=== PATIENT | female | born 1940 | race Caucasian/White ===

== ENCOUNTER 2018-07-10 21:16 | Emergency (ER) | payer OTHER ==
--- OUTSIDE RECORDS SUMMARY | 2018-07-10 21:18 | XMS REPORT ---
:1940 [facility] [address] [place] [address] Care Team Providers Name Role Phone DOMINIC ANN Unavailable Unavailable Problems This patient has no known problems. Allergies, Adverse Reactions, Alerts This patient has no known allergies or adverse reactions. Medications This patient has no known medications. Results Test Description Test Time Test Comments Text Results Atomic Results Result Comments RAD, CHEST, 1 2018-04-19 10:16:00 Reason for exam:->S/P FINAL REPORT PATIENT ID: VIEW, NON DEPT EVARShould this be [id number] Chest one view performed at the INDICATION: EVAR bedside?->Yes COMPARISON: 04/18/2018 IMPRESSION: The aorta remains ectatic/tortuous, exaggerated by obliquity. The cardiac silhouette is enlarged. There are coarsened interstitial markings and faint basilar opacities suggestive of atelectasis. No new consolidation, significant pleural effusion, or pneumothorax is seen. Abdominal aortic stent graft is present. The bones appear unchanged. A lower right chest skin fold is suspected. Signed: Dena Talaveraort Verified Date/Time: 04/19/2018 10:16:05 Reading Location: [facility] Radiology Reading Room PHORUS 2018-04-19 05:21:00 Test Item Value Reference Range Comments PHOSPHORUS (BEAKER) (test awrg=323) 4.0 mg/dL 2.3-4.7 [id number] 05:21:00 Test Item Value Reference Range Comments MAGNESIUM (BEAKER) (test wrpj=824) 2.2 mg/dL 1.6-2.6 BASIC METABOLIC [id number] 05:21:00 Test Item Value Reference Range Comments SODIUM (BEAKER) (test 141 meq/L 136-145 mhap=027) POTASSIUM (BEAKER) (test 3.6 meq/L 3.5-5.1 tknq=387) CHLORIDE (BEAKER) (test 106 meq/L 98-107 jqay=824) CO2 (BEAKER) (test 28 meq/L 22-29 ndee=141) BLOOD UREA NITROGEN 20 mg/dL 7-21 (BEAKER) (test xswp=146) CREATININE (BEAKER) (test 0.87 mg/dL 0.57-1.25 mobl=569) GLUCOSE RANDOM (BEAKER) 122 mg/dL 70-105 (test loaz=997) CALCIUM (BEAKER) (test 9.0 mg/dL 8.4-10.2 gamg=701) EGFR (BEAKER) (test 63 mL/min/1.73 sq m ESTIMATED GFR IS NOT fetm=6562) ACCURATE CREATININE CLEARANCE IN PREDICTING GLOMERULAR FILTRATION RATE. ESTIMATED GFR IS NOT APPLICABLE FOR DIALYSIS PATIENTS. [id number] 04:58:00 Test Item Value Reference Range Comments PARTIAL THROMBOPLASTIN TIME (BEAKER) (test 36.6 seconds 22.5-36.0 gcbk=857) PROTHROMBIN TIME/[id number] 04:57:00 Test Item Value Reference Range Comments PROTIME (BEAKER) (test clni=751) 15.9 seconds 11.7-14.7 INR (BEAKER) (test dbep=669) 1.3 <=5.9 RECOMMENDED COUMADIN/WARFARIN INR THERAPY RANGESSTANDARD DOSE: 2.0 - 3.0 Includes: PROPHYLAXIS forvenous thrombosis, systemic embolization; TREATMENT for venous thrombosis and/or pulmonary embolus.HIGH RISK: Target INR is 2.5-3.5 for patients with mechanical heart valves.CBC (HEMOGRAM ONLY)2018-04-19 04:47:00 Test Item Value Reference Range Comments WHITE BLOOD CELL COUNT (BEAKER) (test qbak=685) 9.5 K/ L 3.5-10.5 RED BLOOD CELL COUNT (BEAKER) (test gtzg=475) 3.64 M/ L 3.93-5.22 HEMOGLOBIN (BEAKER) (test zhbo=455) 10.6 GM/DL 11.2-15.7 HEMATOCRIT (BEAKER) (test qzny=703) 33.8 % 34.1-44.9 MEAN CORPUSCULAR VOLUME (BEAKER) (test epsj=621) 92.9 fL 79.4-94.8 MEAN CORPUSCULAR HEMOGLOBIN (BEAKER) (test 29.1 pg 25.6-32.2 cbnk=851) MEAN CORPUSCULAR HEMOGLOBIN CONC (BEAKER) (test 31.4 GM/DL 32.2-35.5 yhqz=116) RED CELL DISTRIBUTION WIDTH (BEAKER) (test 14.1 % 11.7-14.4 mrtw=969) PLATELET COUNT (BEAKER) (test ahoq=002) 232 K/CU MM 150-450 MEAN PLATELET VOLUME (BEAKER) (test wvxl=603) 10.9 fL 9.4-12.3 NUCLEATED RED BLOOD CELLS (BEAKER) (test 0 /100 WBC 0-0 zvvq=848) RAD, CHEST, 1 VIEW, NON [id number] 08:00:00Reason for exam:->S/P EVARShould this be performed at the bedside?->YesFINAL REPORT Chest one view INDICATION: EVAR COMPARISON: 04/17/2018 IMPRESSION: The aorta remains ectatic/tortuous. There is stable cardiomegaly. There are coarsened interstitial markings. Faint basilar opacities suggest atelectasis. No new consolidation, significant pleural effusion, or pneumothorax is seen. Abdominal aortic stent graft is present. The bones appear unchanged. Signed: Dena Talavera Verified Date/Time: 04/18/2018 08:00:53 Reading Location: [facility] Radiology Reading Room [id number] 05:25:00 Test Item Value Reference Range Comments PHOSPHORUS (BEAKER) (test wuzw=710) 3.6 mg/dL 2.3-4.7 [id number] 05:25:00 Test Item Value Reference Range Comments MAGNESIUM (BEAKER) (test mvdq=887) 2.2 mg/dL 1.6-2.6 BASIC METABOLIC [id number] 05:25:00 Test Item Value Reference Range Comments SODIUM (BEAKER) (test 139 meq/L 136-145 xfyy=812) POTASSIUM (BEAKER) (test 3.2 meq/L 3.5-5.1 bbjg=890) CHLORIDE (BEAKER) (test 103 meq/L 98-107 yhuu=063) CO2 (BEAKER) (test 25 meq/L 22-29 itkg=548) BLOOD UREA NITROGEN 17 mg/dL 7-21 (BEAKER) (test sldb=378) CREATININE (BEAKER) (test 0.86 mg/dL 0.57-1.25 ytkr=707) GLUCOSE RANDOM (BEAKER) 150 mg/dL 70-105 (test kcbh=281) CALCIUM (BEAKER) (test 9.6 mg/dL 8.4-10.2 rcju=291) EGFR (BEAKER) (test 64 mL/min/1.73 sq m ESTIMATED GFR IS NOT bjmp=8029) ACCURATE CREATININE CLEARANCE IN PREDICTING GLOMERULAR FILTRATION RATE. ESTIMATED GFR IS NOT APPLICABLE FOR DIALYSIS PATIENTS. [id number] 05:06:00 Test Item Value Reference Range Comments PARTIAL THROMBOPLASTIN TIME (BEAKER) (test 36.5 seconds 22.5-36.0 gdgp=493) PROTHROMBIN TIME/[id number] 05:05:00 Test Item Value Reference Range Comments PROTIME (BEAKER) (test bfpr=874) 16.5 seconds 11.7-14.7 INR (BEAKER) (test reyc=976) 1.3 <=5.9 RECOMMENDED COUMADIN/WARFARIN INR THERAPY RANGESSTANDARD DOSE: 2.0 - 3.0 Includes: PROPHYLAXIS forvenous thrombosis, systemic embolization; TREATMENT for venous thrombosis and/or pulmonary embolus.HIGH RISK: Target INR is 2.5-3.5 for patients with mechanical heart valves.CBC (HEMOGRAM ONLY)2018-04-18 04:52:00 Test Item Value Reference Range Comments WHITE BLOOD CELL COUNT (BEAKER) (test wzhw=307) 11.2 K/ L 3.5-10.5 RED BLOOD CELL COUNT (BEAKER) (test yrle=721) 3.90 M/ L 3.93-5.22 HEMOGLOBIN (BEAKER) (test wddx=424) 11.3 GM/DL 11.2-15.7 HEMATOCRIT (BEAKER) (test squn=892) 35.7 % 34.1-44.9 MEAN CORPUSCULAR VOLUME (BEAKER) (test prqu=121) 91.5 fL 79.4-94.8 MEAN CORPUSCULAR HEMOGLOBIN (BEAKER) (test 29.0 pg 25.6-32.2 ikmq=661) MEAN CORPUSCULAR HEMOGLOBIN CONC (BEAKER) (test 31.7 GM/DL 32.2-35.5 pmpz=040) RED CELL DISTRIBUTION WIDTH (BEAKER) (test 14.2 % 11.7-14.4 rpzi=215) PLATELET COUNT (BEAKER) (test exzi=908) 208 K/CU MM 150-450 MEAN PLATELET VOLUME (BEAKER) (test ligl=847) 10.6 fL 9.4-12.3 NUCLEATED RED BLOOD CELLS (BEAKER) (test 0 /100 WBC 0-0 wcyw=789) RAD, CHEST, 1 VIEW, NON [id number] 10:31:00Reason for exam:->S/P EVARShould this be performed at the bedside?->YesFINAL REPORT Chest, one view. HISTORY: Status post aortic repair COMPARISON: 2017 IMPRESSION: No significant change. Unchanged tortuosity and ectasia of the thoracic aorta.Mild interstitial edema. No large pleural effusion or pneumothorax. Signed: Gera Hernandez Verified Date/Time: 04/17/2018 10: 31:41 Reading Location: [facility] C013Y CT Body Reading Room [id number] 06: 43:00 Test Item Value Reference Range Comments PHOSPHORUS (BEAKER) (test vovc=934) 3.3 mg/dL 2.3-4.7 [id number] 06:43:00 Test Item Value Reference Range Comments MAGNESIUM (BEAKER) (test mxix=297) 2.0 mg/dL 1.6-2.6 [id number] 06:23:00 Test Item Value Reference Range Comments PARTIAL THROMBOPLASTIN TIME (BEAKER) (test 36.4 seconds 22.5-36.0 uknz=112) PROTHROMBIN TIME/[id number] 06:22:00 Test Item Value Reference Range Comments PROTIME (BEAKER) (test ultq=443) 17.3 seconds 11.7-14.7 INR (BEAKER) (test yolf=076) 1.4 <=5.9 RECOMMENDED COUMADIN/WARFARIN INR THERAPY RANGESSTANDARD DOSE: 2.0 - 3.0 Includes: PROPHYLAXIS forvenous thrombosis, systemic embolization; TREATMENT for venous thrombosis and/or pulmonary embolus.HIGH RISK: Target INR is 2.5-3.5 for patients with mechanical heart valves.CBC (HEMOGRAM ONLY)2018-04-17 06:13:00 Test Item Value Reference Range Comments WHITE BLOOD CELL COUNT (BEAKER) (test jdle=066) 13.2 K/ L 3.5-10.5 RED BLOOD CELL COUNT (BEAKER) (test arul=290) 3.84 M/ L 3.93-5.22 HEMOGLOBIN (BEAKER) (test oeqq=921) 11.5 GM/DL 11.2-15.7 HEMATOCRIT (BEAKER) (test mhzk=406) 34.9 % 34.1-44.9 MEAN CORPUSCULAR VOLUME (BEAKER) (test pmog=194) 90.9 fL 79.4-94.8 MEAN CORPUSCULAR HEMOGLOBIN (BEAKER) (test 29.9 pg 25.6-32.2 xwsk=550) MEAN CORPUSCULAR HEMOGLOBIN CONC (BEAKER) (test 33.0 GM/DL 32.2-35.5 eevz=287) RED CELL DISTRIBUTION WIDTH (BEAKER) (test 14.0 % 11.7-14.4 pqir=539) PLATELET COUNT (BEAKER) (test eanu=862) 201 K/CU MM 150-450 MEAN PLATELET VOLUME (BEAKER) (test soye=435) 10.6 fL 9.4-12.3 NUCLEATED RED BLOOD CELLS (BEAKER) (test 0 /100 WBC 0-0 owiy=903) RAD, CHEST, 1 VIEW, NON [id number] 09:02:00Reason for exam:->S/P EVARShould this be performed at the bedside?->YesFINAL REPORT Chest, one view. HISTORY: Status post aortic repair COMPARISON: 2017 IMPRESSION: No significant change. Unchanged tortuosity and ectasia of the thoracic aorta.Lungs clear without focal consolidation. No large pleural effusion or pneumothorax. Unchanged right apical pleural thickening. Partially visualized aortic stent graft in the abdominal aorta. Signed: Gera Hernandez MDReport Verified Date/Time: 04/16/2018 09:02:11 Reading Location: [facility] B1 C013Y CT Body Reading Room [id number] 06:11:00 Test Item Value Reference Range Comments PHOSPHORUS (BEAKER) (test qzoh=552) 1.9 mg/dL 2.3-4.7 [id number] 06:11:00 Test Item Value Reference Range Comments MAGNESIUM (BEAKER) (test arvv=546) 2.0 mg/dL 1.6-2.6 BASIC METABOLIC [id number] 06:11:00 Test Item Value Reference Range Comments SODIUM (BEAKER) (test 137 meq/L 136-145 uemg=951) POTASSIUM (BEAKER) (test 3.2 meq/L 3.5-5.1 uerk=371) CHLORIDE (BEAKER) (test 104 meq/L 98-107 cwez=990) CO2 (BEAKER) (test 24 meq/L 22-29 wezp=703) BLOOD UREA NITROGEN 7 mg/dL 7-21 (BEAKER) (test lyzq=744) CREATININE (BEAKER) (test 0.86 mg/dL 0.57-1.25 awdi=499) GLUCOSE RANDOM (BEAKER) 179 mg/dL 70-105 (test qdhx=186) CALCIUM (BEAKER) (test 9.0 mg/dL 8.4-10.2 fmav=204) EGFR (BEAKER) (test 64 mL/min/1.73 sq m ESTIMATED GFR IS NOT xlpc=5153) ACCURATE CREATININE CLEARANCE IN PREDICTING GLOMERULAR FILTRATION RATE. ESTIMATED GFR IS NOT APPLICABLE FOR DIALYSIS PATIENTS. [id number] 05:46:00 Test Item Value Reference Range Comments PARTIAL THROMBOPLASTIN TIME (BEAKER) (test 32.0 seconds 22.5-36.0 nwzv=045) PROTHROMBIN TIME/[id number] 05:45:00 Test Item Value Reference Range Comments PROTIME (BEAKER) (test wgml=465) 15.0 seconds 11.7-14.7 INR (BEAKER) (test ohwm=290) 1.2 <=5.9 RECOMMENDED COUMADIN/WARFARIN INR THERAPY RANGESSTANDARD DOSE: 2.0 - 3.0 Includes: PROPHYLAXIS forvenous thrombosis, systemic embolization; TREATMENT for venous thrombosis and/or pulmonary embolus.HIGH RISK: Target INR is 2.5-3.5 for patients with mechanical heart valves.CBC (HEMOGRAM ONLY)2018-04-16 05:31:00 Test Item Value Reference Range Comments WHITE BLOOD CELL COUNT (BEAKER) (test gpti=920) 12.0 K/ L 3.5-10.5 RED BLOOD CELL COUNT (BEAKER) (test xxyr=343) 4.19 M/ L 3.93-5.22 HEMOGLOBIN (BEAKER) (test vihp=368) 12.4 GM/DL 11.2-15.7 HEMATOCRIT (BEAKER) (test uzxg=573) 38.6 % 34.1-44.9 MEAN CORPUSCULAR VOLUME (BEAKER) (test sgon=466) 92.1 fL 79.4-94.8 MEAN CORPUSCULAR HEMOGLOBIN (BEAKER) (test 29.6 pg 25.6-32.2 cnbf=922) MEAN CORPUSCULAR HEMOGLOBIN CONC (BEAKER) (test 32.1 GM/DL 32.2-35.5 ddhf=324) RED CELL DISTRIBUTION WIDTH (BEAKER) (test 14.0 % 11.7-14.4 xeln=386) PLATELET COUNT (BEAKER) (test ayby=331) 223 K/CU MM 150-450 MEAN PLATELET VOLUME (BEAKER) (test nibc=300) 10.3 fL 9.4-12.3 NUCLEATED RED BLOOD CELLS (BEAKER) (test 0 /100 WBC 0-0 xpdd=072) [id number] 13:56:00 Test Item Value Reference Range Comments ACTIVATED CLOTTING TIME 257 sec TESTED AT [facility] [address] (BEAKER) (test rehu=715) [place] [address] RAD, ABDOMEN/KUB, 1 VIEW [id number] 12:39:00Reason for exam:->Postop AAAFINAL REPORT CLINICAL HISTORY: Postop AAA TECHNIQUE: Supine abdomen COMPARISON: None IMPRESSION: The bowel gas pattern is nonspecific. Free air and air-fluid levels are not seen but cannot be definitively excluded on the supine view. There is vicarious excretion of contrast in the bilateral nephroureteral collecting systems. There is an aortobiiliac stent. Signed: Hardik GodwinMDReport Verified Date/Time: 2017 12:39:57 Reading Location: [facility] Radiology Reading Room RAD, CHEST , 1 VIEW, NON [id number] 12:38:00For chest painReason for exam:->post opShould this be performed at the bedside?->YesFINAL REPORT CLINICAL HISTORY: post op TECHNIQUE: 1 view of the chest. COMPARISON: 04/10/2018 IMPRESSION: There are no focal infiltrates or effusions. Cardiomegaly is again seen with tortuosity of the thoracic aorta. Signed: Hardik Godwin MDReport Verified Date/Time: 04/15/201812:38:40 Reading Location: [facility] Radiology Reading Room [id number] 11:51:00 Test Item Value Reference Range Comments PHOSPHORUS (BEAKER) (test oebc=541) 3.2 mg/dL 2.3-4.7 BASIC METABOLIC [id number] 11:51:00 Test Item Value Reference Range Comments SODIUM (BEAKER) (test 140 meq/L 136-145 rwrj=614) POTASSIUM (BEAKER) (test 3.8 meq/L 3.5-5.1 shtp=629) CHLORIDE (BEAKER) (test 109 meq/L 98-107 kvhm=207) CO2 (BEAKER) (test 24 meq/L 22-29 dgyz=400) BLOOD UREA NITROGEN 12 mg/dL 7-21 (BEAKER) (test emsy=627) CREATININE (BEAKER) (test 0.77 mg/dL 0.57-1.25 qsjh=317) GLUCOSE RANDOM (BEAKER) 176 mg/dL 70-105 (test qdtq=201) CALCIUM (BEAKER) (test 9.7 mg/dL 8.4-10.2 lkin=929) EGFR (BEAKER) (test 73 mL/min/1.73 sq m ESTIMATED GFR IS NOT flfb=0371) ACCURATE CREATININE CLEARANCE IN PREDICTING GLOMERULAR FILTRATION RATE. ESTIMATED GFR IS NOT APPLICABLE FOR DIALYSIS PATIENTS. CBC W/PLT COUNT & AUTO [id number] 11:23:00 Test Item Value Reference Range Comments WHITE BLOOD CELL COUNT (BEAKER) (test zgxb=310) 12.0 K/ L 3.5-10.5 RED BLOOD CELL COUNT (BEAKER) (test gonr=255) 3.84 M/ L 3.93-5.22 HEMOGLOBIN (BEAKER) (test ocpd=730) 11.4 GM/DL 11.2-15.7 HEMATOCRIT (BEAKER) (test cqak=172) 35.7 % 34.1-44.9 MEAN CORPUSCULAR VOLUME (BEAKER) (test pvum=761) 93.0 fL 79.4-94.8 MEAN CORPUSCULAR HEMOGLOBIN (BEAKER) (test 29.7 pg 25.6-32.2 vniv=403) MEAN CORPUSCULAR HEMOGLOBIN CONC (BEAKER) (test 31.9 GM/DL 32.2-35.5 gmmj=656) RED CELL DISTRIBUTION WIDTH (BEAKER) (test 14.1 % 11.7-14.4 agpn=173) PLATELET COUNT (BEAKER) (test grcb=548) 207 K/CU MM 150-450 MEAN PLATELET VOLUME (BEAKER) (test dpap=273) 10.7 fL 9.4-12.3 NUCLEATED RED BLOOD CELLS (BEAKER) (test 0 /100 WBC 0-0 yzhz=065) NEUTROPHILS RELATIVE PERCENT (BEAKER) (test 77 % buvq=731) LYMPHOCYTES RELATIVE PERCENT (BEAKER) (test 15 % myws=825) MONOCYTES RELATIVE PERCENT (BEAKER) (test 6 % dypf=971) EOSINOPHILS RELATIVE PERCENT (BEAKER) (test 1 % wlcd=266) BASOPHILS RELATIVE PERCENT (BEAKER) (test 1 % pktn=859) NEUTROPHILS ABSOLUTE COUNT (BEAKER) (test 9.14 K/ L 1.56-6.13 etsm=423) LYMPHOCYTES ABSOLUTE COUNT (BEAKER) (test 1.78 K/ L 1.18-3.74 xzpf=261) MONOCYTES ABSOLUTE COUNT (BEAKER) (test 0.72 K/ L 0.24-0.36 ayoi=624) EOSINOPHILS ABSOLUTE COUNT (BEAKER) (test 0.16 K/ L 0.04-0.36 atbw=723) BASOPHILS ABSOLUTE COUNT (BEAKER) (test 0.06 K/ L 0.01-0.08 helj=430) IMMATURE GRANULOCYTES-RELATIVE PERCENT (BEAKER) 1 % 0-1 (test ldnl=5010) PROTHROMBIN TIME/[id number] 11:22:00 Test Item Value Reference Range Comments PROTIME (BEAKER) (test ewlf=459) 15.7 seconds 11.7-14.7 INR (BEAKER) (test huzz=457) 1.3 <=5.9 RECOMMENDED COUMADIN/WARFARIN INR THERAPY RANGESSTANDARD DOSE: 2.0 - 3.0 Includes: PROPHYLAXIS forvenous thrombosis, systemic embolization; TREATMENT for venous thrombosis and/or pulmonary embolus.HIGH RISK: Target INR is 2.5-3.5 for patients with mechanical heart valves.CALCIUM, [id number] 11:06:00 Test Item Value Reference Range Comments CALCIUM IONIZED (BEAKER) (test vpie=221) 1.25 mmol/L 1.12-1.27 PH, BLOOD (BEAKER) (test sbla=3718) 7.37 HEPATITIS C [id number] 15:18:00 Test Item Value Reference Range Comments HEPATITIS C ANTIBODY (BEAKER) (test xlli=689) Nonreactive Nonreactive HEPATITIS B [id number] 15:18:00 Test Item Value Reference Range Comments HEPATITIS B CORE TOTAL ANTIBODY (BEAKER) (test Nonreactive Nonreactive ueca=222) HEPATITIS B SURFACE ANTIBODY (BEAKER) (test 63.1 mIU/mL <8.0 wofc=820) HEPATITIS B SURFACE ANTIGEN (2) (BEAKER) (test Nonreactive Nonreactive yypi=4148) HIV-1 ANTIGEN WITH HIV-1/2 [id number] 15:18:00 Test Item Value Reference Range Comments HIV-1 ANTIGEN WITH HIV 1\T\2 ANTIBODY (2) Nonreactive Nonreactive (BEAKER) (test wmfp=9238) [id number] 15:08:00 Test Item Value Reference Range Comments LIPASE (BEAKER) (test sxkd=828) 10 U/L 8-78 [id number] 15:08:00 Test Item Value Reference Range Comments AMYLASE (BEAKER) (test srwg=252) 40 U/L 25-125 BASIC METABOLIC [id number] 15:08:00 Test Item Value Reference Range Comments SODIUM (BEAKER) (test 141 meq/L 136-145 kqax=016) POTASSIUM (BEAKER) (test 3.6 meq/L 3.5-5.1 aaeq=554) CHLORIDE (BEAKER) (test 104 meq/L 98-107 zsfr=379) CO2 (BEAKER) (test 27 meq/L 22-29 ahfe=096) BLOOD UREA NITROGEN 12 mg/dL 7-21 (BEAKER) (test ppgg=591) CREATININE (BEAKER) (test 0.86 mg/dL 0.57-1.25 hwko=226) GLUCOSE RANDOM (BEAKER) 112 mg/dL 70-105 (test pmvk=975) CALCIUM (BEAKER) (test 9.8 mg/dL 8.4-10.2 yxvm=741) EGFR (BEAKER) (test 64 mL/min/1.73 sq m ESTIMATED GFR IS NOT sejt=9405) ACCURATE CREATININE CLEARANCE IN PREDICTING GLOMERULAR FILTRATION RATE. ESTIMATED GFR IS NOT APPLICABLE FOR DIALYSIS PATIENTS. HEPATIC FUNCTION [id number] 15:08:00 Test Item Value Reference Range Comments TOTAL PROTEIN (BEAKER) (test cvku=511) 7.1 gm/dL 6.0-8.3 ALBUMIN (BEAKER) (test wqhr=7408) 4.0 g/dL 3.5-5.0 BILIRUBIN TOTAL (BEAKER) (test umob=649) 0.4 mg/dL 0.2-1.2 BILIRUBIN DIRECT (BEAKER) (test jrme=074) 0.2 mg/dL 0.1-0.5 ALKALINE PHOSPHATASE (BEAKER) (test elro=879) 135 U/L 40-150 AST (SGOT) (BEAKER) (test ozgt=982) 22 U/L 5-34 ALT (SGPT) (BEAKER) (test ldfs=359) 22 U/L 6-55 LACTATE DEHYDROGENASE (LDH)2018-04-14 15:08:00 Test Item Value Reference Range Comments LACTATE DEHYDROGENASE (BEAKER) (test qvru=411) 238 U/L 125-220 [id number] 14:47:00 Test Item Value Reference Range Comments PARTIAL THROMBOPLASTIN TIME (BEAKER) (test 31.9 seconds 22.5-36.0 iibn=008) PROTHROMBIN [id number] 14:46:00 Test Item Value Reference Range Comments PROTIME (BEAKER) (test jeop=266) 14.1 seconds 11.7-14.7 INR (BEAKER) (test ookh=477) 1.1 <=5.9 RECOMMENDED COUMADIN/WARFARIN INR THERAPY RANGESSTANDARD DOSE: 2.0 - 3.0 Includes: PROPHYLAXIS forvenous thrombosis, systemic embolization; TREATMENT for venous thrombosis and/or pulmonary embolus.HIGH RISK: Target INR is 2.5-3.5 for patients with mechanical heart valves.RETICULOCYTE [id number] 14:36:00 Test Item Value Reference Range Comments RETICULOCYTE COUNT PCT (BEAKER) (test ftkx=253) 1.0 % 0.5-1.7 CBC W/PLT COUNT & AUTO [id number] 14:36:00 Test Item Value Reference Range Comments WHITE BLOOD CELL COUNT (BEAKER) (test bgjr=552) 9.3 K/ L 3.5-10.5 RED BLOOD CELL COUNT (BEAKER) (test xsws=252) 4.05 M/ L 3.93-5.22 HEMOGLOBIN (BEAKER) (test zygs=262) 12.2 GM/DL 11.2-15.7 HEMATOCRIT (BEAKER) (test nxhz=085) 37.2 % 34.1-44.9 MEAN CORPUSCULAR VOLUME (BEAKER) (test iwwo=667) 91.9 fL 79.4-94.8 MEAN CORPUSCULAR HEMOGLOBIN (BEAKER) (test 30.1 pg 25.6-32.2 hnpc=352) MEAN CORPUSCULAR HEMOGLOBIN CONC (BEAKER) (test 32.8 GM/DL 32.2-35.5 yyya=837) RED CELL DISTRIBUTION WIDTH (BEAKER) (test 14.2 % 11.7-14.4 gpmk=058) PLATELET COUNT (BEAKER) (test yixv=547) 259 K/CU MM 150-450 MEAN PLATELET VOLUME (BEAKER) (test nhbj=528) 11.1 fL 9.4-12.3 NUCLEATED RED BLOOD CELLS (BEAKER) (test 0 /100 WBC 0-0 eulw=694) NEUTROPHILS RELATIVE PERCENT (BEAKER) (test 70 % sahi=971) LYMPHOCYTES RELATIVE PERCENT (BEAKER) (test 19 % yycd=489) MONOCYTES RELATIVE PERCENT (BEAKER) (test 8 % mynn=209) EOSINOPHILS RELATIVE PERCENT (BEAKER) (test 2 % jmsr=894) BASOPHILS RELATIVE PERCENT (BEAKER) (test 1 % prud=596) NEUTROPHILS ABSOLUTE COUNT (BEAKER) (test 6.49 K/ L 1.56-6.13 jmdp=028) LYMPHOCYTES ABSOLUTE COUNT (BEAKER) (test 1.74 K/ L 1.18-3.74 xzxa=410) MONOCYTES ABSOLUTE COUNT (BEAKER) (test 0.78 K/ L 0.24-0.36 cqvz=811) EOSINOPHILS ABSOLUTE COUNT (BEAKER) (test 0.14 K/ L 0.04-0.36 cfjj=657) BASOPHILS ABSOLUTE COUNT (BEAKER) (test 0.07 K/ L 0.01-0.08 rnmr=335) IMMATURE GRANULOCYTES-RELATIVE PERCENT (BEAKER) 0 % 0-1 (test rlyo=6226) URINALYSIS W/ [id number] 14:25:00 Test Item Value Reference Range Comments COLOR (BEAKER) (test cpoh=229) Yellow CLARITY (BEAKER) (test nfcv=566) Clear SPECIFIC GRAVITY UA (BEAKER) (test qzie=546) 1.010 1.001-1.035 PH UA (BEAKER) (test vhxc=990) 6.5 5.0-8.0 PROTEIN UA (BEAKER) (test jipf=158) 20 mg/dL Negative GLUCOSE UA (BEAKER) (test nlrr=022) Negative Negative KETONES UA (BEAKER) (test jkuf=498) Negative Negative BILIRUBIN UA (BEAKER) (test guni=477) Negative Negative BLOOD UA (BEAKER) (test frgh=383) Negative Negative NITRITE UA (BEAKER) (test fbrp=495) Negative Negative LEUKOCYTE ESTERASE UA (BEAKER) (test eejy=136) Negative Negative UROBILINOGEN UA (BEAKER) (test ttwz=090) 0.2 mg/dL 0.2-1.0 RBC UA (BEAKER) (test wfxj=725) < /HPF WBC UA (BEAKER) (test thql=259) < /HPF MUCUS (BEAKER) (test wivq=3062) Rare SQUAMOUS EPITHELIAL (BEAKER) (test hdds=877) < /HPF HYALINE CASTS (BEAKER) (test mkej=547) 4 /LPF SOURCE(BEAKER) (test wzhk=4895) RAD, CHEST, 2 [id number] 14:12:00Reason for exam:->surgeryFINAL REPORT Chest, two views HISTORY: Surgery COMPARISON: None. DISCUSSION: Lungs are clear without focal consolidation. Cardiomediastinal silhouette is unremarkable. Tortuosityand ectasia of the thoracic aorta. No acute osseous abnormality. No pleural effusion or pneumothorax. Visualized portions of the upper abdomen are unremarkable. IMPRESSION: No acute cardiopulmonary abnormality. Signed: Gera Hernandez MDReport Verified Date/Time: 04/14/2018 14:12:09 Reading Location: [address] Radiology Reading Room 02:12 PM
--- OUTSIDE RECORDS SUMMARY | 2018-07-10 21:18 | XMS REPORT | Clinical Summary ---
:1940 Author Organization [facility] Address [address] [place] [address] Phone Care Team Providers Name Role Phone Unavailable Primary Care Provider Unavailable Allergies Active Allergy Reactions Severity Noted Date Comments Hydrocodone-Acetaminophen Other (See Comments) 04/13/2018 hyperactivity Lisinopril 04/13/2018 angioedema Butorphanol Tartrate Other (See Comments) 04/14/2018 Hallucinations Flbtqmz-Rie-Nza Reductase Other (See Comments) 04/14/2018 Flu like symptoms Inhibitors Current Medications Prescription Sig. Disp. Refills Start Date End Date Status ALPRAZolam (XANAX) Take 0.5 mg Active 0.5 MG tablet by mouth 3 (three) times daily as needed for Anxiety. PARoxetine (PAXIL) Take 10 mg by Active 10 MG tablet mouth every morning. loratadine Take 10 mg by Active (CLARITIN) 10 mg mouth daily. tablet famotidine (PEPCID) Take 20 mg by Active 20 MG tablet mouth daily. triamcinolone 2 sprays by Active (NASACORT) 55 mcg Nasal route nasal inhaler daily. acetaminophen Take 2 30 tablet 0 04/19/2018 Active (TYLENOL) 325 MG tablets (650 tablet mg total) by mouth every 6 (six) hours as needed for Fever. metoprolol Take 50 mg by 04/19/2018 Discontinued (TOPROL-XL) 50 MG 24 mouth daily. hr tablet amLODIPine (NORVASC) Take 1 tablet 30 tablet 0 04/20/2018 05/20/2018 5 MG tablet (5 mg total) by mouth daily for 30 days. carvedilol (COREG) Take 1 tablet 60 tablet 0 04/19/2018 05/19/2018 6.25 MG tablet (6.25 mg total) by mouth 2 (two) times daily for 30 days. Active Problems Problem Noted Date Abdominal aortic aneurysm (AAA) 3.0 cm to 5.0 cm in diameter in female 2017 (HCC) Abdominal aortic aneurysm (AAA) (HCC) 04/15/2018 At high risk for hemodynamic instability 04/15/2018 Endovascular stent graft for abdominal aortic aneurysm 04/15/2018 Encounters Date Type Specialty Care Team Description 04/15/2018 - Hospital Encounter Cardiology Arnaldo Avelar At high risk for 04/19/2018 MD Nat hemodynamic instability 04/15/2018 Anesthesia Event Ravi Goel MD 04/15/2018 Procedure Pass 04/15/2018 Surgery Arnaldo Avelar REPAIR,EVAR-ENDOVAS MD Nat CULAR AORTIC ANEURYSM 04/14/2018 Hospital Encounter Arnaldo Avelar MD 04/14/2018 Hospital Encounter Cardiology Arnaldo Avelar MD 04/14/2018 Hospital Encounter Pre-Admission Arnaldo Avelar Thoracic aortic Testing MD Nat aneurysm without rupture (HCC) 04/14/2018 Outside Orders Arnaldo Avelar MD 04/13/2018 Orders Only Arnaldo Avelra Thoracic aortic MD Nat aneurysm without rupture (HCC) (Primary Dx) after 07/09/2017 Social History Tobacco Use Types Packs/Day Years Used Date Former Smoker Smokeless Tobacco: Never Used Alcohol Use Drinks/Week oz/Week Comments No Sex Assigned at Date Recorded Not on file Last Filed Vital Signs Vital Sign Reading Time Taken Blood Pressure 148/70 04/19/2018 3:04 PM CDT Pulse 76 04/19/2018 3:04 PM CDT Temperature 37.6 C (99.7 F) 04/19/2018 3:04 PM CDT Respiratory Rate 18 04/19/2018 3:04 PM CDT Oxygen Saturation 94% 04/19/2018 3:04 PM CDT Inhaled Oxygen Concentration - - Weight 71.3 kg (157 lb 3 oz) 04/19/2018 8:05 AM CDT Height 170.2 cm (5' 7") 04/15/2018 6:00 AM CDT Body Mass Index 24.62 04/19/2018 8:05 AM CDT Plan of Treatment Not on file Implants Implanted Type Area Design Checker Device Expiration Model / Identifier Date Serial / Lot Grft Iliac Aaa Leg 13x90 [id number] - [id number] CV Aneurysm Right: COOK:AORTIC 10/13/2020 [id number] / Implanted: Qty: 1 on 04/15/2018 by Arnaldo Avelar MD Groin INTERVENTION / [id number] Closure Sys Perclose Progl 6fr 75980-33 - [id number] Cardiovascular Left: WANG 11/18/2019 [id number] / Implanted: Qty: 1 on 04/15/2018 by Arnaldo Avelar MD Groin LAB: VAS DEV / [id number] Closure Sys Perclose Progl 6fr 56479-00 - [id number] Cardiovascular Left: WANG 01/18/2020 [id number] / Implanted: Qty: 1 on 04/15/2018 by Arnaldo Avelar MD Groin LAB: VASC DEV / [id number] Closure Sys Perclose Progl 6fr 08370-22 - [id number] Cardiovascular Right: WANG 11/18/2019 [id number] / Implanted: Qty: 1 on 04/15/2018 by Arnaldo Avelar MD Groin LAB: VAS DEV / [id number] Closure Sys Perclose Progl 6fr 30326-99 - [id number] Cardiovascular Right: WANG 11/18/2019 [id number] / Implanted: Qty: 1 on 04/15/2018 by Arnaldo Avelar MD Groin LAB: VAS DEV / [id number] Endovascular Graft N/A: [employer] [facility] 02/27/2020 [id number] / Implanted: Qty: 1 on 04/15/2018 by Arnaldo Avelar MD Groin / [id number] Iliac Leg Graft Right: [employer] [facility] 12/28/2020 [id number] / Implanted: Qty: 1 on 04/15/2018 by Arnaldo Avelar MD Groin / Procedures Procedure Name Priority Date/Time Associated Diagnosis Comments REPAIR,EVAR-ENDOVASCUL 04/15/2018 7:30 AM Abdominal aortic AR AORTIC ANEURYSM CDT aneurysm (AAA) without rupture (HCC) after 07/09/2017 Results VASCULAR DIAGRAM -SCAN (04/21/2018 8:40 AM)RHYTHM STRIP - SCAN (04/21/2018 8: 40 AM)XR chest 1 view portable / bedside (04/19/2018 9:48 AM)Only the most recent of5 resultswithin the time period is included. Specimen Performing Laboratory GE RIS Narrative FINAL REPORT Chest one view INDICATION: EVAR COMPARISON: 04/18/2018 IMPRESSION: The aorta remains ectatic/tortuous, exaggerated by obliquity. The cardiac silhouette is enlarged. There are coarsened interstitial markings and faint basilar opacities suggestive of atelectasis. No new consolidation, significant pleural effusion, or pneumothorax is seen. Abdominal aortic stent graft is present. The bones appear unchanged. A lower right chest skin fold is suspected. Signed: Dena Talavera MD Report Verified Date/Time:04/19/2018 10:16:05 Reading Location: [facility] Radiology Reading Room Procedure Note Interface, External Ris In - 04/19/2018 11:31 AM CDT FINAL REPORT Chest one view INDICATION: EVAR COMPARISON: 04/18/2018 IMPRESSION: The aorta remains ectatic/tortuous, exaggerated by obliquity. The cardiac silhouette is enlarged. There are coarsened interstitial markings and faint basilar opacities suggestive of atelectasis. No new consolidation, significant pleural effusion, or pneumothorax is seen. Abdominal aortic stent graft is present. The bones appear unchanged. A lower right chest skin fold is suspected. Signed: Dena Talavera MD Report Verified Date/Time: 04/19/2018 10:16:05 Reading Location: [facility] Radiology Reading Room aPTT (04/19/2018 4:02 AM)Only the most recent of5 resultswithin the time period is included. Component Value Ref Range PTT 36.6 (H) 22.5 - 36.0 seconds Specimen Performing Laboratory Blood [facility] [address] [address] Prothrombin time/INR (04/19/2018 4:02 AM)Only the most recent of6 resultswithin the time period is included. Component Value Ref Range Protime 15.9 (H) 11.7 - 14.7 seconds INR 1.3 <=5.9 Specimen Performing Laboratory Blood [facility] [address] [place] [address] Narrative RECOMMENDED COUMADIN/WARFARIN INR THERAPY RANGES STANDARD DOSE: 2.0 - 3.0 Includes: PROPHYLAXIS for venous thrombosis, systemic embolization; TREATMENT for venous thrombosis and/or pulmonary embolus. HIGH RISK: Target INR is 2.5-3.5 for patients with mechanical heart valves. CBC (Hemogram only) (04/19/2018 4:02 AM)Only the most recent of4 resultswithin the time period is included. Component Value Ref Range WBC 9.5 3.5 - 10.5 K/L RBC 3.64 (L) 3.93 - 5.22 M/L Hemoglobin 10.6 (L) 11.2 - 15.7 GM/DL Hematocrit 33.8 (L) 34.1 - 44.9 % MCV 92.9 79.4 - 94.8 fL MCH 29.1 25.6 - 32.2 pg MCHC 31.4 (L) 32.2 - 35.5 GM/DL RDW 14.1 11.7 - 14.4 % Platelets 232 150 - 450 K/CU MM MPV 10.9 9.4 - 12.3 fL nRBC 0 0 - 0 /100 WBC Specimen Performing Laboratory Blood [address] [address] Phosphorus (04/19/2018 4:02 AM)Only the most recent of5 resultswithin the time period is included. Component Value Ref Range Phosphorus 4.0 2.3 - 4.7 mg/dL Specimen Performing Laboratory Blood [address] [address] Magnesium (04/19/2018 4:02 AM)Only the most recent of4 resultswithin the time period is included. Component Value Ref Range Magnesium 2.2 1.6 - 2.6 mg/dL Specimen Performing Laboratory Blood [address] [address] Basic Metabolic Panel (04/19/2018 4:02 AM)Only the most recent of5 resultswithin the time period is included. Component Value Ref Range Sodium 141 136 - 145 meq/L Potassium 3.6 3.5 - 5.1 meq/L Chloride 106 98 - 107 meq/L CO2 28 22 - 29 meq/L BUN 20 7 - 21 mg/dL Creatinine 0.87 0.57 - 1.25 mg/dL Glucose 122 (H) 70 - 105 mg/dL Calcium 9.0 8.4 - 10.2 mg/dL EGFR 63Comment: ESTIMATED GFR IS NOT ACCURATE mL/min/1.73 sq m CREATININE CLEARANCE IN PREDICTING GLOMERULAR FILTRATION RATE. ESTIMATED GFR IS NOT APPLICABLE FOR DIALYSIS PATIENTS. Specimen Performing Laboratory Blood [address] [address] TRANSFUSION SERVICE REPORT - SCAN (04/15/2018 5:54 PM)XR abdomen / KUB 1 view ( 04/15/2018 11:46 AM) Specimen Performing Laboratory GE RIS Narrative FINAL REPORT CLINICAL HISTORY: Postop AAA TECHNIQUE: Supine abdomen COMPARISON: None IMPRESSION: The bowel gas pattern is nonspecific. Free air and air-fluid levels are not seen but cannot be definitively excluded on the supine view. There is vicarious excretion of contrast in the bilateral nephroureteral collecting systems. There is an aortobiiliac stent. Signed: Hardik Godwin MD Report Verified Date/Time:04/15/2018 12:39:57 Reading Location: [facility] Radiology Reading Room Procedure Note Interface, External Ris In - 04/15/2018 1:02 PM CDT FINAL REPORT CLINICAL HISTORY: Postop AAA TECHNIQUE: Supine abdomen COMPARISON: None IMPRESSION: The bowel gas pattern is nonspecific. Free air and air-fluid levels are not seen but cannot be definitively excluded on the supine view. There is vicarious excretion of contrast in the bilateral nephroureteral collecting systems. There is an aortobiiliac stent. Signed: Hardik Godwin MD Report Verified Date/Time: 04/15/2018 12:39:57 Reading Location: [facility] Radiology Reading Room Calcium, Ionized (04/15/2018 11:06 AM) Component Value Ref Range Calcium, Ion 1.25 1.12 - 1.27 mmol/L pH, Blood 7.37 Specimen Performing Laboratory Blood [address] [place] [address] CBC with platelet count + automated diff (04/15/2018 11:05 AM)Only the most recent of2 resultswithin the time period is included. Component Value Ref Range WBC 12.0 (H) 3.5 - 10.5 K/L RBC 3.84 (L) 3.93 - 5.22 M/L Hemoglobin 11.4 11.2 - 15.7 GM/DL Hematocrit 35.7 34.1 - 44.9 % MCV 93.0 79.4 - 94.8 fL MCH 29.7 25.6 - 32.2 pg MCHC 31.9 (L) 32.2 - 35.5 GM/DL RDW 14.1 11.7 - 14.4 % Platelets 207 150 - 450 K/CU MM MPV 10.7 9.4 - 12.3 fL nRBC 0 0 - 0 /100 WBC % Neutros 77 % % Lymphs 15 % % Monos 6 % % Eos 1 % % Baso 1 % # Neutros 9.14 (H) 1.56 - 6.13 K/L # Lymphs 1.78 1.18 - 3.74 K/L # Monos 0.72 (H) 0.24 - 0.36 K/L # Eos 0.16 0.04 - 0.36 K/L # Baso 0.06 0.01 - 0.08 K/L Immature Granulocytes-Relative 1 0 - 1 % Specimen Performing Laboratory Blood [address] [address] CBC with platelet count + automated diff (04/15/2018 11:05 AM)Only the most recent of2 resultswithin the time period is included. Specimen Performing Laboratory Blood Narrative The following orders were created for panel order CBC with platelet count + automated diff. Procedure Abnormality Status --------- ------ CBC with platelet count ...[[id number]]AbnormalFinal result Please view results for these tests on the individual orders. POC ACTIVATED CLOTTING TIME (04/15/2018 9:02 AM) Component Value Ref Range Activated Clotting Time 257Comment: TESTED AT [address] sec [address] Specimen Performing Laboratory Blood [address] [place] [address] XR chest 2 views (04/14/2018 1:39 PM) Specimen Performing Laboratory GE RIS Narrative FINAL REPORT Chest, two views HISTORY: Surgery COMPARISON: None. DISCUSSION: Lungs are clear without focal consolidation. Cardiomediastinal silhouette is unremarkable. Tortuosity and ectasia of the thoracic aorta. No acute osseous abnormality. No pleural effusion or pneumothorax. Visualized portions of the upper abdomen are unremarkable. IMPRESSION: No acute cardiopulmonary abnormality. Signed: Gera Hernandez MD Report Verified Date/Time:04/14/2018 14:12:09 Reading Location: [address] Radiology Reading Room Procedure Note Interface, External Ris In - 04/14/2018 2:14 PM CDT FINAL REPORT Chest, two views HISTORY: Surgery COMPARISON: None. DISCUSSION: Lungs are clear without focal consolidation. Cardiomediastinal silhouette is unremarkable. Tortuosity and ectasia of the thoracic aorta. No acute osseous abnormality. No pleural effusion or pneumothorax. Visualized portions of the upper abdomen are unremarkable. IMPRESSION: No acute cardiopulmonary abnormality. Signed: Gera Hernandez MD Report Verified Date/Time: 04/14/2018 14:12:09 Reading Location: [address] Radiology Reading Room Urinalysis w/Microscopic (04/14/2018 1:18 PM) Component Value Ref Range Color, UA Yellow Clarity, UA Clear Specific [place], UA 1.010 1.001 - 1.035 pH, UA 6.5 5.0 - 8.0 Protein, UA 20 mg/dL (A) Negative Glucose, UA Negative Negative Ketones, UA Negative Negative Bilirubin, UA Negative Negative Blood, UA Negative Negative Nitrite, UA Negative Negative Leukocytes, UA Negative Negative Urobilinogen, UA 0.2 0.2 - 1.0 mg/dL RBC, UA <1 /HPF WBC, UA <1 /HPF Mucus Rare Squam Epithel, UA <1 /HPF Hyaline Casts, UA 4 /LPF Specimen Source Specimen Performing Laboratory Urine [facility] [address] [address] Type and screen, automated (04/14/2018 1:17 PM) Component Value Ref Range ABO/RH AUTOMATED (BEAKER) A POSITIVE Ab Scrn NEGATIVE Specimen Performing Laboratory [address] [address] HIV-1 Antigen with HIV-1/2 Antibody (04/14/2018 1:17 PM) Component Value Ref Range HIV-1 Antigen with HIV 1&2 Antibody Nonreactive Nonreactive Specimen Performing Laboratory [address] [address] Hepatitis B Panel (04/14/2018 1:17 PM) Component Value Ref Range Hep B Core Total Ab Nonreactive Nonreactive Hep B S Ab 63.1 (H) <8.0 mIU/mL hepatitis B Surface Ag Nonreactive Nonreactive Specimen Performing Laboratory [address] [address] Hepatitis C antibody (04/14/2018 1:17 PM) Component Value Ref Range Hepatitis C Ab Nonreactive Nonreactive Specimen Performing Laboratory [address] [address] Reticulocyte count (04/14/2018 1:17 PM) Component Value Ref Range % Retic 1.0 0.5 - 1.7 % Specimen Performing Laboratory [address] [address] Lipase (04/14/2018 1:17 PM) Component Value Ref Range Lipase 10 8 - 78 U/L Specimen Performing Laboratory [address] [address] Lactate dehydrogenase (LDH) (04/14/2018 1:17 PM) Component Value Ref Range LDH 238 (H) 125 - 220 U/L Specimen Performing Laboratory [address] [address] Amylase (04/14/2018 1:17 PM) Component Value Ref Range Amylase 40 25 - 125 U/L Specimen Performing Laboratory [address] [address] Hepatic function panel (04/14/2018 1:17 PM) Component Value Ref Range Protein, Total 7.1 6.0 - 8.3 gm/dL Albumin 4.0 3.5 - 5.0 g/dL Total Bilirubin 0.4 0.2 - 1.2 mg/dL Bilirubin, Direct 0.2 0.1 - 0.5 mg/dL Alkaline Phosphatase 135 40 - 150 U/L AST 22 5 - 34 U/L ALT 22 6 - 55 U/L Specimen Performing Laboratory Blood [facility] [address] [address] ECG 12 lead (04/14/2018 1:13 PM) Specimen Performing Laboratory GE MUSE Narrative Ventricular Rate 56 BPM Atrial Rate 56 BPM P-R Interval 218 ms QRS Duration 70 ms Q-T Interval 428 ms QTC Calculation(Bazett) 413 ms P Lavelle 55 degrees R Lavelle -26 degrees T Lavelle 48 degrees Sinus bradycardia with 1st degree A-V block with Premature atrial complexes Voltage criteria for left ventricular hypertrophy Inferior infarct , age undetermined Anterolateral infarct , age undetermined Abnormal ECG No previous ECGs available Confirmed by MD JOHNSON JOSEPH P ([id number]) on 04/15/2018 5:58:45 AM Procedure Note Interface, External Ris In - 04/15/2018 5:58 AM CDT Ventricular Rate 56 BPM Atrial Rate 56 BPM P-R Interval 218 ms QRS Duration 70 ms Q-T Interval 428 ms QTC Calculation(Bazett) 413 ms P Lavelle 55 degrees R Lavelle -26 degrees T Lavelle 48 degrees Sinus bradycardia with 1st degree A-V block with Premature atrial complexes Voltage criteria for left ventricular hypertrophy Inferior infarct , age undetermined Anterolateral infarct , age undetermined Abnormal ECG No previous ECGs available Confirmed by MD JOHNSON JOSEPH P ([id number]) on 04/15/2018 5:58:45 AM after 07/09/2017
[2018-07-10] MEDS ORDERED: cloNIDine HCl 0.1 MG TAB ONE (21:42)
[2018-07-10 22:19] LABS: Absolute Monocytes 0.7 K/uL (0.1-1.3); Absolute Neutrophil 5.2 K/uL (1.8-8.0); Basophils % 0.8 % (0-1.3); Eosinophils % 1.9 % (0-4.4); Hematocrit 39.2 % (36.0-45.0); MCH 30.5 pg (27.0-35.0); MCV 91.1 fL (80-100); MPV 8.9 fL (7.6-11.3)
[2018-07-10 22:28] LABS: Protime INR 1.01
[2018-07-10 22:44] LABS: BUN Blood Urea Nitrogen 16 mg/dL (7-18); Bicarbonate 27 mmol/L (21-32); Glucose Level 167 mg/dL (74-106); Sodium Level 143 mmol/L (136-145); Troponin I < 0.02 ng/mL (0.0-0.045)
--- NOTE | 2018-07-10 23:31 | ER ---
Nurse's Notes [facility] Name: Syl Sheikh Age: 78 yrs Sex: Female : 1940 Arrival Date: 07/10/2018 Time: 21:20 Bed 3 Private MD: Diagnosis: Hypertension;Headache Presentation: 07/10 21:21 Presenting complaint: EMS states: "not feeling right" pt with hypertension, c/o ak1 headache. EMS FSBG 173. 220/100. Transition of care: patient was not received from another setting of care. Onset of symptoms was July 10, 2018. Risk Assessment: Do you want to hurt yourself or someone else? Patient reports no desire to harm self or others. Initial Sepsis Screen: Does the patient meet any 2 criteria? No. Patient's initial sepsis screen is negative. Does the patient have a suspected source of infection? No. Patient's initial sepsis screen is negative. Care prior to arrival: 20g IV right AC. 21:21 Acuity: MP 3 ak1 21:21 Method Of Arrival: EMS: [facility] ak1 Triage Assessment: 21:27 General: Appears in no apparent distress. Behavior is calm, cooperative. Pain: ak1 Complains of pain in headache. Historical: - Allergies: 21:27 Lisinopril; ak1 21:27 Hydrocodone-Acetaminophen; ak1 21:27 butorphanol tartrate; ak1 21:27 statin drugs; ak1 - Home Meds: 21:27 Coreg Oral [Active]; Alprazolam Oral [Active]; paroxetine oral oral [Active]; ak1 - PMHx: 21:27 CVA; TIA; Hypertension; ak1 - PSHx: 21:27 AAA repair 03/2018; ak1 - Immunization history:: Adult Immunizations unknown. - Social history:: Smoking status: Patient/guardian denies using tobacco. - Ebola Screening: : No symptoms or risks identified at this time. - Family history:: not pertinent. - Hospitalizations: : No recent hospitalization is reported. Screenin:28 Abuse screen: Denies threats or abuse. Denies injuries from another. Nutritional ak1 screening: No deficits noted. Tuberculosis screening: No symptoms or risk factors identified. Fall Risk Gait- Impaired (20 pts.). Assessment: 21:28 General: Appears in no apparent distress. uncomfortable, Behavior is calm, cooperative, jb4 appropriate for age. Pain: Complains of pain in headache Pain does not radiate. Pain currently is 3 out of 10 on a pain scale. Neuro: Level of Consciousness is awake, alert, obeys commands, Oriented to person, place, time, situation. Cardiovascular: Heart tones S1 S2 Patient's skin is warm and dry. Rhythm is sinus rhythm. Respiratory: Airway is patent Respiratory effort is even, unlabored, Respiratory pattern is regular, symmetrical, Breath sounds are clear bilaterally. GI: No signs and/or symptoms were reported involving the gastrointestinal system. : No signs and/or symptoms were reported regarding the genitourinary system. EENT: No signs and/or symptoms were reported regarding the EENT system. Derm: Skin is intact, Skin is pink, warm \\T\\ dry. Musculoskeletal: Circulation, motion, and sensation intact. 22:30 Reassessment: Patient appears in no apparent distress at this time. Patient and/or jb4 family updated on plan of care and expected duration. Pain level reassessed. Patient is alert, oriented x 3, equal unlabored respirations, skin warm/dry/pink. 23:43 Reassessment: Patient appears in no apparent distress at this time. Patient and/or jb4 family updated on plan of care and expected duration. Pain level reassessed. Patient is alert, oriented x 3, equal unlabored respirations, skin warm/dry/pink. Pt is up for discharge. Waiting for a ride. Vital Signs: 21:21 BP 213 / 103; Pulse 71; Resp 18; Temp 98.6(O); Pulse Ox 99% on R/A; Weight 65.77 kg ak1 (R); Height 5 ft. 7 in. (170.18 cm) (R); Pain 2/10; 22:37 BP 138 / 85; Pulse 56; Resp 14; Pulse Ox 97% on R/A; ak1 21:21 Body Mass Index 22.71 (65.77 kg, 170.18 cm) ak1 ED Course: 21:20 Patient arrived in ED. ak1 21:21 Arm band placed on Patient placed in an exam room, on a stretcher, on conveyor monitor, ak1 on pulse oximetry, Patient notified of wait time. 21:24 Triage completed. ak1 21:25 Gregg Silvestre MD is Attending Physician. rn 21:27 Raymundo Salazar, RN is Primary Nurse. jb4 21:28 Patient has correct armband on for positive identification. Bed in low position. Call ak1 light in reach. Side rails up X2. conveyor monitor on. Pulse ox on. NIBP on. 21:28 Maintain EMS IV. Dressing intact. Site clean \\T\\ dry. Gauge \\T\\ site: 20g right AC. ak 1 22:[address] via stretcher. nj 22:54 CT completed. Patient tolerated procedure well. Patient moved back from CT. nj 22:55 Head Brain Wo Cont In Process Unspecified. EDMS 07/11 00:11 No provider procedures requiring assistance completed. IV discontinued, intact, ak1 bleeding controlled, No redness/swelling at site. Pressure dressing applied. Administered Medications: 07/10 21:45 Drug: cloNIDine 0.2 mg Route: PO; jb4 07/11 00:18 Follow up: Response: No adverse reaction ak1 Outcome: 07/10 23:30 Discharge ordered by . rn 07/11 00:11 Discharged to home ambulatory, with family. ak1 Condition: good Discharge instructions given to patient, Instructed on discharge instructions, follow up and referral plans. Demonstrated understanding of instructions, follow-up care. 00:11 Patient left the ED. ak1 Signatures: Dispatcher [employer] [facility] Gregg Silvestre MD MD rn Krenek, Amber RN RN ak1 Raymundo Salazar, RN RN jb4 Jeff Gutierrez
--- NOTE | 2018-07-10 23:31 | EDPHYS ---
Physician Documentation [facility] Name: Syl Sheikh Age: 78 yrs Sex: Female : 1940 Arrival Date: 07/10/2018 Time: 21:20 Bed 3 Private MD: ED Physician Gregg Silvestre HPI: 07/10 23:15 This 78 yrs old Female presents to ER via EMS with complaints of High Blood rn Pressure. 23:15 The patient has elevated blood pressure and discovered this at home. Onset: The rn symptoms/episode began/occurred today. Modifying factors:. Severity of symptoms: At its worst the blood pressure was moderate, in the emergency department the blood pressure is unchanged. The patient has experienced similar episodes in the past. REports noticed high blood pressure today, reports mild headache, not worst headache of her life, used to have migraines worse than this, no head trauma, reports "pressure in head". NO vomiting/vision changes/chest pain/sob. . Historical: - Allergies: 21:27 Lisinopril; ak1 21:27 Hydrocodone-Acetaminophen; ak1 21:27 butorphanol tartrate; ak1 21:27 statin drugs; ak1 - Home Meds: 21:27 Coreg Oral [Active]; Alprazolam Oral [Active]; paroxetine oral oral [Active]; ak1 - PMHx: 21:27 CVA; TIA; Hypertension; ak1 - PSHx: 21:27 AAA repair 03/2018; ak1 - Immunization history:: Adult Immunizations unknown. - Social history:: Smoking status: Patient/guardian denies using tobacco. - Ebola Screening: : No symptoms or risks identified at this time. - Family history:: not pertinent. - Hospitalizations: : No recent hospitalization is reported. ROS: 23:28 Constitutional: Negative for fever, chills, and weight loss, Eyes: Negative for injury, rn pain, redness, and discharge, Neck: Negative for injury, pain, and swelling, Cardiovascular: Negative for chest pain, palpitations, and edema, Respiratory: Negative for shortness of breath, cough, wheezing, and pleuritic chest pain, Abdomen/GI: Negative for abdominal pain, nausea, vomiting, diarrhea, and constipation, Back: Negative for injury and pain, MS/Extremity: Negative for injury and deformity, Skin: Negative for injury, rash, and discoloration, Neuro: Negative for weakness, numbness, tingling, and seizure. Exam: 23:28 Constitutional: This is a well developed, well nourished patient who is awake, alert, rn and in no acute distress. Head/Face: Normocephalic, atraumatic. Eyes: Pupils equal round and reactive to light, extra-ocular motions intact. Lids and lashes normal. Conjunctiva and sclera are non-icteric and not injected. Cornea within normal limits. Periorbital areas with no swelling, redness, or edema. Neck: Trachea midline, no thyromegaly or masses palpated, and no cervical lymphadenopathy. Supple, full range of motion without nuchal rigidity, or vertebral point tenderness. No Meningismus. Cardiovascular: Regular rate and rhythm with a normal S1 and S2. No gallops, murmurs, or rubs. Normal PMI, no JVD. No pulse deficits. Respiratory: Lungs have equal breath sounds bilaterally, clear to auscultation and percussion. No rales, rhonchi or wheezes noted. No increased work of breathing, no retractions or nasal flaring. Abdomen/GI: Soft, non-tender, with normal bowel sounds. No distension or tympany. No guarding or rebound. No evidence of tenderness throughout. MS/ Extremity: Pulses equal, no cyanosis. Neurovascular intact. Full, normal range of motion. Equal circumference. Neuro: Awake and alert, GCS 15, oriented to person, place, time, and situation. Cranial nerves II-XII grossly intact. Motor strength 5/5 in all extremities. Sensory grossly intact. Cerebellar exam normal Vital Signs: 21:21 BP 213 / 103; Pulse 71; Resp 18; Temp 98.6(O); Pulse Ox 99% on R/A; Weight 65.77 kg ak1 (R); Height 5 ft. 7 in. (170.18 cm) (R); Pain 2/10; 22:37 BP 138 / 85; Pulse 56; Resp 14; Pulse Ox 97% on R/A; ak1 21:21 Body Mass Index 22.71 (65.77 kg, 170.18 cm) ak1 MDM: 21:25 Patient medically screened. rn 23:28 Differential diagnosis: hypertensive crisis, Malignant HTN. Data reviewed: vital signs, rn nurses notes, lab test result(s), EKG, radiologic studies, CT scan, and as a result, I will discharge patient. Counseling: I had a detailed discussion with the patient and/or guardian regarding: the historical points, exam findings, and any diagnostic results supporting the discharge/admit diagnosis, lab results, radiology results, the need for outpatient follow up, to return to the emergency department if symptoms worsen or persist or if there are any questions or concerns that arise at home. Response to treatment: the patient's symptoms have markedly improved after treatment, the patient's condition has returned to base line, the patient is now symptom free, and as a result, I will discharge patient. Special discussion: I discussed with the patient/guardian in detail that at this point there is no indication for admission to the hospital. It is understood, however, that if the symptoms persist or worsen the patient needs to return immediately for re-evaluation. Special discussion: Based on the history and exam findings, there is no indication for further emergent testing or inpatient evaluation. I discussed with the patient/guardian the need to see the primary care provider for further evaluation of the symptoms. ED course: Patient improved, feels much better, neg ct head, no evidence of renal or cardiac problems. . 07/10 22:08 Order name: Basic Metabolic Panel; Complete Time: 23:01 EDMS 07/10 21:26 Order name: EKG; Complete Time: 22:54 rn 07/10 22:08 Order name: Troponin I; Complete Time: 23:01 EDMS 07/10 22:08 Order name: CBC with Automated Diff; Complete Time: 23:01 EDMS 07/10 22:08 Order name: Protime (+INR); Complete Time: 23:01 EDMS 07/10 22:08 Order name: PTT, Activated Partial Thromb; Complete Time: 23:01 EDMS 07/10 22:44 Order name: Head Brain Wo Cont EDMS 07/10 21:26 Order name: IV Start; Complete Time: 21:30 rn 07/10 21: Order name: EKG - Nurse/Tech; Complete Time: 21:30 rn Administered Medications: 21:45 Drug: cloNIDine 0.2 mg Route: PO; jb4 07/11 00:18 Follow up: Response: No adverse reaction ak1 Disposition: 07/10/18 23:30 Discharged to Home. Impression: Hypertension, Headache. - Condition is Stable. - Discharge Instructions: General Headache Without Cause, Hypertension. - Medication Reconciliation Form, Thank You Letter, Antibiotic Education, Prescription Opioid Use form. - Follow up: Private Physician; When: As needed; Reason: Recheck today's complaints, Re-evaluation by your physician. - Problem is new. - Symptoms have improved. Signatures: Dispatcher [employer] [facility] Gregg Silvestre MD MD rn Krenek, Amber, RN RN ak1 Raymundo Salazar RN RN jb4 Corrections: (The following items were deleted from the chart) 07/10 22:57 22:54 Head Brain Wo Cont+CT.RAD.BRZ ordered. EDNY EDNY : 22:54 CBC+H.LAB.BRZ ordered. [facility] EDNY : 22:54 BASIC METABOLIC PANEL+C.LAB.BRZ ordered. EDNY EDNY : 22:54 PROTIME (+INR)+COAG.LAB.BRZ ordered. EDNY EDNY : 22:54 PTT, ACTIVATED+COAG.LAB.BRZ ordered. EDNY EDNY : 22:54 TROPONIN (EMERG DEPT USE ONLY)+C.LAB.BRZ ordered. [facility] 07/11 00:11 07/10 23:30 07/10/2018 23:30 Discharged to Home. Impression: Hypertension; Headache. ak1 Condition is Stable. Forms are Medication Reconciliation Form, Thank You Letter, Antibiotic Education, Prescription Opioid Use. Follow up: Private Physician; When: As needed; Reason: Recheck today's complaints, Re-evaluation by your physician. Problem is new. Symptoms have improved. rn
[2018-07-11 00:54] VITALS: TEMP 98.6
[2018-07-11 00:56] VITALS: BP 138/85; O2SAT 97
--- NOTE | 2018-07-11 07:33 | RAD REPORT ---
EXAM DESCRIPTION: CT - Head Brain Wo Cont - 07/11/2018 6:05 am CLINICAL HISTORY: Headache A preliminary report was provided at the time of the study and reviewed prior to final report. COMPARISON: CT head July 04 TECHNIQUE: Axial 5 mm thick images of the head were obtained without IV contrast. All CT scans are performed using dose optimization technique as appropriate and may include automated exposure control or mA/KV adjustment according to patient size. FINDINGS: No intracranial hemorrhage, mass, edema or shift of mid-line structures. No acute infarcti on changes seen. Patient has moderate atrophy and advanced chronic ischemic pattern similar over the short interval. Ventricles remain in proportion to volume loss. Arterial calcifications are present. Mastoid air cells and visualized portions of the paranasal sinuses are clear. No acute bony findings. IMPRESSION: Negative non-contrast CT head examination for acute finding Atrophy and advanced chronic ischemic change similar to July 04 study
--- NOTE | 2018-07-11 09:02 | EKG ---
Test Date: 2018-07-10 Test Time: 21:24:08 [place]: MANPREET MEASUREMENT RESULTS: Intervals: Rate: 66 UT: 194 QRSD: 76 QT: 398 QTc: 417 [place]: P: 41 UT: 194 QRS: -27 T: 56 INTERPRETIVE STATEMENTS: Normal sinus rhythm Minimal voltage criteria for LVH, may be normal variant Inferior infarct, age undetermined Anterior infarct, age undetermined Abnormal ECG Compared to ECG 10/16/2015 21:45:06 Left ventricular hypertrophy now present Sinus bradycardia no longer present First degree AV block no longer present Myocardial infarct finding still present Electronically Signed On 07-11-18 09:01:35 CDT by Pawel Michel
== END 2018-07-11 00:11 | disposition home or self-care (01) ==
LOC: ER 21:16
DX: I10 Essential (primary) hypertension (principal); Z86.73 Personal history of transient ischemic attack (TIA), and cerebral infarction without residual deficits; Z88.5 Allergy status to narcotic agent; Z88.8 Allergy status to other drugs, medicaments and biological substances
CPT/HCPCS: 36415; 70450; 80048; 84484; 85025; 85610; 85730; 93005; 99285

== ENCOUNTER 2018-07-17 16:07 | Observation (INO) | payer OTHER ==
--- OUTSIDE RECORDS SUMMARY | 2018-07-17 16:10 | XMS REPORT ---
:1940 Author Organization [facility] Address [address] [place] [address] Care Team Providers Name Role Phone DOMINIC [...] ID: VIEW, NON DEPT EVARShould this be [phone] Chest one view performed at the INDICATION: [...] skin fold is suspected. Signed: Dena Talavera MDReport Verified Date/Time: 04/19/2018 10:16:05 Reading Location: [facility] Radiology Reading Room PHORUS 2018-04-19 05:21:00 Test Item Value Reference Range Comments PHOSPHORUS (BEAKER) (test uhnw=543) 4.0 mg/dL 2.3-4.7 [id number] 05:21:00 Test Item Value Reference Range Comments MAGNESIUM (BEAKER) (test hkak=555) 2.2 mg/dL 1.6-2.6 BASIC METABOLIC [id number] 05:21:00 Test Item Value Reference Range Comments SODIUM (BEAKER) (test 141 meq/L 136-145 jxeq=493) POTASSIUM (BEAKER) (test 3.6 meq/L 3.5-5.1 iddi=626) CHLORIDE (BEAKER) (test 106 meq/L 98-107 hpiu=492) CO2 (BEAKER) (test 28 meq/L 22-29 nwnn=835) BLOOD UREA NITROGEN 20 mg/dL 7-21 (BEAKER) (test taei=805) CREATININE (BEAKER) (test 0.87 mg/dL 0.57-1.25 mlrt=060) GLUCOSE RANDOM (BEAKER) 122 mg/dL 70-105 (test clhe=547) CALCIUM (BEAKER) (test 9.0 mg/dL 8.4-10.2 ybvy=088) EGFR (BEAKER) (test 63 mL/min/1.73 sq m ESTIMATED GFR IS NOT kwwn=1311) ACCURATE CREATININE CLEARANCE IN PREDICTING GLOMERULAR FILTRATION RATE. ESTIMATED GFR IS NOT APPLICABLE FOR DIALYSIS PATIENTS. [id number] 04:58:00 Test Item Value Reference Range Comments PARTIAL THROMBOPLASTIN TIME (BEAKER) (test 36.6 seconds 22.5-36.0 xdxk=441) PROTHROMBIN TIME/[id number] 04:57:00 Test Item Value Reference Range Comments PROTIME (BEAKER) (test fbms=546) 15.9 seconds 11.7-14.7 INR (BEAKER) (test kdat=907) 1.3 <=5.9 RECOMMENDED COUMADIN/WARFARIN INR THERAPY RANGESSTANDARD DOSE: 2.0 - 3.0 Includes: PROPHYLAXIS forvenous thrombosis, systemic embolization; TREATMENT for venous thrombosis and/or pulmonary embolus.HIGH RISK: Target INR is 2.5-3.5 for patients with mechanical heart valves.CBC (HEMOGRAM ONLY)2018-04-19 04:47:00 Test Item Value Reference Range Comments WHITE BLOOD CELL COUNT (BEAKER) (test kekr=489) 9.5 K/ L 3.5-10.5 RED BLOOD CELL COUNT (BEAKER) (test htqk=078) 3.64 M/ L 3.93-5.22 HEMOGLOBIN (BEAKER) (test dxuj=736) 10.6 GM/DL 11.2-15.7 HEMATOCRIT (BEAKER) (test yeop=522) 33.8 % 34.1-44.9 MEAN CORPUSCULAR VOLUME (BEAKER) (test yzov=458) 92.9 fL 79.4-94.8 MEAN CORPUSCULAR HEMOGLOBIN (BEAKER) (test 29.1 pg 25.6-32.2 sxql=078) MEAN CORPUSCULAR HEMOGLOBIN CONC (BEAKER) (test 31.4 GM/DL 32.2-35.5 okbk=295) RED CELL DISTRIBUTION WIDTH (BEAKER) (test 14.1 % 11.7-14.4 gewu=545) PLATELET COUNT (BEAKER) (test cnyu=950) 232 K/CU MM 150-450 MEAN PLATELET VOLUME (BEAKER) (test tmac=207) 10.9 fL 9.4-12.3 NUCLEATED RED BLOOD CELLS (BEAKER) (test 0 /100 WBC 0-0 vpgb=059) RAD, CHEST, 1 VIEW, NON [id number] 08:00:00Reason for exam:->S/P EVARShould this be performed at the bedside?->YesFINAL REPORT Chest one view INDICATION: EVAR COMPARISON: 04/17/2018 IMPRESSION: The aorta remains ectatic/tortuous. There is stable cardiomegaly. There are coarsened interstitial markings. Faint basilar opacities suggest atelectasis. No new consolidation, significant pleural effusion, or pneumothorax is seen. Abdominal aortic stent graft is present. The bones appear unchanged. Signed: Dena Talavera MDReport Verified Date/Time: 04/18/2018 08:00:53 Reading Location: [facility] Radiology Reading Room [id number] 05:25:00 Test Item Value Reference Range Comments PHOSPHORUS (BEAKER) (test eblg=835) 3.6 mg/dL 2.3-4.7 [id number] 05:25:00 Test Item Value Reference Range Comments MAGNESIUM (BEAKER) (test skoy=652) 2.2 mg/dL 1.6-2.6 BASIC METABOLIC [id number] 05:25:00 Test Item Value Reference Range Comments SODIUM (BEAKER) (test 139 meq/L 136-145 wutm=551) POTASSIUM (BEAKER) (test 3.2 meq/L 3.5-5.1 cjss=346) CHLORIDE (BEAKER) (test 103 meq/L 98-107 idxn=824) CO2 (BEAKER) (test 25 meq/L 22-29 dphb=223) BLOOD UREA NITROGEN 17 mg/dL 7-21 (BEAKER) (test euoj=407) CREATININE (BEAKER) (test 0.86 mg/dL 0.57-1.25 nlyz=053) GLUCOSE RANDOM (BEAKER) 150 mg/dL 70-105 (test vvob=445) CALCIUM (BEAKER) (test 9.6 mg/dL 8.4-10.2 shba=864) EGFR (BEAKER) (test 64 mL/min/1.73 sq m ESTIMATED GFR IS NOT jqlo=6486) ACCURATE CREATININE CLEARANCE IN PREDICTING GLOMERULAR FILTRATION RATE. ESTIMATED GFR IS NOT APPLICABLE FOR DIALYSIS PATIENTS. [id number] 05:06:00 Test Item Value Reference Range Comments PARTIAL THROMBOPLASTIN TIME (BEAKER) (test 36.5 seconds 22.5-36.0 scvj=116) PROTHROMBIN TIME/[id number] 05:05:00 Test Item Value Reference Range Comments PROTIME (BEAKER) (test yhzq=053) 16.5 seconds 11.7-14.7 INR (BEAKER) (test msvq=802) 1.3 <=5.9 RECOMMENDED COUMADIN/WARFARIN INR THERAPY RANGESSTANDARD DOSE: 2.0 - 3.0 Includes: PROPHYLAXIS forvenous thrombosis, systemic embolization; TREATMENT for venous thrombosis and/or pulmonary embolus.HIGH RISK: Target INR is 2.5-3.5 for patients with mechanical heart valves.CBC (HEMOGRAM ONLY)2018-04-18 04:52:00 Test Item Value Reference Range Comments WHITE BLOOD CELL COUNT (BEAKER) (test kyug=308) 11.2 K/ L 3.5-10.5 RED BLOOD CELL COUNT (BEAKER) (test mmdi=633) 3.90 M/ L 3.93-5.22 HEMOGLOBIN (BEAKER) (test tfey=483) 11.3 GM/DL 11.2-15.7 HEMATOCRIT (BEAKER) (test dhrj=638) 35.7 % 34.1-44.9 MEAN CORPUSCULAR VOLUME (BEAKER) (test vwvs=184) 91.5 fL 79.4-94.8 MEAN CORPUSCULAR HEMOGLOBIN (BEAKER) (test 29.0 pg 25.6-32.2 gmlk=974) MEAN CORPUSCULAR HEMOGLOBIN CONC (BEAKER) (test 31.7 GM/DL 32.2-35.5 arav=715) RED CELL DISTRIBUTION WIDTH (BEAKER) (test 14.2 % 11.7-14.4 ogip=149) PLATELET COUNT (BEAKER) (test crbk=649) 208 K/CU MM 150-450 MEAN PLATELET VOLUME (BEAKER) (test vlqy=994) 10.6 fL 9.4-12.3 NUCLEATED RED BLOOD CELLS (BEAKER) (test 0 /100 WBC 0-0 ncst=402) RAD, CHEST, 1 VIEW, NON [id number] 10:31:00Reason for exam:->S/P EVARShould this be performed at the bedside?->YesFINAL REPORT Chest, one view. HISTORY: Status post aortic repair COMPARISON: 2017 IMPRESSION: No significant change. Unchanged tortuosity and ectasia of the thoracic aorta.Mild interstitial edema. No large pleural effusion or pneumothorax. Signed: Gera Hernandez Verified Date/Time: 04/17/2018 10: 31:41 Reading Location: [facility] C013Y CT Body Reading Room [id number] 06: 43:00 Test Item Value Reference Range Comments PHOSPHORUS (BEAKER) (test sknc=242) 3.3 mg/dL 2.3-4.7 [id number] 06:43:00 Test Item Value Reference Range Comments MAGNESIUM (BEAKER) (test opym=572) 2.0 mg/dL 1.6-2.6 [id number] 06:23:00 Test Item Value Reference Range Comments PARTIAL THROMBOPLASTIN TIME (BEAKER) (test 36.4 seconds 22.5-36.0 gfzs=040) PROTHROMBIN TIME/[id number] 06:22:00 Test Item Value Reference Range Comments PROTIME (BEAKER) (test rtol=795) 17.3 seconds 11.7-14.7 INR (BEAKER) (test ewnm=886) 1.4 <=5.9 RECOMMENDED COUMADIN/WARFARIN INR THERAPY RANGESSTANDARD DOSE: 2.0 - 3.0 Includes: PROPHYLAXIS forvenous thrombosis, systemic embolization; TREATMENT for venous thrombosis and/or pulmonary embolus.HIGH RISK: Target INR is 2.5-3.5 for patients with mechanical heart valves.CBC (HEMOGRAM ONLY)2018-04-17 06:13:00 Test Item Value Reference Range Comments WHITE BLOOD CELL COUNT (BEAKER) (test tcqv=854) 13.2 K/ L 3.5-10.5 RED BLOOD CELL COUNT (BEAKER) (test dgsu=433) 3.84 M/ L 3.93-5.22 HEMOGLOBIN (BEAKER) (test liwa=784) 11.5 GM/DL 11.2-15.7 HEMATOCRIT (BEAKER) (test wzbl=900) 34.9 % 34.1-44.9 MEAN CORPUSCULAR VOLUME (BEAKER) (test bopn=449) 90.9 fL 79.4-94.8 MEAN CORPUSCULAR HEMOGLOBIN (BEAKER) (test 29.9 pg 25.6-32.2 jepa=520) MEAN CORPUSCULAR HEMOGLOBIN CONC (BEAKER) (test 33.0 GM/DL 32.2-35.5 aovj=893) RED CELL DISTRIBUTION WIDTH (BEAKER) (test 14.0 % 11.7-14.4 urfk=215) PLATELET COUNT (BEAKER) (test udtu=516) 201 K/CU MM 150-450 MEAN PLATELET VOLUME (BEAKER) (test iwls=818) 10.6 fL 9.4-12.3 NUCLEATED RED BLOOD CELLS (BEAKER) (test 0 /100 WBC 0-0 zyec=303) RAD, CHEST, 1 VIEW, NON [id number] 09:02:00Reason for exam:->S/P EVARShould this be performed at the bedside?->YesFINAL REPORT Chest, one view. HISTORY: Status post aortic repair COMPARISON: 2017 IMPRESSION: No significant change. Unchanged tortuosity and ectasia of the thoracic aorta.Lungs clear without focal consolidation. No large pleural effusion or pneumothorax. Unchanged right apical pleural thickening. Partially visualized aortic stent graft in the abdominal aorta. Signed: Gera Hernandezeport Verified Date/Time: 04/16/2018 09:02:11 Reading Location: [facility] B1 C013Y CT Body Reading Room [id number] 06:11:00 Test Item Value Reference Range Comments PHOSPHORUS (BEAKER) (test apcl=547) 1.9 mg/dL 2.3-4.7 [id number] 06:11:00 Test Item Value Reference Range Comments MAGNESIUM (BEAKER) (test yjnx=167) 2.0 mg/dL 1.6-2.6 BASIC METABOLIC [id number] 06:11:00 Test Item Value Reference Range Comments SODIUM (BEAKER) (test 137 meq/L 136-145 eefk=974) POTASSIUM (BEAKER) (test 3.2 meq/L 3.5-5.1 kfuu=888) CHLORIDE (BEAKER) (test 104 meq/L 98-107 wakp=355) CO2 (BEAKER) (test 24 meq/L 22-29 huri=875) BLOOD UREA NITROGEN 7 mg/dL 7-21 (BEAKER) (test hunc=578) CREATININE (BEAKER) (test 0.86 mg/dL 0.57-1.25 vrqs=556) GLUCOSE RANDOM (BEAKER) 179 mg/dL 70-105 (test rxrw=734) CALCIUM (BEAKER) (test 9.0 mg/dL 8.4-10.2 fvzb=446) EGFR (BEAKER) (test 64 mL/min/1.73 sq m ESTIMATED GFR IS NOT kfoa=8012) ACCURATE CREATININE CLEARANCE IN PREDICTING GLOMERULAR FILTRATION RATE. ESTIMATED GFR IS NOT APPLICABLE FOR DIALYSIS PATIENTS. [id number] 05:46:00 Test Item Value Reference Range Comments PARTIAL THROMBOPLASTIN TIME (BEAKER) (test 32.0 seconds 22.5-36.0 fpbr=594) PROTHROMBIN TIME/[id number] 05:45:00 Test Item Value Reference Range Comments PROTIME (BEAKER) (test rldt=288) 15.0 seconds 11.7-14.7 INR (BEAKER) (test yjud=615) 1.2 <=5.9 RECOMMENDED COUMADIN/WARFARIN INR THERAPY RANGESSTANDARD DOSE: 2.0 - 3.0 Includes: PROPHYLAXIS forvenous thrombosis, systemic embolization; TREATMENT for venous thrombosis and/or pulmonary embolus.HIGH RISK: Target INR is 2.5-3.5 for patients with mechanical heart valves.CBC (HEMOGRAM ONLY)2018-04-16 05:31:00 Test Item Value Reference Range Comments WHITE BLOOD CELL COUNT (BEAKER) (test hxlv=875) 12.0 K/ L 3.5-10.5 RED BLOOD CELL COUNT (BEAKER) (test sujk=242) 4.19 M/ L 3.93-5.22 HEMOGLOBIN (BEAKER) (test tjri=199) 12.4 GM/DL 11.2-15.7 HEMATOCRIT (BEAKER) (test cjht=674) 38.6 % 34.1-44.9 MEAN CORPUSCULAR VOLUME (BEAKER) (test irqo=760) 92.1 fL 79.4-94.8 MEAN CORPUSCULAR HEMOGLOBIN (BEAKER) (test 29.6 pg 25.6-32.2 jhqw=450) MEAN CORPUSCULAR HEMOGLOBIN CONC (BEAKER) (test 32.1 GM/DL 32.2-35.5 ecps=054) RED CELL DISTRIBUTION WIDTH (BEAKER) (test 14.0 % 11.7-14.4 gkxv=669) PLATELET COUNT (BEAKER) (test bimk=650) 223 K/CU MM 150-450 MEAN PLATELET VOLUME (BEAKER) (test qanb=730) 10.3 fL 9.4-12.3 NUCLEATED RED BLOOD CELLS (BEAKER) (test 0 /100 WBC 0-0 gqwb=356) [id number] 13:56:00 Test Item Value Reference Range Comments ACTIVATED CLOTTING TIME [address] [facility] [address] (BEAKER) (test ggjw=906) [place] [address] RAD, ABDOMEN/KUB, 1 VIEW [id number] 12:39:00Reason for exam:->Postop AAAFINAL REPORT CLINICAL HISTORY: [...] GodwinMDReport Verified Date/Time: 2017 12:39:57 Reading Location: [facility] Radiology Reading Room RAD, CHEST , 1 VIEW, NON [id number] 12:38:00For chest painReason for exam:->post opShould this be performed at the bedside?->YesFINAL REPORT CLINICAL HISTORY: post op TECHNIQUE: 1 view of the chest. COMPARISON: 04/10/2018 IMPRESSION: There are no focal infiltrates or effusions. Cardiomegaly is again seen with tortuosity of the thoracic aorta. Signed: Hardik Godwin MDReport Verified Date/Time: 04/15/201812:38:40 Reading Location: [facility] Radiology Reading Room [id number] 11:51:00 Test Item Value Reference Range Comments PHOSPHORUS (BEAKER) (test nqlx=398) 3.2 mg/dL 2.3-4.7 BASIC METABOLIC [id number] 11:51:00 Test Item Value Reference Range Comments SODIUM (BEAKER) (test 140 meq/L 136-145 fkdj=048) POTASSIUM (BEAKER) (test 3.8 meq/L 3.5-5.1 wrwg=115) CHLORIDE (BEAKER) (test 109 meq/L 98-107 cgiv=824) CO2 (BEAKER) (test 24 meq/L 22-29 lowq=276) BLOOD UREA NITROGEN 12 mg/dL 7-21 (BEAKER) (test zwgf=876) CREATININE (BEAKER) (test 0.77 mg/dL 0.57-1.25 tlag=790) GLUCOSE RANDOM (BEAKER) 176 mg/dL 70-105 (test etsa=613) CALCIUM (BEAKER) (test 9.7 mg/dL 8.4-10.2 bztr=847) EGFR (BEAKER) (test 73 mL/min/1.73 sq m ESTIMATED GFR IS NOT aztb=9331) ACCURATE CREATININE CLEARANCE IN PREDICTING GLOMERULAR FILTRATION RATE. ESTIMATED GFR IS NOT APPLICABLE FOR DIALYSIS PATIENTS. CBC W/PLT COUNT & AUTO [id number] 11:23:00 Test Item Value Reference Range Comments WHITE BLOOD CELL COUNT (BEAKER) (test hqht=887) 12.0 K/ L 3.5-10.5 RED BLOOD CELL COUNT (BEAKER) (test rgpw=788) 3.84 M/ L 3.93-5.22 HEMOGLOBIN (BEAKER) (test ggkd=305) 11.4 GM/DL 11.2-15.7 HEMATOCRIT (BEAKER) (test wfey=070) 35.7 % 34.1-44.9 MEAN CORPUSCULAR VOLUME (BEAKER) (test rzfk=702) 93.0 fL 79.4-94.8 MEAN CORPUSCULAR HEMOGLOBIN (BEAKER) (test 29.7 pg 25.6-32.2 ctkd=389) MEAN CORPUSCULAR HEMOGLOBIN CONC (BEAKER) (test 31.9 GM/DL 32.2-35.5 nxca=083) RED CELL DISTRIBUTION WIDTH (BEAKER) (test 14.1 % 11.7-14.4 jauc=918) PLATELET COUNT (BEAKER) (test jagj=286) 207 K/CU MM 150-450 MEAN PLATELET VOLUME (BEAKER) (test lhla=079) 10.7 fL 9.4-12.3 NUCLEATED RED BLOOD CELLS (BEAKER) (test 0 /100 WBC 0-0 schk=514) NEUTROPHILS RELATIVE PERCENT (BEAKER) (test 77 % tqrv=892) LYMPHOCYTES RELATIVE PERCENT (BEAKER) (test 15 % qxtx=377) MONOCYTES RELATIVE PERCENT (BEAKER) (test 6 % iljy=505) EOSINOPHILS RELATIVE PERCENT (BEAKER) (test 1 % nile=880) BASOPHILS RELATIVE PERCENT (BEAKER) (test 1 % gnqw=210) NEUTROPHILS ABSOLUTE COUNT (BEAKER) (test 9.14 K/ L 1.56-6.13 zuui=300) LYMPHOCYTES ABSOLUTE COUNT (BEAKER) (test 1.78 K/ L 1.18-3.74 ucbz=232) MONOCYTES ABSOLUTE COUNT (BEAKER) (test 0.72 K/ L 0.24-0.36 elsy=884) EOSINOPHILS ABSOLUTE COUNT (BEAKER) (test 0.16 K/ L 0.04-0.36 qhox=283) BASOPHILS ABSOLUTE COUNT (BEAKER) (test 0.06 K/ L 0.01-0.08 etwv=631) IMMATURE GRANULOCYTES-RELATIVE PERCENT (BEAKER) 1 % 0-1 (test hybf=9636) PROTHROMBIN TIME/[id number] 11:22:00 Test Item Value Reference Range Comments PROTIME (BEAKER) (test scus=746) 15.7 seconds 11.7-14.7 INR (BEAKER) (test iwnv=427) 1.3 <=5.9 RECOMMENDED COUMADIN/WARFARIN INR THERAPY RANGESSTANDARD DOSE: 2.0 - 3.0 Includes: PROPHYLAXIS forvenous thrombosis, systemic embolization; TREATMENT for venous thrombosis and/or pulmonary embolus.HIGH RISK: Target INR is 2.5-3.5 for patients with mechanical heart valves.CALCIUM, [id number] 11:06:00 Test Item Value Reference Range Comments CALCIUM IONIZED (BEAKER) (test hqlu=805) 1.25 mmol/L 1.12-1.27 PH, BLOOD (BEAKER) (test ufzs=4555) 7.37 HEPATITIS C [id number] 15:18:00 Test Item Value Reference Range Comments HEPATITIS C ANTIBODY (BEAKER) (test dige=406) Nonreactive Nonreactive HEPATITIS B [id number] 15:18:00 Test Item Value Reference Range Comments HEPATITIS B CORE TOTAL ANTIBODY (BEAKER) (test Nonreactive Nonreactive fawx=902) HEPATITIS B SURFACE ANTIBODY (BEAKER) (test 63.1 mIU/mL <8.0 nxqx=210) HEPATITIS B SURFACE ANTIGEN (2) (BEAKER) (test Nonreactive Nonreactive kyqh=5709) HIV-1 ANTIGEN WITH HIV-1/2 [id number] 15:18:00 Test Item Value Reference Range Comments HIV-1 ANTIGEN WITH HIV 1\T\2 ANTIBODY (2) Nonreactive Nonreactive (BEAKER) (test pvdl=4261) [id number] 15:08:00 Test Item Value Reference Range Comments LIPASE (BEAKER) (test vqbe=549) 10 U/L 8-78 [id number] 15:08:00 Test Item Value Reference Range Comments AMYLASE (BEAKER) (test nqvc=955) 40 U/L 25-125 BASIC METABOLIC [id number] 15:08:00 Test Item Value Reference Range Comments SODIUM (BEAKER) (test 141 meq/L 136-145 isbq=096) POTASSIUM (BEAKER) (test 3.6 meq/L 3.5-5.1 flwj=635) CHLORIDE (BEAKER) (test 104 meq/L 98-107 guht=202) CO2 (BEAKER) (test 27 meq/L 22-29 zblc=412) BLOOD UREA NITROGEN 12 mg/dL 7-21 (BEAKER) (test gntr=149) CREATININE (BEAKER) (test 0.86 mg/dL 0.57-1.25 ysel=817) GLUCOSE RANDOM (BEAKER) 112 mg/dL 70-105 (test zstl=248) CALCIUM (BEAKER) (test 9.8 mg/dL 8.4-10.2 znjr=302) EGFR (BEAKER) (test 64 mL/min/1.73 sq m ESTIMATED GFR IS NOT ojdl=4650) ACCURATE CREATININE CLEARANCE IN PREDICTING GLOMERULAR FILTRATION RATE. ESTIMATED GFR IS NOT APPLICABLE FOR DIALYSIS PATIENTS. HEPATIC FUNCTION [id number] 15:08:00 Test Item Value Reference Range Comments TOTAL PROTEIN (BEAKER) (test dyhc=697) 7.1 gm/dL 6.0-8.3 ALBUMIN (BEAKER) (test nvev=1845) 4.0 g/dL 3.5-5.0 BILIRUBIN TOTAL (BEAKER) (test vutq=746) 0.4 mg/dL 0.2-1.2 BILIRUBIN DIRECT (BEAKER) (test xqlr=739) 0.2 mg/dL 0.1-0.5 ALKALINE PHOSPHATASE (BEAKER) (test xvjd=854) 135 U/L 40-150 AST (SGOT) (BEAKER) (test umor=422) 22 U/L 5-34 ALT (SGPT) (BEAKER) (test vxwq=404) 22 U/L 6-55 LACTATE DEHYDROGENASE (LDH)2018-04-14 15:08:00 Test Item Value Reference Range Comments LACTATE DEHYDROGENASE (BEAKER) (test jeuy=787) 238 U/L 125-220 [id number] 14:47:00 Test Item Value Reference Range Comments PARTIAL THROMBOPLASTIN TIME (BEAKER) (test 31.9 seconds 22.5-36.0 gcjw=397) PROTHROMBIN TIME/[id number] 14:46:00 Test Item Value Reference Range Comments PROTIME (BEAKER) (test wlat=564) 14.1 seconds 11.7-14.7 INR (BEAKER) (test dbyp=910) 1.1 <=5.9 RECOMMENDED COUMADIN/WARFARIN INR THERAPY RANGESSTANDARD DOSE: 2.0 - 3.0 Includes: PROPHYLAXIS forvenous thrombosis, systemic embolization; TREATMENT for venous thrombosis and/or pulmonary embolus.HIGH RISK: Target INR is 2.5-3.5 for patients with mechanical heart valves.RETICULOCYTE [id number] 14:36:00 Test Item Value Reference Range Comments RETICULOCYTE COUNT PCT (BEAKER) (test aner=412) 1.0 % 0.5-1.7 CBC W/PLT COUNT & AUTO [id number] 14:36:00 Test Item Value Reference Range Comments WHITE BLOOD CELL COUNT (BEAKER) (test nuuq=019) 9.3 K/ L 3.5-10.5 RED BLOOD CELL COUNT (BEAKER) (test biyr=126) 4.05 M/ L 3.93-5.22 HEMOGLOBIN (BEAKER) (test xytx=815) 12.2 GM/DL 11.2-15.7 HEMATOCRIT (BEAKER) (test qbbx=556) 37.2 % 34.1-44.9 MEAN CORPUSCULAR VOLUME (BEAKER) (test fmnh=919) 91.9 fL 79.4-94.8 MEAN CORPUSCULAR HEMOGLOBIN (BEAKER) (test 30.1 pg 25.6-32.2 emqg=360) MEAN CORPUSCULAR HEMOGLOBIN CONC (BEAKER) (test 32.8 GM/DL 32.2-35.5 ctlk=886) RED CELL DISTRIBUTION WIDTH (BEAKER) (test 14.2 % 11.7-14.4 awiu=121) PLATELET COUNT (BEAKER) (test qwrt=501) 259 K/CU MM 150-450 MEAN PLATELET VOLUME (BEAKER) (test umnr=744) 11.1 fL 9.4-12.3 NUCLEATED RED BLOOD CELLS (BEAKER) (test 0 /100 WBC 0-0 gaxa=112) NEUTROPHILS RELATIVE PERCENT (BEAKER) (test 70 % tmnj=957) LYMPHOCYTES RELATIVE PERCENT (BEAKER) (test 19 % snxe=379) MONOCYTES RELATIVE PERCENT (BEAKER) (test 8 % vtas=045) EOSINOPHILS RELATIVE PERCENT (BEAKER) (test 2 % htph=898) BASOPHILS RELATIVE PERCENT (BEAKER) (test 1 % ypnk=837) NEUTROPHILS ABSOLUTE COUNT (BEAKER) (test 6.49 K/ L 1.56-6.13 fqav=825) LYMPHOCYTES ABSOLUTE COUNT (BEAKER) (test 1.74 K/ L 1.18-3.74 upir=636) MONOCYTES ABSOLUTE COUNT (BEAKER) (test 0.78 K/ L 0.24-0.36 fpik=478) EOSINOPHILS ABSOLUTE COUNT (BEAKER) (test 0.14 K/ L 0.04-0.36 wijk=483) BASOPHILS ABSOLUTE COUNT (BEAKER) (test 0.07 K/ L 0.01-0.08 cubm=235) IMMATURE GRANULOCYTES-RELATIVE PERCENT (BEAKER) 0 % 0-1 (test zzjn=5567) URINALYSIS W/ [id number] 14:25:00 Test Item Value Reference Range Comments COLOR (BEAKER) (test cdhk=197) Yellow CLARITY (BEAKER) (test pywe=763) Clear SPECIFIC GRAVITY UA (BEAKER) (test vqbv=365) 1.010 1.001-1.035 PH UA (BEAKER) (test jlmi=686) 6.5 5.0-8.0 PROTEIN UA (BEAKER) (test fhfz=651) 20 mg/dL Negative GLUCOSE UA (BEAKER) (test mtar=518) Negative Negative KETONES UA (BEAKER) (test kmyh=558) Negative Negative BILIRUBIN UA (BEAKER) (test sgjb=627) Negative Negative BLOOD UA (BEAKER) (test ogmn=846) Negative Negative NITRITE UA (BEAKER) (test zbes=216) Negative Negative LEUKOCYTE ESTERASE UA (BEAKER) (test wwct=906) Negative Negative UROBILINOGEN UA (BEAKER) (test ktsq=095) 0.2 mg/dL 0.2-1.0 RBC UA (BEAKER) (test unss=251) < /HPF WBC UA (BEAKER) (test twpq=253) < /HPF MUCUS (BEAKER) (test opel=6353) Rare SQUAMOUS EPITHELIAL (BEAKER) (test jbyi=619) < /HPF HYALINE CASTS (BEAKER) (test flvh=692) 4 /LPF SOURCE(BEAKER) (test olup=9627) RAD, CHEST, 2 [id number] 14:12:00Reason for exam:->surgeryFINAL REPORT Chest, two views HISTORY: Surgery COMPARISON: None. DISCUSSION: Lungs are clear without focal consolidation. Cardiomediastinal silhouette is unremarkable. Tortuosityand ectasia of the thoracic aorta. No acute osseous abnormality. No pleural effusion or pneumothorax. Visualized portions of the upper abdomen are unremarkable. IMPRESSION: No acute cardiopulmonary abnormality. Signed: Gera Hernandez MDReport Verified Date/Time: 04/14/2018 14:12:09 Reading Location: [address] Radiology Reading Room 02:12 PM
--- OUTSIDE RECORDS SUMMARY | 2018-07-17 16:10 | XMS REPORT | Clinical Summary ---
:1940 Author Organization [facility] Address [address] [place] [address] Care Team Providers Name Role Phone Wally Soliman Primary Care Provider Raymundo Miller Unavailable Allergies Active Allergy Reactions Severity Noted Date Comments Hydrocodone-Acetaminophen Other (See Comments) 04/13/2018 hyperactivity Lisinopril 04/13/2018 angioedema Butorphanol Tartrate Other (See Comments) 04/14/2018 Hallucinations Fyvpycd-Jrx-Uuh Reductase Other (See Comments) 04/14/2018 Flu like symptoms Inhibitors Medications Medication Sig Dispensed Refills Start Date End Date Status ALPRAZolam (XANAX) Take 0.5 mg 0 Active 0.5 MG tablet by mouth 3 (three) times daily as needed for Anxiety. PARoxetine (PAXIL) Take 10 mg by 0 Active 10 MG tablet mouth every morning. loratadine Take 10 mg by 0 Active (CLARITIN) 10 mg mouth daily. tablet famotidine (PEPCID) Take 20 mg by 0 Active 20 MG tablet mouth daily. triamcinolone 2 sprays by 0 Active (NASACORT) 55 mcg Nasal route nasal inhaler daily. acetaminophen Take 2 30 tablet 0 04/19/2018 Active (TYLENOL) 325 MG tablets (650 tablet mg total) by mouth every 6 (six) hours as needed for Fever. metoprolol Take 50 mg by 0 04/19/2018 Discontinued (TOPROL-XL) 50 MG 24 mouth [...] 5.0 cm in diameter in female 2017 Abdominal aortic aneurysm (AAA) 04/15/2018 At high risk for hemodynamic instability 04/15/2018 Endovascular stent graft for abdominal aortic aneurysm 04/15/2018 Encounters Date Type Specialty Care Team Description 04/15/2018 Surgery Arnaldo Avelar REPAIR,EVAR-ENDOVAS MD Nat CULAR AORTIC ANEURYSM 04/15/2018 - Hospital Encounter Cardiology Arnaldo Avelar At high risk for 04/19/2018 MD Nat hemodynamic instability 04/15/2018 Anesthesia Event ManasaRavi zelaya MD 04/14/2018 Hospital Encounter Arnaldo Avelar MD 04/14/2018 Hospital Encounter Cardiology Arnaldo Avelar MD 04/14/2018 Hospital Encounter Pre-Admission Arnaldo Avelar Thoracic aortic Testing MD Nat aneurysm without rupture (HCC) 04/14/2018 Outside Orders Arnaldo Avelar MD 04/13/2018 Orders Only Arnaldo Avelar Thoracic aortic MD Nat aneurysm without rupture (HCC) (Primary Dx) after 07/16/2017 Social History Tobacco Use Types Packs/Day Years Used Date Former Smoker Smokeless Tobacco: Never Used Alcohol Use Drinks/Week oz/Week Comments No Sex Assigned at Date Recorded Not on file Job Start Date Occupation Industry Not on file Not on file Not on file Travel History Travel Start Travel End No recent travel history available. Last Filed Vital Signs Vital Sign Reading [...] Not on file Implants Implanted Type Area Warp Tying Machine Tender Device Shelf Model / Identifier Expiration Serial / Date Lot Zbigniew Iliac Aaa Leg 13x90 [id number] - [id number] CV Aneurysm Right: COOK:AORTIC 10/13/2020 [id number] / Implanted: Qty: 1 on 04/15/2018 by Arnaldo Avelar MD Groin INTERVENTION / [id number] Closure Sys Perclose Progl 6fr 51285-20 - [id number] Cardiovascular Left: WANG 11/18/2019 [id number] / Implanted: Qty: 1 on 04/15/2018 by Arnaldo Avelar MD Groin LAB: VAS DEV / [id number] Closure Sys Perclose Progl 6fr 25435-54 - [id number] Cardiovascular Left: WANG 01/18/2020 [id number] / Implanted: Qty: 1 on 04/15/2018 by Arnaldo Avelar MD Groin LAB: VAS DEV / [id number] Closure Sys Perclose Progl 6fr 02572-96 - [id number] Cardiovascular Right: WANG 11/18/2019 [id number] / Implanted: Qty: 1 on 04/15/2018 by Arnaldo Avelar MD Groin LAB: VAS DEV / [id number] Closure Sys Perclose Progl 6fr 95588-91 - [id number] Cardiovascular Right: WANG 11/18/2019 [id number] / Implanted: Qty: 1 on 04/15/2018 by Arnaldo Avelar MD Groin LAB: VAS DEV / [id number] Endovascular Graft N/A: [employer] [facility] 02/27/2020 [id number] / Implanted: Qty: 1 on 04/15/2018 by Arnaldo Avelar MD Groin / [id number] Iliac Leg Graft Right: [employer] [facility] 12/28/2020 [id number] / Implanted: Qty: 1 on 04/15/2018 by Arnaldo Avelar MD Groin / Procedures Procedure Name Priority Date/Time Associated Comments Diagnosis VASCULAR DIAGRAM -SCAN 04/21/2018 8:40 AM CDT RHYTHM STRIP - SCAN 04/21/2018 8:40 AM CDT XR CHEST 1 VIEW Routine 04/19/2018 9:48 Results for this PORTABLE/BEDSIDE AM CDT procedure are in the results section. PROTHROMBIN TIME/INR Routine 04/19/2018 4:02 Results for this AM CDT procedure are in the results section. APTT Routine 04/19/2018 4:02 Results for this AM CDT procedure are in the results section. PHOSPHORUS Routine 04/19/2018 4:02 Results for this AM CDT procedure are in the results section. MAGNESIUM Routine 04/19/2018 4:02 Results for this AM CDT procedure are in the results section. BASIC METABOLIC PANEL Routine 04/19/2018 4:02 Results for this (7) AM CDT procedure are in the results section. CBC (HEMOGRAM ONLY) Routine 04/19/2018 4:02 Results for this AM CDT procedure are in the results section. XR CHEST 1 VIEW Routine 04/18/2018 7:55 Results for this PORTABLE/BEDSIDE AM CDT procedure are in the results section. PROTHROMBIN TIME/INR Routine 04/18/2018 4:08 Results for this AM CDT procedure are in the results section. APTT Routine 04/18/2018 4:08 Results for this AM CDT procedure are in the results section. PHOSPHORUS Routine 04/18/2018 4:08 Results for this AM CDT procedure are in the results section. MAGNESIUM Routine 04/18/2018 4:08 Results for this AM CDT procedure are in the results section. BASIC METABOLIC PANEL Routine 04/18/2018 4:08 Results for this (7) AM CDT procedure are in the results section. CBC (HEMOGRAM ONLY) Routine 04/18/2018 4:08 Results for this AM CDT procedure are in the results section. XR CHEST 1 VIEW Routine 04/17/2018 10:16 Results for this PORTABLE/BEDSIDE AM CDT procedure are in the results section. PROTHROMBIN TIME/INR Routine 04/17/2018 5:00 Results for this AM CDT procedure are in the results section. APTT Routine 04/17/2018 5:00 Results for this AM CDT procedure are in the results section. PHOSPHORUS Routine 04/17/2018 5:00 Results for this AM CDT procedure are in the results section. MAGNESIUM Routine 04/17/2018 5:00 Results for this AM CDT procedure are in the results section. CBC (HEMOGRAM ONLY) Routine 04/17/2018 5:00 Results for this AM CDT procedure are in the results section. XR CHEST 1 VIEW Routine 04/16/2018 8:05 Results for this PORTABLE/BEDSIDE AM CDT procedure are in the results section. PROTHROMBIN TIME/INR Routine 04/16/2018 4:49 Results for this AM CDT procedure are in the results section. APTT Routine 04/16/2018 4:49 Results for this AM CDT procedure are in the results section. PHOSPHORUS Routine 04/16/2018 4:49 Results for this AM CDT procedure are in the results section. MAGNESIUM Routine 04/16/2018 4:49 Results for this AM CDT procedure are in the results section. BASIC METABOLIC PANEL Routine 04/16/2018 4:49 Results for this (7) AM CDT procedure are in the results section. CBC (HEMOGRAM ONLY) Routine 04/16/2018 4:49 Results for this AM CDT procedure are in the results section. TRANSFUSION SERVICE 04/15/2018 5:54 REPORT - SCAN PM CDT XR ABDOMEN 1 VIEW STAT 04/15/2018 11:46 Results for this AM CDT procedure are in the results section. XR CHEST 1 VIEW STAT 04/15/2018 11:46 Results for this PORTABLE/BEDSIDE AM CDT procedure are in the results section. CALCIUM, IONIZED STAT 04/15/2018 11:06 Results for this AM CDT procedure are in the results section. CBC W/PLT COUNT & AUTO Routine 04/15/2018 11:05 Results for this DIFFERENTIAL AM CDT procedure are in the results section. PROTHROMBIN TIME/INR Routine 04/15/2018 11:05 Results for this AM CDT procedure are in the results section. CBC W/PLT COUNT & AUTO Routine 04/15/2018 11:05 Results for this DIFFERENTIAL AM CDT procedure are in the results section. BASIC METABOLIC PANEL Routine 04/15/2018 11:05 Results for this (7) AM CDT procedure are in the results section. PHOSPHORUS STAT 04/15/2018 11:05 Results for this AM CDT procedure are in the results section. POCT-ACT Routine 04/15/2018 9:02 Results for this AM CDT procedure are in the results section. REPAIR,EVAR-ENDOVASCUL 04/15/2018 7:30 Abdominal aortic AR AORTIC ANEURYSM AM CDT aneurysm (AAA) without rupture (HCC) XR CHEST 2 VIEWS Routine 04/14/2018 1:39 Thoracic aortic Results for this PM CDT aneurysm without procedure are in rupture (HCC) the results section. URINALYSIS W/ Routine 04/14/2018 1:18 Thoracic aortic Results for this MICROSCOPIC PM CDT aneurysm without procedure are in rupture (HCC) the results section. CBC W/PLT COUNT & AUTO Routine 04/14/2018 1:17 Thoracic aortic Results for this DIFFERENTIAL PM CDT aneurysm without procedure are in rupture (HCC) the results section. TYPE AND SCREEN, Routine 04/14/2018 1:17 Thoracic aortic Results for this AUTOMATED PM CDT aneurysm without procedure are in rupture (HCC) the results section. APTT Routine 04/14/2018 1:17 Thoracic aortic Results for this PM CDT aneurysm without procedure are in rupture (HCC) the results section. RETICULOCYTE COUNT Routine 04/14/2018 1:17 Thoracic aortic Results for this PM CDT aneurysm without procedure are in rupture (HCC) the results section. LIPASE Routine 04/14/2018 1:17 Thoracic aortic Results for this PM CDT aneurysm without procedure are in rupture (HCC) the results section. PROTHROMBIN TIME/INR Routine 04/14/2018 1:17 Thoracic aortic Results for this PM CDT aneurysm without procedure are in rupture (HCC) the results section. HEPATIC FUNCTION PANEL Routine 04/14/2018 1:17 Thoracic aortic Results for this PM CDT aneurysm without procedure are in rupture (HCC) the results section. LACTATE DEHYDROGENASE Routine 04/14/2018 1:17 Thoracic aortic Results for this (LDH) PM CDT aneurysm without procedure are in rupture (HCC) the results section. HIV-1 ANTIGEN WITH Routine 04/14/2018 1:17 Thoracic aortic Results for this HIV-1/2 ANTIBODY PM CDT aneurysm without procedure are in rupture (HCC) the results section. HEPATITIS C ANTIBODY Routine 04/14/2018 1:17 Thoracic aortic Results for this PM CDT aneurysm without procedure are in rupture (HCC) the results section. HEPATITIS B PANEL Routine 04/14/2018 1:17 Thoracic aortic Results for this PM CDT aneurysm without procedure are in rupture (HCC) the results section. CBC W/PLT COUNT & AUTO Routine 04/14/2018 1:17 Thoracic aortic Results for this DIFFERENTIAL PM CDT aneurysm without procedure are in rupture (HCC) the results section. BASIC METABOLIC PANEL Routine 04/14/2018 1:17 Thoracic aortic Results for this (7) PM CDT aneurysm without procedure are in rupture (HCC) the results section. AMYLASE Routine 04/14/2018 1:17 Thoracic aortic Results for this PM CDT aneurysm without procedure are in rupture ([facility]) the results section. ECG 12-LEAD Routine 04/14/2018 1:13 PM CDT Procedure Note - Interface, External Ris In - 04/14/2018 5:19 PM CDT Ventricular Rate 56 BPM Atrial Rate 56 BPM P-R Interval 218 ms QRS Duration 70 ms Q-T Interval 428 ms QTC Calculation(Bazett) 413 ms P Manning 55 degrees R Manning -26 degrees T Manning 48 degrees Sinus bradycardia with 1st degree A-V block with Premature atrial complexes Voltage criteria for left ventricular hypertrophy Inferior infarct , age undetermined Anterolateral infarct , age undetermined Abnormal ECG No previous ECGs available ECG 12-LEAD Routine 04/14/2018 1:13 PM CDT Thoracic aortic Results for this aneurysm without procedure are in the rupture ([facility]) results section. after 07/16/2017 Results VASCULAR DIAGRAM -SCAN (04/21/2018 8:40 AM CDT) Narrative Performed At RHYTHM STRIP - SCAN (04/21/2018 8:40 AM CDT) Narrative Performed At XR chest 1 view portable / bedside (04/19/2018 9:48 AM CDT)Only the most recent of5 resultswithin the time period is included. Narrative Performed At FINAL REPORT [facility] Chest one view INDICATION: EVAR COMPARISON: 04/18/2018 [...] MD Report Verified Date/Time:04/19/2018 10:16:05 Reading Location: [facility] Radiology Reading Room Procedure Note Interface, External [...] Report Verified Date/Time: 04/19/2018 10:16:05 Reading Location: [facility] Radiology Reading Room Performing Organization Address [facility] Phone Number [facility] aPTT (04/19/2018 4:02 AM CDT)Only the most recent of5 resultswithin the time period is included. PTT 36.6 (H) 22.5 - 36.0 seconds [facility] Specimen Blood Performing Organization Address [facility] Phone Number [address] [address] [phone] [place] Prothrombin time/INR (04/19/2018 4:02 AM CDT)Only the most recent of6 resultswithin the time period is included. Protime 15.9 (H) 11.7 - 14.7 seconds [facility] INR 1.3 <=5.9 [facility] Specimen Blood Narrative Performed At [facility] RECOMMENDED COUMADIN/WARFARIN INR THERAPY RANGES STANDARD DOSE: 2.0 - 3.0 Includes: PROPHYLAXIS for venous thrombosis, systemic embolization; TREATMENT for venous thrombosis and/or pulmonary embolus. HIGH RISK: Target INR is 2.5-3.5 for patients with mechanical heart valves. Performing Organization Address [facility] Phone Number [address] [address] [phone] [place] CBC (Hemogram only) (04/19/2018 4:02 AM CDT)Only the most recent of4 resultswithin the time period is included. WBC 9.5 3.5 - 10.5 K/L [facility] RBC 3.64 (L) 3.93 - 5.22 M/L [facility] Hemoglobin 10.6 (L) 11.2 - 15.7 GM/DL [facility] Hematocrit 33.8 (L) 34.1 - 44.9 % [facility] MCV 92.9 79.4 - 94.8 fL [facility] MCH 29.1 25.6 - 32.2 pg [facility] MCHC 31.4 (L) 32.2 - 35.5 GM/DL [facility] RDW 14.1 11.7 - 14.4 % [facility] Platelets 232 150 - 450 K/CU MM [facility] MPV 10.9 9.4 - 12.3 fL [facility] nRBC 0 0 - 0 /100 WBC [facility] Specimen Blood Performing Organization Address City/[facility]/Zipcode Phone Number [address] [address] CENTER Phosphorus (04/19/2018 4:02 AM CDT)Only the most recent of5 resultswithin the time period is included. Phosphorus 4.0 2.3 - 4.7 mg/dL [facility] Specimen Blood Performing Organization Address City/[facility]/Zipcode Phone Number [address] [address] CENTER Magnesium (04/19/2018 4:02 AM CDT)Only the most recent of4 resultswithin the time period is included. Magnesium 2.2 1.6 - 2.6 mg/dL [facility] Specimen Blood Performing Organization Address City/[facility]/Zipcode Phone Number [address] [address] [phone] CENTER Basic Metabolic Panel (04/19/2018 4:02 AM CDT)Only the most recent of5 resultswithin the time period is included. Sodium 141 136 - 145 meq/L [facility] Potassium 3.6 3.5 - 5.1 meq/L [facility] Chloride 106 98 - 107 meq/L [facility] CO2 28 22 - 29 meq/L [facility] BUN 20 7 - 21 mg/dL [facility] Creatinine 0.87 0.57 - 1.25 mg/dL [facility] Glucose 122 (H) 70 - 105 mg/dL [facility] Calcium 9.0 8.4 - 10.2 mg/dL [facility] EGFR 63Comment: ESTIMATED GFR IS mL/min/1.73 sq m [facility] NOT ACCURATE CREATININE [facility] CENTER CLEARANCE IN PREDICTING GLOMERULAR FILTRATION RATE. ESTIMATED GFR IS NOT APPLICABLE FOR DIALYSIS PATIENTS. Specimen Blood Performing Organization Address City/State/Zipcode Phone Number [facility] [address] [place] [address] CENTER TRANSFUSION SERVICE REPORT - SCAN (04/15/2018 5:54 PM CDT) Narrative Performed At XR abdomen / KUB 1 view (04/15/2018 11:46 AM CDT) Narrative Performed At FINAL REPORT [facility] CLINICAL HISTORY: Postop AAA TECHNIQUE: Supine abdomen COMPARISON: None IMPRESSION: The bowel gas pattern is nonspecific. Free air and air-fluid levels are not seen but cannot be definitively excluded on the supine view. There is vicarious excretion of contrast in the bilateral nephroureteral collecting systems. There is an aortobiiliac stent. Signed: Hardik Godwin MD Report Verified Date/Time:04/15/2018 12:39:57 Reading Location: [facility] Radiology Reading Room Procedure Note Interface, External [...] Report Verified Date/Time: 04/15/2018 12:39:57 Reading Location: [facility] Radiology Reading Room Performing Organization Address City/[facility]/Zipcode Phone Number [facility] Calcium, Ionized (04/15/2018 11:06 AM CDT) Calcium, Ion 1.25 1.12 - 1.27 mmol/L [facility] pH, Blood 7.37 [facility] Specimen Blood Performing Organization Address [facility] [place] Phone Number [place] [phone] [place] [address] CENTER CBC with platelet count + automated diff (04/15/2018 11:05 AM CDT)Only the most recent of2 resultswithin the time period is included. WBC 12.0 (H) 3.5 - 10.5 K/L [facility] RBC 3.84 (L) 3.93 - 5.22 M/L [facility] Hemoglobin 11.4 11.2 - 15.7 GM/DL [facility] Hematocrit 35.7 34.1 - 44.9 % [facility] MCV 93.0 79.4 - 94.8 fL [facility] MCH 29.7 25.6 - 32.2 pg [facility] MCHC 31.9 (L) 32.2 - 35.5 GM/DL [facility] RDW 14.1 11.7 - 14.4 % [facility] Platelets 207 150 - 450 K/CU MM [facility] MPV 10.7 9.4 - 12.3 fL [facility] nRBC 0 0 - 0 /100 WBC [facility] % Neutros 77 % [facility] % Lymphs 15 % [facility] % Monos 6 % [facility] % Eos 1 % [facility] % Baso 1 % [facility] # Neutros 9.14 (H) 1.56 - 6.13 K/L [facility] # Lymphs 1.78 1.18 - 3.74 K/L [facility] # Monos 0.72 (H) 0.24 - 0.36 K/L [facility] # Eos 0.16 0.04 - 0.36 K/L [facility] # Baso 0.06 0.01 - 0.08 K/L [facility] Immature Granulocytes-Relative 1 0 - 1 % [facility] Specimen Blood Performing Organization Address City/State/Zipcode Phone Number [address] [address] [place] POC ACTIVATED CLOTTING TIME (04/15/2018 9:02 AM CDT) Activated Clotting Time 257Comment: TESTED AT sec [address] [address] Specimen Blood Performing Organization Address City/State/Zipcode Phone Number [address] [address] [place] XR chest 2 views (04/14/2018 1:39 PM CDT) Narrative Performed At FINAL REPORT [facility] Chest, two views HISTORY: Surgery COMPARISON: None. DISCUSSION: Lungs are clear without focal consolidation. Cardiomediastinal silhouette is unremarkable. Tortuosity and ectasia of the thoracic aorta. No acute osseous abnormality. No pleural effusion or pneumothorax. Visualized portions of the upper abdomen are unremarkable. IMPRESSION: No acute cardiopulmonary abnormality. Signed: Gera Hernandez MD Report Verified Date/Time:04/14/2018 14:12:09 Reading Location: [address] Radiology Reading Room Procedure Note Interface, [...] Report Verified Date/Time: 04/14/2018 14:12:09 Reading Location: [address] Radiology Reading Room Performing Organization Address City/State/Zipcode Phone Number [facility] Urinalysis w/Microscopic (04/14/2018 1:18 PM CDT) Color, UA Yellow [facility] Clarity, UA Clear [facility] Specific [place], UA 1.010 1.001 - 1.035 [facility] pH, UA 6.5 5.0 - 8.0 [facility] Protein, UA 20 mg/dL (A) Negative [facility] Glucose, UA Negative Negative [facility] Ketones, UA Negative Negative [facility] Bilirubin, UA Negative Negative [facility] Blood, UA Negative Negative [facility] Nitrite, UA Negative Negative [facility] Leukocytes, UA Negative Negative [facility] Urobilinogen, UA 0.2 0.2 - 1.0 mg/dL [facility] RBC, UA <1 /HPF [facility] WBC, UA <1 /HPF [facility] Mucus Rare [facility] Squam Epithel, UA <1 /HPF [facility] Hyaline Casts, UA 4 /LPF [facility] Specimen Source [facility] Specimen Urine Performing Organization Address City/State/[facility] [place] Phone Number [address] [address] CENTER Type and screen, automated (04/14/2018 1:17 PM CDT) ABO/RH AUTOMATED (BEAKER) A POSITIVE [facility] Ab Scrn NEGATIVE [facility] Specimen Blood Performing Organization Address City/[facility] [place] Phone Number [address] [address] HIV-1 Antigen with HIV-1/2 Antibody (04/14/2018 1:17 PM CDT) HIV-1 Antigen with HIV 1&2 Nonreactive [facility] Antibody [facility] Specimen Blood Performing Organization Address City/[facility] [place] Phone Number [address] [address] [phone] [place] Hepatitis B Panel (04/14/2018 1:17 PM CDT) Hep B Core Total Ab Nonreactive [facility] Hep B S Ab 63.1 (H) <8.0 mIU/mL [facility] hepatitis B Surface Ag Nonreactive [facility] Specimen Blood Performing Organization Address City/[facility] [place] Phone Number [address] [address] [phone] CENTER Hepatitis C antibody (04/14/2018 1:17 PM CDT) Hepatitis C Ab Nonreactive [facility] Specimen Blood Performing Organization Address [facility] [place] Phone Number [address] [address] CENTER Reticulocyte count (04/14/2018 1:17 PM CDT) % Retic 1.0 0.5 - 1.7 % [facility] Specimen Blood Performing Organization Address [facility] [place] Phone Number [address] [address] [phone] CENTER Lipase (04/14/2018 1:17 PM CDT) Lipase 10 8 - 78 U/L [facility] Specimen Blood Performing Organization Address [facility] Phone Number [address] [address] [phone] [place] Lactate dehydrogenase (LDH) (04/14/2018 1:17 PM CDT) LDH 238 (H) 125 - 220 U/L [facility] Specimen Blood Performing Organization Address [facility] Phone Number [address] [address] [phone] CENTER Amylase (04/14/2018 1:17 PM CDT) Amylase 40 25 - 125 U/L [facility] Specimen Blood Performing Organization Address [facility] Phone Number [address] [address] [place] Hepatic function panel (04/14/2018 1:17 PM CDT) Protein, Total 7.1 6.0 - 8.3 gm/dL [facility] Albumin 4.0 3.5 - 5.0 g/dL [facility] [facility] Total Bilirubin 0.4 0.2 - 1.2 mg/dL [facility] Bilirubin, Direct 0.2 0.1 - 0.5 mg/dL [facility] Alkaline Phosphatase 135 40 - 150 U/L [facility] AST 22 5 - 34 U/L [facility] ALT 22 6 - 55 U/L [facility] Specimen Blood Performing Organization Address City/State/Zipcode Phone Number [facility] [address] [place] [address] CENTER ECG 12 lead (04/14/2018 1:13 PM CDT) Narrative Performed At Ventricular Rate 56 BPM GE MUSE Atrial Rate 56 BPM P-R Interval 218 ms QRS Duration 70 ms Q-T Interval 428 ms QTC Calculation(Bazett) 413 ms P Manning 55 degrees R Manning -26 degrees T Manning 48 degrees Sinus bradycardia with 1st degree [...] 428 ms QTC Calculation(Bazett) 413 ms P Manning 55 degrees R Manning -26 degrees T Manning 48 degrees Sinus bradycardia with 1st degree A-V block with Premature atrial complexes Voltage criteria for left ventricular hypertrophy Inferior infarct , age undetermined Anterolateral infarct , age undetermined Abnormal ECG No previous ECGs available Confirmed by MD JOHNSON JOSEPH P ([id number]) on 04/15/2018 5:58:45 AM Performing Organization Address City/State/Zipcode Phone Number MONIE MUSE after 07/16/2017 Insurance Payer Benefit Plan / Group Subscriber ID Type Phone Address MEDICARE MEDICARE A B xxxxxxxxxx Medicare MCR SUPPLEMENT/INDIVIDUAL [employer] OF [employer] xxxxxxxx [facility] Advance Directives For more information, please contact:[address] [phone] Code Status Date Activated Date Inactivated Comments Full Code 04/15/2018 10:55 AM 04/19/2018 6:23 PM This code status was determined by: Patient Full Code 04/15/2018 6:03 AM 04/15/2018 10:55 AM This code status was determined by: Patient
[2018-07-17] MEDS ORDERED: cloNIDine HCl 0.1 MG TAB ONE (16:55)
[2018-07-17 17:24] LABS: Absolute Lymphocytes (CBC) 1.5 K/uL (0.7-4.9); Absolute Monocytes 0.7 K/uL (0.1-1.3); Absolute Neutrophil 5.2 K/uL (1.8-8.0); Basophils % 0.8 % (0-1.3); Eosinophils % 1.3 % (0-4.4); Hematocrit 39.9 % (36.0-45.0); Lymphocytes % 19.5 % (15.3-44.8); MCV 89.6 fL (80-100); MPV 9.1 fL (7.6-11.3); Monocytes % 9.2 % (3.3-12.3); RBC Red Blood Cell Count 4.45 M/uL (3.86-4.86)
[2018-07-17 17:27] LABS: Protime INR 1.02
--- NOTE | 2018-07-17 17:42 | RAD REPORT ---
EXAM DESCRIPTION: RAD - Chest Single View - 07/17/2018 5:31 pm CLINICAL HISTORY: Weakness, shortness of breath COMPARISON: September 2015 TECHNIQUE: AP portable chest image was obtained 1718 hours . FINDINGS: Lungs are clear. Heart and vasculature are normal. No measurable pleural effusion and no p neumothorax. No acute bony abnormality seen. Aortic tortuosity noted. No acute aortic finding over th is greater than 2 year interval. IMPRESSION: No acute cardiopulmonary process. No significant change comparison.
[2018-07-17 17:43] LABS: ALT/SGPT 23 U/L (12-78); AST/SGOT 17 U/L (15-37); Albumin 3.7 g/dL (3.4-5.0); Alkaline Phosphatase 153 U/L (45-117); BUN Blood Urea Nitrogen 11 mg/dL (7-18); Bicarbonate 26 mmol/L (21-32); Bilirubin Direct 0.1 mg/dL (0-0.2); Bilirubin Total 0.5 mg/dL (0.2-1.0); Glucose Level 129 mg/dL (74-106); Magnesium 2.2 mg/dL (1.8-2.4); NT PRO-BNP 624 pg/mL (<450); Potassium 3.8 mmol/L (3.5-5.1); Protein, Total 6.8 g/dL (6.4-8.2); Sodium Level 141 mmol/L (136-145); Troponin (Emerg Dept Use Only) < 0.02 ng/mL (0.0-0.045)
--- NOTE | 2018-07-17 17:45 | RAD REPORT ---
EXAM DESCRIPTION: CT - Head Brain Wo Cont - 07/17/2018 5:28 pm CLINICAL HISTORY: Headache, dizziness, vomiting COMPARISON: July 10 TECHNIQUE: Axial 5 mm thick images of the head were obtained without IV contrast. All CT scans are performed using dose optimization technique as appropriate and may include automated exposure control or mA/KV adjustment according to patient size. FINDINGS: No intracranial hemorrhage, mass, edema or shift of mid-line structures. No acute cortical based infarction identified. No cortical edema or sulcal effacement. Patient has advanced atrophy an d chronic ischemic change. Pattern extends into the left head of the caudate and basal ganglia region . Pattern is not clearly different from the short interval July 10 study. Ventricles remain in pro portion to the volume loss. Mastoid air cells and visualized portions of the paranasal sinuses are clear. No acute bony findings. IMPRESSION: No hemorrhage, mass or acute intracranial finding identifiable. Advanced atrophy and chronic ischemic change as detailed. Pattern is similar to short interval Octobe 21 study. Chronic ischemic changes can mask nonhemorrhagic acute infarction. MR brain followup can be obtained if there is ongoing concern for acute ischemia.
[2018-07-17 17:53] LABS: Urine Bacteria <20 /HPF (<20); Urine RBC <5 /HPF (NONE SEEN)
[2018-07-17 17:54] LABS: Urine Culture Reflex Order NOT NEEDED
--- NOTE | 2018-07-17 19:53 | ER ---
Nurse's Notes [facility] Name: Syl Sheikh Age: 78 yrs Sex: Female : 1940 Arrival Date: 07/17/2018 Time: 16:09 Bed 28 Private MD: Diagnosis: Weakness Presentation: 07/17 16:10 Presenting complaint: Patient states: dizziness and lightheadedness since this morning aa5 around 0800. Pt also reports vomited once today and c/o headache. EMS reports pt's BP 170/80. Transition of care: patient was not received from another setting of care. Onset of symptoms was July 17, 2018. Risk Assessment: Do you want to hurt yourself or someone else? Patient reports no desire to harm self or others. 16:10 Method Of Arrival: EMS: [facility] aa5 16:10 Acuity: MP 3 aa5 16:27 Initial Sepsis Screen: Does the patient meet any 2 criteria? No. Patient's initial mg2 sepsis screen is negative. Does the patient have a suspected source of infection? No. Patient's initial sepsis screen is negative. Care prior to arrival: None. Triage Assessment: 18:52 Headache History: The patient has had previous headaches and this one is similar to mg2 previous episodes. General: Appears in no apparent distress. comfortable, Behavior is calm, cooperative. Pain: Complains of pain in head Also complains of dizziness. Historical: - Allergies: 16:12 butorphanol tartrate; aa5 16:12 Hydrocodone-Acetaminophen; aa5 16:12 Lisinopril; aa5 16:12 statin drugs; aa5 16:12 Stadol; aa5 16:12 Codeine; aa5 - Home Meds: 17:50 Alprazolam Oral [Active]; Coreg Oral [Active]; paroxetine Oral [Active]; mg2 - PMHx: 16:12 CVA; Hypertension; TIA; Abdominal aortic aneurysm; aa5 - PSHx: 16:12 AAA repair 03/2018; aa5 - Immunization history:: Pneumococcal vaccine is not up to date, Flu vaccine is not up to date. - Social history:: Smoking status: Patient/guardian denies using tobacco. - Ebola Screening: : No symptoms or risks identified at this time. Screenin:23 Abuse screen: Denies threats or abuse. Denies injuries from another. Nutritional mg2 screening: No deficits noted. Tuberculosis screening: No symptoms or risk factors identified. Fall Risk Secondary diagnosis (15 points) dizziness. Assessment: 16:25 General: Appears in no apparent distress. comfortable, Behavior is calm, cooperative. mg2 Pain: Complains of pain in head Pain does not radiate. Pain currently is 5 out of 10 on a pain scale. Quality of pain is described as aching, Pain began gradually, this morning. Neuro: Level of Consciousness is awake, alert, obeys commands, Oriented to person, place, time, situation, Reports dizziness, since morning headache. Cardiovascular: Capillary refill < 3 seconds Patient's skin is warm and dry. Respiratory: Airway is patent Respiratory effort is even, unlabored, Respiratory pattern is regular, symmetrical. GI: No signs and/or symptoms were reported involving the gastrointestinal system. : No signs and/or symptoms were reported regarding the genitourinary system. EENT: No signs and/or symptoms were reported regarding the EENT system. Derm: Skin is intact, is healthy with good turgor, Skin is pink, warm \T\ dry. normal. Musculoskeletal: Circulation, motion, and sensation intact. Capillary refill < 3 seconds. 17:48 Reassessment: Patient appears in no apparent distress at this time. Patient and/or mg2 family updated on plan of care and expected duration. Pain level reassessed. Patient is alert, oriented x 3, equal unlabored respirations, skin warm/dry/pink. 20:33 Reassessment: Patient appears in no apparent distress at this time. Patient and/or mg2 family updated on plan of care and expected duration. Pain level reassessed. Patient is alert, oriented x 3, equal unlabored respirations, skin warm/dry/pink. Vital Signs: 16:22 BP 174 / 95; Pulse 58; Resp 18; Temp 97.9; Pulse Ox 97% on R/A; mg2 17:52 BP 165 / 84; Pulse 58; Resp 18; Pulse Ox 98% on R/A; Pain 5/10; mg2 18:41 BP 118 / 83; Pulse 57; Resp 18; Pulse Ox 98% on R/A; mg2 19:52 BP 146 / 90; Pulse 55; Resp 18; Pulse Ox 97% on R/A; mg2 20:34 BP 118 / 59; Pulse 58; Resp 18; Pulse Ox 98% on R/A; mg2 ED Course: 16:09 Patient arrived in ED. aa5 16:11 Triage completed. aa5 16:11 Arm band placed on. aa5 16:12 Samir Ward PA is PHCP. [facility] 16:13 Julio Pardo MD is Attending Physician. [facility] 16:22 Michael Muhammad, RN is Primary Nurse. mg2 17:28 CT Head Brain wo Cont In Process Unspecified. EDMS 17:29 X-ray completed. Patient tolerated procedure well. Patient moved back from radiology. ag1 17:31 XRAY Chest (1 view) In Process Unspecified. EDMS 17:48 Patient has correct armband on for positive identification. Placed in gown. Bed in low mg2 position. Call light in reach. Side rails up X 1. threat monitoring analyst on. Pulse ox on. NIBP on. 17:48 No provider procedures requiring assistance completed. Inserted saline lock: 20 gauge mg2 in left antecubital area, using aseptic technique. Blood collected. 19:52 Ankit Candelaria MD is Hospitalizing Provider. [facility] 22:01 Patient did not have IV access during this emergency room visit. mg2 Administered Medications: 17:21 Drug: cloNIDine 0.2 mg Route: PO; mg2 17:50 Follow up: Response: No adverse reaction; Blood pressure is lowered mg2 Outcome: 19:53 Decision to Hospitalize by Provider. feliberto 22:00 Admitted to Med/surg accompanied by tech, via stretcher, room 217, with chart, Report mg2 called to MIRIAM Felix 22:00 Condition: stable 22:00 Instructed on the need for admit, Demonstrated understanding of instructions. 22:01 Patient left the ED. mg2 Signatures: Dispatcher [employer] EDMS Samir Ward PA PA jmm Calderon, Audri, RN RN Yamilka Biswas ag1 Michael Muhammad, MIRIAM RN mg2
--- NOTE | 2018-07-17 19:53 | EDPHYS ---
Physician Documentation [facility] Name: Syl Sheikh Age: 78 yrs Sex: Female : 1940 Arrival Date: 07/17/2018 Time: 16:09 Bed 28 Private MD: ED Physician Julio Pardo HPI: 07/17 16:50 This 78 yrs old Female presents to ER via EMS with complaints of weakness. jmm 16:50 This is a 78 year old female with a history of HTN, CVA that presents to the ED with [facility] complaints of generalized weakness. Patient states she slept the entire night last night which is not normal for her. States she has not felt like herself. Blood pressure was over 175 systolic this morning. Patient took clonidine around 10 am. Denies haresh, denies new focal weakness. . 16:50 Patient states since last week she has had difficulty walking and has had to use a [facility] walker. . Historical: - Allergies: 16:12 butorphanol tartrate; aa5 16:12 Hydrocodone-Acetaminophen; aa5 16:12 Lisinopril; aa5 16:12 statin drugs; aa5 16:12 Stadol; aa5 16:12 Codeine; aa5 - Home Meds: 17:50 Alprazolam Oral [Active]; Coreg Oral [Active]; paroxetine Oral [Active]; mg2 - PMHx: 16:12 CVA; Hypertension; TIA; Abdominal aortic aneurysm; aa5 - PSHx: 16:12 AAA repair 03/2018; aa5 - Immunization history:: Pneumococcal vaccine is not up to date, Flu vaccine is not up to date. - Social history:: Smoking status: Patient/guardian denies using tobacco. - Ebola Screening: : No symptoms or risks identified at this time. ROS: 16:50 Eyes: Negative for injury, pain, redness, and discharge, Cardiovascular: Negative for jmm chest pain, palpitations, and edema, Respiratory: Negative for shortness of breath, cough, wheezing, and pleuritic chest pain. 16:50 Constitutional: Positive for malaise. 16:50 Neuro: Positive for dizziness. 16:50 All other systems are negative. Exam: 16:50 Head/Face: atraumatic. Eyes: EOMI, no conjunctival erythema appreciated ENT: Moist [facility] Mucus Membranes Neck: Trachea midline, Supple Chest/axilla: Normal chest wall appearance and motion. 16:50 Constitutional: The patient appears in no acute distress, alert, awake. 16:50 Cardiovascular: Rate: normal, Rhythm: regular, Pulses: no pulse deficits are appreciated. 16:50 Respiratory: the patient does not display signs of respiratory distress, Respirations: normal, Breath sounds: are clear throughout. 16:50 Abdomen/GI: Inspection: abdomen appears normal, Bowel sounds: normal, Palpation: abdomen is soft and non-tender. 16:50 Back: ROM is normal. 16:50 Musculoskeletal/extremity: ROM: intact in all extremities. 16:50 Skin: Appearance: Color: normal in color. 16:50 Neuro: Orientation: is normal, Mentation: is normal, Memory: is normal. 16:50 Psych: Behavior/mood is pleasant, cooperative. Vital Signs: 16:22 BP 174 / 95; Pulse 58; Resp 18; Temp 97.9; Pulse Ox 97% on R/A; mg2 17:52 BP 165 / 84; Pulse 58; Resp 18; Pulse Ox 98% on R/A; Pain 5/10; mg2 18:41 BP 118 / 83; Pulse 57; Resp 18; Pulse Ox 98% on R/A; mg2 19:52 BP 146 / 90; Pulse 55; Resp 18; Pulse Ox 97% on R/A; mg2 20:34 BP 118 / 59; Pulse 58; Resp 18; Pulse Ox 98% on R/A; mg2 MDM: 16:24 Patient medically screened. [facility] 19:51 Data reviewed: vital signs, nurses notes. Counseling: I had a detailed discussion with [facility] the patient and/or guardian regarding: the historical points, exam findings, and any diagnostic results supporting the discharge/admit diagnosis. ED course: I discussed the patient with Dr. Candelaria whom accepted admission. . 20:22 Data reviewed: lab test result(s), EKG, radiologic studies, CT scan, plain films. [facility] Counseling: I had a detailed discussion with the patient and/or guardian regarding: lab results, radiology results, the need for further work-up and treatment in the hospital. 07/17 16:46 Order name: Basic Metabolic Panel; Complete Time: 17:52 [facility] 07/17 16:46 Order name: CBC with Diff; Complete Time: 17:52 [facility] 07/17 16:46 Order name: LFT's; Complete Time: 17:52 [facility] 07/17 16:46 Order name: Magnesium; Complete Time: 17:52 [facility] 07/17 16:46 Order name: NT PRO-BNP; Complete Time: 17:52 [facility] 07/17 16:46 Order name: PT-INR; Complete Time: 17:52 [facility] 07/17 16:46 Order name: Troponin (emerg Dept Use Only); Complete Time: 17:52 [facility] 07/17 16:46 Order name: XRAY Chest (1 view); Complete Time: 17:52 [facility] 07/17 16:46 Order name: EKG; Complete Time: 16:47 [facility] 07/17 16:46 Order name: Cardiac monitoring; Complete Time: 17:21 [facility] 07/17 16:46 Order name: CT Head Brain wo Cont; Complete Time: 17:52 [facility] 07/17 16:47 Order name: Urine Microscopic Only; Complete Time: 18:01 [facility] 07/17 17:12 Order name: Urine Dipstick--Ancillary (enter results); Complete Time: 20:22 07/17 16:46 Order name: EKG - Nurse/Tech; Complete Time: 17:48 [facility] 07/17 16:46 Order name: IV Saline Lock; Complete Time: 17:21 [facility] 07/17 16:46 Order name: Labs collected and sent; Complete Time: 17:21 [facility] 07/17 16:46 Order name: O2 Per Protocol; Complete Time: 17:21 [facility] 07/17 16:46 Order name: O2 Sat Monitoring; Complete Time: 17:21 [facility] 07/17 16:47 Order name: Urine Dipstick-Ancillary (obtain specimen); Complete Time: 17:21 [facility] Administered Medications: 17:21 Drug: cloNIDine 0.2 mg Route: PO; mg2 17:50 Follow up: Response: No adverse reaction; Blood pressure is lowered mg2 Disposition: 07/18 15:18 Co-signature as Attending Physician, Julio Pardo MD. Disposition: 07/17/18 19:53 Hospitalization ordered by Ankit Candelaria for Observation. Preliminary diagnosis is Weakness. - Bed requested for Telemetry/MedSurg (observation). - Status is Observation. mg2 - Condition is Stable. - Problem is new. - Symptoms are unchanged. UTI on Admission? No Signatures: Dispatcher [employer] EDMS Anna See RN RN Samir Ward PA PA [facility] Alysha Shin RN RN aa5 Julio Pardo MD MD gs Gardose, Michele, RN RN mg2 Corrections: (The following items were deleted from the chart) 07/17 20:23 19:53 Hospitalization Ordered by Ankit Candelaria MD for Observation. Preliminary mw diagnosis is Weakness. Bed requested for Telemetry/MedSurg (observation). Status is Observation. Condition is Stable. Problem is new. Symptoms are unchanged. UTI on Admission? No. [facility] 22:01 20:23 07/17/2018 19:53 Hospitalization Ordered by Ankit Candelaria MD for Observation. mg2 Preliminary diagnosis is Weakness. Bed requested for Telemetry/MedSurg (observation). Status is Observation. Condition is Stable. Problem is new. Symptoms are unchanged. UTI on Admission? No. mw
[2018-07-17 20:15] LABS: Urine Blood NEGATIVE (NEG); Urine Glucose NEGATIVE (NEG); Urine Protein NEGATIVE (NEG); Urine Specific Gravity 1.015 (1.005-1.030)
[2018-07-17] MEDS ORDERED: MORPHINE 2 MG/ML SYR IV PRN (21:16)
[2018-07-17] MEDS ORDERED: ONDANSETRON 4 MG/2 ML VIAL IV PRN (21:16)
[2018-07-17] MEDS ORDERED: cloNIDine HCl 0.1 MG TAB PO PRN (21:17)
[2018-07-17] MEDS ORDERED: ALPRAZOLAM 0.25 MG TABLET PO PRN (21:17)
[2018-07-17 22:07] VITALS: BMI 21.6
[2018-07-17] MEDS ORDERED: cloNIDine HCl 0.1 MG TAB PO ONE (23:03)
[2018-07-17] MEDS: NA CHLORIDE 0.9% 1,000 ML IV SCH (23:16)
[2018-07-18 05:57] LABS: Absolute Lymphocytes (CBC) 1.7 K/uL (0.7-4.9); Absolute Monocytes 0.7 K/uL (0.1-1.3); Absolute Neutrophil 4.2 K/uL (1.8-8.0); Basophils % 0.8 % (0-1.3); Eosinophils % 2.3 % (0-4.4); Hematocrit 35.4 % (36.0-45.0); Lymphocytes % 24.8 % (15.3-44.8); MCH 30.4 pg (27.0-35.0); MCV 89.5 fL (80-100); MPV 8.8 fL (7.6-11.3); Monocytes % 9.7 % (3.3-12.3); RBC Red Blood Cell Count 3.96 M/uL (3.86-4.86)
[2018-07-18 06:09] LABS: Albumin 3.1 g/dL (3.4-5.0); Bilirubin Total 0.4 mg/dL (0.2-1.0); Potassium 3.5 mmol/L (3.5-5.1); Protein, Total 5.9 g/dL (6.4-8.2)
[2018-07-18] MEDS ORDERED: ALPRAZOLAM 0.5 MG TABLET PO PRN ×2 (06:44→07:09)
--- NOTE | 2018-07-18 06:45 | P.HP ---
Certification for Inpatient Patient admitted to: Observation With expected LOS: <2 Midnights Patient will require the following post-hospital care: None Practitioner: I am a practitioner with admitting privileges, knowledge of patient current condition, hospital course, and medical plan of care. 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 She finally retired and 2014. She retired after having a stroke. Over the last few years she has recovered very well from her stroke. She has been more active. She does see an vacuum cleaner operator as well as a title specialist. Her vacuum cleaner operator monitors her diabetes in her thyroid levels. Her title specialist saw her a few years ago and did a stress test which was negative. Actually this was in 2010. At this time her symptoms have waxed and waned for the last couple weeks. Will get her admitted and work her up for generalized weakness. Will also monitor her cardiac status and check an MRI of the brain for a possible recent stroke which may have caused poorly controlled blood pressure. She has had some changes made to her blood pressure medication to assist with blood pressure control. However, there are times when her blood pressure is doing well, but other times when her blood pressure is significantly elevated. Plan to admit her for observation to further evaluate her. Allergies acetaminophen [From Tylenol] Allergy (Verified 07/17/18 22:17) neck pain butorphanol tartrate [From Stadol] Allergy (Verified 07/17/18 22:17) hallucination hydrocodone Allergy (Verified 07/17/18 22:17) hyperactive, lisinopril Allergy (Verified 10/22/14 15:31) angioedema Codeine Allergy (Uncoded 08/23/15 10:31) Unknown Hydrocodone-Acetami Allergy (Uncoded 07/17/18 22:17) hyperactive Narcotic sensitivity Allergy (Uncoded 09/12/14 11:01) Unknown Stadol NS Allergy (Uncoded 08/23/15 10:31) Unknown Home Medications: ALPRAZolam [Xanax*] 0.25 mg PO TID PRN 07/17/18 Acetaminophen [Tylenol*] 2 tab PO Q6HP PRN 07/17/18 Carvedilol [Coreg*] 0.5 tab PO SEECOM 07/17/18 Carvedilol [Coreg*] 6.25 mg PO BID 07/17/18 Clonidine HCl [Catapres*] 0.2 mg PO Q8HP PRN 07/17/18 Famotidine [Pepcid*] 20 mg PO DAILY 07/17/18 Loratadine [Claritin*] 10 mg PO DAILY 07/17/18 PARoxetine HCl [Paxil*] 10 mg PO DAILY 07/17/18 Triamcinolone Acetonide [Nasacort] 2 spray NS DAILY 07/17/18 - Past Medical/Surgical History Has patient received pneumonia vaccine in the past: No Diabetic: No -: stroke -: aneurysms-thoracic and abdominal -: meniere's disease -: anxiety -: hysterectomy -: hemorrhoidectomy -: cosmetic surgeries - Family History Mother Medical History: Lung disease, Diabetes Notes: DVT, Afib, COPD Father Medical History: Lung disease Notes: COPD - Social History Smoking Status: Former smoker Alcohol use: No CD- Drugs: No Caffeine use: No Place of Residence: Home Review of Systems 10-point ROS is otherwise unremarkable Physical Examination - Vital Signs Temperature: 97.5 F Blood Pressure: 139/79 Pulse: 58 Respirations: 16 Pulse Ox (%): 97 - Physical Exam General: Alert, In no apparent distress, Oriented x3 HEENT: Atraumatic, PERRLA, Mucous membr. moist/pink, EOMI, Sclerae nonicteric Neck: Supple, 2+ carotid pulse no bruit, No LAD, Without JVD or thyroid abnormality Respiratory: Clear to auscultation bilaterally, Normal air movement Cardiovascular: Regular rate/rhythm, Normal S1 S2, Systolic murmur Gastrointestinal: Normal bowel sounds, Soft and benign, Non-distended, No tenderness Musculoskeletal: No clubbing, No swelling, No tenderness Integumentary: No rashes Neurological: Normal gait, Normal speech, Normal strength at 5/5 x4 extr, Normal tone, Sensation intact, Cranial nerves 3-12 intact, Normal affect Lymphatics: No axilla or inguinal lymphadenopathy - Studies Laboratory Data (last 24 hrs) 07/17/18 17:10: PT 12.0, INR 1.02 07/17/18 17:10: WBC 7.5, Hgb 13.3, Hct 39.9, Plt Count 201 07/17/18 17:10: Sodium 141, Potassium 3.8, BUN 11, Creatinine 0.80, Glucose 129 H, Magnesium 2.2, Total Bilirubin 0.5, AST 17, ALT 23, Alkaline Phosphatase 153 H Assessment & Plan - Problems (Diagnosis) (1) Generalized weakness Status: Acute (2) CVA (cerebral vascular accident) Status: Acute (3) Dizziness Onset Date: 10/17/15 Status: Acute (4) Dyslipidemia Onset Date: 10/23/14 Status: Acute (5) Hypertension Onset Date: 10/23/14 Status: Acute (6) Paresthesia Onset Date: 08/22/15 Status: Acute (7) Transient ischemic attack (TIA) Onset Date: 02/27/15 Status: Acute - Plan 1. MRI of the brain 2. Echocardiogram and carotid Doppler 3. Anti-platelet therapy and statin therapy 4. Neurology consultation 5. Physical therapy/occupational therapy/speech therapy evaluation 6. Modified barium swallow study 7. DVT prophylaxis - Advance Directives Does patient have a Living Will: No Does patient have a Durable POA for Healthcare: No - Code Status/Comfort Care Code Status Assessed: Yes Code Status: Full Code Critical Care: No Time Spent Managing PTS Care (In Minutes): 50
--- NOTE | 2018-07-18 07:04 | EKG ---
Test Date: 2018-07-17 Test Time: 17:41:15 Tennis Ball Coverer Hand: MG MEASUREMENT RESULTS: Intervals: Rate: 54 AR: 204 QRSD: 78 QT: 426 QTc: 403 [place]: P: 49 AR: 204 QRS: -24 T: 62 INTERPRETIVE STATEMENTS: Sinus bradycardia Minimal voltage criteria for LVH, may be normal variant Inferior infarct, age undetermined Anterior infarct, age undetermined Abnormal ECG Compared to ECG 07/10/2018 21:24:08 Sinus rhythm no longer present Myocardial infarct finding still present Electronically Signed On 07-18-18 07:03:35 CDT by Pawel Michel
[2018-07-18] MEDS ORDERED: PNEUMOCOCCAL VACCINE 0.5 ML IMVAC ONE (08:00)
[2018-07-18] MEDS ORDERED: INFLUENZA VACCINE (for 3y+) 0.5 ML DOSE IMVAC ONE (08:00)
[2018-07-18] MEDS ORDERED: cloNIDine HCl 0.1 MG TAB PO PRN ×2 (08:00)
[2018-07-18] MEDS ORDERED: LORATADINE 10 MG TAB PO SCH (09:00)
[2018-07-18] MEDS: TRIAMCINOLONE ACETONIDE NS SCH (09:00)
[2018-07-18] MEDS ORDERED: NEBIVOLOL HCL 5 MG TAB PO SCH (09:00)
[2018-07-18] MEDS ORDERED: PARoxetine HCl 10 MG TAB PO SCH (09:00)
[2018-07-18] MEDS ORDERED: predniSONE 5 MG TAB PO SCH (09:00)
[2018-07-18] MEDS: DIPYRIDAMOLE/ASPIRIN CAP ER PO SCH ×2 (09:06→20:59)
[2018-07-18] MEDS: CARVEDILOL 6.25 MG TAB PO SCH ×2 (09:07→20:59)
[2018-07-18] MEDS: PARoxetine HCl 10 MG TAB PO SCH (09:07)
[2018-07-18] MEDS: NA CHLORIDE 0.9% 1,000 ML IV SCH ×3 (11:20→23:31)
--- NOTE | 2018-07-18 11:40 | RAD REPORT ---
EXAM DESCRIPTION: MRI - Brain Wo Cont - 07/18/2018 11:20 am CLINICAL HISTORY: CVA/weakness COMPARISON: Head Brain Wo Cont dated 07/17/2018; Brain Wo Cont dated 07/20/2017; MRI BRAIN W WO CONT RAST dated 10/17/2015; MRI BRAIN W WO CONTRAST dated 04/24/2015 TECHNIQUE: Multi-sequence, multiplanar MR imaging of the brain was performed without contrast. FINDINGS: No intracranial hemorrhage, hydrocephalus or extra-axial fluid collections.Moderate conflu ent T2/FLAIR hyperintensity in the periventricular and deep white matter is present compatible with c hronic microvascular ischemic changes. No edema or shift of midline structures. No findings to suspec t brain mass. DWI is negative for acute CVA. Midline structures are normally formed. Basilar artery appears tortuous and ectatic. Mastoid air cells and paranasal sinuses are clear. IMPRESSION: Negative for acute CVA or other acute intracranial abnormality.
--- NOTE | 2018-07-18 12:06 | RAD REPORT ---
EXAM DESCRIPTION: US - CP - 07/18/2018 11:50 am CLINICAL HISTORY: Uncontrolled HTN Syncope COMPARISON: Carotid Artery Bilateral dated 03/17/2018; Brain Wo Cont dated 07/18/2018 TECHNIQUE: Real-time sonographic evaluation of both carotid systems was performed. Doppler interroga tion was performed with waveform tracing bilaterally. FINDINGS: Normal high resistance waveforms are noted in both external carotid arteries. The common c arotid arteries and internal carotid arteries show normal low resistance waveforms. A moderate soft plaque is present involving the right carotid bulb. A small hard plaque is present in volving the left carotid bulb. Peak systolic and end diastolic velocity values and the ICA/CCA ratios are in the non-hemodynamically significant range. Antegrade flow seen in both vertebral arteries. IMPRESSION: Bilateral plaquing in both carotid bulbs as detailed above, with a prominent right carot id bulb soft plaque noted. No evidence of a hemodynamically significant stenosis.
--- NOTE | 2018-07-18 13:12 | ECHO ---
HEIGHT: 5 ft 7 in WEIGHT: 137 lb 14.4 oz DATE OF STUDY: 07/18/[address]: Ankit Candelaria MD 2-DIMENSIONAL: YES M.MODE: YES DOPPLER: YES COLOR FLOW: YES TDS: PORTABLE: DEFINITY: BUBBLE STUDY: DIAGNOSIS: UNCONTROLLED HYPERTENSION CARDIAC HISTORY: CATHERIZATION: NO SURGERY: NO PROSTHETIC VALVE: NO PACEMAKER: NO MEASUREMENTS (cm) DIASTOLIC (NORMALS) SYSTOLIC (NORMALS) IVSd 1.0 (0.6-1.2) LA Diam 3.3 (1.9-4.0) LVEF 75% LVIDd 4.7 (3.5-5.7) LVIDs 2.7 (2.0-3.5) %FS 44% LVPWd 1.0 (0.6-1.2) Ao Diam 3.4 (2.0-3.7) 2 DIMENSIONAL ASSESSMENT: RIGHT ATRIUM: NORMAL LEFT ATRIUM: NORMAL RIGHT VENTRICLE: NORMAL LEFT VENTRICLE: NORMAL TRICUSPID VALVE: NORMAL MITRAL VALVE: NORMAL PULMONIC VALVE: NORMAL AORTIC VALVE: NORMAL PERICARDIAL EFFUSION: NONE AORTIC ROOT: NORMAL LEFT VENTRICULAR WALL MOTION: NORMAL DOPPLER/COLOR FLOW: NORMAL COMMENTS: NORMAL LEFT VENTRICULAR SIZE AND FUNCTION. MILD TRICUSPID REGURGITATION. NO WALL MOTION ABNORMALITY. TECHNOLOGIST: JOSH ERNANDEZ
[2018-07-18] MEDS: ACETAMINOPHEN 500 MG TAB PO PRN ×2 (17:03→20:58)
--- NOTE | 2018-07-18 19:55 | PN ---
Date of Progress Note: 07/18/2018 Subjective: The patient states she feels about the same, although her blood pressure has fluctuated some. It has not been as wild as extremes as it was before she came in. The workup was consistent w ith prior evaluations. The central nervous system, significant vascular disease. Echo was normal. If her vital signs remained stable and nutritional element improves, she possibly would be home by to [place]. Cardiology will also be consulted prior to discharge as well as neurologist. HR/MODL Voice ID: [id number] Report ID: [id number]
[2018-07-18] MEDS ORDERED: PSYLLIUM HUSK PO SCH (21:00)
[2018-07-18] MEDS ORDERED: ASPARTAME PO SCH (21:00)
[2018-07-18 22:20] VITALS: O2SAT 97
--- NOTE | 2018-07-19 03:15 | CON ---
Date of Consultation: 07/18/2018 Reason For Admission: Admitted by Dr. Soliman on 07/17/2018 for weakness, hypertension, history of C VA, and renal insufficiency. The patient was seen by me on 07/18/2018. History Of Present Illness: Ms. Sheikh is a 78, has a history of CVA, hypertension, TIA, recent abd ominal aortic aneurysm repair by Dr. Avelar in March of 2018. She really has no specific symptoms. Denies any chest pain, shortness of breath, nausea, vomiting, diaphoresis, PND, orthopnea, pedal giulia a, palpitations, or syncope. Her main complaint is just severe weakness. Allergies: SHE IS ALLERGIC TO TYLENOL, HYDROCODONE, AND LISINOPRIL. Review of Systems: Negative. Social History: Negative. Family History: Negative. Medications: At home include clonidine p.r.n., Coreg, Xanax Paxil, Nasacort, Pepcid, and loratadine. Physical Examination: Vital Signs: Stable. Afebrile. Sinus rhythm. HEENT: Negative. Neck: Supple. No bruit. Chest: Clear. Cardiac: Unremarkable. Abdomen: Benign. Extremities: Revealed no clubbing, cyanosis, or edema. Diagnostic Data: Showed a BNP of 624, but an echocardiogram was normal. Carotid was normal. EKG sh owed sinus bradycardia with LVH. Chest x-ray was negative. CT of the head was negative. MRI of the head was negative. Impression And Plan: 1.Weakness, may be secondary to her polypharmacy. Certainly, depression may be another possibility. This is definitely not a cardiac issue, although maybe decreasing her Coreg dose may help with her bradycardia and may make her feel better. I do not recommend any further cardiac workup on her at th is point. 2.History of cerebrovascular accident. 3.Hypertension, labile. 4.History of abdominal aortic aneurysm, status post recent repair by Dr. Avelar in March of 2019. T his needs to be followed up on a yearly basis with an ultrasound and a CT scan of the abdomen. [facility] that regard. NB/MODL Voice ID: [id number] Report ID: [id number]
[2018-07-19] MEDS: TRIAMCINOLONE ACETONIDE NS SCH (09:00)
[2018-07-19] MEDS: DIPYRIDAMOLE/ASPIRIN CAP ER PO SCH (09:00)
[2018-07-19] MEDS: PARoxetine HCl 10 MG TAB PO SCH (09:04)
[2018-07-19] MEDS: CARVEDILOL 6.25 MG TAB PO SCH (09:04)
--- NOTE | 2018-07-20 00:12 | PN ---
Date of Progress Note: 07/19/2018 The patient feels somewhat better. She felt that she could handle situation at home, various medicat ion resumes were presented as far as controlling her somewhat fluctuant blood pressure. She will con tinue to monitor these. Cardiac workup basically was negative as well as a neurological. She was se en by Cardiology. She was discharged, continue on her beta-wilson, and in good condition. Follow u p with me in a few days. Final Diagnoses: Hypertension, labile; dehydration; general malaise; transient ischemic attack, cere brovascular accident, old by history. HR/MODL Voice ID: [id number] Report ID: [id number]
[2018-07-25 20:16] VITALS: BP 139/79; TEMP 97.5
== END 2018-07-19 12:30 | disposition home health service (06) ==
LOC: ER 16:07 → ERHOLD 20:22 → 2ND 21:46
PROVIDERS: ADMIT Hospitalist; ATTEND Hospitalist
DX: G45.9 Transient cerebral ischemic attack, unspecified (principal); R53.1 Weakness; I10 Essential (primary) hypertension; E86.0 Dehydration; Z86.73 Personal history of transient ischemic attack (TIA), and cerebral infarction without residual deficits
CPT/HCPCS: 36415; 70450; 70551; 71045; 80048; 80053; 80076; 83735; 83880; 84484; 85025 ×2; 85610; 93005; 93306; 93880; 99285; G0378 ×2; J7030 ×2; 81003; 81015; J7512

== ENCOUNTER 2019-01-03 13:24 | Observation (INO) | payer OTHER ==
--- OUTSIDE RECORDS SUMMARY | 2019-01-03 13:32 | XMS REPORT ---
:1940 Author Organization [facility] Address [address] [place] [address] Care Team Providers Name Role Phone DOMINIC [...] ID: VIEW, NON DEPT EVARShould this be [phone] Chest one view performed at the INDICATION: [...] MDReport Verified Date/Time: 04/19/2018 10:16:05 Reading Location: [facility] Radiology Reading Room PHORUS 2018-04-19 05:21:00 Test Item Value Reference Range Comments PHOSPHORUS (BEAKER) (test tzqw=922) 4.0 mg/dL 2.3-4.7 [id number] 05:21:00 Test Item Value Reference Range Comments MAGNESIUM (BEAKER) (test glco=819) 2.2 mg/dL 1.6-2.6 BASIC METABOLIC [id number] 05:21:00 Test Item Value Reference Range Comments SODIUM (BEAKER) (test 141 meq/L 136-145 qgkj=624) POTASSIUM (BEAKER) (test 3.6 meq/L 3.5-5.1 cuod=138) CHLORIDE (BEAKER) (test 106 meq/L 98-107 fmif=203) CO2 (BEAKER) (test 28 meq/L 22-29 llcx=913) BLOOD UREA NITROGEN 20 mg/dL 7-21 (BEAKER) (test iptf=855) CREATININE (BEAKER) (test 0.87 mg/dL 0.57-1.25 mpbn=739) GLUCOSE RANDOM (BEAKER) 122 mg/dL 70-105 (test nwpl=932) CALCIUM (BEAKER) (test 9.0 mg/dL 8.4-10.2 yzos=206) EGFR (BEAKER) (test 63 mL/min/1.73 sq m ESTIMATED GFR IS NOT ozbn=9159) ACCURATE CREATININE CLEARANCE IN PREDICTING GLOMERULAR FILTRATION RATE. ESTIMATED GFR IS NOT APPLICABLE FOR DIALYSIS PATIENTS. [id number] 04:58:00 Test Item Value Reference Range Comments PARTIAL THROMBOPLASTIN TIME (BEAKER) (test 36.6 seconds 22.5-36.0 ftby=076) PROTHROMBIN TIME/[id number] 04:57:00 Test Item Value Reference Range Comments PROTIME (BEAKER) (test fgao=006) 15.9 seconds 11.7-14.7 INR (BEAKER) (test usjy=394) 1.3 <=5.9 RECOMMENDED COUMADIN/WARFARIN INR THERAPY RANGESSTANDARD DOSE: 2.0 - 3.0 Includes: PROPHYLAXIS forvenous thrombosis, systemic embolization; TREATMENT for venous thrombosis and/or pulmonary embolus.HIGH RISK: Target INR is 2.5-3.5 for patients with mechanical heart valves.CBC (HEMOGRAM ONLY)2018-04-19 04:47:00 Test Item Value Reference Range Comments WHITE BLOOD CELL COUNT (BEAKER) (test tcqm=829) 9.5 K/ L 3.5-10.5 RED BLOOD CELL COUNT (BEAKER) (test fakm=307) 3.64 M/ L 3.93-5.22 HEMOGLOBIN (BEAKER) (test amae=526) 10.6 GM/DL 11.2-15.7 HEMATOCRIT (BEAKER) (test dwxm=831) 33.8 % 34.1-44.9 MEAN CORPUSCULAR VOLUME (BEAKER) (test byte=619) 92.9 fL 79.4-94.8 MEAN CORPUSCULAR HEMOGLOBIN (BEAKER) (test 29.1 pg 25.6-32.2 fhez=395) MEAN CORPUSCULAR HEMOGLOBIN CONC (BEAKER) (test 31.4 GM/DL 32.2-35.5 gcnr=713) RED CELL DISTRIBUTION WIDTH (BEAKER) (test 14.1 % 11.7-14.4 nhyp=690) PLATELET COUNT (BEAKER) (test czeq=471) 232 K/CU MM 150-450 MEAN PLATELET VOLUME (BEAKER) (test xyea=033) 10.9 fL 9.4-12.3 NUCLEATED RED BLOOD CELLS (BEAKER) (test 0 /100 WBC 0-0 wctr=168) RAD, CHEST, 1 VIEW, NON [id number] 08:00:00Reason for exam:->S/P EVARShould this be performed [...] MDReport Verified Date/Time: 04/18/2018 08:00:53 Reading Location: [facility] Radiology Reading Room [id number] 05:25:00 Test Item Value Reference Range Comments PHOSPHORUS (BEAKER) (test gsdd=743) 3.6 mg/dL 2.3-4.7 [id number] 05:25:00 Test Item Value Reference Range Comments MAGNESIUM (BEAKER) (test pkdv=087) 2.2 mg/dL 1.6-2.6 BASIC METABOLIC [id number] 05:25:00 Test Item Value Reference Range Comments SODIUM (BEAKER) (test 139 meq/L 136-145 fphq=538) POTASSIUM (BEAKER) (test 3.2 meq/L 3.5-5.1 mzbk=475) CHLORIDE (BEAKER) (test 103 meq/L 98-107 iflj=127) CO2 (BEAKER) (test 25 meq/L 22-29 dpfs=980) BLOOD UREA NITROGEN 17 mg/dL 7-21 (BEAKER) (test pbjp=531) CREATININE (BEAKER) (test 0.86 mg/dL 0.57-1.25 vffn=396) GLUCOSE RANDOM (BEAKER) 150 mg/dL 70-105 (test nlko=018) CALCIUM (BEAKER) (test 9.6 mg/dL 8.4-10.2 ayfp=496) EGFR (BEAKER) (test 64 mL/min/1.73 sq m ESTIMATED GFR IS NOT tnhu=4481) ACCURATE CREATININE CLEARANCE IN PREDICTING GLOMERULAR FILTRATION RATE. ESTIMATED GFR IS NOT APPLICABLE FOR DIALYSIS PATIENTS. [id number] 05:06:00 Test Item Value Reference Range Comments PARTIAL THROMBOPLASTIN TIME (BEAKER) (test 36.5 seconds 22.5-36.0 kuii=295) PROTHROMBIN TIME/[id number] 05:05:00 Test Item Value Reference Range Comments PROTIME (BEAKER) (test xppr=866) 16.5 seconds 11.7-14.7 INR (BEAKER) (test nncp=354) 1.3 <=5.9 RECOMMENDED COUMADIN/WARFARIN INR THERAPY RANGESSTANDARD DOSE: 2.0 - 3.0 Includes: PROPHYLAXIS forvenous thrombosis, systemic embolization; TREATMENT for venous thrombosis and/or pulmonary embolus.HIGH RISK: Target INR is 2.5-3.5 for patients with mechanical heart valves.CBC (HEMOGRAM ONLY)2018-04-18 04:52:00 Test Item Value Reference Range Comments WHITE BLOOD CELL COUNT (BEAKER) (test mybu=894) 11.2 K/ L 3.5-10.5 RED BLOOD CELL COUNT (BEAKER) (test ikbh=794) 3.90 M/ L 3.93-5.22 HEMOGLOBIN (BEAKER) (test brsh=618) 11.3 GM/DL 11.2-15.7 HEMATOCRIT (BEAKER) (test wxfi=982) 35.7 % 34.1-44.9 MEAN CORPUSCULAR VOLUME (BEAKER) (test axlg=831) 91.5 fL 79.4-94.8 MEAN CORPUSCULAR HEMOGLOBIN (BEAKER) (test 29.0 pg 25.6-32.2 yorw=284) MEAN CORPUSCULAR HEMOGLOBIN CONC (BEAKER) (test 31.7 GM/DL 32.2-35.5 crma=164) RED CELL DISTRIBUTION WIDTH (BEAKER) (test 14.2 % 11.7-14.4 awgy=191) PLATELET COUNT (BEAKER) (test cexg=996) 208 K/CU MM 150-450 MEAN PLATELET VOLUME (BEAKER) (test ginf=114) 10.6 fL 9.4-12.3 NUCLEATED RED BLOOD CELLS (BEAKER) (test 0 /100 WBC 0-0 loeq=940) RAD, CHEST, 1 VIEW, NON [id number] 10:31:00Reason for exam:->S/P EVARShould this be performed at the bedside?->YesFINAL REPORT Chest, one view. HISTORY: Status post aortic repair COMPARISON: 2017 IMPRESSION: No significant change. Unchanged tortuosity and ectasia of the thoracic aorta.Mild interstitial edema. No large pleural effusion or pneumothorax. Signed: Gera eHrnandez Verified Date/Time: 04/17/2018 10: 31:41 Reading Location: [facility] C013Y CT Body Reading Room [id number] 06: 43:00 Test Item Value Reference Range Comments PHOSPHORUS (BEAKER) (test gagu=039) 3.3 mg/dL 2.3-4.7 [id number] 06:43:00 Test Item Value Reference Range Comments MAGNESIUM (BEAKER) (test hqxo=528) 2.0 mg/dL 1.6-2.6 [id number] 06:23:00 Test Item Value Reference Range Comments PARTIAL THROMBOPLASTIN TIME (BEAKER) (test 36.4 seconds 22.5-36.0 rvbq=070) PROTHROMBIN TIME/[id number] 06:22:00 Test Item Value Reference Range Comments PROTIME (BEAKER) (test tiik=552) 17.3 seconds 11.7-14.7 INR (BEAKER) (test mgje=265) 1.4 <=5.9 RECOMMENDED COUMADIN/WARFARIN INR THERAPY RANGESSTANDARD DOSE: 2.0 - 3.0 Includes: PROPHYLAXIS forvenous thrombosis, systemic embolization; TREATMENT for venous thrombosis and/or pulmonary embolus.HIGH RISK: Target INR is 2.5-3.5 for patients with mechanical heart valves.CBC (HEMOGRAM ONLY)2018-04-17 06:13:00 Test Item Value Reference Range Comments WHITE BLOOD CELL COUNT (BEAKER) (test ysly=076) 13.2 K/ L 3.5-10.5 RED BLOOD CELL COUNT (BEAKER) (test jecn=565) 3.84 M/ L 3.93-5.22 HEMOGLOBIN (BEAKER) (test uryw=673) 11.5 GM/DL 11.2-15.7 HEMATOCRIT (BEAKER) (test xgua=090) 34.9 % 34.1-44.9 MEAN CORPUSCULAR VOLUME (BEAKER) (test vnqm=107) 90.9 fL 79.4-94.8 MEAN CORPUSCULAR HEMOGLOBIN (BEAKER) (test 29.9 pg 25.6-32.2 sjtv=480) MEAN CORPUSCULAR HEMOGLOBIN CONC (BEAKER) (test 33.0 GM/DL 32.2-35.5 hoya=838) RED CELL DISTRIBUTION WIDTH (BEAKER) (test 14.0 % 11.7-14.4 dpmd=888) PLATELET COUNT (BEAKER) (test jaov=720) 201 K/CU MM 150-450 MEAN PLATELET VOLUME (BEAKER) (test ybrt=553) 10.6 fL 9.4-12.3 NUCLEATED RED BLOOD CELLS (BEAKER) (test 0 /100 WBC 0-0 qjyr=758) RAD, CHEST, 1 VIEW, NON [id number] 09:02:00Reason for exam:->S/P EVARShould this be performed [...] Hernandezeport Verified Date/Time: 04/16/2018 09:02:11 Reading Location: [facility] B1 C013Y CT Body Reading Room [id number] 06:11:00 Test Item Value Reference Range Comments PHOSPHORUS (BEAKER) (test qbty=192) 1.9 mg/dL 2.3-4.7 [id number] 06:11:00 Test Item Value Reference Range Comments MAGNESIUM (BEAKER) (test hhcz=046) 2.0 mg/dL 1.6-2.6 BASIC METABOLIC [id number] 06:11:00 Test Item Value Reference Range Comments SODIUM (BEAKER) (test 137 meq/L 136-145 duns=936) POTASSIUM (BEAKER) (test 3.2 meq/L 3.5-5.1 palp=927) CHLORIDE (BEAKER) (test 104 meq/L 98-107 ftgg=473) CO2 (BEAKER) (test 24 meq/L 22-29 jbgp=333) BLOOD UREA NITROGEN 7 mg/dL 7-21 (BEAKER) (test qwjj=118) CREATININE (BEAKER) (test 0.86 mg/dL 0.57-1.25 qrzv=333) GLUCOSE RANDOM (BEAKER) 179 mg/dL 70-105 (test oszc=521) CALCIUM (BEAKER) (test 9.0 mg/dL 8.4-10.2 qkmz=664) EGFR (BEAKER) (test 64 mL/min/1.73 sq m ESTIMATED GFR IS NOT msfh=3431) ACCURATE CREATININE CLEARANCE IN PREDICTING GLOMERULAR FILTRATION RATE. ESTIMATED GFR IS NOT APPLICABLE FOR DIALYSIS PATIENTS. [id number] 05:46:00 Test Item Value Reference Range Comments PARTIAL THROMBOPLASTIN TIME (BEAKER) (test 32.0 seconds 22.5-36.0 bmcd=795) PROTHROMBIN TIME/[id number] 05:45:00 Test Item Value Reference Range Comments PROTIME (BEAKER) (test oscn=659) 15.0 seconds 11.7-14.7 INR (BEAKER) (test wres=729) 1.2 <=5.9 RECOMMENDED COUMADIN/WARFARIN INR THERAPY RANGESSTANDARD DOSE: 2.0 - 3.0 Includes: PROPHYLAXIS forvenous thrombosis, systemic embolization; TREATMENT for venous thrombosis and/or pulmonary embolus.HIGH RISK: Target INR is 2.5-3.5 for patients with mechanical heart valves.CBC (HEMOGRAM ONLY)2018-04-16 05:31:00 Test Item Value Reference Range Comments WHITE BLOOD CELL COUNT (BEAKER) (test xzle=869) 12.0 K/ L 3.5-10.5 RED BLOOD CELL COUNT (BEAKER) (test hyak=726) 4.19 M/ L 3.93-5.22 HEMOGLOBIN (BEAKER) (test nvjk=718) 12.4 GM/DL 11.2-15.7 HEMATOCRIT (BEAKER) (test snoo=530) 38.6 % 34.1-44.9 MEAN CORPUSCULAR VOLUME (BEAKER) (test wazg=147) 92.1 fL 79.4-94.8 MEAN CORPUSCULAR HEMOGLOBIN (BEAKER) (test 29.6 pg 25.6-32.2 yfcl=089) MEAN CORPUSCULAR HEMOGLOBIN CONC (BEAKER) (test 32.1 GM/DL 32.2-35.5 ywvm=961) RED CELL DISTRIBUTION WIDTH (BEAKER) (test 14.0 % 11.7-14.4 bood=330) PLATELET COUNT (BEAKER) (test nery=110) 223 K/CU MM 150-450 MEAN PLATELET VOLUME (BEAKER) (test lvei=470) 10.3 fL 9.4-12.3 NUCLEATED RED BLOOD CELLS (BEAKER) (test 0 /100 WBC 0-0 bfvb=314) [id number] 13:56:00 Test Item Value Reference Range Comments ACTIVATED CLOTTING TIME [address] [facility] [address] (BEAKER) (test ecya=288) [place] [address] RAD, ABDOMEN/KUB, 1 VIEW [id number] 12:39:00Reason for exam:->Postop AAAFINAL REPORT CLINICAL HISTORY: [...] GodwinMDReport Verified Date/Time: 2017 12:39:57 Reading Location: [facility] Radiology Reading Room RAD, CHEST , 1 VIEW, NON [id number] 12:38:00For chest painReason for exam:->post opShould this be performed at the bedside?->YesFINAL REPORT CLINICAL HISTORY: post op TECHNIQUE: 1 view of the chest. COMPARISON: 04/10/2018 IMPRESSION: There are no focal infiltrates or effusions. Cardiomegaly is again seen with tortuosity of the thoracic aorta. Signed: Hardik Godwin MDReport Verified Date/Time: 04/15/201812:38:40 Reading Location: [facility] Radiology Reading Room [id number] 11:51:00 Test Item Value Reference Range Comments PHOSPHORUS (BEAKER) (test vrfc=321) 3.2 mg/dL 2.3-4.7 BASIC METABOLIC [id number] 11:51:00 Test Item Value Reference Range Comments SODIUM (BEAKER) (test 140 meq/L 136-145 yjne=363) POTASSIUM (BEAKER) (test 3.8 meq/L 3.5-5.1 krdm=230) CHLORIDE (BEAKER) (test 109 meq/L 98-107 qktj=348) CO2 (BEAKER) (test 24 meq/L 22-29 bhtt=781) BLOOD UREA NITROGEN 12 mg/dL 7-21 (BEAKER) (test xlju=258) CREATININE (BEAKER) (test 0.77 mg/dL 0.57-1.25 eybm=697) GLUCOSE RANDOM (BEAKER) 176 mg/dL 70-105 (test wkix=752) CALCIUM (BEAKER) (test 9.7 mg/dL 8.4-10.2 dbme=181) EGFR (BEAKER) (test 73 mL/min/1.73 sq m ESTIMATED GFR IS NOT pqgo=7831) ACCURATE CREATININE CLEARANCE IN PREDICTING GLOMERULAR FILTRATION RATE. ESTIMATED GFR IS NOT APPLICABLE FOR DIALYSIS PATIENTS. CBC W/PLT COUNT & AUTO [id number] 11:23:00 Test Item Value Reference Range Comments WHITE BLOOD CELL COUNT (BEAKER) (test hhrc=648) 12.0 K/ L 3.5-10.5 RED BLOOD CELL COUNT (BEAKER) (test jzyo=008) 3.84 M/ L 3.93-5.22 HEMOGLOBIN (BEAKER) (test jkug=870) 11.4 GM/DL 11.2-15.7 HEMATOCRIT (BEAKER) (test tecu=389) 35.7 % 34.1-44.9 MEAN CORPUSCULAR VOLUME (BEAKER) (test gvkx=806) 93.0 fL 79.4-94.8 MEAN CORPUSCULAR HEMOGLOBIN (BEAKER) (test 29.7 pg 25.6-32.2 lmyv=155) MEAN CORPUSCULAR HEMOGLOBIN CONC (BEAKER) (test 31.9 GM/DL 32.2-35.5 jsdv=116) RED CELL DISTRIBUTION WIDTH (BEAKER) (test 14.1 % 11.7-14.4 zmdv=701) PLATELET COUNT (BEAKER) (test fntr=939) 207 K/CU MM 150-450 MEAN PLATELET VOLUME (BEAKER) (test czae=005) 10.7 fL 9.4-12.3 NUCLEATED RED BLOOD CELLS (BEAKER) (test 0 /100 WBC 0-0 wxov=625) NEUTROPHILS RELATIVE PERCENT (BEAKER) (test 77 % rpzg=953) LYMPHOCYTES RELATIVE PERCENT (BEAKER) (test 15 % qsby=443) MONOCYTES RELATIVE PERCENT (BEAKER) (test 6 % seje=945) EOSINOPHILS RELATIVE PERCENT (BEAKER) (test 1 % kyky=682) BASOPHILS RELATIVE PERCENT (BEAKER) (test 1 % robj=365) NEUTROPHILS ABSOLUTE COUNT (BEAKER) (test 9.14 K/ L 1.56-6.13 kfhs=224) LYMPHOCYTES ABSOLUTE COUNT (BEAKER) (test 1.78 K/ L 1.18-3.74 lgnx=771) MONOCYTES ABSOLUTE COUNT (BEAKER) (test 0.72 K/ L 0.24-0.36 boxq=431) EOSINOPHILS ABSOLUTE COUNT (BEAKER) (test 0.16 K/ L 0.04-0.36 nbtm=744) BASOPHILS ABSOLUTE COUNT (BEAKER) (test 0.06 K/ L 0.01-0.08 jrat=193) IMMATURE GRANULOCYTES-RELATIVE PERCENT (BEAKER) 1 % 0-1 (test vpwe=7461) PROTHROMBIN TIME/[id number] 11:22:00 Test Item Value Reference Range Comments PROTIME (BEAKER) (test syam=235) 15.7 seconds 11.7-14.7 INR (BEAKER) (test gizw=490) 1.3 <=5.9 RECOMMENDED COUMADIN/WARFARIN INR THERAPY RANGESSTANDARD DOSE: 2.0 - 3.0 Includes: PROPHYLAXIS forvenous thrombosis, systemic embolization; TREATMENT for venous thrombosis and/or pulmonary embolus.HIGH RISK: Target INR is 2.5-3.5 for patients with mechanical heart valves.CALCIUM, [id number] 11:06:00 Test Item Value Reference Range Comments CALCIUM IONIZED (BEAKER) (test hfvk=368) 1.25 mmol/L 1.12-1.27 PH, BLOOD (BEAKER) (test doft=0050) 7.37 HEPATITIS C [id number] 15:18:00 Test Item Value Reference Range Comments HEPATITIS C ANTIBODY (BEAKER) (test obbk=333) Nonreactive Nonreactive HEPATITIS B [id number] 15:18:00 Test Item Value Reference Range Comments HEPATITIS B CORE TOTAL ANTIBODY (BEAKER) (test Nonreactive Nonreactive pahd=010) HEPATITIS B SURFACE ANTIBODY (BEAKER) (test 63.1 mIU/mL <8.0 pqfh=932) HEPATITIS B SURFACE ANTIGEN (2) (BEAKER) (test Nonreactive Nonreactive jtuu=9046) HIV-1 ANTIGEN WITH HIV-1/2 [id number] 15:18:00 Test Item Value Reference Range Comments HIV-1 ANTIGEN WITH HIV 1\T\2 ANTIBODY (2) Nonreactive Nonreactive (BEAKER) (test syps=0234) [id number] 15:08:00 Test Item Value Reference Range Comments LIPASE (BEAKER) (test dfag=405) 10 U/L 8-78 [id number] 15:08:00 Test Item Value Reference Range Comments AMYLASE (BEAKER) (test rmbq=097) 40 U/L 25-125 BASIC METABOLIC [id number] 15:08:00 Test Item Value Reference Range Comments SODIUM (BEAKER) (test 141 meq/L 136-145 epic=242) POTASSIUM (BEAKER) (test 3.6 meq/L 3.5-5.1 pdzg=699) CHLORIDE (BEAKER) (test 104 meq/L 98-107 puyn=582) CO2 (BEAKER) (test 27 meq/L 22-29 ottf=058) BLOOD UREA NITROGEN 12 mg/dL 7-21 (BEAKER) (test ayuj=649) CREATININE (BEAKER) (test 0.86 mg/dL 0.57-1.25 chth=750) GLUCOSE RANDOM (BEAKER) 112 mg/dL 70-105 (test witt=481) CALCIUM (BEAKER) (test 9.8 mg/dL 8.4-10.2 wour=108) EGFR (BEAKER) (test 64 mL/min/1.73 sq m ESTIMATED GFR IS NOT xuey=4627) ACCURATE CREATININE CLEARANCE IN PREDICTING GLOMERULAR FILTRATION RATE. ESTIMATED GFR IS NOT APPLICABLE FOR DIALYSIS PATIENTS. HEPATIC FUNCTION [id number] 15:08:00 Test Item Value Reference Range Comments TOTAL PROTEIN (BEAKER) (test kmnd=962) 7.1 gm/dL 6.0-8.3 ALBUMIN (BEAKER) (test jvzr=0582) 4.0 g/dL 3.5-5.0 BILIRUBIN TOTAL (BEAKER) (test gzud=150) 0.4 mg/dL 0.2-1.2 BILIRUBIN DIRECT (BEAKER) (test pony=653) 0.2 mg/dL 0.1-0.5 ALKALINE PHOSPHATASE (BEAKER) (test bcvj=274) 135 U/L 40-150 AST (SGOT) (BEAKER) (test dxdn=560) 22 U/L 5-34 ALT (SGPT) (BEAKER) (test udgi=620) 22 U/L 6-55 LACTATE DEHYDROGENASE (LDH)2018-04-14 15:08:00 Test Item Value Reference Range Comments LACTATE DEHYDROGENASE (BEAKER) (test rhln=129) 238 U/L 125-220 [id number] 14:47:00 Test Item Value Reference Range Comments PARTIAL THROMBOPLASTIN TIME (BEAKER) (test 31.9 seconds 22.5-36.0 dwwk=315) PROTHROMBIN TIME/[id number] 14:46:00 Test Item Value Reference Range Comments PROTIME (BEAKER) (test mokw=827) 14.1 seconds 11.7-14.7 INR (BEAKER) (test ydcd=484) 1.1 <=5.9 RECOMMENDED COUMADIN/WARFARIN INR THERAPY RANGESSTANDARD DOSE: 2.0 - 3.0 Includes: PROPHYLAXIS forvenous thrombosis, systemic embolization; TREATMENT for venous thrombosis and/or pulmonary embolus.HIGH RISK: Target INR is 2.5-3.5 for patients with mechanical heart valves.RETICULOCYTE [id number] 14:36:00 Test Item Value Reference Range Comments RETICULOCYTE COUNT PCT (BEAKER) (test lryg=630) 1.0 % 0.5-1.7 CBC W/PLT COUNT & AUTO [id number] 14:36:00 Test Item Value Reference Range Comments WHITE BLOOD CELL COUNT (BEAKER) (test akxn=439) 9.3 K/ L 3.5-10.5 RED BLOOD CELL COUNT (BEAKER) (test ymrm=746) 4.05 M/ L 3.93-5.22 HEMOGLOBIN (BEAKER) (test nsaf=679) 12.2 GM/DL 11.2-15.7 HEMATOCRIT (BEAKER) (test dmeu=680) 37.2 % 34.1-44.9 MEAN CORPUSCULAR VOLUME (BEAKER) (test fjio=656) 91.9 fL 79.4-94.8 MEAN CORPUSCULAR HEMOGLOBIN (BEAKER) (test 30.1 pg 25.6-32.2 swuu=898) MEAN CORPUSCULAR HEMOGLOBIN CONC (BEAKER) (test 32.8 GM/DL 32.2-35.5 ksrf=235) RED CELL DISTRIBUTION WIDTH (BEAKER) (test 14.2 % 11.7-14.4 rkjk=650) PLATELET COUNT (BEAKER) (test lcfy=848) 259 K/CU MM 150-450 MEAN PLATELET VOLUME (BEAKER) (test idhx=577) 11.1 fL 9.4-12.3 NUCLEATED RED BLOOD CELLS (BEAKER) (test 0 /100 WBC 0-0 kgtd=298) NEUTROPHILS RELATIVE PERCENT (BEAKER) (test 70 % rfan=584) LYMPHOCYTES RELATIVE PERCENT (BEAKER) (test 19 % aviv=817) MONOCYTES RELATIVE PERCENT (BEAKER) (test 8 % ldac=797) EOSINOPHILS RELATIVE PERCENT (BEAKER) (test 2 % dugw=646) BASOPHILS RELATIVE PERCENT (BEAKER) (test 1 % xkns=208) NEUTROPHILS ABSOLUTE COUNT (BEAKER) (test 6.49 K/ L 1.56-6.13 tbdk=171) LYMPHOCYTES ABSOLUTE COUNT (BEAKER) (test 1.74 K/ L 1.18-3.74 fllg=102) MONOCYTES ABSOLUTE COUNT (BEAKER) (test 0.78 K/ L 0.24-0.36 lwwr=580) EOSINOPHILS ABSOLUTE COUNT (BEAKER) (test 0.14 K/ L 0.04-0.36 pmfl=238) BASOPHILS ABSOLUTE COUNT (BEAKER) (test 0.07 K/ L 0.01-0.08 jtbl=928) IMMATURE GRANULOCYTES-RELATIVE PERCENT (BEAKER) 0 % 0-1 (test fbyl=7361) URINALYSIS W/ [id number] 14:25:00 Test Item Value Reference Range Comments COLOR (BEAKER) (test xqcb=328) Yellow CLARITY (BEAKER) (test fahd=159) Clear SPECIFIC GRAVITY UA (BEAKER) (test vizv=236) 1.010 1.001-1.035 PH UA (BEAKER) (test lssb=883) 6.5 5.0-8.0 PROTEIN UA (BEAKER) (test qayx=888) 20 mg/dL Negative GLUCOSE UA (BEAKER) (test alut=626) Negative Negative KETONES UA (BEAKER) (test xvpa=523) Negative Negative BILIRUBIN UA (BEAKER) (test ybsh=419) Negative Negative BLOOD UA (BEAKER) (test ktmu=654) Negative Negative NITRITE UA (BEAKER) (test kmtg=080) Negative Negative LEUKOCYTE ESTERASE UA (BEAKER) (test ffgv=854) Negative Negative UROBILINOGEN UA (BEAKER) (test fuja=410) 0.2 mg/dL 0.2-1.0 RBC UA (BEAKER) (test iwvx=139) < /HPF WBC UA (BEAKER) (test vkpd=985) < /HPF MUCUS (BEAKER) (test kawt=4580) Rare SQUAMOUS EPITHELIAL (BEAKER) (test tsvq=843) < /HPF HYALINE CASTS (BEAKER) (test hkfz=757) 4 /LPF SOURCE(BEAKER) (test qjtu=2417) RAD, CHEST, 2 [id number] 14:12:00Reason for exam:->surgeryFINAL REPORT Chest, two views HISTORY: Surgery COMPARISON: None. DISCUSSION: Lungs are clear without focal consolidation. Cardiomediastinal silhouette is unremarkable. Tortuosityand ectasia of the thoracic aorta. No acute osseous abnormality. No pleural effusion or pneumothorax. Visualized portions of the upper abdomen are unremarkable. IMPRESSION: No acute cardiopulmonary abnormality. Signed: Gera Hernandez MDReport Verified Date/Time: 04/14/2018 14:12:09 Reading Location: [address] Radiology Reading Room 02:12 PM
--- OUTSIDE RECORDS SUMMARY | 2019-01-03 13:32 | XMS REPORT | Clinical Summary ---
:1940 Author Organization [facility] Address [address] [place] [address] Care Team Providers Name Role Phone Wally Soliman Primary Care Provider Raymundo Miller Unavailable Allergies Active Allergy Reactions Severity Noted Date Comments Hydrocodone-Acetaminophen Other (See Comments) 04/13/2018 hyperactivity Lisinopril 04/13/2018 angioedema Butorphanol Tartrate Other (See Comments) 04/14/2018 Hallucinations Zbpgfwn-Mpb-Elf Reductase Other (See Comments) 04/14/2018 Flu like [...] REPAIR,EVAR-ENDOVAS MD Nat CULAR AORTIC ANEURYSM 04/15/2018 Anesthesia Event Ravi Goel MD 04/15/2018 - Hospital Encounter Cardiology Arnaldo Avelar At high risk for 04/19/2018 MD Nat hemodynamic instability 04/14/2018 Hospital Encounter Arnaldo Avelar MD 04/14/2018 Hospital Encounter Cardiology Arnaldo Avelar MD 04/14/2018 Hospital Encounter Pre-Admission Arnaldo Avelar Thoracic aortic Testing MD Nat aneurysm without rupture (HCC) 04/14/2018 Outside Orders Arnaldo Avelar MD 04/13/2018 Orders Only Arnaldo Avelar Thoracic aortic MD Nat aneurysm without rupture (HCC) (Primary Dx) after 01/02/2018 Social History Tobacco Use Types Packs/Day Years [...] Not on file Implants Implanted Type Area Recovery Collector Device Shelf Model / Identifier Expiration Serial / Date Lot Zbigniew Iliac Aaa Leg 13x90 [id number] - [id number] CV Aneurysm Right: COOK:AORTIC 10/13/2020 [id number] / Implanted: Qty: 1 on 04/15/2018 by Arnaldo Avelar MD Groin INTERVENTION / [id number] Closure Sys Perclose Progl 6fr 22070-35 - [id number] Cardiovascular Left: WANG 11/18/2019 [id number] / Implanted: Qty: 1 on 04/15/2018 by Arnaldo Avelar MD Groin LAB: VAS DEV / [id number] Closure Sys Perclose Progl 6fr 20985-81 - [id number] Cardiovascular Left: WANG 01/18/2020 [id number] / Implanted: Qty: 1 on 04/15/2018 by Arnaldo Avelar MD Groin LAB: VAS DEV / [id number] Closure Sys Perclose Progl 6fr 04308-35 - [id number] Cardiovascular Right: WANG 11/18/2019 [id number] / Implanted: Qty: 1 on 04/15/2018 by Arnaldo Avelar MD Groin LAB: VAS DEV / [id number] Closure Sys Perclose Progl 6fr 06721-90 - [id number] Cardiovascular Right: WANG 11/18/2019 [id number] / Implanted: Qty: 1 on 04/15/2018 by Arnaldo Avelar MD Groin LAB: VAS DEV / [id number] Endovascular Graft N/A: [employer] [facility] 02/27/2020 [id number] / Implanted: Qty: 1 on 04/15/2018 by Arnaldo Avelar MD Groin / [id number] [id number] Iliac Leg Graft Right: [employer] [facility] 12/28/2020 [id number] / Implanted: Qty: 1 on 04/15/2018 by [...] CDT aneurysm without procedure are in rupture ([facility]) the results section. ECG 12-LEAD Routine 04/14/2018 1:13 PM CDT Procedure Note - Interface, External Ris In - 04/14/2018 5:19 PM CDT Ventricular Rate 56 BPM Atrial Rate 56 BPM P-R Interval 218 ms QRS Duration 70 ms Q-T Interval 428 ms QTC Calculation(Bazett) 413 ms P [place] 55 degrees R [place] -26 degrees T [place] 48 degrees Sinus bradycardia with 1st degree A-V block with Premature atrial complexes Voltage criteria for left ventricular hypertrophy Inferior infarct , age undetermined Anterolateral infarct , age undetermined Abnormal ECG No previous ECGs available ECG 12-LEAD Routine 04/14/2018 1:13 PM CDT Thoracic aortic Results for this aneurysm without procedure are in the rupture ([facility]) results section. after 01/02/2018 Results VASCULAR DIAGRAM -SCAN (04/21/2018 8:40 AM CDT) Narrative Performed At RHYTHM STRIP - SCAN (04/21/2018 8:40 AM CDT) Narrative Performed At XR chest 1 view portable / bedside (04/19/2018 9:48 AM CDT)Only the most recent of5 resultswithin the time period is included. Narrative Performed At FINAL REPORT [facility] Chest one view INDICATION: EVAR COMPARISON: [...] MD Report Verified Date/Time:04/19/2018 10:16:05 Reading Location: [facility] Radiology Reading Room Procedure Note Interface, External [...] Report Verified Date/Time: 04/19/2018 10:16:05 Reading Location: [facility] Radiology Reading Room Performing Organization Address [facility] Phone Number [facility] aPTT (04/19/2018 4:02 AM CDT)Only the most recent of5 resultswithin the time period is included. PTT 36.6 (H) 22.5 - 36.0 seconds [facility] Specimen Blood Performing Organization Address [facility] Phone Number [address] [address] [place] Prothrombin time/INR (04/19/2018 4:02 AM CDT)Only the most recent of6 resultswithin the time period is included. Protime 15.9 (H) 11.7 - 14.7 seconds [facility] INR 1.3 <=5.9 [facility] Specimen Blood Narrative Performed At [facility] RECOMMENDED COUMADIN/WARFARIN INR THERAPY RANGES STANDARD DOSE: 2.0 - 3.0 Includes: PROPHYLAXIS for venous thrombosis, systemic embolization; TREATMENT for venous thrombosis and/or pulmonary embolus. HIGH RISK: Target INR is 2.5-3.5 for patients with mechanical heart valves. Performing Organization Address [facility] Phone Number [address] [address] [place] CBC (Hemogram only) (04/19/2018 4:02 AM CDT)Only the most recent of4 resultswithin the time period is included. WBC 9.5 3.5 - 10.5 K/L [facility] RBC 3.64 (L) 3.93 - 5.22 M/L [facility] Hemoglobin 10.6 (L) 11.2 - 15.7 GM/DL [facility] Hematocrit 33.8 (L) 34.1 - 44.9 % [facility] MCV 92.9 79.4 - 94.8 fL [facility] MCH 29.1 25.6 - 32.2 pg [facility] MCHC 31.4 (L) 32.2 - 35.5 GM/DL [facility] RDW 14.1 11.7 - 14.4 % [facility] Platelets 232 150 - 450 K/CU MM [facility] MPV 10.9 9.4 - 12.3 fL [facility] nRBC 0 0 - 0 /100 WBC [facility] Specimen Blood Performing Organization Address City/[facility]/Zipcode Phone Number [address] [address] [phone] CENTER Phosphorus (04/19/2018 4:02 AM CDT)Only the most recent of5 resultswithin the time period is included. Phosphorus 4.0 2.3 - 4.7 mg/dL [facility] Specimen Blood Performing Organization Address City/[facility]/Zipcode Phone Number [address] [address] CENTER Magnesium (04/19/2018 4:02 AM CDT)Only the most recent of4 resultswithin the time period is included. Magnesium 2.2 1.6 - 2.6 mg/dL [facility] Specimen Blood Performing Organization Address City/[facility]/Zipcode Phone Number [address] [address] [phone] CENTER Basic Metabolic Panel (04/19/2018 4:02 AM CDT)Only the most recent of5 resultswithin the time period is included. Sodium 141 136 - 145 meq/L [facility] Potassium 3.6 3.5 - 5.1 meq/L [facility] Chloride 106 98 - 107 meq/L [facility] CO2 28 22 - 29 meq/L [facility] BUN 20 7 - 21 mg/dL [facility] Creatinine 0.87 0.57 - 1.25 mg/dL [facility] Glucose 122 (H) 70 - 105 mg/dL [facility] Calcium 9.0 8.4 - 10.2 mg/dL [facility] EGFR 63Comment: ESTIMATED GFR IS mL/min/1.73 sq m [facility] NOT ACCURATE CREATININE [facility] CENTER CLEARANCE IN PREDICTING GLOMERULAR FILTRATION RATE. ESTIMATED GFR IS NOT APPLICABLE FOR DIALYSIS PATIENTS. Specimen Blood Performing Organization Address City/State/Zipcode Phone Number [facility] [address] [place] [address] CENTER TRANSFUSION SERVICE REPORT - SCAN (04/15/2018 [...] MD Report Verified Date/Time:04/15/2018 12:39:57 Reading Location: [facility] Radiology Reading Room Procedure Note Interface, External [...] Report Verified Date/Time: 04/15/2018 12:39:57 Reading Location: [facility] Radiology Reading Room Performing Organization Address City/[facility]/Zipcode Phone Number RIS Calcium, Ionized (04/15/2018 11:06 AM CDT) Calcium, Ion 1.25 1.12 - 1.27 mmol/L [facility] pH, Blood 7.37 [facility] Specimen Blood Performing Organization Address [facility] Phone Number [place] [phone] [place] [address] CENTER CBC with platelet count + automated diff (04/15/2018 11:05 AM CDT)Only the most recent of2 resultswithin the time period is included. WBC 12.0 (H) 3.5 - 10.5 K/L [facility] RBC 3.84 (L) 3.93 - 5.22 M/L [facility] Hemoglobin 11.4 11.2 - 15.7 GM/DL [facility] Hematocrit 35.7 34.1 - 44.9 % [facility] MCV 93.0 79.4 - 94.8 fL [facility] MCH 29.7 25.6 - 32.2 pg [facility] MCHC 31.9 (L) 32.2 - 35.5 GM/DL [facility] RDW 14.1 11.7 - 14.4 % [facility] Platelets 207 150 - 450 K/CU MM [facility] MPV 10.7 9.4 - 12.3 fL [facility] nRBC 0 0 - 0 /100 WBC [facility] % Neutros 77 % [facility] % Lymphs 15 % [facility] % Monos 6 % [facility] % Eos 1 % [facility] % Baso 1 % [facility] # Neutros 9.14 (H) 1.56 - 6.13 K/L [facility] # Lymphs 1.78 1.18 - 3.74 K/L [facility] # Monos 0.72 (H) 0.24 - 0.36 K/L [facility] # Eos 0.16 0.04 - 0.36 K/L [facility] # Baso 0.06 0.01 - 0.08 K/L [facility] Immature Granulocytes-Relative 1 0 - 1 % [facility] Specimen Blood Performing Organization Address City/State/Zipcode Phone Number [address] [address] [phone] [place] POC ACTIVATED CLOTTING TIME (04/15/2018 9:02 AM CDT) Activated Clotting Time 257Comment: TESTED AT sec [address] [address] Specimen Blood Performing Organization Address City/State/Zipcode Phone Number [address] [address] [phone] [place] XR chest 2 views (04/14/2018 1:39 PM [...] MD Report Verified Date/Time:04/14/2018 14:12:09 Reading Location: [address] Radiology Reading Room Procedure Note Interface, [...] Report Verified Date/Time: 04/14/2018 14:12:09 Reading Location: [address] Radiology Reading Room Performing Organization Address City/State/Zipcode Phone Number [facility] Urinalysis w/Microscopic (04/14/2018 1:18 PM CDT) Color, UA Yellow [facility] Clarity, UA Clear [facility] Specific Dennis, UA 1.010 1.001 - 1.035 [facility] pH, UA 6.5 5.0 - 8.0 [facility] Protein, UA 20 mg/dL (A) Negative [facility] Glucose, UA Negative Negative [facility] Ketones, UA Negative Negative [facility] Bilirubin, UA Negative Negative [facility] Blood, UA Negative Negative [facility] Nitrite, UA Negative Negative [facility] Leukocytes, UA Negative Negative [facility] Urobilinogen, UA 0.2 0.2 - 1.0 mg/dL [facility] RBC, UA <1 /HPF [facility] WBC, UA <1 /HPF [facility] Mucus Rare [facility] Squam Epithel, UA <1 /HPF [facility] Hyaline Casts, UA 4 /LPF [facility] Specimen Source [facility] Specimen Urine Performing Organization Address City/State/[facility] Phone Number [address] [address] CENTER Type and screen, automated (04/14/2018 1:17 PM CDT) ABO/RH AUTOMATED (BEAKER) A POSITIVE [facility] Ab Scrn NEGATIVE [facility] Specimen Blood Performing Organization Address City/[facility] Cent[facility] Phone Number [address] [address] HIV-1 Antigen with HIV-1/2 Antibody (04/14/2018 1:17 PM CDT) HIV-1 Antigen with HIV 1&2 NON-REACTIVE Nonreactive [facility] Specimen Blood Performing Organization Address City/[facility] Phone Number [address] [address] CENTER Hepatitis B Panel (04/14/2018 1:17 PM CDT) Hep B Core Total Ab NON-REACTIVE Nonreactive [facility] Hep B S Ab 63.1 (H) <8.0 mIU/mL [facility] hepatitis B Surface Ag NON-REACTIVE Nonreactive [facility] Specimen Blood Performing Organization Address [facility] Phone Number [address] [address] CENTER Hepatitis C antibody (04/14/2018 1:17 PM CDT) Hepatitis C Ab NON-REACTIVE Nonreactive [facility] Specimen Blood Performing Organization Address [facility] Phone Number [address] [address] [phone] [place] Reticulocyte count (04/14/2018 1:17 PM CDT) % Retic 1.0 0.5 - 1.7 % [facility] Specimen Blood Performing Organization Address City/[facility] Cent[facility] Phone Number [address] [address] [phone] CENTER Lipase (04/14/2018 1:17 PM CDT) Lipase 10 8 - 78 U/L [facility] Specimen Blood Performing Organization Address [facility] Phone Number [address] [address] [place] Lactate dehydrogenase (LDH) (04/14/2018 1:17 PM CDT) LDH 238 (H) 125 - 220 U/L [facility] Specimen Blood Performing Organization Address [facility] Phone Number [address] [address] CENTER Amylase (04/14/2018 1:17 PM CDT) Amylase 40 25 - 125 U/L [facility] Specimen Blood Performing Organization Address [facility] Phone Number [address] [address] [place] Hepatic function panel (04/14/2018 1:17 PM CDT) Protein, Total 7.1 6.0 - 8.3 gm/dL [facility] Albumin 4.0 3.5 - 5.0 g/dL [facility] Total Bilirubin 0.4 0.2 - 1.2 mg/dL [facility] Bilirubin, Direct 0.2 0.1 - 0.5 mg/dL [facility] Alkaline Phosphatase 135 40 - 150 U/L [facility] AST 22 5 - 34 U/L [facility] ALT 22 6 - 55 U/L [facility] Specimen Blood Performing Organization Address City/State/Zipcode Phone Number [facility] [address] [place] [address] CENTER ECG 12 lead (04/14/2018 1:13 PM CDT) Narrative Performed At Ventricular Rate 56 BPM GE MUSE Atrial Rate 56 BPM P-R Interval 218 ms QRS Duration 70 ms Q-T Interval 428 ms QTC Calculation(Bazett) 413 ms P [place] 55 degrees R [place] -26 degrees T [place] 48 degrees Sinus bradycardia with 1st degree [...] 428 ms QTC Calculation(Bazett) 413 ms P [place] 55 degrees R [place] -26 degrees T [place] 48 degrees Sinus bradycardia with 1st degree A-V block with Premature atrial complexes Voltage criteria for left ventricular hypertrophy Inferior infarct , age undetermined Anterolateral infarct , age undetermined Abnormal ECG No previous ECGs available Confirmed by MD JOHNSON JOSEPH P ([id number]) on 04/15/2018 5:58:45 AM Performing Organization Address City/State/Zipcode Phone Number MONIE MUSE after 01/02/2018 Insurance Payer Benefit Plan / Group Subscriber ID Type Phone Address MEDICARE MEDICARE A B xxxxxxxxxx Medicare MCR SUPPLEMENT/INDIVIDUAL [employer] xxxxxxxx [facility] [address] [place] (Home) [place] [phone] Advance Directives For more information, please contact:[address] [phone] Code Status Date Activated Date Inactivated Comments Full Code 04/15/2018 10:55 AM 04/19/2018 6:23 PM This code status was determined by: Patient Full Code 04/15/2018 6:03 AM 04/15/2018 10:55 AM This code status was determined by: Patient
[2019-01-03] MEDS ORDERED: ALPRAZOLAM 0.5 MG TABLET PO PRN (13:45)
[2019-01-03] MEDS ORDERED: NA CHLORIDE 0.9% 1,000 ML IV SCH (14:00)
[2019-01-03 14:05] VITALS: BMI 20.3
[2019-01-03 14:42] LABS: Absolute Lymphocytes (CBC) 1.3 K/uL (0.7-4.9); Absolute Monocytes 0.7 K/uL (0.1-1.3); Absolute Neutrophil 6.5 K/uL (1.8-8.0); Basophils % 0.9 % (0-1.3); Hematocrit 28.5 % (36.0-45.0); Lymphocytes % 15.5 % (15.3-44.8); MPV 8.1 fL (7.6-11.3); Monocytes % 7.5 % (3.3-12.3); RBC Red Blood Cell Count 3.56 M/uL (3.86-4.86)
[2019-01-03 15:11] LABS: BUN Blood Urea Nitrogen 16 mg/dL (7-18); Bicarbonate 27 mmol/L (21-32); Glucose Level 119 mg/dL (74-106); Magnesium 2.2 mg/dL (1.8-2.4); Potassium 4.2 mmol/L (3.5-5.1); Sodium Level 141 mmol/L (136-145); Troponin I < 0.02 ng/mL (0.0-0.045)
[2019-01-03] MEDS: ENOXAPARIN 30 MG/0.3 ML SQ SCH (16:25)
[2019-01-03 16:37] LABS: Urine Appearance CLEAR; Urine Bilirubin NEGATIVE (NEG); Urine Blood NEGATIVE (NEG); Urine Color YELLOW; Urine Glucose NEGATIVE (NEG); Urine Protein NEGATIVE (NEG); Urine Specific Gravity <=1.005 (1.005-1.030); Urine Urobilinogen 0.2 mg/dL (0.2-1.0)
[2019-01-03 16:38] LABS: Urine Microscopic Reflex NO UMIC
[2019-01-03] MEDS: NA CHLORIDE 0.9% 1,000 ML IV SCH (21:55)
[2019-01-04 05:00] LABS: Absolute Lymphocytes (CBC) 1.5 K/uL (0.7-4.9); Absolute Monocytes 0.8 K/uL (0.1-1.3); Absolute Neutrophil 4.8 K/uL (1.8-8.0); Basophils % 0.8 % (0-1.3); Eosinophils % 2.5 % (0-4.4); Hematocrit 26.2 % (36.0-45.0); Lymphocytes % 19.7 % (15.3-44.8); MPV 8.2 fL (7.6-11.3); Monocytes % 11.4 % (3.3-12.3); RBC Red Blood Cell Count 3.26 M/uL (3.86-4.86)
[2019-01-04 05:11] LABS: ALT/SGPT 16 U/L (12-78); AST/SGOT 10 U/L (15-37); Albumin 2.5 g/dL (3.4-5.0); Alkaline Phosphatase 108 U/L (45-117); Amylase Level 29 U/L (25-115); BUN Blood Urea Nitrogen 15 mg/dL (7-18); Bicarbonate 25 mmol/L (21-32); Bilirubin Direct < 0.1 mg/dL (0-0.2); Bilirubin Total 0.3 mg/dL (0.2-1.0); Glucose Level 133 mg/dL (74-106); Lipase 65 U/L (73-393); Potassium 4.2 mmol/L (3.5-5.1); Protein, Total 6.1 g/dL (6.4-8.2); Sodium Level 143 mmol/L (136-145)
--- NOTE | 2019-01-04 08:28 | EKG ---
Test Date: 2019-01-04 Test Time: 08:08:13 Network Liaison: MORAIMA MEASUREMENT RESULTS: Intervals: Rate: 52 MN: 236 QRSD: 80 QT: 434 QTc: 403 [place]: P: 49 MN: 236 QRS: 1 T: 88 INTERPRETIVE STATEMENTS: Sinus bradycardia with 1st degree AV block Otherwise normal ECG Compared to ECG 07/17/2018 17:41:15 First degree AV block now present Left ventricular hypertrophy no longer present Myocardial infarct finding no longer present Electronically Signed On 01-04-19 08:28:03 CDT by Pawel Michel
[2019-01-04] MEDS: FAMOTIDINE 20 MG TAB PO SCH (08:31)
[2019-01-04] MEDS: PARoxetine HCl 10 MG TAB PO SCH (08:31)
--- NOTE | 2019-01-04 09:39 | RAD REPORT ---
EXAM DESCRIPTION: RAD - Chest Pa And Lat (2 Views) - 01/04/2019 9:13 am CLINICAL HISTORY: palpitations hosp admission likely afib Chest pain. COMPARISON: Chest Single View dated 07/17/2018; CHEST SINGLE VIEW dated 10/16/2015; CHEST SINGLE VIEW dated 03/12/2015; CHEST SINGLE VIEW dated 02/27/2015 FINDINGS: The lungs are hyperexpanded but clear. The heart is normal in size. Tortuous thoracic aort a noted. Abdominal aorta stent material is seen. IMPRESSION: No acute intrathoracic abnormality detected.
[2019-01-04] MEDS: PANTOPRAZOLE 40 MG INJ IV SCH (09:55)
[2019-01-04] MEDS: SODIUM CHLORIDE 0.9% 10ML INJ IV SCH (09:55)
[2019-01-04] MEDS: NA CHLORIDE 0.9% 1,000 ML IV SCH (11:23)
--- NOTE | 2019-01-04 13:12 | CON ---
Ms. Sheikh is 78. She started feeling bad yesterday, called Dr. Soliman's office. Dr. Soliman came to the hospital, placed her in the hospital. Her complaints were feeling bad all over, weak all ove r and feeling her heart flutter and flip flop and being irregular. She has not had an EKG and on tel emetry she has been in sinus rhythm. The patient does not have a history of cardiac arrhythmia. 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 She has had it once 7 years ago. All of h er CAT scans we have on her do not show any residual from that. She had an abdominal aortic aneurysm repair by Dr. Avelar roughly a year ago. She has never had myocardial infarction, stroke, any vasc ular interventions other than aortic aneurysm repair. She has a lot of emotional distress going on h er. Her son was arrested for selling drugs, was in [facility], now out on [place], and wrangling with a lot o f legal difficulties. Allergies: SHE IS ALLERGIC TO ACETAMINOPHEN, BUTORPHANOL, HYDROCODONE, AND LISINOPRIL. Medications: Her outpatient medications have included clonidine patch, alprazolam, famotidine, parox etine. She uses no tobacco, did remotely. Physical Examination: General: She appears to be in her stated age. Alert, oriented, pleasant, not in distress. Lungs: Clear. Heart: Within normal limits. Abdomen: Soft. Extremities: Normal. Distal pulses diminished but palpable. Impression: The patient had some kind of cardiac arrhythmia, most likely. Nothing has been recorded . No emergency medical recordings or ER recordings. No EKG, just telemetry strips for now. Then I asked her to get an echocardiogram, EKG, probably wear an event monitor and see if we should consider antiarrhythmic drug therapy and anticoagulation. So far, the diagnosis of atrial fibrillation is speculative and we would not initia te any drug therapy based on that. DARLENE/VINICIO Voice ID: [id number] Report ID: [id number]
[2019-01-04] MEDS ORDERED: D50W 25 GM/50 ML SYRINGE IV PRN (16:29)
[2019-01-04] MEDS ORDERED: GLUCAGON 1 MG/VIAL IM PRN (16:29)
[2019-01-04] MEDS: INSULIN -REGULAR HUMAN 50 UNIT/0.5 ML ML SQ SCH ×2 (16:30→20:33)
[2019-01-04] MEDS: ENOXAPARIN 30 MG/0.3 ML SQ SCH (17:02)
--- NOTE | 2019-01-04 17:40 | ECHO ---
HEIGHT: 5 ft 7 in WEIGHT: 130 lb 0 oz DATE OF STUDY: 01/04/[address]: Pawel Michel MD 2-DIMENSIONAL: YES M.MODE: YES DOPPLER: YES COLOR FLOW: YES TDS: PORTABLE: DEFINITY: BUBBLE STUDY: DIAGNOSIS: PALPITATIONS CARDIAC HISTORY: CATHERIZATION: NO SURGERY: NO PROSTHETIC VALVE: NO PACEMAKER: NO MEASUREMENTS (cm) DIASTOLIC (NORMALS) SYSTOLIC (NORMALS) IVSd 1.0 (0.6-1.2) LA Diam 3.9 (1.9-4.0) LVEF 67% LVIDd 5.1 (3.5-5.7) LVIDs 3.2 (2.0-3.5) %FS 37% LVPWd 1.1 (0.6-1.2) Ao Diam 3.0 (2.0-3.7) 2 DIMENSIONAL ASSESSMENT: RIGHT ATRIUM: NORMAL LEFT ATRIUM: NORMAL RIGHT VENTRICLE: NORMAL LEFT VENTRICLE: NORMAL TRICUSPID VALVE: NORMAL MITRAL VALVE: NORMAL PULMONIC VALVE: NORMAL AORTIC VALVE: NORMAL PERICARDIAL EFFUSION: NONE AORTIC ROOT: NORMAL LEFT VENTRICULAR WALL MOTION: NORMAL DOPPLER/COLOR FLOW: MILD TRICUSPID REGURGITATION. NORMAL RIGHT VENTRICULAR SYSTOLIC PRESSURE. COMMENTS: NORMAL TWO DIMENSIONAL ECHOCARDIOGRAM WITH DOPPLER. TECHNOLOGIST: NEREYDA RÍOS
[2019-01-04] MEDS: ALPRAZOLAM 0.25 MG TABLET PO PRN (21:02)
[2019-01-05] MEDS: NA CHLORIDE 0.9% 1,000 ML IV SCH ×2 (00:32→14:00)
[2019-01-05 04:17] LABS: Absolute Lymphocytes (CBC) 1.7 K/uL (0.7-4.9); Absolute Monocytes 0.8 K/uL (0.1-1.3); Absolute Neutrophil 4.9 K/uL (1.8-8.0); Basophils % 0.8 % (0-1.3); Eosinophils % 2.9 % (0-4.4); Hematocrit 26.3 % (36.0-45.0); Lymphocytes % 21.8 % (15.3-44.8); MPV 8.1 fL (7.6-11.3); Monocytes % 10.4 % (3.3-12.3); RBC Red Blood Cell Count 3.33 M/uL (3.86-4.86)
[2019-01-05 04:59] LABS: Blood Morphology Comment NOT SEEN (NOT SEEN); Platelet Estimate ADEQ
[2019-01-05 05:00] LABS: Folic Acid, (Folate) 5.1 ng/mL (3.1-17.5)
[2019-01-05] MEDS: INSULIN -REGULAR HUMAN 50 UNIT/0.5 ML ML SQ SCH ×4 (07:30→20:40)
[2019-01-05] MEDS: SODIUM CHLORIDE 0.9% 10ML INJ IV SCH (09:00)
[2019-01-05] MEDS: PANTOPRAZOLE 40 MG INJ IV SCH (09:00)
[2019-01-05] MEDS: PARoxetine HCl 10 MG TAB PO SCH (09:44)
[2019-01-05] MEDS: FAMOTIDINE 20 MG TAB PO SCH (09:44)
--- NOTE | 2019-01-05 10:20 | RAD REPORT ---
EXAM DESCRIPTION: CT - Abdomen Pelvis W Contrast - 01/05/2019 9:36 am CLINICAL HISTORY: GI bleed, abdominal pain, weakness, history of triple a repair COMPARISON: CT abdomen January 07, 2018 TECHNIQUE: Biphasic, helical CT imaging of the abdomen and pelvis was performed following 100 ml non -ionic IV contrast. Oral contrast was given. All CT scans are performed using dose optimization technique as appropriate and may include automated exposure control or mA/KV adjustment according to patient size. FINDINGS: No suspicious findings in the lung bases. Multiple cysts are identified in the liver similar to the December 2017 study. No suspicious liver findi ng. Spleen and pancreas show no acute finding and no clear change from the prior CT. Slight heterogen eity in the head of the pancreas has not changed. Partially filled gallbladder shows no suspicious fi ndings. Gallstones can be occult on CT imaging. No abnormal biliary tree dilatation. Symmetric renal function is seen with no hydronephrosis or suspicious renal mass. No pyelonephritis o r acute parenchymal process. Partially contracted urinary bladder shows no suspicious finding. There is significant pelvic floor laxity evident. No adrenal abnormalities. No gastric dilatation or wall thickening. No acute small bowel finding. Oral CT contrast has reached the transverse colon. Moderate stool volume fills the left side of the colon. There is a 3- 3.5 centi meter masslike density along the posterior wall of the rectum near the anal verge. The patient was im aged with her hips flexed which can accentuate bowel wall thickening. However, in a patient with a GI bleed history, distal rectal or perianal mass is suspected. This is likely within reach of digital e xamination. No other evidence for a colon mass. No diverticulitis or colitis findings. No free air, free fluid or inflammatory stranding. No hernia, mass or bulky lymphadenopathy. Disc and bony degenerative changes are present. Endovascular stenting is in place. Minimal amount of contrast is seen in the dilated distal aorta arnie ng the posterior margin of the stent. This is near the proximal portion of the iliac components of th e stenting. No contrast, mass, fluid or other finding outside of the [place] wall of the aorta. IMPRESSION: Possible 3- 3.5 centimeter mass along the posterior wall of the rectum near the anus. No other acute GI process identifiable. Suspected small endoleak along the posterior wall at the junction between the aortic and iliac portio ns of the stent. This possible leak is contained within the [place] aorta. No periaortic acute findi ng.
[2019-01-05] MEDS: ENOXAPARIN 30 MG/0.3 ML SQ SCH (17:00)
[2019-01-05] MEDS: ALPRAZOLAM 0.25 MG TABLET PO PRN (20:40)
[2019-01-06] MEDS: INSULIN -REGULAR HUMAN 50 UNIT/0.5 ML ML SQ SCH ×2 (07:30→11:30)
[2019-01-06] MEDS: PARoxetine HCl 10 MG TAB PO SCH (07:59)
[2019-01-06] MEDS: FAMOTIDINE 20 MG TAB PO SCH (07:59)
[2019-01-06] MEDS: PANTOPRAZOLE 40 MG INJ IV SCH (08:00)
[2019-01-06] MEDS: SODIUM CHLORIDE 0.9% 10ML INJ IV SCH (08:00)
[2019-01-06 12:28] VITALS: BP 136/65; TEMP 97.8
[2019-01-06 12:38] VITALS: O2SAT 96
--- NOTE | 2019-01-07 07:02 | PN ---
The patient was admitted on 01/03/2019. She has been followed by Dr. Michel intermittently. The pat kishore is a patient of Dr. Soliman. She came in with an arrhythmia, unknown type. So far on telemetry , we have not seen any evidence of atrial fibrillation. CT of the abdomen showed a perirectal mass, a small leak inside the aorta. She is status post abdominal aortic aneurysm endograft. Echocardiogr am was normal. She remains in sinus bradycardia at rate of 53. A colonoscopy is planned. She is cl eared to have the colonoscopy from our standpoint. We will eventually have her do an outpatient even t monitor, after she gets discharged. No anticoagulation recommended at this point. SUDHIR/VINICIO Voice ID: [id number] Report ID: [id number]
--- NOTE | 2019-01-07 07:54 | PN ---
Date of Progress Note: 01/05/2019 Subjective: The patient states she is starting to feel better. She can now eat. Her appetite has i mproved. Her hydration has also improved. Creatinine also dropped after the IV fluids and the telem etry was negative. She was seen by cardiology who felt that no significant change needed to be made in her medication. However, the CT scan did reveal a possibility of a mass in the rectal area and th is was not confirmed by physical exam and she will be monitored overnight. IV was discontinued and t olerated food. Since her H and H is stable, she should be able to be discharged. HR/MODL Voice ID: [id number] Report ID: [id number]
--- NOTE | 2019-01-07 07:56 | HP ---
Date of Admission: 01/03/2019 Entrance Complaint: Fatigue and weakness. History Of Present Illness: The patient presented to the office complaining increased fatigue over t he past few weeks. However, the day she was seen in the office was more marked than usual. She also had some chest discomfort and shortness of breath. She was therefore evaluated. She looked rather pale and in view of hydration problem and obvious anemia, I decided to admit her for more intensive c are. Associated with this today, when seen in the office, she stated over the past few hours, she has had some irregular beats, which is not a normal pattern for her. Past Medical History: The patient had AAA about a year ago that had some unstable blood pressure rosanne burden since then. However, she was hospitalized back in July, at which time she was not anemic a nd once her blood pressure was stable she was discharged. No prior history of anemia. The patient h as been under considerable stress with family. Social History: Nonsmoker and nondrinker. Family History: Noncontributory. Physical Examination: General: Patient is a pale elderly female. Vital Signs: Stable vital signs. Head and Neck: Normocephalic. Pupils equal, react to light and accommodation. Fundi negative. Trach ea midline. Thyroid not palpable. ENT negative. Chest: Clear to P and A. Cardiovascular: PMI in midclavicular line. Heart: Sounds normal. Peripheral pulses are present and equal bilaterally. Abdomen: No organomegaly. Bowel sounds present. Extremities: Moderately dehydrated. Good tone and movement bilaterally. Reflexes physiologic. Rectal: Deferred. Impression: Anemia, dehydration, cardiac arrhythmia. Plan: Patient will be admitted, placed on IV fluids. Cardiology will be consulted depending on furt her blood tests. Further testing may be required. HR/MODL Voice ID: [id number]
--- NOTE | 2019-01-07 08:09 | PN ---
Date of Progress Note: 01/06/2019 Subjective: The patient continues to feel somewhat better as far as her appetite in the eating is co ncerned. Hydration is stable. Her H and H are stable. I have a note that her hemoglobin is just ov er 8 and back in July, she was hospitalized with hypertension, it was over 11, postop following h er AAA was in 11 range as well, so it is unlikely even though there was a possibility of a bleed this late after the procedure that it was a GI problem and the fact this was confirmed with her stool gua iac. She should be of be discharged in the a.m. for outpatient endoscopies. HR/MODL Voice ID: [id number] Report ID: [id number]
--- NOTE | 2019-01-07 08:11 | PN ---
Date of Progress Note: 01/06/2019 She is stable. Bowel movements normal. However, there has been no problem with them prior to admiss ion either and she was discharged on Protonix and Pepcid, to follow up with myself and Dr. Ballard for endoscopy once I clear the CT findings with Dr. Avelar. HR/MODL Voice ID: [id number] Report ID: [id number]
[2019-01-07] MEDS ORDERED: CLONIDINE 0.2 MG/PATCH TD SCH (20:00)
== END 2019-01-06 13:51 | disposition home or self-care (01) ==
LOC: 4TH 13:24
PROVIDERS: ADMIT Family Medicine; ATTEND Family Medicine
DX: D64.9 Anemia, unspecified (principal); E86.0 Dehydration; I49.9 Cardiac arrhythmia, unspecified; R00.1 Bradycardia, unspecified; K62.89 Other specified diseases of anus and rectum; Z86.79 Personal history of other diseases of the circulatory system
CPT/HCPCS: 93005; 93306; 87088; 85025 ×3; 80048 ×2; 36415 ×2; 82150; 83735 ×2; 82274 ×2; 80061; 82962 ×8; 80076; 81003; 84484; 82746; 82607; 83690; 83540; 84466; 74177; 71046; Q9967; C9113 ×3; J1650 ×2; J7030 ×4; G0378 ×2; 87086

== ENCOUNTER 2019-01-15 09:46 | Emergency (ER) | payer OTHER ==
--- OUTSIDE RECORDS SUMMARY | 2019-01-15 09:49 | XMS REPORT | Clinical Summary ---
:1940 Author Organization [facility] Address [address] [place] [address] Care Team Providers Name Role Phone Wally Soliman Primary Care Provider Raymundo Miller Unavailable Allergies Active Allergy Reactions Severity Noted Date Comments Hydrocodone-Acetaminophen Other (See Comments) 04/13/2018 hyperactivity Lisinopril 04/13/2018 angioedema Butorphanol Tartrate Other (See Comments) 04/14/2018 Hallucinations Sxfaedv-Piw-Yqk Reductase Other (See Comments) 04/14/2018 Flu like [...] Orders Arnaldo Avelar MD 04/13/2018 Orders Only Arnlado Avelar Thoracic aortic MD Nat aneurysm without rupture (HCC) (Primary Dx) after 01/14/2018 Social History Tobacco Use Types Packs/Day Years [...] Not on file Implants Implanted Type Area Skein Yard Drier Device Shelf Model / Identifier Expiration Serial / Date Lot Zbigniew Iliac Aaa Leg 13x90 [id number] - [id number] CV Aneurysm Right: COOK:AORTIC 10/13/2020 [id number] / Implanted: Qty: 1 on 04/15/2018 by Arnaldo Avelar MD Groin INTERVENTION / [id number] Closure Sys Perclose Progl 6fr [id number] - [id number] Cardiovascular Left: WANG 11/18/2019 [id number] / Implanted: Qty: 1 on 04/15/2018 by Arnaldo Avelar MD Groin LAB: VAS DEV / [id number] Closure Sys Perclose Progl 6fr 49067-32 - [id number] Cardiovascular Left: WANG 01/18/2020 [id number] / Implanted: Qty: 1 on 04/15/2018 by Arnaldo Avelar MD Groin LAB: VAS DEV / [id number] Closure Sys Perclose Progl 6fr 70837-65 - [id number] Cardiovascular Right: WANG 11/18/2019 [id number] / Implanted: Qty: 1 on 04/15/2018 by Arnaldo Avelar MD Groin LAB: VAS DEV / [id number] Closure Sys Perclose Progl 6fr 63571-27 - [id number] Cardiovascular Right: WANG 11/18/2019 [id number] / Implanted: Qty: 1 on 04/15/2018 by Arnaldo Avelar MD Groin LAB: VAS DEV / [id number] Endovascular Graft N/A: [employer] [facility] 02/27/2020 [id number] / Implanted: Qty: 1 on 04/15/2018 by Arnaldo Avelar MD Groin / [id number] Iliac Leg Graft Right: [employer] [facility] 12/28/2020 [id number] / Implanted: Qty: 1 on 04/15/2018 by Arnaldo Avelar MD Groin / Procedures Procedure Name Priority Date/Time Associated Comments Diagnosis RHYTHM STRIP - SCAN 01/05/2019 9:21 AM CDT VASCULAR DIAGRAM -SCAN 04/21/2018 8:40 AM CDT [...] are in rupture (HCC) the results section. ECG 12-LEAD Routine 04/14/2018 1:13 PM CDT Procedure Note - Interface, External Ris In - 04/14/2018 5:19 PM CDT Ventricular Rate 56 BPM Atrial Rate 56 BPM P-R Interval 218 ms QRS Duration 70 ms Q-T Interval 428 ms QTC Calculation(Bazett) 413 ms P [place] 55 degrees R [place] -26 degrees T [place] 48 degrees Sinus bradycardia with 1st degree A-V block with Premature atrial complexes Voltage criteria for left ventricular hypertrophy Inferior infarct , age undetermined Anterolateral infarct , age undetermined Abnormal ECG No previous ECGs available ECG 12-LEAD Routine 04/14/2018 1:13 PM CDT Thoracic aortic Results for this aneurysm without procedure are in the rupture (HCC) results section. after 01/14/2018 Results RHYTHM STRIP - SCAN (01/05/2019 9:21 AM CDT)Only the most recent of2 resultswithin the time period is included. Narrative Performed At VASCULAR DIAGRAM -SCAN (04/21/2018 8:40 AM CDT) Narrative Performed At XR chest 1 view portable / bedside (04/19/2018 9:48 AM CDT)Only the most recent of5 resultswithin the time period is included. Specimen Narrative Performed At FINAL REPORT [facility] Chest one view INDICATION: EVAR COMPARISON: [...] MD Report Verified Date/Time:04/19/2018 10:16:05 Reading Location: [facility] Radiology Reading Room Procedure Note Interface, [...] Report Verified Date/Time: 04/19/2018 10:16:05 Reading [facility] [place] [facility] Reading Room Performing Organization Address [facility] CenterSmartStudy.commi Phone Number [facility] aPTT (04/19/2018 4:02 AM CDT)Only the most recent of5 resultswithin the time period is included. PTT 36.6 (H) 22.5 - 36.0 seconds [facility] Specimen Blood Performing Organization Address [facility] CenterTotalTakeout Phone Number [address] [address] CENTER Prothrombin time/INR (04/19/2018 4:02 AM CDT)Only the most recent of6 resultswithin the time period is included. Protime 15.9 (H) 11.7 - 14.7 seconds [facility] INR 1.3 <=5.9 [facility] Specimen Blood Narrative Performed At [facility] RECOMMENDED COUMADIN/WARFARIN INR THERAPY RANGES STANDARD DOSE: 2.0 - 3.0 Includes: PROPHYLAXIS for venous thrombosis, systemic embolization; TREATMENT for venous thrombosis and/or pulmonary embolus. HIGH RISK: Target INR is 2.5-3.5 for patients with mechanical heart valves. Performing Organization Address [facility]/[place] Phone Number [address] [address] CENTER CBC (Hemogram only) (04/19/2018 4:02 AM CDT)Only the most recent of4 resultswithin the time period is included. WBC 9.5 3.5 - 10.5 K/L [facility] RBC 3.64 (L) 3.93 - 5.22 M/L [facility] Hemoglobin 10.6 (L) 11.2 - 15.7 GM/DL [facility] Hematocrit 33.8 (L) 34.1 - 44.9 % [facility] MCV 92.9 79.4 - 94.8 fL [facility] MCH 29.1 25.6 - 32.2 pg [facility] MCHC 31.4 (L) 32.2 - 35.5 GM/DL [facility] RDW 14.1 11.7 - 14.4 % [facility] Platelets 232 150 - 450 K/CU MM [facility] MPV 10.9 9.4 - 12.3 fL [facility] nRBC 0 0 - 0 /100 WBC [facility] Specimen Blood Performing Organization Address City/[facility] Centercode Phone Number [address] [address] [phone] CENTER Phosphorus (04/19/2018 4:02 AM CDT)Only the most recent of5 resultswithin the time period is included. Phosphorus 4.0 2.3 - 4.7 mg/dL [facility] Specimen Blood Performing Organization Address City/[facility]/Zipcode Phone Number [address] [address] CENTER Magnesium (04/19/2018 4:02 AM CDT)Only the most recent of4 resultswithin the time period is included. Magnesium 2.2 1.6 - 2.6 mg/dL [facility] Specimen Blood Performing Organization Address City/[facility]/Zipcode Phone Number [facility] [address] [place] [address] [place] Basic Metabolic Panel (04/19/2018 4:02 AM CDT)Only the most recent of5 resultswithin the time period is included. Sodium 141 136 - 145 meq/L [facility] Potassium 3.6 3.5 - 5.1 meq/L [facility] Chloride 106 98 - 107 meq/L [facility] CO2 28 22 - 29 meq/L [facility] BUN 20 7 - 21 mg/dL [facility] Creatinine 0.87 0.57 - 1.25 mg/dL [facility] Glucose 122 (H) 70 - 105 mg/dL [facility] Calcium 9.0 8.4 - 10.2 mg/dL [facility] EGFR 63Comment: ESTIMATED GFR IS mL/min/1.73 sq m [facility] NOT ACCURATE CREATININE [facility] CLEARANCE IN PREDICTING GLOMERULAR FILTRATION RATE. ESTIMATED GFR IS NOT APPLICABLE FOR DIALYSIS PATIENTS. Specimen Blood Performing Organization Address City/State/Zipcode Phone Number [facility] [address] [place] [address] [place] TRANSFUSION SERVICE REPORT - SCAN (04/15/2018 5:54 PM CDT) Narrative Performed At XR abdomen / KUB 1 view (04/15/2018 11:46 AM CDT) Specimen Narrative Performed At FINAL REPORT [employer] CLINICAL HISTORY: Postop AAA TECHNIQUE: Supine abdomen COMPARISON: None IMPRESSION: The bowel gas pattern is nonspecific. Free air and air-fluid levels are not seen but cannot be definitively excluded on the supine view. There is vicarious excretion of contrast in the bilateral nephroureteral collecting systems. There is an aortobiiliac stent. Signed: Hardik Godwin MD Report Verified Date/Time:04/15/2018 12:39:57 Reading Location: [facility] Radiology Reading Room Procedure Note Interface, [...] Report Verified Date/Time: 04/15/2018 12:39:57 Reading Location: [facility] Radiology Reading Room Performing Organization Address City/[facility]/Zipcode Phone Number [facility] Calcium, Ionized (04/15/2018 11:06 AM CDT) Calcium, Ion 1.25 1.12 - 1.27 mmol/L [facility] pH, Blood 7.37 [facility] Specimen Blood Performing Organization Address City/[facility]/Zipcode Phone Number [address] [address] CENTER CBC with platelet count + automated diff (04/15/2018 11:05 AM CDT)Only the most recent of2 resultswithin the time period is included. WBC 12.0 (H) 3.5 - 10.5 K/L [facility] RBC 3.84 (L) 3.93 - 5.22 M/L [facility] Hemoglobin 11.4 11.2 - 15.7 GM/DL [facility] Hematocrit 35.7 34.1 - 44.9 % [facility] MCV 93.0 79.4 - 94.8 fL [facility] MCH 29.7 25.6 - 32.2 pg [facility] MCHC 31.9 (L) 32.2 - 35.5 GM/DL [facility] RDW 14.1 11.7 - 14.4 % [facility] Platelets 207 150 - 450 K/CU MM [facility] MPV 10.7 9.4 - 12.3 fL [facility] nRBC 0 0 - 0 /100 WBC [facility] % Neutros 77 % [facility] % Lymphs 15 % [facility] % Monos 6 % [facility] % Eos 1 % [facility] % Baso 1 % [facility] # Neutros 9.14 (H) 1.56 - 6.13 K/L [facility] # Lymphs 1.78 1.18 - 3.74 K/L [facility] # Monos 0.72 (H) 0.24 - 0.36 K/L [facility] # Eos 0.16 0.04 - 0.36 K/L [facility] # Baso 0.06 0.01 - 0.08 K/L [facility] Immature Granulocytes-Relative 1 0 - 1 % [facility] Specimen Blood Performing Organization Address City/State/Zipcode Phone Number [address] [address] [place] POC ACTIVATED CLOTTING TIME (04/15/2018 9:02 AM CDT) Activated Clotting Time 257Comment: TESTED AT sec [address] [address] Specimen Blood Performing Organization Address City/[facility] Centercode Phone Number [address] [address] [place] XR chest 2 views (04/14/2018 1:39 PM CDT) Specimen Narrative Performed At FINAL REPORT GE RIS [...] MD Report Verified Date/Time:04/14/2018 14:12:09 Reading Location: [address] Radiology Reading Room Procedure Note Interface, [...] Report Verified Date/Time: 04/14/2018 14:12:09 Reading Location: [address] Radiology Reading Room Performing Organization Address City/State/Zipcode Phone Number [facility] Urinalysis w/Microscopic (04/14/2018 1:18 PM CDT) Color, UA Yellow [facility] Clarity, UA Clear [facility] Specific [place], UA 1.010 1.001 - 1.035 [facility] pH, UA 6.5 5.0 - 8.0 [facility] Protein, UA 20 mg/dL (A) Negative [facility] Glucose, UA Negative Negative [facility] Ketones, UA Negative Negative [facility] Bilirubin, UA Negative Negative [facility] Blood, UA Negative Negative [facility] Nitrite, UA Negative Negative [facility] Leukocytes, UA Negative Negative [facility] Urobilinogen, UA 0.2 0.2 - 1.0 mg/dL [facility] RBC, UA <1 /HPF [facility] WBC, UA <1 /HPF [facility] Mucus Rare [facility] Squam Epithel, UA <1 /HPF [facility] Hyaline Casts, UA 4 /LPF [facility] Specimen Source [facility] Specimen Urine Performing Organization Address City/[facility] Centercode Phone Number [address] [address] [phone] CENTER Type and screen, automated (04/14/2018 1:17 PM CDT) ABO/RH AUTOMATED (GAMA) A POSITIVE [facility] Ab Scrn NEGATIVE [facility] Specimen Blood Performing Organization Address City/[facility] Centercode Phone Number [address] [address] HIV-1 Antigen with HIV-1/2 Antibody (04/14/2018 1:17 PM CDT) HIV-1 Antigen with HIV 1&2 NON-REACTIVE Nonreactive [facility] Specimen Blood Performing Organization Address City/[facility] Centercode Phone Number [address] [address] CENTER Hepatitis B Panel (04/14/2018 1:17 PM CDT) Hep B Core Total Ab NON-REACTIVE Nonreactive [facility] Hep B S Ab 63.1 (H) <8.0 mIU/mL [facility] hepatitis B Surface Ag NON-REACTIVE Nonreactive [facility] Specimen Blood Performing Organization Address City/[facility] Centercode Phone Number [address] [address] [phone] CENTER Hepatitis C antibody (04/14/2018 1:17 PM CDT) Hepatitis C Ab NON-REACTIVE Nonreactive [facility] Specimen Blood Performing Organization Address [facility] Centercomi Phone Number [address] [address] [phone] CENTER Reticulocyte count (04/14/2018 1:17 PM CDT) % Retic 1.0 0.5 - 1.7 % [facility] Specimen Blood Performing Organization Address [facility] Centercomi Phone Number [address] [address] CENTER Lipase (04/14/2018 1:17 PM CDT) Lipase 10 8 - 78 U/L [facility] Specimen Blood Performing Organization Address [facility] Centercomi Phone Number [address] [address] [phone] [place] Lactate dehydrogenase (LDH) (04/14/2018 1:17 PM CDT) LDH 238 (H) 125 - 220 U/L [facility] Specimen Blood Performing Organization Address [facility] Centercomi Phone Number [address] [address] CENTER Amylase (04/14/2018 1:17 PM CDT) Amylase 40 25 - 125 U/L [facility] Specimen Blood Performing Organization Address [facility] Centercomi Phone Number [address] [address] [place] Hepatic function panel (04/14/2018 1:17 PM CDT) Protein, Total 7.1 6.0 - 8.3 gm/dL [facility] Albumin 4.0 3.5 - 5.0 g/dL [facility] Total Bilirubin 0.4 0.2 - 1.2 mg/dL [facility] Bilirubin, Direct 0.2 0.1 - 0.5 mg/dL [facility] Alkaline Phosphatase 135 40 - 150 U/L [facility] AST 22 5 - 34 U/L [facility] ALT 22 6 - 55 U/L [facility] Specimen Blood Performing Organization Address City/State/Zipcode Phone Number [facility] [address] [place] [address] CENTER ECG 12 lead (04/14/2018 1:13 PM CDT) Specimen Narrative Performed At Ventricular Rate 56 BPM GE MUSE Atrial Rate 56 BPM P-R Interval 218 ms QRS Duration 70 ms Q-T Interval 428 ms QTC Calculation(Bazett) 413 ms P [place] 55 degrees R [place] -26 degrees T [place] 48 degrees Sinus bradycardia with 1st degree [...] 428 ms QTC Calculation(Bazett) 413 ms P [place] 55 degrees R [place] -26 degrees T [place] 48 degrees Sinus bradycardia with 1st degree A-V block with Premature atrial complexes Voltage criteria for left ventricular hypertrophy Inferior infarct , age undetermined Anterolateral infarct , age undetermined Abnormal ECG No previous ECGs available Confirmed by MD JOHNSON JOSEPH P ([id number]) on 04/15/2018 5:58:45 AM Performing Organization Address City/State/Zipcode Phone Number MONIE MUSE after 01/14/2018 Insurance Payer Benefit Plan / Group Subscriber ID Type Phone Address MEDICARE MEDICARE A B xxxxxxxxxx Medicare MCR SUPPLEMENT/[employer] xxxxxxxx [facility] Advance Directives For more information, please contact:[address] [phone] Code Status Date Activated Date Inactivated Comments Full Code 04/15/2018 10:55 AM 04/19/2018 6:23 PM This code status was determined by: Patient Full Code 04/15/2018 6:03 AM 04/15/2018 10:55 AM This code status was determined by: Patient
--- OUTSIDE RECORDS SUMMARY | 2019-01-15 09:50 | XMS REPORT ---
:1940 [facility] [address] [place] [address] Care Team Providers Name Role Phone DOMINIC [...] ID: VIEW, NON DEPT EVARShould this be [phone] Chest one view performed at the INDICATION: [...] MDReport Verified Date/Time: 04/19/2018 10:16:05 Reading Location: [facility] Radiology Reading Room PHORUS 2018-04-19 05:21:00 Test Item Value Reference Range Comments PHOSPHORUS (BEAKER) (test zvkj=164) 4.0 mg/dL 2.3-4.7 [id number] 05:21:00 Test Item Value Reference Range Comments MAGNESIUM (BEAKER) (test jqop=432) 2.2 mg/dL 1.6-2.6 BASIC METABOLIC [id number] 05:21:00 Test Item Value Reference Range Comments SODIUM (BEAKER) (test 141 meq/L 136-145 ljgt=287) POTASSIUM (BEAKER) (test 3.6 meq/L 3.5-5.1 rddr=987) CHLORIDE (BEAKER) (test 106 meq/L 98-107 uurs=320) CO2 (BEAKER) (test 28 meq/L 22-29 zhuh=963) BLOOD UREA NITROGEN 20 mg/dL 7-21 (BEAKER) (test rryl=834) CREATININE (BEAKER) (test 0.87 mg/dL 0.57-1.25 armg=334) GLUCOSE RANDOM (BEAKER) 122 mg/dL 70-105 (test lwhp=645) CALCIUM (BEAKER) (test 9.0 mg/dL 8.4-10.2 umss=235) EGFR (BEAKER) (test 63 mL/min/1.73 sq m ESTIMATED GFR IS NOT yhsj=8720) ACCURATE CREATININE CLEARANCE IN PREDICTING GLOMERULAR FILTRATION RATE. ESTIMATED GFR IS NOT APPLICABLE FOR DIALYSIS PATIENTS. [id number] 04:58:00 Test Item Value Reference Range Comments PARTIAL THROMBOPLASTIN TIME (BEAKER) (test 36.6 seconds 22.5-36.0 zxwv=538) PROTHROMBIN TIME/[id number] 04:57:00 Test Item Value Reference Range Comments PROTIME (BEAKER) (test tmmj=737) 15.9 seconds 11.7-14.7 INR (BEAKER) (test boji=837) 1.3 <=5.9 RECOMMENDED COUMADIN/WARFARIN INR THERAPY RANGESSTANDARD DOSE: 2.0 - 3.0 Includes: PROPHYLAXIS forvenous thrombosis, systemic embolization; TREATMENT for venous thrombosis and/or pulmonary embolus.HIGH RISK: Target INR is 2.5-3.5 for patients with mechanical heart valves.CBC (HEMOGRAM ONLY)2018-04-19 04:47:00 Test Item Value Reference Range Comments WHITE BLOOD CELL COUNT (BEAKER) (test dkuz=915) 9.5 K/ L 3.5-10.5 RED BLOOD CELL COUNT (BEAKER) (test brtk=034) 3.64 M/ L 3.93-5.22 HEMOGLOBIN (BEAKER) (test zrkk=114) 10.6 GM/DL 11.2-15.7 HEMATOCRIT (BEAKER) (test fvkd=558) 33.8 % 34.1-44.9 MEAN CORPUSCULAR VOLUME (BEAKER) (test zude=860) 92.9 fL 79.4-94.8 MEAN CORPUSCULAR HEMOGLOBIN (BEAKER) (test 29.1 pg 25.6-32.2 fnom=914) MEAN CORPUSCULAR HEMOGLOBIN CONC (BEAKER) (test 31.4 GM/DL 32.2-35.5 otqt=978) RED CELL DISTRIBUTION WIDTH (BEAKER) (test 14.1 % 11.7-14.4 rmjq=748) PLATELET COUNT (BEAKER) (test ezfq=065) 232 K/CU MM 150-450 MEAN PLATELET VOLUME (BEAKER) (test etux=667) 10.9 fL 9.4-12.3 NUCLEATED RED BLOOD CELLS (BEAKER) (test 0 /100 WBC 0-0 thwz=916) RAD, CHEST, 1 VIEW, NON [id number] 08:00:00Reason for exam:->S/P EVARShould this be performed [...] MDReport Verified Date/Time: 04/18/2018 08:00:53 Reading Location: [facility] Radiology Reading Room [id number] 05:25:00 Test Item Value Reference Range Comments PHOSPHORUS (BEAKER) (test pyyj=275) 3.6 mg/dL 2.3-4.7 [id number] 05:25:00 Test Item Value Reference Range Comments MAGNESIUM (BEAKER) (test nlgu=360) 2.2 mg/dL 1.6-2.6 BASIC METABOLIC [id number] 05:25:00 Test Item Value Reference Range Comments SODIUM (BEAKER) (test 139 meq/L 136-145 iiso=099) POTASSIUM (BEAKER) (test 3.2 meq/L 3.5-5.1 wiit=893) CHLORIDE (BEAKER) (test 103 meq/L 98-107 icgz=484) CO2 (BEAKER) (test 25 meq/L 22-29 mhdv=300) BLOOD UREA NITROGEN 17 mg/dL 7-21 (BEAKER) (test sdxl=808) CREATININE (BEAKER) (test 0.86 mg/dL 0.57-1.25 lapg=583) GLUCOSE RANDOM (BEAKER) 150 mg/dL 70-105 (test hlrd=609) CALCIUM (BEAKER) (test 9.6 mg/dL 8.4-10.2 dsep=989) EGFR (BEAKER) (test 64 mL/min/1.73 sq m ESTIMATED GFR IS NOT lhzc=4032) ACCURATE CREATININE CLEARANCE IN PREDICTING GLOMERULAR FILTRATION RATE. ESTIMATED GFR IS NOT APPLICABLE FOR DIALYSIS PATIENTS. [id number] 05:06:00 Test Item Value Reference Range Comments PARTIAL THROMBOPLASTIN TIME (BEAKER) (test 36.5 seconds 22.5-36.0 tsjz=641) PROTHROMBIN [id number] 05:05:00 Test Item Value Reference Range Comments PROTIME (BEAKER) (test tnce=991) 16.5 seconds 11.7-14.7 INR (BEAKER) (test pdto=264) 1.3 <=5.9 RECOMMENDED COUMADIN/WARFARIN INR THERAPY RANGESSTANDARD DOSE: 2.0 - 3.0 Includes: PROPHYLAXIS forvenous thrombosis, systemic embolization; TREATMENT for venous thrombosis and/or pulmonary embolus.HIGH RISK: Target INR is 2.5-3.5 for patients with mechanical heart valves.CBC (HEMOGRAM ONLY)2018-04-18 04:52:00 Test Item Value Reference Range Comments WHITE BLOOD CELL COUNT (BEAKER) (test gwzj=138) 11.2 K/ L 3.5-10.5 RED BLOOD CELL COUNT (BEAKER) (test cuif=896) 3.90 M/ L 3.93-5.22 HEMOGLOBIN (BEAKER) (test kjhq=072) 11.3 GM/DL 11.2-15.7 HEMATOCRIT (BEAKER) (test yezr=531) 35.7 % 34.1-44.9 MEAN CORPUSCULAR VOLUME (BEAKER) (test xhzt=481) 91.5 fL 79.4-94.8 MEAN CORPUSCULAR HEMOGLOBIN (BEAKER) (test 29.0 pg 25.6-32.2 bjyj=865) MEAN CORPUSCULAR HEMOGLOBIN CONC (BEAKER) (test 31.7 GM/DL 32.2-35.5 vxfk=823) RED CELL DISTRIBUTION WIDTH (BEAKER) (test 14.2 % 11.7-14.4 bkgf=900) PLATELET COUNT (BEAKER) (test jimt=265) 208 K/CU MM 150-450 MEAN PLATELET VOLUME (BEAKER) (test dfti=434) 10.6 fL 9.4-12.3 NUCLEATED RED BLOOD CELLS (BEAKER) (test 0 /100 WBC 0-0 nvjs=661) RAD, CHEST, 1 VIEW, NON [id number] 10:31:00Reason for exam:->S/P EVARShould this be performed at the bedside?->YesFINAL REPORT Chest, one view. HISTORY: Status post aortic repair COMPARISON: 2017 IMPRESSION: No significant change. Unchanged tortuosity and ectasia of the thoracic aorta.Mild interstitial edema. No large pleural effusion or pneumothorax. Signed: Gera Hernandez Verified Date/Time: 04/17/2018 10: 31:41 Reading Location: [facility] C013Y CT Body Reading Room [id number] 06: 43:00 Test Item Value Reference Range Comments PHOSPHORUS (BEAKER) (test aerf=727) 3.3 mg/dL 2.3-4.7 [id number] 06:43:00 Test Item Value Reference Range Comments MAGNESIUM (BEAKER) (test oxrg=468) 2.0 mg/dL 1.6-2.6 [id number] 06:23:00 Test Item Value Reference Range Comments PARTIAL THROMBOPLASTIN TIME (BEAKER) (test 36.4 seconds 22.5-36.0 ubiy=646) PROTHROMBIN TIME/[id number] 06:22:00 Test Item Value Reference Range Comments PROTIME (BEAKER) (test jogg=986) 17.3 seconds 11.7-14.7 INR (BEAKER) (test apvm=184) 1.4 <=5.9 RECOMMENDED COUMADIN/WARFARIN INR THERAPY RANGESSTANDARD DOSE: 2.0 - 3.0 Includes: PROPHYLAXIS forvenous thrombosis, systemic embolization; TREATMENT for venous thrombosis and/or pulmonary embolus.HIGH RISK: Target INR is 2.5-3.5 for patients with mechanical heart valves.CBC (HEMOGRAM ONLY)2018-04-17 06:13:00 Test Item Value Reference Range Comments WHITE BLOOD CELL COUNT (BEAKER) (test odpm=977) 13.2 K/ L 3.5-10.5 RED BLOOD CELL COUNT (BEAKER) (test gzib=036) 3.84 M/ L 3.93-5.22 HEMOGLOBIN (BEAKER) (test mbaa=629) 11.5 GM/DL 11.2-15.7 HEMATOCRIT (BEAKER) (test emfl=960) 34.9 % 34.1-44.9 MEAN CORPUSCULAR VOLUME (BEAKER) (test idii=440) 90.9 fL 79.4-94.8 MEAN CORPUSCULAR HEMOGLOBIN (BEAKER) (test 29.9 pg 25.6-32.2 ufrl=634) MEAN CORPUSCULAR HEMOGLOBIN CONC (BEAKER) (test 33.0 GM/DL 32.2-35.5 atwp=348) RED CELL DISTRIBUTION WIDTH (BEAKER) (test 14.0 % 11.7-14.4 ikew=632) PLATELET COUNT (BEAKER) (test ivzb=395) 201 K/CU MM 150-450 MEAN PLATELET VOLUME (BEAKER) (test afnk=289) 10.6 fL 9.4-12.3 NUCLEATED RED BLOOD CELLS (BEAKER) (test 0 /100 WBC 0-0 yrvc=169) RAD, CHEST, 1 VIEW, NON [id number] 09:02:00Reason for exam:->S/P EVARShould this be performed [...] Hernandezeport Verified Date/Time: 04/16/2018 09:02:11 Reading Location: [facility] B1 C013Y CT Body Reading Room [id number] 06:11:00 Test Item Value Reference Range Comments PHOSPHORUS (BEAKER) (test pkse=328) 1.9 mg/dL 2.3-4.7 [id number] 06:11:00 Test Item Value Reference Range Comments MAGNESIUM (BEAKER) (test yuhm=500) 2.0 mg/dL 1.6-2.6 BASIC METABOLIC [id number] 06:11:00 Test Item Value Reference Range Comments SODIUM (BEAKER) (test 137 meq/L 136-145 gjki=196) POTASSIUM (BEAKER) (test 3.2 meq/L 3.5-5.1 fzuc=146) CHLORIDE (BEAKER) (test 104 meq/L 98-107 zbkt=942) CO2 (BEAKER) (test 24 meq/L 22-29 orgz=803) BLOOD UREA NITROGEN 7 mg/dL 7-21 (BEAKER) (test cvoj=570) CREATININE (BEAKER) (test 0.86 mg/dL 0.57-1.25 nuxg=225) GLUCOSE RANDOM (BEAKER) 179 mg/dL 70-105 (test eriw=701) CALCIUM (BEAKER) (test 9.0 mg/dL 8.4-10.2 hzgx=594) EGFR (BEAKER) (test 64 mL/min/1.73 sq m ESTIMATED GFR IS NOT ejrb=4447) ACCURATE CREATININE CLEARANCE IN PREDICTING GLOMERULAR FILTRATION RATE. ESTIMATED GFR IS NOT APPLICABLE FOR DIALYSIS PATIENTS. [id number] 05:46:00 Test Item Value Reference Range Comments PARTIAL THROMBOPLASTIN TIME (BEAKER) (test 32.0 seconds 22.5-36.0 ydgl=403) PROTHROMBIN TIME/[id number] 05:45:00 Test Item Value Reference Range Comments PROTIME (BEAKER) (test skym=235) 15.0 seconds 11.7-14.7 INR (BEAKER) (test qvwg=093) 1.2 <=5.9 RECOMMENDED COUMADIN/WARFARIN INR THERAPY RANGESSTANDARD DOSE: 2.0 - 3.0 Includes: PROPHYLAXIS forvenous thrombosis, systemic embolization; TREATMENT for venous thrombosis and/or pulmonary embolus.HIGH RISK: Target INR is 2.5-3.5 for patients with mechanical heart valves.CBC (HEMOGRAM ONLY)2018-04-16 05:31:00 Test Item Value Reference Range Comments WHITE BLOOD CELL COUNT (BEAKER) (test tnbx=588) 12.0 K/ L 3.5-10.5 RED BLOOD CELL COUNT (BEAKER) (test dvdh=942) 4.19 M/ L 3.93-5.22 HEMOGLOBIN (BEAKER) (test spga=043) 12.4 GM/DL 11.2-15.7 HEMATOCRIT (BEAKER) (test zgzi=207) 38.6 % 34.1-44.9 MEAN CORPUSCULAR VOLUME (BEAKER) (test mrcg=761) 92.1 fL 79.4-94.8 MEAN CORPUSCULAR HEMOGLOBIN (BEAKER) (test 29.6 pg 25.6-32.2 gvcp=643) MEAN CORPUSCULAR HEMOGLOBIN CONC (BEAKER) (test 32.1 GM/DL 32.2-35.5 pgxo=213) RED CELL DISTRIBUTION WIDTH (BEAKER) (test 14.0 % 11.7-14.4 nupm=557) PLATELET COUNT (BEAKER) (test kvfu=682) 223 K/CU MM 150-450 MEAN PLATELET VOLUME (BEAKER) (test flxb=901) 10.3 fL 9.4-12.3 NUCLEATED RED BLOOD CELLS (BEAKER) (test 0 /100 WBC 0-0 wxms=546) [id number] 13:56:00 Test Item Value Reference Range Comments ACTIVATED CLOTTING TIME [address] [facility] [address] (BEAKER) (test rtfr=520) [place] [address] RAD, ABDOMEN/KUB, 1 VIEW [id number] 12:39:00Reason for exam:->Postop AAAFINAL REPORT CLINICAL HISTORY: [...] GodwinMDReport Verified Date/Time: 2017 12:39:57 Reading Location: [facility] Radiology Reading Room RAD, CHEST , 1 VIEW, NON [id number] 12:38:00For chest painReason for exam:->post opShould this be performed at the bedside?->YesFINAL REPORT CLINICAL HISTORY: post op TECHNIQUE: 1 view of the chest. COMPARISON: 04/10/2018 IMPRESSION: There are no focal infiltrates or effusions. Cardiomegaly is again seen with tortuosity of the thoracic aorta. Signed: Hardik Godwin MDReport Verified Date/Time: 04/15/201812:38:40 Reading Location: [facility] Radiology Reading Room [id number] 11:51:00 Test Item Value Reference Range Comments PHOSPHORUS (BEAKER) (test ozba=584) 3.2 mg/dL 2.3-4.7 BASIC METABOLIC [id number] 11:51:00 Test Item Value Reference Range Comments SODIUM (BEAKER) (test 140 meq/L 136-145 ecqp=455) POTASSIUM (BEAKER) (test 3.8 meq/L 3.5-5.1 huln=032) CHLORIDE (BEAKER) (test 109 meq/L 98-107 srtk=496) CO2 (BEAKER) (test 24 meq/L 22-29 bdmr=111) BLOOD UREA NITROGEN 12 mg/dL 7-21 (BEAKER) (test gcvk=306) CREATININE (BEAKER) (test 0.77 mg/dL 0.57-1.25 fejs=299) GLUCOSE RANDOM (BEAKER) 176 mg/dL 70-105 (test ltvc=212) CALCIUM (BEAKER) (test 9.7 mg/dL 8.4-10.2 qgnk=196) EGFR (BEAKER) (test 73 mL/min/1.73 sq m ESTIMATED GFR IS NOT wuxz=8118) ACCURATE CREATININE CLEARANCE IN PREDICTING GLOMERULAR FILTRATION RATE. ESTIMATED GFR IS NOT APPLICABLE FOR DIALYSIS PATIENTS. CBC W/PLT COUNT & AUTO [id number] 11:23:00 Test Item Value Reference Range Comments WHITE BLOOD CELL COUNT (BEAKER) (test adwn=902) 12.0 K/ L 3.5-10.5 RED BLOOD CELL COUNT (BEAKER) (test ymhn=231) 3.84 M/ L 3.93-5.22 HEMOGLOBIN (BEAKER) (test qzmx=150) 11.4 GM/DL 11.2-15.7 HEMATOCRIT (BEAKER) (test ztmv=406) 35.7 % 34.1-44.9 MEAN CORPUSCULAR VOLUME (BEAKER) (test ugid=038) 93.0 fL 79.4-94.8 MEAN CORPUSCULAR HEMOGLOBIN (BEAKER) (test 29.7 pg 25.6-32.2 zsyd=369) MEAN CORPUSCULAR HEMOGLOBIN CONC (BEAKER) (test 31.9 GM/DL 32.2-35.5 kqgx=247) RED CELL DISTRIBUTION WIDTH (BEAKER) (test 14.1 % 11.7-14.4 yvvd=827) PLATELET COUNT (BEAKER) (test yjum=039) 207 K/CU MM 150-450 MEAN PLATELET VOLUME (BEAKER) (test pior=878) 10.7 fL 9.4-12.3 NUCLEATED RED BLOOD CELLS (BEAKER) (test 0 /100 WBC 0-0 hwjq=804) NEUTROPHILS RELATIVE PERCENT (BEAKER) (test 77 % nfhz=325) LYMPHOCYTES RELATIVE PERCENT (BEAKER) (test 15 % vgwj=969) MONOCYTES RELATIVE PERCENT (BEAKER) (test 6 % snfq=843) EOSINOPHILS RELATIVE PERCENT (BEAKER) (test 1 % yecp=350) BASOPHILS RELATIVE PERCENT (BEAKER) (test 1 % mrcx=997) NEUTROPHILS ABSOLUTE COUNT (BEAKER) (test 9.14 K/ L 1.56-6.13 yhgj=926) LYMPHOCYTES ABSOLUTE COUNT (BEAKER) (test 1.78 K/ L 1.18-3.74 kbci=894) MONOCYTES ABSOLUTE COUNT (BEAKER) (test 0.72 K/ L 0.24-0.36 uyye=542) EOSINOPHILS ABSOLUTE COUNT (BEAKER) (test 0.16 K/ L 0.04-0.36 zvve=612) BASOPHILS ABSOLUTE COUNT (BEAKER) (test 0.06 K/ L 0.01-0.08 thxs=675) IMMATURE GRANULOCYTES-RELATIVE PERCENT (BEAKER) 1 % 0-1 (test lbys=1461) PROTHROMBIN TIME/[id number] 11:22:00 Test Item Value Reference Range Comments PROTIME (BEAKER) (test eihe=627) 15.7 seconds 11.7-14.7 INR (BEAKER) (test tvue=133) 1.3 <=5.9 RECOMMENDED COUMADIN/WARFARIN INR THERAPY RANGESSTANDARD DOSE: 2.0 - 3.0 Includes: PROPHYLAXIS forvenous thrombosis, systemic embolization; TREATMENT for venous thrombosis and/or pulmonary embolus.HIGH RISK: Target INR is 2.5-3.5 for patients with mechanical heart valves.CALCIUM, [id number] 11:06:00 Test Item Value Reference Range Comments CALCIUM IONIZED (BEAKER) (test tyif=454) 1.25 mmol/L 1.12-1.27 PH, BLOOD (BEAKER) (test msrn=3427) 7.37 HEPATITIS C [id number] 15:18:00 Test Item Value Reference Range Comments HEPATITIS C ANTIBODY (BEAKER) (test lioc=496) Nonreactive Nonreactive HEPATITIS B [id number] 15:18:00 Test Item Value Reference Range Comments HEPATITIS B CORE TOTAL ANTIBODY (BEAKER) (test Nonreactive Nonreactive kvpj=334) HEPATITIS B SURFACE ANTIBODY (BEAKER) (test 63.1 mIU/mL <8.0 otrc=455) HEPATITIS B SURFACE ANTIGEN (2) (BEAKER) (test Nonreactive Nonreactive bmcb=8383) HIV-1 ANTIGEN WITH HIV-1/2 [id number] 15:18:00 Test Item Value Reference Range Comments HIV-1 ANTIGEN WITH HIV 1\T\2 ANTIBODY (2) Nonreactive Nonreactive (BEAKER) (test phmg=3846) [id number] 15:08:00 Test Item Value Reference Range Comments LIPASE (BEAKER) (test omsh=852) 10 U/L 8-78 [id number] 15:08:00 Test Item Value Reference Range Comments AMYLASE (BEAKER) (test roib=078) 40 U/L 25-125 BASIC METABOLIC [id number] 15:08:00 Test Item Value Reference Range Comments SODIUM (BEAKER) (test 141 meq/L 136-145 wuxj=587) POTASSIUM (BEAKER) (test 3.6 meq/L 3.5-5.1 lbcg=183) CHLORIDE (BEAKER) (test 104 meq/L 98-107 fbdj=734) CO2 (BEAKER) (test 27 meq/L 22-29 kbsk=001) BLOOD UREA NITROGEN 12 mg/dL 7-21 (BEAKER) (test ddrm=022) CREATININE (BEAKER) (test 0.86 mg/dL 0.57-1.25 dsue=465) GLUCOSE RANDOM (BEAKER) 112 mg/dL 70-105 (test mtpg=596) CALCIUM (BEAKER) (test 9.8 mg/dL 8.4-10.2 vupv=505) EGFR (BEAKER) (test 64 mL/min/1.73 sq m ESTIMATED GFR IS NOT jnul=8528) ACCURATE CREATININE CLEARANCE IN PREDICTING GLOMERULAR FILTRATION RATE. ESTIMATED GFR IS NOT APPLICABLE FOR DIALYSIS PATIENTS. HEPATIC FUNCTION [id number] 15:08:00 Test Item Value Reference Range Comments TOTAL PROTEIN (BEAKER) (test ymqq=307) 7.1 gm/dL 6.0-8.3 ALBUMIN (BEAKER) (test vuik=6484) 4.0 g/dL 3.5-5.0 BILIRUBIN TOTAL (BEAKER) (test jtuh=811) 0.4 mg/dL 0.2-1.2 BILIRUBIN DIRECT (BEAKER) (test qrkw=491) 0.2 mg/dL 0.1-0.5 ALKALINE PHOSPHATASE (BEAKER) (test huhp=939) 135 U/L 40-150 AST (SGOT) (BEAKER) (test jqnn=142) 22 U/L 5-34 ALT (SGPT) (BEAKER) (test pcjd=309) 22 U/L 6-55 LACTATE DEHYDROGENASE (LDH)2018-04-14 15:08:00 Test Item Value Reference Range Comments LACTATE DEHYDROGENASE (BEAKER) (test xhef=668) 238 U/L 125-220 [id number] 14:47:00 Test Item Value Reference Range Comments PARTIAL THROMBOPLASTIN TIME (BEAKER) (test 31.9 seconds 22.5-36.0 htfa=731) PROTHROMBIN TIME/[id number] 14:46:00 Test Item Value Reference Range Comments PROTIME (BEAKER) (test hmpq=597) 14.1 seconds 11.7-14.7 INR (BEAKER) (test lbvy=801) 1.1 <=5.9 RECOMMENDED COUMADIN/WARFARIN INR THERAPY RANGESSTANDARD DOSE: 2.0 - 3.0 Includes: PROPHYLAXIS forvenous thrombosis, systemic embolization; TREATMENT for venous thrombosis and/or pulmonary embolus.HIGH RISK: Target INR is 2.5-3.5 for patients with mechanical heart valves.RETICULOCYTE [id number] 14:36:00 Test Item Value Reference Range Comments RETICULOCYTE COUNT PCT (BEAKER) (test jkhw=383) 1.0 % 0.5-1.7 CBC W/PLT COUNT & AUTO [id number] 14:36:00 Test Item Value Reference Range Comments WHITE BLOOD CELL COUNT (BEAKER) (test euer=008) 9.3 K/ L 3.5-10.5 RED BLOOD CELL COUNT (BEAKER) (test bnvs=445) 4.05 M/ L 3.93-5.22 HEMOGLOBIN (BEAKER) (test kbek=537) 12.2 GM/DL 11.2-15.7 HEMATOCRIT (BEAKER) (test wzre=964) 37.2 % 34.1-44.9 MEAN CORPUSCULAR VOLUME (BEAKER) (test ftew=527) 91.9 fL 79.4-94.8 MEAN CORPUSCULAR HEMOGLOBIN (BEAKER) (test 30.1 pg 25.6-32.2 cgef=157) MEAN CORPUSCULAR HEMOGLOBIN CONC (BEAKER) (test 32.8 GM/DL 32.2-35.5 vaip=536) RED CELL DISTRIBUTION WIDTH (BEAKER) (test 14.2 % 11.7-14.4 xfvz=547) PLATELET COUNT (BEAKER) (test xqlf=234) 259 K/CU MM 150-450 MEAN PLATELET VOLUME (BEAKER) (test nxmu=375) 11.1 fL 9.4-12.3 NUCLEATED RED BLOOD CELLS (BEAKER) (test 0 /100 WBC 0-0 epsc=692) NEUTROPHILS RELATIVE PERCENT (BEAKER) (test 70 % nhgk=221) LYMPHOCYTES RELATIVE PERCENT (BEAKER) (test 19 % zbwh=486) MONOCYTES RELATIVE PERCENT (BEAKER) (test 8 % moyn=004) EOSINOPHILS RELATIVE PERCENT (BEAKER) (test 2 % jdbm=197) BASOPHILS RELATIVE PERCENT (BEAKER) (test 1 % rmhx=669) NEUTROPHILS ABSOLUTE COUNT (BEAKER) (test 6.49 K/ L 1.56-6.13 kise=512) LYMPHOCYTES ABSOLUTE COUNT (BEAKER) (test 1.74 K/ L 1.18-3.74 akau=165) MONOCYTES ABSOLUTE COUNT (BEAKER) (test 0.78 K/ L 0.24-0.36 ekvx=092) EOSINOPHILS ABSOLUTE COUNT (BEAKER) (test 0.14 K/ L 0.04-0.36 vmeh=436) BASOPHILS ABSOLUTE COUNT (BEAKER) (test 0.07 K/ L 0.01-0.08 rrwl=181) IMMATURE GRANULOCYTES-RELATIVE PERCENT (BEAKER) 0 % 0-1 (test hudg=2146) URINALYSIS W/ [id number] 14:25:00 Test Item Value Reference Range Comments COLOR (BEAKER) (test acvh=695) Yellow CLARITY (BEAKER) (test ktnl=541) Clear SPECIFIC GRAVITY UA (BEAKER) (test oahk=262) 1.010 1.001-1.035 PH UA (BEAKER) (test seqo=876) 6.5 5.0-8.0 PROTEIN UA (BEAKER) (test hrre=678) 20 mg/dL Negative GLUCOSE UA (BEAKER) (test spdl=031) Negative Negative KETONES UA (BEAKER) (test jfms=193) Negative Negative BILIRUBIN UA (BEAKER) (test rrsu=247) Negative Negative BLOOD UA (BEAKER) (test cyql=069) Negative Negative NITRITE UA (BEAKER) (test acbv=807) Negative Negative LEUKOCYTE ESTERASE UA (BEAKER) (test qtxf=284) Negative Negative UROBILINOGEN UA (BEAKER) (test aonk=755) 0.2 mg/dL 0.2-1.0 RBC UA (BEAKER) (test jpwm=308) < /HPF WBC UA (BEAKER) (test zrif=426) < /HPF MUCUS (BEAKER) (test uunf=6660) Rare SQUAMOUS EPITHELIAL (BEAKER) (test gfcq=842) < /HPF HYALINE CASTS (BEAKER) (test hdhc=976) 4 /LPF SOURCE(BEAKER) (test fvhn=3192) RAD, CHEST, 2 [id number] 14:12:00Reason for exam:->surgeryFINAL REPORT Chest, two views HISTORY: Surgery COMPARISON: None. DISCUSSION: Lungs are clear without focal consolidation. Cardiomediastinal silhouette is unremarkable. Tortuosityand ectasia of the thoracic aorta. No acute osseous abnormality. No pleural effusion or pneumothorax. Visualized portions of the upper abdomen are unremarkable. IMPRESSION: No acute cardiopulmonary abnormality. Signed: Gera Hernandez MDReport Verified Date/Time: 04/14/2018 14:12:09 Reading Location: [address] Radiology Reading Room 02:12 PM
[2019-01-15 10:17] LABS: Absolute Lymphocytes (CBC) 1.4 K/uL (0.7-4.9); Absolute Monocytes 0.7 K/uL (0.1-1.3); Absolute Neutrophil 5.8 K/uL (1.8-8.0); Basophils % 0.9 % (0-1.3); Eosinophils % 1.7 % (0-4.4); Hematocrit 29.9 % (36.0-45.0); MPV 7.9 fL (7.6-11.3); Monocytes % 9.1 % (3.3-12.3); RBC Red Blood Cell Count 3.79 M/uL (3.86-4.86)
[2019-01-15 10:21] LABS: Protime INR 1.22
[2019-01-15 10:36] LABS: BUN Blood Urea Nitrogen 14 mg/dL (7-18); Bicarbonate 26 mmol/L (21-32); Glucose Level 153 mg/dL (74-106); Magnesium 2.3 mg/dL (1.8-2.4); NT PRO-BNP 635 pg/mL (<450); Potassium 4.5 mmol/L (3.5-5.1); Sodium Level 142 mmol/L (136-145); Troponin (Emerg Dept Use Only) < 0.02 ng/mL (0.0-0.045)
--- NOTE | 2019-01-15 10:43 | RAD REPORT ---
EXAM DESCRIPTION: RAD - Chest Single View - 01/15/2019 10:22 am CLINICAL HISTORY: weakness, malaise Chest pain. COMPARISON: Chest Pa And Lat (2 Views) dated 01/04/2019; Chest Single View dated 07/17/2018; CHEST SI NGLE VIEW dated 10/16/2015; CHEST SINGLE VIEW dated 03/12/2015 FINDINGS: Portable technique limits examination quality. The lungs are grossly clear. The heart is normal in size. Thoracic aorta is tortuous. No displaced fr actures. IMPRESSION: No acute intrathoracic process suspected.
--- NOTE | 2019-01-15 10:58 | ER ---
Nurse's Notes [facility] Name: Syl Sheikh Age: 78 yrs Sex: Female : 1940 Arrival Date: 01/15/2019 Time: 09:45 Bed 7 Private MD: Diagnosis: Weakness Presentation: 01/15 09:45 Presenting complaint: EMS states: from home, pt has generalized weakness, negative for hj facial droop or drift; pt was D/C'd a week ago for low Hgb- 8.5 and possible GI bleed; BGL- 168; 20g R AC; BP- 150/64; HR- 70; on clonidine patch on R upper arm;. Transition of care: patient was not received from another setting of care. Onset of symptoms was January 15, 2019. Risk Assessment: Do you want to hurt yourself or someone else? Patient reports no desire to harm self or others. Initial Sepsis Screen: Does the patient meet any 2 criteria? No. Patient's initial sepsis screen is negative. Does the patient have a suspected source of infection? No. Patient's initial sepsis screen is negative. Care prior to arrival: None. 09:45 Method Of Arrival: EMS: [facility] 09:45 Acuity: MP 3 hj Triage Assessment: 09:56 General: Appears in no apparent distress. uncomfortable, Behavior is calm, cooperative, hj appropriate for age. Pain: Denies pain. Historical: - Allergies: 09:59 butorphanol tartrate; hj 09:59 Codeine; hj 09:59 Hydrocodone-Acetaminophen; hj 09:59 Lisinopril; hj 09:59 Stadol; hj 09:59 statin drugs; hj - PMHx: 09:59 abdominal aortic aneurysm; CVA; Hypertension; TIA; hj - PSHx: 09:59 AAA repair 03/2018; hj - Immunization history:: Adult Immunizations up to date. - Social history:: Smoking status: Patient/guardian denies using tobacco, Patient/guardian denies using alcohol. - Ebola Screening: : Patient negative for fever greater than or equal to 101.5 degrees Fahrenheit, and additional compatible Ebola Virus Disease symptoms Patient denies exposure to infectious person Patient denies travel to an Ebola-affected area in the 21 days before illness onset. Screenin:56 Abuse screen: Denies threats or abuse. Denies injuries from another. Nutritional hj screening: No deficits noted. Tuberculosis screening: No symptoms or risk factors identified. Fall Risk None identified. Assessment: 09:57 General: Appears in no apparent distress. uncomfortable, Behavior is calm, cooperative, hj appropriate for age. Pain: Complains of pain in neck. Neuro: Level of Consciousness is awake, alert, obeys commands, Oriented to person, place, time, situation, Appropriate for age. Cardiovascular: Capillary refill < 3 seconds Patient's skin is warm and dry. Respiratory: Airway is patent Respiratory effort is even, unlabored, Respiratory pattern is regular, symmetrical. GI: No signs and/or symptoms were reported involving the gastrointestinal system. : No signs and/or symptoms were reported regarding the genitourinary system. EENT: No signs and/or symptoms were reported regarding the EENT system. Derm: No signs and/or symptoms reported regarding the dermatologic system. Musculoskeletal: No signs and/or symptoms reported regarding the musculoskeletal system. 10:30 Reassessment: Patient and/or family updated on plan of care and expected duration. Pain hj level reassessed. Patient is alert, oriented x 3, equal unlabored respirations, skin warm/dry/pink. awaiting results and POC;. Vital Signs: 09:55 BP 141 / 63; Pulse 65; Resp 18; Temp 98.1(TE); Pulse Ox 100% ; Weight 58.97 kg; Height hj 5 ft. 7 in. (170.18 cm); 10:30 BP 143 / 73; Pulse 65; Resp 18; Pulse Ox 100% on R/A; hj 09:55 Body Mass Index 20.36 (58.97 kg, 170.18 cm) hj ED Course: 09:45 Patient arrived in ED. hj 09:47 Tosin Flores FNP-C is PHCP. kb 09:47 Gregg Silvestre MD is Attending Physician. kb 09:55 Triage completed. hj 09:57 Arm band placed on left wrist. hj 09:57 Patient has correct armband on for positive identification. Placed in gown. Bed in low hj position. Call light in reach. Side rails up X2. 10:09 Caleb Ruiz RN is Primary Nurse. hj 10:10 Initial lab(s) drawn, by me, sent to lab. Maintain EMS IV. Dressing intact. Good blood hj return noted. Site clean \T\ dry. Gauge \T\ site: 20g R AC. 10:21 XRAY Chest (1 view) In Process Unspecified. EDMS 11:08 No provider procedures requiring assistance completed. IV discontinued, intact, hj bleeding controlled, No redness/swelling at site. Pressure dressing applied. Administered Medications: No medications were administered Outcome: 10:58 Discharge ordered by . kasey 11:09 Discharged to home ambulatory, with family. hj 11:09 Condition: stable 11:09 Discharge instructions given to patient, family, Instructed on discharge instructions, follow up and referral plans. Demonstrated understanding of instructions, follow-up care. 11:09 Patient left the ED. jay Signatures: Dispatcher [employer] EDMS Tosin Flores, SEGMENT ASSEMBLER-C SEGMENT ASSEMBLER-Caleb Duggan, RN RN jay
--- NOTE | 2019-01-15 10:58 | EDPHYS ---
Physician Documentation [facility] Name: Syl Sheikh Age: 78 yrs Sex: Female : 1940 Arrival Date: 01/15/2019 Time: 09:45 Bed 7 Private MD: ED Physician Gregg Silvestre HPI: 01/15 10:35 This 78 yrs old Female presents to ER via EMS with complaints of General kb Weakness. 10:35 The patient presents with generalized weakness. Onset: The symptoms/episode kb began/occurred 3 day(s) ago, and became worse this morning. Context: occurred at home. Modifying factors: The symptoms are alleviated by nothing, the symptoms are aggravated by nothing. Associated signs and symptoms: The patient has no apparent associated signs or symptoms. Severity of symptoms: At their worst the symptoms were moderate in the emergency department the symptoms are unchanged. Patient's baseline: Neuro: alert and fully oriented, Motor: no deficits, Ambulation: walks without assistance, Speech: normal. The patient has experienced a previous episode, approximately 2 weeks ago. The patient has not recently seen a physician. 10:37 Pt reports she was discharged from the hospital 9 days ago. Was admitted for low kb hemoglobin and her stool was positive for occult blood. States she felt ok for the first couple of days home, but her son told her she seemed more weak for the past 3 days. Reports she is under a lot of stress, hasn't been eating much and this morning was really weak so she called 911. . Historical: - Allergies: 09:59 butorphanol tartrate; hj 09:59 Codeine; hj 09:59 Hydrocodone-Acetaminophen; hj 09:59 Lisinopril; hj 09:59 Stadol; hj 09:59 statin drugs; hj - PMHx: 09:59 abdominal aortic aneurysm; CVA; Hypertension; TIA; hj - PSHx: 09:59 AAA repair 03/2018; hj - Immunization history:: Adult Immunizations up to date. - Social history:: Smoking status: Patient/guardian denies using tobacco, Patient/guardian denies using alcohol. - Ebola Screening: : Patient negative for fever greater than or equal to 101.5 degrees Fahrenheit, and additional compatible Ebola Virus Disease symptoms Patient denies exposure to infectious person Patient denies travel to an Ebola-affected area in the 21 days before illness onset. ROS: 10:34 ENT: Negative for injury, pain, and discharge, Neck: Negative for injury, pain, and kb swelling, Cardiovascular: Negative for chest pain, palpitations, and edema, Respiratory: Negative for shortness of breath, cough, wheezing, and pleuritic chest pain, Abdomen/GI: Negative for abdominal pain, nausea, vomiting, diarrhea, and constipation, Back: Negative for injury and pain, MS/Extremity: Negative for injury and deformity, Skin: Negative for injury, rash, and discoloration. 10:34 Constitutional: Positive for fatigue, malaise, poor PO intake, Negative for body aches, chills, fever, weight loss. 10:34 Neuro: Positive for weakness. Exam: 10:34 Constitutional: This is a well developed, well nourished patient who is awake, alert, kb and in no acute distress. Head/Face: Normocephalic, atraumatic. Chest/axilla: Normal chest wall appearance and motion. Nontender with no deformity. No lesions are appreciated. Cardiovascular: Regular rate and rhythm with a normal S1 and S2. No gallops, murmurs, or rubs. Normal PMI, no JVD. No pulse deficits. Respiratory: Lungs have equal breath sounds bilaterally, clear to auscultation and percussion. No rales, rhonchi or wheezes noted. No increased work of breathing, no retractions or nasal flaring. Skin: Warm, dry with normal turgor. Normal color with no rashes, no lesions, and no evidence of cellulitis. MS/ Extremity: Pulses equal, no cyanosis. Neurovascular intact. Full, normal range of motion. Neuro: Awake and alert, GCS 15, oriented to person, place, time, and situation. Cranial nerves II-XII grossly intact. Motor strength 5/5 in all extremities. Sensory grossly intact. Cerebellar exam normal. Normal gait. 10:34 Abdomen/GI: Inspection: abdomen appears normal, Bowel sounds: normal, in all quadrants, Palpation: soft, in all quadrants, mild abdominal tenderness, in the left lower quadrant. 10:51 ECG was reviewed by the Attending Physician. kb 10:58 Abdomen/GI: Rectal exam: rectal tone normal, Stool: guaiac negative. kb Vital Signs: 09:55 BP 141 / 63; Pulse 65; Resp 18; Temp 98.1(TE); Pulse Ox 100% ; Weight 58.97 kg; Height hj 5 ft. 7 in. (170.18 cm); 10:30 BP 143 / 73; Pulse 65; Resp 18; Pulse Ox 100% on R/A; hj 09:55 Body Mass Index 20.36 (58.97 kg, 170.18 cm) hj MDM: 09:49 Patient medically screened. kb 10:35 Data reviewed: vital signs, nurses notes. Data interpreted: Pulse oximetry: on room air kb is 100 %. Interpretation: normal. 10:52 Counseling: I had a detailed discussion with the patient and/or guardian regarding: the kb historical points, exam findings, and any diagnostic results supporting the discharge/admit diagnosis, lab results, radiology results, the need for outpatient follow up, a family practitioner, to return to the emergency department if symptoms worsen or persist or if there are any questions or concerns that arise at home. 01/15 09:48 Order name: Basic Metabolic Panel kb 01/15 09:48 Order name: CBC with Diff; Complete Time: 10:21 kb 01/15 09:48 Order name: Magnesium; Complete Time: 10:39 kb 01/15 09:48 Order name: NT PRO-BNP; Complete Time: 10:39 kb 01/15 09:48 Order name: PT-INR; Complete Time: 10:22 kb 01/15 09:48 Order name: Troponin (emerg Dept Use Only); Complete Time: 10:39 kb 01/15 09:48 Order name: XRAY Chest (1 view); Complete Time: 10:47 kb 01/15 09:48 Order name: EKG; Complete Time: 09:49 kb 01/15 09:48 Order name: Cardiac monitoring; Complete Time: 09:59 kb 01/15 09:48 Order name: EKG - Nurse/Tech; Complete Time: 10:18 kb 01/15 09:49 Order name: Basic Metabolic Panel; Complete Time: 10:39 EDMS 01/15 10:36 Order name: Urine Dipstick--Ancillary (enter results) eb 01/15 10:58 Order name: Occult Blood--Ancillary eb 01/15 10:59 Order name: Occult Blood--Ancillary EDMS 01/15 09:48 Order name: IV Saline Lock; Complete Time: 10:00 kb 01/15 09:48 Order name: Labs collected and sent; Complete Time: 10:18 kb 01/15 09:48 Order name: O2 Per Protocol; Complete Time: 10:00 kb 01/15 09:48 Order name: O2 Sat Monitoring; Complete Time: 09:59 kb 01/15 09:49 Order name: Urine Dipstick-Ancillary (obtain specimen); Complete Time: 10:22 kb EC:51 Rate is 65 beats/min. Rhythm is regular, Normal Sinus Rhythm. QRS [place] is Normal. [place] kb interval is normal at 188 msec. QRS interval is normal at 80 msec. QT interval is normal at 408 msec. Clinical impression: Normal ECG. Interpreted by me. Reviewed by me. Administered Medications: No medications were administered Disposition: 01/15/19 10:58 Discharged to Home. Impression: Weakness. - Condition is Stable. - Discharge Instructions: Weakness, [id number]. - Medication Reconciliation Form, Thank You Letter, Antibiotic Education, Prescription Opioid Use form. - Follow up: Emergency Department; When: As needed; Reason: Worsening of condition. Follow up: Private Physician; When: 2 - 3 days; Reason: Recheck today's complaints, Continuance of care, Re-evaluation by your physician. Signatures: Dispatcher [employer] EDTosin Zhang, RIANA-C BATTER DEPOSITOR-Caleb Duggan RN RN hj Corrections: (The following items were deleted from the chart) 11:09 10:58 01/15/2019 10:58 Discharged to Home. Impression: Weakness. Condition is Stable. hj Forms are Medication Reconciliation Form, Thank You Letter, Antibiotic Education, Prescription Opioid Use. Follow up: Emergency Department; When: As needed; Reason: Worsening of condition. Follow up: Private Physician; When: 2 - 3 days; Reason: Recheck today's complaints, Continuance of care, Re-evaluation by your physician. kb
[2019-01-15 11:14] VITALS: TEMP 98.1; O2SAT 100
[2019-01-15 11:15] VITALS: BP 143/73
[2019-01-15 11:27] LABS: Urine Blood NEGATIVE (NEG); Urine Glucose NEGATIVE (NEG); Urine Protein NEGATIVE (NEG); Urine Specific Gravity 1.005 (1.005-1.030); Urine pH 6.5 (5.0-7.0)
--- NOTE | 2019-01-16 07:09 | EKG ---
Test Date: 2019-01-15 Test Time: 10:16:01 Supply Manager: VIRAJ MEASUREMENT RESULTS: Intervals: Rate: 65 [place]: 188 QRSD: 80 QT: 408 QTc: 424 [place]: P: 62 [place]: 188 QRS: -22 T: 66 INTERPRETIVE STATEMENTS: Normal sinus rhythm Possible Inferior infarct, age undetermined Abnormal ECG Compared to ECG 01/04/2019 08:08:13 Possible myocardial infarct finding now present Sinus bradycardia no longer present First degree AV block no longer present Electronically Signed On 01-16-19 07:08:55 CDT by Pawel Michel
== END 2019-01-15 11:09 | disposition home or self-care (01) ==
LOC: ER 09:46
DX: R53.1 Weakness (principal); I10 Essential (primary) hypertension; Z88.5 Allergy status to narcotic agent; Z88.6 Allergy status to analgesic agent; Z88.8 Allergy status to other drugs, medicaments and biological substances; Z86.73 Personal history of transient ischemic attack (TIA), and cerebral infarction without residual deficits
CPT/HCPCS: 36415; 71045; 80048; 81003; 83735; 83880; 84484; 85025; 85610; 93005

== ENCOUNTER 2019-01-28 17:34 | Emergency (ER) | payer OTHER ==
--- OUTSIDE RECORDS SUMMARY | 2019-01-28 17:36 | XMS REPORT | Clinical Summary ---
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 01/27/2018 Social History Tobacco Use Types Packs/Day Years [...] Not on file 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 Shelf Model / Identifier Expiration Serial / Date Lot Zbigniew Iliac Aaa Leg 13x90 [id number] - [id number] CV Aneurysm Right: COOK:AORTIC 10/13/2020 [id number] / Implanted: Qty: 1 on 04/15/2018 by Arnaldo Avelar MD Groin INTERVENTION / [id number] Closure Sys Perclose Progl 6fr 80035-29 - [id number] Cardiovascular Left: WANG 11/18/2019 [id number] / Implanted: Qty: 1 on 04/15/2018 by Arnaldo Avelar MD Groin LAB: VAS DEV / [id number] Closure Sys Perclose Progl 6fr 38760-71 - [id number] Cardiovascular Left: WANG 01/18/2020 [id number] / Implanted: Qty: 1 on 04/15/2018 by Arnaldo Avelar MD Groin LAB: VAS DEV / [id number] Closure Sys Perclose Progl 6fr 64149-62 - [id number] Cardiovascular Right: WANG 11/18/2019 [id number] / Implanted: Qty: 1 on 04/15/2018 by Arnaldo Avelar MD Groin LAB: VAS DEV / [id number] Closure Sys Perclose Progl 6fr 94901-72 - [id number] Cardiovascular Right: WANG 11/18/2019 [id number] / Implanted: Qty: 1 on 04/15/2018 by Arnaldo Avelar MD Groin LAB: VAS DEV / [id number] [id number] Endovascular Graft N/A: Nano Think [facility] 02/27/2020 [id number] / Implanted: Qty: 1 on 04/15/2018 by Arnaldo Avelar MD Groin / [id number] Iliac Leg Graft Right: Nano Think [facility] 12/28/2020 [id number] / Implanted: Qty: 1 on 04/15/2018 by [...] 428 ms QTC Calculation(Bazett) 413 ms P Hurley 55 degrees R Hurley -26 degrees T Hurley 48 degrees Sinus bradycardia with 1st degree A-V block with Premature atrial complexes Voltage criteria for left ventricular hypertrophy Inferior infarct , age undetermined Anterolateral infarct , age undetermined Abnormal ECG No previous ECGs available ECG 12-LEAD Routine 04/14/2018 1:13 PM CDT Thoracic aortic Results for this aneurysm without procedure are in the rupture (HCC) results section. after 01/27/2018 Results RHYTHM STRIP - SCAN (01/05/2019 9:21 AM CDT)Only the most recent of2 resultswithin the time period is included. Narrative Performed At VASCULAR DIAGRAM -SCAN (04/21/2018 8:40 AM CDT) Narrative Performed At XR chest 1 view portable / bedside (04/19/2018 9:48 AM CDT)Only the most recent of5 resultswithin the time period is included. Specimen Narrative Performed At FINAL REPORT [facility] Chest one view INDICATION: EVAR COMPARISON: 04/18/2018 [...] MD Report Verified Date/Time:04/19/2018 10:16:05 Reading Location: [facility] Radiology Reading Room Procedure Note Interface, External [...] Report Verified Date/Time: 04/19/2018 10:16:05 Reading Location: [facility] Rad[facility] Reading Room Performing Organization Address [facility]edc Phone Number [facility] aPTT (04/19/2018 4:02 AM CDT)Only the most recent of5 resultswithin the time period is included. PTT 36.6 (H) 22.5 - 36.0 seconds [facility] Specimen Blood Performing Organization Address [facility] Center[facility]ive Phone Number [address] [address] CENTER Prothrombin time/INR (04/19/2018 4:02 AM CDT)Only the most recent of6 resultswithin the time period is included. Protime 15.9 (H) 11.7 - 14.7 seconds [facility] INR 1.3 <=5.9 [facility] Specimen Blood Narrative Performed At [facility] RECOMMENDED COUMADIN/WARFARIN INR THERAPY RANGES STANDARD DOSE: 2.0 - 3.0 Includes: PROPHYLAXIS for venous thrombosis, systemic embolization; TREATMENT for venous thrombosis and/or pulmonary embolus. HIGH RISK: Target INR is 2.5-3.5 for patients with mechanical heart valves. Performing Organization Address [facility]/[employer] Phone Number [address] [address] [phone] CENTER CBC (Hemogram only) (04/19/2018 4:02 AM CDT)Only the most recent of4 resultswithin the time period is included. WBC 9.5 3.5 - 10.5 K/L [facility] RBC 3.64 (L) 3.93 - 5.22 M/L [facility] Hemoglobin 10.6 (L) 11.2 - 15.7 GM/DL [facility] Hematocrit 33.8 (L) 34.1 - 44.9 % [facility] MCV 92.9 79.4 - 94.8 fL [facility] MCH 29.1 25.6 - 32.2 pg [facility] MCHC 31.4 (L) 32.2 - 35.5 GM/DL [facility] RDW 14.1 11.7 - 14.4 % [facility] Platelets 232 150 - 450 K/CU MM [facility] MPV 10.9 9.4 - 12.3 fL [facility] nRBC 0 0 - 0 /100 WBC [facility] Specimen Blood Performing Organization Address City/[facility] Cent[facility]ode Phone Number [address] [address] [phone] CENTER Phosphorus (04/19/2018 4:02 AM CDT)Only the most recent of5 resultswithin the time period is included. Phosphorus 4.0 2.3 - 4.7 mg/dL [facility] Specimen Blood Performing Organization Address City/[facility]/Zipcode Phone Number [address] [address] [phone] CENTER Magnesium (04/19/2018 4:02 AM CDT)Only the most recent of4 resultswithin the time period is included. Magnesium 2.2 1.6 - 2.6 mg/dL [facility] Specimen Blood Performing Organization Address City/[facility]/Zipcode Phone Number [facility] [address] [place] [address] [place] Basic Metabolic Panel (04/19/2018 4:02 AM CDT)Only the most recent of5 resultswithin the time period is included. Sodium 141 136 - 145 meq/L [facility] Potassium 3.6 3.5 - 5.1 meq/L [facility] Chloride 106 98 - 107 meq/L [facility] CO2 28 22 - 29 meq/L [facility] BUN 20 7 - 21 mg/dL [facility] Creatinine 0.87 0.57 - 1.25 mg/dL [facility] Glucose 122 (H) 70 - 105 mg/dL [facility] Calcium 9.0 8.4 - 10.2 mg/dL [facility] EGFR 63Comment: ESTIMATED GFR IS mL/min/1.73 sq m [facility] NOT ACCURATE CREATININE [facility] CLEARANCE IN PREDICTING GLOMERULAR FILTRATION RATE. ESTIMATED GFR IS NOT APPLICABLE FOR DIALYSIS PATIENTS. Specimen Blood Performing Organization Address City/State/Zipcode Phone Number [facility] [address] [place] [address] [phone] [place] TRANSFUSION SERVICE REPORT - SCAN (04/15/2018 5:54 PM CDT) Narrative Performed At XR abdomen / KUB 1 view (04/15/2018 11:46 AM CDT) Specimen Narrative Performed At FINAL REPORT [employer] CLINICAL HISTORY: Postop AAA TECHNIQUE: Supine abdomen COMPARISON: None IMPRESSION: The bowel gas pattern is nonspecific. Free air and air-fluid levels are not seen but cannot be definitively excluded on the supine view. There is vicarious excretion of contrast in the bilateral nephroureteral collecting systems. There is an aortobiiliac stent. Signed: Hardik Godwin MD Report Verified Date/Time:04/15/2018 12:39:57 Reading Location: [facility] Radiology Reading Room Procedure Note Interface, External [...] Report Verified Date/Time: 04/15/2018 12:39:57 Reading Location: [facility] Radiology Reading Room Performing Organization Address City/[facility]/Zipcode Phone Number [facility] Calcium, Ionized (04/15/2018 11:06 AM CDT) Calcium, Ion 1.25 1.12 - 1.27 mmol/L [facility] pH, Blood 7.37 [facility] Specimen Blood Performing Organization Address City/[facility]/Zipcode Phone Number [address] [address] [phone] CENTER CBC with platelet count + automated diff (04/15/2018 11:05 AM CDT)Only the most recent of2 resultswithin the time period is included. WBC 12.0 (H) 3.5 - 10.5 K/L [facility] RBC 3.84 (L) 3.93 - 5.22 M/L [facility] Hemoglobin 11.4 11.2 - 15.7 GM/DL [facility] Hematocrit 35.7 34.1 - 44.9 % [facility] MCV 93.0 79.4 - 94.8 fL [facility] MCH 29.7 25.6 - 32.2 pg [facility] MCHC 31.9 (L) 32.2 - 35.5 GM/DL [facility] RDW 14.1 11.7 - 14.4 % [facility] Platelets 207 150 - 450 K/CU MM [facility] MPV 10.7 9.4 - 12.3 fL [facility] nRBC 0 0 - 0 /100 WBC [facility] % Neutros 77 % [facility] % Lymphs 15 % [facility] % Monos 6 % [facility] % Eos 1 % [facility] % Baso 1 % [facility] # Neutros 9.14 (H) 1.56 - 6.13 K/L [facility] # Lymphs 1.78 1.18 - 3.74 K/L [facility] # Monos 0.72 (H) 0.24 - 0.36 K/L [facility] # Eos 0.16 0.04 - 0.36 K/L [facility] # Baso 0.06 0.01 - 0.08 K/L [facility] Immature Granulocytes-Relative 1 0 - 1 % [facility] Specimen Blood Performing Organization Address City/State/Zipcode Phone Number [address] [address] [phone] [place] POC ACTIVATED CLOTTING TIME (04/15/2018 9:02 AM CDT) Activated Clotting Time 257Comment: TESTED AT sec [address] [address] Specimen Blood Performing Organization Address City/[facility] Centercode Phone Number [address] [address] [place] XR chest 2 views (04/14/2018 1:39 PM [...] MD Report Verified Date/Time:04/14/2018 14:12:09 Reading Location: [address] Radiology Reading Room Procedure Note Interface, [...] Report Verified Date/Time: 04/14/2018 14:12:09 Reading Location: [address] Radiology Reading Room Performing Organization Address City/State/Zipcode Phone Number [facility] Urinalysis w/Microscopic (04/14/2018 1:18 PM CDT) Color, UA Yellow [facility] Clarity, UA Clear [facility] Specific [place], UA 1.010 1.001 - 1.035 [facility] pH, UA 6.5 5.0 - 8.0 [facility] Protein, UA 20 mg/dL (A) Negative [facility] Glucose, UA Negative Negative [facility] Ketones, UA Negative Negative [facility] Bilirubin, UA Negative Negative [facility] Blood, UA Negative Negative [facility] Nitrite, UA Negative Negative [facility] Leukocytes, UA Negative Negative [facility] Urobilinogen, UA 0.2 0.2 - 1.0 mg/dL [facility] RBC, UA <1 /HPF [facility] WBC, UA <1 /HPF [facility] Mucus Rare [facility] Squam Epithel, UA <1 /HPF [facility] Hyaline Casts, UA 4 /LPF [facility] Specimen Source [facility] Specimen Urine Performing Organization Address City/[facility] Centercode Phone Number [address] [address] [phone] CENTER Type and screen, automated (04/14/2018 1:17 PM CDT) ABO/RH AUTOMATED (GAMA) A POSITIVE [facility] Ab Scrn NEGATIVE [facility] Specimen Blood Performing Organization Address City/[facility] Centercode Phone Number [address] [address] HIV-1 Antigen with HIV-1/2 Antibody (04/14/2018 1:17 PM CDT) HIV-1 Antigen with HIV 1&2 NON-REACTIVE Nonreactive [facility] Specimen Blood Performing Organization Address City/[facility] Centercode Phone Number [address] [address] C[place] Hepatitis B Panel (04/14/2018 1:17 PM CDT) Hep B Core Total Ab NON-REACTIVE Nonreactive [facility] Hep B S Ab 63.1 (H) <8.0 mIU/mL [facility] hepatitis B Surface Ag NON-REACTIVE Nonreactive [facility] Specimen Blood Performing Organization Address City/[facility] Centercode Phone Number [address] [address] [phone] CENTER Hepatitis C antibody (04/14/2018 1:17 PM CDT) Hepatitis C Ab NON-REACTIVE Nonreactive [facility] Specimen Blood Performing Organization Address [facility] Centercodc Phone Number [address] [address] CENTER Reticulocyte count (04/14/2018 1:17 PM CDT) % Retic 1.0 0.5 - 1.7 % [facility] Specimen Blood Performing Organization Address [facility]c Phone Number [address] [address] C[place] Lipase (04/14/2018 1:17 PM CDT) Lipase 10 8 - 78 U/L [facility] Specimen Blood Performing Organization Address [facility] Phone Number [address] [address] [place] Lactate dehydrogenase (LDH) (04/14/2018 1:17 PM CDT) LDH 238 (H) 125 - 220 U/L [facility] Specimen Blood Performing Organization Address [facility]c Phone Number [address] [address] [phone] CENTER Amylase (04/14/2018 1:17 PM CDT) Amylase 40 25 - 125 U/L [facility] Specimen Blood Performing Organization Address [facility] Phone Number [address] [address] [place] Hepatic function panel (04/14/2018 1:17 PM CDT) Protein, Total 7.1 6.0 - 8.3 gm/dL [facility] Albumin 4.0 3.5 - 5.0 g/dL [facility] Total Bilirubin 0.4 0.2 - 1.2 mg/dL [facility] Bilirubin, Direct 0.2 0.1 - 0.5 mg/dL [facility] Alkaline Phosphatase 135 40 - 150 U/L [facility] AST 22 5 - 34 U/L [facility] ALT 22 6 - 55 U/L [facility] Specimen Blood Performing Organization Address City/State/Zipcode Phone Number [facility] [address] [place] [address] CENTER ECG 12 lead (04/14/2018 1:13 PM CDT) Specimen Narrative Performed At Ventricular Rate 56 BPM GE MUSE Atrial Rate 56 BPM P-R Interval 218 ms QRS Duration 70 ms Q-T Interval 428 ms QTC Calculation(Bazett) 413 ms P Hurley 55 degrees R Hurley -26 degrees T Hurley 48 degrees Sinus bradycardia with 1st degree [...] 428 ms QTC Calculation(Bazett) 413 ms P Hurley 55 degrees R Hurley -26 degrees T Hurley 48 degrees Sinus bradycardia with 1st degree A-V block with Premature atrial complexes Voltage criteria for left ventricular hypertrophy Inferior infarct , age undetermined Anterolateral infarct , age undetermined Abnormal ECG No previous ECGs available Confirmed by MD JOHNSON JOSEPH P ([id number]) on 04/15/2018 5:58:45 AM Performing Organization Address City/State/Zipcode Phone Number MONIE MUSE after 01/27/2018 Insurance Payer Benefit Plan / Group Subscriber ID Type Phone Address MEDICARE MEDICARE A B xxxxxxxxxx Medicare MCR SUPPLEMENT/[employer] xxxxxxxx [facility] Advance Directives For more information, please contact:[address] [phone] Code Status Date Activated Date Inactivated Comments Full Code 04/15/2018 10:55 AM 04/19/2018 6:23 PM This code status was determined by: Patient Full Code 04/15/2018 6:03 AM 04/15/2018 10:55 AM This code status was determined by: Patient
--- OUTSIDE RECORDS SUMMARY | 2019-01-28 17:37 | XMS REPORT ---
:1940 Author Organization [facility] Address [address] [place] [address] Care Team Providers Name Role Phone DOMINIC [...] ID: VIEW, NON DEPT EVARShould this be [phone] Chest one view performed at the INDICATION: [...] Talaveraort Verified Date/Time: 04/19/2018 10:16:05 Reading Location: [facility] Reading Room PHORUS 2018-04-19 05:21:00 Test Item Value Reference Range Comments PHOSPHORUS (BEAKER) (test tczk=488) 4.0 mg/dL 2.3-4.7 [id number] 05:21:00 Test Item Value Reference Range Comments MAGNESIUM (BEAKER) (test upxg=344) 2.2 mg/dL 1.6-2.6 BASIC METABOLIC [id number] 05:21:00 Test Item Value Reference Range Comments SODIUM (BEAKER) (test 141 meq/L 136-145 ofvw=942) POTASSIUM (BEAKER) (test 3.6 meq/L 3.5-5.1 akci=099) CHLORIDE (BEAKER) (test 106 meq/L 98-107 kpsg=166) CO2 (BEAKER) (test 28 meq/L 22-29 fexc=315) BLOOD UREA NITROGEN 20 mg/dL 7-21 (BEAKER) (test ulvr=087) CREATININE (BEAKER) (test 0.87 mg/dL 0.57-1.25 tjcg=731) GLUCOSE RANDOM (BEAKER) 122 mg/dL 70-105 (test nwob=096) CALCIUM (BEAKER) (test 9.0 mg/dL 8.4-10.2 jkcq=979) EGFR (BEAKER) (test 63 mL/min/1.73 sq m ESTIMATED GFR IS NOT dyzm=8208) ACCURATE CREATININE CLEARANCE IN PREDICTING GLOMERULAR FILTRATION RATE. ESTIMATED GFR IS NOT APPLICABLE FOR DIALYSIS PATIENTS. [id number] 04:58:00 Test Item Value Reference Range Comments PARTIAL THROMBOPLASTIN TIME (BEAKER) (test 36.6 seconds 22.5-36.0 ukhp=792) PROTHROMBIN TIME/[id number] 04:57:00 Test Item Value Reference Range Comments PROTIME (BEAKER) (test ayzx=672) 15.9 seconds 11.7-14.7 INR (BEAKER) (test eakx=645) 1.3 <=5.9 RECOMMENDED COUMADIN/WARFARIN INR THERAPY RANGESSTANDARD DOSE: 2.0 - 3.0 Includes: PROPHYLAXIS forvenous thrombosis, systemic embolization; TREATMENT for venous thrombosis and/or pulmonary embolus.HIGH RISK: Target INR is 2.5-3.5 for patients with mechanical heart valves.CBC (HEMOGRAM ONLY)2018-04-19 04:47:00 Test Item Value Reference Range Comments WHITE BLOOD CELL COUNT (BEAKER) (test hzmb=657) 9.5 K/ L 3.5-10.5 RED BLOOD CELL COUNT (BEAKER) (test xvnl=058) 3.64 M/ L 3.93-5.22 HEMOGLOBIN (BEAKER) (test gwqg=911) 10.6 GM/DL 11.2-15.7 HEMATOCRIT (BEAKER) (test dsuc=941) 33.8 % 34.1-44.9 MEAN CORPUSCULAR VOLUME (BEAKER) (test olko=881) 92.9 fL 79.4-94.8 MEAN CORPUSCULAR HEMOGLOBIN (BEAKER) (test 29.1 pg 25.6-32.2 iwkg=587) MEAN CORPUSCULAR HEMOGLOBIN CONC (BEAKER) (test 31.4 GM/DL 32.2-35.5 fvzv=764) RED CELL DISTRIBUTION WIDTH (BEAKER) (test 14.1 % 11.7-14.4 ilvf=991) PLATELET COUNT (BEAKER) (test gfpr=118) 232 K/CU MM 150-450 MEAN PLATELET VOLUME (BEAKER) (test gobv=382) 10.9 fL 9.4-12.3 NUCLEATED RED BLOOD CELLS (BEAKER) (test 0 /100 WBC 0-0 izco=637) RAD, CHEST, 1 VIEW, NON [id number] 08:00:00Reason for exam:->S/P EVARShould this be performed [...] Talavera Verified Date/Time: 04/18/2018 08:00:53 Reading Location: [facility] Reading Room [id number] 05:25:00 Test Item Value Reference Range Comments PHOSPHORUS (BEAKER) (test kjjm=747) 3.6 mg/dL 2.3-4.7 [id number] 05:25:00 Test Item Value Reference Range Comments MAGNESIUM (BEAKER) (test twdm=678) 2.2 mg/dL 1.6-2.6 BASIC METABOLIC [id number] 05:25:00 Test Item Value Reference Range Comments SODIUM (BEAKER) (test 139 meq/L 136-145 sbpb=547) POTASSIUM (BEAKER) (test 3.2 meq/L 3.5-5.1 tzcs=076) CHLORIDE (BEAKER) (test 103 meq/L 98-107 ewja=197) CO2 (BEAKER) (test 25 meq/L 22-29 yvjj=040) BLOOD UREA NITROGEN 17 mg/dL 7-21 (BEAKER) (test omgi=345) CREATININE (BEAKER) (test 0.86 mg/dL 0.57-1.25 yldi=795) GLUCOSE RANDOM (BEAKER) 150 mg/dL 70-105 (test cwun=844) CALCIUM (BEAKER) (test 9.6 mg/dL 8.4-10.2 wbej=296) EGFR (BEAKER) (test 64 mL/min/1.73 sq m ESTIMATED GFR IS NOT nzbh=5205) ACCURATE CREATININE CLEARANCE IN PREDICTING GLOMERULAR FILTRATION RATE. ESTIMATED GFR IS NOT APPLICABLE FOR DIALYSIS PATIENTS. [id number] 05:06:00 Test Item Value Reference Range Comments PARTIAL THROMBOPLASTIN TIME (BEAKER) (test 36.5 seconds 22.5-36.0 gssw=457) PROTHROMBIN TIME/[id number] 05:05:00 Test Item Value Reference Range Comments PROTIME (BEAKER) (test nika=248) 16.5 seconds 11.7-14.7 INR (BEAKER) (test rtss=188) 1.3 <=5.9 RECOMMENDED COUMADIN/WARFARIN INR THERAPY RANGESSTANDARD DOSE: 2.0 - 3.0 Includes: PROPHYLAXIS forvenous thrombosis, systemic embolization; TREATMENT for venous thrombosis and/or pulmonary embolus.HIGH RISK: Target INR is 2.5-3.5 for patients with mechanical heart valves.CBC (HEMOGRAM ONLY)2018-04-18 04:52:00 Test Item Value Reference Range Comments WHITE BLOOD CELL COUNT (BEAKER) (test rnlz=966) 11.2 K/ L 3.5-10.5 RED BLOOD CELL COUNT (BEAKER) (test sqos=254) 3.90 M/ L 3.93-5.22 HEMOGLOBIN (BEAKER) (test wwvx=483) 11.3 GM/DL 11.2-15.7 HEMATOCRIT (BEAKER) (test vfsv=636) 35.7 % 34.1-44.9 MEAN CORPUSCULAR VOLUME (BEAKER) (test vxkr=511) 91.5 fL 79.4-94.8 MEAN CORPUSCULAR HEMOGLOBIN (BEAKER) (test 29.0 pg 25.6-32.2 vnlq=327) MEAN CORPUSCULAR HEMOGLOBIN CONC (BEAKER) (test 31.7 GM/DL 32.2-35.5 zmbx=191) RED CELL DISTRIBUTION WIDTH (BEAKER) (test 14.2 % 11.7-14.4 mzmj=195) PLATELET COUNT (BEAKER) (test ymqa=839) 208 K/CU MM 150-450 MEAN PLATELET VOLUME (BEAKER) (test simr=104) 10.6 fL 9.4-12.3 NUCLEATED RED BLOOD CELLS (BEAKER) (test 0 /100 WBC 0-0 andq=410) RAD, CHEST, 1 VIEW, NON [id number] 10:31:00Reason for exam:->S/P EVARShould this be performed at the bedside?->YesFINAL REPORT Chest, one view. HISTORY: Status post aortic repair COMPARISON: 2017 IMPRESSION: No significant change. Unchanged tortuosity and ectasia of the thoracic aorta.Mild interstitial edema. No large pleural effusion or pneumothorax. Signed: Gera Hernandez Verified Date/Time: 04/17/2018 10: 31:41 Reading Location: [facility] C013Y CT Body Reading Room [id number] 06: 43:00 Test Item Value Reference Range Comments PHOSPHORUS (BEAKER) (test xtds=046) 3.3 mg/dL 2.3-4.7 [id number] 06:43:00 Test Item Value Reference Range Comments MAGNESIUM (BEAKER) (test cxmb=581) 2.0 mg/dL 1.6-2.6 [id number] 06:23:00 Test Item Value Reference Range Comments PARTIAL THROMBOPLASTIN TIME (BEAKER) (test 36.4 seconds 22.5-36.0 leno=500) PROTHROMBIN TIME/[id number] 06:22:00 Test Item Value Reference Range Comments PROTIME (BEAKER) (test xoqf=282) 17.3 seconds 11.7-14.7 INR (BEAKER) (test whgh=459) 1.4 <=5.9 RECOMMENDED COUMADIN/WARFARIN INR THERAPY RANGESSTANDARD DOSE: 2.0 - 3.0 Includes: PROPHYLAXIS forvenous thrombosis, systemic embolization; TREATMENT for venous thrombosis and/or pulmonary embolus.HIGH RISK: Target INR is 2.5-3.5 for patients with mechanical heart valves.CBC (HEMOGRAM ONLY)2018-04-17 06:13:00 Test Item Value Reference Range Comments WHITE BLOOD CELL COUNT (BEAKER) (test ddbo=952) 13.2 K/ L 3.5-10.5 RED BLOOD CELL COUNT (BEAKER) (test bsfr=851) 3.84 M/ L 3.93-5.22 HEMOGLOBIN (BEAKER) (test jnyc=079) 11.5 GM/DL 11.2-15.7 HEMATOCRIT (BEAKER) (test stsl=423) 34.9 % 34.1-44.9 MEAN CORPUSCULAR VOLUME (BEAKER) (test yhud=360) 90.9 fL 79.4-94.8 MEAN CORPUSCULAR HEMOGLOBIN (BEAKER) (test 29.9 pg 25.6-32.2 cxyc=392) MEAN CORPUSCULAR HEMOGLOBIN CONC (BEAKER) (test 33.0 GM/DL 32.2-35.5 txeb=813) RED CELL DISTRIBUTION WIDTH (BEAKER) (test 14.0 % 11.7-14.4 yqbl=522) PLATELET COUNT (BEAKER) (test megc=854) 201 K/CU MM 150-450 MEAN PLATELET VOLUME (BEAKER) (test losb=498) 10.6 fL 9.4-12.3 NUCLEATED RED BLOOD CELLS (BEAKER) (test 0 /100 WBC 0-0 bvib=218) RAD, CHEST, 1 VIEW, NON [id number] 09:02:00Reason for exam:->S/P EVARShould this be performed [...] MDReport Verified Date/Time: 04/16/2018 09:02:11 Reading Location: [facility] B1 C013Y CT Body Reading Room [id number] 06:11:00 Test Item Value Reference Range Comments PHOSPHORUS (BEAKER) (test wjwy=401) 1.9 mg/dL 2.3-4.7 [id number] 06:11:00 Test Item Value Reference Range Comments MAGNESIUM (BEAKER) (test mbsh=371) 2.0 mg/dL 1.6-2.6 BASIC METABOLIC [id number] 06:11:00 Test Item Value Reference Range Comments SODIUM (BEAKER) (test 137 meq/L 136-145 vcgy=532) POTASSIUM (BEAKER) (test 3.2 meq/L 3.5-5.1 tine=195) CHLORIDE (BEAKER) (test 104 meq/L 98-107 spcd=702) CO2 (BEAKER) (test 24 meq/L 22-29 jqas=115) BLOOD UREA NITROGEN 7 mg/dL 7-21 (BEAKER) (test mlgf=689) CREATININE (BEAKER) (test 0.86 mg/dL 0.57-1.25 njck=705) GLUCOSE RANDOM (BEAKER) 179 mg/dL 70-105 (test vyvn=640) CALCIUM (BEAKER) (test 9.0 mg/dL 8.4-10.2 ffjy=100) EGFR (BEAKER) (test 64 mL/min/1.73 sq m ESTIMATED GFR IS NOT djpp=4237) ACCURATE CREATININE CLEARANCE IN PREDICTING GLOMERULAR FILTRATION RATE. ESTIMATED GFR IS NOT APPLICABLE FOR DIALYSIS PATIENTS. [id number] 05:46:00 Test Item Value Reference Range Comments PARTIAL THROMBOPLASTIN TIME (BEAKER) (test 32.0 seconds 22.5-36.0 wqlk=634) PROTHROMBIN TIME/[id number] 05:45:00 Test Item Value Reference Range Comments PROTIME (BEAKER) (test lsvc=632) 15.0 seconds 11.7-14.7 INR (BEAKER) (test lals=828) 1.2 <=5.9 RECOMMENDED COUMADIN/WARFARIN INR THERAPY RANGESSTANDARD DOSE: 2.0 - 3.0 Includes: PROPHYLAXIS forvenous thrombosis, systemic embolization; TREATMENT for venous thrombosis and/or pulmonary embolus.HIGH RISK: Target INR is 2.5-3.5 for patients with mechanical heart valves.CBC (HEMOGRAM ONLY)2018-04-16 05:31:00 Test Item Value Reference Range Comments WHITE BLOOD CELL COUNT (BEAKER) (test oadr=651) 12.0 K/ L 3.5-10.5 RED BLOOD CELL COUNT (BEAKER) (test xufx=676) 4.19 M/ L 3.93-5.22 HEMOGLOBIN (BEAKER) (test hcyw=703) 12.4 GM/DL 11.2-15.7 HEMATOCRIT (BEAKER) (test rtfo=774) 38.6 % 34.1-44.9 MEAN CORPUSCULAR VOLUME (BEAKER) (test nbbw=478) 92.1 fL 79.4-94.8 MEAN CORPUSCULAR HEMOGLOBIN (BEAKER) (test 29.6 pg 25.6-32.2 zxkq=731) MEAN CORPUSCULAR HEMOGLOBIN CONC (BEAKER) (test 32.1 GM/DL 32.2-35.5 ozfw=085) RED CELL DISTRIBUTION WIDTH (BEAKER) (test 14.0 % 11.7-14.4 mydj=590) PLATELET COUNT (BEAKER) (test etsw=155) 223 K/CU MM 150-450 MEAN PLATELET VOLUME (BEAKER) (test qxkg=411) 10.3 fL 9.4-12.3 NUCLEATED RED BLOOD CELLS (BEAKER) (test 0 /100 WBC 0-0 tjer=423) [id number] 13:56:00 Test Item Value Reference Range Comments ACTIVATED CLOTTING TIME [address] [facility] [address] (BEAKER) (test cmcm=724) [place] [address] RAD, ABDOMEN/KUB, 1 VIEW [id number] 12:39:00Reason for exam:->Postop AAAFINAL REPORT CLINICAL HISTORY: [...] GodwinMDReport Verified Date/Time: 2017 12:39:57 Reading Location: [facility] Reading Room RAD, CHEST , 1 VIEW, NON [id number] 12:38:00For chest painReason for exam:->post opShould this be performed at the bedside?->YesFINAL REPORT CLINICAL HISTORY: post op TECHNIQUE: 1 view of the chest. COMPARISON: 04/10/2018 IMPRESSION: There are no focal infiltrates or effusions. Cardiomegaly is again seen with tortuosity of the thoracic aorta. Signed: Hardik Godwin MDReport Verified Date/Time: 04/15/201812:38:40 Reading Location: [facility] Reading Room [id number] 11:51:00 Test Item Value Reference Range Comments PHOSPHORUS (BEAKER) (test xomh=763) 3.2 mg/dL 2.3-4.7 BASIC METABOLIC [id number] 11:51:00 Test Item Value Reference Range Comments SODIUM (BEAKER) (test 140 meq/L 136-145 akbd=228) POTASSIUM (BEAKER) (test 3.8 meq/L 3.5-5.1 ipux=389) CHLORIDE (BEAKER) (test 109 meq/L 98-107 xbuw=195) CO2 (BEAKER) (test 24 meq/L 22-29 uvbk=044) BLOOD UREA NITROGEN 12 mg/dL 7-21 (BEAKER) (test rxvs=324) CREATININE (BEAKER) (test 0.77 mg/dL 0.57-1.25 pyqi=281) GLUCOSE RANDOM (BEAKER) 176 mg/dL 70-105 (test oqmp=444) CALCIUM (BEAKER) (test 9.7 mg/dL 8.4-10.2 nwts=542) EGFR (BEAKER) (test 73 mL/min/1.73 sq m ESTIMATED GFR IS NOT xihl=9991) ACCURATE CREATININE CLEARANCE IN PREDICTING GLOMERULAR FILTRATION RATE. ESTIMATED GFR IS NOT APPLICABLE FOR DIALYSIS PATIENTS. CBC W/PLT COUNT & AUTO [id number] 11:23:00 Test Item Value Reference Range Comments WHITE BLOOD CELL COUNT (BEAKER) (test qbfd=310) 12.0 K/ L 3.5-10.5 RED BLOOD CELL COUNT (BEAKER) (test sfrm=306) 3.84 M/ L 3.93-5.22 HEMOGLOBIN (BEAKER) (test movu=054) 11.4 GM/DL 11.2-15.7 HEMATOCRIT (BEAKER) (test ytnb=271) 35.7 % 34.1-44.9 MEAN CORPUSCULAR VOLUME (BEAKER) (test vkeu=912) 93.0 fL 79.4-94.8 MEAN CORPUSCULAR HEMOGLOBIN (BEAKER) (test 29.7 pg 25.6-32.2 phyo=076) MEAN CORPUSCULAR HEMOGLOBIN CONC (BEAKER) (test 31.9 GM/DL 32.2-35.5 dsul=684) RED CELL DISTRIBUTION WIDTH (BEAKER) (test 14.1 % 11.7-14.4 plvg=929) PLATELET COUNT (BEAKER) (test yzya=925) 207 K/CU MM 150-450 MEAN PLATELET VOLUME (BEAKER) (test bxlr=964) 10.7 fL 9.4-12.3 NUCLEATED RED BLOOD CELLS (BEAKER) (test 0 /100 WBC 0-0 yjey=916) NEUTROPHILS RELATIVE PERCENT (BEAKER) (test 77 % tdhk=015) LYMPHOCYTES RELATIVE PERCENT (BEAKER) (test 15 % fpae=377) MONOCYTES RELATIVE PERCENT (BEAKER) (test 6 % lfom=038) EOSINOPHILS RELATIVE PERCENT (BEAKER) (test 1 % oqxk=362) BASOPHILS RELATIVE PERCENT (BEAKER) (test 1 % tktf=610) NEUTROPHILS ABSOLUTE COUNT (BEAKER) (test 9.14 K/ L 1.56-6.13 akbd=538) LYMPHOCYTES ABSOLUTE COUNT (BEAKER) (test 1.78 K/ L 1.18-3.74 xfyz=963) MONOCYTES ABSOLUTE COUNT (BEAKER) (test 0.72 K/ L 0.24-0.36 gufi=998) EOSINOPHILS ABSOLUTE COUNT (BEAKER) (test 0.16 K/ L 0.04-0.36 ydon=794) BASOPHILS ABSOLUTE COUNT (BEAKER) (test 0.06 K/ L 0.01-0.08 owze=887) IMMATURE GRANULOCYTES-RELATIVE PERCENT (BEAKER) 1 % 0-1 (test ifof=9428) PROTHROMBIN TIME/[id number] 11:22:00 Test Item Value Reference Range Comments PROTIME (BEAKER) (test chav=541) 15.7 seconds 11.7-14.7 INR (BEAKER) (test fagj=962) 1.3 <=5.9 RECOMMENDED COUMADIN/WARFARIN INR THERAPY RANGESSTANDARD DOSE: 2.0 - 3.0 Includes: PROPHYLAXIS forvenous thrombosis, systemic embolization; TREATMENT for venous thrombosis and/or pulmonary embolus.HIGH RISK: Target INR is 2.5-3.5 for patients with mechanical heart valves.CALCIUM, [id number] 11:06:00 Test Item Value Reference Range Comments CALCIUM IONIZED (BEAKER) (test zffc=554) 1.25 mmol/L 1.12-1.27 PH, BLOOD (BEAKER) (test gbfx=8012) 7.37 HEPATITIS C [id number] 15:18:00 Test Item Value Reference Range Comments HEPATITIS C ANTIBODY (BEAKER) (test yjxo=574) Nonreactive Nonreactive HEPATITIS B [id number] 15:18:00 Test Item Value Reference Range Comments HEPATITIS B CORE TOTAL ANTIBODY (BEAKER) (test Nonreactive Nonreactive ttkk=419) HEPATITIS B SURFACE ANTIBODY (BEAKER) (test 63.1 mIU/mL <8.0 rnkc=221) HEPATITIS B SURFACE ANTIGEN (2) (BEAKER) (test Nonreactive Nonreactive shbj=5489) HIV-1 ANTIGEN WITH HIV-1/2 [id number] 15:18:00 Test Item Value Reference Range Comments HIV-1 ANTIGEN WITH HIV 1\T\2 ANTIBODY (2) Nonreactive Nonreactive (BEAKER) (test huxg=4740) [id number] 15:08:00 Test Item Value Reference Range Comments LIPASE (BEAKER) (test sfgr=765) 10 U/L 8-78 [id number] 15:08:00 Test Item Value Reference Range Comments AMYLASE (BEAKER) (test wtpm=121) 40 U/L 25-125 BASIC METABOLIC [id number] 15:08:00 Test Item Value Reference Range Comments SODIUM (BEAKER) (test 141 meq/L 136-145 tiej=187) POTASSIUM (BEAKER) (test 3.6 meq/L 3.5-5.1 wdli=856) CHLORIDE (BEAKER) (test 104 meq/L 98-107 atfp=317) CO2 (BEAKER) (test 27 meq/L 22-29 mvsx=052) BLOOD UREA NITROGEN 12 mg/dL 7-21 (BEAKER) (test trwx=462) CREATININE (BEAKER) (test 0.86 mg/dL 0.57-1.25 onnf=465) GLUCOSE RANDOM (BEAKER) 112 mg/dL 70-105 (test uxnm=565) CALCIUM (BEAKER) (test 9.8 mg/dL 8.4-10.2 uyfx=532) EGFR (BEAKER) (test 64 mL/min/1.73 sq m ESTIMATED GFR IS NOT fqmq=2225) ACCURATE CREATININE CLEARANCE IN PREDICTING GLOMERULAR FILTRATION RATE. ESTIMATED GFR IS NOT APPLICABLE FOR DIALYSIS PATIENTS. HEPATIC FUNCTION [id number] 15:08:00 Test Item Value Reference Range Comments TOTAL PROTEIN (BEAKER) (test ddpb=859) 7.1 gm/dL 6.0-8.3 ALBUMIN (BEAKER) (test esqq=4108) 4.0 g/dL 3.5-5.0 BILIRUBIN TOTAL (BEAKER) (test yris=202) 0.4 mg/dL 0.2-1.2 BILIRUBIN DIRECT (BEAKER) (test bqqz=291) 0.2 mg/dL 0.1-0.5 ALKALINE PHOSPHATASE (BEAKER) (test mppp=867) 135 U/L 40-150 AST (SGOT) (BEAKER) (test igsw=648) 22 U/L 5-34 ALT (SGPT) (BEAKER) (test xops=384) 22 U/L 6-55 LACTATE DEHYDROGENASE (LDH)2018-04-14 15:08:00 Test Item Value Reference Range Comments LACTATE DEHYDROGENASE (BEAKER) (test htuo=506) 238 U/L 125-220 [id number] 14:47:00 Test Item Value Reference Range Comments PARTIAL THROMBOPLASTIN TIME (BEAKER) (test 31.9 seconds 22.5-36.0 txhn=944) PROTHROMBIN TIME/[id number] 14:46:00 Test Item Value Reference Range Comments PROTIME (BEAKER) (test seuv=448) 14.1 seconds 11.7-14.7 INR (BEAKER) (test cqam=546) 1.1 <=5.9 RECOMMENDED COUMADIN/WARFARIN INR THERAPY RANGESSTANDARD DOSE: 2.0 - 3.0 Includes: PROPHYLAXIS forvenous thrombosis, systemic embolization; TREATMENT for venous thrombosis and/or pulmonary embolus.HIGH RISK: Target INR is 2.5-3.5 for patients with mechanical heart valves.RETICULOCYTE [id number] 14:36:00 Test Item Value Reference Range Comments RETICULOCYTE COUNT PCT (BEAKER) (test gtmj=841) 1.0 % 0.5-1.7 CBC W/PLT COUNT & AUTO [id number] 14:36:00 Test Item Value Reference Range Comments WHITE BLOOD CELL COUNT (BEAKER) (test vnju=653) 9.3 K/ L 3.5-10.5 RED BLOOD CELL COUNT (BEAKER) (test vwip=663) 4.05 M/ L 3.93-5.22 HEMOGLOBIN (BEAKER) (test azyw=596) 12.2 GM/DL 11.2-15.7 HEMATOCRIT (BEAKER) (test argu=266) 37.2 % 34.1-44.9 MEAN CORPUSCULAR VOLUME (BEAKER) (test pedz=578) 91.9 fL 79.4-94.8 MEAN CORPUSCULAR HEMOGLOBIN (BEAKER) (test 30.1 pg 25.6-32.2 xbna=231) MEAN CORPUSCULAR HEMOGLOBIN CONC (BEAKER) (test 32.8 GM/DL 32.2-35.5 jehe=141) RED CELL DISTRIBUTION WIDTH (BEAKER) (test 14.2 % 11.7-14.4 wftw=317) PLATELET COUNT (BEAKER) (test lxxf=012) 259 K/CU MM 150-450 MEAN PLATELET VOLUME (BEAKER) (test zhks=600) 11.1 fL 9.4-12.3 NUCLEATED RED BLOOD CELLS (BEAKER) (test 0 /100 WBC 0-0 mpqy=849) NEUTROPHILS RELATIVE PERCENT (BEAKER) (test 70 % byax=760) LYMPHOCYTES RELATIVE PERCENT (BEAKER) (test 19 % rvcm=266) MONOCYTES RELATIVE PERCENT (BEAKER) (test 8 % pskc=380) EOSINOPHILS RELATIVE PERCENT (BEAKER) (test 2 % kpba=942) BASOPHILS RELATIVE PERCENT (BEAKER) (test 1 % lurt=743) NEUTROPHILS ABSOLUTE COUNT (BEAKER) (test 6.49 K/ L 1.56-6.13 hcjg=901) LYMPHOCYTES ABSOLUTE COUNT (BEAKER) (test 1.74 K/ L 1.18-3.74 kcns=117) MONOCYTES ABSOLUTE COUNT (BEAKER) (test 0.78 K/ L 0.24-0.36 yylo=959) EOSINOPHILS ABSOLUTE COUNT (BEAKER) (test 0.14 K/ L 0.04-0.36 fmfm=761) BASOPHILS ABSOLUTE COUNT (BEAKER) (test 0.07 K/ L 0.01-0.08 qnqf=680) IMMATURE GRANULOCYTES-RELATIVE PERCENT (BEAKER) 0 % 0-1 (test szee=6511) URINALYSIS W/ [id number] 14:25:00 Test Item Value Reference Range Comments COLOR (BEAKER) (test mpmr=204) Yellow CLARITY (BEAKER) (test twze=319) Clear SPECIFIC GRAVITY UA (BEAKER) (test jenn=141) 1.010 1.001-1.035 PH UA (BEAKER) (test azkh=522) 6.5 5.0-8.0 PROTEIN UA (BEAKER) (test drjp=704) 20 mg/dL Negative GLUCOSE UA (BEAKER) (test clzu=843) Negative Negative KETONES UA (BEAKER) (test apni=370) Negative Negative BILIRUBIN UA (BEAKER) (test knbt=866) Negative Negative BLOOD UA (BEAKER) (test prfh=094) Negative Negative NITRITE UA (BEAKER) (test xtwf=459) Negative Negative LEUKOCYTE ESTERASE UA (BEAKER) (test ellv=966) Negative Negative UROBILINOGEN UA (BEAKER) (test rxol=472) 0.2 mg/dL 0.2-1.0 RBC UA (BEAKER) (test afdn=420) < /HPF WBC UA (BEAKER) (test zhef=765) < /HPF MUCUS (BEAKER) (test oxcc=8924) Rare SQUAMOUS EPITHELIAL (BEAKER) (test oitm=070) < /HPF HYALINE CASTS (BEAKER) (test tqna=151) 4 /LPF SOURCE(BEAKER) (test tpfb=2632) RAD, CHEST, 2 [id number] 14:12:00Reason for exam:->surgeryFINAL REPORT Chest, two views HISTORY: Surgery COMPARISON: None. DISCUSSION: Lungs are clear without focal consolidation. Cardiomediastinal silhouette is unremarkable. Tortuosityand ectasia of the thoracic aorta. No acute osseous abnormality. No pleural effusion or pneumothorax. Visualized portions of the upper abdomen are unremarkable. IMPRESSION: No acute cardiopulmonary abnormality. Signed: Gera Hernandez MDReport Verified Date/Time: 04/14/2018 14:12:09 Reading Location: [address] Radiology Reading Room 02:12 PM
[2019-01-28 17:58] LABS: Absolute Lymphocytes (CBC) 1.6 K/uL (0.7-4.9); Absolute Monocytes 0.6 K/uL (0.1-1.3); Absolute Neutrophil 6.4 K/uL (1.8-8.0); Basophils % 0.6 % (0-1.3); Eosinophils % 1.7 % (0-4.4); Lymphocytes % 18.1 % (15.3-44.8); MPV 8.1 fL (7.6-11.3); RBC Red Blood Cell Count 3.87 M/uL (3.86-4.86)
[2019-01-28 18:16] LABS: Urine Blood TRACE (NEG); Urine Glucose NEGATIVE (NEG); Urine Protein 1+ (NEG); Urine Specific Gravity 1.015 (1.005-1.030); Urine pH 7.5 (5.0-7.0)
[2019-01-28] MEDS ORDERED: SIMETHICONE 80 MG TAB ONE (18:18)
--- NOTE | 2019-01-28 18:39 | RAD REPORT ---
EXAM DESCRIPTION: CT - Abdomen Pelvis Wo Contrast - 01/28/2019 6:29 pm CLINICAL HISTORY: Abdominal pain. ABD PAIN COMPARISON: Abdomen Pelvis W Contrast dated 01/05/2019 TECHNIQUE: CT imaging of the abdomen and pelvis was performed without contrast. Solid organ, bowel a nd vascular assessment is limited due to lack of IV and oral contrast. All CT scans are performed using dose optimization technique as appropriate and may include automated exposure control or mA/KV adjustment according to patient size. FINDINGS: Trace left pleural fluid is present. Atelectasis is noted in both lung bases posteriorly. Multiple liver cysts are present of varying sizes. No aggressive liver mass or biliary dilatation. Th e spleen, pancreas, adrenal glands and kidneys are within normal limits. No bowel obstruction, free air, free fluid or abscess. The appendix is normal. 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 The osseous structures are within normal limits. IMPRESSION: No acute intra-abdominal or pelvic findings. A limited non-contrast examination was performed as detailed.
[2019-01-28 19:18] LABS: ALT/SGPT 14 U/L (12-78); AST/SGOT 14 U/L (15-37); Albumin 2.5 g/dL (3.4-5.0); Alkaline Phosphatase 110 U/L (45-117); BUN Blood Urea Nitrogen 14 mg/dL (7-18); Bicarbonate 26 mmol/L (21-32); Bilirubin Direct < 0.1 mg/dL (0-0.2); Bilirubin Total 0.3 mg/dL (0.2-1.0); Glucose Level 180 mg/dL (74-106); Lipase 243 U/L (73-393); Protein, Total 6.4 g/dL (6.4-8.2); Sodium Level 141 mmol/L (136-145)
--- NOTE | 2019-01-28 19:23 | EDPHYS ---
Physician Documentation [facility] Name: Syl Sheikh Age: 78 yrs Sex: Female : 1940 Arrival Date: 01/28/2019 Time: 17:38 Bed 25 Private MD: ED Physician Gregg Silvestre HPI: 01/28 19:55 This 78 yrs old Female presents to ER via EMS with complaints of Abdominal snw Pain. 19:55 The patient presents with abdominal pain in the left lower quadrant. Onset: The snw symptoms/episode began/occurred suddenly, and became worse and became persistent. The symptoms do not radiate. Associated signs and symptoms: none. The symptoms are described as explosive. Severity of pain: At its worst the pain was incapacitating. The patient has not experienced similar symptoms in the past. The patient has been recently seen by a physician: a clinical technologist. pt with recent colonoscopy. Historical: - Allergies: 17:44 butorphanol tartrate; iw 17:44 Codeine; iw 17:44 Hydrocodone-Acetaminophen; iw 17:44 Lisinopril; iw 17:44 Stadol; iw 17:44 statin drugs; iw - Home Meds: 17:44 Alprazolam Oral [Active]; Coreg Oral [Active]; paroxetine Oral [Active]; iw - PMHx: 17:44 abdominal aortic aneurysm; CVA; Hypertension; TIA; iw - PSHx: 17:44 AAA repair 03/2018; iw - Immunization history:: Adult Immunizations up to date. - Social history:: Smoking status: Patient/guardian denies using tobacco. - Ebola Screening: : Patient negative for fever greater than or equal to 101.5 degrees Fahrenheit, and additional compatible Ebola Virus Disease symptoms Patient denies exposure to infectious person Patient denies travel to an Ebola-affected area in the 21 days before illness onset No symptoms or risks identified at this time. ROS: 19:55 Constitutional: Negative for fever, chills, and weight loss, Eyes: Negative for injury, snw pain, redness, and discharge, ENT: Negative for injury, pain, and discharge, Neck: Negative for injury, pain, and swelling, Cardiovascular: Negative for chest pain, palpitations, and edema, Respiratory: Negative for shortness of breath, cough, wheezing, and pleuritic chest pain, Back: Negative for injury and pain, : Negative for injury, bleeding, discharge, and swelling, MS/Extremity: Negative for injury and deformity, Skin: Negative for injury, rash, and discoloration, Neuro: Negative for headache, weakness, numbness, tingling, and seizure. 19:55 Abdomen/GI: Positive for abdominal pain, abdominal cramps, of the right lower quadrant. Exam: 19:45 Constitutional: This is a well developed, well nourished patient who is awake, alert, snw and in no acute distress. Head/Face: Normocephalic, atraumatic. Eyes: Pupils equal round and reactive to light, extra-ocular motions intact. Lids and lashes normal. Conjunctiva and sclera are non-icteric and not injected. Cornea within normal limits. Periorbital areas with no swelling, redness, or edema. ENT: Nares patent. No nasal discharge, no septal abnormalities noted. Tympanic membranes are normal and external auditory canals are clear. Oropharynx with no redness, swelling, or masses, exudates, or evidence of obstruction, uvula midline. Mucous membranes moist. Neck: Trachea midline, no thyromegaly or masses palpated, and no cervical lymphadenopathy. Supple, full range of motion without nuchal rigidity, or vertebral point tenderness. No Meningismus. Chest/axilla: Normal chest wall appearance and motion. Nontender with no deformity. No lesions are appreciated. Cardiovascular: Regular rate and rhythm with a normal S1 and S2. No gallops, murmurs, or rubs. Normal PMI, no JVD. No pulse deficits. Respiratory: Lungs have equal breath sounds bilaterally, clear to auscultation and percussion. No rales, rhonchi or wheezes noted. No increased work of breathing, no retractions or nasal flaring. Back: No spinal tenderness. No costovertebral tenderness. Full range of motion. Skin: Warm, dry with normal turgor. Normal color with no rashes, no lesions, and no evidence of cellulitis. MS/ Extremity: Pulses equal, no cyanosis. Neurovascular intact. Full, normal range of motion. Neuro: Awake and alert, GCS 15, oriented to person, place, time, and situation. Cranial nerves II-XII grossly intact. Motor strength 5/5 in all extremities. Sensory grossly intact. Cerebellar exam normal. Normal gait. Psych: Awake, alert, with orientation to person, place and time. Behavior, mood, and affect are within normal limits. 19:45 Abdomen/GI: Inspection: abdomen appears normal, Bowel sounds: normal, in all quadrants, Palpation: mild abdominal tenderness, in the right lower quadrant. Vital Signs: 17:45 BP 161 / 61; Pulse 69; Resp 18 S; Temp 98.3(O); Pulse Ox 98% on R/A; Weight 58.97 kg; iw Height 5 ft. 7 in. (170.18 cm); Pain 10/10; 19:12 BP 152 / 66; Pulse 60; Resp 18; Temp 98.4; Pulse Ox 97% on R/A; mg2 17:45 Body Mass Index 20.36 (58.97 kg, 170.18 cm) iw MDM: 17:43 Patient medically screened. snw 19:56 Data reviewed: vital signs, nurses notes. Data interpreted: Pulse oximetry: on room air snw is 97 %. Interpretation:. Counseling: I had a detailed discussion with the patient and/or guardian regarding: the historical points, exam findings, and any diagnostic results supporting the discharge/admit diagnosis, lab results, radiology results, the need for outpatient follow up, to return to the emergency department if symptoms worsen or persist or if there are any questions or concerns that arise at home. Response to treatment: the patient's symptoms have markedly improved after treatment. 01/28 17:38 Order name: Basic Metabolic Panel mg2 01/28 17:38 Order name: CBC with Diff; Complete Time: 18:51 mg2 01/28 17:38 Order name: Creatinine for Radiology; Complete Time: 19:21 mg2 01/28 17:38 Order name: Hepatic Function; Complete Time: 19:21 mg2 01/28 17:38 Order name: Lipase; Complete Time: 19:21 mg2 01/28 17:39 Order name: Basic Metabolic Panel; Complete Time: 19:21 EDMS 01/28 17:38 Order name: IV Saline Lock; Complete Time: 18:02 mg2 01/28 17:38 Order name: Labs collected and sent; Complete Time: 18:02 mg2 01/28 17:46 Order name: CT Abd/Pelvis - Without Cont; Complete Time: 18:51 snw 01/28 18:03 Order name: Urine Dipstick--Ancillary (enter results); Complete Time: 18:51 eb 01/28 18:04 Order name: Labs - recollect needed; Complete Time: 18:49 eb Administered Medications: 18:23 Drug: Simethicone 120 mg Route: PO; mg2 19:23 Follow up: Response: No adverse reaction; Marked relief of symptoms mg2 Disposition: 01/28/19 19:22 Discharged to Home. Impression: Unspecified abdominal pain. - Condition is Stable. - Discharge Instructions: Abdominal Pain, Adult, Intestinal Gas and Gas Pains, Pediatric. - Prescriptions for Gas- X Ultra-Strength - take 1 tablet by ORAL route 3-4 times daily; 1 box. - Medication Reconciliation Form, Thank You Letter, Antibiotic Education, Prescription Opioid Use form. - Follow up: Private Physician; When: 2 - 3 days; Reason: Recheck today's complaints, Continuance of care, Re-evaluation by your physician. Follow up: Emergency Department; When: As needed; Reason: Worsening of condition. Addendum: 01/30/2019 07:02 Co-signature as Attending Physician, Gregg Silvestre MD. r n Signatures: Dispatcher [employer] EDMS Liyah Mendenhall, RIGGER APPRENTICE-C RIGGER APPRENTICE-Csnw Kasandra Cole RN RN iw Nieto, Roman, MD MD rn Botello, Elizabeth eb Gardose, Michele, RN RN mg2 Corrections: (The following items were deleted from the chart) 01/28 19:50 19:22 01/28/2019 19:22 Discharged to Home. Impression: Unspecified abdominal pain. mg2 Condition is Stable. Forms are Medication Reconciliation Form, Thank You Letter, Antibiotic Education, Prescription Opioid Use. Follow up: Private Physician; When: 2 - 3 days; Reason: Recheck today's complaints, Continuance of care, Re-evaluation by your physician. Follow up: Emergency Department; When: As needed; Reason: Worsening of condition. snw
--- NOTE | 2019-01-28 19:23 | ER ---
Nurse's Notes [facility] Name: Syl Sheikh Age: 78 yrs Sex: Female : 1940 Arrival Date: 01/28/2019 Time: 17:38 Bed 25 Private MD: Diagnosis: Unspecified abdominal pain Presentation: 01/28 17:42 Presenting complaint: Patient states: had colonoscopy done yesterday by Dr. Ballard, iw found some polyps, about 2 hours ago started having severe upper abd pain, feels like pressure, denies n/v/d. Transition of care: patient was not received from another setting of care. Onset of symptoms was January 28, 2019. Risk Assessment: Do you want to hurt yourself or someone else? Patient reports no desire to harm self or others. Initial Sepsis Screen: Does the patient meet any 2 criteria? No. Patient's initial sepsis screen is negative. Does the patient have a suspected source of infection? No. Patient's initial sepsis screen is negative. Care prior to arrival: None. 17:42 Method Of Arrival: EMS: [facility] iw 17:42 Acuity: MP 3 iw Historical: - Allergies: 17:44 butorphanol tartrate; iw 17:44 Codeine; iw 17:44 Hydrocodone-Acetaminophen; iw 17:44 Lisinopril; iw 17:44 Stadol; iw 17:44 statin drugs; iw - Home Meds: 17:44 Alprazolam Oral [Active]; Coreg Oral [Active]; paroxetine Oral [Active]; iw - PMHx: 17:44 abdominal aortic aneurysm; CVA; Hypertension; TIA; iw - PSHx: 17:44 AAA repair 03/2018; iw - Immunization history:: Adult Immunizations up to date. - Social history:: Smoking status: Patient/guardian denies using tobacco. - Ebola Screening: : Patient negative for fever greater than or equal to 101.5 degrees Fahrenheit, and additional compatible Ebola Virus Disease symptoms Patient denies exposure to infectious person Patient denies travel to an Ebola-affected area in the 21 days before illness onset No symptoms or risks identified at this time. Screenin:25 Abuse screen: Denies threats or abuse. Denies injuries from another. Nutritional mg2 screening: No deficits noted. Tuberculosis screening: No symptoms or risk factors identified. Fall Risk IV access (20 points). Assessment: 18:24 General: Appears in no apparent distress. comfortable, Behavior is calm, cooperative. mg2 Pain: Complains of pain in abdomen Pain does not radiate. Pain currently is 0 out of 10 on a pain scale. Quality of pain is described as aching, Pain began gradually, 3 hours ago. Neuro: Level of Consciousness is awake, alert, obeys commands, Oriented to person, place, time, situation. Cardiovascular: Capillary refill < 3 seconds Patient's skin is warm and dry. Respiratory: Airway is patent Respiratory effort is even, unlabored, Respiratory pattern is regular, symmetrical. GI: Bowel sounds present X 4 quads. Abd is soft and non tender. : Urine is see urine dip result. EENT: No signs and/or symptoms were reported regarding the EENT system. Derm: Skin is intact, is healthy with good turgor, Skin is pink, warm \T\ dry. normal. Musculoskeletal: 18:26 Reassessment: patient sent to ct scan via stretcher. mg2 19:12 Reassessment: Patient states feeling better. mg2 Vital Signs: 17:45 BP 161 / 61; Pulse 69; Resp 18 S; Temp 98.3(O); Pulse Ox 98% on R/A; Weight 58.97 kg; iw Height 5 ft. 7 in. (170.18 cm); Pain 10/10; 19:12 BP 152 / 66; Pulse 60; Resp 18; Temp 98.4; Pulse Ox 97% on R/A; mg2 17:45 Body Mass Index 20.36 (58.97 kg, 170.18 cm) iw ED Course: 17:38 Patient arrived in ED. iw 17:38 Michael Muhammad, RN is Primary Nurse. mg2 17:43 Triage completed. iw 17:43 Liyah Mendenhall FNP-C is [facility]. snw 17:43 Gregg Silvestre MD is Attending Physician. snw 17:45 Arm band placed on. iw 18:25 No provider procedures requiring assistance completed. Inserted saline lock: 20 gauge mg2 in left antecubital area, using aseptic technique. Blood collected. 18:26 Patient has correct armband on for positive identification. Pulse ox on. NIBP on. Door mg2 closed. Warm blanket given. Assisted to bedside commode. 18:28 CT completed. Patient tolerated procedure well. Patient moved back from CT. bq 18:29 CT Abd/Pelvis - Without Cont In Process Unspecified. EDMS 19:49 IV discontinued, intact, bleeding controlled, No redness/swelling at site. Pressure mg2 dressing applied. Administered Medications: 18:23 Drug: Simethicone 120 mg Route: PO; mg2 19:23 Follow up: Response: No adverse reaction; Marked relief of symptoms mg2 Outcome: 19:22 Discharge ordered by MD. portillo 19:49 Discharged to home via wheelchair, with family. mg2 19:49 Condition: stable 19:49 Discharge instructions given to patient, family, Instructed on discharge instructions, follow up and referral plans. medication usage, Demonstrated understanding of instructions, follow-up care, medications, Prescriptions given X 1. 19:50 Patient left the ED. mg2 Signatures: Dispatcher [employer] EDMS Liyah Mendenhall, OFFICE NURSE-C OFFICE NURSE-Csnw Deanna George bq Kasandra Cole RN RN iw Gardose, Michele, RN RN mg2
[2019-01-28 20:14] VITALS: BP 152/66; TEMP 98.4; O2SAT 97
== END 2019-01-28 19:50 | disposition home or self-care (01) ==
LOC: ER 17:34
DX: R10.31 Right lower quadrant pain (principal); I10 Essential (primary) hypertension; Z88.5 Allergy status to narcotic agent; Z88.8 Allergy status to other drugs, medicaments and biological substances; Z86.73 Personal history of transient ischemic attack (TIA), and cerebral infarction without residual deficits; Z98.890 Other specified postprocedural states
CPT/HCPCS: 36415; 74176; 80048; 80076; 81003; 83690; 85025; 99285

== ENCOUNTER 2019-02-16 10:47 | Inpatient (IN) | payer OTHER ==
[2019-02-16 12:10] LABS: Absolute Lymphocytes (CBC) 0.9 K/uL (0.7-4.9); Absolute Monocytes 0.8 K/uL (0.1-1.3); Absolute Neutrophil 8.7 K/uL (1.8-8.0); Basophils % 0.6 % (0-1.3); Eosinophils % 0.6 % (0-4.4); Hematocrit 27.4 % (36.0-45.0); Lymphocytes % 8.5 % (15.3-44.8); MPV 7.7 fL (7.6-11.3); Monocytes % 7.3 % (3.3-12.3); RBC Red Blood Cell Count 3.57 M/uL (3.86-4.86)
[2019-02-16 12:13] LABS: Protime INR 1.18
--- NOTE | 2019-02-16 12:18 | RAD REPORT ---
EXAM DESCRIPTION: CT - Head Brain Wo Cont - 02/16/2019 12:10 pm CLINICAL HISTORY: SYNCOPE Headache, drowsiness COMPARISON: Head Brain Wo Cont dated 07/17/2018; Head Brain Wo Cont dated 07/10/2018 TECHNIQUE: All CT scans are performed using dose optimization technique as appropriate and may inclu de automated exposure control or mA/KV adjustment according to patient size. FINDINGS: No intracranial hemorrhage, hydrocephalus or extra-axial fluid collection.Advanced general ized brain atrophy is present with advanced periventricular and deep white matter chronic microvascul ar ischemic changes.No areas of brain edema or evidence of midline shift. The paranasal sinuses and mastoids are clear. The calvarium is intact. IMPRESSION: No acute intracranial abnormality.
[2019-02-16 12:25] LABS: ALT/SGPT 18 U/L (12-78); AST/SGOT 13 U/L (15-37); Albumin 2.9 g/dL (3.4-5.0); Alkaline Phosphatase 106 U/L (45-117); BUN Blood Urea Nitrogen 14 mg/dL (7-18); Bicarbonate 26 mmol/L (21-32); Bilirubin Direct 0.1 mg/dL (0-0.2); Bilirubin Total 0.3 mg/dL (0.2-1.0); Glucose Level 151 mg/dL (74-106); Magnesium 2.2 mg/dL (1.8-2.4); NT PRO-BNP 1070 pg/mL (<450); Potassium 3.8 mmol/L (3.5-5.1); Sodium Level 137 mmol/L (136-145); Troponin (Emerg Dept Use Only) < 0.02 ng/mL (0.0-0.045)
[2019-02-16 12:55] LABS: Urine Blood TRACE (NEG); Urine Glucose NEGATIVE (NEG); Urine Protein 1+ (NEG); Urine Specific Gravity 1.015 (1.005-1.030); Urine pH 6.5 (5.0-7.0)
--- NOTE | 2019-02-16 14:15 | RAD REPORT ---
EXAM DESCRIPTION: RAD -Hand Left 3 View - 02/16/2019 1:24 pm CLINICAL HISTORY: Left hand pain FINDINGS: No fracture or dislocation is seen. Soft tissue swelling within the distal left forearm The bones are osteoporotic. An 8 millimeter lucency is present within the base of the first metacarpa l . Most likely this is benign. If the patient has clinical symptoms to suggest osteomyelitis then MR I would be recommended..
--- NOTE | 2019-02-16 14:17 | RAD REPORT ---
EXAM DESCRIPTION: Essie Single View02/16/2019 1:23 pm CLINICAL HISTORY: Shortness of breath COMPARISON: 2016 FINDINGS: The lungs appear clear of acute infiltrate. The heart is mildly enlarged. Aorta is tortuous/ectatic without significant change. IMPRESSION: No acute abnormalities displayed
--- NOTE | 2019-02-16 14:29 | EKG ---
Test Date: 2019-02-16 Test Time: 12:20:38 [employer]: [employer]TIE MEASUREMENT RESULTS: Intervals: Rate: 63 VT: 216 QRSD: 74 QT: 406 QTc: 415 O'Brien: P: 56 VT: 216 QRS: 4 T: 66 INTERPRETIVE STATEMENTS: Sinus rhythm with 1st degree AV block Otherwise normal ECG Compared to ECG 01/15/2019 10:16:01 First degree AV block now present Myocardial infarct finding no longer present Electronically Signed On 02-16-19 14:28:43 CDT by Nadeem Swenson
--- OUTSIDE RECORDS SUMMARY | 2019-02-16 14:56 | XMS REPORT | Clinical Summary ---
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 02/15/2018 Social History Tobacco Use Types Packs/Day Years [...] Not on file 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 Shelf Model / Identifier Expiration Serial / Date Lot Zbigniew Iliac Aaa Leg 13x90 [id number] - [id number] CV Aneurysm Right: COOK:AORTIC 10/13/2020 [id number] / Implanted: Qty: 1 on 04/15/2018 by Arnaldo Avelar MD Groin INTERVENTION / [id number] Closure Sys Perclose Progl 6fr 55904-59 - [id number] Cardiovascular Left: WANG 11/18/2019 [id number] / Implanted: Qty: 1 on 04/15/2018 by Arnaldo Avelar MD Groin LAB: VAS DEV / [id number] Closure Sys Perclose Progl 6fr 11326-48 - [id number] Cardiovascular Left: WANG 01/18/2020 [id number] / Implanted: Qty: 1 on 04/15/2018 by Arnaldo Avelar MD Groin LAB: VAS DEV / [id number] Closure Sys Perclose Progl 6fr 05227-00 - [id number] Cardiovascular Right: WANG 11/18/2019 [id number] / Implanted: Qty: 1 on 04/15/2018 by Arnaldo Avelar MD Groin LAB: VAS DEV / [id number] Closure Sys Perclose Progl 6fr 32983-74 - [id number] Cardiovascular Right: WANG 11/18/2019 [id number] / Implanted: Qty: 1 on 04/15/2018 by Arnaldo Avelar MD Groin LAB: VAS DEV / [id number] Endovascular Graft N/A: [employer] [facility] 02/27/2020 [id number] / Implanted: Qty: 1 on 04/15/2018 by Arnaldo Avelar MD Groin / [id number] Iliac Leg Graft Right: [employer] [facility] 12/28/2020 [id number] / Implanted: Qty: 1 on 04/15/2018 by [...] 428 ms QTC Calculation(Bazett) 413 ms [address] [employer] 55 degrees R [place] -26 degrees T [employer] [place] 48 degrees Sinus bradycardia with 1st degree A-V block with Premature atrial complexes Voltage criteria for left ventricular hypertrophy Inferior infarct , age undetermined Anterolateral infarct , age undetermined Abnormal ECG No previous ECGs available ECG 12-LEAD Routine 04/14/2018 1:13 PM CDT Thoracic aortic Results for this aneurysm without procedure are in the rupture (HCC) results section. after 02/15/2018 Results RHYTHM STRIP - SCAN (01/05/2019 9:21 AM CDT)Only the most recent of2 resultswithin the time period is included. Narrative Performed At VASCULAR DIAGRAM -SCAN (04/21/2018 8:40 AM CDT) Narrative Performed At XR chest 1 view portable / bedside (04/19/2018 9:48 AM CDT)Only the most recent of5 resultswithin the time period is included. Specimen Narrative Performed At FINAL REPORT [facility] Chest one view INDICATION: EVAR COMPARISON: [...] MD Report Verified Date/Time:04/19/2018 10:16:05 Reading Location: [facility] Radiology Reading Room Procedure Note Interface, [...] Report Verified Date/Time: 04/19/2018 10:16:05 [facility] [place] [facility] Performing Organization Address [facility] Phone Number [facility] aPTT (04/19/2018 4:02 AM CDT)Only the most recent of5 resultswithin the time period is included. PTT 36.6 (H) 22.5 - 36.0 seconds [facility] Specimen Blood Performing Organization Address [facility] Phone Number [address] [address] C[place] Prothrombin time/INR (04/19/2018 4:02 AM CDT)Only the most recent of6 resultswithin the time period is included. Protime 15.9 (H) 11.7 - 14.7 seconds [facility] INR 1.3 <=5.9 [facility] Specimen Blood Narrative Performed At [facility] RECOMMENDED COUMADIN/WARFARIN INR THERAPY RANGES STANDARD DOSE: 2.0 - 3.0 Includes: PROPHYLAXIS for venous thrombosis, systemic embolization; TREATMENT for venous thrombosis and/or pulmonary embolus. HIGH RISK: Target INR is 2.5-3.5 for patients with mechanical heart valves. Performing Organization Address [facility]/[employer] Phone Number [address] [address] C[place] CBC (Hemogram only) (04/19/2018 4:02 AM CDT)Only the most recent of4 resultswithin the time period is included. WBC 9.5 3.5 - 10.5 K/L [facility] RBC 3.64 (L) 3.93 - 5.22 M/L [facility] Hemoglobin 10.6 (L) 11.2 - 15.7 GM/DL [facility] Hematocrit 33.8 (L) 34.1 - 44.9 % [facility] MCV 92.9 79.4 - 94.8 fL [facility] MCH 29.1 25.6 - 32.2 pg [facility] MCHC 31.4 (L) 32.2 - 35.5 GM/DL [facility] RDW 14.1 11.7 - 14.4 % [facility] Platelets 232 150 - 450 K/CU MM [facility] MPV 10.9 9.4 - 12.3 fL [facility] nRBC 0 0 - 0 /100 WBC [facility] Specimen Blood Performing Organization Address City/[facility] Hospitalcode Phone Number [address] [address] CENTER Phosphorus (04/19/2018 4:02 AM CDT)Only the most recent of5 resultswithin the time period is included. Phosphorus 4.0 2.3 - 4.7 mg/dL [facility] Specimen Blood Performing Organization Address City/[facility]/Zipcode Phone Number [address] [address] CENTER Magnesium (04/19/2018 4:02 AM CDT)Only the most recent of4 resultswithin the time period is included. Magnesium 2.2 1.6 - 2.6 mg/dL [facility] Specimen Blood Performing Organization Address City/[facility]/Zipcode Phone Number [facility] [address] [place] [address] [place] Basic Metabolic Panel (04/19/2018 4:02 AM CDT)Only the most recent of5 resultswithin the time period is included. Sodium 141 136 - 145 meq/L [facility] Potassium 3.6 3.5 - 5.1 meq/L [facility] Chloride 106 98 - 107 meq/L [facility] CO2 28 22 - 29 meq/L [facility] BUN 20 7 - 21 mg/dL [facility] Creatinine 0.87 0.57 - 1.25 mg/dL [facility] Glucose 122 (H) 70 - 105 mg/dL [facility] Calcium 9.0 8.4 - 10.2 mg/dL [facility] EGFR 63Comment: ESTIMATED GFR IS mL/min/1.73 sq m [facility] NOT ACCURATE CREATININE [facility] CLEARANCE IN PREDICTING GLOMERULAR FILTRATION RATE. ESTIMATED GFR IS NOT APPLICABLE FOR DIALYSIS PATIENTS. Specimen Blood Performing Organization Address City/State/Zipcode Phone Number [facility] [address] [place] [address] [place] TRANSFUSION SERVICE REPORT - SCAN (04/15/2018 5:54 PM CDT) Narrative Performed At XR abdomen / KUB 1 view (04/15/2018 11:46 AM CDT) Specimen Narrative Performed At FINAL REPORT [employer] CLINICAL HISTORY: Postop AAA TECHNIQUE: Supine abdomen COMPARISON: None IMPRESSION: The bowel gas pattern is nonspecific. Free air and air-fluid levels are not seen but cannot be definitively excluded on the supine view. There is vicarious excretion of contrast in the bilateral nephroureteral collecting systems. There is an aortobiiliac stent. Signed: Hardik Godwin MD Report Verified Date/Time:04/15/2018 12:39:57 Reading Location: [facility] Radiology Reading Room Procedure Note Interface, [...] Report Verified Date/Time: 04/15/2018 12:39:57 Reading Location: [facility] Radiology Reading Room Performing Organization Address City/[facility]/Zipcode Phone Number [facility] Calcium, Ionized (04/15/2018 11:06 AM CDT) Calcium, Ion 1.25 1.12 - 1.27 mmol/L [facility] pH, Blood 7.37 [facility] Specimen Blood Performing Organization Address City/[facility]/Zipcode Phone Number [address] [address] C[place] CBC with platelet count + automated diff (04/15/2018 11:05 AM CDT)Only the most recent of2 resultswithin the time period is included. WBC 12.0 (H) 3.5 - 10.5 K/L [facility] RBC 3.84 (L) 3.93 - 5.22 M/L [facility] Hemoglobin 11.4 11.2 - 15.7 GM/DL [facility] Hematocrit 35.7 34.1 - 44.9 % [facility] MCV 93.0 79.4 - 94.8 fL [facility] MCH 29.7 25.6 - 32.2 pg [facility] MCHC 31.9 (L) 32.2 - 35.5 GM/DL [facility] RDW 14.1 11.7 - 14.4 % [facility] Platelets 207 150 - 450 K/CU MM [facility] MPV 10.7 9.4 - 12.3 fL [facility] nRBC 0 0 - 0 /100 WBC [facility] % Neutros 77 % [facility] % Lymphs 15 % [facility] % Monos 6 % [facility] % Eos 1 % [facility] % Baso 1 % [facility] # Neutros 9.14 (H) 1.56 - 6.13 K/L [facility] # Lymphs 1.78 1.18 - 3.74 K/L [facility] # Monos 0.72 (H) 0.24 - 0.36 K/L [facility] # Eos 0.16 0.04 - 0.36 K/L [facility] # Baso 0.06 0.01 - 0.08 K/L [facility] Immature Granulocytes-Relative 1 0 - 1 % [facility] Specimen Blood Performing Organization Address City/State/Zipcode Phone Number [address] [address] [phone] [place] POC ACTIVATED CLOTTING TIME (04/15/2018 9:02 AM CDT) Activated Clotting Time 257Comment: TESTED AT sec [address] [address] Specimen Blood Performing Organization Address City/[facility] Phone Number [address] [address] [place] XR chest 2 views (04/14/2018 1:39 PM [...] MD Report Verified Date/Time:04/14/2018 14:12:09 Reading Location: [address] Radiology Reading Room Procedure Note Interface, [...] Report Verified Date/Time: 04/14/2018 14:12:09 Reading Location: [address] Radiology Reading Room Performing Organization Address City/State/Zipcode Phone Number [facility] Urinalysis w/Microscopic (04/14/2018 1:18 PM CDT) Color, UA Yellow [facility] Clarity, UA Clear [facility] Specific [place], UA 1.010 1.001 - 1.035 [facility] pH, UA 6.5 5.0 - 8.0 [facility] Protein, UA 20 mg/dL (A) Negative [facility] Glucose, UA Negative Negative [facility] Ketones, UA Negative Negative [facility] Bilirubin, UA Negative Negative [facility] Blood, UA Negative Negative [facility] Nitrite, UA Negative Negative [facility] Leukocytes, UA Negative Negative [facility] Urobilinogen, UA 0.2 0.2 - 1.0 mg/dL [facility] RBC, UA <1 /HPF [facility] WBC, UA <1 /HPF [facility] Mucus Rare [facility] Squam Epithel, UA <1 /HPF [facility] Hyaline Casts, UA 4 /LPF [facility] Specimen Source [facility] Specimen Urine Performing Organization Address City/[facility] Phone Number [address] [address] C[place] Type and screen, automated (04/14/2018 1:17 PM CDT) ABO/RH AUTOMATED (GAMA) A POSITIVE [facility] Ab Scrn NEGATIVE [facility] Specimen Blood Performing Organization Address City/[facility] Hospital[facility] Phone Number [address] [address] HIV-1 Antigen with HIV-1/2 Antibody (04/14/2018 1:17 PM CDT) HIV-1 Antigen with HIV 1&2 NON-REACTIVE Nonreactive [facility] Specimen Blood Performing Organization Address City/[facility] Phone Number [address] [address] C[place] Hepatitis B Panel (04/14/2018 1:17 PM CDT) Hep B Core Total Ab NON-REACTIVE Nonreactive [facility] Hep B S Ab 63.1 (H) <8.0 mIU/mL [facility] hepatitis B Surface Ag NON-REACTIVE Nonreactive [facility] Specimen Blood Performing Organization Address City/[facility] Phone Number [address] [address] C[place] Hepatitis C antibody (04/14/2018 1:17 PM CDT) Hepatitis C Ab NON-REACTIVE Nonreactive [facility] Specimen Blood Performing Organization Address [facility] Hospital[facility] Phone Number [address] [address] C[place] Reticulocyte count (04/14/2018 1:17 PM CDT) % Retic 1.0 0.5 - 1.7 % [facility] Specimen Blood Performing Organization Address [facility] Phone Number [address] [address] C[place] Lipase (04/14/2018 1:17 PM CDT) Lipase 10 8 - 78 U/L [facility] Specimen Blood Performing Organization Address [facility] Phone Number [address] [address] [place] Lactate dehydrogenase (LDH) (04/14/2018 1:17 PM CDT) LDH 238 (H) 125 - 220 U/L [facility] Specimen Blood Performing Organization Address [facility] Phone Number [address] [address] C[place] Amylase (04/14/2018 1:17 PM CDT) Amylase 40 25 - 125 U/L [facility] Specimen Blood Performing Organization Address [facility] Phone Number [address] [address] [place] Hepatic function panel (04/14/2018 1:17 PM CDT) Protein, Total 7.1 6.0 - 8.3 gm/dL [facility] Albumin 4.0 3.5 - 5.0 g/dL [facility] Total Bilirubin 0.4 0.2 - 1.2 mg/dL [facility] Bilirubin, Direct 0.2 0.1 - 0.5 mg/dL [facility] Alkaline Phosphatase 135 40 - 150 U/L [facility] AST 22 5 - 34 U/L [facility] ALT 22 6 - 55 U/L [facility] Specimen Blood Performing Organization Address City/State/Zipcode Phone Number [facility] [address] [place] [address] [phone] CENTER ECG 12 lead (04/14/2018 1:13 PM CDT) Specimen Narrative Performed At Ventricular Rate 56 BPM GE MUSE Atrial Rate 56 BPM P-R Interval 218 ms QRS Duration 70 ms Q-T Interval 428 ms QTC Calculation(Bazett) 413 ms [place] [employer] 55 degrees R [employer] -26 degrees [place] [employer] 48 degrees Sinus bradycardia with 1st degree [...] 428 ms QTC Calculation(Bazett) 413 ms [employer] 55 degrees [place] [employer] -26 degrees [place] [employer] 48 degrees Sinus bradycardia with 1st degree A-V block with Premature atrial complexes Voltage criteria for left ventricular hypertrophy Inferior infarct , age undetermined Anterolateral infarct , age undetermined Abnormal ECG No previous ECGs available Confirmed by MD JOHNSON JOSEPH P ([id number]) on 04/15/2018 5:58:45 AM Performing Organization Address City/State/Zipcode Phone Number MONIE MUSE after 02/15/2018 Insurance Payer Benefit Plan / Group Subscriber ID Type Phone Address MEDICARE MEDICARE A B xxxxxxxxxx Medicare MCR SUPPLEMENT/[employer] xxxxxxxx [facility] Advance Directives For more information, please contact:[address] [phone] Code Status Date Activated Date Inactivated Comments Full Code 04/15/2018 10:55 AM 04/19/2018 6:23 PM This code status was determined by: Patient Full Code 04/15/2018 6:03 AM 04/15/2018 10:55 AM This code status was determined by: Patient
--- OUTSIDE RECORDS SUMMARY | 2019-02-16 14:56 | XMS REPORT ---
:1940 [facility] [address] [place]gado [address] [place] [id number] Care Team Providers Name Role Phone DOMINIC [...] ID: VIEW, NON DEPT EVARShould this be [phone] Chest one view performed at the INDICATION: [...] skin fold is suspected. Signed: Dena Talavera Verified Date/Time: 04/19/2018 10:16:05 Reading Location: [facility] Radiology Reading Room PHORUS 2018-04-19 05:21:00 Test Item Value Reference Range Comments PHOSPHORUS (BEAKER) (test mevr=007) 4.0 mg/dL 2.3-4.7 [id number] 05:21:00 Test Item Value Reference Range Comments MAGNESIUM (BEAKER) (test xwyf=401) 2.2 mg/dL 1.6-2.6 BASIC METABOLIC [id number] 05:21:00 Test Item Value Reference Range Comments SODIUM (BEAKER) (test 141 meq/L 136-145 piym=521) POTASSIUM (BEAKER) (test 3.6 meq/L 3.5-5.1 luel=145) CHLORIDE (BEAKER) (test 106 meq/L 98-107 sghw=288) CO2 (BEAKER) (test 28 meq/L 22-29 ayjd=921) BLOOD UREA NITROGEN 20 mg/dL 7-21 (BEAKER) (test lpht=442) CREATININE (BEAKER) (test 0.87 mg/dL 0.57-1.25 gbvv=467) GLUCOSE RANDOM (BEAKER) 122 mg/dL 70-105 (test eeqr=666) CALCIUM (BEAKER) (test 9.0 mg/dL 8.4-10.2 xibg=373) EGFR (BEAKER) (test 63 mL/min/1.73 sq m ESTIMATED GFR IS NOT gxrc=1938) ACCURATE CREATININE CLEARANCE IN PREDICTING GLOMERULAR FILTRATION RATE. ESTIMATED GFR IS NOT APPLICABLE FOR DIALYSIS PATIENTS. [id number] 04:58:00 Test Item Value Reference Range Comments PARTIAL THROMBOPLASTIN TIME (BEAKER) (test 36.6 seconds 22.5-36.0 kcsj=171) PROTHROMBIN TIME/[id number] 04:57:00 Test Item Value Reference Range Comments PROTIME (BEAKER) (test evll=815) 15.9 seconds 11.7-14.7 INR (BEAKER) (test cath=103) 1.3 <=5.9 RECOMMENDED COUMADIN/WARFARIN INR THERAPY RANGESSTANDARD DOSE: 2.0 - 3.0 Includes: PROPHYLAXIS forvenous thrombosis, systemic embolization; TREATMENT for venous thrombosis and/or pulmonary embolus.HIGH RISK: Target INR is 2.5-3.5 for patients with mechanical heart valves.CBC (HEMOGRAM ONLY)2018-04-19 04:47:00 Test Item Value Reference Range Comments WHITE BLOOD CELL COUNT (BEAKER) (test rfjh=189) 9.5 K/ L 3.5-10.5 RED BLOOD CELL COUNT (BEAKER) (test gjle=045) 3.64 M/ L 3.93-5.22 HEMOGLOBIN (BEAKER) (test lwta=426) 10.6 GM/DL 11.2-15.7 HEMATOCRIT (BEAKER) (test gine=686) 33.8 % 34.1-44.9 MEAN CORPUSCULAR VOLUME (BEAKER) (test zkwe=214) 92.9 fL 79.4-94.8 MEAN CORPUSCULAR HEMOGLOBIN (BEAKER) (test 29.1 pg 25.6-32.2 jcca=193) MEAN CORPUSCULAR HEMOGLOBIN CONC (BEAKER) (test 31.4 GM/DL 32.2-35.5 ijwv=764) RED CELL DISTRIBUTION WIDTH (BEAKER) (test 14.1 % 11.7-14.4 cvpx=470) PLATELET COUNT (BEAKER) (test jjqn=456) 232 K/CU MM 150-450 MEAN PLATELET VOLUME (BEAKER) (test zcmz=571) 10.9 fL 9.4-12.3 NUCLEATED RED BLOOD CELLS (BEAKER) (test 0 /100 WBC 0-0 hznd=701) RAD, CHEST, 1 VIEW, NON [id number] 08:00:00Reason for exam:->S/P EVARShould this be performed [...] Location: [facility] Radiology Reading Room [id number] 05:25:00 Test Item Value Reference Range Comments PHOSPHORUS (BEAKER) (test sohh=015) 3.6 mg/dL 2.3-4.7 [id number] 05:25:00 Test Item Value Reference Range Comments MAGNESIUM (BEAKER) (test xvud=142) 2.2 mg/dL 1.6-2.6 BASIC METABOLIC [id number] 05:25:00 Test Item Value Reference Range Comments SODIUM (BEAKER) (test 139 meq/L 136-145 xlvj=113) POTASSIUM (BEAKER) (test 3.2 meq/L 3.5-5.1 ulcn=849) CHLORIDE (BEAKER) (test 103 meq/L 98-107 yaxp=550) CO2 (BEAKER) (test 25 meq/L 22-29 enlp=981) BLOOD UREA NITROGEN 17 mg/dL 7-21 (BEAKER) (test asqe=120) CREATININE (BEAKER) (test 0.86 mg/dL 0.57-1.25 fyiy=546) GLUCOSE RANDOM (BEAKER) 150 mg/dL 70-105 (test hhnp=067) CALCIUM (BEAKER) (test 9.6 mg/dL 8.4-10.2 vnam=306) EGFR (BEAKER) (test 64 mL/min/1.73 sq m ESTIMATED GFR IS NOT wnzz=1005) ACCURATE CREATININE CLEARANCE IN PREDICTING GLOMERULAR FILTRATION RATE. ESTIMATED GFR IS NOT APPLICABLE FOR DIALYSIS PATIENTS. [id number] 05:06:00 Test Item Value Reference Range Comments PARTIAL THROMBOPLASTIN TIME (BEAKER) (test 36.5 seconds 22.5-36.0 sssw=787) PROTHROMBIN TIME/[id number] 05:05:00 Test Item Value Reference Range Comments PROTIME (BEAKER) (test xuoq=052) 16.5 seconds 11.7-14.7 INR (BEAKER) (test nsyk=029) 1.3 <=5.9 RECOMMENDED COUMADIN/WARFARIN INR THERAPY RANGESSTANDARD DOSE: 2.0 - 3.0 Includes: PROPHYLAXIS forvenous thrombosis, systemic embolization; TREATMENT for venous thrombosis and/or pulmonary embolus.HIGH RISK: Target INR is 2.5-3.5 for patients with mechanical heart valves.CBC (HEMOGRAM ONLY)2018-04-18 04:52:00 Test Item Value Reference Range Comments WHITE BLOOD CELL COUNT (BEAKER) (test iqoz=564) 11.2 K/ L 3.5-10.5 RED BLOOD CELL COUNT (BEAKER) (test opzv=686) 3.90 M/ L 3.93-5.22 HEMOGLOBIN (BEAKER) (test zwlj=048) 11.3 GM/DL 11.2-15.7 HEMATOCRIT (BEAKER) (test ript=868) 35.7 % 34.1-44.9 MEAN CORPUSCULAR VOLUME (BEAKER) (test jtwk=597) 91.5 fL 79.4-94.8 MEAN CORPUSCULAR HEMOGLOBIN (BEAKER) (test 29.0 pg 25.6-32.2 qpaz=084) MEAN CORPUSCULAR HEMOGLOBIN CONC (BEAKER) (test 31.7 GM/DL 32.2-35.5 rcrk=175) RED CELL DISTRIBUTION WIDTH (BEAKER) (test 14.2 % 11.7-14.4 fanz=907) PLATELET COUNT (BEAKER) (test unch=655) 208 K/CU MM 150-450 MEAN PLATELET VOLUME (BEAKER) (test dkln=200) 10.6 fL 9.4-12.3 NUCLEATED RED BLOOD CELLS (BEAKER) (test 0 /100 WBC 0-0 eagk=940) RAD, CHEST, 1 VIEW, NON [id number] 10:31:00Reason for exam:->S/P EVARShould this be performed at the bedside?->YesFINAL REPORT Chest, one view. HISTORY: Status post aortic repair COMPARISON: 2017 IMPRESSION: No significant change. Unchanged tortuosity and ectasia of the thoracic aorta.Mild interstitial edema. No large pleural effusion or pneumothorax. Signed: Gera Hernandez MDReport Verified Date/Time: 04/17/2018 10: 31:41 Reading Location: [facility] C013Y CT Body Reading Room [id number] 06: 43:00 Test Item Value Reference Range Comments PHOSPHORUS (BEAKER) (test ilyo=205) 3.3 mg/dL 2.3-4.7 [id number] 06:43:00 Test Item Value Reference Range Comments MAGNESIUM (BEAKER) (test uirx=469) 2.0 mg/dL 1.6-2.6 [id number] 06:23:00 Test Item Value Reference Range Comments PARTIAL THROMBOPLASTIN TIME (BEAKER) (test 36.4 seconds 22.5-36.0 jurw=474) PROTHROMBIN TIME/[id number] 06:22:00 Test Item Value Reference Range Comments PROTIME (BEAKER) (test omtn=681) 17.3 seconds 11.7-14.7 INR (BEAKER) (test nifh=602) 1.4 <=5.9 RECOMMENDED COUMADIN/WARFARIN INR THERAPY RANGESSTANDARD DOSE: 2.0 - 3.0 Includes: PROPHYLAXIS forvenous thrombosis, systemic embolization; TREATMENT for venous thrombosis and/or pulmonary embolus.HIGH RISK: Target INR is 2.5-3.5 for patients with mechanical heart valves.CBC (HEMOGRAM ONLY)2018-04-17 06:13:00 Test Item Value Reference Range Comments WHITE BLOOD CELL COUNT (BEAKER) (test wduo=151) 13.2 K/ L 3.5-10.5 RED BLOOD CELL COUNT (BEAKER) (test wppv=526) 3.84 M/ L 3.93-5.22 HEMOGLOBIN (BEAKER) (test hlnv=300) 11.5 GM/DL 11.2-15.7 HEMATOCRIT (BEAKER) (test aeoo=484) 34.9 % 34.1-44.9 MEAN CORPUSCULAR VOLUME (BEAKER) (test laoo=869) 90.9 fL 79.4-94.8 MEAN CORPUSCULAR HEMOGLOBIN (BEAKER) (test 29.9 pg 25.6-32.2 uiaq=071) MEAN CORPUSCULAR HEMOGLOBIN CONC (BEAKER) (test 33.0 GM/DL 32.2-35.5 dumj=327) RED CELL DISTRIBUTION WIDTH (BEAKER) (test 14.0 % 11.7-14.4 ruuc=735) PLATELET COUNT (BEAKER) (test ytcn=883) 201 K/CU MM 150-450 MEAN PLATELET VOLUME (BEAKER) (test iprt=685) 10.6 fL 9.4-12.3 NUCLEATED RED BLOOD CELLS (BEAKER) (test 0 /100 WBC 0-0 lbga=119) RAD, CHEST, 1 VIEW, NON [id number] 09:02:00Reason for exam:->S/P EVARShould this be performed [...] MDReport Verified Date/Time: 04/16/2018 09:02:11 Reading Location: [facility] B1 C013Y CT Body Reading Room [id number] 06:11:00 Test Item Value Reference Range Comments PHOSPHORUS (BEAKER) (test kocx=413) 1.9 mg/dL 2.3-4.7 [id number] 06:11:00 Test Item Value Reference Range Comments MAGNESIUM (BEAKER) (test aoyh=291) 2.0 mg/dL 1.6-2.6 BASIC METABOLIC [id number] 06:11:00 Test Item Value Reference Range Comments SODIUM (BEAKER) (test 137 meq/L 136-145 lzld=500) POTASSIUM (BEAKER) (test 3.2 meq/L 3.5-5.1 ibbr=256) CHLORIDE (BEAKER) (test 104 meq/L 98-107 cqox=250) CO2 (BEAKER) (test 24 meq/L 22-29 oxvx=677) BLOOD UREA NITROGEN 7 mg/dL 7-21 (BEAKER) (test ppjp=964) CREATININE (BEAKER) (test 0.86 mg/dL 0.57-1.25 xluw=706) GLUCOSE RANDOM (BEAKER) 179 mg/dL 70-105 (test bxpa=072) CALCIUM (BEAKER) (test 9.0 mg/dL 8.4-10.2 gbpl=842) EGFR (BEAKER) (test 64 mL/min/1.73 sq m ESTIMATED GFR IS NOT ktci=9148) ACCURATE CREATININE CLEARANCE IN PREDICTING GLOMERULAR FILTRATION RATE. ESTIMATED GFR IS NOT APPLICABLE FOR DIALYSIS PATIENTS. [id number] 05:46:00 Test Item Value Reference Range Comments PARTIAL THROMBOPLASTIN TIME (BEAKER) (test 32.0 seconds 22.5-36.0 gpgx=350) PROTHROMBIN TIME/[id number] 05:45:00 Test Item Value Reference Range Comments PROTIME (BEAKER) (test gqva=306) 15.0 seconds 11.7-14.7 INR (BEAKER) (test hcar=723) 1.2 <=5.9 RECOMMENDED COUMADIN/WARFARIN INR THERAPY RANGESSTANDARD DOSE: 2.0 - 3.0 Includes: PROPHYLAXIS forvenous thrombosis, systemic embolization; TREATMENT for venous thrombosis and/or pulmonary embolus.HIGH RISK: Target INR is 2.5-3.5 for patients with mechanical heart valves.CBC (HEMOGRAM ONLY)2018-04-16 05:31:00 Test Item Value Reference Range Comments WHITE BLOOD CELL COUNT (BEAKER) (test meef=630) 12.0 K/ L 3.5-10.5 RED BLOOD CELL COUNT (BEAKER) (test jhrs=992) 4.19 M/ L 3.93-5.22 HEMOGLOBIN (BEAKER) (test tqjk=936) 12.4 GM/DL 11.2-15.7 HEMATOCRIT (BEAKER) (test tpbq=771) 38.6 % 34.1-44.9 MEAN CORPUSCULAR VOLUME (BEAKER) (test nbca=587) 92.1 fL 79.4-94.8 MEAN CORPUSCULAR HEMOGLOBIN (BEAKER) (test 29.6 pg 25.6-32.2 rxcc=081) MEAN CORPUSCULAR HEMOGLOBIN CONC (BEAKER) (test 32.1 GM/DL 32.2-35.5 vtag=267) RED CELL DISTRIBUTION WIDTH (BEAKER) (test 14.0 % 11.7-14.4 wvvv=278) PLATELET COUNT (BEAKER) (test pprt=492) 223 K/CU MM 150-450 MEAN PLATELET VOLUME (BEAKER) (test pjfi=444) 10.3 fL 9.4-12.3 NUCLEATED RED BLOOD CELLS (BEAKER) (test 0 /100 WBC 0-0 fyxa=112) [id number] 13:56:00 Test Item Value Reference Range Comments ACTIVATED CLOTTING TIME 257 sec TESTED AT [facility] [address] (BEAKER) (test npmo=872) [place] [address] RAD, ABDOMEN/KUB, 1 VIEW [id number] 12:39:00Reason for exam:->Postop AAAFINAL REPORT CLINICAL HISTORY: [...] Room RAD, CHEST , 1 VIEW, NON [id number] 12:38:00For chest painReason for exam:->post opShould this be performed at the bedside?->YesFINAL REPORT CLINICAL HISTORY: post op TECHNIQUE: 1 view of the chest. COMPARISON: 04/10/2018 IMPRESSION: There are no focal infiltrates or effusions. Cardiomegaly is again seen with tortuosity of the thoracic aorta. Signed: Hardik Godwin MDReport Verified Date/Time: 04/15/201812:38:40 Reading Location: [facility] Radiology Reading Room [id number] 11:51:00 Test Item Value Reference Range Comments PHOSPHORUS (BEAKER) (test aedi=527) 3.2 mg/dL 2.3-4.7 BASIC METABOLIC [id number] 11:51:00 Test Item Value Reference Range Comments SODIUM (BEAKER) (test 140 meq/L 136-145 dsth=823) POTASSIUM (BEAKER) (test 3.8 meq/L 3.5-5.1 lenp=654) CHLORIDE (BEAKER) (test 109 meq/L 98-107 khbp=977) CO2 (BEAKER) (test 24 meq/L 22-29 jnib=376) BLOOD UREA NITROGEN 12 mg/dL 7-21 (BEAKER) (test qloj=448) CREATININE (BEAKER) (test 0.77 mg/dL 0.57-1.25 hczs=815) GLUCOSE RANDOM (BEAKER) 176 mg/dL 70-105 (test fvfa=617) CALCIUM (BEAKER) (test 9.7 mg/dL 8.4-10.2 mtfz=548) EGFR (BEAKER) (test 73 mL/min/1.73 sq m ESTIMATED GFR IS NOT sanm=6193) ACCURATE CREATININE CLEARANCE IN PREDICTING GLOMERULAR FILTRATION RATE. ESTIMATED GFR IS NOT APPLICABLE FOR DIALYSIS PATIENTS. CBC W/PLT COUNT & AUTO [id number] 11:23:00 Test Item Value Reference Range Comments WHITE BLOOD CELL COUNT (BEAKER) (test wqht=546) 12.0 K/ L 3.5-10.5 RED BLOOD CELL COUNT (BEAKER) (test awky=783) 3.84 M/ L 3.93-5.22 HEMOGLOBIN (BEAKER) (test xeqn=927) 11.4 GM/DL 11.2-15.7 HEMATOCRIT (BEAKER) (test hafb=890) 35.7 % 34.1-44.9 MEAN CORPUSCULAR VOLUME (BEAKER) (test vcyr=200) 93.0 fL 79.4-94.8 MEAN CORPUSCULAR HEMOGLOBIN (BEAKER) (test 29.7 pg 25.6-32.2 llao=664) MEAN CORPUSCULAR HEMOGLOBIN CONC (BEAKER) (test 31.9 GM/DL 32.2-35.5 ogkz=020) RED CELL DISTRIBUTION WIDTH (BEAKER) (test 14.1 % 11.7-14.4 xcwf=920) PLATELET COUNT (BEAKER) (test vbhw=216) 207 K/CU MM 150-450 MEAN PLATELET VOLUME (BEAKER) (test ijoj=925) 10.7 fL 9.4-12.3 NUCLEATED RED BLOOD CELLS (BEAKER) (test 0 /100 WBC 0-0 ykma=997) NEUTROPHILS RELATIVE PERCENT (BEAKER) (test 77 % qect=072) LYMPHOCYTES RELATIVE PERCENT (BEAKER) (test 15 % zasu=611) MONOCYTES RELATIVE PERCENT (BEAKER) (test 6 % oprv=148) EOSINOPHILS RELATIVE PERCENT (BEAKER) (test 1 % mibf=767) BASOPHILS RELATIVE PERCENT (BEAKER) (test 1 % bggs=463) NEUTROPHILS ABSOLUTE COUNT (BEAKER) (test 9.14 K/ L 1.56-6.13 evci=960) LYMPHOCYTES ABSOLUTE COUNT (BEAKER) (test 1.78 K/ L 1.18-3.74 hfcu=361) MONOCYTES ABSOLUTE COUNT (BEAKER) (test 0.72 K/ L 0.24-0.36 yxfe=383) EOSINOPHILS ABSOLUTE COUNT (BEAKER) (test 0.16 K/ L 0.04-0.36 hbzn=752) BASOPHILS ABSOLUTE COUNT (BEAKER) (test 0.06 K/ L 0.01-0.08 cthk=652) IMMATURE GRANULOCYTES-RELATIVE PERCENT (BEAKER) 1 % 0-1 (test jehq=6385) PROTHROMBIN [id number] 11:22:00 Test Item Value Reference Range Comments PROTIME (BEAKER) (test ajsl=027) 15.7 seconds 11.7-14.7 INR (BEAKER) (test npdo=424) 1.3 <=5.9 RECOMMENDED COUMADIN/WARFARIN INR THERAPY RANGESSTANDARD DOSE: 2.0 - 3.0 Includes: PROPHYLAXIS forvenous thrombosis, systemic embolization; TREATMENT for venous thrombosis and/or pulmonary embolus.HIGH RISK: Target INR is 2.5-3.5 for patients with mechanical heart valves.CALCIUM, [id number] 11:06:00 Test Item Value Reference Range Comments CALCIUM IONIZED (BEAKER) (test idiz=938) 1.25 mmol/L 1.12-1.27 PH, BLOOD (BEAKER) (test rkmm=3788) 7.37 HEPATITIS C [id number] 15:18:00 Test Item Value Reference Range Comments HEPATITIS C ANTIBODY (BEAKER) (test ssdg=371) Nonreactive Nonreactive HEPATITIS B [id number] 15:18:00 Test Item Value Reference Range Comments HEPATITIS B CORE TOTAL ANTIBODY (BEAKER) (test Nonreactive Nonreactive okal=616) HEPATITIS B SURFACE ANTIBODY (BEAKER) (test 63.1 mIU/mL <8.0 mupx=585) HEPATITIS B SURFACE ANTIGEN (2) (BEAKER) (test Nonreactive Nonreactive bvzj=3194) HIV-1 ANTIGEN WITH HIV-1/2 [id number] 15:18:00 Test Item Value Reference Range Comments HIV-1 ANTIGEN WITH HIV 1\T\2 ANTIBODY (2) Nonreactive Nonreactive (BEAKER) (test naci=1137) [id number] 15:08:00 Test Item Value Reference Range Comments LIPASE (BEAKER) (test gsty=699) 10 U/L 8-78 [id number] 15:08:00 Test Item Value Reference Range Comments AMYLASE (BEAKER) (test doik=458) 40 U/L 25-125 BASIC METABOLIC [id number] 15:08:00 Test Item Value Reference Range Comments SODIUM (BEAKER) (test 141 meq/L 136-145 rbcf=267) POTASSIUM (BEAKER) (test 3.6 meq/L 3.5-5.1 bvxr=461) CHLORIDE (BEAKER) (test 104 meq/L 98-107 lcbu=506) CO2 (BEAKER) (test 27 meq/L 22-29 guon=961) BLOOD UREA NITROGEN 12 mg/dL 7-21 (BEAKER) (test dfjp=923) CREATININE (BEAKER) (test 0.86 mg/dL 0.57-1.25 zsap=487) GLUCOSE RANDOM (BEAKER) 112 mg/dL 70-105 (test zsfb=199) CALCIUM (BEAKER) (test 9.8 mg/dL 8.4-10.2 kqqr=937) EGFR (BEAKER) (test 64 mL/min/1.73 sq m ESTIMATED GFR IS NOT toxr=8307) ACCURATE CREATININE CLEARANCE IN PREDICTING GLOMERULAR FILTRATION RATE. ESTIMATED GFR IS NOT APPLICABLE FOR DIALYSIS PATIENTS. HEPATIC FUNCTION [id number] 15:08:00 Test Item Value Reference Range Comments TOTAL PROTEIN (BEAKER) (test juwo=707) 7.1 gm/dL 6.0-8.3 ALBUMIN (BEAKER) (test ldbk=0705) 4.0 g/dL 3.5-5.0 BILIRUBIN TOTAL (BEAKER) (test iboq=241) 0.4 mg/dL 0.2-1.2 BILIRUBIN DIRECT (BEAKER) (test euuf=395) 0.2 mg/dL 0.1-0.5 ALKALINE PHOSPHATASE (BEAKER) (test aivv=233) 135 U/L 40-150 AST (SGOT) (BEAKER) (test mrdi=495) 22 U/L 5-34 ALT (SGPT) (BEAKER) (test eljp=377) 22 U/L 6-55 LACTATE DEHYDROGENASE (LDH)2018-04-14 15:08:00 Test Item Value Reference Range Comments LACTATE DEHYDROGENASE (BEAKER) (test mlcu=940) 238 U/L 125-220 [id number] 14:47:00 Test Item Value Reference Range Comments PARTIAL THROMBOPLASTIN TIME (BEAKER) (test 31.9 seconds 22.5-36.0 oqdy=235) PROTHROMBIN [id number] 14:46:00 Test Item Value Reference Range Comments PROTIME (BEAKER) (test nneh=419) 14.1 seconds 11.7-14.7 INR (BEAKER) (test mpyy=955) 1.1 <=5.9 RECOMMENDED COUMADIN/WARFARIN INR THERAPY RANGESSTANDARD DOSE: 2.0 - 3.0 Includes: PROPHYLAXIS forvenous thrombosis, systemic embolization; TREATMENT for venous thrombosis and/or pulmonary embolus.HIGH RISK: Target INR is 2.5-3.5 for patients with mechanical heart valves.RETICULOCYTE [id number] 14:36:00 Test Item Value Reference Range Comments RETICULOCYTE COUNT PCT (BEAKER) (test hpda=884) 1.0 % 0.5-1.7 CBC W/PLT COUNT & AUTO [id number] 14:36:00 Test Item Value Reference Range Comments WHITE BLOOD CELL COUNT (BEAKER) (test azxj=795) 9.3 K/ L 3.5-10.5 RED BLOOD CELL COUNT (BEAKER) (test ytij=770) 4.05 M/ L 3.93-5.22 HEMOGLOBIN (BEAKER) (test koog=998) 12.2 GM/DL 11.2-15.7 HEMATOCRIT (BEAKER) (test roca=488) 37.2 % 34.1-44.9 MEAN CORPUSCULAR VOLUME (BEAKER) (test nmid=997) 91.9 fL 79.4-94.8 MEAN CORPUSCULAR HEMOGLOBIN (BEAKER) (test 30.1 pg 25.6-32.2 ifyz=051) MEAN CORPUSCULAR HEMOGLOBIN CONC (BEAKER) (test 32.8 GM/DL 32.2-35.5 vljf=723) RED CELL DISTRIBUTION WIDTH (BEAKER) (test 14.2 % 11.7-14.4 vswp=368) PLATELET COUNT (BEAKER) (test aktt=651) 259 K/CU MM 150-450 MEAN PLATELET VOLUME (BEAKER) (test gezo=279) 11.1 fL 9.4-12.3 NUCLEATED RED BLOOD CELLS (BEAKER) (test 0 /100 WBC 0-0 pgxu=732) NEUTROPHILS RELATIVE PERCENT (BEAKER) (test 70 % lbls=645) LYMPHOCYTES RELATIVE PERCENT (BEAKER) (test 19 % tkrf=351) MONOCYTES RELATIVE PERCENT (BEAKER) (test 8 % gssy=023) EOSINOPHILS RELATIVE PERCENT (BEAKER) (test 2 % glvc=611) BASOPHILS RELATIVE PERCENT (BEAKER) (test 1 % rqae=876) NEUTROPHILS ABSOLUTE COUNT (BEAKER) (test 6.49 K/ L 1.56-6.13 ksdh=940) LYMPHOCYTES ABSOLUTE COUNT (BEAKER) (test 1.74 K/ L 1.18-3.74 qmkv=598) MONOCYTES ABSOLUTE COUNT (BEAKER) (test 0.78 K/ L 0.24-0.36 ngzw=262) EOSINOPHILS ABSOLUTE COUNT (BEAKER) (test 0.14 K/ L 0.04-0.36 hmms=606) BASOPHILS ABSOLUTE COUNT (BEAKER) (test 0.07 K/ L 0.01-0.08 euyj=727) IMMATURE GRANULOCYTES-RELATIVE PERCENT (BEAKER) 0 % 0-1 (test sgcr=7143) URINALYSIS W/ [id number] 14:25:00 Test Item Value Reference Range Comments COLOR (BEAKER) (test dqhz=704) Yellow CLARITY (BEAKER) (test tmxx=282) Clear SPECIFIC GRAVITY UA (BEAKER) (test ynbc=163) 1.010 1.001-1.035 PH UA (BEAKER) (test uggq=686) 6.5 5.0-8.0 PROTEIN UA (BEAKER) (test zeyn=082) 20 mg/dL Negative GLUCOSE UA (BEAKER) (test jqdt=263) Negative Negative KETONES UA (BEAKER) (test jjrj=640) Negative Negative BILIRUBIN UA (BEAKER) (test hmui=551) Negative Negative BLOOD UA (BEAKER) (test gbmw=119) Negative Negative NITRITE UA (BEAKER) (test ptzp=328) Negative Negative LEUKOCYTE ESTERASE UA (BEAKER) (test atrx=731) Negative Negative UROBILINOGEN UA (BEAKER) (test biqe=982) 0.2 mg/dL 0.2-1.0 RBC UA (BEAKER) (test xitx=565) < /HPF WBC UA (BEAKER) (test lsba=942) < /HPF MUCUS (BEAKER) (test joyw=9461) Rare SQUAMOUS EPITHELIAL (BEAKER) (test yluu=804) < /HPF HYALINE CASTS (BEAKER) (test ugca=770) 4 /LPF SOURCE(BEAKER) (test jvun=9321) RAD, CHEST, 2 [id number] 14:12:00Reason for exam:->surgeryFINAL REPORT Chest, two views HISTORY: Surgery COMPARISON: None. DISCUSSION: Lungs are clear without focal consolidation. Cardiomediastinal silhouette is unremarkable. Tortuosityand ectasia of the thoracic aorta. No acute osseous abnormality. No pleural effusion or pneumothorax. Visualized portions of the upper abdomen are unremarkable. IMPRESSION: No acute cardiopulmonary abnormality. Signed: Gera Hernandez MDReport Verified Date/Time: 04/14/2018 14:12:09 Reading Location: [address] Radiology Reading Room 02:12 PM
--- NOTE | 2019-02-16 15:19 | EDPHYS ---
Physician Documentation [facility] Name: Syl Sheikh Age: 78 yrs Sex: Female : 1940 Arrival Date: 02/16/2019 Time: 10:49 Bed 15 Private MD: ED Physician Rolando Casillas HPI: 02/16 11:32 This 78 yrs old Female presents to ER via Ambulatory with complaints of Thumb jmm pain, Arm Pain, Weakness. 11:32 The patient has experienced near-syncope. Onset: The symptoms/episode began/occurred jmm acutely, this morning, at 10:30. Associated signs and symptoms: Pertinent positives: thumb pain. This is a 78 year old female with a history of htn, cva that presents to the ED with complaints of left thumb pain after an insect bite last night. Patient states that this morning she developed a near syncopal episode. Son states he had to catch her from falling. Patient states having a similar episode 4 months ago when she passed out at a [employer]. . Historical: - Allergies: 11:10 butorphanol tartrate; iw 11:10 Codeine; iw 11:10 Hydrocodone-Acetaminophen; iw 11:10 Lisinopril; iw 11:10 Stadol; iw 11:10 statin drugs; iw - PMHx: 11:10 abdominal aortic aneurysm; CVA; Hypertension; TIA; iw - PSHx: 11:10 AAA repair 03/2018; iw - Immunization history:: Adult Immunizations up to date. - Social history:: Smoking status: Patient/guardian denies using tobacco. - Ebola Screening: : Patient negative for fever greater than or equal to 101.5 degrees Fahrenheit, and additional compatible Ebola Virus Disease symptoms Patient denies exposure to infectious person Patient denies travel to an Ebola-affected area in the 21 days before illness onset No symptoms or risks identified at this time. ROS: 11:32 Constitutional: Negative for fever, chills, and weight loss, Cardiovascular: Negative jmm for chest pain, palpitations, and edema, Respiratory: Negative for shortness of breath, cough, wheezing, and pleuritic chest pain. 11:32 MS/extremity: Positive for pain. 11:32 Neuro: Positive for weakness. 11:32 All other systems are negative. Exam: 11:32 Constitutional: This is a well developed, well nourished patient who is awake, alert, jmm and in no acute distress. Head/Face: atraumatic. Eyes: EOMI, no conjunctival erythema appreciated ENT: Moist Mucus Membranes Neck: Trachea midline, Supple Chest/axilla: Normal chest wall appearance and motion. Cardiovascular: Regular rate and rhythm. No edema appreciated Respiratory: Normal respirations, no respiratory distress appreciated Abdomen/GI: Non distended, soft Back: Normal ROM 11:32 Skin: mild erythema noted to the base of the left thumb, painful ROM appreciated. < 2 sec dist cap refill, NVI. 11:32 Neuro: Orientation: is normal, Mentation: is normal, Memory: is normal. 11:32 Psych: Behavior/mood is pleasant, cooperative. Vital Signs: 11:10 BP 147 / 71; Pulse 77; Resp 16 S; Temp 98.2(TE); Pulse Ox 98% on R/A; Weight 58.97 kg; iw Height 5 ft. 7 in. (170.18 cm); Pain 10/10; 12:30 BP 170 / 76; Pulse 67; Resp 16 S; Pulse Ox 100% on R/A; aa5 14:00 BP 155 / 103; Pulse 70; Resp 16 S; Pulse Ox 99% on R/A; aa5 15:30 BP 165 / 76; Pulse 68; Resp 18 S; Pulse Ox 98% on R/A; aa5 16:30 BP 140 / 75; Pulse 78; Resp 18 S; Temp 98.5(O); Pulse Ox 99% on R/A; aa5 17:30 BP 154 / 72; Pulse 80; Resp 16 S; Pulse Ox 98% on R/A; aa5 11:10 Body Mass Index 20.36 (58.97 kg, 170.18 cm) iw MDM: 11:32 Patient medically screened. [facility] 15:16 Data reviewed: vital signs, nurses notes, lab test result(s), EKG, radiologic studies. [facility] Counseling: I had a detailed discussion with the patient and/or guardian regarding: the historical points, exam findings, and any diagnostic results supporting the discharge/admit diagnosis, lab results, the need for further work-up and treatment in the hospital. ED course: I discussed the patient with Dr. Soliman whom accepted admission and recommended observation. 02/16 11:38 Order name: Basic Metabolic Panel [facility] 02/16 11:38 Order name: CBC with Diff [facility] 02/16 11:38 Order name: LFT's [facility] 02/16 11:38 Order name: Magnesium [facility] 02/16 11:38 Order name: NT PRO-BNP [facility] 02/16 11:38 Order name: PT-INR [facility] 02/16 11:38 Order name: Troponin (emerg Dept Use Only) [facility] 02/16 12:19 Order name: CBC with Automated Diff EDMS 02/16 12:19 Order name: Protime (+INR) [facility] 02/16 12:40 Order name: Urine Dipstick--Ancillary (enter results); Complete Time: 13:01 ms 02/16 15:03 Order name: Type And Screen; Complete Time: 17:08 [facility] 02/16 15:03 Order name: Uric Acid; Complete Time: 17:08 [facility] 02/16 15:27 Order name: Basic Metabolic Panel [facility] 02/16 15:27 Order name: Basic Metabolic Panel [facility] 02/16 11:38 Order name: XRAY Chest (1 view); Complete Time: 14:42 [facility] 02/16 11:38 Order name: EKG; Complete Time: 11:44 [facility] 02/16 11:38 Order name: Cardiac monitoring; Complete Time: 11:46 [facility] 02/16 11:38 Order name: EKG - Nurse/Tech; Complete Time: 12:55 [facility] 02/16 11:38 Order name: IV Saline Lock; Complete Time: 11:59 [facility] 02/16 11:38 Order name: Labs collected and sent; Complete Time: 11:59 [facility] 02/16 11:38 Order name: O2 Per Protocol; Complete Time: 11:46 [facility] 02/16 11:38 Order name: O2 Sat Monitoring; Complete Time: 11:46 [facility] 02/16 11:39 Order name: CT Head Brain wo Cont [facility] 02/16 11:39 Order name: Hand Left 3 View XRAY; Complete Time: 14:18 [facility] 02/16 12:46 Order name: CT; Complete Time: 12:47 EDMN 02/16 15:27 Order name: Heart Healthy EDMS 02/16 15:27 Order name: CBC with Automated Diff EDMS 02/16 15:27 Order name: CBC with Automated Diff EDMS Administered Medications: 16:05 Drug: Rocephin - (cefTRIAXone) 1 grams {Note: administered slow IVP per pharmacy at aa5 this time.} Route: IVPB; Infused Over: 30 mins; Site: right antecubital; 16:25 Follow up: Response: No adverse reaction aa5 Disposition: 02/17 06:58 Co-signature as Attending Physician, Rolando Casillas MD I agree with the assessment and kdr plan of care. Disposition: 02/16/19 15:18 Hospitalization ordered by Wally Soliman for Observation. Preliminary diagnosis are Urinary tract infection, site not specified, Weakness, Syncope and collapse, Cellulitis. - Bed requested for Telemetry/MedSurg (observation). - Status is Observation. aa5 - Condition is Stable. - Problem is new. - Symptoms are unchanged. UTI on Admission? Yes Signatures: Dispatcher [employer] EDMS Rolando Casillas MD MD [facility] Samir Ward PA PA jmm Williams, Irene, Allison Hernandez RN, ms, Audri, RN RN aa5 Corrections: (The following items were deleted from the chart) 02/16 17:46 15:18 Hospitalization Ordered by Wally Soliman MD for Observation. Preliminary ms diagnosis is Urinary tract infection, site not specified; Weakness; Syncope and collapse; Cellulitis. Bed requested for Telemetry/MedSurg (observation). Status is Observation. Condition is Stable. Problem is new. Symptoms are unchanged. UTI on Admission? Yes. [facility] 18:05 17:46 02/16/2019 15:18 Hospitalization Ordered by Wally Soliman MD for Observation. aa5 Preliminary diagnosis is Urinary tract infection, site not specified; Weakness; Syncope and collapse; Cellulitis. Bed requested for Telemetry/MedSurg (observation). Status is Observation. Condition is Stable. Problem is new. Symptoms are unchanged. UTI on Admission? Yes. ms 18:40 15:16 ED course: I discussed the patient with Dr. Soliman whom accepted admission. . jmmjmm
--- NOTE | 2019-02-16 15:19 | ER ---
Nurse's Notes [facility] Name: Syl Sheikh Age: 78 yrs Sex: Female : 1940 Arrival Date: 02/16/2019 Time: 10:49 Bed 15 Private MD: Diagnosis: Urinary tract infection, site not specified;Weakness;Syncope and collapse;Cellulitis Presentation: 02/16 11:08 Presenting complaint: Patient states: last night was sitting on patio, got bit by an iw insect, now has pain and redness to thumb joint, and was also more weak than usual this morning. 11:08 Method Of Arrival: Ambulatory iw 11:09 Transition of care: patient was not received from another setting of care. Onset of iw symptoms was February 15, 2019. Risk Assessment: Do you want to hurt yourself or someone else? Patient reports no desire to harm self or others. Initial Sepsis Screen: Does the patient meet any 2 criteria? No. Patient's initial sepsis screen is negative. Does the patient have a suspected source of infection? No. Patient's initial sepsis screen is negative. Care prior to arrival: None. 11:09 Acuity: MP 3 iw Historical: - Allergies: 11:10 butorphanol tartrate; iw 11:10 Codeine; iw 11:10 Hydrocodone-Acetaminophen; iw 11:10 Lisinopril; iw 11:10 Stadol; iw 11:10 statin drugs; iw - PMHx: 11:10 abdominal aortic aneurysm; CVA; Hypertension; TIA; iw - PSHx: 11:10 AAA repair 03/2018; iw - Immunization history:: Adult Immunizations up to date. - Social history:: Smoking status: Patient/guardian denies using tobacco. - Ebola Screening: : Patient negative for fever greater than or equal to 101.5 degrees Fahrenheit, and additional compatible Ebola Virus Disease symptoms Patient denies exposure to infectious person Patient denies travel to an Ebola-affected area in the 21 days before illness onset No symptoms or risks identified at this time. Screenin:00 Abuse screen: Denies threats or abuse. Nutritional screening: No deficits noted. aa5 Tuberculosis screening: No symptoms or risk factors identified. Fall Risk Secondary diagnosis (15 points) CVA, IV access (20 points). Ambulatory Aid- Crutches/Cane/Walker (15 pts). Total Patel Fall Scale indicates High Risk Score (45 or more points). Fall prevention measures have been instituted. Side Rails Up X 2 Placed Close to Nursing Station. Assessment: 11:25 General: Appears comfortable, Behavior is calm, cooperative. Pain: Complains of pain in aa5 proximal phalanx of left thumb Pain does not radiate. Pain currently is 10 out of 10 on a pain scale. Quality of pain is described as shooting, tender, Is continuous, Aggravated by movement to left hand and touch. Neuro: Level of Consciousness is awake, alert, obeys commands, Oriented to person, place, time, situation, Telecommunication Engineer are Pt unable to red hat engineer with left hand due to pain. Right red hat engineer is strong. Moves all extremities. Speech is normal, Facial symmetry appears normal, Pupils are PERRLA, Reports generalized weakness. Pt states "I almost collapsed today, my son had to support me so I wouldn't fall getting into the car" . Cardiovascular: Heart tones S1 S2 present Rhythm is regular. Respiratory: Airway is patent Respiratory effort is even, unlabored, Respiratory pattern is regular, symmetrical, Breath sounds are clear bilaterally. GI: Abdomen is round non-distended, Bowel sounds present X 4 quads. Abd is soft and non tender X 4 quads. Reports intolerance of fluids, intolerance of food, Patient currently denies nausea, vomiting. : No signs and/or symptoms were reported regarding the genitourinary system. EENT: No signs and/or symptoms were reported regarding the EENT system. Derm: Skin is pink, warm \\T\\ dry. Redness noted to proximal phalanx of left thumb. Musculoskeletal: Range of motion: limited in left shoulder, left elbow, left wrist, left knee, left ankle, right shoulder, right elbow, right wrist, right knee and right ankle. 12:35 Reassessment: Patient is alert, oriented x 3, equal unlabored respirations, skin aa5 warm/dry/pink. Pt assisted with bedpan, pt voided 120cc . 13:05 Reassessment: Patient is alert, oriented x 3, equal unlabored respirations, skin aa5 warm/dry/pink. Pt assisted to restroom per pt's request, steady gait with walker. Pt voided x 1. Pt placed back in bed. Pt c/o increased pain to left hand, pt offered ice pack, pt declined, pt also declines pain medication. Pt states "I don't do well with ice or pain medications" . Pain: Pain currently is 10 out of 10 on a pain scale. 13:07 Reassessment: x-ray at bedside . aa5 13:45 Reassessment: Patient is alert, oriented x 3, equal unlabored respirations, skin aa5 warm/dry/pink. Pt lying down in bed. Awaiting x-ray results. . 13:55 Reassessment: Pt ambulated to restroom with walker. Voided x 1 . aa5 14:15 Reassessment: Patient is alert, oriented x 3, equal unlabored respirations, skin aa5 warm/dry/pink. Heel warmer placed per PA to left hand. Pt states "Heats helps me with the pain". . 15:00 Reassessment: Patient is alert, oriented x 3, equal unlabored respirations, skin aa5 warm/dry/pink. Pt reports pain has not improved. Dr. Soliman (pt's PCP) at bedside. 15:35 Reassessment: Unsuccessful attempt to draw uric acid and type and screen . aa5 15:45 Reassessment: Patient is alert, oriented x 3, equal unlabored respirations, skin aa5 warm/dry/pink. public works technician at bedside drawing uric acid and type and screen. . 16:30 Reassessment: Patient is alert, oriented x 3, equal unlabored respirations, skin aa5 warm/dry/pink. Pt sitting up in bed eating, pt tolerating well. . 18:00 Reassessment: Patient is alert, oriented x 3, equal unlabored respirations, skin aa5 warm/dry/pink. Vital Signs: 11:10 BP 147 / 71; Pulse 77; Resp 16 S; Temp 98.2(TE); Pulse Ox 98% on R/A; Weight 58.97 kg; iw Height 5 ft. 7 in. (170.18 cm); Pain 10/10; 12:30 BP 170 / 76; Pulse 67; Resp 16 S; Pulse Ox 100% on R/A; aa5 14:00 BP 155 / 103; Pulse 70; Resp 16 S; Pulse Ox 99% on R/A; aa5 15:30 BP 165 / 76; Pulse 68; Resp 18 S; Pulse Ox 98% on R/A; aa5 16:30 BP 140 / 75; Pulse 78; Resp 18 S; Temp 98.5(O); Pulse Ox 99% on R/A; aa5 17:30 BP 154 / 72; Pulse 80; Resp 16 S; Pulse Ox 98% on R/A; aa5 11:10 Body Mass Index 20.36 (58.97 kg, 170.18 cm) ED Course: 10:49 Patient arrived in ED. mr 11:09 Triage completed. iw 11:10 Arm band placed on. iw 11:25 Patient has correct armband on for positive identification. Bed in low position. Call aa light in reach. Side rails up X2. lunchroom monitor on. Pulse ox on. NIBP on. 11:29 Samir Ward PA is PHCP. [facility] 11:29 Rolando Casillas MD is Attending Physician. [facility] 11:31 Alysha Shin RN is Primary Nurse. [facility] 11:52 Initial lab(s) drawn, by ky, sent to lab. Inserted saline lock: 20 gauge in right [facility] antecubital area, using aseptic technique. Blood collected. 12:22 EKG done, by service center technician. reviewed by Samir MORALES. 3 13:24 XRAY Chest (1 view) In Process Unspecified. EDMS 13:24 X-ray completed. Portable x-ray completed in exam room. Patient tolerated procedure sw well. 13:25 Hand Left 3 View XRAY In Process Unspecified. EDMS 15:00 No provider procedures requiring assistance completed. [facility] 15:18 Wally Soliman MD is Hospitalizing Provider. [facility] 18:00 Patient admitted, IV remains in place. [facility] Administered Medications: 16:05 Drug: Rocephin - (cefTRIAXone) 1 grams {Note: administered slow IVP per pharmacy at [facility] this time.} Route: IVPB; Infused Over: 30 mins; Site: right antecubital; 16:25 Follow up: Response: No adverse reaction [facility] Outcome: 15:18 Decision to Hospitalize by Provider. [facility] 18:00 Admitted to Tele accompanied by [facility], via wheelchair, with chart, Report called to [facility] MIRIAM Gonzalez 18:00 Condition: stable 18:00 Instructed on the need for admit, Demonstrated understanding of instructions. 18:05 Patient left the ED. aa5 Signatures: Dispatcher [employer] EDMS Samir Ward PA PA jmm Rivera, Macey mr Kasandra Cole RN Alysha Pete RN RN aa5 Sindi Patino Shakira [facility]
[2019-02-16] MEDS ORDERED: CEFTRIAXONE/SWI 1gm 1 GM/10 ML SYR ONE (15:53)
[2019-02-16] MEDS ORDERED: TEMAZEPAM 15 MG CAP PO PRN (18:23)
[2019-02-16] MEDS: NA CHLORIDE 0.9% 1,000 ML IV SCH (18:25)
[2019-02-16] MEDS ORDERED: GLUCAGON 1 MG/VIAL IM PRN (20:16)
[2019-02-16] MEDS ORDERED: D50W 25 GM/50 ML SYRINGE IV PRN (20:16)
[2019-02-16] MEDS: MORPHINE 2 MG/ML SYR IV PRN (20:25)
[2019-02-16] MEDS: CEFTRIAXONE/SWI 1gm 1 GM/10 ML SYR IVP SCH (20:26)
[2019-02-16] MEDS: INSULIN -REGULAR HUMAN 50 UNIT/0.5 ML ML IV SCH (21:00)
[2019-02-16 23:11] VITALS: BMI 19.5
[2019-02-16] MEDS: ALPRAZOLAM 0.5 MG TABLET PO PRN (23:57)
[2019-02-17] MEDS: DEXAMETHASONE 4 MG/ML VIAL IV SCH ×3 (00:27→17:28)
[2019-02-17] MEDS: MORPHINE 2 MG/ML SYR IV PRN ×2 (00:27→04:33)
[2019-02-17 00:42] LABS: Urine Appearance CLEAR; Urine Bilirubin NEGATIVE (NEG); Urine Blood 1+ (NEG); Urine Color YELLOW; Urine Glucose NEGATIVE (NEG); Urine Protein 1+ (NEG)
[2019-02-17 00:43] LABS: Urine Urobilinogen 0.2 mg/dL (0.2-1.0)
[2019-02-17 00:49] LABS: Urine Microscopic Reflex ORDER UMIC
[2019-02-17 01:37] LABS: Urine Bacteria <20 /HPF (<20); Urine Culture Reflex Order NOT NEEDED; Urine RBC <5 /HPF (NONE SEEN)
[2019-02-17] MEDS: NA CHLORIDE 0.9% 1,000 ML IV SCH ×4 (04:32→20:29)
[2019-02-17 06:15] LABS: Absolute Lymphocytes (CBC) 0.6 K/uL (0.7-4.9); Absolute Monocytes 0.2 K/uL (0.1-1.3); Absolute Neutrophil 11.4 K/uL (1.8-8.0); Basophils % 0.1 % (0-1.3); Hematocrit 29.3 % (36.0-45.0); Lymphocytes % 4.7 % (15.3-44.8); MPV 7.6 fL (7.6-11.3); Monocytes % 1.8 % (3.3-12.3); RBC Red Blood Cell Count 3.86 M/uL (3.86-4.86)
[2019-02-17 08:31] LABS: Blood Morphology Comment NOT SEEN (NOT SEEN); Platelet Estimate ADEQ
[2019-02-17] MEDS: INSULIN -REGULAR HUMAN 50 UNIT/0.5 ML ML IV SCH ×4 (09:00→21:00)
[2019-02-17] MEDS: PARoxetine HCl 10 MG TAB PO SCH (09:36)
[2019-02-17] MEDS: CEFTRIAXONE/SWI 1gm 1 GM/10 ML SYR IVP SCH ×2 (09:37→20:29)
[2019-02-17] MEDS: ALPRAZOLAM 0.5 MG TABLET PO PRN (20:28)
--- NOTE | 2019-02-17 21:42 | PN ---
Date of Progress Note: 02/17/2019 The patient states the pain is much less than it was during the night and was quite severe. She has decreased motion at the joint that was affected today. Area of cellulitis instead of being circumscr ibed has been much less discovered, however, this extended proximally somewhat, undoubtedly celluliti s probable from a bite. We will continue with the IV antibiotics. Her appetite has improved somewha t. HR/MODL Voice ID: [id number] Report ID: [id number]
[2019-02-18] MEDS: INSULIN -REGULAR HUMAN 50 UNIT/0.5 ML ML IV SCH ×4 (07:30→20:29)
[2019-02-18] MEDS: NA CHLORIDE 0.9% 1,000 ML IV SCH ×4 (08:00→20:37)
[2019-02-18] MEDS: PARoxetine HCl 10 MG TAB PO SCH (09:02)
[2019-02-18] MEDS: CEFTRIAXONE/SWI 1gm 1 GM/10 ML SYR IVP SCH ×2 (09:03→20:36)
[2019-02-18] MEDS ORDERED: VANCOMYCIN/NS 1 gm 1 GM/250 ML BAG IV SCH (16:00)
[2019-02-18] MEDS ORDERED: DEXAMETHASONE 10 MG/ML VIAL IV ONE (18:23)
[2019-02-18] MEDS: CLINDAMYCIN INJ 900 MG in NA CHLORIDE 0.9% 50 ML IV SCH (20:35)
[2019-02-18] MEDS: ALPRAZOLAM 0.5 MG TABLET PO PRN (20:37)
[2019-02-18] MEDS: FAMOTIDINE 20 MG TAB PO SCH (22:09)
[2019-02-18] MEDS: MORPHINE 2 MG/ML SYR IV PRN (22:30)
[2019-02-19] MEDS: CLINDAMYCIN INJ 900 MG in NA CHLORIDE 0.9% 50 ML IV SCH ×3 (00:36→16:18)
[2019-02-19] MEDS: MORPHINE 2 MG/ML SYR IV PRN (02:11)
[2019-02-19] MEDS: NA CHLORIDE 0.9% 1,000 ML IV SCH ×3 (04:30→20:42)
[2019-02-19] MEDS: INSULIN -REGULAR HUMAN 50 UNIT/0.5 ML ML IV SCH ×4 (07:30→20:42)
[2019-02-19] MEDS ORDERED: VANCOMYCIN 0 GM in NA CHLORIDE 0.9% 500 ML IVPB SCH (09:00)
[2019-02-19] MEDS: PANTOPRAZOLE 40MG TABLET PO SCH (09:07)
[2019-02-19] MEDS: PARoxetine HCl 10 MG TAB PO SCH (09:07)
[2019-02-19] MEDS: CEFTRIAXONE/SWI 1gm 1 GM/10 ML SYR IVP SCH ×2 (09:08→20:40)
--- NOTE | 2019-02-19 17:44 | PN ---
Date of Progress Note: 02/18/2019 The area of the base of the thumb was somewhat improved. However, the cellulitis has continued to ex tend proximally. Also had some IV. Problems in this area were contributing to possible spread. In th e event, we will add vancomycin to the regimen. HR/MODL Voice ID: [id number] Report ID: [id number]
[2019-02-19] MEDS: FAMOTIDINE 20 MG TAB PO SCH (20:41)
[2019-02-19] MEDS: ALPRAZOLAM 0.5 MG TABLET PO PRN (20:41)
[2019-02-20] MEDS: CLINDAMYCIN INJ 900 MG in NA CHLORIDE 0.9% 50 ML IV SCH ×2 (01:06→08:04)
--- NOTE | 2019-02-20 02:21 | PN ---
Date of Progress Note: 02/19/2019 Subjective: The patient's thumb was markedly better. The cellulitis was improved as well. Decrease d edema, tenderness. She was started on the clindamycin after she had a reaction to the vancomycin. Unless there is a dramatic change tomorrow, she should be able go home on oral medication. HR/MODL Voice ID: [id number] Report ID: [id number]
[2019-02-20] MEDS: INSULIN -REGULAR HUMAN 50 UNIT/0.5 ML ML IV SCH ×2 (07:30→11:30)
[2019-02-20] MEDS: NA CHLORIDE 0.9% 1,000 ML IV SCH (08:03)
[2019-02-20] MEDS: PARoxetine HCl 10 MG TAB PO SCH (08:04)
[2019-02-20] MEDS: PANTOPRAZOLE 40MG TABLET PO SCH (08:04)
[2019-02-20] MEDS: CEFTRIAXONE/SWI 1gm 1 GM/10 ML SYR IVP SCH (08:04)
[2019-02-20 08:20] VITALS: O2SAT 97
[2019-02-20 12:02] VITALS: BP 177/75; TEMP 98.5
--- NOTE | 2019-02-21 11:55 | PN ---
Date of Progress Note: 02/20/2019 The patient continues to improve. Marked improvement in motion of the joint. No further reaction to vancomycin. The cellulitis has basically resolved proximally as well. We will discharge on Cleocin p.o. and prednisone if necessary. HR/MODL Voice ID: [id number] Report ID: [id number]
== END 2019-02-20 14:32 | disposition home or self-care (01) | DRG 603 ==
LOC: ER 10:47 → ERHOLD 15:24 → 4TH 17:56 → OBSVTOIN 02-19 09:33
PROVIDERS: ADMIT Family Medicine; ATTEND Family Medicine
DX: L03.114 Cellulitis of left upper limb (principal); I10 Essential (primary) hypertension; Z86.73 Personal history of transient ischemic attack (TIA), and cerebral infarction without residual deficits; Z88.2 Allergy status to sulfonamides
CPT/HCPCS: 36415; 70450; 71045; 80048; 80076; 81003; 81015; 82962; 83735; 83880; 84484; 84550; 85025; 85610; 86850; 86900; 86901; 93005; 96374; 99285; G0378; J0696; J1100; J2270; J3370; J7030

== ENCOUNTER 2019-02-26 18:10 | Emergency (ER) | payer OTHER ==
--- OUTSIDE RECORDS SUMMARY | 2019-02-26 18:13 | XMS REPORT | Clinical Summary ---
:1940 Author Organization [facility] Address [address] [place] [address] Care Team Providers Name Role Phone Wally Soliman Primary Care Provider Raymundo Miller Unavailable Allergies Active Allergy Reactions Severity Noted Date Comments Hydrocodone-Acetaminophen Other (See Comments) 04/13/2018 hyperactivity Lisinopril 04/13/2018 angioedema Butorphanol Tartrate Other (See Comments) 04/14/2018 Hallucinations Yciwdtl-Msi-Uio Reductase Other (See Comments) 04/14/2018 Flu like [...] Description 04/15/2018 Surgery Arnaldo Avelar REPAIR,EVAR-ENDOVAS MD aNt CULAR AORTIC ANEURYSM 04/15/2018 Anesthesia Event Ravi [...] aneurysm without rupture (HCC) (Primary Dx) after 02/25/2018 Social History Tobacco Use Types Packs/Day Years [...] Not on file Implants Implanted Type Area Mechanic'S Assistant Device Shelf Model / Identifier Expiration Serial / Date Lot Zbigniew Iliac Aaa Leg 13x90 [id number] - [id number] CV Aneurysm Right: COOK:AORTIC 10/13/2020 [id number] / Implanted: Qty: 1 on 04/15/2018 by Arnaldo Avelar MD Groin INTERVENTION / [id number] Closure Sys Perclose Progl 6fr 36960-34 - [id number] Cardiovascular Left: WANG 11/18/2019 [id number] / Implanted: Qty: 1 on 04/15/2018 by Arnaldo Avelar MD Groin LAB: VAS DEV / [id number] Closure Sys Perclose Progl 6fr 64749-29 - [id number] Cardiovascular Left: WANG 01/18/2020 [id number] / Implanted: Qty: 1 on 04/15/2018 by Arnaldo Avelar MD Groin LAB: VAS DEV / [id number] Closure Sys Perclose Progl 6fr 43729-98 - [id number] Cardiovascular Right: WANG 11/18/2019 [id number] / Implanted: Qty: 1 on 04/15/2018 by Arnaldo Avelar MD Groin LAB: VAS DEV / [id number] Closure Sys Perclose Progl 6fr 33734-96 - [id number] Cardiovascular Right: WANG 11/18/2019 [id number] / Implanted: Qty: 1 on 04/15/2018 by Arnaldo Avelar MD Groin LAB: VAS DEV / [id number] [id number] Endovascular Graft N/A: [employer] [facility] 02/27/2020 [id number] / Implanted: Qty: 1 on 04/15/2018 by Arnaldo Avelar MD Groin / [id number] [id number] Iliac Leg Graft Right: [employer] [facility] 12/28/2020 [id number] / Implanted: Qty: 1 on 04/15/2018 by [...] 428 ms QTC Calculation(Bazett) 413 ms P [place] 55 degrees R [place] -26 degrees T [place] 48 degrees Sinus bradycardia with 1st degree A-V block with Premature atrial complexes Voltage criteria for left ventricular hypertrophy Inferior infarct , age undetermined Anterolateral infarct , age undetermined Abnormal ECG No previous ECGs available ECG 12-LEAD Routine 04/14/2018 1:13 PM CDT Thoracic aortic Results for this aneurysm without procedure are in the rupture (HCC) results section. after 02/25/2018 Results RHYTHM STRIP - SCAN (01/05/2019 9:21 [...] MD Report Verified Date/Time:04/19/2018 10:16:05 Reading Location: [facility] Radiology Reading Room Procedure Note Interface, [...] Report Verified Date/Time: 04/19/2018 10:16:05 [facility] Performing Organization Address [facility] HospitalFL3XXhi Phone Number [facility] aPTT (04/19/2018 4:02 AM CDT)Only the most recent of5 resultswithin the time period is included. PTT 36.6 (H) 22.5 - 36.0 seconds [facility] Specimen Blood Performing Organization Address [facility] HospitalPhishMe Phone Number [address] [address] CENTER Prothrombin time/INR (04/19/2018 4:02 AM CDT)Only the most recent of6 resultswithin the time period is included. Protime 15.9 (H) 11.7 - 14.7 seconds [facility] INR 1.3 <=5.9 [facility] Specimen Blood Narrative Performed At [facility] RECOMMENDED COUMADIN/WARFARIN INR THERAPY RANGES STANDARD DOSE: 2.0 - 3.0 Includes: PROPHYLAXIS for venous thrombosis, systemic embolization; TREATMENT for venous thrombosis and/or pulmonary embolus. HIGH RISK: Target INR is 2.5-3.5 for patients with mechanical heart valves. Performing Organization Address [facility]/[employer] Phone Number [address] [address] [phone] CENTER CBC (Hemogram only) (04/19/2018 4:02 AM CDT)Only the most recent of4 resultswithin the time period is included. WBC 9.5 3.5 - 10.5 K/L [facility] RBC 3.64 (L) 3.93 - 5.22 M/L [facility] Hemoglobin 10.6 (L) 11.2 - 15.7 GM/DL [facility] Hematocrit 33.8 (L) 34.1 - 44.9 % [facility] MCV 92.9 79.4 - 94.8 fL [facility] MCH 29.1 25.6 - 32.2 pg [facility] MCHC 31.4 (L) 32.2 - 35.5 GM/DL [facility] RDW 14.1 11.7 - 14.4 % [facility] Platelets 232 150 - 450 K/CU MM [facility] MPV 10.9 9.4 - 12.3 fL [facility] nRBC 0 0 - 0 /100 WBC [facility] Specimen Blood Performing Organization Address City/[facility] Hospitalcode Phone Number [address] [address] CENTER Phosphorus (04/19/2018 4:02 AM CDT)Only the most recent of5 resultswithin the time period is included. Phosphorus 4.0 2.3 - 4.7 mg/dL [facility] Specimen Blood Performing Organization Address City/[facility]/Zipcode Phone Number [address] [address] CENTER Magnesium (04/19/2018 4:02 AM CDT)Only the most recent of4 resultswithin the time period is included. Magnesium 2.2 1.6 - 2.6 mg/dL [facility] Specimen Blood Performing Organization Address City/[facility]/Zipcode Phone Number [facility] [address] [place] [address] IMPERIAL Basic Metabolic Panel (04/19/2018 4:02 AM CDT)Only the most recent of5 resultswithin the time period is included. Sodium 141 136 - 145 meq/L [facility] Potassium 3.6 3.5 - 5.1 meq/L [facility] Chloride 106 98 - 107 meq/L [facility] CO2 28 22 - 29 meq/L [facility] BUN 20 7 - 21 mg/dL [facility] Creatinine 0.87 0.57 - 1.25 mg/dL [facility] Glucose 122 (H) 70 - 105 mg/dL [facility] Calcium 9.0 8.4 - 10.2 mg/dL [facility] EGFR 63Comment: ESTIMATED GFR IS mL/min/1.73 sq m [facility] NOT ACCURATE CREATININE [facility] CLEARANCE IN PREDICTING GLOMERULAR FILTRATION RATE. ESTIMATED GFR IS NOT APPLICABLE FOR DIALYSIS PATIENTS. Specimen Blood Performing Organization Address City/State/Zipcode Phone Number [facility] [address] [place] [address] [phone] IMPERIAL TRANSFUSION SERVICE REPORT - SCAN (04/15/2018 5:54 PM CDT) Narrative Performed At XR abdomen / KUB 1 view (04/15/2018 11:46 AM CDT) Specimen Narrative Performed At FINAL REPORT [facility] CLINICAL HISTORY: Postop AAA TECHNIQUE: Supine abdomen COMPARISON: None IMPRESSION: The bowel gas pattern is nonspecific. Free air and air-fluid levels are not seen but cannot be definitively excluded on the supine view. There is vicarious excretion of contrast in the bilateral nephroureteral collecting systems. There is an aortobiiliac stent. Signed: Hardik Godwin MD Report Verified Date/Time:04/15/2018 12:39:57 Reading Location: [facility] Radiology Reading Room Procedure Note Interface, [...] Report Verified Date/Time: 04/15/2018 12:39:57 Reading Location: [facility] Radiology Reading Room Performing Organization Address City/[facility]/Zipcode Phone Number [facility] Calcium, Ionized (04/15/2018 11:06 AM CDT) Calcium, Ion 1.25 1.12 - 1.27 mmol/L [facility] pH, Blood 7.37 [facility] Specimen Blood Performing Organization Address City/[facility]/Zipcode Phone Number [address] [address] CENTER CBC with platelet count + automated diff (04/15/2018 11:05 AM CDT)Only the most recent of2 resultswithin the time period is included. WBC 12.0 (H) 3.5 - 10.5 K/L [facility] RBC 3.84 (L) 3.93 - 5.22 M/L [facility] Hemoglobin 11.4 11.2 - 15.7 GM/DL [facility] Hematocrit 35.7 34.1 - 44.9 % [facility] MCV 93.0 79.4 - 94.8 fL [facility] MCH 29.7 25.6 - 32.2 pg [facility] MCHC 31.9 (L) 32.2 - 35.5 GM/DL [facility] RDW 14.1 11.7 - 14.4 % [facility] Platelets 207 150 - 450 K/CU MM [facility] MPV 10.7 9.4 - 12.3 fL [facility] nRBC 0 0 - 0 /100 WBC [facility] % Neutros 77 % [facility] % Lymphs 15 % [facility] % Monos 6 % [facility] % Eos 1 % [facility] % Baso 1 % [facility] # Neutros 9.14 (H) 1.56 - 6.13 K/L [facility] # Lymphs 1.78 1.18 - 3.74 K/L [facility] # Monos 0.72 (H) 0.24 - 0.36 K/L [facility] # Eos 0.16 0.04 - 0.36 K/L [facility] # Baso 0.06 0.01 - 0.08 K/L [facility] Immature Granulocytes-Relative 1 0 - 1 % [facility] Specimen Blood Performing Organization Address City/State/Zipcode Phone Number [address] [address] [phone] IMPERIAL POC ACTIVATED CLOTTING TIME (04/15/2018 9:02 AM CDT) Activated Clotting Time 257Comment: TESTED AT sec [address] [address] Specimen Blood Performing Organization Address City/[facility] Hospital[facility] Phone Number [address] [address] IMPERIAL XR chest 2 views (04/14/2018 1:39 PM [...] Report Verified Date/Time:04/14/2018 14:12:09 Reading Location: [address] Radiology Reading Room Procedure Note Interface, [...] Verified Date/Time: 04/14/2018 14:12:09 Reading Location: [address] Radiology Reading Room Performing Organization Address City/State/Zipcode Phone Number [facility] Urinalysis w/Microscopic (04/14/2018 1:18 PM CDT) Color, UA Yellow [facility] Clarity, UA Clear [facility] Specific [place], UA 1.010 1.001 - 1.035 [facility] pH, UA 6.5 5.0 - 8.0 [facility] Protein, UA 20 mg/dL (A) Negative [facility] Glucose, UA Negative Negative [facility] Ketones, UA Negative Negative [facility] Bilirubin, UA Negative Negative [facility] Blood, UA Negative Negative [facility] Nitrite, UA Negative Negative [facility] Leukocytes, UA Negative Negative [facility] Urobilinogen, UA 0.2 0.2 - 1.0 mg/dL [facility] RBC, UA <1 /HPF [facility] WBC, UA <1 /HPF [facility] Mucus Rare [facility] Squam Epithel, UA <1 /HPF [facility] Hyaline Casts, UA 4 /LPF [facility] Specimen Source [facility] Specimen Urine Performing Organization Address City/[facility] Phone Number [address] [address] CENTER Type and screen, automated (04/14/2018 1:17 PM CDT) ABO/RH AUTOMATED (GAMA) A POSITIVE [facility] Ab Scrn NEGATIVE [facility] Specimen Blood Performing Organization Address City/[facility] Phone Number [address] [address] [phone] HIV-1 Antigen with HIV-1/2 Antibody (04/14/2018 1:17 PM CDT) HIV-1 Antigen with HIV 1&2 NON-REACTIVE Nonreactive [facility] Specimen Blood Performing Organization Address City/[facility] Phone Number [address] [address] CENTER Hepatitis B Panel (04/14/2018 1:17 PM CDT) Hep B Core Total Ab NON-REACTIVE Nonreactive [facility] Hep B S Ab 63.1 (H) <8.0 mIU/mL [facility] hepatitis B Surface Ag NON-REACTIVE Nonreactive [facility] Specimen Blood Performing Organization Address City/[facility] Phone Number [address] [address] CENTER Hepatitis C antibody (04/14/2018 1:17 PM CDT) Hepatitis C Ab NON-REACTIVE Nonreactive [facility] Specimen Blood Performing Organization Address [facility] Hospital[facility] Phone Number [address] [address] CENTER Reticulocyte count (04/14/2018 1:17 PM CDT) % Retic 1.0 0.5 - 1.7 % [facility] Specimen Blood Performing Organization Address [facility] Phone Number [address] [address] CENTER Lipase (04/14/2018 1:17 PM CDT) Lipase 10 8 - 78 U/L [facility] Specimen Blood Performing Organization Address [facility] Phone Number [address] [address] IMPERIAL Lactate dehydrogenase (LDH) (04/14/2018 1:17 PM CDT) LDH 238 (H) 125 - 220 U/L [facility] Specimen Blood Performing Organization Address [facility] Phone Number [address] [address] CENTER Amylase (04/14/2018 1:17 PM CDT) Amylase 40 25 - 125 U/L [facility] Specimen Blood Performing Organization Address [facility] Phone Number [address] [address] IMPERIAL Hepatic function panel (04/14/2018 1:17 PM CDT) Protein, Total 7.1 6.0 - 8.3 gm/dL [facility] Albumin 4.0 3.5 - 5.0 g/dL [facility] Total Bilirubin 0.4 0.2 - 1.2 mg/dL [facility] Bilirubin, Direct 0.2 0.1 - 0.5 mg/dL [facility] Alkaline Phosphatase 135 40 - 150 U/L [facility] AST 22 5 - 34 U/L [facility] ALT 22 6 - 55 U/L [facility] Specimen Blood Performing Organization Address City/State/Zipcode Phone Number [facility] [address] [place] [address] [phone] CENTER ECG 12 lead (04/14/2018 1:13 PM CDT) Specimen Narrative Performed At Ventricular Rate 56 BPM GE MUSE Atrial Rate 56 BPM P-R Interval 218 ms QRS Duration 70 ms Q-T Interval 428 ms QTC Calculation(Bazett) 413 ms P [place] 55 degrees R [place] -26 degrees T [place] 48 degrees Sinus bradycardia with 1st degree [...] 428 ms QTC Calculation(Bazett) 413 ms P [place] 55 degrees R [place] -26 degrees T [place] 48 degrees Sinus bradycardia with 1st degree A-V block with Premature atrial complexes Voltage criteria for left ventricular hypertrophy Inferior infarct , age undetermined Anterolateral infarct , age undetermined Abnormal ECG No previous ECGs available Confirmed by MD JOHNSON JOSEPH P ([id number]) on 04/15/2018 5:58:45 AM Performing Organization Address City/State/Zipcode Phone Number MONIE MUSE after 02/25/2018 Insurance Payer Benefit Plan / Group Subscriber ID Type Phone Address MEDICARE MEDICARE A B xxxxxxxxxx Medicare MCR SUPPLEMENT/[employer] xxxxxxxx [facility] Advance Directives For more information, please contact:[address] [phone] Code Status Date Activated Date Inactivated Comments Full Code 04/15/2018 10:55 AM 04/19/2018 6:23 PM This code status was determined by: Patient Full Code 04/15/2018 6:03 AM 04/15/2018 10:55 AM This code status was determined by: Patient
--- OUTSIDE RECORDS SUMMARY | 2019-02-26 18:14 | XMS REPORT ---
:1940 [facility] [address] [place]gado [address] [place] [id number] Care Team Providers Name Role Phone DOMINIC [...] ID: VIEW, NON DEPT EVARShould this be [phone] Chest one view performed at the INDICATION: [...] Talavera Verified Date/Time: 04/19/2018 10:16:05 Reading Location: [facility] Radiology Reading Room PHORUS 2018-04-19 05:21:00 Test Item Value Reference Range Comments PHOSPHORUS (BEAKER) (test cauy=524) 4.0 mg/dL 2.3-4.7 [id number] 05:21:00 Test Item Value Reference Range Comments MAGNESIUM (BEAKER) (test adrv=143) 2.2 mg/dL 1.6-2.6 BASIC METABOLIC [id number] 05:21:00 Test Item Value Reference Range Comments SODIUM (BEAKER) (test 141 meq/L 136-145 ivuf=737) POTASSIUM (BEAKER) (test 3.6 meq/L 3.5-5.1 fpup=122) CHLORIDE (BEAKER) (test 106 meq/L 98-107 bvty=609) CO2 (BEAKER) (test 28 meq/L 22-29 lurj=670) BLOOD UREA NITROGEN 20 mg/dL 7-21 (BEAKER) (test dxst=677) CREATININE (BEAKER) (test 0.87 mg/dL 0.57-1.25 vfwe=768) GLUCOSE RANDOM (BEAKER) 122 mg/dL 70-105 (test jotz=969) CALCIUM (BEAKER) (test 9.0 mg/dL 8.4-10.2 fyws=991) EGFR (BEAKER) (test 63 mL/min/1.73 sq m ESTIMATED GFR IS NOT wdgc=2265) ACCURATE CREATININE CLEARANCE IN PREDICTING GLOMERULAR FILTRATION RATE. ESTIMATED GFR IS NOT APPLICABLE FOR DIALYSIS PATIENTS. [id number] 04:58:00 Test Item Value Reference Range Comments PARTIAL THROMBOPLASTIN TIME (BEAKER) (test 36.6 seconds 22.5-36.0 lyep=121) PROTHROMBIN TIME/[id number] 04:57:00 Test Item Value Reference Range Comments PROTIME (BEAKER) (test vgcu=090) 15.9 seconds 11.7-14.7 INR (BEAKER) (test kbrc=700) 1.3 <=5.9 RECOMMENDED COUMADIN/WARFARIN INR THERAPY RANGESSTANDARD DOSE: 2.0 - 3.0 Includes: PROPHYLAXIS forvenous thrombosis, systemic embolization; TREATMENT for venous thrombosis and/or pulmonary embolus.HIGH RISK: Target INR is 2.5-3.5 for patients with mechanical heart valves.CBC (HEMOGRAM ONLY)2018-04-19 04:47:00 Test Item Value Reference Range Comments WHITE BLOOD CELL COUNT (BEAKER) (test hojn=028) 9.5 K/ L 3.5-10.5 RED BLOOD CELL COUNT (BEAKER) (test xaol=417) 3.64 M/ L 3.93-5.22 HEMOGLOBIN (BEAKER) (test wara=316) 10.6 GM/DL 11.2-15.7 HEMATOCRIT (BEAKER) (test xoaz=894) 33.8 % 34.1-44.9 MEAN CORPUSCULAR VOLUME (BEAKER) (test pvhf=041) 92.9 fL 79.4-94.8 MEAN CORPUSCULAR HEMOGLOBIN (BEAKER) (test 29.1 pg 25.6-32.2 mgow=742) MEAN CORPUSCULAR HEMOGLOBIN CONC (BEAKER) (test 31.4 GM/DL 32.2-35.5 uful=734) RED CELL DISTRIBUTION WIDTH (BEAKER) (test 14.1 % 11.7-14.4 pcuv=640) PLATELET COUNT (BEAKER) (test vway=018) 232 K/CU MM 150-450 MEAN PLATELET VOLUME (BEAKER) (test kcdv=311) 10.9 fL 9.4-12.3 NUCLEATED RED BLOOD CELLS (BEAKER) (test 0 /100 WBC 0-0 effi=074) RAD, CHEST, 1 VIEW, NON [id number] 08:00:00Reason for exam:->S/P EVARShould this be performed [...] Talavera Verified Date/Time: 04/18/2018 08:00:53 Reading Location: [facility] Radiology Reading Room [id number] 05:25:00 Test Item Value Reference Range Comments PHOSPHORUS (BEAKER) (test sodn=859) 3.6 mg/dL 2.3-4.7 [id number] 05:25:00 Test Item Value Reference Range Comments MAGNESIUM (BEAKER) (test xgcr=873) 2.2 mg/dL 1.6-2.6 BASIC METABOLIC [id number] 05:25:00 Test Item Value Reference Range Comments SODIUM (BEAKER) (test 139 meq/L 136-145 hfow=822) POTASSIUM (BEAKER) (test 3.2 meq/L 3.5-5.1 bbvc=317) CHLORIDE (BEAKER) (test 103 meq/L 98-107 zahh=259) CO2 (BEAKER) (test 25 meq/L 22-29 owly=420) BLOOD UREA NITROGEN 17 mg/dL 7-21 (BEAKER) (test wdkw=801) CREATININE (BEAKER) (test 0.86 mg/dL 0.57-1.25 rkir=171) GLUCOSE RANDOM (BEAKER) 150 mg/dL 70-105 (test eoys=363) CALCIUM (BEAKER) (test 9.6 mg/dL 8.4-10.2 sssg=322) EGFR (BEAKER) (test 64 mL/min/1.73 sq m ESTIMATED GFR IS NOT abil=1565) ACCURATE CREATININE CLEARANCE IN PREDICTING GLOMERULAR FILTRATION RATE. ESTIMATED GFR IS NOT APPLICABLE FOR DIALYSIS PATIENTS. [id number] 05:06:00 Test Item Value Reference Range Comments PARTIAL THROMBOPLASTIN TIME (BEAKER) (test 36.5 seconds 22.5-36.0 jpkc=200) PROTHROMBIN TIME/[id number] 05:05:00 Test Item Value Reference Range Comments PROTIME (BEAKER) (test datu=246) 16.5 seconds 11.7-14.7 INR (BEAKER) (test ilqr=595) 1.3 <=5.9 RECOMMENDED COUMADIN/WARFARIN INR THERAPY RANGESSTANDARD DOSE: 2.0 - 3.0 Includes: PROPHYLAXIS forvenous thrombosis, systemic embolization; TREATMENT for venous thrombosis and/or pulmonary embolus.HIGH RISK: Target INR is 2.5-3.5 for patients with mechanical heart valves.CBC (HEMOGRAM ONLY)2018-04-18 04:52:00 Test Item Value Reference Range Comments WHITE BLOOD CELL COUNT (BEAKER) (test xzmv=818) 11.2 K/ L 3.5-10.5 RED BLOOD CELL COUNT (BEAKER) (test ejtd=450) 3.90 M/ L 3.93-5.22 HEMOGLOBIN (BEAKER) (test bdam=448) 11.3 GM/DL 11.2-15.7 HEMATOCRIT (BEAKER) (test ckwg=273) 35.7 % 34.1-44.9 MEAN CORPUSCULAR VOLUME (BEAKER) (test jitp=834) 91.5 fL 79.4-94.8 MEAN CORPUSCULAR HEMOGLOBIN (BEAKER) (test 29.0 pg 25.6-32.2 erwj=064) MEAN CORPUSCULAR HEMOGLOBIN CONC (BEAKER) (test 31.7 GM/DL 32.2-35.5 ginn=733) RED CELL DISTRIBUTION WIDTH (BEAKER) (test 14.2 % 11.7-14.4 ghob=932) PLATELET COUNT (BEAKER) (test kynw=615) 208 K/CU MM 150-450 MEAN PLATELET VOLUME (BEAKER) (test pljw=869) 10.6 fL 9.4-12.3 NUCLEATED RED BLOOD CELLS (BEAKER) (test 0 /100 WBC 0-0 ywfx=328) RAD, CHEST, 1 VIEW, NON [id number] 10:31:00Reason for exam:->S/P EVARShould this be performed at the bedside?->YesFINAL REPORT Chest, one view. HISTORY: Status post aortic repair COMPARISON: 2017 IMPRESSION: No significant change. Unchanged tortuosity and ectasia of the thoracic aorta.Mild interstitial edema. No large pleural effusion or pneumothorax. Signed: Gera Hernandez MDReport Verified Date/Time: 04/17/2018 10: 31:41 Reading Location: [facility] C013Y CT Body Reading Room [id number] 06: 43:00 Test Item Value Reference Range Comments PHOSPHORUS (BEAKER) (test vapn=002) 3.3 mg/dL 2.3-4.7 [id number] 06:43:00 Test Item Value Reference Range Comments MAGNESIUM (BEAKER) (test oqwv=442) 2.0 mg/dL 1.6-2.6 [id number] 06:23:00 Test Item Value Reference Range Comments PARTIAL THROMBOPLASTIN TIME (BEAKER) (test 36.4 seconds 22.5-36.0 effy=890) PROTHROMBIN [id number] 06:22:00 Test Item Value Reference Range Comments PROTIME (BEAKER) (test grdf=238) 17.3 seconds 11.7-14.7 INR (BEAKER) (test ptiq=764) 1.4 <=5.9 RECOMMENDED COUMADIN/WARFARIN INR THERAPY RANGESSTANDARD DOSE: 2.0 - 3.0 Includes: PROPHYLAXIS forvenous thrombosis, systemic embolization; TREATMENT for venous thrombosis and/or pulmonary embolus.HIGH RISK: Target INR is 2.5-3.5 for patients with mechanical heart valves.CBC (HEMOGRAM ONLY)2018-04-17 06:13:00 Test Item Value Reference Range Comments WHITE BLOOD CELL COUNT (BEAKER) (test jgef=516) 13.2 K/ L 3.5-10.5 RED BLOOD CELL COUNT (BEAKER) (test qsao=926) 3.84 M/ L 3.93-5.22 HEMOGLOBIN (BEAKER) (test jylp=452) 11.5 GM/DL 11.2-15.7 HEMATOCRIT (BEAKER) (test gdus=320) 34.9 % 34.1-44.9 MEAN CORPUSCULAR VOLUME (BEAKER) (test pjmt=599) 90.9 fL 79.4-94.8 MEAN CORPUSCULAR HEMOGLOBIN (BEAKER) (test 29.9 pg 25.6-32.2 zqgm=778) MEAN CORPUSCULAR HEMOGLOBIN CONC (BEAKER) (test 33.0 GM/DL 32.2-35.5 oggv=654) RED CELL DISTRIBUTION WIDTH (BEAKER) (test 14.0 % 11.7-14.4 hbby=074) PLATELET COUNT (BEAKER) (test whrb=637) 201 K/CU MM 150-450 MEAN PLATELET VOLUME (BEAKER) (test flsq=393) 10.6 fL 9.4-12.3 NUCLEATED RED BLOOD CELLS (BEAKER) (test 0 /100 WBC 0-0 apbi=249) RAD, CHEST, 1 VIEW, NON [id number] 09:02:00Reason for exam:->S/P EVARShould this be performed [...] MDReport Verified Date/Time: 04/16/2018 09:02:11 Reading Location: [facility] B1 C013Y CT Body Reading Room [id number] 06:11:00 Test Item Value Reference Range Comments PHOSPHORUS (BEAKER) (test ypyy=675) 1.9 mg/dL 2.3-4.7 [id number] 06:11:00 Test Item Value Reference Range Comments MAGNESIUM (BEAKER) (test pkmc=080) 2.0 mg/dL 1.6-2.6 BASIC METABOLIC [id number] 06:11:00 Test Item Value Reference Range Comments SODIUM (BEAKER) (test 137 meq/L 136-145 kvkw=005) POTASSIUM (BEAKER) (test 3.2 meq/L 3.5-5.1 eols=518) CHLORIDE (BEAKER) (test 104 meq/L 98-107 kfdp=550) CO2 (BEAKER) (test 24 meq/L 22-29 voek=928) BLOOD UREA NITROGEN 7 mg/dL 7-21 (BEAKER) (test suqi=941) CREATININE (BEAKER) (test 0.86 mg/dL 0.57-1.25 mjha=676) GLUCOSE RANDOM (BEAKER) 179 mg/dL 70-105 (test nmsi=347) CALCIUM (BEAKER) (test 9.0 mg/dL 8.4-10.2 jqan=773) EGFR (BEAKER) (test 64 mL/min/1.73 sq m ESTIMATED GFR IS NOT zzbb=3099) ACCURATE CREATININE CLEARANCE IN PREDICTING GLOMERULAR FILTRATION RATE. ESTIMATED GFR IS NOT APPLICABLE FOR DIALYSIS PATIENTS. [id number] 05:46:00 Test Item Value Reference Range Comments PARTIAL THROMBOPLASTIN TIME (BEAKER) (test 32.0 seconds 22.5-36.0 oyxo=223) PROTHROMBIN [id number] 05:45:00 Test Item Value Reference Range Comments PROTIME (BEAKER) (test tjxb=866) 15.0 seconds 11.7-14.7 INR (BEAKER) (test zibm=119) 1.2 <=5.9 RECOMMENDED COUMADIN/WARFARIN INR THERAPY RANGESSTANDARD DOSE: 2.0 - 3.0 Includes: PROPHYLAXIS forvenous thrombosis, systemic embolization; TREATMENT for venous thrombosis and/or pulmonary embolus.HIGH RISK: Target INR is 2.5-3.5 for patients with mechanical heart valves.CBC (HEMOGRAM ONLY)2018-04-16 05:31:00 Test Item Value Reference Range Comments WHITE BLOOD CELL COUNT (BEAKER) (test rjci=570) 12.0 K/ L 3.5-10.5 RED BLOOD CELL COUNT (BEAKER) (test ixzs=279) 4.19 M/ L 3.93-5.22 HEMOGLOBIN (BEAKER) (test inxm=209) 12.4 GM/DL 11.2-15.7 HEMATOCRIT (BEAKER) (test hgdk=131) 38.6 % 34.1-44.9 MEAN CORPUSCULAR VOLUME (BEAKER) (test djjx=986) 92.1 fL 79.4-94.8 MEAN CORPUSCULAR HEMOGLOBIN (BEAKER) (test 29.6 pg 25.6-32.2 crdc=644) MEAN CORPUSCULAR HEMOGLOBIN CONC (BEAKER) (test 32.1 GM/DL 32.2-35.5 nevl=605) RED CELL DISTRIBUTION WIDTH (BEAKER) (test 14.0 % 11.7-14.4 krzl=842) PLATELET COUNT (BEAKER) (test smet=630) 223 K/CU MM 150-450 MEAN PLATELET VOLUME (BEAKER) (test smmv=451) 10.3 fL 9.4-12.3 NUCLEATED RED BLOOD CELLS (BEAKER) (test 0 /100 WBC 0-0 qihz=796) [id number] 13:56:00 Test Item Value Reference Range Comments ACTIVATED CLOTTING TIME 257 sec TESTED AT [facility] [address] (BEAKER) (test gwtc=349) [place] [address] RAD, ABDOMEN/KUB, 1 VIEW [id number] 12:39:00Reason for exam:->Postop AAAFINAL REPORT CLINICAL HISTORY: Postop AAA TECHNIQUE: Supine abdomen COMPARISON: None IMPRESSION: The bowel gas pattern is nonspecific. Free air and air-fluid levels are not seen but cannot be definitively excluded on the supine view. There is vicarious excretion of contrast in the bilateral nephroureteral collecting systems. There is an aortobiiliac stent. Signed: Haridk GodwinMDReport Verified Date/Time: 2017 12:39:57 Reading Location: [facility] Radiology Reading Room RAD, CHEST , 1 VIEW, NON [id number] 12:38:00For chest painReason for exam:->post opShould this be performed at the bedside?->YesFINAL REPORT CLINICAL HISTORY: post op TECHNIQUE: 1 view of the chest. COMPARISON: 04/10/2018 IMPRESSION: There are no focal infiltrates or effusions. Cardiomegaly is again seen with tortuosity of the thoracic aorta. Signed: Hardik Godwin MDReport Verified Date/Time: 04/15/201812:38:40 Reading Location: [facility] Radiology Reading Room [id number] 11:51:00 Test Item Value Reference Range Comments PHOSPHORUS (BEAKER) (test vioj=198) 3.2 mg/dL 2.3-4.7 BASIC METABOLIC [id number] 11:51:00 Test Item Value Reference Range Comments SODIUM (BEAKER) (test 140 meq/L 136-145 hyob=559) POTASSIUM (BEAKER) (test 3.8 meq/L 3.5-5.1 zpaw=905) CHLORIDE (BEAKER) (test 109 meq/L 98-107 ricy=598) CO2 (BEAKER) (test 24 meq/L 22-29 dnlp=196) BLOOD UREA NITROGEN 12 mg/dL 7-21 (BEAKER) (test cmqk=686) CREATININE (BEAKER) (test 0.77 mg/dL 0.57-1.25 ovng=144) GLUCOSE RANDOM (BEAKER) 176 mg/dL 70-105 (test bvji=017) CALCIUM (BEAKER) (test 9.7 mg/dL 8.4-10.2 wfwa=202) EGFR (BEAKER) (test 73 mL/min/1.73 sq m ESTIMATED GFR IS NOT zhqi=2059) ACCURATE CREATININE CLEARANCE IN PREDICTING GLOMERULAR FILTRATION RATE. ESTIMATED GFR IS NOT APPLICABLE FOR DIALYSIS PATIENTS. CBC W/PLT COUNT & AUTO [id number] 11:23:00 Test Item Value Reference Range Comments WHITE BLOOD CELL COUNT (BEAKER) (test ogab=234) 12.0 K/ L 3.5-10.5 RED BLOOD CELL COUNT (BEAKER) (test azqq=544) 3.84 M/ L 3.93-5.22 HEMOGLOBIN (BEAKER) (test xuyf=725) 11.4 GM/DL 11.2-15.7 HEMATOCRIT (BEAKER) (test onbu=202) 35.7 % 34.1-44.9 MEAN CORPUSCULAR VOLUME (BEAKER) (test xdpk=519) 93.0 fL 79.4-94.8 MEAN CORPUSCULAR HEMOGLOBIN (BEAKER) (test 29.7 pg 25.6-32.2 uszq=101) MEAN CORPUSCULAR HEMOGLOBIN CONC (BEAKER) (test 31.9 GM/DL 32.2-35.5 hzzs=117) RED CELL DISTRIBUTION WIDTH (BEAKER) (test 14.1 % 11.7-14.4 czot=948) PLATELET COUNT (BEAKER) (test rsut=353) 207 K/CU MM 150-450 MEAN PLATELET VOLUME (BEAKER) (test nvjq=722) 10.7 fL 9.4-12.3 NUCLEATED RED BLOOD CELLS (BEAKER) (test 0 /100 WBC 0-0 abiv=594) NEUTROPHILS RELATIVE PERCENT (BEAKER) (test 77 % risz=007) LYMPHOCYTES RELATIVE PERCENT (BEAKER) (test 15 % yrvv=084) MONOCYTES RELATIVE PERCENT (BEAKER) (test 6 % sypv=816) EOSINOPHILS RELATIVE PERCENT (BEAKER) (test 1 % pmlj=701) BASOPHILS RELATIVE PERCENT (BEAKER) (test 1 % zulr=958) NEUTROPHILS ABSOLUTE COUNT (BEAKER) (test 9.14 K/ L 1.56-6.13 mrck=731) LYMPHOCYTES ABSOLUTE COUNT (BEAKER) (test 1.78 K/ L 1.18-3.74 psef=930) MONOCYTES ABSOLUTE COUNT (BEAKER) (test 0.72 K/ L 0.24-0.36 xjph=197) EOSINOPHILS ABSOLUTE COUNT (BEAKER) (test 0.16 K/ L 0.04-0.36 ilgn=776) BASOPHILS ABSOLUTE COUNT (BEAKER) (test 0.06 K/ L 0.01-0.08 ezyh=965) IMMATURE GRANULOCYTES-RELATIVE PERCENT (BEAKER) 1 % 0-1 (test yxis=2964) PROTHROMBIN [id number] 11:22:00 Test Item Value Reference Range Comments PROTIME (BEAKER) (test caia=888) 15.7 seconds 11.7-14.7 INR (BEAKER) (test kskd=954) 1.3 <=5.9 RECOMMENDED COUMADIN/WARFARIN INR THERAPY RANGESSTANDARD DOSE: 2.0 - 3.0 Includes: PROPHYLAXIS forvenous thrombosis, systemic embolization; TREATMENT for venous thrombosis and/or pulmonary embolus.HIGH RISK: Target INR is 2.5-3.5 for patients with mechanical heart valves.CALCIUM, [id number] 11:06:00 Test Item Value Reference Range Comments CALCIUM IONIZED (BEAKER) (test ofph=504) 1.25 mmol/L 1.12-1.27 PH, BLOOD (BEAKER) (test jnvf=4487) 7.37 HEPATITIS C [id number] 15:18:00 Test Item Value Reference Range Comments HEPATITIS C ANTIBODY (BEAKER) (test szqu=239) Nonreactive Nonreactive HEPATITIS B [id number] 15:18:00 Test Item Value Reference Range Comments HEPATITIS B CORE TOTAL ANTIBODY (BEAKER) (test Nonreactive Nonreactive uzlp=329) HEPATITIS B SURFACE ANTIBODY (BEAKER) (test 63.1 mIU/mL <8.0 gtqe=212) HEPATITIS B SURFACE ANTIGEN (2) (BEAKER) (test Nonreactive Nonreactive swfz=8181) HIV-1 ANTIGEN WITH HIV-1/2 [id number] 15:18:00 Test Item Value Reference Range Comments HIV-1 ANTIGEN WITH HIV 1\T\2 ANTIBODY (2) Nonreactive Nonreactive (BEAKER) (test vugs=2196) [id number] 15:08:00 Test Item Value Reference Range Comments LIPASE (BEAKER) (test aiwx=455) 10 U/L 8-78 [id number] 15:08:00 Test Item Value Reference Range Comments AMYLASE (BEAKER) (test oipo=401) 40 U/L 25-125 BASIC METABOLIC [id number] 15:08:00 Test Item Value Reference Range Comments SODIUM (BEAKER) (test 141 meq/L 136-145 ohnb=101) POTASSIUM (BEAKER) (test 3.6 meq/L 3.5-5.1 tmhm=965) CHLORIDE (BEAKER) (test 104 meq/L 98-107 lkwc=675) CO2 (BEAKER) (test 27 meq/L 22-29 elna=703) BLOOD UREA NITROGEN 12 mg/dL 7-21 (BEAKER) (test swrz=845) CREATININE (BEAKER) (test 0.86 mg/dL 0.57-1.25 ffus=433) GLUCOSE RANDOM (BEAKER) 112 mg/dL 70-105 (test hthp=270) CALCIUM (BEAKER) (test 9.8 mg/dL 8.4-10.2 qcff=509) EGFR (BEAKER) (test 64 mL/min/1.73 sq m ESTIMATED GFR IS NOT ruec=4269) ACCURATE CREATININE CLEARANCE IN PREDICTING GLOMERULAR FILTRATION RATE. ESTIMATED GFR IS NOT APPLICABLE FOR DIALYSIS PATIENTS. HEPATIC FUNCTION [id number] 15:08:00 Test Item Value Reference Range Comments TOTAL PROTEIN (BEAKER) (test yske=879) 7.1 gm/dL 6.0-8.3 ALBUMIN (BEAKER) (test bwew=6969) 4.0 g/dL 3.5-5.0 BILIRUBIN TOTAL (BEAKER) (test ndli=319) 0.4 mg/dL 0.2-1.2 BILIRUBIN DIRECT (BEAKER) (test aisu=728) 0.2 mg/dL 0.1-0.5 ALKALINE PHOSPHATASE (BEAKER) (test pqrf=703) 135 U/L 40-150 AST (SGOT) (BEAKER) (test dbrt=393) 22 U/L 5-34 ALT (SGPT) (BEAKER) (test ggha=701) 22 U/L 6-55 LACTATE DEHYDROGENASE (LDH)2018-04-14 15:08:00 Test Item Value Reference Range Comments LACTATE DEHYDROGENASE (BEAKER) (test pncx=179) 238 U/L 125-220 [id number] 14:47:00 Test Item Value Reference Range Comments PARTIAL THROMBOPLASTIN TIME (BEAKER) (test 31.9 seconds 22.5-36.0 psqj=303) PROTHROMBIN TIME/[id number] 14:46:00 Test Item Value Reference Range Comments PROTIME (BEAKER) (test rsig=824) 14.1 seconds 11.7-14.7 INR (BEAKER) (test cwxr=103) 1.1 <=5.9 RECOMMENDED COUMADIN/WARFARIN INR THERAPY RANGESSTANDARD DOSE: 2.0 - 3.0 Includes: PROPHYLAXIS forvenous thrombosis, systemic embolization; TREATMENT for venous thrombosis and/or pulmonary embolus.HIGH RISK: Target INR is 2.5-3.5 for patients with mechanical heart valves.RETICULOCYTE [id number] 14:36:00 Test Item Value Reference Range Comments RETICULOCYTE COUNT PCT (BEAKER) (test qjbx=708) 1.0 % 0.5-1.7 CBC W/PLT COUNT & AUTO [id number] 14:36:00 Test Item Value Reference Range Comments WHITE BLOOD CELL COUNT (BEAKER) (test xtqr=415) 9.3 K/ L 3.5-10.5 RED BLOOD CELL COUNT (BEAKER) (test jxis=981) 4.05 M/ L 3.93-5.22 HEMOGLOBIN (BEAKER) (test cerf=313) 12.2 GM/DL 11.2-15.7 HEMATOCRIT (BEAKER) (test wlii=770) 37.2 % 34.1-44.9 MEAN CORPUSCULAR VOLUME (BEAKER) (test wveq=879) 91.9 fL 79.4-94.8 MEAN CORPUSCULAR HEMOGLOBIN (BEAKER) (test 30.1 pg 25.6-32.2 tonq=263) MEAN CORPUSCULAR HEMOGLOBIN CONC (BEAKER) (test 32.8 GM/DL 32.2-35.5 yhmr=103) RED CELL DISTRIBUTION WIDTH (BEAKER) (test 14.2 % 11.7-14.4 pitl=194) PLATELET COUNT (BEAKER) (test sgif=873) 259 K/CU MM 150-450 MEAN PLATELET VOLUME (BEAKER) (test snuj=049) 11.1 fL 9.4-12.3 NUCLEATED RED BLOOD CELLS (BEAKER) (test 0 /100 WBC 0-0 alkq=667) NEUTROPHILS RELATIVE PERCENT (BEAKER) (test 70 % glfi=055) LYMPHOCYTES RELATIVE PERCENT (BEAKER) (test 19 % rahq=054) MONOCYTES RELATIVE PERCENT (BEAKER) (test 8 % ifch=773) EOSINOPHILS RELATIVE PERCENT (BEAKER) (test 2 % lvwe=902) BASOPHILS RELATIVE PERCENT (BEAKER) (test 1 % zwus=200) NEUTROPHILS ABSOLUTE COUNT (BEAKER) (test 6.49 K/ L 1.56-6.13 povj=777) LYMPHOCYTES ABSOLUTE COUNT (BEAKER) (test 1.74 K/ L 1.18-3.74 iwfc=415) MONOCYTES ABSOLUTE COUNT (BEAKER) (test 0.78 K/ L 0.24-0.36 tdce=680) EOSINOPHILS ABSOLUTE COUNT (BEAKER) (test 0.14 K/ L 0.04-0.36 ueng=062) BASOPHILS ABSOLUTE COUNT (BEAKER) (test 0.07 K/ L 0.01-0.08 bvpq=640) IMMATURE GRANULOCYTES-RELATIVE PERCENT (BEAKER) 0 % 0-1 (test xffy=7696) URINALYSIS W/ [id number] 14:25:00 Test Item Value Reference Range Comments COLOR (BEAKER) (test przm=153) Yellow CLARITY (BEAKER) (test zkqf=180) Clear SPECIFIC GRAVITY UA (BEAKER) (test taoq=166) 1.010 1.001-1.035 PH UA (BEAKER) (test oxjj=994) 6.5 5.0-8.0 PROTEIN UA (BEAKER) (test niki=034) 20 mg/dL Negative GLUCOSE UA (BEAKER) (test fjfw=935) Negative Negative KETONES UA (BEAKER) (test hsms=930) Negative Negative BILIRUBIN UA (BEAKER) (test ybxd=037) Negative Negative BLOOD UA (BEAKER) (test afjw=913) Negative Negative NITRITE UA (BEAKER) (test xtax=680) Negative Negative LEUKOCYTE ESTERASE UA (BEAKER) (test okxg=603) Negative Negative UROBILINOGEN UA (BEAKER) (test gtrq=296) 0.2 mg/dL 0.2-1.0 RBC UA (BEAKER) (test qhlm=930) < /HPF WBC UA (BEAKER) (test nunz=869) < /HPF MUCUS (BEAKER) (test nzag=8265) Rare SQUAMOUS EPITHELIAL (BEAKER) (test ljau=706) < /HPF HYALINE CASTS (BEAKER) (test imqy=593) 4 /LPF SOURCE(BEAKER) (test orcq=5265) RAD, CHEST, 2 [id number] 14:12:00Reason for exam:->surgeryFINAL REPORT Chest, two views HISTORY: Surgery COMPARISON: None. DISCUSSION: Lungs are clear without focal consolidation. Cardiomediastinal silhouette is unremarkable. Tortuosityand ectasia of the thoracic aorta. No acute osseous abnormality. No pleural effusion or pneumothorax. Visualized portions of the upper abdomen are unremarkable. IMPRESSION: No acute cardiopulmonary abnormality. Signed: Gera Hernandez MDReport Verified Date/Time: 04/14/2018 14:12:09 Reading Location: [address] Radiology Reading Room 02:12 PM
[2019-02-26] MEDS ORDERED: MORPHINE 4 MG/ML SYR ONE (20:45)
--- NOTE | 2019-02-26 21:13 | ER ---
Nurse's Notes [facility] Name: Syl Sheikh Age: 78 yrs Sex: Female : 1940 Arrival Date: 02/26/2019 Time: 18:14 Bed 15 Private MD: Diagnosis: Pain in left shoulder Presentation: 02/26 18:23 Presenting complaint: Left shoulder pain x 1 week. Denies injury. Pt reports recent hospitalization for cellulitis in left hand, shoulder pain began while inpatient. Transition of care: patient was not received from another setting of care. Onset of symptoms was February 18, 2019. Risk Assessment: Do you want to hurt yourself or someone else? Patient reports no desire to harm self or others. Care prior to arrival: None. 18:23 Method Of Arrival: Wheelchair hb 18:23 Acuity: MP 3 hb 19:10 Initial Sepsis Screen: Does the patient meet any 2 criteria? No. Patient's initial tl2 sepsis screen is negative. Does the patient have a suspected source of infection? No. Patient's initial sepsis screen is negative. Historical: - Allergies: 18:26 butorphanol tartrate; hb 18:26 Codeine; hb 18:26 Hydrocodone-Acetaminophen; hb 18:26 Lisinopril; hb 18:26 Stadol; hb 18:26 statin drugs; hb - Immunization history:: Adult Immunizations up to date. - Social history:: Smoking status: Patient/guardian denies using tobacco. - Ebola Screening: : No symptoms or risks identified at this time. Screenin:39 Abuse screen: Denies threats or abuse. Nutritional screening: No deficits noted. tl2 Tuberculosis screening: No symptoms or risk factors identified. Fall Risk Gait- Weak (10 pts.). Assessment: 19:39 Reassessment: Pt reports being admitted to the hospital recently for cellulitis of the tl2 left hand. Pt reports using that shoulder to move up in bed. Pt also reports general weakness since being released from the hospital. General: Appears in no apparent distress. uncomfortable, Behavior is calm, cooperative, appropriate for age. Pain: Complains of pain in left shoulder Quality of pain is described as aching, Aggravated by increased activity. Neuro: Level of Consciousness is awake, alert, obeys commands, Oriented to person, place, time, situation. Cardiovascular: Denies chest pain. Respiratory: Airway is patent Respiratory effort is even, unlabored, Respiratory pattern is regular, symmetrical. GI: No signs and/or symptoms were reported involving the gastrointestinal system. Derm: Skin is pink, warm \T\ dry. 21:00 Reassessment: Patient appears in no apparent distress at this time. Patient and/or tl2 family updated on plan of care and expected duration. Pain level reassessed. Patient is alert, oriented x 3, equal unlabored respirations, skin warm/dry/pink. 22:00 Reassessment: Patient appears in no apparent distress at this time. Patient and/or tl2 family updated on plan of care and expected duration. Pain level reassessed. Patient is alert, oriented x 3, equal unlabored respirations, skin warm/dry/pink. pt and family verbalized understanding of discharge instructions, need for follow up and prescription usage. Vital Signs: 18:25 BP 168 / 88; Pulse 109; Resp 16; Temp 98.6; Pulse Ox 100% on R/A; Weight 56.7 kg; hb Height 5 ft. 7 in. (170.18 cm); Pain 8/10; 19:38 BP 155 / 88; Pulse 94; Resp 18; Temp 98.5(O); Pulse Ox 97% on R/A; tl2 20:45 BP 168 / 85; Pulse 97; Resp 18; Pulse Ox 96% on R/A; tl2 22:00 BP 161 / 99; Pulse 89; Resp 18; Pulse Ox 97% on R/A; tl2 18:25 Body Mass Index 19.58 (56.70 kg, 170.18 cm) hb ED Course: 18:14 Patient arrived in ED. mr 18:25 Triage completed. hb 18:25 Arm band placed on. hb 19:33 Liyah Mendenhall FNP-C is PHCP. snw 19:34 Jovany Howell MD is Attending Physician. snw 19:39 Patient has correct armband on for positive identification. Bed in low position. Call tl2 light in reach. Side rails up X2. 20:45 Rabia Schmidt, MIRIAM is Primary Nurse. tl2 21:05 Shoulder Left (2 View) XRAY In Process Unspecified. EDMS 22:00 No provider procedures requiring assistance completed. Patient did not have IV access tl2 during this emergency room visit. Administered Medications: 20:44 Drug: morphine 4 mg Route: IM; Site: right deltoid; tl2 21:30 Follow up: Response: No adverse reaction; Pain is decreased tl2 21:24 Drug: Valium 2 mg Route: PO; tl2 22:03 Follow up: Response: No adverse reaction tl2 Outcome: 21:13 Discharge ordered by MD. portillo 22:00 Discharged to home via wheelchair, with family. tl2 22:00 Condition: stable 22:00 Discharge instructions given to patient, family, Instructed on discharge instructions, follow up and referral plans. medication usage, Demonstrated understanding of instructions, follow-up care, medications, Prescriptions given X 1. 22:03 Patient left the ED. tl2 Signatures: Dispatcher [employer] EDMS Liyah Mendenhall, ARLETTE CASINO DEALER-Macey Rivera Heather, Rabia Carey RN, RN RN tl2 Corrections: (The following items were deleted from the chart) 22:01 21:00 Reassessment: Patient appears in no apparent distress at this time. Patient tl2 and/or family updated on plan of care and expected duration. Pain level reassessed. Patient is alert, oriented x 3, equal unlabored respirations, skin warm/dry/pink. pt and family verbalized understanding of discharge instructions, need for follow up and prescription usage tl2
--- NOTE | 2019-02-26 21:14 | EDPHYS ---
Physician Documentation [facility] Name: Syl Sheikh Age: 78 yrs Sex: Female : 1940 Arrival Date: 02/26/2019 Time: 18:14 Bed 15 Private MD: ED Physician Jovany Howell HPI: 02/26 20:44 This 78 yrs old Female presents to ER via Wheelchair with complaints of snw Shoulder Pain. 20:44 The patient or guardian complains of decreased range of motion, pain, that is acute. snw left shoulder. 20:45 Context: The problem was sustained at home, at the hospital, resulted from infection in snw hand, decreased use of left shoulder, The patient experiences decreased range of motion, when attempts to raise arm, The patient reports no obvious deformity. Onset: The symptoms/episode began/occurred 4 day(s) ago, and became worse and became persistent. Associated signs and symptoms: The patient has no apparent associated signs or symptoms. Severity of symptoms: At their worst the symptoms were moderate. Treatment prior to arrival includes: no previous treatment. It is unknown whether or not the patient has had similar symptoms in the past. The patient has been recently seen by a physician: the patient's primary care provider, Dr. Soliman with similar presenting complaints. pt is allergic to a lot of pain medications and is not able to take NSAIDs/Steroids 2nd to GI problems. Historical: - Allergies: 18:26 butorphanol tartrate; hb 18:26 Codeine; hb 18:26 Hydrocodone-Acetaminophen; hb 18:26 Lisinopril; hb 18:26 Stadol; hb 18:26 statin drugs; hb - Immunization history:: Adult Immunizations up to date. - Social history:: Smoking status: Patient/guardian denies using tobacco. - Ebola Screening: : No symptoms or risks identified at this time. ROS: 20:43 Constitutional: Negative for fever, chills, and weight loss, Eyes: Negative for injury, snw pain, redness, and discharge, ENT: Negative for injury, pain, and discharge, Neck: Negative for injury, pain, and swelling, Cardiovascular: Negative for chest pain, palpitations, and edema, Respiratory: Negative for shortness of breath, cough, wheezing, and pleuritic chest pain, Abdomen/GI: Negative for abdominal pain, nausea, vomiting, diarrhea, and constipation, Back: Negative for injury and pain, : Negative for injury, bleeding, discharge, and swelling, Skin: Negative for injury, rash, and discoloration, Neuro: Negative for headache, weakness, numbness, tingling, and seizure. 20:43 MS/extremity: Positive for decreased range of motion, pain, tenderness, of the anterior aspect of left shoulder. Exam: 20:43 Constitutional: This is a well developed, well nourished patient who is awake, alert, snw and in no acute distress. Head/Face: Normocephalic, atraumatic. Eyes: Pupils equal round and reactive to light, extra-ocular motions intact. Lids and lashes normal. Conjunctiva and sclera are non-icteric and not injected. Cornea within normal limits. Periorbital areas with no swelling, redness, or edema. ENT: Nares patent. No nasal discharge, no septal abnormalities noted. Tympanic membranes are normal and external auditory canals are clear. Oropharynx with no redness, swelling, or masses, exudates, or evidence of obstruction, uvula midline. Mucous membranes moist. Neck: Trachea midline, no thyromegaly or masses palpated, and no cervical lymphadenopathy. Supple, full range of motion without nuchal rigidity, or vertebral point tenderness. No Meningismus. Chest/axilla: Normal chest wall appearance and motion. Nontender with no deformity. No lesions are appreciated. Cardiovascular: Regular rate and rhythm with a normal S1 and S2. No gallops, murmurs, or rubs. Normal PMI, no JVD. No pulse deficits. Respiratory: Lungs have equal breath sounds bilaterally, clear to auscultation and percussion. No rales, rhonchi or wheezes noted. No increased work of breathing, no retractions or nasal flaring. Abdomen/GI: Soft, non-tender, with normal bowel sounds. No distension or tympany. No guarding or rebound. No evidence of tenderness throughout. Back: No spinal tenderness. No costovertebral tenderness. Full range of motion. Skin: Warm, dry with normal turgor. Normal color with no rashes, no lesions, and no evidence of cellulitis. Neuro: Awake and alert, GCS 15, oriented to person, place, time, and situation. Cranial nerves II-XII grossly intact. Motor strength 5/5 in all extremities. Sensory grossly intact. Cerebellar exam normal. Normal gait. Psych: Awake, alert, with orientation to person, place and time. Behavior, mood, and affect are within normal limits. 20:43 Musculoskeletal/extremity: ROM: limited passive range of motion, limited passive range of motion due to pain, Circulation is intact in all extremities. Compartment Syndrome exam of affected extremity: is normal. 20:45 Musculoskeletal/extremity: Extremities: grossly normal except: noted in the left snw shoulder: Vital Signs: 18:25 BP 168 / 88; Pulse 109; Resp 16; Temp 98.6; Pulse Ox 100% on R/A; Weight 56.7 kg; hb Height 5 ft. 7 in. (170.18 cm); Pain 8/10; 19:38 BP 155 / 88; Pulse 94; Resp 18; Temp 98.5(O); Pulse Ox 97% on R/A; tl2 20:45 BP 168 / 85; Pulse 97; Resp 18; Pulse Ox 96% on R/A; tl2 22:00 BP 161 / 99; Pulse 89; Resp 18; Pulse Ox 97% on R/A; tl2 18:25 Body Mass Index 19.58 (56.70 kg, 170.18 cm) hb MDM: 19:34 Patient medically screened. snw 21:14 Data reviewed: vital signs, nurses notes. Data interpreted: Pulse oximetry: on room air snw is 96 %. Interpretation: normal. Counseling: I had a detailed discussion with the patient and/or guardian regarding: the historical points, exam findings, and any diagnostic results supporting the discharge/admit diagnosis, the presence of at least one elevated blood pressure reading (>120/80) during this emergency department visit, radiology results, the need for outpatient follow up, to return to the emergency department if symptoms worsen or persist or if there are any questions or concerns that arise at home. Special discussion: I have referred the patient to see his PCP for further evaluation of high blood pressure. Based on the history and exam findings, there is no indication for further emergent testing or inpatient evaluation. I discussed with the patient/guardian the need to see the orthopedic surgeon for further evaluation of the symptoms. I discussed with the patient/guardian the need to see the primary care provider for further evaluation of the symptoms. 02/26 20:16 Order name: Shoulder Left (2 View) XRAY snw 02/26 20:48 Order name: Sling; Complete Time: 21:11 snw Administered Medications: 20:44 Drug: morphine 4 mg Route: IM; Site: right deltoid; tl2 21:30 Follow up: Response: No adverse reaction; Pain is decreased tl2 21:24 Drug: Valium 2 mg Route: PO; tl2 22:03 Follow up: Response: No adverse reaction tl2 Disposition: 02/26/19 21:13 Discharged to Home. Impression: Pain in left shoulder. - Condition is Stable. - Discharge Instructions: Joint Pain, Musculoskeletal Pain, Shoulder Pain, Shoulder Range of Motion Exercises, Cryotherapy, Heat Therapy, How to Use a Sling. - Prescriptions for orphenadrine citrate 100 mg Oral Tablet Sustained Release - take 1 tablet by ORAL route 2 times per day As needed; 20 tablet. - Medication Reconciliation Form, Thank You Letter, Antibiotic Education, Prescription Opioid Use form. - Follow up: Private Physician; When: Tomorrow; Reason: Recheck today's complaints, Continuance of care, Re-evaluation by your physician. Follow up: Emergency Department; When: As needed; Reason: Worsening of condition. Signatures: Dispatcher [employer] EDSC Liyah Mendenhall, PERSONAL PROTECTION SPECIALIST-C PERSONAL PROTECTION SPECIALIST-CsnGenny Barnes RN RN Rabia Schmidt RN RN tl2 Corrections: (The following items were deleted from the chart) 22:03 21:13 02/26/2019 21:13 Discharged to Home. Impression: Pain in left shoulder. Condition tl2 is Stable. Forms are Medication Reconciliation Form, Thank You Letter, Antibiotic Education, Prescription Opioid Use. Follow up: Private Physician; When: Tomorrow; Reason: Recheck today's complaints, Continuance of care, Re-evaluation by your physician. Follow up: Emergency Department; When: As needed; Reason: Worsening of condition. snw
[2019-02-26] MEDS ORDERED: DIAZEPAM 2 MG TABLET ONE (21:31)
[2019-02-26 23:05] VITALS: TEMP 98.5
[2019-02-26 23:10] VITALS: BP 161/99; O2SAT 97
--- NOTE | 2019-02-27 08:39 | RAD REPORT ---
EXAM DESCRIPTION: RAD - Shoulder Left 2 View - 02/26/2019 9:05 pm CLINICAL HISTORY: Nontraumatic left shoulder pain COMPARISON: None. TECHNIQUE: Internal and external rotation views of the left shoulder were obtained. FINDINGS: There is no fracture or dislocation. AC joint is normal in appearance. No acute or suspici ous findings. IMPRESSION: Negative two-view left shoulder examination.
== END 2019-02-26 22:03 | disposition home or self-care (01) ==
LOC: ER 18:10
DX: M25.512 Pain in left shoulder (principal); Z88.5 Allergy status to narcotic agent; Z88.6 Allergy status to analgesic agent; Z88.8 Allergy status to other drugs, medicaments and biological substances
CPT/HCPCS: 96372; 99283

== ENCOUNTER 2019-02-28 12:11 | Observation (INO) | payer OTHER ==
--- OUTSIDE RECORDS SUMMARY | 2019-02-28 12:16 | XMS REPORT | Clinical Summary ---
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/27/2018 Social History Tobacco Use Types Packs/Day Years [...] Not on file Implants Implanted Type Area Mail Clerk Device Shelf Model / Identifier Expiration Serial / Date Lot Zbigniew Iliac Aaa Leg 13x90 [id number] - [id number] CV Aneurysm Right: COOK:AORTIC 10/13/2020 [id number] / Implanted: Qty: 1 on 04/15/2018 by Arnaldo Avelar MD Groin INTERVENTION / [id number] Closure Sys Perclose Progl 6fr 01688-20 - [id number] Cardiovascular Left: WANG 11/18/2019 [id number] / Implanted: Qty: 1 on 04/15/2018 by Arnaldo Avelar MD Groin LAB: VAS DEV / [id number] Closure Sys Perclose Progl 6fr 70465-04 - [id number] Cardiovascular Left: WANG 01/18/2020 [id number] / Implanted: Qty: 1 on 04/15/2018 by Arnaldo Avelar MD Groin LAB: VAS DEV / [id number] Closure Sys Perclose Progl 6fr 16416-33 - [id number] Cardiovascular Right: WANG 11/18/2019 [id number] / Implanted: Qty: 1 on 04/15/2018 by Arnaldo Avelar MD Groin LAB: VAS DEV / [id number] Closure Sys Perclose Progl 6fr 82260-96 - [id number] Cardiovascular Right: WANG 11/18/2019 [id number] / Implanted: Qty: 1 on 04/15/2018 by Arnaldo Avelar MD Groin LAB: VAS DEV / [id number] Endovascular Graft N/A: NEMOPTIC [facility] 02/27/2020 [id number] / Implanted: Qty: 1 on 04/15/2018 by Arnaldo Avelar MD Groin / [id number] Iliac Leg Graft Right: NEMOPTIC [facility] 12/28/2020 [id number] / Implanted: Qty: 1 on 04/15/2018 by [...] 428 ms QTC Calculation(Bazett) 413 ms P Mclean 55 degrees R Mclean -26 degrees T Mclean 48 degrees Sinus bradycardia with 1st degree A-V block with Premature atrial complexes Voltage criteria for left ventricular hypertrophy Inferior infarct , age undetermined Anterolateral infarct , age undetermined Abnormal ECG No previous ECGs available ECG 12-LEAD Routine 04/14/2018 1:13 PM CDT Thoracic aortic Results for this aneurysm without procedure are in the rupture (HCC) results section. after 02/27/2018 Results RHYTHM STRIP - SCAN (01/05/2019 9:21 AM CDT)Only the most recent of2 resultswithin the time period is included. Narrative Performed At VASCULAR DIAGRAM -SCAN (04/21/2018 8:40 AM CDT) Narrative Performed At XR chest 1 view portable / bedside (04/19/2018 9:48 AM CDT)Only the most recent of5 resultswithin the time period is included. Specimen Narrative Performed At FINAL REPORT [facility] Chest one view INDICATION: EVAR COMPARISON: 04/18/2018 [...] MD Report Verified Date/Time:04/19/2018 10:16:05 Reading Location: [facility] Radiology Reading Room Procedure Note Interface, External [...] Report Verified Date/Time: 04/19/2018 10:16:05 Reading [facility] Performing Organization Address [facility] TVmi Phone Number [facility] aPTT (04/19/2018 4:02 AM CDT)Only the most recent of5 resultswithin the time period is included. PTT 36.6 (H) 22.5 - 36.0 seconds [facility] Specimen Blood Performing Organization Address [facility] Hospital[facility] Phone Number [address] [address] CENTER Prothrombin time/INR (04/19/2018 4:02 AM CDT)Only the most recent of6 resultswithin the time period is included. Protime 15.9 (H) 11.7 - 14.7 seconds [facility] INR 1.3 <=5.9 [facility] Specimen Blood Narrative Performed At [facility] RECOMMENDED COUMADIN/WARFARIN INR THERAPY RANGES STANDARD DOSE: 2.0 - 3.0 Includes: PROPHYLAXIS for venous thrombosis, systemic embolization; TREATMENT for venous thrombosis and/or pulmonary embolus. HIGH RISK: Target INR is 2.5-3.5 for patients with mechanical heart valves. Performing Organization Address [facility]/[employer] Phone Number [address] [address] [phone] CENTER CBC (Hemogram only) (04/19/2018 4:02 AM CDT)Only the most recent of4 resultswithin the time period is included. WBC 9.5 3.5 - 10.5 K/L [facility] RBC 3.64 (L) 3.93 - 5.22 M/L [facility] Hemoglobin 10.6 (L) 11.2 - 15.7 GM/DL [facility] Hematocrit 33.8 (L) 34.1 - 44.9 % [facility] MCV 92.9 79.4 - 94.8 fL [facility] MCH 29.1 25.6 - 32.2 pg [facility] MCHC 31.4 (L) 32.2 - 35.5 GM/DL [facility] RDW 14.1 11.7 - 14.4 % [facility] Platelets 232 150 - 450 K/CU MM [facility] MPV 10.9 9.4 - 12.3 fL [facility] nRBC 0 0 - 0 /100 WBC [facility] Specimen Blood Performing Organization Address City/[facility] Phone Number [address] [address] CENTER Phosphorus (04/19/2018 4:02 AM CDT)Only the most recent of5 resultswithin the time period is included. Phosphorus 4.0 2.3 - 4.7 mg/dL [facility] Specimen Blood Performing Organization Address City/[facility]/Zipcode Phone Number [address] [address] CENTER Magnesium (04/19/2018 4:02 AM CDT)Only the most recent of4 resultswithin the time period is included. Magnesium 2.2 1.6 - 2.6 mg/dL [facility] Specimen Blood Performing Organization Address City/[facility]/Zipcode Phone Number [facility] [address] [place] [address] [phone] [facility] Basic Metabolic Panel (04/19/2018 4:02 AM CDT)Only the most recent of5 resultswithin the time period is included. Sodium 141 136 - 145 meq/L [facility] Potassium 3.6 3.5 - 5.1 meq/L [facility] Chloride 106 98 - 107 meq/L [facility] CO2 28 22 - 29 meq/L [facility] BUN 20 7 - 21 mg/dL [facility] Creatinine 0.87 0.57 - 1.25 mg/dL [facility] Glucose 122 (H) 70 - 105 mg/dL [facility] Calcium 9.0 8.4 - 10.2 mg/dL [facility] EGFR 63Comment: ESTIMATED GFR IS mL/min/1.73 sq m [facility] NOT ACCURATE [facility] CLEARANCE IN PREDICTING GLOMERULAR FILTRATION RATE. ESTIMATED GFR IS NOT APPLICABLE FOR DIALYSIS PATIENTS. Specimen Blood Performing Organization Address City/State/Zipcode Phone Number [facility] [address] [place] [address] [facility] TRANSFUSION SERVICE REPORT - SCAN (04/15/2018 5:54 PM CDT) Narrative Performed At XR abdomen / KUB 1 view (04/15/2018 11:46 AM CDT) Specimen Narrative Performed At FINAL REPORT [facility] CLINICAL HISTORY: Postop AAA TECHNIQUE: Supine abdomen COMPARISON: None IMPRESSION: The bowel gas pattern is nonspecific. Free air and air-fluid levels are not seen but cannot be definitively excluded on the supine view. There is vicarious excretion of contrast in the bilateral nephroureteral collecting systems. There is an aortobiiliac stent. Signed: Hardik Godwin MD Report Verified Date/Time:04/15/2018 12:39:57 Reading Location: [facility] Radiology Reading Room Procedure Note Interface, External [...] Report Verified Date/Time: 04/15/2018 12:39:57 Reading Location: [facility] Radiology Reading Room Performing Organization Address City/[facility]/Zipcode Phone Number [facility] Calcium, Ionized (04/15/2018 11:06 AM CDT) Calcium, Ion 1.25 1.12 - 1.27 mmol/L [facility] pH, Blood 7.37 [facility] Specimen Blood Performing Organization Address City/[facility]/Zipcode Phone Number [address] [address] CENTER CBC with platelet count + automated diff (04/15/2018 11:05 AM CDT)Only the most recent of2 resultswithin the time period is included. WBC 12.0 (H) 3.5 - 10.5 K/L [facility] RBC 3.84 (L) 3.93 - 5.22 M/L [facility] Hemoglobin 11.4 11.2 - 15.7 GM/DL [facility] Hematocrit 35.7 34.1 - 44.9 % [facility] MCV 93.0 79.4 - 94.8 fL [facility] MCH 29.7 25.6 - 32.2 pg [facility] MCHC 31.9 (L) 32.2 - 35.5 GM/DL [facility] RDW 14.1 11.7 - 14.4 % [facility] Platelets 207 150 - 450 K/CU MM [facility] MPV 10.7 9.4 - 12.3 fL [facility] nRBC 0 0 - 0 /100 WBC [facility] % Neutros 77 % [facility] % Lymphs 15 % [facility] % Monos 6 % [facility] % Eos 1 % [facility] % Baso 1 % [facility] # Neutros 9.14 (H) 1.56 - 6.13 K/L [facility] # Lymphs 1.78 1.18 - 3.74 K/L [facility] # Monos 0.72 (H) 0.24 - 0.36 K/L [facility] # Eos 0.16 0.04 - 0.36 K/L [facility] # Baso 0.06 0.01 - 0.08 K/L [facility] Immature Granulocytes-Relative 1 0 - 1 % [facility] Specimen Blood Performing Organization Address City/State/Zipcode Phone Number [address] [address] [facility] POC ACTIVATED CLOTTING TIME (04/15/2018 9:02 AM CDT) Activated Clotting Time 257Comment: TESTED AT sec [address] [address] Specimen Blood Performing Organization Address City/[facility] Phone Number [address] [address] SPEER XR chest 2 views (04/14/2018 1:39 PM [...] MD Report Verified Date/Time:04/14/2018 14:12:09 Reading Location: [address] Radiology Reading Room Procedure Note Interface, [...] Report Verified Date/Time: 04/14/2018 14:12:09 Reading Location: [address] Radiology Reading Room Performing Organization Address City/State/Zipcode Phone Number [facility] Urinalysis w/Microscopic (04/14/2018 1:18 PM CDT) Color, UA Yellow [facility] Clarity, UA Clear [facility] Specific [place], UA 1.010 1.001 - 1.035 [facility] pH, UA 6.5 5.0 - 8.0 [facility] Protein, UA 20 mg/dL (A) Negative [facility] Glucose, UA Negative Negative [facility] Ketones, UA Negative Negative [facility] Bilirubin, UA Negative Negative [facility] Blood, UA Negative Negative [facility] Nitrite, UA Negative Negative [facility] Leukocytes, UA Negative Negative [facility] Urobilinogen, UA 0.2 0.2 - 1.0 mg/dL [facility] RBC, UA <1 /HPF [facility] WBC, UA <1 /HPF [facility] Mucus Rare [facility] Squam Epithel, UA <1 /HPF [facility] Hyaline Casts, UA 4 /LPF [facility] Specimen Source [facility] Specimen Urine Performing Organization Address City/[facility] Phone Number [address] [address] CENTER Type and screen, automated (04/14/2018 1:17 PM CDT) ABO/RH AUTOMATED (GAMA) A POSITIVE [facility] Ab Scrn NEGATIVE [facility] Specimen Blood Performing Organization Address City/[facility] Phone Number [address] [address] HIV-1 Antigen with HIV-1/2 Antibody (04/14/2018 1:17 PM CDT) HIV-1 Antigen with HIV 1&2 NON-REACTIVE Nonreactive [facility] Specimen Blood Performing Organization Address City/[facility] Phone Number [address] [address] CENTER Hepatitis B Panel (04/14/2018 1:17 PM CDT) Hep B Core Total Ab NON-REACTIVE Nonreactive [facility] Hep B S Ab 63.1 (H) <8.0 mIU/mL [facility] hepatitis B Surface Ag NON-REACTIVE Nonreactive [facility] Specimen Blood Performing Organization Address City/[facility] Phone Number [address] [address] [phone] CENTER Hepatitis C antibody (04/14/2018 1:17 PM CDT) Hepatitis C Ab NON-REACTIVE Nonreactive [facility] Specimen Blood Performing Organization Address [facility] Phone Number [address] [address] CENTER Reticulocyte count (04/14/2018 1:17 PM CDT) % Retic 1.0 0.5 - 1.7 % [facility] Specimen Blood Performing Organization Address [facility] Phone Number [address] [address] [phone] CENTER Lipase (04/14/2018 1:17 PM CDT) Lipase 10 8 - 78 U/L [facility] Specimen Blood Performing Organization Address [facility] Phone Number [address] [address] [place] Lactate dehydrogenase (LDH) (04/14/2018 1:17 PM CDT) LDH 238 (H) 125 - 220 U/L [facility] Specimen Blood Performing Organization Address [facility] Phone Number [address] [address] [phone] CENTER Amylase (04/14/2018 1:17 PM CDT) Amylase 40 25 - 125 U/L [facility] Specimen Blood Performing Organization Address [facility] Phone Number [address] [address] [phone] [facility] Hepatic function panel (04/14/2018 1:17 PM CDT) Protein, Total 7.1 6.0 - 8.3 gm/dL [facility] Albumin 4.0 3.5 - 5.0 g/dL [facility] Total Bilirubin 0.4 0.2 - 1.2 mg/dL [facility] Bilirubin, Direct 0.2 0.1 - 0.5 mg/dL [facility] Alkaline Phosphatase 135 40 - 150 U/L [facility] AST 22 5 - 34 U/L [facility] ALT 22 6 - 55 U/L [facility] Specimen Blood Performing Organization Address City/State/Zipcode Phone Number [facility] [address] [place] [address] CENTER ECG 12 lead (04/14/2018 1:13 PM CDT) Specimen Narrative Performed At Ventricular Rate 56 BPM GE MUSE Atrial Rate 56 BPM P-R Interval 218 ms QRS Duration 70 ms Q-T Interval 428 ms QTC Calculation(Bazett) 413 ms P Mclean 55 degrees R Mclean -26 degrees T Mclean 48 degrees Sinus bradycardia with 1st degree [...] 428 ms QTC Calculation(Bazett) 413 ms P Mclean 55 degrees R Mclean -26 degrees T Mclean 48 degrees Sinus bradycardia with 1st degree A-V block with Premature atrial complexes Voltage criteria for left ventricular hypertrophy Inferior infarct , age undetermined Anterolateral infarct , age undetermined Abnormal ECG No previous ECGs available Confirmed by MD JOHNSON JOSEPH P ([id number]) on 04/15/2018 5:58:45 AM Performing Organization Address City/State/Zipcode Phone Number MONIE MUSE after 02/27/2018 Insurance Payer Benefit Plan / Group Subscriber ID Type Phone Address MEDICARE MEDICARE A B xxxxxxxxxx Medicare MCR SUPPLEMENT/[employer] xxxxxxxx [facility] Advance Directives For more information, please contact:[address] [phone] Code Status Date Activated Date Inactivated Comments Full Code 04/15/2018 10:55 AM 04/19/2018 6:23 PM This code status was determined by: Patient Full Code 04/15/2018 6:03 AM 04/15/2018 10:55 AM This code status was determined by: Patient
--- OUTSIDE RECORDS SUMMARY | 2019-02-28 12:16 | XMS REPORT ---
:1940 [facility] Organization [facility] Address [address] [place] [address] Care Team Providers Name Role Phone DOMINIC [...] ID: VIEW, NON DEPT EVARShould this be [phone] Chest one view performed at the INDICATION: [...] MDReport Verified Date/Time: 04/19/2018 10:16:05 Reading Location: [facility] Radiology Reading Room PHORUS 2018-04-19 05:21:00 Test Item Value Reference Range Comments PHOSPHORUS (BEAKER) (test soru=296) 4.0 mg/dL 2.3-4.7 [id number] 05:21:00 Test Item Value Reference Range Comments MAGNESIUM (BEAKER) (test mixz=637) 2.2 mg/dL 1.6-2.6 BASIC METABOLIC [id number] 05:21:00 Test Item Value Reference Range Comments SODIUM (BEAKER) (test 141 meq/L 136-145 mlpu=572) POTASSIUM (BEAKER) (test 3.6 meq/L 3.5-5.1 qfhi=344) CHLORIDE (BEAKER) (test 106 meq/L 98-107 nrdt=170) CO2 (BEAKER) (test 28 meq/L 22-29 qyxz=243) BLOOD UREA NITROGEN 20 mg/dL 7-21 (BEAKER) (test uagg=767) CREATININE (BEAKER) (test 0.87 mg/dL 0.57-1.25 fbzz=553) GLUCOSE RANDOM (BEAKER) 122 mg/dL 70-105 (test fflw=270) CALCIUM (BEAKER) (test 9.0 mg/dL 8.4-10.2 xtdp=267) EGFR (BEAKER) (test 63 mL/min/1.73 sq m ESTIMATED GFR IS NOT ewtq=7643) ACCURATE CREATININE CLEARANCE IN PREDICTING GLOMERULAR FILTRATION RATE. ESTIMATED GFR IS NOT APPLICABLE FOR DIALYSIS PATIENTS. [id number] 04:58:00 Test Item Value Reference Range Comments PARTIAL THROMBOPLASTIN TIME (BEAKER) (test 36.6 seconds 22.5-36.0 sriu=265) PROTHROMBIN TIME/[id number] 04:57:00 Test Item Value Reference Range Comments PROTIME (BEAKER) (test iaal=940) 15.9 seconds 11.7-14.7 INR (BEAKER) (test zqgn=350) 1.3 <=5.9 RECOMMENDED COUMADIN/WARFARIN INR THERAPY RANGESSTANDARD DOSE: 2.0 - 3.0 Includes: PROPHYLAXIS forvenous thrombosis, systemic embolization; TREATMENT for venous thrombosis and/or pulmonary embolus.HIGH RISK: Target INR is 2.5-3.5 for patients with mechanical heart valves.CBC (HEMOGRAM ONLY)2018-04-19 04:47:00 Test Item Value Reference Range Comments WHITE BLOOD CELL COUNT (BEAKER) (test gyxd=809) 9.5 K/ L 3.5-10.5 RED BLOOD CELL COUNT (BEAKER) (test fbhu=750) 3.64 M/ L 3.93-5.22 HEMOGLOBIN (BEAKER) (test rmzw=069) 10.6 GM/DL 11.2-15.7 HEMATOCRIT (BEAKER) (test idcu=401) 33.8 % 34.1-44.9 MEAN CORPUSCULAR VOLUME (BEAKER) (test xxve=285) 92.9 fL 79.4-94.8 MEAN CORPUSCULAR HEMOGLOBIN (BEAKER) (test 29.1 pg 25.6-32.2 ihgt=314) MEAN CORPUSCULAR HEMOGLOBIN CONC (BEAKER) (test 31.4 GM/DL 32.2-35.5 rltj=862) RED CELL DISTRIBUTION WIDTH (BEAKER) (test 14.1 % 11.7-14.4 opjm=411) PLATELET COUNT (BEAKER) (test gant=903) 232 K/CU MM 150-450 MEAN PLATELET VOLUME (BEAKER) (test vgtl=049) 10.9 fL 9.4-12.3 NUCLEATED RED BLOOD CELLS (BEAKER) (test 0 /100 WBC 0-0 eapm=562) RAD, CHEST, 1 VIEW, NON [id number] 08:00:00Reason for exam:->S/P EVARShould this be performed [...] MDReport Verified Date/Time: 04/18/2018 08:00:53 Reading Location: [facility] Radiology Reading Room [id number] 05:25:00 Test Item Value Reference Range Comments PHOSPHORUS (BEAKER) (test ntbf=715) 3.6 mg/dL 2.3-4.7 [id number] 05:25:00 Test Item Value Reference Range Comments MAGNESIUM (BEAKER) (test plqk=832) 2.2 mg/dL 1.6-2.6 BASIC METABOLIC [id number] 05:25:00 Test Item Value Reference Range Comments SODIUM (BEAKER) (test 139 meq/L 136-145 xijq=345) POTASSIUM (BEAKER) (test 3.2 meq/L 3.5-5.1 rbro=245) CHLORIDE (BEAKER) (test 103 meq/L 98-107 lpor=209) CO2 (BEAKER) (test 25 meq/L 22-29 ppxu=102) BLOOD UREA NITROGEN 17 mg/dL 7-21 (BEAKER) (test mphg=049) CREATININE (BEAKER) (test 0.86 mg/dL 0.57-1.25 kteg=606) GLUCOSE RANDOM (BEAKER) 150 mg/dL 70-105 (test othm=487) CALCIUM (BEAKER) (test 9.6 mg/dL 8.4-10.2 ecec=252) EGFR (BEAKER) (test 64 mL/min/1.73 sq m ESTIMATED GFR IS NOT wqcn=1472) ACCURATE CREATININE CLEARANCE IN PREDICTING GLOMERULAR FILTRATION RATE. ESTIMATED GFR IS NOT APPLICABLE FOR DIALYSIS PATIENTS. [id number] 05:06:00 Test Item Value Reference Range Comments PARTIAL THROMBOPLASTIN TIME (BEAKER) (test 36.5 seconds 22.5-36.0 dopd=458) PROTHROMBIN TIME/[id number] 05:05:00 Test Item Value Reference Range Comments PROTIME (BEAKER) (test ogid=851) 16.5 seconds 11.7-14.7 INR (BEAKER) (test wbpx=217) 1.3 <=5.9 RECOMMENDED COUMADIN/WARFARIN INR THERAPY RANGESSTANDARD DOSE: 2.0 - 3.0 Includes: PROPHYLAXIS forvenous thrombosis, systemic embolization; TREATMENT for venous thrombosis and/or pulmonary embolus.HIGH RISK: Target INR is 2.5-3.5 for patients with mechanical heart valves.CBC (HEMOGRAM ONLY)2018-04-18 04:52:00 Test Item Value Reference Range Comments WHITE BLOOD CELL COUNT (BEAKER) (test lcuo=507) 11.2 K/ L 3.5-10.5 RED BLOOD CELL COUNT (BEAKER) (test jmum=519) 3.90 M/ L 3.93-5.22 HEMOGLOBIN (BEAKER) (test ezyc=982) 11.3 GM/DL 11.2-15.7 HEMATOCRIT (BEAKER) (test ixhr=465) 35.7 % 34.1-44.9 MEAN CORPUSCULAR VOLUME (BEAKER) (test kvcd=571) 91.5 fL 79.4-94.8 MEAN CORPUSCULAR HEMOGLOBIN (BEAKER) (test 29.0 pg 25.6-32.2 ehji=563) MEAN CORPUSCULAR HEMOGLOBIN CONC (BEAKER) (test 31.7 GM/DL 32.2-35.5 wexl=987) RED CELL DISTRIBUTION WIDTH (BEAKER) (test 14.2 % 11.7-14.4 yzps=175) PLATELET COUNT (BEAKER) (test ljam=608) 208 K/CU MM 150-450 MEAN PLATELET VOLUME (BEAKER) (test pxal=165) 10.6 fL 9.4-12.3 NUCLEATED RED BLOOD CELLS (BEAKER) (test 0 /100 WBC 0-0 aqqh=605) RAD, CHEST, 1 VIEW, NON [id number] 10:31:00Reason for exam:->S/P EVARShould this be performed at the bedside?->YesFINAL REPORT Chest, one view. HISTORY: Status post aortic repair COMPARISON: 2017 IMPRESSION: No significant change. Unchanged tortuosity and ectasia of the thoracic aorta.Mild interstitial edema. No large pleural effusion or pneumothorax. Signed: Gera Hernandez Verified Date/Time: 04/17/2018 10: 31:41 Reading Location: [facility] C013Y CT Body Reading Room [id number] 06: 43:00 Test Item Value Reference Range Comments PHOSPHORUS (BEAKER) (test jjdh=770) 3.3 mg/dL 2.3-4.7 [id number] 06:43:00 Test Item Value Reference Range Comments MAGNESIUM (BEAKER) (test wuqq=828) 2.0 mg/dL 1.6-2.6 [id number] 06:23:00 Test Item Value Reference Range Comments PARTIAL THROMBOPLASTIN TIME (BEAKER) (test 36.4 seconds 22.5-36.0 elez=943) PROTHROMBIN TIME/[id number] 06:22:00 Test Item Value Reference Range Comments PROTIME (BEAKER) (test hipt=654) 17.3 seconds 11.7-14.7 INR (BEAKER) (test vhww=653) 1.4 <=5.9 RECOMMENDED COUMADIN/WARFARIN INR THERAPY RANGESSTANDARD DOSE: 2.0 - 3.0 Includes: PROPHYLAXIS forvenous thrombosis, systemic embolization; TREATMENT for venous thrombosis and/or pulmonary embolus.HIGH RISK: Target INR is 2.5-3.5 for patients with mechanical heart valves.CBC (HEMOGRAM ONLY)2018-04-17 06:13:00 Test Item Value Reference Range Comments WHITE BLOOD CELL COUNT (BEAKER) (test stqi=295) 13.2 K/ L 3.5-10.5 RED BLOOD CELL COUNT (BEAKER) (test vzmt=819) 3.84 M/ L 3.93-5.22 HEMOGLOBIN (BEAKER) (test tkss=814) 11.5 GM/DL 11.2-15.7 HEMATOCRIT (BEAKER) (test ezqc=577) 34.9 % 34.1-44.9 MEAN CORPUSCULAR VOLUME (BEAKER) (test ytcp=221) 90.9 fL 79.4-94.8 MEAN CORPUSCULAR HEMOGLOBIN (BEAKER) (test 29.9 pg 25.6-32.2 euix=218) MEAN CORPUSCULAR HEMOGLOBIN CONC (BEAKER) (test 33.0 GM/DL 32.2-35.5 xaqh=701) RED CELL DISTRIBUTION WIDTH (BEAKER) (test 14.0 % 11.7-14.4 htei=065) PLATELET COUNT (BEAKER) (test tdye=067) 201 K/CU MM 150-450 MEAN PLATELET VOLUME (BEAKER) (test wwiw=557) 10.6 fL 9.4-12.3 NUCLEATED RED BLOOD CELLS (BEAKER) (test 0 /100 WBC 0-0 vavy=842) RAD, CHEST, 1 VIEW, NON [id number] 09:02:00Reason for exam:->S/P EVARShould this be performed [...] Hernandezeport Verified Date/Time: 04/16/2018 09:02:11 Reading Location: [facility] [address] Body Reading Room [id number] 06:11:00 Test Item Value Reference Range Comments PHOSPHORUS (BEAKER) (test vvdc=694) 1.9 mg/dL 2.3-4.7 [id number] 06:11:00 Test Item Value Reference Range Comments MAGNESIUM (BEAKER) (test khxn=452) 2.0 mg/dL 1.6-2.6 BASIC METABOLIC [id number] 06:11:00 Test Item Value Reference Range Comments SODIUM (BEAKER) (test 137 meq/L 136-145 zqaw=210) POTASSIUM (BEAKER) (test 3.2 meq/L 3.5-5.1 boaq=729) CHLORIDE (BEAKER) (test 104 meq/L 98-107 lcds=647) CO2 (BEAKER) (test 24 meq/L 22-29 fllf=331) BLOOD UREA NITROGEN 7 mg/dL 7-21 (BEAKER) (test btip=600) CREATININE (BEAKER) (test 0.86 mg/dL 0.57-1.25 jczh=907) GLUCOSE RANDOM (BEAKER) 179 mg/dL 70-105 (test wsck=979) CALCIUM (BEAKER) (test 9.0 mg/dL 8.4-10.2 tomi=174) EGFR (BEAKER) (test 64 mL/min/1.73 sq m ESTIMATED GFR IS NOT stld=2371) ACCURATE CREATININE CLEARANCE IN PREDICTING GLOMERULAR FILTRATION RATE. ESTIMATED GFR IS NOT APPLICABLE FOR DIALYSIS PATIENTS. [id number] 05:46:00 Test Item Value Reference Range Comments PARTIAL THROMBOPLASTIN TIME (BEAKER) (test 32.0 seconds 22.5-36.0 riek=844) PROTHROMBIN TIME/[id number] 05:45:00 Test Item Value Reference Range Comments PROTIME (BEAKER) (test skva=738) 15.0 seconds 11.7-14.7 INR (BEAKER) (test gzyb=186) 1.2 <=5.9 RECOMMENDED COUMADIN/WARFARIN INR THERAPY RANGESSTANDARD DOSE: 2.0 - 3.0 Includes: PROPHYLAXIS forvenous thrombosis, systemic embolization; TREATMENT for venous thrombosis and/or pulmonary embolus.HIGH RISK: Target INR is 2.5-3.5 for patients with mechanical heart valves.CBC (HEMOGRAM ONLY)2018-04-16 05:31:00 Test Item Value Reference Range Comments WHITE BLOOD CELL COUNT (BEAKER) (test ynkv=265) 12.0 K/ L 3.5-10.5 RED BLOOD CELL COUNT (BEAKER) (test musm=578) 4.19 M/ L 3.93-5.22 HEMOGLOBIN (BEAKER) (test gywl=782) 12.4 GM/DL 11.2-15.7 HEMATOCRIT (BEAKER) (test oapg=315) 38.6 % 34.1-44.9 MEAN CORPUSCULAR VOLUME (BEAKER) (test zkbd=545) 92.1 fL 79.4-94.8 MEAN CORPUSCULAR HEMOGLOBIN (BEAKER) (test 29.6 pg 25.6-32.2 ijcj=618) MEAN CORPUSCULAR HEMOGLOBIN CONC (BEAKER) (test 32.1 GM/DL 32.2-35.5 swpn=809) RED CELL DISTRIBUTION WIDTH (BEAKER) (test 14.0 % 11.7-14.4 gcth=205) PLATELET COUNT (BEAKER) (test jjlx=654) 223 K/CU MM 150-450 MEAN PLATELET VOLUME (BEAKER) (test mjbl=341) 10.3 fL 9.4-12.3 NUCLEATED RED BLOOD CELLS (BEAKER) (test 0 /100 WBC 0-0 bmhm=806) [id number] 13:56:00 Test Item Value Reference Range Comments ACTIVATED CLOTTING TIME [address] [facility] [address] (BEAKER) (test oxuk=329) [place] [address] RAD, ABDOMEN/KUB, 1 VIEW [id number] 12:39:00Reason for exam:->Postop AAAFINAL REPORT CLINICAL HISTORY: [...] GodwinMDReport Verified Date/Time: 2017 12:39:57 Reading Location: [facility] Radiology Reading Room RAD, CHEST , 1 VIEW, NON [id number] 12:38:00For chest painReason for exam:->post opShould this be performed at the bedside?->YesFINAL REPORT CLINICAL HISTORY: post op TECHNIQUE: 1 view of the chest. COMPARISON: 04/10/2018 IMPRESSION: There are no focal infiltrates or effusions. Cardiomegaly is again seen with tortuosity of the thoracic aorta. Signed: Hardik Godwin MDReport Verified Date/Time: 04/15/201812:38:40 Reading Location: [facility] Radiology Reading Room [id number] 11:51:00 Test Item Value Reference Range Comments PHOSPHORUS (BEAKER) (test htet=740) 3.2 mg/dL 2.3-4.7 BASIC METABOLIC [id number] 11:51:00 Test Item Value Reference Range Comments SODIUM (BEAKER) (test 140 meq/L 136-145 huxn=683) POTASSIUM (BEAKER) (test 3.8 meq/L 3.5-5.1 nfmo=275) CHLORIDE (BEAKER) (test 109 meq/L 98-107 wzzw=634) CO2 (BEAKER) (test 24 meq/L 22-29 csrd=559) BLOOD UREA NITROGEN 12 mg/dL 7-21 (BEAKER) (test duuh=914) CREATININE (BEAKER) (test 0.77 mg/dL 0.57-1.25 puhp=071) GLUCOSE RANDOM (BEAKER) 176 mg/dL 70-105 (test dfmm=859) CALCIUM (BEAKER) (test 9.7 mg/dL 8.4-10.2 ieji=740) EGFR (BEAKER) (test 73 mL/min/1.73 sq m ESTIMATED GFR IS NOT movn=4302) ACCURATE CREATININE CLEARANCE IN PREDICTING GLOMERULAR FILTRATION RATE. ESTIMATED GFR IS NOT APPLICABLE FOR DIALYSIS PATIENTS. CBC W/PLT COUNT & AUTO [id number] 11:23:00 Test Item Value Reference Range Comments WHITE BLOOD CELL COUNT (BEAKER) (test xwhr=093) 12.0 K/ L 3.5-10.5 RED BLOOD CELL COUNT (BEAKER) (test vfgw=266) 3.84 M/ L 3.93-5.22 HEMOGLOBIN (BEAKER) (test hvww=447) 11.4 GM/DL 11.2-15.7 HEMATOCRIT (BEAKER) (test tnlk=076) 35.7 % 34.1-44.9 MEAN CORPUSCULAR VOLUME (BEAKER) (test fjak=181) 93.0 fL 79.4-94.8 MEAN CORPUSCULAR HEMOGLOBIN (BEAKER) (test 29.7 pg 25.6-32.2 gfjn=731) MEAN CORPUSCULAR HEMOGLOBIN CONC (BEAKER) (test 31.9 GM/DL 32.2-35.5 oxvr=360) RED CELL DISTRIBUTION WIDTH (BEAKER) (test 14.1 % 11.7-14.4 qujz=413) PLATELET COUNT (BEAKER) (test jsgd=907) 207 K/CU MM 150-450 MEAN PLATELET VOLUME (BEAKER) (test fcrz=114) 10.7 fL 9.4-12.3 NUCLEATED RED BLOOD CELLS (BEAKER) (test 0 /100 WBC 0-0 nsdr=596) NEUTROPHILS RELATIVE PERCENT (BEAKER) (test 77 % hiqc=324) LYMPHOCYTES RELATIVE PERCENT (BEAKER) (test 15 % eqvv=410) MONOCYTES RELATIVE PERCENT (BEAKER) (test 6 % lukw=670) EOSINOPHILS RELATIVE PERCENT (BEAKER) (test 1 % gksc=210) BASOPHILS RELATIVE PERCENT (BEAKER) (test 1 % hlxn=811) NEUTROPHILS ABSOLUTE COUNT (BEAKER) (test 9.14 K/ L 1.56-6.13 awrs=492) LYMPHOCYTES ABSOLUTE COUNT (BEAKER) (test 1.78 K/ L 1.18-3.74 hzmh=437) MONOCYTES ABSOLUTE COUNT (BEAKER) (test 0.72 K/ L 0.24-0.36 cxfk=733) EOSINOPHILS ABSOLUTE COUNT (BEAKER) (test 0.16 K/ L 0.04-0.36 bocb=540) BASOPHILS ABSOLUTE COUNT (BEAKER) (test 0.06 K/ L 0.01-0.08 sddl=028) IMMATURE GRANULOCYTES-RELATIVE PERCENT (BEAKER) 1 % 0-1 (test qkjn=9512) PROTHROMBIN [id number] 11:22:00 Test Item Value Reference Range Comments PROTIME (BEAKER) (test ptsb=115) 15.7 seconds 11.7-14.7 INR (BEAKER) (test eeat=633) 1.3 <=5.9 RECOMMENDED COUMADIN/WARFARIN INR THERAPY RANGESSTANDARD DOSE: 2.0 - 3.0 Includes: PROPHYLAXIS forvenous thrombosis, systemic embolization; TREATMENT for venous thrombosis and/or pulmonary embolus.HIGH RISK: Target INR is 2.5-3.5 for patients with mechanical heart valves.CALCIUM, [id number] 11:06:00 Test Item Value Reference Range Comments CALCIUM IONIZED (BEAKER) (test vgdv=630) 1.25 mmol/L 1.12-1.27 PH, BLOOD (BEAKER) (test tskg=6792) 7.37 HEPATITIS C [id number] 15:18:00 Test Item Value Reference Range Comments HEPATITIS C ANTIBODY (BEAKER) (test ajpv=126) Nonreactive Nonreactive HEPATITIS B [id number] 15:18:00 Test Item Value Reference Range Comments HEPATITIS B CORE TOTAL ANTIBODY (BEAKER) (test Nonreactive Nonreactive nxls=465) HEPATITIS B SURFACE ANTIBODY (BEAKER) (test 63.1 mIU/mL <8.0 orjo=204) HEPATITIS B SURFACE ANTIGEN (2) (BEAKER) (test Nonreactive Nonreactive koop=8885) HIV-1 ANTIGEN WITH HIV-1/2 [id number] 15:18:00 Test Item Value Reference Range Comments HIV-1 ANTIGEN WITH HIV 1\T\2 ANTIBODY (2) Nonreactive Nonreactive (BEAKER) (test tsgo=6256) [id number] 15:08:00 Test Item Value Reference Range Comments LIPASE (BEAKER) (test iumt=109) 10 U/L 8-78 [id number] 15:08:00 Test Item Value Reference Range Comments AMYLASE (BEAKER) (test twgq=049) 40 U/L 25-125 BASIC METABOLIC [id number] 15:08:00 Test Item Value Reference Range Comments SODIUM (BEAKER) (test 141 meq/L 136-145 ajly=609) POTASSIUM (BEAKER) (test 3.6 meq/L 3.5-5.1 frqd=290) CHLORIDE (BEAKER) (test 104 meq/L 98-107 qwvz=533) CO2 (BEAKER) (test 27 meq/L 22-29 sjmw=690) BLOOD UREA NITROGEN 12 mg/dL 7-21 (BEAKER) (test gcly=158) CREATININE (BEAKER) (test 0.86 mg/dL 0.57-1.25 ovpx=134) GLUCOSE RANDOM (BEAKER) 112 mg/dL 70-105 (test tkqw=637) CALCIUM (BEAKER) (test 9.8 mg/dL 8.4-10.2 vddk=479) EGFR (BEAKER) (test 64 mL/min/1.73 sq m ESTIMATED GFR IS NOT nxmo=7875) ACCURATE CREATININE CLEARANCE IN PREDICTING GLOMERULAR FILTRATION RATE. ESTIMATED GFR IS NOT APPLICABLE FOR DIALYSIS PATIENTS. HEPATIC FUNCTION [id number] 15:08:00 Test Item Value Reference Range Comments TOTAL PROTEIN (BEAKER) (test wvdu=890) 7.1 gm/dL 6.0-8.3 ALBUMIN (BEAKER) (test iycx=0932) 4.0 g/dL 3.5-5.0 BILIRUBIN TOTAL (BEAKER) (test foya=655) 0.4 mg/dL 0.2-1.2 BILIRUBIN DIRECT (BEAKER) (test rpso=296) 0.2 mg/dL 0.1-0.5 ALKALINE PHOSPHATASE (BEAKER) (test caog=226) 135 U/L 40-150 AST (SGOT) (BEAKER) (test vtad=476) 22 U/L 5-34 ALT (SGPT) (BEAKER) (test nnpj=062) 22 U/L 6-55 LACTATE DEHYDROGENASE (LDH)2018-04-14 15:08:00 Test Item Value Reference Range Comments LACTATE DEHYDROGENASE (BEAKER) (test xlus=972) 238 U/L 125-220 [id number] 14:47:00 Test Item Value Reference Range Comments PARTIAL THROMBOPLASTIN TIME (BEAKER) (test 31.9 seconds 22.5-36.0 mlzw=136) PROTHROMBIN [id number] 14:46:00 Test Item Value Reference Range Comments PROTIME (BEAKER) (test aena=269) 14.1 seconds 11.7-14.7 INR (BEAKER) (test vxra=699) 1.1 <=5.9 RECOMMENDED COUMADIN/WARFARIN INR THERAPY RANGESSTANDARD DOSE: 2.0 - 3.0 Includes: PROPHYLAXIS forvenous thrombosis, systemic embolization; TREATMENT for venous thrombosis and/or pulmonary embolus.HIGH RISK: Target INR is 2.5-3.5 for patients with mechanical heart valves.RETICULOCYTE [id number] 14:36:00 Test Item Value Reference Range Comments RETICULOCYTE COUNT PCT (BEAKER) (test wsvg=027) 1.0 % 0.5-1.7 CBC W/PLT COUNT & AUTO [id number] 14:36:00 Test Item Value Reference Range Comments WHITE BLOOD CELL COUNT (BEAKER) (test ktiy=418) 9.3 K/ L 3.5-10.5 RED BLOOD CELL COUNT (BEAKER) (test fdni=529) 4.05 M/ L 3.93-5.22 HEMOGLOBIN (BEAKER) (test uiav=880) 12.2 GM/DL 11.2-15.7 HEMATOCRIT (BEAKER) (test oktg=316) 37.2 % 34.1-44.9 MEAN CORPUSCULAR VOLUME (BEAKER) (test tokb=338) 91.9 fL 79.4-94.8 MEAN CORPUSCULAR HEMOGLOBIN (BEAKER) (test 30.1 pg 25.6-32.2 muhb=598) MEAN CORPUSCULAR HEMOGLOBIN CONC (BEAKER) (test 32.8 GM/DL 32.2-35.5 iaxb=078) RED CELL DISTRIBUTION WIDTH (BEAKER) (test 14.2 % 11.7-14.4 pfap=841) PLATELET COUNT (BEAKER) (test lzff=073) 259 K/CU MM 150-450 MEAN PLATELET VOLUME (BEAKER) (test rfpg=729) 11.1 fL 9.4-12.3 NUCLEATED RED BLOOD CELLS (BEAKER) (test 0 /100 WBC 0-0 syvc=582) NEUTROPHILS RELATIVE PERCENT (BEAKER) (test 70 % uczm=196) LYMPHOCYTES RELATIVE PERCENT (BEAKER) (test 19 % dudo=195) MONOCYTES RELATIVE PERCENT (BEAKER) (test 8 % ticn=313) EOSINOPHILS RELATIVE PERCENT (BEAKER) (test 2 % zxug=834) BASOPHILS RELATIVE PERCENT (BEAKER) (test 1 % qlpg=630) NEUTROPHILS ABSOLUTE COUNT (BEAKER) (test 6.49 K/ L 1.56-6.13 kamq=056) LYMPHOCYTES ABSOLUTE COUNT (BEAKER) (test 1.74 K/ L 1.18-3.74 zqgt=221) MONOCYTES ABSOLUTE COUNT (BEAKER) (test 0.78 K/ L 0.24-0.36 ijgu=910) EOSINOPHILS ABSOLUTE COUNT (BEAKER) (test 0.14 K/ L 0.04-0.36 pbec=388) BASOPHILS ABSOLUTE COUNT (BEAKER) (test 0.07 K/ L 0.01-0.08 urmf=014) IMMATURE GRANULOCYTES-RELATIVE PERCENT (BEAKER) 0 % 0-1 (test vqoz=5680) URINALYSIS W/ [id number] 14:25:00 Test Item Value Reference Range Comments COLOR (BEAKER) (test rdim=186) Yellow CLARITY (BEAKER) (test wnoi=920) Clear SPECIFIC GRAVITY UA (BEAKER) (test shrz=123) 1.010 1.001-1.035 PH UA (BEAKER) (test xdgg=273) 6.5 5.0-8.0 PROTEIN UA (BEAKER) (test nffi=389) 20 mg/dL Negative GLUCOSE UA (BEAKER) (test plzi=367) Negative Negative KETONES UA (BEAKER) (test emqq=177) Negative Negative BILIRUBIN UA (BEAKER) (test bjlf=321) Negative Negative BLOOD UA (BEAKER) (test pdiu=349) Negative Negative NITRITE UA (BEAKER) (test lxlt=944) Negative Negative LEUKOCYTE ESTERASE UA (BEAKER) (test htzh=978) Negative Negative UROBILINOGEN UA (BEAKER) (test levn=426) 0.2 mg/dL 0.2-1.0 RBC UA (BEAKER) (test merx=892) < /HPF WBC UA (BEAKER) (test cyrb=042) < /HPF MUCUS (BEAKER) (test zvkq=5277) Rare SQUAMOUS EPITHELIAL (BEAKER) (test ufcd=492) < /HPF HYALINE CASTS (BEAKER) (test jdtz=643) 4 /LPF SOURCE(BEAKER) (test tnqm=5579) RAD, CHEST, 2 [id number] 14:12:00Reason for exam:->surgeryFINAL REPORT Chest, two views HISTORY: Surgery COMPARISON: None. DISCUSSION: Lungs are clear without focal consolidation. Cardiomediastinal silhouette is unremarkable. Tortuosityand ectasia of the thoracic aorta. No acute osseous abnormality. No pleural effusion or pneumothorax. Visualized portions of the upper abdomen are unremarkable. IMPRESSION: No acute cardiopulmonary abnormality. Signed: Gera Hernandez MDReport Verified Date/Time: 04/14/2018 14:12:09 Reading Location: [address] Radiology Reading Room 02:12 PM
[2019-02-28 12:29] VITALS: BMI 19.5
[2019-02-28] MEDS ORDERED: ONDANSETRON 4 MG/2 ML VIAL IV PRN (12:49)
[2019-02-28] MEDS: NA CHLORIDE 0.9% 1,000 ML IV SCH ×2 (13:27→21:12)
[2019-02-28] MEDS ORDERED: PNEUMOCOCCAL VACCINE 0.5 ML IMVAC ONE (14:00)
[2019-02-28 14:21] LABS: Absolute Lymphocytes (CBC) 0.8 K/uL (0.7-4.9); Absolute Monocytes 1.1 K/uL (0.1-1.3); Absolute Neutrophil 11.8 K/uL (1.8-8.0); Basophils % 0.4 % (0-1.3); Eosinophils % 0.2 % (0-4.4); Hematocrit 28.2 % (36.0-45.0); Lymphocytes % 5.5 % (15.3-44.8); Monocytes % 7.7 % (3.3-12.3); RBC Red Blood Cell Count 3.72 M/uL (3.86-4.86)
[2019-02-28 14:23] LABS: Potassium 4.2 mmol/L (3.5-5.1); Uric Acid 3.5 mg/dL (2.6-6.0)
[2019-02-28 19:06] LABS: Urine Appearance CLEAR; Urine Bilirubin NEGATIVE (NEG); Urine Blood NEGATIVE (NEG); Urine Color YELLOW; Urine Glucose NEGATIVE (NEG); Urine Protein 1+ (NEG); Urine Urobilinogen 0.2 mg/dL (0.2-1.0); Urine pH 7.5 (5.0-7.0)
[2019-02-28 19:09] LABS: Urine Microscopic Reflex ORDER UMIC
[2019-02-28 19:18] LABS: Urine Amorphous Sediment TRACE /HPF (NONE SEEN); Urine Bacteria <20 /HPF (<20); Urine Culture Reflex Order NOT NEEDED; Urine RBC NONE SEEN /HPF (NONE SEEN)
[2019-02-28 20:44] LABS: Anisocytosis 2+; Blood Morphology Comment NOTED (NOT SEEN); Platelet Estimate ADEQ; Urine White Blood Cell Casts OK
[2019-02-28] MEDS: MORPHINE 2 MG/ML SYR IV PRN (21:14)
[2019-03-01] MEDS: NA CHLORIDE 0.9% 1,000 ML IV SCH ×4 (01:00→21:48)
[2019-03-01] MEDS: SODIUM CHLORIDE 0.9% 10ML INJ IV SCH ×2 (08:38→08:55)
[2019-03-01] MEDS: PARoxetine HCl 10 MG TAB PO SCH (08:38)
[2019-03-01] MEDS: PANTOPRAZOLE 40 MG INJ IV SCH (08:55)
[2019-03-01] MEDS ORDERED: PROPOFOL 200 MG/20 ML VIAL IV ONE (11:56)
[2019-03-01] MEDS ORDERED: LIDOCAINE 1% MPF 2 ML AMPULE ONE (11:56)
[2019-03-01] MEDS ORDERED: DEXAMETHASONE 10 MG/ML VIAL IV ONE ×2 (16:12→17:00)
--- NOTE | 2019-03-01 16:25 | RAD REPORT ---
EXAM DESCRIPTION: CT - CT ANGIO ABD/PELVIS W CONTRAST - 03/01/2019 2:57 pm CLINICAL HISTORY: Abdominal pain, aneurysm COMPARISON: CT study January 28, 2019 ; CT study January 05, 2019 TECHNIQUE: Dynamically enhanced 3 mm thick images of the abdomen, and pelvis were obtained during ad ministration of approximately 150mL Isovue 370 IV contrast. Sagittal and coronal reconstruction image s were generated using maximum intensity projection protocol and reviewed. Exam utilizes a protocol t o evaluate entire course of the aorta. All CT scans are performed using dose optimization technique as appropriate and may include automated exposure control or mA/KV adjustment according to patient size. FINDINGS: Partially imaged and tortuous distal thoracic aorta is 3.5 cm in transverse diameter. At he celiac artery level aorta measures 3.3 cm AP x 3.9 cm TR. Endovascular aortoiliac stent graft is i n place. At the level of the renal vasculature graft fills the [place] aorta which measures 3.1 cm x 2 .7 cm in long and short axis dimension. Infrarenal [place] aorta is dilated to 4.8 x 4.2 cm. The lumen is not opacified. All contrast traverses through the stent graft. No endoleak identified. No stenosis of the celiac artery. 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 Both renal arteries enhance. There does appear to be narrowing greater than 50% at the or igin of the left renal artery. No stenosis of the distal common iliac or external iliac arteries. Multiple benign liver cysts are present. Liver, spleen and pancreas show no acute findings. No gallbl adder or biliary tree abnormality. Patient has a minimal hiatal hernia. No acute colon finding. There is large amount of stool distending the rectum. No evidence for bowel ischemia. The December examinatio n showed evidence for mass near the anus. A large amount of stool volume currently present obscures t his region. No urinary bladder abnormality. No free air, free fluid or inflammatory stranding. No acute bone find ing. IMPRESSION: Aortoiliac stent graft is in place within the dilated [place] aorta. Stent graft enhances normally. No endoleak. The stenosis is evident at the origin of the left renal artery ; however, this does not result in any CT evidence for asymmetric or diminished perfusion to the left kidney. Large stool volume distends the rectum. A posterior wall rectal mass near the anus was suspected on t he December CT study. The large stool volume currently present obscures this region. No evidence for bowel ischemia. No other significant findings on chest, abdomen and upper pelvis examination.
[2019-03-01] MEDS ORDERED: CLINDAMYCIN INJ 900 MG in NA CHLORIDE 0.9% 50 ML IV SCH (17:00)
[2019-03-01] MEDS: ALPRAZOLAM 0.25 MG TABLET PO PRN (21:40)
[2019-03-02] MEDS ORDERED: DEXAMETHASONE 4 MG/ML VIAL IV ONE (04:00)
[2019-03-02] MEDS: NA CHLORIDE 0.9% 1,000 ML IV SCH ×3 (04:22→22:06)
[2019-03-02 06:41] LABS: Absolute Lymphocytes (CBC) 0.5 K/uL (0.7-4.9); Absolute Monocytes 0.3 K/uL (0.1-1.3); Absolute Neutrophil 10.1 K/uL (1.8-8.0); Basophils % 0.5 % (0-1.3); Hematocrit 28.8 % (36.0-45.0); Lymphocytes % 4.9 % (15.3-44.8); MPV 7.7 fL (7.6-11.3); Monocytes % 3.1 % (3.3-12.3); RBC Red Blood Cell Count 3.77 M/uL (3.86-4.86)
[2019-03-02 06:57] LABS: Potassium 4.1 mmol/L (3.5-5.1)
[2019-03-02 07:19] LABS: Blood Morphology Comment NOT SEEN (NOT SEEN); Platelet Estimate ADEQ; Urine White Blood Cell Casts OK
[2019-03-02] MEDS: PARoxetine HCl 10 MG TAB PO SCH (08:33)
[2019-03-02] MEDS: PANTOPRAZOLE 40 MG INJ IV SCH (08:33)
[2019-03-02] MEDS: SODIUM CHLORIDE 0.9% 10ML INJ IV SCH (08:33)
--- NOTE | 2019-03-02 12:23 | P.PN ---
Subjective Date of Service: 03/02/19 Chief Complaint: SHEA/LUQ pain, FLORENCIA Subjective: Improving (Hand swelling / erythema improved on left hand at thenar eminence. No abdominal pain / bleeding noted.) Review of Systems 10-point ROS is otherwise unremarkable General: Weakness (Improved. ) Physical Examination - Vital Signs Temperature: 96.5 F Blood Pressure: 177/85 Pulse: 61 Respirations: 20 Pulse Ox (%): 97 - Physical Exam General: Alert, In no apparent distress, Oriented x3, Cooperative HEENT: Atraumatic, Normocephalic, PERRLA, EOMI Neck: Supple Respiratory: Normal air movement Cardiovascular: Normal pulses Gastrointestinal: Soft and benign, No tenderness, No rebound, No guarding Neurological: Normal speech, Normal strength at 5/5 x4 extr - Studies Laboratory Data (last 24 hrs) 03/02/19 06:24: Sodium 140, Potassium 4.1, BUN 11, Creatinine 0.70, Glucose 225 H 03/02/19 06:24: WBC 11.0 H D, Hgb 9.2 L, Hct 28.8 L, Plt Count 334 Microbiology Data (last 24 hrs): 02/28/19 18:53 Clean Catch Urine Cutler Count - Final <10,000 CFU/ML. 02/28/19 18:53 Clean Catch Urine - Final MIXED MARTITA. Assessment And Plan - Current Problems (Diagnosis) (1) Epigastric abdominal pain Current Visit: Yes Status: Acute (2) Anemia, iron deficiency Current Visit: Yes Status: Acute (3) Nausea & vomiting Onset Date: 10/17/15 Current Visit: No Status: Acute (4) Gastritis Current Visit: Yes Status: Acute - Plan REC: 1) await pathology from EGD 2) continue PPI therapy 3) continue antibiotics 4) GI clinic f/u in 1-2 weeks
--- NOTE | 2019-03-02 16:56 | PN ---
Date of Progress Note: 03/01/2019 Subjective: The patient says she does not feel right yet. She still complains of some shoulder pain on the left, difficulty bearing weight on the left foot, and noticed some increased erythema in the left wrist area, which was thought to be cellulitis on the last admission. However due to the marked ly elevated CRP, it was felt that may be an autoimmune scenario and steroids were utilized without th e antibiotics to see what will happen. She underwent an EGD, which showed significant inflammatory c onditions, otherwise negative and her CT scan, which showed multiple liver cysts. No other clinical significance, however, some other findings related to her AAA and her colon. Repea t lab work will be done as well as a bone scan, which has been scheduled. Depending on the results, she may require the services of her market development trainer. HR/MODL Voice ID: [id number] Report ID: [id number]
[2019-03-02] MEDS: DEXAMETHASONE 4 MG TAB PO SCH ×2 (18:00→19:55)
--- NOTE | 2019-03-02 18:45 | RAD REPORT ---
EXAM DESCRIPTION: RAD - Lumbar Spine 3 Views - 03/02/2019 6:37 pm CLINICAL HISTORY: dr bishop Radiculopathy COMPARISON: Lumbar Spine 3 Views dated 10/19/2018 FINDINGS: Vertebral body heights appear maintained. No compression fracture noted. Minimal disc thin linda is seen at L1-2 and L2-3. No spondylolysis or spondylolisthesis. Aortoiliac stent grafting is noted. IMPRESSION: Minimal upper lumbar spondylosis.
[2019-03-02 19:00] LABS: Rheumatoid Factor NEG (NEG)
[2019-03-02] MEDS: ALPRAZOLAM 0.25 MG TABLET PO PRN (22:07)
--- NOTE | 2019-03-02 23:33 | PN ---
Date of Progress Note: 03/02/2019 The patient states she has had marked improvement since the IV steroids last night and this is shown to be clinically so. The other things that she notices that she cannot bear weight on her foot and s houlder, and that area is uncomfortable. However, the marked fatigue is still present. She underwen t some physical therapy briefly and then felt fatigued enough to go back to bed. Incontinence has be en an issue over the past 3 or 4 days as well; I am not sure of the etiology; her urine was negative. We will get an x-ray of her LS spine. Continue her Decadron at 4 mg q.12 till we figure out a reas onable prednisone dose, which I have to be monitored rather closely as her EGD did show some gastriti s. I feel whether the patient had a sedimentation rate over 140 and CRP over 200, has difficulty wit h mobilization, was risky for falls and more likely thing is an acute onset of rheumatoid arthritis b e unwise, sent her home in her present condition. The placement in the SNF was considered to be a re asonable alternative and depending on the next day or so, clinical and physical results, we will make that decision. HR/MODL Voice ID: [id number] Report ID: [id number]
[2019-03-03] MEDS: MORPHINE 2 MG/ML SYR IV PRN (04:14)
[2019-03-03] MEDS: NA CHLORIDE 0.9% 1,000 ML IV SCH (06:00)
[2019-03-03] MEDS: ALPRAZOLAM 0.25 MG TABLET PO PRN ×2 (06:05→21:15)
[2019-03-03 06:06] LABS: Absolute Lymphocytes (CBC) 0.7 K/uL (0.7-4.9); Absolute Monocytes 0.3 K/uL (0.1-1.3); Absolute Neutrophil 12.8 K/uL (1.8-8.0); Basophils % 0.3 % (0-1.3); Hematocrit 27.8 % (36.0-45.0); Lymphocytes % 4.9 % (15.3-44.8); MPV 8.1 fL (7.6-11.3); Monocytes % 2.3 % (3.3-12.3); RBC Red Blood Cell Count 3.61 M/uL (3.86-4.86)
[2019-03-03] MEDS: DEXAMETHASONE 4 MG TAB PO SCH ×2 (08:46→21:15)
[2019-03-03] MEDS: PANTOPRAZOLE 40 MG INJ IV SCH (08:46)
[2019-03-03] MEDS: PARoxetine HCl 10 MG TAB PO SCH (08:46)
[2019-03-03] MEDS: SODIUM CHLORIDE 0.9% 10ML INJ IV SCH (08:46)
[2019-03-03] MEDS ORDERED: cloNIDine HCl 0.1 MG TAB PO PRN (15:23)
--- NOTE | 2019-03-03 20:17 | P.PN ---
Subjective Date of Service: 03/03/19 Chief Complaint: SHEA/LUQ pain, FLORENCIA Subjective: Improving (Feels better. Left thumb thenar eminence near normal with much less erythema / edema. She wants increase in diet to help buffer her po medications. EGD pathology c/w esophagitis / gastritis / duodenitis & no HP. ) Review of Systems 10-point ROS is otherwise unremarkable General: Weakness (Improved.) Physical Examination - Vital Signs Temperature: 99.3 F Blood Pressure: 154/72 Pulse: 93 Respirations: 18 Pulse Ox (%): 96 - Physical Exam General: Alert, In no apparent distress, Oriented x3, Cooperative HEENT: Atraumatic, Normocephalic, PERRLA, EOMI Neck: Supple Respiratory: Normal air movement Cardiovascular: Normal pulses Gastrointestinal: Soft and benign, No tenderness, No rebound, No guarding Neurological: Normal speech, Normal strength at 5/5 x4 extr - Studies Laboratory Data (last 24 hrs) 03/03/19 05:15: WBC 13.8 H D, Hgb 8.9 L, Hct 27.8 L, Plt Count 322 Assessment And Plan - Current Problems (Diagnosis) (1) Epigastric abdominal pain Current Visit: Yes Status: Acute Comment: Resolved. (2) Anemia, iron deficiency Current Visit: Yes Status: Acute (3) Nausea & vomiting Onset Date: 10/17/15 Current Visit: No Status: Acute Comment: None now. (4) Gastritis Current Visit: Yes Status: Acute - Plan REC: 1) advance diet to GI soft and then heart healthy 2) continue PPI therapy 3) continue antibiotics 4) GI clinic f/u in 1-2 weeks
[2019-03-04] MEDS: PARoxetine HCl 10 MG TAB PO SCH (08:33)
[2019-03-04] MEDS: DEXAMETHASONE 4 MG TAB PO SCH (08:33)
[2019-03-04] MEDS: PANTOPRAZOLE 40 MG INJ IV SCH (08:34)
[2019-03-04] MEDS: SODIUM CHLORIDE 0.9% 10ML INJ IV SCH (08:35)
[2019-03-04 09:39] VITALS: TEMP 97.8
[2019-03-04 10:26] VITALS: O2SAT 98
[2019-03-04] MEDS ORDERED: PNEUMOCOCCAL VACCINE 0.5 ML IMVAC ONE (14:00)
[2019-03-04 14:23] VITALS: BP 160/80
--- NOTE | 2019-03-04 14:26 | P.PN ---
Subjective Date of Service: 03/04/19 Chief Complaint: SHEA/LUQ pain, FLORENCIA Subjective: Improving (Feels good. Tolerating po diet. Going home today.) Review of Systems 10-point ROS is otherwise unremarkable General: Weakness (Improved. ) Physical Examination - Vital Signs Temperature: 97.8 F Blood Pressure: 160/80 Pulse: 68 Respirations: 18 Pulse Ox (%): 98 - Physical Exam General: Alert, In no apparent distress, Oriented x3, Cooperative HEENT: Atraumatic, Normocephalic, PERRLA, EOMI Neck: Supple Respiratory: Diminished Cardiovascular: Normal pulses Gastrointestinal: Soft and benign (No SHEA pain, mild LLQ/RLQ tenderness. ), No tenderness, No rebound, No guarding Neurological: Normal speech, Normal strength at 5/5 x4 extr Assessment And Plan - Current Problems (Diagnosis) (1) Epigastric abdominal pain Status: Acute Comment: Resolved. (2) Anemia, iron deficiency Status: Acute (3) Nausea & vomiting Onset Date: 10/17/15 Status: Acute Comment: None now. (4) Gastritis Status: Acute - Plan REC: 1) advance diet to heart healthy 2) continue PPI therapy 3) continue antibiotics 4) GI clinic f/u in 1-2 weeks
--- NOTE | 2019-03-04 16:44 | PN ---
Date of Progress Note: 03/03/2019 Subjective: The patient still complains of multiple joint pain; however, she is considerably better. She can now bear weight. Her physical therapy is improving somewhat. Shoulder still uncomfortable , slight erythema to this area and at the thumb. Other than a repeat sedimentation rate it was still over 140. Further immunological tests are not available at this time. Disposition will be made aft er discussion as far as eligibility for a SNF and/or home health. Family situation is that she will have somebody present over the weekend and feels she is still a high risk for falls. Would not want her alone at this time. HR/MODL Voice ID: [id number] Report ID: [id number]
--- NOTE | 2019-03-04 16:59 | PN ---
Date of Progress Note: 03/04/2019 Subjective: Patient has marked improvement since yesterday. She has been up. Walking has improved. Her balance has improved. Mental status has improved. Still has slight irritation of the metacarpal joint on the left. Some muscle spasm of the shoulder. However, she continues to do weightbearing w ith her son present at home. I feel it is now safe to discharge her home and set up home health for PT and also note that the incontinence has improved markedly although has some urgency. She is advis ed to get a bedside commode. She will be discharged on her usual medication plus the addition of pre dnisone 10 mg b.i.d. to decrease to 10 mg daily if her joints continue to improve. Her blood sugar h as also elevated. Patient has been on metformin in the past. She was instructed to add it again if her blood sugars remain at 200. HR/MODL Voice ID: [id number] Report ID: [id number]
== END 2019-03-04 14:11 | disposition home or self-care (01) ==
LOC: 4TH 12:11 → 2ND 03-03 18:00
PROVIDERS: ADMIT Family Medicine; ATTEND Family Medicine
PROC: 0DB88ZX Excision of Small Intestine, Via Natural or Artificial Opening Endoscopic, Diagnostic (ICD-10-PCS; 2019-03-01)
PROC: 0DB68ZX Excision of Stomach, Via Natural or Artificial Opening Endoscopic, Diagnostic (ICD-10-PCS; 2019-03-01)
PROC: 0DB58ZX Excision of Esophagus, Via Natural or Artificial Opening Endoscopic, Diagnostic (ICD-10-PCS; 2019-03-01)
PROC: 0DB98ZX Excision of Duodenum, Via Natural or Artificial Opening Endoscopic, Diagnostic (ICD-10-PCS; principal; 2019-03-01 11:00)
DX: K29.80 Duodenitis without bleeding (principal); K29.50 Unspecified chronic gastritis without bleeding; K21.0 Gastro-esophageal reflux disease with esophagitis; K44.9 Diaphragmatic hernia without obstruction or gangrene; D50.9 Iron deficiency anemia, unspecified; K31.89 Other diseases of stomach and duodenum; M47.816 Spondylosis without myelopathy or radiculopathy, lumbar region; M62.838 Other muscle spasm; Z91.81 History of falling; I71.4 Abdominal aortic aneurysm, without rupture; K76.89 Other specified diseases of liver; I10 Essential (primary) hypertension; Z86.73 Personal history of transient ischemic attack (TIA), and cerebral infarction without residual deficits; Z87.892 Personal history of anaphylaxis
CPT/HCPCS: 43239; 87088; 85025 ×3; 87086; 80048 ×2; 36415 ×3; 88312; 88313; 86430; 82962 ×6; 84550; 83605 ×2; 88305; 85652 ×2; 83036; 86038; 86812; 86140; 72100; 74174; 97116; 97163; 97530; Q9967; J2704; C9113 ×4; J1100; J2270 ×2; J2001; J7030 ×9; G0379; G0378; 78306; 81003; 81015; A9537; J2805

== ENCOUNTER 2019-03-27 14:19 | Observation (INO) | payer OTHER ==
--- OUTSIDE RECORDS SUMMARY | 2019-03-27 15:01 | XMS REPORT | Clinical Summary ---
:1940 Author Organization [facility] Address [address] [place] [address] Care Team Providers Name Role Phone Wally Soliman MD Primary Care Provider Raymundo Miller Unavailable Allergies Active Allergy Reactions Severity Noted Date Comments Hydrocodone-Acetaminophen Other (See Comments) 04/13/2018 hyperactivity Lisinopril 04/13/2018 angioedema Butorphanol Tartrate Other (See Comments) 04/14/2018 Hallucinations Fthemvc-Djl-Ciq Reductase Other (See Comments) 04/14/2018 Flu like [...] aneurysm without rupture (HCC) (Primary Dx) after 03/26/2018 Social History Tobacco Use Types Packs/Day Years [...] Not on file Implants Implanted Type Area Manager Maintenance Device Shelf Model / Identifier Expiration Serial / Date Lot Zbigniew Iliac Aaa Leg 13x90 [id number] - [id number] CV Aneurysm Right: COOK:AORTIC 10/13/2020 [id number] / Implanted: Qty: 1 on 04/15/2018 by Arnaldo Avelar MD Groin INTERVENTION / [id number] Closure Sys Perclose Progl 6fr 30122-51 - [id number] Cardiovascular Left: WANG 11/18/2019 [id number] / Implanted: Qty: 1 on 04/15/2018 by Arnaldo Avelar MD Groin LAB: VAS DEV / [id number] Closure Sys Perclose Progl 6fr 49295-06 - [id number] Cardiovascular Left: WANG 01/18/2020 [id number] / Implanted: Qty: 1 on 04/15/2018 by Arnaldo Avelar MD Groin LAB: VASC DEV / [id number] Closure Sys Perclose Progl 6fr 67815-53 - [id number] Cardiovascular Right: WANG 11/18/2019 [id number] / Implanted: Qty: 1 on 04/15/2018 by Arnaldo Avelar MD Groin LAB: VAS DEV / [id number] Closure Sys Perclose Progl 6fr 75576-30 - [id number] Cardiovascular Right: WANG 11/18/2019 [id number] / Implanted: Qty: 1 on 04/15/2018 by Arnaldo Avelar MD Groin LAB: VASC DEV / [id number] Aaa Endovascular Graft N/A: [employer] 02/27/2020 [id number] / Implanted: Qty: 1 on 04/15/2018 by Arnaldo Avelar MD Groin / [id number] Aaa Iliac Leg Graft Right: fg microtec [facility] 12/28/2020 [id number] / Implanted: Qty: 1 on 04/15/2018 by [...] 428 ms QTC Calculation(Bazett) 413 ms P Esmont 55 degrees R Esmont -26 degrees T [place]sm[place] 48 degrees Sinus bradycardia with 1st degree A-V block with Premature atrial complexes Voltage criteria for left ventricular hypertrophy Inferior infarct , age undetermined Anterolateral infarct , age undetermined Abnormal ECG No previous ECGs available ECG 12-LEAD Routine 04/14/2018 1:13 PM CDT Thoracic aortic Results for this aneurysm without procedure are in the rupture (HCC) results section. after 03/26/2018 Results RHYTHM STRIP - SCAN (01/05/2019 9:21 AM CDT)Only the most recent of2 resultswithin the time period is included. Narrative Performed At VASCULAR DIAGRAM -SCAN (04/21/2018 8:40 AM CDT) Narrative Performed At XR chest 1 view portable / bedside (04/19/2018 9:48 AM CDT)Only the most recent of5 resultswithin the time period is included. Specimen Narrative Performed At FINAL REPORT [facility] Chest one view INDICATION: EVAR COMPARISON: 04/18/2018 [...] MD Report Verified Date/Time:04/19/2018 10:16:05 Reading Location: [facility] Radiology Reading Room Procedure Note Interface, [...] Report Verified Date/Time: 04/19/2018 10:16:05 Reading Location: [facility] Radiology Reading Room Performing Organization Address [facility] Hospital[facility]ri Phone Number [facility] aPTT (04/19/2018 4:02 AM CDT)Only the most recent of5 resultswithin the time period is included. PTT 36.6 (H) 22.5 - 36.0 seconds [facility] Specimen Blood Performing Organization Address [facility] Hospital[facility] Phone Number [address] [address] CENTER Prothrombin time/INR (04/19/2018 4:02 AM CDT)Only the most recent of6 resultswithin the time period is included. Protime 15.9 (H) 11.7 - 14.7 seconds [facility] INR 1.3 <=5.9 [facility] Specimen Blood Narrative Performed At [facility] RECOMMENDED COUMADIN/WARFARIN INR THERAPY RANGES STANDARD DOSE: 2.0 - 3.0 Includes: PROPHYLAXIS for venous thrombosis, systemic embolization; TREATMENT for venous thrombosis and/or pulmonary embolus. HIGH RISK: Target INR is 2.5-3.5 for patients with mechanical heart valves. Performing Organization Address [facility]/[employer] Phone Number [address] [address] [phone] [place] CBC (Hemogram only) (04/19/2018 4:02 AM CDT)Only the most recent of4 resultswithin the time period is included. WBC 9.5 3.5 - 10.5 K/L [facility] RBC 3.64 (L) 3.93 - 5.22 M/L [facility] Hemoglobin 10.6 (L) 11.2 - 15.7 GM/DL [facility] Hematocrit 33.8 (L) 34.1 - 44.9 % [facility] MCV 92.9 79.4 - 94.8 fL [facility] MCH 29.1 25.6 - 32.2 pg [facility] MCHC 31.4 (L) 32.2 - 35.5 GM/DL [facility] RDW 14.1 11.7 - 14.4 % [facility] Platelets 232 150 - 450 K/CU MM [facility] MPV 10.9 9.4 - 12.3 fL [facility] nRBC 0 0 - 0 /100 WBC [facility] Specimen Blood Performing Organization Address City/[facility] Hospitalcode Phone Number [address] [address] [phone] CENTER Phosphorus (04/19/2018 4:02 AM CDT)Only the most recent of5 resultswithin the time period is included. Phosphorus 4.0 2.3 - 4.7 mg/dL [facility] Specimen Blood Performing Organization Address City/[facility]/Zipcode Phone Number [address] [address] CENTER Magnesium (04/19/2018 4:02 AM CDT)Only the most recent of4 resultswithin the time period is included. Magnesium 2.2 1.6 - 2.6 mg/dL [facility] Specimen Blood Performing Organization Address City/[facility]/Zipcode Phone Number [facility] [address] [place] [address] [place] Basic Metabolic Panel (04/19/2018 4:02 AM CDT)Only the most recent of5 resultswithin the time period is included. Sodium 141 136 - 145 meq/L [facility] Potassium 3.6 3.5 - 5.1 meq/L [facility] Chloride 106 98 - 107 meq/L [facility] CO2 28 22 - 29 meq/L [facility] BUN 20 7 - 21 mg/dL [facility] Creatinine 0.87 0.57 - 1.25 mg/dL [facility] Glucose 122 (H) 70 - 105 mg/dL [facility] Calcium 9.0 8.4 - 10.2 mg/dL [facility] EGFR 63Comment: ESTIMATED GFR IS mL/min/1.73 sq m [facility] NOT ACCURATE CREATININE [facility] CENTER CLEARANCE IN PREDICTING GLOMERULAR FILTRATION RATE. ESTIMATED GFR IS NOT APPLICABLE FOR DIALYSIS PATIENTS. Specimen Blood Performing Organization Address City/State/Zipcode Phone Number [facility] [address] [place] [address] [phone] [place] TRANSFUSION SERVICE REPORT - SCAN (04/15/2018 5:54 PM CDT) Narrative Performed At XR abdomen / KUB 1 view (04/15/2018 11:46 AM CDT) Specimen Narrative Performed At FINAL REPORT [employer] CLINICAL HISTORY: Postop AAA TECHNIQUE: Supine abdomen COMPARISON: None IMPRESSION: The bowel gas pattern is nonspecific. Free air and air-fluid levels are not seen but cannot be definitively excluded on the supine view. There is vicarious excretion of contrast in the bilateral nephroureteral collecting systems. There is an aortobiiliac stent. Signed: Hardik Godwin MD Report Verified Date/Time:04/15/2018 12:39:57 Reading Location: [facility] Radiology Reading Room Procedure Note Interface, [...] Report Verified Date/Time: 04/15/2018 12:39:57 Reading Location: [facility] Radiology Reading Room Performing Organization Address City/[facility]/Zipcode Phone Number [facility] Calcium, Ionized (04/15/2018 11:06 AM CDT) Calcium, Ion 1.25 1.12 - 1.27 mmol/L [facility] pH, Blood 7.37 [facility] Specimen Blood Performing Organization Address City/[facility]/[place] [address] [phone] CENTER CBC with platelet count + automated diff (04/15/2018 11:05 AM CDT)Only the most recent of2 resultswithin the time period is included. WBC 12.0 (H) 3.5 - 10.5 K/L [facility] RBC 3.84 (L) 3.93 - 5.22 M/L [facility] Hemoglobin 11.4 11.2 - 15.7 GM/DL [facility] Hematocrit 35.7 34.1 - 44.9 % [facility] MCV 93.0 79.4 - 94.8 fL [facility] MCH 29.7 25.6 - 32.2 pg [facility] MCHC 31.9 (L) 32.2 - 35.5 GM/DL [facility] RDW 14.1 11.7 - 14.4 % [facility] Platelets 207 150 - 450 K/CU MM [facility] MPV 10.7 9.4 - 12.3 fL [facility] nRBC 0 0 - 0 /100 WBC [facility] % Neutros 77 % [facility] % Lymphs 15 % [facility] % Monos 6 % [facility] % Eos 1 % [facility] % Baso 1 % [facility] # Neutros 9.14 (H) 1.56 - 6.13 K/L [facility] # Lymphs 1.78 1.18 - 3.74 K/L [facility] # Monos 0.72 (H) 0.24 - 0.36 K/L [facility] # Eos 0.16 0.04 - 0.36 K/L [facility] # Baso 0.06 0.01 - 0.08 K/L [facility] Immature Granulocytes-Relative 1 0 - 1 % [facility] Specimen Blood Performing Organization Address City/State/Zipcode Phone Number [address] [address] [place] POC ACTIVATED CLOTTING TIME (04/15/2018 9:02 AM CDT) Activated Clotting Time 257Comment: TESTED AT sec [address] [id number] Specimen Blood Performing Organization Address City/[facility]/Zipcode Phone Number [address] [address] [place] XR chest 2 views (04/14/2018 1:39 PM [...] MD Report Verified Date/Time:04/14/2018 14:12:09 Reading Location: [address] Radiology Reading Room Procedure Note Interface, [...] Report Verified Date/Time: 04/14/2018 14:12:09 Reading Location: [address] Radiology Reading Room Performing Organization Address City/State/Zipcode Phone Number [facility] Urinalysis w/Microscopic (04/14/2018 1:18 PM CDT) Color, UA Yellow [facility] Clarity, UA Clear [facility] Specific [place], UA 1.010 1.001 - 1.035 [facility] pH, UA 6.5 5.0 - 8.0 [facility] Protein, UA 20 mg/dL (A) Negative [facility] Glucose, UA Negative Negative [facility] Ketones, UA Negative Negative [facility] Bilirubin, UA Negative Negative [facility] Blood, UA Negative Negative [facility] Nitrite, UA Negative Negative [facility] Leukocytes, UA Negative Negative [facility] Urobilinogen, UA 0.2 0.2 - 1.0 mg/dL [facility] RBC, UA <1 /HPF [facility] WBC, UA <1 /HPF [facility] Mucus Rare [facility] Squam Epithel, UA <1 /HPF [facility] Hyaline Casts, UA 4 /LPF [facility] Specimen Source [facility] Specimen Urine Performing Organization Address City/[facility] Phone Number [address] [address] CENTER Type and screen, automated (04/14/2018 1:17 PM CDT) ABO/RH AUTOMATED (GAMA) A POSITIVE [facility] Ab Scrn NEGATIVE [facility] Specimen Blood Performing Organization Address City/[facility] Phone Number [address] [address] HIV-1 Antigen with HIV-1/2 Antibody (04/14/2018 1:17 PM CDT) HIV-1 Antigen with HIV 1&2 Nonreactive Nonreactive [facility] Specimen Blood Performing Organization Address City/[facility] Phone Number [address] [address] CENTER Hepatitis B Panel (04/14/2018 1:17 PM CDT) Hep B Core Total Ab Nonreactive Nonreactive [facility] Hep B S Ab 63.1 (H) <8.0 mIU/mL [facility] hepatitis B Surface Ag Nonreactive Nonreactive [facility] Specimen Blood Performing Organization Address City/[facility] Phone Number [address] [address] [phone] CENTER Hepatitis C antibody (04/14/2018 1:17 PM CDT) Hepatitis C Ab Nonreactive Nonreactive [facility] Specimen Blood Performing Organization Address City/[facility] Phone Number [address] [address] [place] Reticulocyte count (04/14/2018 1:17 PM CDT) % Retic 1.0 0.5 - 1.7 % [facility] Specimen Blood Performing Organization Address [facility] Phone Number [address] [address] [phone] [place] Lipase (04/14/2018 1:17 PM CDT) Lipase 10 8 - 78 U/L [facility] Specimen Blood Performing Organization Address City/[facility] Phone Number [address] [address] [place] Lactate dehydrogenase (LDH) (04/14/2018 1:17 PM CDT) LDH 238 (H) 125 - 220 U/L [facility] Specimen Blood Performing Organization Address [facility] Phone Number [address] [address] CENTER Amylase (04/14/2018 1:17 PM CDT) Amylase 40 25 - 125 U/L [facility] Specimen Blood Performing Organization Address [facility] Phone Number [address] [address] [place] Hepatic function panel (04/14/2018 1:17 PM CDT) Protein, Total 7.1 6.0 - 8.3 gm/dL [facility] Albumin 4.0 3.5 - 5.0 g/dL [facility] Total Bilirubin 0.4 0.2 - 1.2 mg/dL [facility] Bilirubin, Direct 0.2 0.1 - 0.5 mg/dL [facility] Alkaline Phosphatase 135 40 - 150 U/L [facility] AST 22 5 - 34 U/L [facility] ALT 22 6 - 55 U/L [facility] Specimen Blood Performing Organization Address City/State/Zipcode Phone Number [facility] [address] [place] [address] CENTER ECG 12 lead (04/14/2018 1:13 PM CDT) Specimen Narrative Performed At Ventricular Rate 56 BPM GE MUSE Atrial Rate 56 BPM P-R Interval 218 ms QRS Duration 70 ms Q-T Interval 428 ms QTC Calculation(Bazett) 413 ms P Esmont 55 degrees R Esmont -26 degrees T [place] 48 degrees Sinus bradycardia with 1st degree [...] 428 ms QTC Calculation(Bazett) 413 ms P [place] 55 degrees R Esmont -26 degrees T [place] 48 degrees Sinus bradycardia with 1st degree A-V block with Premature atrial complexes Voltage criteria for left ventricular hypertrophy Inferior infarct , age undetermined Anterolateral infarct , age undetermined Abnormal ECG No previous ECGs available Confirmed by MD JOHNSON JOSEPH P ([id number]) on 04/15/2018 5:58:45 AM Performing Organization Address City/State/Zipcode Phone Number MONIE MUSE after 03/26/2018 Insurance Payer Benefit Plan / Group Subscriber ID Type Phone Address MEDICARE MEDICARE A B xxxxxxxxxx Medicare MCR SUPPLEMENT/[employer]IV[employer] xxxxxxxx [facility] Advance Directives For more information, please contact:[place] [address] [place], [place] [phone] Code Status Date Activated Date Inactivated Comments Full Code 04/15/2018 10:55 AM 04/19/2018 6:23 PM This code status was determined by: Patient Full Code 04/15/2018 6:03 AM 04/15/2018 10:55 AM This code status was determined by: Patient
--- OUTSIDE RECORDS SUMMARY | 2019-03-27 15:02 | XMS REPORT ---
:1940 [facility] [address] [place] [address] Care Team Providers Name Role Phone DOMINIC [...] ID: VIEW, NON DEPT EVARShould this be [phone] Chest one view performed at the INDICATION: [...] MDReport Verified Date/Time: 04/19/2018 10:16:05 Reading Location: [facility] Radiology Reading Room PHORUS 2018-04-19 05:21:00 Test Item Value Reference Range Comments PHOSPHORUS (BEAKER) (test kaiq=213) 4.0 mg/dL 2.3-4.7 [id number] 05:21:00 Test Item Value Reference Range Comments MAGNESIUM (BEAKER) (test pfpm=145) 2.2 mg/dL 1.6-2.6 BASIC METABOLIC [id number] 05:21:00 Test Item Value Reference Range Comments SODIUM (BEAKER) (test 141 meq/L 136-145 xikg=650) POTASSIUM (BEAKER) (test 3.6 meq/L 3.5-5.1 tsaj=217) CHLORIDE (BEAKER) (test 106 meq/L 98-107 sovq=676) CO2 (BEAKER) (test 28 meq/L 22-29 fenu=649) BLOOD UREA NITROGEN 20 mg/dL 7-21 (BEAKER) (test ozcq=062) CREATININE (BEAKER) (test 0.87 mg/dL 0.57-1.25 mykm=359) GLUCOSE RANDOM (BEAKER) 122 mg/dL 70-105 (test ijri=805) CALCIUM (BEAKER) (test 9.0 mg/dL 8.4-10.2 ifjy=221) EGFR (BEAKER) (test 63 mL/min/1.73 sq m ESTIMATED GFR IS NOT slmf=8581) ACCURATE CREATININE CLEARANCE IN PREDICTING GLOMERULAR FILTRATION RATE. ESTIMATED GFR IS NOT APPLICABLE FOR DIALYSIS PATIENTS. [id number] 04:58:00 Test Item Value Reference Range Comments PARTIAL THROMBOPLASTIN TIME (BEAKER) (test 36.6 seconds 22.5-36.0 tady=863) PROTHROMBIN TIME/[id number] 04:57:00 Test Item Value Reference Range Comments PROTIME (BEAKER) (test isai=656) 15.9 seconds 11.7-14.7 INR (BEAKER) (test gsuf=593) 1.3 <=5.9 RECOMMENDED COUMADIN/WARFARIN INR THERAPY RANGESSTANDARD DOSE: 2.0 - 3.0 Includes: PROPHYLAXIS forvenous thrombosis, systemic embolization; TREATMENT for venous thrombosis and/or pulmonary embolus.HIGH RISK: Target INR is 2.5-3.5 for patients with mechanical heart valves.CBC (HEMOGRAM ONLY)2018-04-19 04:47:00 Test Item Value Reference Range Comments WHITE BLOOD CELL COUNT (BEAKER) (test rycs=712) 9.5 K/ L 3.5-10.5 RED BLOOD CELL COUNT (BEAKER) (test bqfr=718) 3.64 M/ L 3.93-5.22 HEMOGLOBIN (BEAKER) (test ocer=630) 10.6 GM/DL 11.2-15.7 HEMATOCRIT (BEAKER) (test jbzt=754) 33.8 % 34.1-44.9 MEAN CORPUSCULAR VOLUME (BEAKER) (test dzdo=278) 92.9 fL 79.4-94.8 MEAN CORPUSCULAR HEMOGLOBIN (BEAKER) (test 29.1 pg 25.6-32.2 nkjy=538) MEAN CORPUSCULAR HEMOGLOBIN CONC (BEAKER) (test 31.4 GM/DL 32.2-35.5 ucat=736) RED CELL DISTRIBUTION WIDTH (BEAKER) (test 14.1 % 11.7-14.4 mqmz=227) PLATELET COUNT (BEAKER) (test djnx=446) 232 K/CU MM 150-450 MEAN PLATELET VOLUME (BEAKER) (test opde=260) 10.9 fL 9.4-12.3 NUCLEATED RED BLOOD CELLS (BEAKER) (test 0 /100 WBC 0-0 deao=729) RAD, CHEST, 1 VIEW, NON [id number] 08:00:00Reason for exam:->S/P EVARShould this be performed [...] MDReport Verified Date/Time: 04/18/2018 08:00:53 Reading Location: [facility] Reading Room [id number] 05:25:00 Test Item Value Reference Range Comments PHOSPHORUS (BEAKER) (test diim=984) 3.6 mg/dL 2.3-4.7 [id number] 05:25:00 Test Item Value Reference Range Comments MAGNESIUM (BEAKER) (test hofa=382) 2.2 mg/dL 1.6-2.6 BASIC METABOLIC [id number] 05:25:00 Test Item Value Reference Range Comments SODIUM (BEAKER) (test 139 meq/L 136-145 hjla=674) POTASSIUM (BEAKER) (test 3.2 meq/L 3.5-5.1 kktu=405) CHLORIDE (BEAKER) (test 103 meq/L 98-107 stuj=994) CO2 (BEAKER) (test 25 meq/L 22-29 yvpf=039) BLOOD UREA NITROGEN 17 mg/dL 7-21 (BEAKER) (test zaqj=143) CREATININE (BEAKER) (test 0.86 mg/dL 0.57-1.25 ukuz=164) GLUCOSE RANDOM (BEAKER) 150 mg/dL 70-105 (test rwje=164) CALCIUM (BEAKER) (test 9.6 mg/dL 8.4-10.2 xold=019) EGFR (BEAKER) (test 64 mL/min/1.73 sq m ESTIMATED GFR IS NOT pkru=3044) ACCURATE CREATININE CLEARANCE IN PREDICTING GLOMERULAR FILTRATION RATE. ESTIMATED GFR IS NOT APPLICABLE FOR DIALYSIS PATIENTS. [id number] 05:06:00 Test Item Value Reference Range Comments PARTIAL THROMBOPLASTIN TIME (BEAKER) (test 36.5 seconds 22.5-36.0 yvve=214) PROTHROMBIN TIME/[id number] 05:05:00 Test Item Value Reference Range Comments PROTIME (BEAKER) (test lrni=782) 16.5 seconds 11.7-14.7 INR (BEAKER) (test duyg=997) 1.3 <=5.9 RECOMMENDED COUMADIN/WARFARIN INR THERAPY RANGESSTANDARD DOSE: 2.0 - 3.0 Includes: PROPHYLAXIS forvenous thrombosis, systemic embolization; TREATMENT for venous thrombosis and/or pulmonary embolus.HIGH RISK: Target INR is 2.5-3.5 for patients with mechanical heart valves.CBC (HEMOGRAM ONLY)2018-04-18 04:52:00 Test Item Value Reference Range Comments WHITE BLOOD CELL COUNT (BEAKER) (test axaz=109) 11.2 K/ L 3.5-10.5 RED BLOOD CELL COUNT (BEAKER) (test shlm=509) 3.90 M/ L 3.93-5.22 HEMOGLOBIN (BEAKER) (test wwhk=186) 11.3 GM/DL 11.2-15.7 HEMATOCRIT (BEAKER) (test pgkh=713) 35.7 % 34.1-44.9 MEAN CORPUSCULAR VOLUME (BEAKER) (test fnqp=490) 91.5 fL 79.4-94.8 MEAN CORPUSCULAR HEMOGLOBIN (BEAKER) (test 29.0 pg 25.6-32.2 hxoh=234) MEAN CORPUSCULAR HEMOGLOBIN CONC (BEAKER) (test 31.7 GM/DL 32.2-35.5 yadl=267) RED CELL DISTRIBUTION WIDTH (BEAKER) (test 14.2 % 11.7-14.4 bpsn=281) PLATELET COUNT (BEAKER) (test bwsy=209) 208 K/CU MM 150-450 MEAN PLATELET VOLUME (BEAKER) (test crvh=105) 10.6 fL 9.4-12.3 NUCLEATED RED BLOOD CELLS (BEAKER) (test 0 /100 WBC 0-0 ezxf=048) RAD, CHEST, 1 VIEW, NON [id number] 10:31:00Reason for exam:->S/P EVARShould this be performed at the bedside?->YesFINAL REPORT Chest, one view. HISTORY: Status post aortic repair COMPARISON: 2017 IMPRESSION: No significant change. Unchanged tortuosity and ectasia of the thoracic aorta.Mild interstitial edema. No large pleural effusion or pneumothorax. Signed: Gera Hernandez Verified Date/Time: 04/17/2018 10: 31:41 Reading Location: [facility] C013Y CT Body Reading Room [id number] 06: 43:00 Test Item Value Reference Range Comments PHOSPHORUS (BEAKER) (test oaul=297) 3.3 mg/dL 2.3-4.7 [id number] 06:43:00 Test Item Value Reference Range Comments MAGNESIUM (BEAKER) (test hcyc=315) 2.0 mg/dL 1.6-2.6 [id number] 06:23:00 Test Item Value Reference Range Comments PARTIAL THROMBOPLASTIN TIME (BEAKER) (test 36.4 seconds 22.5-36.0 jxpn=662) PROTHROMBIN TIME/[id number] 06:22:00 Test Item Value Reference Range Comments PROTIME (BEAKER) (test rjkc=565) 17.3 seconds 11.7-14.7 INR (BEAKER) (test oudv=949) 1.4 <=5.9 RECOMMENDED COUMADIN/WARFARIN INR THERAPY RANGESSTANDARD DOSE: 2.0 - 3.0 Includes: PROPHYLAXIS forvenous thrombosis, systemic embolization; TREATMENT for venous thrombosis and/or pulmonary embolus.HIGH RISK: Target INR is 2.5-3.5 for patients with mechanical heart valves.CBC (HEMOGRAM ONLY)2018-04-17 06:13:00 Test Item Value Reference Range Comments WHITE BLOOD CELL COUNT (BEAKER) (test dgfl=844) 13.2 K/ L 3.5-10.5 RED BLOOD CELL COUNT (BEAKER) (test nnox=916) 3.84 M/ L 3.93-5.22 HEMOGLOBIN (BEAKER) (test npag=481) 11.5 GM/DL 11.2-15.7 HEMATOCRIT (BEAKER) (test zinq=064) 34.9 % 34.1-44.9 MEAN CORPUSCULAR VOLUME (BEAKER) (test lgxz=579) 90.9 fL 79.4-94.8 MEAN CORPUSCULAR HEMOGLOBIN (BEAKER) (test 29.9 pg 25.6-32.2 zjte=345) MEAN CORPUSCULAR HEMOGLOBIN CONC (BEAKER) (test 33.0 GM/DL 32.2-35.5 fiif=058) RED CELL DISTRIBUTION WIDTH (BEAKER) (test 14.0 % 11.7-14.4 dbla=378) PLATELET COUNT (BEAKER) (test cqho=605) 201 K/CU MM 150-450 MEAN PLATELET VOLUME (BEAKER) (test whxs=426) 10.6 fL 9.4-12.3 NUCLEATED RED BLOOD CELLS (BEAKER) (test 0 /100 WBC 0-0 qgcf=917) RAD, CHEST, 1 VIEW, NON [id number] 09:02:00Reason for exam:->S/P EVARShould this be performed [...] Hernandezeport Verified Date/Time: 04/16/2018 09:02:11 Reading Location: [facility] B1 C013Y CT Body Reading Room [id number] 06:11:00 Test Item Value Reference Range Comments PHOSPHORUS (BEAKER) (test zhnb=535) 1.9 mg/dL 2.3-4.7 [id number] 06:11:00 Test Item Value Reference Range Comments MAGNESIUM (BEAKER) (test cbwc=838) 2.0 mg/dL 1.6-2.6 BASIC METABOLIC [id number] 06:11:00 Test Item Value Reference Range Comments SODIUM (BEAKER) (test 137 meq/L 136-145 bdtj=014) POTASSIUM (BEAKER) (test 3.2 meq/L 3.5-5.1 evfc=063) CHLORIDE (BEAKER) (test 104 meq/L 98-107 ivxq=342) CO2 (BEAKER) (test 24 meq/L 22-29 lkgw=007) BLOOD UREA NITROGEN 7 mg/dL 7-21 (BEAKER) (test punx=764) CREATININE (BEAKER) (test 0.86 mg/dL 0.57-1.25 ymqv=971) GLUCOSE RANDOM (BEAKER) 179 mg/dL 70-105 (test xlzw=118) CALCIUM (BEAKER) (test 9.0 mg/dL 8.4-10.2 onle=763) EGFR (BEAKER) (test 64 mL/min/1.73 sq m ESTIMATED GFR IS NOT jjni=1408) ACCURATE CREATININE CLEARANCE IN PREDICTING GLOMERULAR FILTRATION RATE. ESTIMATED GFR IS NOT APPLICABLE FOR DIALYSIS PATIENTS. [id number] 05:46:00 Test Item Value Reference Range Comments PARTIAL THROMBOPLASTIN TIME (BEAKER) (test 32.0 seconds 22.5-36.0 dtso=763) PROTHROMBIN TIME/[id number] 05:45:00 Test Item Value Reference Range Comments PROTIME (BEAKER) (test cfqm=120) 15.0 seconds 11.7-14.7 INR (BEAKER) (test swgn=378) 1.2 <=5.9 RECOMMENDED COUMADIN/WARFARIN INR THERAPY RANGESSTANDARD DOSE: 2.0 - 3.0 Includes: PROPHYLAXIS forvenous thrombosis, systemic embolization; TREATMENT for venous thrombosis and/or pulmonary embolus.HIGH RISK: Target INR is 2.5-3.5 for patients with mechanical heart valves.CBC (HEMOGRAM ONLY)2018-04-16 05:31:00 Test Item Value Reference Range Comments WHITE BLOOD CELL COUNT (BEAKER) (test ywhu=530) 12.0 K/ L 3.5-10.5 RED BLOOD CELL COUNT (BEAKER) (test hugh=708) 4.19 M/ L 3.93-5.22 HEMOGLOBIN (BEAKER) (test ifgz=607) 12.4 GM/DL 11.2-15.7 HEMATOCRIT (BEAKER) (test qxqu=381) 38.6 % 34.1-44.9 MEAN CORPUSCULAR VOLUME (BEAKER) (test kwbh=650) 92.1 fL 79.4-94.8 MEAN CORPUSCULAR HEMOGLOBIN (BEAKER) (test 29.6 pg 25.6-32.2 wlko=142) MEAN CORPUSCULAR HEMOGLOBIN CONC (BEAKER) (test 32.1 GM/DL 32.2-35.5 mnrs=932) RED CELL DISTRIBUTION WIDTH (BEAKER) (test 14.0 % 11.7-14.4 wgrg=668) PLATELET COUNT (BEAKER) (test dkkz=669) 223 K/CU MM 150-450 MEAN PLATELET VOLUME (BEAKER) (test kmoa=486) 10.3 fL 9.4-12.3 NUCLEATED RED BLOOD CELLS (BEAKER) (test 0 /100 WBC 0-0 iidc=828) [id number] 13:56:00 Test Item Value Reference Range Comments ACTIVATED CLOTTING TIME 257 sec TESTED AT [facility] [address] (BEAKER) (test hcot=404) [place] [address] RAD, ABDOMEN/KUB, 1 VIEW [id number] 12:39:00Reason for exam:->Postop AAAFINAL REPORT CLINICAL HISTORY: [...] GodwinMDReport Verified Date/Time: 2017 12:39:57 Reading Location: [facility] Radiology Reading Room RAD, CHEST , 1 VIEW, NON [id number] 12:38:00For chest painReason for exam:->post opShould this be performed at the bedside?->YesFINAL REPORT CLINICAL HISTORY: post op TECHNIQUE: 1 view of the chest. COMPARISON: 04/10/2018 IMPRESSION: There are no focal infiltrates or effusions. Cardiomegaly is again seen with tortuosity of the thoracic aorta. Signed: Hardik Godwin MDReport Verified Date/Time: 04/15/201812:38:40 Reading Location: [facility] Radiology Reading Room [id number] 11:51:00 Test Item Value Reference Range Comments PHOSPHORUS (BEAKER) (test uwjs=135) 3.2 mg/dL 2.3-4.7 BASIC METABOLIC [id number] 11:51:00 Test Item Value Reference Range Comments SODIUM (BEAKER) (test 140 meq/L 136-145 ethl=827) POTASSIUM (BEAKER) (test 3.8 meq/L 3.5-5.1 ovpe=751) CHLORIDE (BEAKER) (test 109 meq/L 98-107 dvxa=981) CO2 (BEAKER) (test 24 meq/L 22-29 gqco=236) BLOOD UREA NITROGEN 12 mg/dL 7-21 (BEAKER) (test jhbo=963) CREATININE (BEAKER) (test 0.77 mg/dL 0.57-1.25 zinf=908) GLUCOSE RANDOM (BEAKER) 176 mg/dL 70-105 (test wlwl=762) CALCIUM (BEAKER) (test 9.7 mg/dL 8.4-10.2 endx=304) EGFR (BEAKER) (test 73 mL/min/1.73 sq m ESTIMATED GFR IS NOT lwjy=3909) ACCURATE CREATININE CLEARANCE IN PREDICTING GLOMERULAR FILTRATION RATE. ESTIMATED GFR IS NOT APPLICABLE FOR DIALYSIS PATIENTS. CBC W/PLT COUNT & AUTO [id number] 11:23:00 Test Item Value Reference Range Comments WHITE BLOOD CELL COUNT (BEAKER) (test zjes=855) 12.0 K/ L 3.5-10.5 RED BLOOD CELL COUNT (BEAKER) (test kwde=811) 3.84 M/ L 3.93-5.22 HEMOGLOBIN (BEAKER) (test hble=891) 11.4 GM/DL 11.2-15.7 HEMATOCRIT (BEAKER) (test fslh=585) 35.7 % 34.1-44.9 MEAN CORPUSCULAR VOLUME (BEAKER) (test bibj=566) 93.0 fL 79.4-94.8 MEAN CORPUSCULAR HEMOGLOBIN (BEAKER) (test 29.7 pg 25.6-32.2 owqz=190) MEAN CORPUSCULAR HEMOGLOBIN CONC (BEAKER) (test 31.9 GM/DL 32.2-35.5 hajb=799) RED CELL DISTRIBUTION WIDTH (BEAKER) (test 14.1 % 11.7-14.4 vzvc=335) PLATELET COUNT (BEAKER) (test znnl=012) 207 K/CU MM 150-450 MEAN PLATELET VOLUME (BEAKER) (test usag=266) 10.7 fL 9.4-12.3 NUCLEATED RED BLOOD CELLS (BEAKER) (test 0 /100 WBC 0-0 hpcr=611) NEUTROPHILS RELATIVE PERCENT (BEAKER) (test 77 % gyix=203) LYMPHOCYTES RELATIVE PERCENT (BEAKER) (test 15 % wmgl=362) MONOCYTES RELATIVE PERCENT (BEAKER) (test 6 % nlja=893) EOSINOPHILS RELATIVE PERCENT (BEAKER) (test 1 % vqnp=573) BASOPHILS RELATIVE PERCENT (BEAKER) (test 1 % mxep=031) NEUTROPHILS ABSOLUTE COUNT (BEAKER) (test 9.14 K/ L 1.56-6.13 dwfs=458) LYMPHOCYTES ABSOLUTE COUNT (BEAKER) (test 1.78 K/ L 1.18-3.74 golp=735) MONOCYTES ABSOLUTE COUNT (BEAKER) (test 0.72 K/ L 0.24-0.36 rdob=053) EOSINOPHILS ABSOLUTE COUNT (BEAKER) (test 0.16 K/ L 0.04-0.36 hvpu=340) BASOPHILS ABSOLUTE COUNT (BEAKER) (test 0.06 K/ L 0.01-0.08 aozw=122) IMMATURE GRANULOCYTES-RELATIVE PERCENT (BEAKER) 1 % 0-1 (test yszm=3554) PROTHROMBIN TIME/[id number] 11:22:00 Test Item Value Reference Range Comments PROTIME (BEAKER) (test zmcn=907) 15.7 seconds 11.7-14.7 INR (BEAKER) (test emwy=657) 1.3 <=5.9 RECOMMENDED COUMADIN/WARFARIN INR THERAPY RANGESSTANDARD DOSE: 2.0 - 3.0 Includes: PROPHYLAXIS forvenous thrombosis, systemic embolization; TREATMENT for venous thrombosis and/or pulmonary embolus.HIGH RISK: Target INR is 2.5-3.5 for patients with mechanical heart valves.CALCIUM, [id number] 11:06:00 Test Item Value Reference Range Comments CALCIUM IONIZED (BEAKER) (test fgll=822) 1.25 mmol/L 1.12-1.27 PH, BLOOD (BEAKER) (test noes=5378) 7.37 HEPATITIS C [id number] 15:18:00 Test Item Value Reference Range Comments HEPATITIS C ANTIBODY (BEAKER) (test jtzz=138) Nonreactive Nonreactive HEPATITIS B [id number] 15:18:00 Test Item Value Reference Range Comments HEPATITIS B CORE TOTAL ANTIBODY (BEAKER) (test Nonreactive Nonreactive zkde=611) HEPATITIS B SURFACE ANTIBODY (BEAKER) (test 63.1 mIU/mL <8.0 hjgr=362) HEPATITIS B SURFACE ANTIGEN (2) (BEAKER) (test Nonreactive Nonreactive kous=6148) HIV-1 ANTIGEN WITH HIV-1/2 [id number] 15:18:00 Test Item Value Reference Range Comments HIV-1 ANTIGEN WITH HIV 1\T\2 ANTIBODY (2) Nonreactive Nonreactive (BEAKER) (test gtld=7544) [id number] 15:08:00 Test Item Value Reference Range Comments LIPASE (BEAKER) (test cxhr=220) 10 U/L 8-78 [id number] 15:08:00 Test Item Value Reference Range Comments AMYLASE (BEAKER) (test lhim=150) 40 U/L 25-125 BASIC METABOLIC [id number] 15:08:00 Test Item Value Reference Range Comments SODIUM (BEAKER) (test 141 meq/L 136-145 asfl=426) POTASSIUM (BEAKER) (test 3.6 meq/L 3.5-5.1 gltd=167) CHLORIDE (BEAKER) (test 104 meq/L 98-107 tcat=749) CO2 (BEAKER) (test 27 meq/L 22-29 yilv=205) BLOOD UREA NITROGEN 12 mg/dL 7-21 (BEAKER) (test oyde=147) CREATININE (BEAKER) (test 0.86 mg/dL 0.57-1.25 hvsd=589) GLUCOSE RANDOM (BEAKER) 112 mg/dL 70-105 (test crok=945) CALCIUM (BEAKER) (test 9.8 mg/dL 8.4-10.2 axid=468) EGFR (BEAKER) (test 64 mL/min/1.73 sq m ESTIMATED GFR IS NOT eqjn=0823) ACCURATE CREATININE CLEARANCE IN PREDICTING GLOMERULAR FILTRATION RATE. ESTIMATED GFR IS NOT APPLICABLE FOR DIALYSIS PATIENTS. HEPATIC FUNCTION [id number] 15:08:00 Test Item Value Reference Range Comments TOTAL PROTEIN (BEAKER) (test iudv=951) 7.1 gm/dL 6.0-8.3 ALBUMIN (BEAKER) (test kdka=1260) 4.0 g/dL 3.5-5.0 BILIRUBIN TOTAL (BEAKER) (test sbzu=170) 0.4 mg/dL 0.2-1.2 BILIRUBIN DIRECT (BEAKER) (test liqp=940) 0.2 mg/dL 0.1-0.5 ALKALINE PHOSPHATASE (BEAKER) (test fgub=953) 135 U/L 40-150 AST (SGOT) (BEAKER) (test khxn=896) 22 U/L 5-34 ALT (SGPT) (BEAKER) (test pkhn=724) 22 U/L 6-55 LACTATE DEHYDROGENASE (LDH)2018-04-14 15:08:00 Test Item Value Reference Range Comments LACTATE DEHYDROGENASE (BEAKER) (test usia=943) 238 U/L 125-220 [id number] 14:47:00 Test Item Value Reference Range Comments PARTIAL THROMBOPLASTIN TIME (BEAKER) (test 31.9 seconds 22.5-36.0 tehr=374) PROTHROMBIN TIME/[id number] 14:46:00 Test Item Value Reference Range Comments PROTIME (BEAKER) (test vcpk=293) 14.1 seconds 11.7-14.7 INR (BEAKER) (test idzt=416) 1.1 <=5.9 RECOMMENDED COUMADIN/WARFARIN INR THERAPY RANGESSTANDARD DOSE: 2.0 - 3.0 Includes: PROPHYLAXIS forvenous thrombosis, systemic embolization; TREATMENT for venous thrombosis and/or pulmonary embolus.HIGH RISK: Target INR is 2.5-3.5 for patients with mechanical heart valves.RETICULOCYTE [id number] 14:36:00 Test Item Value Reference Range Comments RETICULOCYTE COUNT PCT (BEAKER) (test bebx=469) 1.0 % 0.5-1.7 CBC W/PLT COUNT & AUTO [id number] 14:36:00 Test Item Value Reference Range Comments WHITE BLOOD CELL COUNT (BEAKER) (test bqvu=591) 9.3 K/ L 3.5-10.5 RED BLOOD CELL COUNT (BEAKER) (test maae=214) 4.05 M/ L 3.93-5.22 HEMOGLOBIN (BEAKER) (test bvvt=603) 12.2 GM/DL 11.2-15.7 HEMATOCRIT (BEAKER) (test juvh=485) 37.2 % 34.1-44.9 MEAN CORPUSCULAR VOLUME (BEAKER) (test tycr=353) 91.9 fL 79.4-94.8 MEAN CORPUSCULAR HEMOGLOBIN (BEAKER) (test 30.1 pg 25.6-32.2 mtsf=380) MEAN CORPUSCULAR HEMOGLOBIN CONC (BEAKER) (test 32.8 GM/DL 32.2-35.5 xvzf=574) RED CELL DISTRIBUTION WIDTH (BEAKER) (test 14.2 % 11.7-14.4 cpdg=407) PLATELET COUNT (BEAKER) (test escd=631) 259 K/CU MM 150-450 MEAN PLATELET VOLUME (BEAKER) (test qqwu=072) 11.1 fL 9.4-12.3 NUCLEATED RED BLOOD CELLS (BEAKER) (test 0 /100 WBC 0-0 txyr=983) NEUTROPHILS RELATIVE PERCENT (BEAKER) (test 70 % lgof=965) LYMPHOCYTES RELATIVE PERCENT (BEAKER) (test 19 % egsr=180) MONOCYTES RELATIVE PERCENT (BEAKER) (test 8 % srht=495) EOSINOPHILS RELATIVE PERCENT (BEAKER) (test 2 % ngkj=710) BASOPHILS RELATIVE PERCENT (BEAKER) (test 1 % vuzt=393) NEUTROPHILS ABSOLUTE COUNT (BEAKER) (test 6.49 K/ L 1.56-6.13 cmpo=640) LYMPHOCYTES ABSOLUTE COUNT (BEAKER) (test 1.74 K/ L 1.18-3.74 mjjo=585) MONOCYTES ABSOLUTE COUNT (BEAKER) (test 0.78 K/ L 0.24-0.36 wfwx=545) EOSINOPHILS ABSOLUTE COUNT (BEAKER) (test 0.14 K/ L 0.04-0.36 mmzr=681) BASOPHILS ABSOLUTE COUNT (BEAKER) (test 0.07 K/ L 0.01-0.08 frta=988) IMMATURE GRANULOCYTES-RELATIVE PERCENT (BEAKER) 0 % 0-1 (test xdvc=5245) URINALYSIS W/ [id number] 14:25:00 Test Item Value Reference Range Comments COLOR (BEAKER) (test fhal=209) Yellow CLARITY (BEAKER) (test trow=026) Clear SPECIFIC GRAVITY UA (BEAKER) (test ptuv=601) 1.010 1.001-1.035 PH UA (BEAKER) (test dkmi=472) 6.5 5.0-8.0 PROTEIN UA (BEAKER) (test xjgu=309) 20 mg/dL Negative GLUCOSE UA (BEAKER) (test oauc=227) Negative Negative KETONES UA (BEAKER) (test jvhv=105) Negative Negative BILIRUBIN UA (BEAKER) (test hwps=207) Negative Negative BLOOD UA (BEAKER) (test ysqv=928) Negative Negative NITRITE UA (BEAKER) (test fvke=846) Negative Negative LEUKOCYTE ESTERASE UA (BEAKER) (test ybie=316) Negative Negative UROBILINOGEN UA (BEAKER) (test cvat=255) 0.2 mg/dL 0.2-1.0 RBC UA (BEAKER) (test nnjr=443) < /HPF WBC UA (BEAKER) (test ifqf=329) < /HPF MUCUS (BEAKER) (test uelo=5997) Rare SQUAMOUS EPITHELIAL (BEAKER) (test chlx=860) < /HPF HYALINE CASTS (BEAKER) (test oynv=120) 4 /LPF SOURCE(BEAKER) (test dfcs=4432) RAD, CHEST, 2 [id number] 14:12:00Reason for exam:->surgeryFINAL REPORT Chest, two views HISTORY: Surgery COMPARISON: None. DISCUSSION: Lungs are clear without focal consolidation. Cardiomediastinal silhouette is unremarkable. Tortuosityand ectasia of the thoracic aorta. No acute osseous abnormality. No pleural effusion or pneumothorax. Visualized portions of the upper abdomen are unremarkable. IMPRESSION: No acute cardiopulmonary abnormality. Signed: Gera Hernandez MDReport Verified Date/Time: 04/14/2018 14:12:09 Reading Location: [address] Radiology Reading Room 02:12 PM
[2019-03-27] MEDS ORDERED: SODIUM CHLORIDE 0.9% 10ML INJ IV PRN (15:20)
[2019-03-27 16:17] LABS: Absolute Lymphocytes (CBC) 1.7 K/uL (0.7-4.9); Basophils % 1.1 % (0-1.3); Eosinophils % 0.9 % (0-4.4); Hematocrit 31.8 % (36.0-45.0); Lymphocytes % 17.1 % (15.3-44.8); MPV 7.5 fL (7.6-11.3); Monocytes % 8.4 % (3.3-12.3); RBC Red Blood Cell Count 3.94 M/uL (3.86-4.86)
--- NOTE | 2019-03-27 16:19 | EKG ---
Test Date: 2019-03-27 Test Time: 15:44:49 Business Support Liaison: FERNANDO MEASUREMENT RESULTS: Intervals: Rate: 78 LA: 202 QRSD: 70 QT: 370 QTc: 421 [place]: P: 55 LA: 202 QRS: -7 T: 65 INTERPRETIVE STATEMENTS: Normal sinus rhythm Inferior infarct, age undetermined Abnormal ECG Compared to ECG 02/16/2019 12:20:38 Myocardial infarct finding now present First degree AV block no longer present Electronically Signed On 03-27-19 16:19:17 CDT by Nadeem Swenson
[2019-03-27 16:34] LABS: BUN Blood Urea Nitrogen 15 mg/dL (7-18); Bicarbonate 29 mmol/L (21-32); CKMB Creatine Kinase MB 1.7 ng/mL (0.3-3.6); Creatine Phosphokinase 33 U/L (26-192); Glucose Level 142 mg/dL (74-106); Sodium Level 140 mmol/L (136-145); Troponin I < 0.02 ng/mL (0.0-0.045)
[2019-03-27 17:18] LABS: Anisocytosis 2+; Blood Morphology Comment NOTED (NOT SEEN); Platelet Estimate ADEQ; Urine White Blood Cell Casts OK
--- NOTE | 2019-03-27 18:13 | RAD REPORT ---
EXAM DESCRIPTION: US - Lower Extremity Artery [facility] Ltd - 03/27/2019 5:56 pm CLINICAL HISTORY: Leg pain COMPARISON: none FINDINGS: Left common femoral, left superficial femoral and left popliteal arterial waveforms are tr i and biphasic. Mild plaque is noted. Left posterior tibial artery is occluded. 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
[2019-03-27 20:10] VITALS: BMI 18.8
[2019-03-27 20:34] LABS: Urine Appearance CLEAR; Urine Bilirubin NEGATIVE (NEG); Urine Blood NEGATIVE (NEG); Urine Color YELLOW; Urine Glucose NEGATIVE (NEG); Urine Protein NEGATIVE (NEG); Urine Specific Gravity <=1.005 (1.005-1.030); Urine Urobilinogen 0.2 mg/dL (0.2-1.0); Urine pH 7.5 (5.0-7.0)
[2019-03-27 20:59] LABS: Urine Microscopic Reflex NO UMIC
[2019-03-27] MEDS: ALPRAZOLAM 0.5 MG TABLET PO SCH (21:09)
[2019-03-27] MEDS: PENTOXIFYLLINE ER 400 MG TAB PO SCH (22:31)
[2019-03-27 23:53] LABS: CKMB Creatine Kinase MB 1.2 ng/mL (0.3-3.6); Creatine Phosphokinase 28 U/L (26-192); Troponin I < 0.02 ng/mL (0.0-0.045)
[2019-03-28 08:02] LABS: CKMB Creatine Kinase MB 1.2 ng/mL (0.3-3.6); Creatine Phosphokinase 24 U/L (26-192); Troponin I < 0.02 ng/mL (0.0-0.045)
[2019-03-28] MEDS ORDERED: REGADENOSON 0.4 MG/5 ML SYR IV ONE (08:23)
[2019-03-28] MEDS ORDERED: PENTOXIFYLLINE ER 400 MG TAB PO SCH (09:00)
[2019-03-28] MEDS ORDERED: D50W 25 GM/50 ML SYRINGE IV PRN (09:49)
[2019-03-28] MEDS ORDERED: GLUCAGON 1 MG/VIAL IM PRN (09:49)
[2019-03-28] MEDS: PANTOPRAZOLE 40 MG INJ IVP SCH (10:05)
[2019-03-28] MEDS: PARoxetine HCl 10 MG TAB PO SCH (10:06)
[2019-03-28] MEDS: PENTOXIFYLLINE ER 400 MG TAB PO SCH ×2 (10:06→21:16)
--- NOTE | 2019-03-28 10:36 | RAD REPORT ---
EXAM DESCRIPTION: NM - Rest Stress Cardiac Imaging - 03/28/2019 10:16 am CLINICAL HISTORY: Chest pain COMPARISON: February 2018 TECHNIQUE: The patient was administered approximately 10 mCi of Tc 99m Sestamibi prior to resting SP ECT imaging of the heart. The patient was then administered approximately 30 mCi of Tc 99m Sestamibi following exercise or pharmacologic stress. Multiplanar SPECT images were reviewed. FINDINGS: The end diastolic volume is 60 ml, the end systolic volume is 22 ml, and the ejection frac tion is 64 %. Ventricular volumes and ejection fraction are not substantially different. Ejection fra ction was 73% on the February 2018 study. No stress-induced ischemic changes identified. There is some thinning at the apex and some minimal di minished activity along the inferior wall that is believed to be from diaphragm attenuation artifact. IMPRESSION: No stress-induced ischemia. No scarring suspected. Ventricular volume ejection fraction are normal range.
[2019-03-28] MEDS: INSULIN -REGULAR HUMAN 50 UNIT/0.5 ML ML SQ SCH ×3 (11:58→21:00)
--- NOTE | 2019-03-28 12:25 | CON ---
Date of Consultation: 03/27/2019 Reason For Consultation: Abnormal EKG and claudication. Ms. Sheikh is a 79-year-old white woman sh e is known to us from previous office visits and admissions. She has a history of gastroesophageal r eflux, anxiety, and hypertension. She has also had a history of peripheral arterial disease. She is status post abdominal aortic aneurysm repair by Dr. Avelar. She basically came in with left leg pa in at rest and was walking mostly on left dorsum of the foot. Arterial Doppler showed complete occlu garcia of her posterior tibial artery. The rest of the arterial Doppler was previously normal bilerlinda alegria. The patient is very sensitive to aspirin and Plavix. She breathes very easy. An EKG that was done by Dr. 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 Her last echocardiogram was in December 2017, which was normal. She had a stress test before her abdominal aortic aneurysm surgery a year ago, wh ich was normal. She denies any chest pain. Allergies: TYLENOL, LISINOPRIL, SULFA, VANCOMYCIN, AND CODEINE. Review of Systems: Negative. Social History: Negative. Family History: Noncontributory. Medications: At home include Xanax, clonidine, Pepcid, Paxil, Protonix. Physical Examination: General: Ms. Sheikh was in no acute distress. Vital Signs: Stable. She was afebrile. HEENT: Negative. Neck: Supple. No bruit. Chest: Clear to auscultation and percussion. Cardiac: Regular rhythm and rate. No murmurs, gallops, or rubs. Abdomen: Benign. Extremities: Revealed no clubbing, cyanosis, or edema. She had good pulses in the left lower extrem ity. I could not feel dorsalis pedis pulse. She did have a posterior tibial pulse. Her foot has no rmal temperature and normal color. No edema. Skin: Dry and intact. Neurological: She was not focal. 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 Arterial Doppler showed occlusion at the left posterio r tibial. Hemoglobin was 10.0. Impression And Plan: 1.Abnormal EKG. 2.Abdominal aortic aneurysm repair about year ago with 100% posterior tibial artery occlusion on the left side. 3.Anemia. 4.Anxiety. 5.Hypertension. 6.Gastroesophageal reflux disease. I do not believe all her symptoms in her left leg are secondary to her arterial disease. The patient has symptoms at rest and when she walks she has symptoms in the dorsum of the foot which is unusual for peripheral arterial disease. Nevertheless she is very sensi tive for aspirin and Plavix. I will try her on Trental 400 mg 1 p.o. b.i.d. and need to get another echocardiogram and stress test to check her coronary status and her valvular status. Continue the re st of her regimen otherwise. I will discuss the case with Dr. Soliman. I am going to avoid doing ab dominal angiogram with runoff at this point unless her medication do not work. SUDHIR/VINICIO Voice ID: [id number] Report ID: [id number]
[2019-03-28] MEDS: ALPRAZOLAM 0.5 MG TABLET PO SCH (21:15)
--- NOTE | 2019-03-28 21:32 | HP ---
Date of Admission: 03/27/2019 Entrance Complaint: Leg and foot pain. History Of Present Illness: The patient presented to the office complaining of a 2-3 day history of significant pain around the ankle joint, more medial than lateral with difficulty with weightbearing. She stated over the past few weeks she has had some episodes where she has had leg cramps. Also saenz d some problem with an ankle and foot area; however, not as severe as it has been. Past Medical History: The patient has been recently admitted for numerous problems including weight loss and anorexia. The patient has also had a history of AAA repair about a year ago, resulting impr ovement in her circulation. She also has some anemia, had a GI workup including scopes within the pas t month. Family History: Noncontributory. Social History: Nondrinker. Nonsmoker. Although the patient states she has been under considerable stress as of late due to some family situ ations. Physical Examination: General: The patient is a thin elderly female. No acute distress. Vital Signs: With stable vital signs. Head and Neck: Normocephalic. HEENT: Pupils equal, react to light and accommodation. Fundi negative. Trachea midline. Thyroid n ot palpable. ENT negative. Chest: Clear to P and A. Cardiovascular: PMI midclavicular line. Heart sounds normal. Peripheral pulses present and equal bilaterally. Abdomen: No organomegaly. Bowel sounds present. Extremities: Good tone and movement bilaterally. Reflexes physiologic. Decreased dorsalis pedis on the right and unable to palpate one on the left. No other abnormalities. Rectal and Pelvic: Deferred. Impression: Acute vascular insufficiency of the left leg. Plan: The patient will be admitted, placed on telemetry as she had some changes in her EKG compared to one a couple of weeks ago. X-ray, there was no cardiac element and anterior Doppler will also be d one. HR/MODL Voice ID: [id number]
--- NOTE | 2019-03-28 21:55 | PN ---
Date of Progress Note: 03/28/2019 She was admitted yesterday with an abnormal EKG, claudication, left foot pain. Arterial Doppler show ed 100% posterior tibial on the left. She was placed on Trental 400 mg b.i.d. She is still having p ain, but is much improved today. No chest pain reported. Echocardiogram was normal. Lexiscan was n ormal. We will send her home on Trental. If she does not improve, I will consider doing an abdomina l angiogram with runoff. Case was discussed with Dr. Soliman. SUDHIR/VINICIO Voice ID: [id number] Report ID: [id number]
--- NOTE | 2019-03-28 23:11 | PN ---
Date of Progress Note: 03/28/2019 The patient states she feels somewhat better today. Discussion of the vessel involved as far as proc edure was held with both Cardiology and Radiology and felt that this was not amendable to a procedure . Trental was added to the regimen by Cardiology. Her workup basically was negative, awaiting the M RI; if normal, she could be discharged. HR/MODL Voice ID: [id number] Report ID: [id number]
[2019-03-29] MEDS: INSULIN -REGULAR HUMAN 50 UNIT/0.5 ML ML SQ SCH ×3 (07:30→16:30)
--- NOTE | 2019-03-29 08:08 | ECHO ---
HEIGHT: 5 ft 7 in WEIGHT: 120 lb 0 oz DATE OF STUDY: 03/28/[address]: Wally Soliman MD 2-DIMENSIONAL: YES M.MODE: YES DOPPLER: YES COLOR FLOW: YES TDS: YES PORTABLE: NO DEFINITY: NO BUBBLE STUDY: NO DIAGNOSIS: DYSPNEA CARDIAC HISTORY: CATHERIZATION: YES SURGERY: NO PROSTHETIC VALVE: NO PACEMAKER: NO MEASUREMENTS (cm) DIASTOLIC (NORMALS) SYSTOLIC (NORMALS) IVSd 1.0 (0.6-1.2) LA Diam (1.9-4.0) LVEF 73% LVIDd 4.7 (3.5-5.7) LVIDs 2.7 (2.0-3.5) %FS 42% LVPWd 1.2 (0.6-1.2) Ao Diam 2.9 (2.0-3.7) 2 DIMENSIONAL ASSESSMENT: RIGHT ATRIUM: NORMAL LEFT ATRIUM: NORMAL RIGHT VENTRICLE: NORMAL LEFT VENTRICLE: NORMAL TRICUSPID VALVE: NORMAL MITRAL VALVE: NORMAL PULMONIC VALVE: NORMAL AORTIC VALVE: NORMAL PERICARDIAL EFFUSION: NONE AORTIC ROOT: NORMAL LEFT VENTRICULAR WALL MOTION: NORMAL DOPPLER/COLOR FLOW: NORMAL COMMENTS: NORMAL 2D ECHOCARDIOGRAM WITH DOPPLER. NO WALL MOTION ABNORMALITY. NO EFFUSION. TECHNOLOGIST: Lefty ERNANDEZ
--- NOTE | 2019-03-29 08:13 | TREADPHA ---
DX: CHEST PAIN, EXTENDED DYSPNEA Date of Study: 03/28/2019 Ht: 5 7 Wt: 120 lb 0 oz Consulting Physician: SANYA MEDICATIONS: XANAX, PROTONIX, PAXIL, TRENTAL HISTORY: 79 YEAR OLD FEMALE HERE FOR EXTENDED DYSPNEA. HISTORY OF DIABETES AND HYPERTENSION. PHYSICIAL EXAMINATION: RESTING B.P.: 133/86 RESTING H.R.: 78 RESTING EKG: SINUS RYTHYM, OLD MYOCARDIAL INFARCTION. PROTOCOL: LEXISCAN EXERCISE TIME: 3:30 B.P. AT PEAK STRESS: 109/68 IMPRESSION: LEXISCAN STRESS TEST PERFORMED. CARDIOLITE INJECTED PER PROTOCOL. PREMATURE VENTRICULAR COMPLEXES NOTED PRE TEST. DENIES ANY CHEST PAIN, NO DISTRESS NOTED. SEE NUCLEAR MEDICINE REPORT.
[2019-03-29] MEDS: PARoxetine HCl 10 MG TAB PO SCH (08:40)
[2019-03-29] MEDS: PANTOPRAZOLE 40 MG INJ IVP SCH (08:41)
[2019-03-29] MEDS: PENTOXIFYLLINE ER 400 MG TAB PO SCH (08:41)
--- NOTE | 2019-03-29 08:54 | RAD REPORT ---
EXAM DESCRIPTION: MRI - Foot Left Wo Cont - 03/28/2019 8:57 pm CLINICAL HISTORY: STRESS FRACTURE Foot and ankle pain and swelling. COMPARISON: None FINDINGS: MR left ankle and left foot without gadolinium was performed Edematous changes are present in the soft tissues of the ankle particularly along the anterolateral g utter as well as posteriorly. Subcutaneous edema and swelling is present about the medial and lateral malleoli. Achilles tendon and plantar fascia are intact. Mild tenosynovitis is seen of the flexor and extensor tendons of the ankle. No acute fracture or dislocation is seen. No soft tissue mass or hematoma. IMPRESSION: Fluid and edema is seen about the ankle and fluid without underlying fracture visualized .
[2019-03-29 09:46] VITALS: O2SAT 98
[2019-03-29] MEDS ORDERED: IBUPROFEN 100 MG/5 ML UCUP PO PRN (11:11)
[2019-03-29] MEDS ORDERED: FLEET ENEMA ADULT PR ONE (11:35)
--- NOTE | 2019-03-29 11:46 | RAD REPORT ---
EXAM DESCRIPTION: MRI - Ankle Left Wo Cont - 03/28/2019 8:57 pm CLINICAL HISTORY: STRESS FRACTURE Foot and ankle pain and swelling. COMPARISON: None FINDINGS: MR left ankle and left foot without gadolinium was performed Edematous changes are present in the soft tissues of the ankle particularly along the anterolateral g utter as well as posteriorly. Subcutaneous edema and swelling is present about the medial and lateral malleoli. Achilles tendon and plantar fascia are intact. Mild tenosynovitis is seen of the flexor and extensor tendons of the ankle. No acute fracture or dislocation is seen. No soft tissue mass or hematoma. IMPRESSION: Fluid and edema is seen about the ankle and foot without underlying fracture visualized.
--- NOTE | 2019-03-29 14:24 | P.DS ---
Admission Date: 03/27/19 Discharge Date: 03/29/19 Primary Care Provider: Dr. Soliman Disposition: DC HOME/HOME HEALTH CARE Discharge Condition: GOOD Reason for Admission: Left foot pain Consultations: Cardiology-Dr. Swenson Procedures: Venous doppler: COMPARISON: No comparisons FINDINGS: Left lower extremity venous system was interrogated with Doppler technique. Normal flow, compressibility and augmentation was noted. There is no DVT present. IMPRESSION: No evidence of left lower extremity deep venous thrombosis. Arterial doppler: FINDINGS: Left common femoral, left superficial femoral and left popliteal arterial waveforms are tri and biphasic. Mild plaque is noted. Left posterior tibial artery is occluded. Monophasic left dorsalis pedis arterial waveforms IMPRESSION: Occlusion of the left posterior tibial artery Mild disease involving the proximal and mid arteries left lower extremity Stress test: COMPARISON: February 2018 TECHNIQUE: The patient was administered approximately 10 mCi of Tc 99m Sestamibi prior to resting SPECT imaging of the heart. The patient was then administered approximately 30 mCi of Tc 99m Sestamibi following exercise or pharmacologic stress. Multiplanar SPECT images were reviewed. FINDINGS: The end diastolic volume is 60 ml, the end systolic volume is 22 ml, and the ejection fraction is 64 %. Ventricular volumes and ejection fraction are not substantially different. Ejection fraction was 73% on the February 2018 study. No stress-induced ischemic changes identified. There is some thinning at the apex and some minimal diminished activity along the inferior wall that is believed to be from diaphragm attenuation artifact. IMPRESSION: No stress-induced ischemia. No scarring suspected. Ventricular volume ejection fraction are normal range. MRI: FINDINGS: MR left ankle and left foot without gadolinium was performed Edematous changes are present in the soft tissues of the ankle particularly along the anterolateral gutter as well as posteriorly. Subcutaneous edema and swelling is present about the medial and lateral malleoli. Achilles tendon and plantar fascia are intact. Mild tenosynovitis is seen of the flexor and extensor tendons of the ankle. No acute fracture or dislocation is seen. No soft tissue mass or hematoma. IMPRESSION: Fluid and edema is seen about the ankle and foot without underlying fracture visualized. Medical Problem List: Left foot pain with noted occlusion of the left posterior tibial artery and mild tenosynovitis of the flexor and extensor tendons of the ankle, suspect underlying claudication and PVD Hypertension Hyperlipidemia GERD Anxiety Hyperglycemia suspect DM Type 2 Brief History of Present Illness: 79-year-old female presents with left leg pain primarily to dorsal aspect of the foot. Patient was admitted by her PCP Dr. Soliman. I am covering for her. Hospital Course: Patient presented with left foot pain Patient was admitted for further evaluation. Arterial Doppler shows occlusion of the left posterior tibial artery. Venous Doppler showed DVT. Patient seen and evaluated by Cardiology. Patient with history of hypertension, history of aortic aneurysm repair. Cardiology recommended cardiac stress test which was unremarkable. No need for cardiac intervention. Cardiology recommended to start Trental for likely claudication/PVD. She will continue this at home. Since the patient continued to have more pain MRI was done. It showed mild tenosynovitis of the flexor and extensor tendons of the ankle. No fracture was noted. Patient worked with physical therapy for recommendations and fall precautions. Patient uses a walker at home. Case also discussed with her orthopedic physician. Will recommend follow up with orthopedics if pain continues. Patient may require a boot. He is to elevate the leg when sitting or lying. Patient with you with Trental. Patient may take ibuprofen 200 mg 3 times a day as needed for pain or Tylenol 500 mg 3 times a day as needed for pain. Fall precautions in place. Continue PT recommendations. Home health and physical therapy to be continued at home. Patient with hypertension. Patient will continue with her medication clonidine patch 0.2 mg every week. Recommend to maintain blood pressures less 150/80. Further adjustment can be done by her PCP. Patient with underlying GERD. Patient will continue with her medication Protonix 40 mg daily. Patient with anxiety. Patient will continue with the medication Paxil 10 mg daily. Patient with chronic iron deficiency anemia. Recommend multi vitamin daily. Patient has not tolerated iron in the past. Recommended recheck CBC in 2-4 weeks to monitor progress. Blood sugars were elevated. Suspect diabetes. A1c obtained. Will consider diabetic medication at discharge. This can be further addressed as an outpatient. Vital Signs/Physical Exam: Temp Pulse Resp BP Pulse Ox 98.7 F 88 16 114/76 98 03/29/19 12:00 03/29/19 12:00 03/29/19 12:00 03/29/19 12:00 03/29/19 12:00 General: Alert, In no apparent distress, Oriented x3, Cooperative HEENT: Atraumatic Neck: Supple Respiratory: Clear to auscultation bilaterally, Normal air movement Cardiovascular: Normal pulses, Regular rate/rhythm Gastrointestinal: Normal bowel sounds, Soft and benign, Non-distended, No tenderness, No masses, No rebound, No guarding Musculoskeletal: No erythema, No tenderness, No warmth Integumentary: No erythema, No warmth, No cyanosis, Other (Mild tenderness to full flexion and extension of the left ankle.) Neurological: Normal speech, Normal strength at 5/5 x4 extr, Normal tone, Normal affect Laboratory Data at Discharge: WBC 9.7 K/uL (4.3-10.9) 03/27/19 16:02 Hgb 10.0 g/dL (12.0-15.0) L 03/27/19 16:02 Hct 31.8 % (36.0-45.0) L 03/27/19 16:02 Plt Count 293 K/uL (152-406) 03/27/19 16:02 Sodium 140 mmol/L (136-145) 03/27/19 16:02 Potassium 4.0 mmol/L (3.5-5.1) 03/27/19 16:02 BUN 15 mg/dL (7-18) 03/27/19 16:02 Creatinine 0.87 mg/dL (0.55-1.3) 03/27/19 16:02 Glucose 142 mg/dL (74-106) H 03/27/19 16:02 Troponin I < 0.02 ng/mL (0.0-0.045) 03/28/19 07:34 Home Medications: PARoxetine HCl [Paxil*] 10 mg PO DAILY 07/17/18 Clonidine Patch [Catapres-Tts 2*] 1 patch TOP SEECOM 01/03/19 Pantoprazole [Protonix Tab*] 40 mg PO DAILY #30 tab 01/06/19 Alprazolam [Xanax] 0.25 mg PO BEDTIME 03/27/19 Pentoxifylline 400 mg PO BID #60 tablet.er 03/28/19 Multivitamin [Daily Multiple Vitamin] 1 each PO DAILY #30 tablet 03/29/19 New Medications: Multivitamin [Daily Multiple Vitamin] 1 each PO DAILY #30 tablet Pentoxifylline 400 mg PO BID #60 tablet.er Patient Discharge Instructions: 1. Recommend follow up with PCP in 1 week. 2. Patient presented with left foot pain Patient was admitted for further evaluation. Arterial Doppler shows occlusion of the left posterior tibial artery. Venous Doppler showed DVT. Patient seen and evaluated by Cardiology. Patient with history of hypertension, history of aortic aneurysm repair. Cardiology recommended cardiac stress test which was unremarkable. No need for cardiac intervention. Cardiology recommended to start Trental for likely claudication/PVD. Patient will continue with Trental at discharge. Since the patient continued to have more pain MRI was done. It showed mild tenosynovitis of the flexor and extensor tendons of the ankle. No fracture was noted. Patient worked with physical therapy for recommendations and fall precautions. Patient uses a walker at home. Case also discussed with her orthopedic physician. Will recommend follow up with orthopedics if pain continues. Patient may require a boot. She is to elevate the leg when sitting or lying. Patient with you with Trental. Patient may take ibuprofen 200 mg 3 times a day as needed for pain or Tylenol 500 mg 3 times a day as needed for pain. Fall precautions in place. Continue with PT recommendations. Home health and physical therapy will be continued at home. 3. Patient with hypertension. Patient will continue with her medication clonidine patch 0.2 mg every week. Recommend to maintain blood pressures less than 150/80. Further adjustment can be done by her PCP. 4. Patient with underlying GERD. Patient will continue with her medication Protonix 40 mg daily. 5. Patient with anxiety. Patient will continue with the medication Paxil 10 mg daily. 6. Patient with chronic iron deficiency anemia. Recommend multi vitamin daily. Patient has not tolerated iron in the past. Recommended recheck CBC in 2-4 weeks to monitor progress. 7. Blood sugars were elevated. Suspect diabetes. A1c obtained. Will consider diabetic medication at discharge. This can be further addressed as an outpatient. Diet: AHA Activity: Fall precautions Time spent managing pt's care (in minutes): 55
--- NOTE | 2019-03-29 14:28 | RAD REPORT ---
EXAM DESCRIPTION: US - Extremity Venous Uni Ltd - 03/29/2019 2:11 pm CLINICAL HISTORY: Left ankle swelling Leg swelling and edema. COMPARISON: No comparisons FINDINGS: Left lower extremity venous system was interrogated with Doppler technique. Normal flow, c ompressibility and augmentation was noted. There is no DVT present. IMPRESSION: No evidence of left lower extremity deep venous thrombosis.
[2019-03-29 16:21] VITALS: BP 116/72; TEMP 98.5
== END 2019-03-29 18:05 | disposition home health service (06) ==
LOC: 4TH 14:37
PROVIDERS: ADMIT Family Medicine; ATTEND Family Medicine
DX: M79.672 Pain in left foot (principal); I77.9 Disorder of arteries and arterioles, unspecified; M65.872 Other synovitis and tenosynovitis, left ankle and foot; I10 Essential (primary) hypertension; E78.5 Hyperlipidemia, unspecified; K21.9 Gastro-esophageal reflux disease without esophagitis; F41.9 Anxiety disorder, unspecified; R73.9 Hyperglycemia, unspecified; D50.9 Iron deficiency anemia, unspecified; R94.31 Abnormal electrocardiogram [ECG] [EKG]; I71.4 Abdominal aortic aneurysm, without rupture; I25.2 Old myocardial infarction; I49.3 Ventricular premature depolarization; Z79.899 Other long term (current) drug therapy
CPT/HCPCS: 93005; 93017; 93306; 85025; 80048; 36415 ×2; 82550 ×3; 82962 ×9; 81003; 83036; 84484 ×3; 82553 ×3; 93926; 93971; 73721; 73718; 97110; 97163; 97530; 78452; G0379; C9113 ×3; J2785; A9500; G0378

== ENCOUNTER 2019-05-29 10:53 | Observation (INO) | payer OTHER ==
--- OUTSIDE RECORDS SUMMARY | 2019-05-29 11:18 | XMS REPORT ---
:1940 [facility] [address] [place] [address] Care Team Providers Name Role Phone DOMINIC [...] ID: VIEW, NON DEPT EVARShould this be [phone] Chest one view performed at the INDICATION: [...] MDReport Verified Date/Time: 04/19/2018 10:16:05 Reading Location: [facility] Reading Room PHORUS 2018-04-19 05:21:00 Test Item Value Reference Range Comments PHOSPHORUS (BEAKER) (test uyof=252) 4.0 mg/dL 2.3-4.7 [id number] 05:21:00 Test Item Value Reference Range Comments MAGNESIUM (BEAKER) (test sueq=169) 2.2 mg/dL 1.6-2.6 BASIC METABOLIC [id number] 05:21:00 Test Item Value Reference Range Comments SODIUM (BEAKER) (test 141 meq/L 136-145 mplk=458) POTASSIUM (BEAKER) (test 3.6 meq/L 3.5-5.1 aazw=321) CHLORIDE (BEAKER) (test 106 meq/L 98-107 tret=997) CO2 (BEAKER) (test 28 meq/L 22-29 bywr=240) BLOOD UREA NITROGEN 20 mg/dL 7-21 (BEAKER) (test oksk=996) CREATININE (BEAKER) (test 0.87 mg/dL 0.57-1.25 zqid=912) GLUCOSE RANDOM (BEAKER) 122 mg/dL 70-105 (test vuje=316) CALCIUM (BEAKER) (test 9.0 mg/dL 8.4-10.2 cnsd=676) EGFR (BEAKER) (test 63 mL/min/1.73 sq m ESTIMATED GFR IS NOT jhzj=5815) ACCURATE CREATININE CLEARANCE IN PREDICTING GLOMERULAR FILTRATION RATE. ESTIMATED GFR IS NOT APPLICABLE FOR DIALYSIS PATIENTS. [id number] 04:58:00 Test Item Value Reference Range Comments PARTIAL THROMBOPLASTIN TIME (BEAKER) (test 36.6 seconds 22.5-36.0 brpm=248) PROTHROMBIN TIME/[id number] 04:57:00 Test Item Value Reference Range Comments PROTIME (BEAKER) (test vrjk=628) 15.9 seconds 11.7-14.7 INR (BEAKER) (test rnzq=972) 1.3 <=5.9 RECOMMENDED COUMADIN/WARFARIN INR THERAPY RANGESSTANDARD DOSE: 2.0 - 3.0 Includes: PROPHYLAXIS forvenous thrombosis, systemic embolization; TREATMENT for venous thrombosis and/or pulmonary embolus.HIGH RISK: Target INR is 2.5-3.5 for patients with mechanical heart valves.CBC (HEMOGRAM ONLY)2018-04-19 04:47:00 Test Item Value Reference Range Comments WHITE BLOOD CELL COUNT (BEAKER) (test xzhu=245) 9.5 K/ L 3.5-10.5 RED BLOOD CELL COUNT (BEAKER) (test vjyv=445) 3.64 M/ L 3.93-5.22 HEMOGLOBIN (BEAKER) (test thji=724) 10.6 GM/DL 11.2-15.7 HEMATOCRIT (BEAKER) (test vyvi=627) 33.8 % 34.1-44.9 MEAN CORPUSCULAR VOLUME (BEAKER) (test fjxh=877) 92.9 fL 79.4-94.8 MEAN CORPUSCULAR HEMOGLOBIN (BEAKER) (test 29.1 pg 25.6-32.2 neoi=837) MEAN CORPUSCULAR HEMOGLOBIN CONC (BEAKER) (test 31.4 GM/DL 32.2-35.5 jplt=866) RED CELL DISTRIBUTION WIDTH (BEAKER) (test 14.1 % 11.7-14.4 zwnt=196) PLATELET COUNT (BEAKER) (test xvpg=517) 232 K/CU MM 150-450 MEAN PLATELET VOLUME (BEAKER) (test cgse=891) 10.9 fL 9.4-12.3 NUCLEATED RED BLOOD CELLS (BEAKER) (test 0 /100 WBC 0-0 xepy=354) RAD, CHEST, 1 VIEW, NON [id number] 08:00:00Reason for exam:->S/P EVARShould this be performed [...] MDReport Verified Date/Time: 04/18/2018 08:00:53 Reading Location: [facility] Reading Room [id number] 05:25:00 Test Item Value Reference Range Comments PHOSPHORUS (BEAKER) (test hawy=400) 3.6 mg/dL 2.3-4.7 [id number] 05:25:00 Test Item Value Reference Range Comments MAGNESIUM (BEAKER) (test wcne=420) 2.2 mg/dL 1.6-2.6 BASIC METABOLIC [id number] 05:25:00 Test Item Value Reference Range Comments SODIUM (BEAKER) (test 139 meq/L 136-145 ocal=228) POTASSIUM (BEAKER) (test 3.2 meq/L 3.5-5.1 jjzp=606) CHLORIDE (BEAKER) (test 103 meq/L 98-107 hedk=429) CO2 (BEAKER) (test 25 meq/L 22-29 zlpl=989) BLOOD UREA NITROGEN 17 mg/dL 7-21 (BEAKER) (test gfyf=813) CREATININE (BEAKER) (test 0.86 mg/dL 0.57-1.25 mglp=480) GLUCOSE RANDOM (BEAKER) 150 mg/dL 70-105 (test xidi=920) CALCIUM (BEAKER) (test 9.6 mg/dL 8.4-10.2 yvwo=565) EGFR (BEAKER) (test 64 mL/min/1.73 sq m ESTIMATED GFR IS NOT rkxx=0453) ACCURATE CREATININE CLEARANCE IN PREDICTING GLOMERULAR FILTRATION RATE. ESTIMATED GFR IS NOT APPLICABLE FOR DIALYSIS PATIENTS. [id number] 05:06:00 Test Item Value Reference Range Comments PARTIAL THROMBOPLASTIN TIME (BEAKER) (test 36.5 seconds 22.5-36.0 viht=466) PROTHROMBIN TIME/[id number] 05:05:00 Test Item Value Reference Range Comments PROTIME (BEAKER) (test wdnc=444) 16.5 seconds 11.7-14.7 INR (BEAKER) (test embl=460) 1.3 <=5.9 RECOMMENDED COUMADIN/WARFARIN INR THERAPY RANGESSTANDARD DOSE: 2.0 - 3.0 Includes: PROPHYLAXIS forvenous thrombosis, systemic embolization; TREATMENT for venous thrombosis and/or pulmonary embolus.HIGH RISK: Target INR is 2.5-3.5 for patients with mechanical heart valves.CBC (HEMOGRAM ONLY)2018-04-18 04:52:00 Test Item Value Reference Range Comments WHITE BLOOD CELL COUNT (BEAKER) (test pmwp=275) 11.2 K/ L 3.5-10.5 RED BLOOD CELL COUNT (BEAKER) (test dbzi=269) 3.90 M/ L 3.93-5.22 HEMOGLOBIN (BEAKER) (test hesz=878) 11.3 GM/DL 11.2-15.7 HEMATOCRIT (BEAKER) (test srfe=573) 35.7 % 34.1-44.9 MEAN CORPUSCULAR VOLUME (BEAKER) (test hflm=575) 91.5 fL 79.4-94.8 MEAN CORPUSCULAR HEMOGLOBIN (BEAKER) (test 29.0 pg 25.6-32.2 lgsj=871) MEAN CORPUSCULAR HEMOGLOBIN CONC (BEAKER) (test 31.7 GM/DL 32.2-35.5 tphl=500) RED CELL DISTRIBUTION WIDTH (BEAKER) (test 14.2 % 11.7-14.4 dwjy=405) PLATELET COUNT (BEAKER) (test ttcu=031) 208 K/CU MM 150-450 MEAN PLATELET VOLUME (BEAKER) (test aqtg=198) 10.6 fL 9.4-12.3 NUCLEATED RED BLOOD CELLS (BEAKER) (test 0 /100 WBC 0-0 rfgc=298) RAD, CHEST, 1 VIEW, NON [id number] 10:31:00Reason for exam:->S/P EVARShould this be performed at the bedside?->YesFINAL REPORT Chest, one view. HISTORY: Status post aortic repair COMPARISON: 2017 IMPRESSION: No significant change. Unchanged tortuosity and ectasia of the thoracic aorta.Mild interstitial edema. No large pleural effusion or pneumothorax. Signed: Gera Hernandez Verified Date/Time: 04/17/2018 10: 31:41 Reading Location: [facility] C013Y CT Body Reading Room [id number] 06: 43:00 Test Item Value Reference Range Comments PHOSPHORUS (BEAKER) (test cdfw=810) 3.3 mg/dL 2.3-4.7 [id number] 06:43:00 Test Item Value Reference Range Comments MAGNESIUM (BEAKER) (test qjxj=223) 2.0 mg/dL 1.6-2.6 [id number] 06:23:00 Test Item Value Reference Range Comments PARTIAL THROMBOPLASTIN TIME (BEAKER) (test 36.4 seconds 22.5-36.0 fmqm=339) PROTHROMBIN [id number] 06:22:00 Test Item Value Reference Range Comments PROTIME (BEAKER) (test pmqa=474) 17.3 seconds 11.7-14.7 INR (BEAKER) (test sllh=039) 1.4 <=5.9 RECOMMENDED COUMADIN/WARFARIN INR THERAPY RANGESSTANDARD DOSE: 2.0 - 3.0 Includes: PROPHYLAXIS forvenous thrombosis, systemic embolization; TREATMENT for venous thrombosis and/or pulmonary embolus.HIGH RISK: Target INR is 2.5-3.5 for patients with mechanical heart valves.CBC (HEMOGRAM ONLY)2018-04-17 06:13:00 Test Item Value Reference Range Comments WHITE BLOOD CELL COUNT (BEAKER) (test bnsz=315) 13.2 K/ L 3.5-10.5 RED BLOOD CELL COUNT (BEAKER) (test tjvm=276) 3.84 M/ L 3.93-5.22 HEMOGLOBIN (BEAKER) (test ddyf=268) 11.5 GM/DL 11.2-15.7 HEMATOCRIT (BEAKER) (test xuxd=485) 34.9 % 34.1-44.9 MEAN CORPUSCULAR VOLUME (BEAKER) (test yoqm=196) 90.9 fL 79.4-94.8 MEAN CORPUSCULAR HEMOGLOBIN (BEAKER) (test 29.9 pg 25.6-32.2 ixki=310) MEAN CORPUSCULAR HEMOGLOBIN CONC (BEAKER) (test 33.0 GM/DL 32.2-35.5 bpig=382) RED CELL DISTRIBUTION WIDTH (BEAKER) (test 14.0 % 11.7-14.4 szoh=124) PLATELET COUNT (BEAKER) (test vkgw=615) 201 K/CU MM 150-450 MEAN PLATELET VOLUME (BEAKER) (test jpfm=435) 10.6 fL 9.4-12.3 NUCLEATED RED BLOOD CELLS (BEAKER) (test 0 /100 WBC 0-0 kese=414) RAD, CHEST, 1 VIEW, NON [id number] 09:02:00Reason for exam:->S/P EVARShould this be performed [...] Hernandezeport Verified Date/Time: 04/16/2018 09:02:11 Reading Location: [facility] B1 C013Y CT Body Reading Room [id number] 06:11:00 Test Item Value Reference Range Comments PHOSPHORUS (BEAKER) (test cawc=728) 1.9 mg/dL 2.3-4.7 [id number] 06:11:00 Test Item Value Reference Range Comments MAGNESIUM (BEAKER) (test ljus=430) 2.0 mg/dL 1.6-2.6 BASIC METABOLIC [id number] 06:11:00 Test Item Value Reference Range Comments SODIUM (BEAKER) (test 137 meq/L 136-145 klze=839) POTASSIUM (BEAKER) (test 3.2 meq/L 3.5-5.1 snhb=785) CHLORIDE (BEAKER) (test 104 meq/L 98-107 vmhv=572) CO2 (BEAKER) (test 24 meq/L 22-29 ohws=946) BLOOD UREA NITROGEN 7 mg/dL 7-21 (BEAKER) (test spof=857) CREATININE (BEAKER) (test 0.86 mg/dL 0.57-1.25 xydm=568) GLUCOSE RANDOM (BEAKER) 179 mg/dL 70-105 (test dnxw=602) CALCIUM (BEAKER) (test 9.0 mg/dL 8.4-10.2 zodi=162) EGFR (BEAKER) (test 64 mL/min/1.73 sq m ESTIMATED GFR IS NOT hjld=9075) ACCURATE CREATININE CLEARANCE IN PREDICTING GLOMERULAR FILTRATION RATE. ESTIMATED GFR IS NOT APPLICABLE FOR DIALYSIS PATIENTS. [id number] 05:46:00 Test Item Value Reference Range Comments PARTIAL THROMBOPLASTIN TIME (BEAKER) (test 32.0 seconds 22.5-36.0 sycz=808) PROTHROMBIN TIME/[id number] 05:45:00 Test Item Value Reference Range Comments PROTIME (BEAKER) (test erpp=828) 15.0 seconds 11.7-14.7 INR (BEAKER) (test yqgy=320) 1.2 <=5.9 RECOMMENDED COUMADIN/WARFARIN INR THERAPY RANGESSTANDARD DOSE: 2.0 - 3.0 Includes: PROPHYLAXIS forvenous thrombosis, systemic embolization; TREATMENT for venous thrombosis and/or pulmonary embolus.HIGH RISK: Target INR is 2.5-3.5 for patients with mechanical heart valves.CBC (HEMOGRAM ONLY)2018-04-16 05:31:00 Test Item Value Reference Range Comments WHITE BLOOD CELL COUNT (BEAKER) (test eehf=535) 12.0 K/ L 3.5-10.5 RED BLOOD CELL COUNT (BEAKER) (test osvr=730) 4.19 M/ L 3.93-5.22 HEMOGLOBIN (BEAKER) (test lfrt=786) 12.4 GM/DL 11.2-15.7 HEMATOCRIT (BEAKER) (test xofx=212) 38.6 % 34.1-44.9 MEAN CORPUSCULAR VOLUME (BEAKER) (test ythq=040) 92.1 fL 79.4-94.8 MEAN CORPUSCULAR HEMOGLOBIN (BEAKER) (test 29.6 pg 25.6-32.2 sztt=226) MEAN CORPUSCULAR HEMOGLOBIN CONC (BEAKER) (test 32.1 GM/DL 32.2-35.5 qdrc=330) RED CELL DISTRIBUTION WIDTH (BEAKER) (test 14.0 % 11.7-14.4 qvhl=051) PLATELET COUNT (BEAKER) (test tjkp=398) 223 K/CU MM 150-450 MEAN PLATELET VOLUME (BEAKER) (test lriz=288) 10.3 fL 9.4-12.3 NUCLEATED RED BLOOD CELLS (BEAKER) (test 0 /100 WBC 0-0 wktb=080) [id number] 13:56:00 Test Item Value Reference Range Comments ACTIVATED CLOTTING TIME 257 sec TESTED AT [facility] [address] (BEAKER) (test zdvu=450) [place] [address] RAD, ABDOMEN/KUB, 1 VIEW [id number] 12:39:00Reason for exam:->Postop AAAFINAL REPORT CLINICAL HISTORY: [...] GodwinMDReport Verified Date/Time: 2017 12:39:57 Reading Location: [facility] Reading Room RAD, CHEST , 1 VIEW, NON [id number] 12:38:00For chest painReason for exam:->post opShould this be performed at the bedside?->YesFINAL REPORT CLINICAL HISTORY: post op TECHNIQUE: 1 view of the chest. COMPARISON: 04/10/2018 IMPRESSION: There are no focal infiltrates or effusions. Cardiomegaly is again seen with tortuosity of the thoracic aorta. Signed: Hardik Godwin MDReport Verified Date/Time: 04/15/201812:38:40 Reading Location: [facility] Reading Room [id number] 11:51:00 Test Item Value Reference Range Comments PHOSPHORUS (BEAKER) (test wpbf=935) 3.2 mg/dL 2.3-4.7 BASIC METABOLIC [id number] 11:51:00 Test Item Value Reference Range Comments SODIUM (BEAKER) (test 140 meq/L 136-145 pplu=955) POTASSIUM (BEAKER) (test 3.8 meq/L 3.5-5.1 uavd=861) CHLORIDE (BEAKER) (test 109 meq/L 98-107 ojmc=564) CO2 (BEAKER) (test 24 meq/L 22-29 tjmh=268) BLOOD UREA NITROGEN 12 mg/dL 7-21 (BEAKER) (test lnhy=379) CREATININE (BEAKER) (test 0.77 mg/dL 0.57-1.25 iktu=037) GLUCOSE RANDOM (BEAKER) 176 mg/dL 70-105 (test viso=954) CALCIUM (BEAKER) (test 9.7 mg/dL 8.4-10.2 jofp=123) EGFR (BEAKER) (test 73 mL/min/1.73 sq m ESTIMATED GFR IS NOT xvcb=7822) ACCURATE CREATININE CLEARANCE IN PREDICTING GLOMERULAR FILTRATION RATE. ESTIMATED GFR IS NOT APPLICABLE FOR DIALYSIS PATIENTS. CBC W/PLT COUNT & AUTO [id number] 11:23:00 Test Item Value Reference Range Comments WHITE BLOOD CELL COUNT (BEAKER) (test oyyp=499) 12.0 K/ L 3.5-10.5 RED BLOOD CELL COUNT (BEAKER) (test pkjq=411) 3.84 M/ L 3.93-5.22 HEMOGLOBIN (BEAKER) (test jtgo=199) 11.4 GM/DL 11.2-15.7 HEMATOCRIT (BEAKER) (test jjgk=568) 35.7 % 34.1-44.9 MEAN CORPUSCULAR VOLUME (BEAKER) (test uclv=904) 93.0 fL 79.4-94.8 MEAN CORPUSCULAR HEMOGLOBIN (BEAKER) (test 29.7 pg 25.6-32.2 qwbc=742) MEAN CORPUSCULAR HEMOGLOBIN CONC (BEAKER) (test 31.9 GM/DL 32.2-35.5 wlea=825) RED CELL DISTRIBUTION WIDTH (BEAKER) (test 14.1 % 11.7-14.4 nyfh=896) PLATELET COUNT (BEAKER) (test rddd=484) 207 K/CU MM 150-450 MEAN PLATELET VOLUME (BEAKER) (test wfwa=540) 10.7 fL 9.4-12.3 NUCLEATED RED BLOOD CELLS (BEAKER) (test 0 /100 WBC 0-0 zbgp=047) NEUTROPHILS RELATIVE PERCENT (BEAKER) (test 77 % jhpg=348) LYMPHOCYTES RELATIVE PERCENT (BEAKER) (test 15 % vytp=579) MONOCYTES RELATIVE PERCENT (BEAKER) (test 6 % cktt=036) EOSINOPHILS RELATIVE PERCENT (BEAKER) (test 1 % jafs=617) BASOPHILS RELATIVE PERCENT (BEAKER) (test 1 % hbdl=485) NEUTROPHILS ABSOLUTE COUNT (BEAKER) (test 9.14 K/ L 1.56-6.13 view=702) LYMPHOCYTES ABSOLUTE COUNT (BEAKER) (test 1.78 K/ L 1.18-3.74 xqfl=936) MONOCYTES ABSOLUTE COUNT (BEAKER) (test 0.72 K/ L 0.24-0.36 xphb=016) EOSINOPHILS ABSOLUTE COUNT (BEAKER) (test 0.16 K/ L 0.04-0.36 boys=305) BASOPHILS ABSOLUTE COUNT (BEAKER) (test 0.06 K/ L 0.01-0.08 hclk=721) IMMATURE GRANULOCYTES-RELATIVE PERCENT (BEAKER) 1 % 0-1 (test tnvx=7541) PROTHROMBIN TIME/[id number] 11:22:00 Test Item Value Reference Range Comments PROTIME (BEAKER) (test ivmp=159) 15.7 seconds 11.7-14.7 INR (BEAKER) (test nlxp=154) 1.3 <=5.9 RECOMMENDED COUMADIN/WARFARIN INR THERAPY RANGESSTANDARD DOSE: 2.0 - 3.0 Includes: PROPHYLAXIS forvenous thrombosis, systemic embolization; TREATMENT for venous thrombosis and/or pulmonary embolus.HIGH RISK: Target INR is 2.5-3.5 for patients with mechanical heart valves.CALCIUM, [id number] 11:06:00 Test Item Value Reference Range Comments CALCIUM IONIZED (BEAKER) (test essz=413) 1.25 mmol/L 1.12-1.27 PH, BLOOD (BEAKER) (test qefp=8330) 7.37 HEPATITIS C [id number] 15:18:00 Test Item Value Reference Range Comments HEPATITIS C ANTIBODY (BEAKER) (test zbxd=365) Nonreactive Nonreactive HEPATITIS B [id number] 15:18:00 Test Item Value Reference Range Comments HEPATITIS B CORE TOTAL ANTIBODY (BEAKER) (test Nonreactive Nonreactive dphr=984) HEPATITIS B SURFACE ANTIBODY (BEAKER) (test 63.1 mIU/mL <8.0 reha=784) HEPATITIS B SURFACE ANTIGEN (2) (BEAKER) (test Nonreactive Nonreactive rliy=6433) HIV-1 ANTIGEN WITH HIV-1/2 [id number] 15:18:00 Test Item Value Reference Range Comments HIV-1 ANTIGEN WITH HIV 1\T\2 ANTIBODY (2) Nonreactive Nonreactive (BEAKER) (test ypro=8300) [id number] 15:08:00 Test Item Value Reference Range Comments LIPASE (BEAKER) (test iecq=827) 10 U/L 8-78 [id number] 15:08:00 Test Item Value Reference Range Comments AMYLASE (BEAKER) (test kayo=450) 40 U/L 25-125 BASIC METABOLIC [id number] 15:08:00 Test Item Value Reference Range Comments SODIUM (BEAKER) (test 141 meq/L 136-145 mfmy=600) POTASSIUM (BEAKER) (test 3.6 meq/L 3.5-5.1 qrkz=633) CHLORIDE (BEAKER) (test 104 meq/L 98-107 abkh=903) CO2 (BEAKER) (test 27 meq/L 22-29 yqhy=728) BLOOD UREA NITROGEN 12 mg/dL 7-21 (BEAKER) (test cnky=094) CREATININE (BEAKER) (test 0.86 mg/dL 0.57-1.25 atsx=756) GLUCOSE RANDOM (BEAKER) 112 mg/dL 70-105 (test bnjp=468) CALCIUM (BEAKER) (test 9.8 mg/dL 8.4-10.2 yrqr=448) EGFR (BEAKER) (test 64 mL/min/1.73 sq m ESTIMATED GFR IS NOT evjv=0292) ACCURATE CREATININE CLEARANCE IN PREDICTING GLOMERULAR FILTRATION RATE. ESTIMATED GFR IS NOT APPLICABLE FOR DIALYSIS PATIENTS. HEPATIC FUNCTION [id number] 15:08:00 Test Item Value Reference Range Comments TOTAL PROTEIN (BEAKER) (test xmbv=030) 7.1 gm/dL 6.0-8.3 ALBUMIN (BEAKER) (test zrwl=0909) 4.0 g/dL 3.5-5.0 BILIRUBIN TOTAL (BEAKER) (test ikfq=286) 0.4 mg/dL 0.2-1.2 BILIRUBIN DIRECT (BEAKER) (test hwzz=654) 0.2 mg/dL 0.1-0.5 ALKALINE PHOSPHATASE (BEAKER) (test pcce=702) 135 U/L 40-150 AST (SGOT) (BEAKER) (test gpjz=098) 22 U/L 5-34 ALT (SGPT) (BEAKER) (test pkqe=520) 22 U/L 6-55 LACTATE DEHYDROGENASE (LDH)2018-04-14 15:08:00 Test Item Value Reference Range Comments LACTATE DEHYDROGENASE (BEAKER) (test pcrn=740) 238 U/L 125-220 [id number] 14:47:00 Test Item Value Reference Range Comments PARTIAL THROMBOPLASTIN TIME (BEAKER) (test 31.9 seconds 22.5-36.0 vmgz=661) PROTHROMBIN TIME/[id number] 14:46:00 Test Item Value Reference Range Comments PROTIME (BEAKER) (test lodd=802) 14.1 seconds 11.7-14.7 INR (BEAKER) (test ybfb=610) 1.1 <=5.9 RECOMMENDED COUMADIN/WARFARIN INR THERAPY RANGESSTANDARD DOSE: 2.0 - 3.0 Includes: PROPHYLAXIS forvenous thrombosis, systemic embolization; TREATMENT for venous thrombosis and/or pulmonary embolus.HIGH RISK: Target INR is 2.5-3.5 for patients with mechanical heart valves.RETICULOCYTE [id number] 14:36:00 Test Item Value Reference Range Comments RETICULOCYTE COUNT PCT (BEAKER) (test apec=069) 1.0 % 0.5-1.7 CBC W/PLT COUNT & AUTO [id number] 14:36:00 Test Item Value Reference Range Comments WHITE BLOOD CELL COUNT (BEAKER) (test synb=587) 9.3 K/ L 3.5-10.5 RED BLOOD CELL COUNT (BEAKER) (test kspg=055) 4.05 M/ L 3.93-5.22 HEMOGLOBIN (BEAKER) (test ccud=389) 12.2 GM/DL 11.2-15.7 HEMATOCRIT (BEAKER) (test fitg=798) 37.2 % 34.1-44.9 MEAN CORPUSCULAR VOLUME (BEAKER) (test eyvm=228) 91.9 fL 79.4-94.8 MEAN CORPUSCULAR HEMOGLOBIN (BEAKER) (test 30.1 pg 25.6-32.2 thtr=907) MEAN CORPUSCULAR HEMOGLOBIN CONC (BEAKER) (test 32.8 GM/DL 32.2-35.5 cnwc=330) RED CELL DISTRIBUTION WIDTH (BEAKER) (test 14.2 % 11.7-14.4 dujz=383) PLATELET COUNT (BEAKER) (test ioap=972) 259 K/CU MM 150-450 MEAN PLATELET VOLUME (BEAKER) (test gyrz=573) 11.1 fL 9.4-12.3 NUCLEATED RED BLOOD CELLS (BEAKER) (test 0 /100 WBC 0-0 ucrv=866) NEUTROPHILS RELATIVE PERCENT (BEAKER) (test 70 % nnzt=367) LYMPHOCYTES RELATIVE PERCENT (BEAKER) (test 19 % zfej=778) MONOCYTES RELATIVE PERCENT (BEAKER) (test 8 % xtyk=849) EOSINOPHILS RELATIVE PERCENT (BEAKER) (test 2 % jsmk=010) BASOPHILS RELATIVE PERCENT (BEAKER) (test 1 % eeek=593) NEUTROPHILS ABSOLUTE COUNT (BEAKER) (test 6.49 K/ L 1.56-6.13 mmmk=148) LYMPHOCYTES ABSOLUTE COUNT (BEAKER) (test 1.74 K/ L 1.18-3.74 jvuq=156) MONOCYTES ABSOLUTE COUNT (BEAKER) (test 0.78 K/ L 0.24-0.36 oqkq=228) EOSINOPHILS ABSOLUTE COUNT (BEAKER) (test 0.14 K/ L 0.04-0.36 zqkk=962) BASOPHILS ABSOLUTE COUNT (BEAKER) (test 0.07 K/ L 0.01-0.08 sgxf=085) IMMATURE GRANULOCYTES-RELATIVE PERCENT (BEAKER) 0 % 0-1 (test bpzz=3029) URINALYSIS W/ [id number] 14:25:00 Test Item Value Reference Range Comments COLOR (BEAKER) (test barz=133) Yellow CLARITY (BEAKER) (test olyw=901) Clear SPECIFIC GRAVITY UA (BEAKER) (test vzsc=168) 1.010 1.001-1.035 PH UA (BEAKER) (test xnas=400) 6.5 5.0-8.0 PROTEIN UA (BEAKER) (test nonn=621) 20 mg/dL Negative GLUCOSE UA (BEAKER) (test iwxv=357) Negative Negative KETONES UA (BEAKER) (test qsth=612) Negative Negative BILIRUBIN UA (BEAKER) (test qkrl=017) Negative Negative BLOOD UA (BEAKER) (test diqf=842) Negative Negative NITRITE UA (BEAKER) (test gzex=560) Negative Negative LEUKOCYTE ESTERASE UA (BEAKER) (test vtwu=216) Negative Negative UROBILINOGEN UA (BEAKER) (test otyl=951) 0.2 mg/dL 0.2-1.0 RBC UA (BEAKER) (test ibby=565) < /HPF WBC UA (BEAKER) (test dbop=576) < /HPF MUCUS (BEAKER) (test novs=6251) Rare SQUAMOUS EPITHELIAL (BEAKER) (test bkkd=076) < /HPF HYALINE CASTS (BEAKER) (test oboj=998) 4 /LPF SOURCE(BEAKER) (test bukg=6874) RAD, CHEST, 2 [id number] 14:12:00Reason for exam:->surgeryFINAL REPORT Chest, two views HISTORY: Surgery COMPARISON: None. DISCUSSION: Lungs are clear without focal consolidation. Cardiomediastinal silhouette is unremarkable. Tortuosityand ectasia of the thoracic aorta. No acute osseous abnormality. No pleural effusion or pneumothorax. Visualized portions of the upper abdomen are unremarkable. IMPRESSION: No acute cardiopulmonary abnormality. Signed: Gera Hernandez MDReport Verified Date/Time: 04/14/2018 14:12:09 Reading Location: [address] Radiology Reading Room 02:12 PM
--- OUTSIDE RECORDS SUMMARY | 2019-05-29 11:18 | XMS REPORT | Clinical Summary ---
:1940 Author Organization [facility] Address [address] [place] [address] Care Team Providers Name Role Phone Wally Soliman MD Primary Care Provider Raymundo Miller Unavailable Allergies Active Allergy Reactions Severity Noted Date Comments Hydrocodone-Acetaminophen Other (See Comments) 04/13/2018 hyperactivity Lisinopril 04/13/2018 angioedema Butorphanol Tartrate Other (See Comments) 04/14/2018 Hallucinations Qjhxnwz-Clz-Zhm Reductase Other (See Comments) 04/14/2018 Flu like symptoms Inhibitors Medications Medication Sig Dispensed Refills Start Date End Date Status ALPRAZolam (XANAX) 0.5 Take 0.5 mg by 0 Active MG tablet mouth 3 (three) times daily as needed for Anxiety. PARoxetine (PAXIL) 10 Take 10 mg by 0 Active MG tablet mouth every morning. loratadine (CLARITIN) Take 10 mg by 0 Active 10 mg tablet mouth daily. famotidine (PEPCID) 20 Take 20 mg by 0 Active MG tablet mouth daily. triamcinolone 2 sprays by Nasal 0 Active (NASACORT) 55 mcg nasal route daily. inhaler acetaminophen (TYLENOL) Take 2 tablets 30 tablet 0 04/19/2018 Active 325 MG tablet (650 mg total) by mouth every 6 (six) hours as needed for Fever. Active Problems Problem Noted Date Abdominal aortic aneurysm (AAA) 3.0 cm to 5.0 cm in diameter in female 2017 Abdominal aortic aneurysm (AAA) 04/15/2018 At high risk for hemodynamic instability 04/15/2018 Endovascular stent graft for abdominal aortic aneurysm 04/15/2018 Social History Tobacco Use Types Packs/Day Years Used Date Former Smoker Smokeless Tobacco: Never Used Alcohol Use Drinks/Week oz/Week Comments No Sex Assigned at Date Recorded Not on file Job Start Date Occupation Industry Not on file Not on file Not on file Travel History Travel Start Travel End No recent travel history available. Last Filed Vital Signs Not on file Plan of Treatment Not on file Implants Implanted Type [employer] Device Shelf Model / Identifier Expiration Serial / Date Lot [employer] Iliac Aaa Leg 13x90 [id number] - [id number] CV Aneurysm Right: COOK:AORTIC 10/13/2020 [id number] / Implanted: Qty: 1 on 04/15/2018 by Arnaldo Avelar MD Groin INTERVENTION / [id number] Closure Sys Perclose Progl 6fr 69220-11 - [id number] Cardiovascular Left: WANG 11/18/2019 [id number] / Implanted: Qty: 1 on 04/15/2018 by Arnaldo Avelar MD Groin LAB: VASC DEV / [id number] Closure Sys Perclose Progl 6fr 81398-26 - [id number] Cardiovascular Left: WANG 01/18/2020 [id number] / Implanted: Qty: 1 on 04/15/2018 by Arnaldo Avelar MD Groin LAB: VASC DEV / [id number] Closure Sys Perclose Progl 6fr 67607-85 - [id number] Cardiovascular Right: WANG 11/18/2019 [id number] / Implanted: Qty: 1 on 04/15/2018 by Arnaldo Avelar MD Groin LAB: VASC DEV / [id number] Closure Sys Perclose Progl 6fr 72334-51 - [id number] Cardiovascular Right: WANG 11/18/2019 [id number] / Implanted: Qty: 1 on 04/15/2018 by Arnaldo Avelar MD Groin LAB: VASC DEV / [id number] Aaa Endovascular Graft N/A: [employer] 02/27/2020 [id number] / Implanted: Qty: 1 on 04/15/2018 by Arnaldo Avelar MD Groin / [id number] Aaa Iliac Leg Graft Right: [employer] 12/28/2020 [id number] / Implanted: Qty: 1 on 04/15/2018 by Arnaldo Avelar MD Groin / Procedures Procedure Name Priority Date/Time Associated Diagnosis Comments RHYTHM STRIP - SCAN 01/05/2019 9:21 AM CDT after 05/28/2018 Results RHYTHM STRIP - SCAN (01/05/2019 9:21 AM CDT) Narrative Performed At after 05/28/2018 Insurance Payer Benefit Plan / Group Subscriber ID Type Phone Address MEDICARE MEDICARE A B xxxxxxxxxx Medicare MCR SUPPLEMENT/[employer] xxxxxxxx Med[employer] Advance Directives For more information, please contact:[address] [phone] Code Status Date Activated Date Inactivated Comments Full Code 04/15/2018 10:55 AM 04/19/2018 6:23 PM This code status was determined by: Patient Full Code 04/15/2018 6:03 AM 04/15/2018 10:55 AM This code status was determined by: Patient
[2019-05-29 11:34] LABS: Absolute Lymphocytes (CBC) 1.2 K/uL (0.7-4.9); Basophils % 0.5 % (0-1.3); Hematocrit 35.2 % (36.0-45.0); Lymphocytes % 8.4 % (15.3-44.8); RBC Red Blood Cell Count 4.51 M/uL (3.86-4.86)
[2019-05-29] MEDS ORDERED: NA CHLORIDE 0.9% 1,000 ML ONE (11:53)
[2019-05-29 11:54] LABS: Albumin 3.3 g/dL (3.4-5.0); Bilirubin Direct 0.1 mg/dL (0-0.2); Bilirubin Total 0.5 mg/dL (0.2-1.0); Potassium 3.7 mmol/L (3.5-5.1); Protein, Total 7.8 g/dL (6.4-8.2)
--- NOTE | 2019-05-29 12:35 | RAD REPORT ---
EXAM DESCRIPTION: RAD - Shoulder Right 2 View - 05/29/2019 12:24 pm CLINICAL HISTORY: PAIN COMPARISON: No comparisons FINDINGS: No fracture or dislocation evident.
--- NOTE | 2019-05-29 12:37 | RAD REPORT ---
EXAM DESCRIPTION: CT - Abdomen Pelvis W Contrast - 05/29/2019 12:21 pm CLINICAL HISTORY: left sided abd pain, prior hysterectomy COMPARISON: CT imaging December 2018 TECHNIQUE: Biphasic, helical CT imaging of the abdomen and pelvis was performed following 100 ml non -ionic IV contrast. No oral contrast administered. All CT scans are performed using dose optimization technique as appropriate and may include automated exposure control or mA/KV adjustment according to patient size. FINDINGS: No suspicious findings in the lung bases. The liver, spleen, and pancreas show no suspicious findings. Gallbladder and biliary tree are also wi thout suspicious finding. Symmetric renal function is seen with no hydronephrosis or suspicious renal mass. No pyelonephritis o r acute parenchymal process. No bladder abnormalities. No adrenal abnormalities. Liver and renal cysts are stable from prior imaging. No gastric dilatation or gastric wall thickening. No acute small bowel finding. Colon is not dilated. Sigmoid is tortuous. No diverticulitis or acute left lower quadrant finding. December study showed poss ible posterior rectal wall mass near the anus. This portion of the colon is decompressed on today's s tudy limiting comparison. There is a questionable polypoid mass. No perirectal stranding or edema. No free air, free fluid or inflammatory stranding. No hernia, mass or bulky lymphadenopathy. Disc and bony degenerative changes are present. No acute bone process. Dilation of the distal descending thoracic aorta has not changed over the short interval. Aortoiliac endovascular graft is in place. Stent lumen is patent. Prior imaging showed suspected endoleak near t he aortic and iliac stent junction. That endoleak is not identifiable on the current examination. IMPRESSION: No diverticulitis or other abnormality to explain left lower quadrant pain symptoms. No acute or GI process identifiable. Suspected posterior rectal wall mass near the anus on the December examination is not as well defined. T here is questionable polypoid mass. If the December finding has not already been addressed, follow-up p roctoscopy/sigmoidoscopy could be performed. The suspected endoleak at the aortoiliac junction of the patient's endovascular stenting seen December 20 is not evident on the current examination.
[2019-05-29 13:01] LABS: Urine Blood 1+ (NEG); Urine Glucose 2+ (NEG); Urine Protein 2+ (NEG)
--- NOTE | 2019-05-29 14:19 | ER ---
Nurse's Notes [facility] Name: Syl Sheikh Age: 79 yrs Sex: Female : 1940 Arrival Date: 05/29/2019 Time: 10:56 Bed 18 Private MD: Diagnosis: Weakness;Near syncope;Osteoarthritis, unspecified site Presentation: 05/29 10:56 Presenting complaint: EMS states: GENERALIZED WEAKNESS SINCE WEDNESDAY. Transition of bp care: patient was not received from another setting of care. Onset of symptoms is unknown. Risk Assessment: Do you want to hurt yourself or someone else? Patient reports no desire to harm self or others. Initial Sepsis Screen: Does the patient meet any 2 criteria? No. Patient's initial sepsis screen is negative. Does the patient have a suspected source of infection? No. Patient's initial sepsis screen is negative. Care prior to arrival: Glucose check: 263. 10:56 Method Of Arrival: EMS: [facility] bp 10:56 Acuity: MP 3 bp Triage Assessment: 10:59 General: Appears in no apparent distress. uncomfortable, Behavior is cooperative, bp appropriate for age, anxious. Pain: Complains of pain in anterior aspect of right shoulder. EENT: No deficits noted. Neuro: No deficits noted. Cardiovascular: No deficits noted. Respiratory: No deficits noted. GI: No signs and/or symptoms were reported involving the gastrointestinal system. : No signs and/or symptoms were reported regarding the genitourinary system. Derm: No deficits noted. Musculoskeletal: No deficits noted. Historical: - Allergies: 10:59 butorphanol tartrate; bp 10:59 Codeine; bp 10:59 Hydrocodone-Acetaminophen; bp 10:59 Lisinopril; bp 10:59 Stadol; bp 10:59 statin drugs; bp - Home Meds: 10:59 paroxetine Oral [Active]; Alprazolam Oral [Active]; pentoxifylline oral oral [Active]; bp pantoprazole oral oral [Active]; - PMHx: 10:59 TIA; Hypertension; CVA; abdominal aortic aneurysm; Diabetes - NIDDM; GERD; bp - Immunization history:: Adult Immunizations up to date. - Social history:: Smoking status: Patient/guardian denies using tobacco. - Ebola Screening: : No symptoms or risks identified at this time. - Family history:: not pertinent. - Hospitalizations: : No recent hospitalization is reported. Screenin:01 Abuse screen: Denies threats or abuse. Denies injuries from another. Nutritional bp screening: No deficits noted. Tuberculosis screening: No symptoms or risk factors identified. Fall Risk None identified. Assessment: 11:00 General: SEE TRIAGE NOTE. bp 12:15 Reassessment: PT TO CT. bp 12:28 Reassessment: PT RETURNED FROM CT. bp 13:00 Reassessment: ALL CURRENT ORDERS COMPLETED, RESULTS PENDING. bp 14:00 Reassessment: PT OUT OF BED TO B/S COMMODE. bp 14:54 Reassessment: PT DECLINING DISCHARGE, NOTIFIED. bp 15:25 Reassessment: AFTER C/S WITH PCP, ADMIT IN PROCESS. bp Vital Signs: 10:57 BP 157 / 62; Pulse 70; Resp 15; Temp 97.7; Pulse Ox 96% ; Weight 68.04 kg; bp 12:03 BP 175 / 114; Pulse 90; Resp 16; Pulse Ox 99% ; bp 12:56 BP 191 / 93; Pulse 87; Resp 18; Temp 98.0(O); Pulse Ox 100% on R/A; mh5 13:58 BP 199 / 97; Pulse 86; Resp 18; Temp 97.9(O); Pulse Ox 100% on R/A; mh5 16:00 BP 185 / 95; Pulse 87; Resp 17; Temp 97.8; Pulse Ox 100% ; bp ED Course: 10:56 Patient arrived in ED. bp 10:57 Triage completed. bp 10:57 Arm band placed on. bp 11:01 Patient has correct armband on for positive identification. Bed in low position. Call bp light in reach. Side rails up X2. 11:02 Gregg Silvestre MD is Attending Physician. rn 11:04 Rico Riley, MIRIAM is Primary Nurse. bp 11:16 EKG done, by medical instrument technician. reviewed by Gregg Silvestre MD. at1 11:20 Inserted saline lock: 22 gauge in right antecubital area, using aseptic technique. ss Blood collected. 12:22 CT Abd/Pelvis - IV Contrast Only In Process Unspecified. EDMS 12:25 XRAY Shoulder RIGHT 2 view In Process Unspecified. EDMS 15:19 Wally Soliman MD is Hospitalizing Provider. rn 16:20 No provider procedures requiring assistance completed. Patient admitted, IV remains in bp place. Administered Medications: 11:20 Drug: NS 0.9% 500 ml Route: IV; Rate: bolus; Site: right antecubital; bp 15:26 Follow up: IV Status: Completed infusion; IV Intake: 500ml bp Intake: 15:26 IV: 500ml; Total: 500ml. bp Outcome: 14:18 Discharge ordered by MD. rn 15:20 Decision to Hospitalize by Provider. rn 16:20 Admitted to Med/surg accompanied by tech, family with patient, via wheelchair, room bp 205, with chart, Report called to AMARI RN 16:20 Condition: stable 16:20 Instructed on the need for admit. 16:26 Patient left the ED. bp Signatures: Dispatcher [employer] EDMS Gregg Silvestre MD MD rn Smirch, Shelby, RN RN ss Nancy Stacy, sharepoint administrator EKG Tat1 Allison Julien 5 Rico Riley RN RN bp Corrections: (The following items were deleted from the chart) 11:05 10:57 Temp 97.7F; 68.04 kg; bp bp
--- NOTE | 2019-05-29 14:20 | EDPHYS ---
Physician Documentation [facility] Name: Syl Sheikh Age: 79 yrs Sex: Female : 1940 Arrival Date: 05/29/2019 Time: 10:56 Bed 18 Private MD: ED Physician Gregg Silvestre HPI: 05/29 13:29 This 79 yrs old Female presents to ER via EMS with complaints of General rn Weakness. 13:29 The patient or guardian complains of pain. right shoulder. Onset: The symptoms/episode rn began/occurred at an unknown time. Modifying factors: the symptoms are alleviated by nothing. The symptoms are aggravated by movement, rotation of arm. Severity of symptoms: At their worst the symptoms were mild, in the emergency department the symptoms are unchanged. The patient has experienced similar episodes in the past. Reports pain to right shoulder, states has been aching for some time, no injury, no fever, has been hurting more for last few days. NO chest pain/sob/cough. Reports chronic left sided abd pain. No GI bleeding or dark stool. NO fall. . Historical: - Allergies: 10:59 butorphanol tartrate; bp 10:59 Codeine; bp 10:59 Hydrocodone-Acetaminophen; bp 10:59 Lisinopril; bp 10:59 Stadol; bp 10:59 statin drugs; bp - Home Meds: 10:59 paroxetine Oral [Active]; Alprazolam Oral [Active]; pentoxifylline oral oral [Active]; bp pantoprazole oral oral [Active]; - PMHx: 10:59 TIA; Hypertension; CVA; abdominal aortic aneurysm; Diabetes - NIDDM; GERD; bp - Immunization history:: Adult Immunizations up to date. - Social history:: Smoking status: Patient/guardian denies using tobacco. - Ebola Screening: : No symptoms or risks identified at this time. - Family history:: not pertinent. - Hospitalizations: : No recent hospitalization is reported. ROS: 13:29 Constitutional: Negative for fever, chills, and weight loss, Eyes: Negative for injury, rn pain, redness, and discharge, Neck: Negative for injury, pain, and swelling, Cardiovascular: Negative for chest pain, palpitations, and edema, Respiratory: Negative for shortness of breath, cough, wheezing, and pleuritic chest pain, Abdomen/GI: Negative for nausea, vomiting, diarrhea, and constipation, MS/Extremity: + right shoulder pain Skin: Negative for injury, rash, and discoloration, Neuro: Negative for headache, weakness, numbness, tingling, and seizure. Exam: 13:29 Constitutional: This is a well developed, well nourished patient who is awake, alert, rn and in no acute distress. Head/Face: Normocephalic, atraumatic. ENT: MMM Neck: Trachea midline, no thyromegaly or masses palpated, and no cervical lymphadenopathy. Supple, full range of motion without nuchal rigidity, or vertebral point tenderness. No Meningismus. Cardiovascular: Regular rate and rhythm. No pulse deficits. Respiratory: Lungs have equal breath sounds bilaterally, clear to auscultation. No increased work of breathing, no retractions or nasal flaring. Abdomen/GI: soft, mild left sided tenderness, no rebound MS/ Extremity: Pulses equal, no cyanosis. Neurovascular intact. Painful ROM right shoulder with active ROM, no swelling, no erythema, no warmth. NO bony tenderness or deformity. Neuro: Awake and alert, GCS 15, oriented to person, place, time, and situation. Cranial nerves II-XII grossly intact. Motor strength 5/5 in all extremities. Sensory grossly intact. Cerebellar exam normal. Vital Signs: 10:57 BP 157 / 62; Pulse 70; Resp 15; Temp 97.7; Pulse Ox 96% ; Weight 68.04 kg; bp 12:03 BP 175 / 114; Pulse 90; Resp 16; Pulse Ox 99% ; bp 12:56 BP 191 / 93; Pulse 87; Resp 18; Temp 98.0(O); Pulse Ox 100% on R/A; mh5 13:58 BP 199 / 97; Pulse 86; Resp 18; Temp 97.9(O); Pulse Ox 100% on R/A; mh5 16:00 BP 185 / 95; Pulse 87; Resp 17; Temp 97.8; Pulse Ox 100% ; bp MDM: 11:02 Patient medically screened. rn 14:15 Differential diagnosis: DJD, tendonitis. Data reviewed: vital signs, nurses notes, cardiac cath lab technologist test result(s), radiologic studies, CT scan, plain films, and as a result, I will discharge patient. Test interpretation: by ED physician or midlevel provider: plain radiologic studies, Xray right shoulder negative for acute fracture/dislocation. Counseling: I had a detailed discussion with the patient and/or guardian regarding: the historical points, exam findings, and any diagnostic results supporting the discharge/admit diagnosis, lab results, radiology results, the need for outpatient follow up, to return to the emergency department if symptoms worsen or persist or if there are any questions or concerns that arise at home. Response to treatment: the patient's symptoms have markedly improved after treatment, and as a result, I will discharge patient. Special discussion: I discussed with the patient/guardian in detail that at this point there is no indication for admission to the hospital. It is understood, however, that if the symptoms persist or worsen the patient needs to return immediately for re-evaluation. Based on the history and exam findings, there is no indication for further emergent testing or inpatient evaluation. I discussed with the patient/guardian the need to see the primary care provider for further evaluation of the symptoms. ED course: Pt continues to decline pain meds, states doesn't do well with them. Talked to her at length about negative studies, turns out had been having left shoulder pain for sometime, has been over compensating with right shoulder and has osteoarthritis. No new injury. Normal ct abdomen and shoulder xray. Ambulatory, feels better, states prefers just regular motrin/aleve at home, will dc home with Dr. Soliman f/u. . 15:17 ED course: Patient went from pleasant and agreeing to discharge to refusing to leave, rn called family, and became upset. Spoke with Rashaad Soliman, states has happened before, usually gets better with fluids and steroids and then goes home. Will admit to Dr. Soliman for further care. . 05/29 11:04 Order name: Basic Metabolic Panel; Complete Time: 12:06 rn 05/29 11:04 Order name: CBC with Diff; Complete Time: 12:06 rn 05/29 11:04 Order name: Creatinine for Radiology; Complete Time: 12:06 rn 05/29 11:04 Order name: Hepatic Function; Complete Time: 12:06 rn 05/29 11:04 Order name: Lipase; Complete Time: 12:06 rn 05/29 12:47 Order name: Urine Dipstick--Ancillary (enter results); Complete Time: 13:16 bd 05/29 11:04 Order name: IV Start; Complete Time: 11:20 rn 05/29 11:04 Order name: Labs collected and sent; Complete Time: 11:20 rn 05/29 11:04 Order name: XRAY Shoulder RIGHT 2 view; Complete Time: 12:52 rn 05/29 11:04 Order name: CT Abd/Pelvis - IV Contrast Only; Complete Time: 12:52 rn 05/29 11:04 Order name: EKG; Complete Time: 11:06 rn 05/29 11:04 Order name: EKG - Nurse/Tech; Complete Time: 11:12 rn Administered Medications: 11:20 Drug: NS 0.9% 500 ml Route: IV; Rate: bolus; Site: right antecubital; bp 15:26 Follow up: IV Status: Completed infusion; IV Intake: 500ml bp Disposition: 05/29/19 15:20 Hospitalization ordered by Wally Soliman for Observation. Preliminary diagnosis are Weakness, Near syncope, Osteoarthritis, unspecified site. - Bed requested for Telemetry/MedSurg (observation). - Status is Observation. bp - Condition is Stable. - Problem is new. - Symptoms have improved. UTI on Admission? No Signatures: Dispatcher [employer] EDMS Charis Dwyer Roman, MD MD rn Peltier, Brian, RN RN bp Corrections: (The following items were deleted from the chart) 15:19 14:18 05/29/2019 14:18 Discharged to Home. Impression: Pain in right shoulder; Strain rn of muscle(s) and tendon(s) of the rotator cuff of right shoulder; Tendinitis. Condition is Stable. Forms are Medication Reconciliation Form, Thank You Letter, Antibiotic Education, Prescription Opioid Use. Follow up: Private Physician; When: As needed; Reason: Recheck today's complaints, Re-evaluation by your physician. Problem is an ongoing problem. Symptoms have improved. rn 15:56 15:20 Hospitalization Ordered by Wally Soliman MD for Observation. Preliminary bd diagnosis is Weakness; Near syncope; Osteoarthritis, unspecified site. Bed requested for Telemetry/MedSurg (observation). Status is Observation. Condition is Stable. Problem is new. Symptoms have improved. UTI on Admission? No. rn 16:26 15:56 05/29/2019 15:20 Hospitalization Ordered by Wally Soliman MD for Observation. bp Preliminary diagnosis is Weakness; Near syncope; Osteoarthritis, unspecified site. Bed requested for Telemetry/MedSurg (observation). Status is Observation. Condition is Stable. Problem is new. Symptoms have improved. UTI on Admission? No. bd
--- NOTE | 2019-05-29 16:56 | EKG ---
Test Date: 2019-05-29 Test Time: 11:15:18 Strategic Sourcing Consultant: MORAIMA MEASUREMENT RESULTS: Intervals: Rate: 81 AK: 196 QRSD: 78 QT: 384 QTc: 446 [place]: P: 47 AK: 196 QRS: -11 T: 69 INTERPRETIVE STATEMENTS: Normal sinus rhythm Septal infarct, age undetermined Inferior infarct, age undetermined Abnormal ECG Compared to ECG 03/27/2019 15:44:49 No significant changes Electronically Signed On 05-29-19 16:55:13 CDT by Nadeem Swenson
[2019-05-29] MEDS ORDERED: dexAMETHasone 4 MG/ML VIAL IV SCH (17:00)
[2019-05-29] MEDS: NA CHLORIDE 0.9% 1,000 ML IV SCH (17:27)
[2019-05-29 17:50] VITALS: BMI 19.4
[2019-05-29] MEDS: PENTOXIFYLLINE ER 400 MG TAB PO SCH (20:29)
[2019-05-29] MEDS: ALPRAZOLAM 0.5 MG TABLET PO SCH (20:30)
[2019-05-29] MEDS: SIMETHICONE 125 MG TAB PO SCH (21:00)
[2019-05-29] MEDS ORDERED: GLUCAGON 1 MG/VIAL IM PRN (21:17)
[2019-05-29] MEDS ORDERED: D50W 25 GM/50 ML SYRINGE IV PRN (21:17)
[2019-05-29 22:23] LABS: Urine Appearance CLEAR; Urine Bilirubin NEGATIVE (NEG); Urine Blood 1+ (NEG); Urine Color YELLOW; Urine Glucose 3+ (NEG); Urine Protein 2+ (NEG); Urine Specific Gravity 1.025 (1.005-1.030); Urine Urobilinogen 0.2 mg/dL (0.2-1.0)
[2019-05-29 22:24] LABS: Urine Microscopic Reflex ORDER UMIC
[2019-05-29 23:46] LABS: Urine Bacteria <20 /HPF (<20); Urine Culture Reflex Order REFLEXED; Urine RBC <5 /HPF (NONE SEEN)
[2019-05-29] MEDS: INSULIN -REGULAR HUMAN 50 UNIT/0.5 ML ML SQ SCH (23:49)
[2019-05-30] MEDS ORDERED: INSULIN -REGULAR HUMAN 50 UNIT/0.5 ML ML SQ SCH
[2019-05-30] MEDS: INSULIN -REGULAR HUMAN 50 UNIT/0.5 ML ML SQ SCH ×5 (04:00→20:22)
[2019-05-30] MEDS: NA CHLORIDE 0.9% 1,000 ML IV SCH (04:02)
[2019-05-30] MEDS: PANTOPRAZOLE 40MG TABLET PO SCH (09:15)
[2019-05-30] MEDS: PARoxetine HCl 10 MG TAB PO SCH (09:16)
[2019-05-30] MEDS: PENTOXIFYLLINE ER 400 MG TAB PO SCH ×2 (09:16→20:21)
[2019-05-30] MEDS: SIMETHICONE 125 MG TAB PO SCH ×3 (09:16→20:20)
[2019-05-30] MEDS: MULTIVITAMIN TAB PO SCH (09:19)
[2019-05-30] MEDS ORDERED: NA CHLORIDE 0.9% 1,000 ML IV SCH (11:00)
[2019-05-30] MEDS: ALPRAZOLAM 0.5 MG TABLET PO SCH (20:21)
[2019-05-31 07:18] VITALS: O2SAT 97
[2019-05-31] MEDS: INSULIN -REGULAR HUMAN 50 UNIT/0.5 ML ML SQ SCH ×2 (07:30→11:30)
[2019-05-31] MEDS: PANTOPRAZOLE 40MG TABLET PO SCH (09:19)
[2019-05-31] MEDS: SIMETHICONE 125 MG TAB PO SCH ×2 (09:19→13:02)
[2019-05-31] MEDS: MULTIVITAMIN TAB PO SCH (09:20)
[2019-05-31] MEDS: PENTOXIFYLLINE ER 400 MG TAB PO SCH (09:20)
[2019-05-31] MEDS: PARoxetine HCl 10 MG TAB PO SCH (09:20)
[2019-05-31] MEDS ORDERED: cloNIDine HCl 0.1 MG TAB PO ONE (12:21)
[2019-05-31 17:35] VITALS: BP 153/90; TEMP 97.1
--- NOTE | 2019-06-01 00:08 | PN ---
Date of Progress Note: 05/30/2019 Patient states she feels somewhat better today, significant factor has been a marked elevation of her blood sugar, which she feel is secondary to the Decadron shot, however, this did help her joints in generalized weakness. She does have according to her baseline sugars in the 170 range and it did spi ke to 440. Once the Decadron was cleared from her system, her blood sugars dropped back down. Physi pura therapy was instituted and she probably will be discharged in the morning assuming that her sugar remains stable and she is adequately mobilized. HR/MODL Voice ID: [id number] Report ID: [id number]
--- NOTE | 2019-06-02 09:43 | PN ---
Date of Progress Note: 05/31/2019 Patient continues to improve. She is up and about with some difficulty, much better, however, than paco miller she was admitted. Her blood sugars and vital signs are otherwise stable. Her blood pressure was slightly elevated, and the clonidine was used to control this with p.o. in addition to the patch. S he was discharged in fair condition to follow up with myself and the suggestion is to see the neurolo gist. Obviously suffering from a posttraumatic stress syndrome and the use of Wellbutrin in addition to her Paxil was recommended by outside psychiatrist and she was given a prescription for this as we ll. She will be followed up by me in 1 week. /VINICIO Voice ID: [id number] Report ID: [id number]
--- NOTE | 2019-06-02 09:43 | HP ---
Date of Admission: 05/29/2019 Entrance Complaint: General malaise and inability to mobilize, right shoulder pain. History Of Present Illness: Patient presented to the emergency room with the above outlined symptoms . Patient has had numerous variable joint and general malaise problems over the past year, however, since an incident of police action in her home occurred a number of months ago, her symptoms have nickolas matically increased, including she has increased stress incontinence, inability to sleep anorexia. S he has been tried on various medications and worked up on numerous occasions with no specific underly ing diagnosis. Past History: Patient has had TIA and AAA within the past 2 years as far as the cardiovascular syste m is concerned and neurologically there is has been a variability in her mobility as well from using a walker to basically being bed ridden for periods. Steroids have helped in the past on an intermitt ent basis. Hypertension, controlled on medication and IDDM, controlled on diet. Social History: Patient is a nonsmoker, nondrinker, is under considerable stress obviously under fam andrea situation. Physical Examination: General: Patient is a thin elderly female, orientated. Vital Signs: Stable. Head and Neck: Normocephalic. Pupils equal and reactive to light and accommodation. Fundi negative. Trachea midline. Thyroid not palpable. ENT: Negative. Chest: Clear to P and A. Cardiovascular: PMI in midclavicular line. Heart sounds normal. Peripheral pulses are present and equal bilaterally. Abdomen: No organomegaly. Bowel sounds are present. Extremities: Good tone and movement bilaterally. Reflexes physiologic. Slight decreased movement o f the shoulders in all directions. Rectal/Pelvic: Deferred. Impression: Posttraumatic stress syndrome with somatic symptoms, [id number] diabetes kayode itus, controlled on diet, hypertension, controlled on medication. Plan: Patient will be admitted, was somewhat dehydrated in the ER, placed on IV fluids. Sugars will be monitored. Blood pressure will be monitored and depending on further lab results other tests and procedures may be indicated. HR/MODL Voice ID: [id number]
[2019-06-03] MEDS ORDERED: CLONIDINE 0.2 MG/PATCH TD SCH (20:00)
== END 2019-05-31 17:18 | disposition home health service (06) ==
LOC: ER 10:53 → ERHOLD 15:35 → 2ND 16:20
PROVIDERS: ADMIT Family Medicine; ATTEND Family Medicine
DX: F43.10 Post-traumatic stress disorder, unspecified (principal); F45.8 Other somatoform disorders; E11.9 Type 2 diabetes mellitus without complications; I10 Essential (primary) hypertension; E86.0 Dehydration; M19.90 Unspecified osteoarthritis, unspecified site
CPT/HCPCS: 96361; 93005; 87088; 85025; 87086; 80048; 36415; 82962 ×10; 80076; 83690; 74177; 73030; 97116 ×2; 97161; 97530; 96360; 99285; Q9967; G0378 ×5; J7030 ×3; 81003; 81015

== ENCOUNTER 2019-06-25 12:30 | Emergency (ER) | payer OTHER ==
[2019-06-25] MEDS ORDERED: NA CHLORIDE 0.9% 1,000 ML ONE (13:13)
[2019-06-25 13:32] LABS: Absolute Lymphocytes (CBC) 0.9 K/uL (0.7-4.9); Basophils % 0.6 % (0-1.3); Hematocrit 36.4 % (36.0-45.0); Lymphocytes % 7.8 % (15.3-44.8); MPV 7.7 fL (7.6-11.3); RBC Red Blood Cell Count 4.78 M/uL (3.86-4.86)
[2019-06-25 13:42] LABS: Urine Blood TRACE (NEG); Urine Glucose NEGATIVE (NEG); Urine Protein 2+ (NEG); Urine Specific Gravity 1.015 (1.005-1.030); Urine pH 7.5 (5.0-7.0)
[2019-06-25 13:45] LABS: Potassium 3.9 mmol/L (3.5-5.1)
--- NOTE | 2019-06-25 13:50 | RAD REPORT ---
EXAM DESCRIPTION: CT - [id number] - 06/25/2019 1:28 pm CLINICAL HISTORY: Fall, head and neck injury COMPARISON: None. TECHNIQUE: Axial 5 mm thick images of the head were obtained. Axial 2 mm thick images of the cervic al spine were obtained with sagittal and coronal reconstruction images generated and reviewed. All CT scans are performed using dose optimization technique as appropriate and may include automated exposure control or mA/KV adjustment according to patient size. FINDINGS: No intracranial hemorrhage, mass, edema or acute intracranial finding. No acute cortical based infarc tion. Advanced atrophy and chronic ischemic changes are present. Ventricles are in proportion to volu me loss. Arterial calcifications present. Bold Mastoid air cells and paranasal sinuses are clear. No globe or orbit abnormality seen. Cervical body height and alignment are normal. C4-5, C5-6 and C6-7 disc space narrowing present. No f racture or acute bony abnormality. Bony degenerative changes seen. No significant degree of foraminal stenosis. No central spinal stenosis. No paraspinal mass or hematoma. IMPRESSION: Advanced atrophy and chronic ischemic change with no acute intracranial finding. Moderate severity cervical spine degenerative change without acute finding.
[2019-06-25 13:53] LABS: Urine Amorphous Sediment 2+ /HPF (NONE SEEN); Urine Bacteria <20 /HPF (<20); Urine Culture Reflex Order NOT NEEDED; Urine RBC <5 /HPF (NONE SEEN)
[2019-06-25] MEDS ORDERED: cloNIDine HCl 0.1 MG TAB ONE (14:47)
--- NOTE | 2019-06-25 16:18 | RAD REPORT ---
EXAM DESCRIPTION: RAD - Pelvis - 06/25/2019 1:48 pm CLINICAL HISTORY: Fall, pelvic pain, hip pain COMPARISON: None. TECHNIQUE: AP imaging of the pelvis was obtained. FINDINGS: No fracture of the bony pelvis. No fracture or dislocation of either proximal femur. No silverio spicious soft tissue finding. Aorto iliac endovascular stents are in place. IMPRESSION: No pelvic fracture. No acute bone or joint finding.
--- NOTE | 2019-06-25 16:20 | RAD REPORT ---
EXAM DESCRIPTION: RAD - Chest Single View - 06/25/2019 1:48 pm CLINICAL HISTORY: Fall, chest pain COMPARISON: February 06 TECHNIQUE: AP portable chest image was obtained 1337 hours . FINDINGS: No pulmonary contusion, pleural fluid collection or pneumothorax. Interstitial pattern mat ches comparison. Heart size is normal. Widened mediastinum from tortuous aorta again noted. This vasc ular tortuosity does limit mediastinal assessment. Pattern is stable from prior imaging. No measurabl e pleural effusion and no pneumothorax. No acute bony abnormality seen. No acute aortic findings susp ected. IMPRESSION: No acute cardiopulmonary process. No significant change from January 2019.
--- NOTE | 2019-06-25 16:21 | RAD REPORT ---
EXAM DESCRIPTION: RAD - Sacrum And Coccyx - 06/25/2019 1:55 pm CLINICAL HISTORY: Fall, pelvic pain COMPARISON: Spine February 2019 FINDINGS: SI joint degenerative changes are present. No acute sacral or coccyx fracture identified. Positioning of the sacrum and coccygeal segments have not changed. No lytic, sclerotic or expansile b bear changes. Lower lumbar facet degenerative change present. IMPRESSION: Sacrum and coccyx imaging showing no fracture or acute finding.
--- NOTE | 2019-06-25 16:22 | RAD REPORT ---
EXAM DESCRIPTION: RAD - Elbow Left 3 View - 06/25/2019 1:48 pm CLINICAL HISTORY: Fall, elbow pain COMPARISON: None. FINDINGS: No fracture is identified and no elevated posterior fat pad. There is no dislocation or pe riosteal reaction noted. No foreign body or other soft tissue abnormality. IMPRESSION: Negative left elbow examination.
--- NOTE | 2019-06-25 16:55 | EDPHYS ---
Physician Documentation [facility] Name: Syl Sheikh Age: 79 yrs Sex: Female : 1940 Arrival Date: 06/25/2019 Time: 12:31 Bed 8 Private MD: ED Physician Gregg Silvestre HPI: 06/25 13:05 This 79 yrs old Female presents to ER via EMS with complaints of Fall Injury. rn 13:05 Onset: The symptoms/episode began/occurred this morning. Associated injuries: The rn patient sustained left elbow. Severity of symptoms: At their worst the symptoms were mild, in the emergency department the symptoms are unchanged. The patient has experienced similar episodes in the past. Son called 911 because possible of possible fall, was in bed with scrape to left elbow, patient does not remember events or if she even fell. Seen here recently for worsening dementia and generalized weakness. No focal neurological problems. Patient reports headache and coccyx pain. . Historical: - Allergies: 12:42 butorphanol tartrate; ae4 12:42 Codeine; ae4 12:42 Hydrocodone-Acetaminophen; ae4 12:42 Lisinopril; ae4 12:42 Stadol; ae4 12:42 statin drugs; ae4 - Home Meds: 12:42 Alprazolam Oral [Active]; pantoprazole Oral [Active]; paroxetine Oral [Active]; ae4 pentoxifylline Oral [Active]; - PMHx: 12:42 abdominal aortic aneurysm; CVA; Diabetes - NIDDM; GERD; Hypertension; TIA; ae4 - Immunization history:: Adult Immunizations up to date. - Immunization history: Last tetanus immunization: - up to date. - Family history:: not pertinent. - Social history:: Smoking status: Patient/guardian denies using tobacco. - Ebola Screening: : No symptoms or risks identified at this time. - Hospitalizations: : The patient was recently seen at [facility]. ROS: 13:05 Constitutional: Negative for fever, chills, and weight loss, Eyes: Negative for injury, rn pain, redness, and discharge, Neck: Negative for injury, and swelling, Cardiovascular: Negative for chest pain, palpitations, and edema, Respiratory: Negative for shortness of breath, cough, wheezing, and pleuritic chest pain, Abdomen/GI: Negative for abdominal pain, nausea, vomiting, diarrhea, and constipation, Back: + coccyx pain : Negative for injury, bleeding, discharge, and swelling, MS/Extremity: Negative for injury and deformity, Skin: Negative for injury, rash, and discoloration, Neuro: + headache Exam: 13:05 Constitutional: This is a well developed, well nourished patient who is awake, alert, rn and in no acute distress. Seems anxious. Head/Face: Normocephalic, atraumatic. ENT: dry MM Neck: Trachea midline, no thyromegaly or masses palpated, and no cervical lymphadenopathy. Supple, full range of motion without nuchal rigidity, or vertebral point tenderness. No Meningismus. Chest/axilla: Normal chest wall appearance and motion. Nontender with no deformity. Cardiovascular: Tachycardic, regular, No pulse deficits. Respiratory: Lungs have equal breath sounds bilaterally, clear to auscultation. No increased work of breathing, no retractions or nasal flaring. Abdomen/GI: soft, non-tender MS/ Extremity: Pulses equal, no cyanosis. Neurovascular intact. Full, normal range of motion. Equal circumference. Neuro: Awake and alert, GCS 15, oriented to person, place, time, and situation. Cranial nerves II-XII grossly intact. Motor strength 5/5 in all extremities. Sensory grossly intact. Cerebellar exam normal. Vital Signs: 12:42 BP 157 / 117; Pulse 118; Resp 17; Temp 97.7(O); Pulse Ox 99% ; Weight 52.16 kg (R); ae4 13:00 BP 155 / 110; Pulse 94; Resp 19; Pulse Ox 98% on R/A; ae4 14:13 BP 180 / 110 LA Supine (man/reg); Pulse 115; Resp 18; Pulse Ox 100% on R/A; ae4 15:28 BP 168 / 109; Pulse 117; Resp 17; Pulse Ox 98% ; ms 16:52 BP 128 / 84; rn 17:13 BP 141 / 100; Pulse 99; Resp 19; Pulse Ox 96% on R/A; ae4 Chinyere Coma Score: 13:42 Eye Response: spontaneous(4). Verbal Response: oriented(5). Motor Response: obeys ae4 commands(6). Total: 15. Trauma Score (Adult): 13:42 Eye Response: spontaneous(1); Verbal Response: oriented(1); Motor Response: obeys ae4 commands(2); Systolic BP: > 89 mm Hg(4); Respiratory Rate: 10 to 29 per min(4); Chinyere Score: 15; Trauma Score: 12 MDM: 12:45 Patient medically screened. rn 16:52 Differential diagnosis: abrasion, closed head injury, contusion, fracture, syncope, rn dehydration, dementia, UTI. Data reviewed: vital signs, nurses notes, lab test result(s), EKG, radiologic studies, CT scan, plain films, and as a result, I will discharge patient. Counseling: I had a detailed discussion with the patient and/or guardian regarding: the historical points, exam findings, and any diagnostic results supporting the discharge/admit diagnosis, lab results, radiology results, the need for outpatient follow up, to return to the emergency department if symptoms worsen or persist or if there are any questions or concerns that arise at home. Response to treatment: the patient's symptoms have markedly improved after treatment, and as a result, I will discharge patient. Special discussion: I discussed with the patient/guardian in detail that at this point there is no indication for admission to the hospital. It is understood, however, that if the symptoms persist or worsen the patient needs to return immediately for re-evaluation. ED course: CT head and neck as well as CXR/pelvis/elbow/coccyx. . 16:55 ED course: Unclear series of events, but at some point in evening patient went to use rn bathroom, woke up in her bed, and doesn't recall what happened in between, other than abrasion on left elbow, no other signs of trauma. Neg trauma w/u as well as syncope/cardiac w/u. . 06/25 12:49 Order name: Glucometer Result Nova; Complete Time: 14:46 ae4 06/25 12:56 Order name: CBC with Diff; Complete Time: 14:46 rn 06/25 12:56 Order name: CT Head C Spine; Complete Time: 14:46 rn 06/25 12:56 Order name: Basic Metabolic Panel; Complete Time: 14:46 rn 06/25 12:56 Order name: Urine Microscopic Only; Complete Time: 14:46 rn 06/25 13:30 Order name: Urine Dipstick--Ancillary (enter results) gm 06/25 12:56 Order name: XRAY Elbow LEFT 3 view; Complete Time: 16:34 rn 06/25 12:56 Order name: XRAY Chest (1 view); Complete Time: 16:34 rn 06/25 12:56 Order name: XRAY Pelvis; Complete Time: 16:34 rn 06/25 12:56 Order name: XRAY Sacrum And Coccyx; Complete Time: 16:34 rn 06/25 12:56 Order name: IV Start; Complete Time: 13:23 rn 06/25 13:05 Order name: EKG; Complete Time: 13:06 rn 06/25 12:56 Order name: Urine Dipstick-Ancillary (obtain specimen); Complete Time: 14:13 rn 06/25 12:56 Order name: Wound Care; Complete Time: 14:12 rn 06/25 12:56 Order name: Wound dressing; Complete Time: 14:12 rn 06/25 13:05 Order name: EKG - Nurse/Tech; Complete Time: 14:12 rn Administered Medications: 13:50 Drug: NS 0.9% 1000 ml Route: IV; Rate: 1000 ml; Site: right antecubital; ae4 17:14 Follow up: IV Status: Completed infusion ae4 14:51 Drug: cloNIDine 0.2 mg Route: PO; ae4 17:14 Follow up: Response: Blood pressure is lowered ae4 Disposition: 06/25/19 16:55 Discharged to Home. Impression: Abrasion of elbow, Hypertension. - Condition is Stable. - Discharge Instructions: Hypertension, Skin Tear Care. - Medication Reconciliation Form, Thank You Letter, Antibiotic Education, Prescription Opioid Use form. - Follow up: Private Physician; When: As needed; Reason: Recheck today's complaints, Re-evaluation by your physician. - Problem is new. - Symptoms have improved. Signatures: Dispatcher [employer] EDMS Gregg Silvestre MD MD rn Elliott, Andrea, RN RN ae4 Corrections: (The following items were deleted from the chart) 17:14 16:55 06/25/2019 16:55 Discharged to Home. Impression: Abrasion of elbow; Hypertension. ae4 Condition is Stable. Forms are Medication Reconciliation Form, Thank You Letter, Antibiotic Education, Prescription Opioid Use. Follow up: Private Physician; When: As needed; Reason: Recheck today's complaints, Re-evaluation by your physician. Problem is new. Symptoms have improved. rn
--- NOTE | 2019-06-25 16:55 | ER ---
Nurse's Notes [facility] Name: Syl Sheikh Age: 79 yrs Sex: Female : 1940 Arrival Date: 06/25/2019 Time: 12:31 Bed 8 Private MD: Diagnosis: Abrasion of elbow;Hypertension Presentation: 06/25 12:38 Presenting complaint: EMS states: Patient states she fell two days prior, and is unsure ae4 if she fell again this morning. States she did wake up in her bed and has a fresj skin tear to left forearm. Patient c/o headache and RLQ "discomfort". 12:38 Acuity: MP 3 ae4 12:38 Method Of Arrival: EMS: [facility] ae4 13:44 Transition of care: patient was not received from another setting of care. Onset of ae4 symptoms is unknown. Risk Assessment: Do you want to hurt yourself or someone else? Patient reports no desire to harm self or others. Initial Sepsis Screen: Does the patient meet any 2 criteria? No. Patient's initial sepsis screen is negative. Does the patient have a suspected source of infection? No. Patient's initial sepsis screen is negative. Care prior to arrival: None. 13:45 Mechanism of Injury: Possible fall injury. ae4 13:45 Trauma event details: [place] ae4 Trauma Activation: Physician: ED Physician; Name: ; Notified At: ; Arrived At: Physician: General Surgeon; Name: ; Notified At: ; Arrived At: Physician: Radiology; Name: ; Notified At: ; Arrived At: Physician: Respiratory; Name: ; Notified At: ; Arrived At: Physician: Lab; Name: ; Notified At: ; Arrived At: 13:45 N/A ae4 Historical: - Allergies: 12:42 butorphanol tartrate; ae4 12:42 Codeine; ae4 12:42 Hydrocodone-Acetaminophen; ae4 12:42 Lisinopril; ae4 12:42 Stadol; ae4 12:42 statin drugs; ae4 - Home Meds: 12:42 Alprazolam Oral [Active]; pantoprazole Oral [Active]; paroxetine Oral [Active]; ae4 pentoxifylline Oral [Active]; - PMHx: 12:42 abdominal aortic aneurysm; CVA; Diabetes - NIDDM; GERD; Hypertension; TIA; ae4 - Immunization history:: Adult Immunizations up to date. - Immunization history: Last tetanus immunization: - up to date. - Family history:: not pertinent. - Social history:: Smoking status: Patient/guardian denies using tobacco. - Ebola Screening: : No symptoms or risks identified at this time. - Hospitalizations: : The patient was recently seen at [facility]. Screenin:40 Abuse screen: Denies threats or abuse. Nutritional screening: No deficits noted. ae4 Tuberculosis screening: No symptoms or risk factors identified. Fall Risk Fall in past 12 months (25 points). Secondary diagnosis (15 points) impaired mobility, IV access (20 points). Ambulatory Aid- None/Bed Rest/Nurse Assist (0 pts). Gait- Weak (10 pts.). Mental Status- Overestimates/Forgets Limitations (15 pts.). Primary Survey: 13:40 NO uncontrolled hemorrhage observed. A: The patient is alert. Airway: patent. ae4 Breathing/Chest: Respiratory pattern: regular, Respiratory effort: spontaneous, Breath sounds: clear. Circulation:. Disability Alert. Exposure/Environment: There is no evidence of uncontrolled external bleeding. Obvious injury(ies) are noted at this time: Small skin tear to left forearm, small amount of bleeding noted. 17:11 Reassessment Airway Airway Patent Breathing/Chest Respiratory pattern Regular ae4 Respiratory effort Spontaneous Breath sounds Clear. Assessment: 12:48 Reassessment: FSBS 187. ae4 12:48 Neuro: Level of Consciousness is awake, alert, obeys commands, Oriented to person, ae4 place, situation. Cardiovascular: Heart tones S1 S2 present Patient's skin is warm and dry. Respiratory: Airway is patent Respiratory effort is even, unlabored, shallow, Respiratory pattern is regular, symmetrical. GI: Abdomen is flat, Bowel sounds present X 4 quads. Abd is soft and non tender X 4 quads. : No signs and/or symptoms were reported regarding the genitourinary system. Urine is cloudy. EENT: No signs and/or symptoms were reported regarding the EENT system. Derm: Skin is pink, warm \\T\\ dry. Derm: Wound noted. Musculoskeletal: No signs and/or symptoms reported regarding the musculoskeletal system. 13:34 General: Appears in no apparent distress. comfortable, slender, Behavior is calm, ae4 cooperative, Smells of Urine. Pain: Complains of pain in head and back of head. 14:17 Reassessment: Patient appears in no apparent distress at this time. Patient and/or ae4 family updated on plan of care and expected duration. Pain level reassessed. Patient is alert, oriented x 3, equal unlabored respirations, skin warm/dry/pink. 15:00 Reassessment: Patient incontinent of urine, symone area cleaned, new brief applied. ae4 15:43 Reassessment: Brief soaked with urine, new brief applied, area cleansed. ae4 16:30 Reassessment: Patient appears in no apparent distress at this time. Patient and/or ae4 family updated on plan of care and expected duration. Pain level reassessed. Patient states feeling better. Vital Signs: 12:42 BP 157 / 117; Pulse 118; Resp 17; Temp 97.7(O); Pulse Ox 99% ; Weight 52.16 kg (R); ae4 13:00 BP 155 / 110; Pulse 94; Resp 19; Pulse Ox 98% on R/A; ae4 14:13 BP 180 / 110 LA Supine (man/reg); Pulse 115; Resp 18; Pulse Ox 100% on R/A; ae4 15:28 BP 168 / 109; Pulse 117; Resp 17; Pulse Ox 98% ; ms 16:52 BP 128 / 84; rn 17:13 BP 141 / 100; Pulse 99; Resp 19; Pulse Ox 96% on R/A; ae4 Chinyere Coma Score: 13:42 Eye Response: spontaneous(4). Verbal Response: oriented(5). Motor Response: obeys ae4 commands(6). Total: 15. Trauma Score (Adult): 13:42 Eye Response: spontaneous(1); Verbal Response: oriented(1); Motor Response: obeys ae4 commands(2); Systolic BP: > 89 mm Hg(4); Respiratory Rate: 10 to 29 per min(4); Chinyere Score: 15; Trauma Score: 12 ED Course: 12:31 Patient arrived in ED. ae4 12:41 Triage completed. ae4 12:45 Gregg Silvestre MD is Attending Physician. rn 12:48 Bed in low position. Call light in reach. Side rails up X 1. library monitor on. Pulse ae4 ox on. NIBP on. Warm blanket given. 13:11 Mani Mari, RN is Primary Nurse. ae4 13:27 CT completed. Patient tolerated procedure well. Patient moved to radiology via mw3 stretcher. 13:28 CT Head C Spine In Process Unspecified. EDMS 13:42 Patient maintains SpO2 saturation greater than 95% on room air. ae4 13:44 Arm band placed on right wrist. ae4 13:45 Thermoregulation: warm blanket given to patient. ae4 13:48 XRAY Elbow LEFT 3 view In Process Unspecified. EDMS 13:48 XRAY Chest (1 view) In Process Unspecified. EDMS 13:48 XRAY Pelvis In Process Unspecified. EDMS 13:48 XRAY Sacrum And Coccyx In Process Unspecified. EDMS 17:12 No provider procedures requiring assistance completed. IV discontinued, intact, ae4 bleeding controlled, No redness/swelling at site. Pressure dressing applied. Administered Medications: 13:50 Drug: NS 0.9% 1000 ml Route: IV; Rate: 1000 ml; Site: right antecubital; ae4 17:14 Follow up: IV Status: Completed infusion ae4 14:51 Drug: cloNIDine 0.2 mg Route: PO; ae4 17:14 Follow up: Response: Blood pressure is lowered ae4 Output: 13:42 Urine: 100ml (Voided); Total: 100ml. ae4 Outcome: 16:55 Discharge ordered by . rn 17:12 Discharged to home via wheelchair, with family. ae4 17:12 Condition: stable 17:12 Patient's length of stay in the Emergency Department was greater than 2 hours. Patient's length of stay extended due to 17:12 Discharge instructions given to patient, family, Instructed on discharge instructions, ae4 follow up and referral plans. Demonstrated understanding of instructions. 17:14 Patient left the ED. ae4 Signatures: Dispatcher [employer] Allison Nolasco ms, Roman, MD MD rn Willis, Michelle [facility] Mani Mari, RN RN ae4
[2019-06-25 18:23] VITALS: TEMP 97.7
[2019-06-25 18:29] VITALS: BP 141/100; O2SAT 96
--- NOTE | 2019-06-26 09:47 | EKG ---
Test Date: 2019-06-25 Test Time: 14:06:01 Traveling Nurse: MEASUREMENT RESULTS: Intervals: Rate: 116 PA: 188 QRSD: 72 QT: 312 QTc: 433 [place]: P: PA: 188 QRS: -18 T: 70 INTERPRETIVE STATEMENTS: Sinus tachycardia Inferior infarct, age undetermined Anteroseptal infarct, age undetermined Abnormal ECG Compared to ECG 05/29/2019 11:15:18 Sinus rhythm no longer present Myocardial infarct finding still present Electronically Signed On 06-26-19 09:47:10 CDT by Pawel Michel
== END 2019-06-25 17:14 | disposition home or self-care (01) ==
LOC: ER 12:30
DX: S50.312A Abrasion of left elbow, initial encounter (principal); I10 Essential (primary) hypertension; W19.XXXA Unspecified fall, initial encounter; Y93.89 Activity, other specified; Y92.9 Unspecified place or not applicable; Z88.5 Allergy status to narcotic agent; Z88.8 Allergy status to other drugs, medicaments and biological substances; E11.9 Type 2 diabetes mellitus without complications
CPT/HCPCS: 96361; 93005; 85025; 80048; 36415; 82962; 70450; 72125; 71045; 72220; 72170; 73080; 96360; 99285; J7030; 81003; 81015

== ENCOUNTER 2019-07-08 09:29 | Observation (INO) | payer OTHER ==
--- NOTE | 2019-07-08 10:21 | RAD REPORT ---
EXAM DESCRIPTION: RAD - Chest Single View - 07/08/2019 10:12 am CLINICAL HISTORY: Chest pain, shortness of breath COMPARISON: June 25 TECHNIQUE: AP portable chest image was obtained 1009 hours . FINDINGS: No acute lung parenchymal process. No failure or volume overload suspected. Heart size is normal. Patient is rotated. This accentuates the mediastinum. Patient has a tortuous aorta. Aorta elias ears dilated but not clearly different from prior imaging. No CT chest imaging is seen to better trever acterize the aorta. No measurable pleural effusion and no pneumothorax. No acute bony abnormality seen. No acute aortic findings suspected. IMPRESSION: No acute lung parenchymal process. No failure or volume overload. Aorta is tortuous and does appear to be dilated. Pattern is not substantially different from the rece nt comparison. No prior CT chest imaging is seen to better document the aorta.
[2019-07-08 10:46] LABS: Protime INR 1.08
[2019-07-08 10:48] LABS: Absolute Lymphocytes (CBC) 1.7 K/uL (0.7-4.9); Basophils % 0.5 % (0-1.3); Hematocrit 31.2 % (36.0-45.0); Lymphocytes % 13.5 % (15.3-44.8); MPV 7.9 fL (7.6-11.3); RBC Red Blood Cell Count 4.14 M/uL (3.86-4.86)
[2019-07-08 11:00] LABS: ALT/SGPT 24 U/L (12-78); AST/SGOT 17 U/L (15-37); Albumin 2.9 g/dL (3.4-5.0); Alkaline Phosphatase 139 U/L (45-117); BUN Blood Urea Nitrogen 12 mg/dL (7-18); Bicarbonate 28 mmol/L (21-32); Bilirubin Direct < 0.1 mg/dL (0-0.2); Bilirubin Total 0.4 mg/dL (0.2-1.0); Glucose Level 180 mg/dL (74-106); Magnesium 1.9 mg/dL (1.8-2.4); NT PRO-BNP 1448 pg/mL (<450); Potassium 3.8 mmol/L (3.5-5.1); Protein, Total 7.3 g/dL (6.4-8.2); Sodium Level 139 mmol/L (136-145); Troponin (Emerg Dept Use Only) < 0.02 ng/mL (0.0-0.045)
--- NOTE | 2019-07-08 12:02 | RAD REPORT ---
EXAM DESCRIPTION: CT - Angio Aorta For Dissection - 07/08/2019 11:34 am CLINICAL HISTORY: CHEST PAIN COMPARISON: Portable chest same date, CT angio dissection study December 2017 TECHNIQUE: Dynamically enhanced 3 mm thick images of the chest, abdomen, and upper pelvis were obtai kemal during administration of approximately 150mL Isovue 370 IV contrast. Sagittal and coronal reconst ruction images were generated using MIP and reviewed. Exam utilizes a protocol to evaluate entire cou rse of the aorta. All CT scans are performed using dose optimization technique as appropriate and may include automated exposure control or mA/KV adjustment according to patient size. FINDINGS: No aortic dissection is identified. Current and prior aortic dissection studies were corre lated with matching areas of the aorta measured. The ascending aorta is 4.8 cm AP x 4.7 cm TR. This c ompares to 4.1 cm AP x 4.2 cm TR on the prior study. No acute finding at the great vessel origins. Fo pura narrowing of the aorta medially distal to the left subclavian artery origin has not changed. The distal arch is 4.6 cm in diameter compared to 3.7 cm in diameter. Mid descending thoracic aorta is 3. 5 x 3.5 cm compared to 2.9 x 2.9 cm. Just above the diaphragm the distal aspect of the descending tho racic aorta is 3.4 cm in diameter compared to 3.2 cm. No pulmonary artery acute finding. No cardiomegaly, pericardial thickening or pericardial effusion. C oronary artery calcifications are present. No mass or infiltrate in the lung parenchyma. No pleural thickening, pleural effusion or pneumothorax . No abnormal mediastinal or hilar mass or lymphadenopathy seen. No chest wall mass or abnormal axillar y lymphadenopathy. Celiac and superior mesenteric artery show no acute findings. Since the prior December 2017 dissection s tudy the patient has undergone aortoiliac endovascular stenting. Proximal aspect of the stent is supe rior to the renal arteries. Left renal artery shows approximately 50% stenosis near the origin. The r ight renal artery shows 60% stenosis. No evidence for perfusion abnormality of the renal parenchyma. A small blush of contrast is seen along the posterior margin of the left iliac limb within the lumen of the distal abdominal aorta. This could be a very small endoleak. This may be a persistent channel supplying a lumbar artery. Thrombus surrounds the stent in the dilated jackson abdominal aorta. Solid abdominal viscera and bowel show no significant findings. Multiple liver cysts are identified. No gallbladder or biliary tree abnormality. No mass or abnormal lymphadenopathy. No free air, free f luid or inflammatory stranding. No urinary bladder abnormality. IMPRESSION: No aortic dissection or acute aortic finding. Thoracic aortic aneurysm is present. This involves the ascending aorta, arch and descending aorta. Ao rtic diameter has increased measurably from the December 2017 study. Measurements are detailed in the elizabeth dy of the report. No acute thoracic aortic component. Since the prior examination the patient has undergone aortoiliac endovascular stenting. Thrombus fill s the dilated jackson abdominal aorta surrounding the stent. Small curvilinear blush of contrast along the posterior margin of the left iliac limb within the aort a may be a small endoleak or possibly a persistent channel supplying a lumbar artery. This is not see n as an acute finding. No pulmonary artery abnormality. No acute lung parenchymal, mediastinal or hilar process. No acute elizabeth wel or abdominal viscera rough process.
[2019-07-08] MEDS ORDERED: HYDRALAZINE HCL 20 MG/ML VIAL ONE (13:17)
--- NOTE | 2019-07-08 13:48 | ER ---
Nurse's Notes [facility] Name: Syl Sheikh Age: 79 yrs Sex: Female : 1940 Arrival Date: 07/08/2019 Time: 09:30 Bed 4 Private MD: Diagnosis: Precordial pain Presentation: 07/08 09:30 Presenting complaint: EMS states: Substernal chest pain 9/10 and SOB since last night. hb Pain 7/10 after Nitro x 2 and ASA 324mg PO. BP 209/110, HR 90s, SPO2 100% on RA. 20g RIGHT AC. Transition of care: patient was not received from another setting of care. Onset of symptoms was July 07, 2019. Risk Assessment: Do you want to hurt yourself or someone else? Patient reports no desire to harm self or others. Initial Sepsis Screen: Does the patient meet any 2 criteria? No. Patient's initial sepsis screen is negative. Does the patient have a suspected source of infection? No. Patient's initial sepsis screen is negative. Care prior to arrival: Medication(s) given: ASA, 324 mg Nitroglycerin, x 2. 09:30 Method Of Arrival: EMS: [facility] hb 09:30 Acuity: MP 3 hb Triage Assessment: 09:35 General: Appears in no apparent distress. Behavior is calm, cooperative. Pain: Pain hb currently is 4 out of 10 on a pain scale. EENT: No signs and/or symptoms were reported regarding the EENT system. Neuro: Level of Consciousness is awake, alert, obeys commands, Oriented to person, place, time, situation. Cardiovascular: Heart tones S1 S2 present Capillary refill < 3 seconds Patient's skin is warm and dry. Respiratory: Airway is patent Respiratory effort is even, unlabored, Respiratory pattern is regular, symmetrical, Breath sounds are clear bilaterally. GI: No signs and/or symptoms were reported involving the gastrointestinal system. : No signs and/or symptoms were reported regarding the genitourinary system. Derm: Skin is intact, is healthy with good turgor, Skin is pink, warm \T\ dry. Musculoskeletal: No signs and/or symptoms reported regarding the musculoskeletal system. Historical: - Allergies: 09:32 butorphanol tartrate; hb 09:32 Codeine; hb 09:32 Hydrocodone-Acetaminophen; hb 09:32 Lisinopril; hb 09:32 Stadol; hb 09:32 statin drugs; hb - Home Meds: 09:32 Alprazolam Oral [Active]; pantoprazole Oral [Active]; paroxetine Oral [Active]; hb pentoxifylline Oral [Active]; - PMHx: 09:32 abdominal aortic aneurysm; CVA; Diabetes - NIDDM; GERD; Hypertension; TIA; hb - Immunization history:: Adult Immunizations up to date. - Social history:: Smoking status: Patient/guardian denies using tobacco. - Ebola Screening: : No symptoms or risks identified at this time. Screenin:34 Abuse screen: Denies threats or abuse. Denies injuries from another. Nutritional hb screening: No deficits noted. Tuberculosis screening: No symptoms or risk factors identified. Fall Risk None identified. Assessment: 09:36 General: see triage assessment. hb 10:30 Reassessment: Patient appears in no apparent distress at this time. Patient and/or hb family updated on plan of care and expected duration. Pain level reassessed. Patient is alert, oriented x 3, equal unlabored respirations, skin warm/dry/pink. 11:30 Reassessment: Patient appears in no apparent distress at this time. Patient and/or hb family updated on plan of care and expected duration. Pain level reassessed. Patient is alert, oriented x 3, equal unlabored respirations, skin warm/dry/pink. 12:26 Reassessment: Patient appears in no apparent distress at this time. Patient and/or hb family updated on plan of care and expected duration. Pain level reassessed. Patient is alert, oriented x 3, equal unlabored respirations, skin warm/dry/pink. 13:13 Reassessment: Patient appears in no apparent distress at this time. Patient and/or hb family updated on plan of care and expected duration. Pain level reassessed. Patient is alert, oriented x 3, equal unlabored respirations, skin warm/dry/pink. 14:08 Reassessment: Patient appears in no apparent distress at this time. Patient and/or hb family updated on plan of care and expected duration. Pain level reassessed. Patient is alert, oriented x 3, equal unlabored respirations, skin warm/dry/pink. Vital Signs: 09:32 BP 159 / 91; Pulse 92; Resp 15; Temp 97.7; Pulse Ox 100% on R/A; Weight 56.7 kg; Height hb 5 ft. 6 in. (167.64 cm); Pain 4/10; 11:00 BP 175 / 94; Pulse 77; Resp 14; Pulse Ox 100% on R/A; Pain 2/10; hb 11:50 BP 167 / 103; Pulse 80; Resp 14; Pulse Ox 100% on R/A; hb 13:00 BP 178 / 113; Pulse 89; Resp 16; Pulse Ox 100% on R/A; Pain 0/10; hb 14:30 BP 162 / 94; Pulse 90; Resp 15; Temp 97.7(TE); Pulse Ox 100% on R/A; Pain 0/10; hb 09:32 Body Mass Index 20.18 (56.70 kg, 167.64 cm) hb ED Course: 09:30 Patient arrived in ED. hb 09:32 Triage completed. hb 09:32 Arm band placed on. hb 09:34 Patient has correct armband on for positive identification. Bed in low position. Call hb light in reach. Side rails up X 1. decorating machine tender on. Pulse ox on. NIBP on. 09:34 Patient maintains SpO2 saturation greater than 95% on room air. hb 09:50 Julio Pardo MD is Attending Physician. gs 10:09 XRAY Chest (1 view) In Process Unspecified. EDMS 10:28 Initial lab(s) drawn, by me, by ED staff, sent to lab. Maintain EMS IV. Dressing ms intact. Good blood return noted. Site clean \T\ dry. Gauge \T\ site: 20g right AC. 11:34 CT completed. Patient tolerated procedure well. Patient moved back from CT. mw3 11:35 CT Aorta for Dissection In Process Unspecified. EDMS 11:50 Genny Huang, MIRIAM is Primary Nurse. hb 13:46 Jazzy Maciel MD is Hospitalizing Provider. gs 14:46 No provider procedures requiring assistance completed. Patient admitted, IV remains in hb place. Administered Medications: 13:19 Drug: hydrALAZINE 10 mg Route: IV; Rate: calculated rate; Site: right antecubital; hb Outcome: 13:47 Decision to Hospitalize by Provider. gs 14:46 Admitted to Tele accompanied by [facility], via wheelchair, room 426, with chart, Report hb called to Phil PINEDA 14:46 Condition: stable 14:46 Discharge instructions given to patient, Instructed on the need for admit, Demonstrated understanding of instructions. 14:57 Patient left the ED. hb Signatures: Dispatcher [employer] Allison Barrios ms, Heather, RN RN Julio Pardo MD MD gs Willis, Michelle 3
--- NOTE | 2019-07-08 13:48 | EDPHYS ---
Physician Documentation [facility] Name: Syl Sheikh Age: 79 yrs Sex: Female : 1940 Arrival Date: 07/08/2019 Time: 09:30 Bed 4 Private MD: ED Physician Julio Pardo HPI: 07/08 16:18 This 79 yrs old Female presents to ER via EMS with complaints of Chest Pain. gs 16:18 The patient or guardian reports chest pain that is located primarily in the anterior gs chest wall. Onset: suddenly, at 01:00. The pain does not radiate. Associated signs and symptoms: Pertinent negatives: diaphoresis, vomiting. The chest pain is described as a heaviness, squeezing. Duration: The patient or guardian reports multiple episodes, that are intermittent, that wax and wane, with no pattern, the episodes last approximately 5 minute(s). Modifying factors: The symptoms are alleviated by nothing. the symptoms are aggravated by nothing. Severity of pain: At its worst the pain was severe in the emergency department the pain has improved markedly. The patient has experienced similar episodes in the past, multiple times. Historical: - Allergies: 09:32 butorphanol tartrate; hb 09:32 Codeine; hb 09:32 Hydrocodone-Acetaminophen; hb 09:32 Lisinopril; hb 09:32 Stadol; hb 09:32 statin drugs; hb - Home Meds: 09:32 Alprazolam Oral [Active]; pantoprazole Oral [Active]; paroxetine Oral [Active]; hb pentoxifylline Oral [Active]; - PMHx: 09:32 abdominal aortic aneurysm; CVA; Diabetes - NIDDM; GERD; Hypertension; TIA; hb - Immunization history:: Adult Immunizations up to date. - Social history:: Smoking status: Patient/guardian denies using tobacco. - Ebola Screening: : No symptoms or risks identified at this time. ROS: 16:18 All other systems are negative. gs Exam: 16:18 Head/Face: Normocephalic, atraumatic. Eyes: Pupils equal round and reactive to light, gs extra-ocular motions intact. Lids and lashes normal. Conjunctiva and sclera are non-icteric and not injected. Cornea within normal limits. Periorbital areas with no swelling, redness, or edema. ENT: Nares patent. No nasal discharge, no septal abnormalities noted. Tympanic membranes are normal and external auditory canals are clear. Oropharynx with no redness, swelling, or masses, exudates, or evidence of obstruction, uvula midline. Mucous membranes moist. Neck: Trachea midline, no thyromegaly or masses palpated, and no cervical lymphadenopathy. Supple, full range of motion without nuchal rigidity, or vertebral point tenderness. No Meningismus. Chest/axilla: Normal chest wall appearance and motion. Nontender with no deformity. No lesions are appreciated. Cardiovascular: Regular rate and rhythm with a normal S1 and S2. No gallops, murmurs, or rubs. Normal PMI, no JVD. No pulse deficits. Respiratory: Lungs have equal breath sounds bilaterally, clear to auscultation and percussion. No rales, rhonchi or wheezes noted. No increased work of breathing, no retractions or nasal flaring. Abdomen/GI: Soft, non-tender, with normal bowel sounds. No distension or tympany. No guarding or rebound. No evidence of tenderness throughout. Back: No spinal tenderness. No costovertebral tenderness. Full range of motion. Skin: Warm, dry with normal turgor. Normal color with no rashes, no lesions, and no evidence of cellulitis. MS/ Extremity: Pulses equal, no cyanosis. Neurovascular intact. Full, normal range of motion. Neuro: Awake and alert, GCS 15, oriented to person, place, time, and situation. Cranial nerves II-XII grossly intact. Motor strength 5/5 in all extremities. Sensory grossly intact. Cerebellar exam normal. Normal gait. 16:18 Constitutional: The patient appears alert, awake. 16:18 ECG was reviewed by the Attending Physician. Vital Signs: 09:32 BP 159 / 91; Pulse 92; Resp 15; Temp 97.7; Pulse Ox 100% on R/A; Weight 56.7 kg; Height hb 5 ft. 6 in. (167.64 cm); Pain 4/10; 11:00 BP 175 / 94; Pulse 77; Resp 14; Pulse Ox 100% on R/A; Pain 2/10; hb 11:50 BP 167 / 103; Pulse 80; Resp 14; Pulse Ox 100% on R/A; hb 13:00 BP 178 / 113; Pulse 89; Resp 16; Pulse Ox 100% on R/A; Pain 0/10; hb 14:30 BP 162 / 94; Pulse 90; Resp 15; Temp 97.7(TE); Pulse Ox 100% on R/A; Pain 0/10; hb 09:32 Body Mass Index 20.18 (56.70 kg, 167.64 cm) hb MDM: 10:03 Patient medically screened. 16:18 Differential diagnosis: coronary artery disease chest wall pain, congestive heart gs failure thoracic aortic disection. Data reviewed: vital signs, nurses notes, old medical records, lab test result(s), EKG, radiologic studies. Response to treatment: the patient's symptoms have resolved after treatment, the patient's pain is gone, the patient's condition has returned to base line. 07/08 09:59 Order name: Basic Metabolic Panel; Complete Time: 11:10 07/08 09:59 Order name: CBC with Diff; Complete Time: 11:10 07/08 09:59 Order name: LFT's; Complete Time: 11:10 07/08 09:59 Order name: Magnesium; Complete Time: 11:10 07/08 09:59 Order name: NT PRO-BNP; Complete Time: 11:10 07/08 09:59 Order name: PT-INR; Complete Time: 11:10 07/08 09:59 Order name: Troponin (emerg Dept Use Only); Complete Time: 11:10 07/08 11:32 Order name: Troponin (emerg Dept Use Only); Complete Time: 12:12 07/08 13:58 Order name: CBC with Automated Diff EDSD 07/08 13:58 Order name: Comprehensive Metabolic Panel EDSD 07/08 13:58 Order name: CKMB Creatine Kinase MB EDSD 07/08 13:58 Order name: CKMB Creatine Kinase MB EDMS 07/08 13:58 Order name: CKMB Creatine Kinase MB EDSD 07/08 13:58 Order name: CKMB Creatine Kinase MB EDSD 07/08 09:59 Order name: XRAY Chest (1 view); Complete Time: 11:10 07/08 09:59 Order name: EKG; Complete Time: 10:00 07/08 11:11 Order name: CT Aorta for Dissection; Complete Time: 12:12 07/08 13:58 Order name: Heart Healthy EDSD 07/08 13:58 Order name: EKG Electrocardiogram EDSD 07/08 13:58 Order name: Creatine Phosphokinase EDSD 07/08 13:58 Order name: Creatine Phosphokinase EDSD 07/08 13:58 Order name: Creatine Phosphokinase EDSD 07/08 13:58 Order name: Creatine Phosphokinase EDSD 07/08 13:58 Order name: Lipid Profile EDSD 07/08 13:58 Order name: Lipid Profile [facility] 07/08 13:58 Order name: Troponin I EDSD 07/08 13:58 Order name: Troponin I EDSD 07/08 13:58 Order name: Troponin I EDSD 07/08 13:58 Order name: Troponin I [facility] 07/08 09:59 Order name: Cardiac monitoring; Complete Time: 10:24 07/08 09:59 Order name: EKG - Nurse/Tech; Complete Time: 10:24 07/08 09:59 Order name: IV Saline Lock; Complete Time: 10:24 07/08 09:59 Order name: Labs collected and sent; Complete Time: 10:28 07/08 09:59 Order name: O2 Per Protocol; Complete Time: 10:24 07/08 09:59 Order name: O2 Sat Monitoring; Complete Time: 10:26 07/08 13:58 Order name: EKG Electrocardiogram [facility] 07/08 13:58 Order name: EKG Electrocardiogram [facility] 07/08 13:58 Order name: EKG Electrocardiogram [facility] EC:18 Rate is 97 beats/min. Rhythm is regular. [place] interval is prolonged. QRS interval is gs normal. QT interval is normal. Q waves are Old. T waves are Inverted in lead aVL. Clinical impression: NSR w/ Non-specific ST/T Changes. Interpreted by me. Administered Medications: : Drug: hydrALAZINE 10 mg Route: IV; Rate: calculated rate; Site: right antecubital; hb Disposition: 07/08/19 13:47 Hospitalization ordered by Jazzy Maciel for Observation. Preliminary diagnosis is Precordial pain. - Bed requested for Telemetry/MedSurg (observation). - Status is Observation. hb - Condition is Stable. - Problem is new. - Symptoms have improved. UTI on Admission? No Signatures: Dispatcher [employer] EDPeg Bryant, RN RN dw Yohannes Winters PA PA cp Baxter, Heather, RN RN Julio Pardo MD MD gs Corrections: (The following items were deleted from the chart) 14:31 13:47 Hospitalization Ordered by Jazzy Maciel MD for Observation. Preliminary dw diagnosis is Precordial pain. Bed requested for Telemetry/MedSurg (observation). Status is Observation. Condition is Stable. Problem is new. Symptoms have improved. UTI on Admission? No. gs 14:57 14:31 07/08/2019 13:47 Hospitalization Ordered by Jazzy Maciel MD for Observation. Preliminary diagnosis is Precordial pain. Bed requested for Telemetry/MedSurg (observation). Status is Observation. Condition is Stable. Problem is new. Symptoms have improved. UTI on Admission? No. dw
[2019-07-08] MEDS ORDERED: ACETAMINOPHEN 500 MG TAB PO PRN (13:51)
[2019-07-08] MEDS ORDERED: ONDANSETRON 4 MG/2 ML VIAL IV PRN (13:51)
[2019-07-08] MEDS ORDERED: MORPHINE 4 MG/ML SYR IV PRN (13:51)
[2019-07-08] MEDS ORDERED: cloNIDine HCl 0.1 MG TAB PO PRN (15:09)
[2019-07-08] MEDS ORDERED: NITROGLYCERIN 0.4 MG/TAB SL PRN (15:09)
[2019-07-08 15:29] VITALS: BMI 19.3
[2019-07-08 16:01] LABS: Absolute Lymphocytes (CBC) 2.7 K/uL (0.7-4.9); Basophils % 1.2 % (0-1.3); Hematocrit 37.3 % (36.0-45.0); Lymphocytes % 20.4 % (15.3-44.8); MPV 7.7 fL (7.6-11.3); RBC Red Blood Cell Count 4.87 M/uL (3.86-4.86)
[2019-07-08 16:17] LABS: Albumin 3.3 g/dL (3.4-5.0); Bilirubin Total 0.4 mg/dL (0.2-1.0); Ferritin 166.5 ng/mL (8-388); Potassium 3.2 mmol/L (3.5-5.1); Protein, Total 8.2 g/dL (6.4-8.2)
[2019-07-08] MEDS: PARoxetine HCl 10 MG TAB PO SCH (16:33)
[2019-07-08 16:48] LABS: Urine Appearance CLEAR; Urine Bilirubin NEGATIVE (NEG); Urine Blood NEGATIVE (NEG); Urine Color YELLOW; Urine Glucose NEGATIVE (NEG); Urine Protein 1+ (NEG); Urine Specific Gravity >=1.030 (1.005-1.030); Urine Urobilinogen 0.2 mg/dL (0.2-1.0)
[2019-07-08 16:49] LABS: Urine Microscopic Reflex ORDER UMIC
[2019-07-08 17:02] LABS: Urine Bacteria <20 /HPF (<20); Urine Culture Reflex Order NOT NEEDED; Urine RBC <5 /HPF (NONE SEEN)
[2019-07-08 17:28] LABS: CKMB Creatine Kinase MB 2.3 ng/mL (0.3-3.6); Creatine Phosphokinase 38 U/L (26-192); Troponin I < 0.02 ng/mL (0.0-0.045)
[2019-07-08] MEDS: ATORVASTATIN 40 MG TAB PO SCH (20:40)
[2019-07-08] MEDS: METOPROLOL TAR 25 MG TAB PO SCH ×2 (20:40→20:50)
[2019-07-08] MEDS: ALPRAZOLAM 0.5 MG TABLET PO SCH (20:40)
[2019-07-08] MEDS: PENTOXIFYLLINE ER 400 MG TAB PO SCH (20:40)
[2019-07-08 22:34] LABS: CKMB Creatine Kinase MB 1.2 ng/mL (0.3-3.6); Creatine Phosphokinase 29 U/L (26-192); Troponin I < 0.02 ng/mL (0.0-0.045)
--- NOTE | 2019-07-09 01:00 | HP ---
Date of Admission: 07/08/2019 Reason For Admission: Chest pain. History Of Present Illness: This is a 79-year-old female with history of multiple medical problems i ncluding palpitation, anxiety, peripheral vascular disease, diet-controlled diabetes mellitus, acid r eflux, hypertension, TIA, presented to the hospital with history of chest pain started last night. S he reported it is substernal, 9/10, in the middle of her chest, associated with shortness of breath a nd dry cough. Patient denies any radiation to the arm. There was no nausea or vomiting. No headach e or blurred vision. No loss of consciousness. In the emergency room, she was evaluated, she was gi selvin nitroglycerins and aspirin. Her blood pressure was very high at 209/110, and currently her pain almost resolved. Chest x-ray in the ER was unremarkable. Aorta looks dilated. A CT chest to rule o ut dissection was negative, but showed aortic aneurysm involving the ascending aorta as well as the a rch and descending aorta since 2018. There was no PE. Patient was admitted to rule out h er coronary artery syndrome. Patient reported that she was seen initially by Dr. Michel. She was st arted on Holter monitor for history of palpitation. Currently, she is lying in bed. She looks comfo rtable. She has no chest pain, no abdominal pain, no fever, no chills. Review of Systems: Otherwise as below. Past Medical History: CVA; diabetes, diet-controlled; acid reflux; hypertension; TIA. Past Surgical History: None according to the patient. Allergies: TO CODEINE, HYDROCODONE, LISINOPRIL, STADOL, STATIN, BUTORPHANOL TARTRATE. Home Medications: Alprazolam, Protonix, paroxetine, and pentoxifylline. Social History: Patient is . She has 1 kid. She used to be a nurse. She does not smoke or drink or use any drugs. She quit smoking more than 40 years ago. Family History: Father of COPD. Mother of old age. She has history of aortic dissection as well. Review of Systems: Denies any fever, chills, night sweats, dizziness, lightheaded, headache, blurred vision. She does h ave a cough with few sputum. There is no shortness of breath except when she has the chest pain. Sh donovan has the chest pain, but still not as mentioned above. There is no PND, orthopnea, dyspnea on exert ion. No lower extremity edema. No nausea, vomiting, abdominal pain, change in bowel movement, diarr hea, constipation, dysuria, frequency, urgency, hematuria. There is no history of anxiety, but depre ssion. No history of seizure or stroke. Physical Examination: Vital Signs: Blood pressure 159/91, respiratory rate , pulse 92, temperature 97.7, saturat ing 100% on room air. General: She is alert and oriented x3. Does not look in any distress. HEENT: Atraumatic, normocephalic. PERRLA. Oral mucosa is moist. Neck: Supple. No JVD. No bruits. Chest: Clear to auscultation. Good air entry. Heart: Regular rate and rhythm. S1, S2 normal. No gallop or murmur. Abdomen: Soft, nontender. No masses. No hepatosplenomegaly. Positive bowel sounds. Extremities: No clubbing, cyanosis, or edema. No calf tenderness. Neurologic: Grossly intact. Skin: No rash. Mild ecchymosis. Laboratory Data: Currently labs showed CBC within normal except for hemoglobin of 10.2, MCV of 75, w marty blood cells 12.5, platelets 311. PT/INR was normal. Chemistries normal except for GFR of 165, glucose 180, alkaline phosphatase of 139, BNP of . CT angio as above. There is no history of PE. She have aortic dissection. Assessment/plan: This is a 79-year-old female, who presented with chest pain. 1.Chest pain. Rule out myocardial infarction. We will admit the patient to the floor, keep her on aspirin. Given troponin normal, we will not start her on full dose of Lovenox, adjust DVT prophylaxi s dose. She will be on Lopressor as well as p.r.n. nitroglycerin and morphine for chest pain. I john l consult Cardiology given the patient being on the Holter monitor and she was just seen by Dr. Neal blanc recently. Patient will need a stress test if her cardiac enzymes are negative. If her cardiac enz ymes turns to be positive, then she may need cath. 2.History of diet-controlled diabetes mellitus. We will check hemoglobin A1c. If positive, we will place patient on insulin sliding scale. Patient does not take any home medication for diabetes at [facility]. 3.We will check patient's lipid panel and we will start her on statin. 4.Anxiety. We will resume patient's home medication. 5.Macrocytic anemia. We will check the patient's iron profile, check stool occult blood to rule out bleeding. 6.Peripheral vascular disease. Patient on we will continue that. Patient will need to f ollow up with Vascular as outpatient given the aortic dissection. FAISAL/VINICIO Voice ID: [id number]
[2019-07-09 07:21] LABS: Potassium 3.7 mmol/L (3.5-5.1)
[2019-07-09 07:24] LABS: CKMB Creatine Kinase MB 1.1 ng/mL (0.3-3.6); Creatine Phosphokinase 25 U/L (26-192); Troponin I < 0.02 ng/mL (0.0-0.045)
[2019-07-09] MEDS ORDERED: POTASSIUM CL SA 10 MEQ TAB PO ONE (07:24)
[2019-07-09] MEDS: ASPIRIN 325 MG TAB PO SCH (08:16)
[2019-07-09] MEDS: METOPROLOL TAR 25 MG TAB PO SCH ×2 (08:17→21:56)
[2019-07-09] MEDS: ENOXAPARIN 40 MG/0.4 ML SQ SCH (08:17)
[2019-07-09] MEDS: MULTIVITAMIN TAB PO SCH (08:17)
[2019-07-09] MEDS: PARoxetine HCl 10 MG TAB PO SCH (08:18)
[2019-07-09] MEDS: PENTOXIFYLLINE ER 400 MG TAB PO SCH ×2 (08:19→21:55)
--- NOTE | 2019-07-09 14:40 | CON ---
History Of Present Illness: Ms. Sheikh is 79. She has entered the hospital with a chief complaint of chest pain. Since being here, her EKGs and cardiac enzymes are unchanged from older. She has an abnormal EKG with a normal echo and normal nuclear stress test. She has never had myocardial infarct ion, not any other vascular surgeries. Ms. Sheikh has underlying depression and that seems to be fe eling a lot of her other significant problems. She takes Paxil, clonidine, Protonix, alprazolam, Moustapha ntal, multivitamin, simethicone, and clonidine. She is allergic to statins and lisinopril. She has very mild peripheral arterial disease. 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 Patient does not have diabetes. Her dyslipidemia is mild, even though she is intolerant to sta tin medications. Physical Examination: Vital Signs: 5 feet 6, 120 pounds. General: She is alert, oriented. She seems extremely depressed. I asked her about her daughter david t I know her daughter very well and she said, she and her daughter are estranged and are not talking to each other. Impression: The patient is not having angina or an acute coronary syndrome with very severe depressi on. I wonder if some other therapy could be considered for the depression. I do not recommend we en mickey in another nuclear stress test and echo at this point. DARLENE/VINICIO Voice ID: [id number] Report ID: [id number]
--- NOTE | 2019-07-09 16:30 | PN ---
Subjective: Currently, patient is lying in bed. She looks comfortable, but she is not feeling well. She has no chest pain. No abdominal pain. No fever, no chills. Her blood pressure was very high because she refused to take her metoprolol, but now is better. Review of Systems: Otherwise negative. Objective: Vital Signs: Blood pressure 158/87, down to 120/80 after she took her metoprolol, respir atory rate 18, pulse 81, temperature 97.4. General: She is alert and oriented x3. Does not look in any distress. Saturating 95% on room air. HEENT: Atraumatic, normocephalic. PERRLA. Oral mucosa is moist. Neck: Supple. No JVD. No carotid bruits. Chest: Clear to auscultation. Good air entry. Heart: Regular rate and rhythm. S1, S2 normal. No gallop or murmur. Abdomen: Soft, nontender. No masses. No hepatosplenomegaly. Positive bowel sounds. Extremities: No clubbing, cyanosis, or edema. No calf tenderness. Neurologic: Grossly intact. Laboratory Data: Labs today showed CBC within normal except for hemoglobin of 11.8, MCV of 76. Chem istry within normal except for potassium of 3.7, glucose 231, hemoglobin A1c 8.5. Cardiac enzymes ar e negative. LDL 138, HDL of 68. Assessment And Plan: 1.Chest pain, rule out myocardial infarction. Patient's cardiac enzymes are negative. We will proc eed with stress test tomorrow morning. Continue aspirin in the meantime. 2.History of diet-controlled diabetes mellitus. Apparently, she does have . Hemoglobin A 1c 8.5, patient needs to be on medication. I certainly advised to follow up with primary care physic ayaan and start her medication for diabetes. I do not think, she will be able to control it with diet. 3.Hyperlipidemia. LDL is 138, probably the patient needs to be on a statin as outpatient. 4.Anxiety, controlled. 5.Macrocystic anemia. Iron profile showed anemia of chronic disease. She had elevated ferritin wit h low iron. We should consider checking hemoglobin electrophoresis as outpatient to rule out thalass emia. 6.Peripheral vascular disease. Continue patient on pentoxifylline. Patient will need to see a vasc ular surgeon given her aortic dissection as outpatient that was seen on CT scan. We will need to arr feliberto for that before discharge. 7.Expected stay through tomorrow until after done. 8.Cardiac consult ordered, but recommendations still depending. FAISAL/VINICIO Voice ID: [id number] Report ID: [id number]
--- NOTE | 2019-07-09 17:22 | EKG ---
Test Date: 2019-07-08 Test Time: 09:28:14 Drawer Upfitter: MEASUREMENT RESULTS: Intervals: Rate: 97 WI: 206 QRSD: 78 QT: 370 QTc: 469 [place]: P: 51 WI: 206 QRS: -21 T: 83 INTERPRETIVE STATEMENTS: Normal sinus rhythm Minimal voltage criteria for LVH, may be normal variant Inferior infarct, age undetermined Anteroseptal infarct, age undetermined Abnormal ECG Compared to ECG 06/25/2019 14:06:01 Left ventricular hypertrophy now present Sinus tachycardia no longer present Myocardial infarct finding still present Electronically Signed On 07-09-19 17:22:09 CDT by Pawel Michel
[2019-07-09] MEDS: ATORVASTATIN 40 MG TAB PO SCH (21:00)
[2019-07-09] MEDS: ALPRAZOLAM 0.5 MG TABLET PO SCH (21:54)
[2019-07-10 04:33] LABS: Potassium 4.2 mmol/L (3.5-5.1)
[2019-07-10 08:24] VITALS: O2SAT 94
[2019-07-10] MEDS ORDERED: REGADENOSON 0.4 MG/5 ML SYR IV ONE (08:55)
--- NOTE | 2019-07-10 08:55 | EKG ---
Test Date: 2019-07-10 Test Time: 07:42:22 Recruitment Internship: MORAIMA MEASUREMENT RESULTS: Intervals: Rate: 62 MT: 248 QRSD: 76 QT: 426 QTc: 432 [place]: P: 39 MT: 248 QRS: -17 T: 70 INTERPRETIVE STATEMENTS: Sinus rhythm with 1st degree AV block Inferior infarct, age undetermined Possible Anterior infarct, age undetermined Abnormal ECG Compared to ECG 07/08/2019 09:28:14 First degree AV block now present Left ventricular hypertrophy no longer present Myocardial infarct finding still present Electronically Signed On 07-10-19 08:54:03 CDT by Pawel Michel
[2019-07-10] MEDS: ENOXAPARIN 40 MG/0.4 ML SQ SCH (09:00)
--- NOTE | 2019-07-10 10:46 | RAD REPORT ---
EXAM DESCRIPTION: NM - Rest Stress Cardiac Imaging - 07/10/2019 10:37 am CLINICAL HISTORY: Chest pain COMPARISON: March 28, 2019 TECHNIQUE: The patient was administered approximately 10 mCi of Tc 99m Sestamibi prior to resting SP ECT imaging of the heart. The patient was then administered approximately 30 mCi of Tc 99m Sestamibi following exercise or pharmacologic stress. Multiplanar SPECT images were reviewed. FINDINGS: The end diastolic volume is 83 ml, the end systolic volume is 39 ml, and the ejection frac tion is 53 %. End-diastolic volume has decreased slightly from the March study. Ejection fraction amaury ures lower than March. Current findings are still within normal range. No stress-induced ischemic change confirmed on this study. Thinning at the apex is again noted. Small fixed defect at the anteroseptal apex does not change between rest and stress imaging. This could be a small focus of scarred myocardium since the March study. Diminished activity along the inferior wal l does not change between rest and stress imaging. This is favored to be attenuation artifact from th e diaphragm rather than inferior wall scarring. IMPRESSION: No stress-induced ischemic change identified. Ventricular volumes have increased slightly from March and ejection fraction has decreased from March. However, ventricular volumes and ejection fraction are still in normal range. Small fixed defect of mildly diminished activity is seen anteroseptal wall on both rest and stress im aging. Small focus of scarring is suspected. Fixed diminished activity in the inferior wall at the ba se is favored to be attenuation artifact from the diaphragm.
[2019-07-10] MEDS ORDERED: CLONIDINE 0.2 MG/PATCH TD SCH (11:00)
[2019-07-10] MEDS: MULTIVITAMIN TAB PO SCH (11:04)
[2019-07-10] MEDS: METOPROLOL TAR 25 MG TAB PO SCH (11:04)
[2019-07-10] MEDS: PENTOXIFYLLINE ER 400 MG TAB PO SCH (11:04)
[2019-07-10] MEDS: ASPIRIN 325 MG TAB PO SCH (11:04)
[2019-07-10] MEDS: PARoxetine HCl 10 MG TAB PO SCH (11:04)
--- NOTE | 2019-07-10 11:18 | TREADPHA ---
DX: CHEST PAIN Date of Study: 07/10/2019 Ht: 5 6 Wt: 120 lb 0 oz Consulting Physician: CANELO MEDICATIONS: TYLENOL, XANAX, ASPIRIN, LIPITOR, CATAPRES, LOVENOX, LOPRESOR, ZOFRAN, NITROSTAT, PAXIL, TRENTAL HISTORY: CEREBRAL VASCULAR ACCIDENT, NON INSULIN DEPENDENT DIABETES MELLITUS, GERD, HYPERTENSION, TRANSIENT ISCHEMIC ATTACK AND AORTIC ANEURYSM. PHYSICIAL EXAMINATION: RESTING B.P.: 170/82 RESTING H.R.: 68 RESTING EKG: SINUS RYTHTM, FIRST DEGREE AV BLOCK, ANTERIOR INFERIOR MYOCARDIAL INFARCTION. PROTOCOL: LEXISCAN EXERCISE TIME: 3:30 B.P. AT PEAK STRESS: 146/74 IMPRESSION: LEXISCAN STRESS TEST PERFORMED PER PROTOCOL. CARDIOLITE INJECTED PER PROTOCOL. NO SUPRAVENTRICULAR TACHYCARDIA. NO ARRYTHMIAS NOTED.PATIENT DENIED CHEST PAIN. TOLERATED WELL. SEE NUCLEAR MEDICINE REPORT. NON DIAGNOSTIC EKG WITH LEXISCAN STRESS.
[2019-07-10 12:18] VITALS: BP 134/65; TEMP 98.1
--- NOTE | 2019-07-10 14:17 | P.SSS ---
Patient History Date of Service: 07/10/19 Primary Care Provider: Dr Soliman Reason for admission: Chest pain History of Present Illness: This is a 79-year-old female with history of multiple medical problems including palpitation, anxiety, peripheral vascular disease, diet-controlled diabetes mellitus, acid reflux, hypertension, TIA, presented to the hospital with history of chest pain started last night. She reported it is substernal, 9 /10, in the middle of her chest, associated with shortness of breath and dry cough. Patient denies any radiation to the arm. There was no nausea or vomiting. No headache or blurred vision. No loss of consciousness. In the emergency room, she was evaluated, she was given nitroglycerins and aspirin. Her blood pressure was very high at 209/110, and currently her pain almost resolved. Chest x-ray in the ER was unremarkable. Aorta looks dilated. A CT chest to rule out dissection was negative, but showed aortic aneurysm involving the ascending aorta as well as the arch and descending aorta since 2018. There was no PE. Patient was admitted to rule out her coronary artery syndrome. Patient reported that she was seen initially by Dr. Michel. She was started on Holter monitor for history of palpitation. Currently, she is lying in bed. She looks comfortable. She has no chest pain, no abdominal pain, no fever, no chills. Allergies Ayxlgco-Bsp-Fev Reductase Inhibitor Allergy (Mild, Verified 07/09/19 06:58) Rash lisinopril Allergy (Verified 02/17/19 05:06) Nausea/Vomiting Sulfa (Sulfonamide Antibiotics) Allergy (Verified 02/17/19 05:06) Itching/Hives/Rash acetaminophen Adverse Reaction (Verified 02/17/19 05:06) Nausea/Vomiting butorphanol Adverse Reaction (Verified 02/17/19 05:06) Nausea/Vomiting codeine Adverse Reaction (Verified 02/17/19 05:06) Nausea/Vomiting hydrocodone Adverse Reaction (Verified 02/17/19 05:06) Nausea/Vomiting vancomycin Adverse Reaction (Verified 02/28/19 12:53) Rash Home Medications: PARoxetine HCl [Paxil*] 10 mg PO DAILY 07/17/18 Clonidine Patch [Catapres-Tts 2*] 1 patch TOP SEECOM 01/03/19 Pantoprazole [Protonix Tab*] 40 mg PO DAILY #30 tab 01/06/19 Alprazolam [Xanax] 0.25 mg PO BEDTIME PRN 03/27/19 Pentoxifylline 400 mg PO BID #60 tablet.er 03/28/19 Multivitamin [Daily Multiple Vitamin] 1 each PO DAILY #30 tablet 03/29/19 Simethicone [Gas-X] 125 mg PO TID 05/29/19 Clonidine HCl [Catapres] 0.1 mg PO Q8HP PRN #12 tablet 05/31/19 - Past Medical/Surgical History Has patient received pneumonia vaccine in the past: Yes Diabetic: Yes -: stroke -: aneurysms-thoracic and abdominal -: meniere's disease -: anxiety -: HTN -: NIIDM >10 yrs. oral control -: GERD -: hysterectomy -: hemorrhoidectomy -: cosmetic surgeries -: AAA REPAIR 03/2018 -: polyp removal. - Family History Mother -: Hypertension, Lung disease, Diabetes Notes: DVT, Afib, COPD Father -: Heart disease, Lung disease Notes: COPD - Social History Smoking Status: Former smoker Alcohol use: No CD- Drugs: No Caffeine use: No Place of Residence: Home Review of Systems 10-point ROS is otherwise unremarkable Physical Examination - Vital Signs Temperature: 98.1 F Blood Pressure: 134/65 Pulse: 83 Respirations: 18 Pulse Ox (%): 96 - Physical Exam General: Alert, In no apparent distress HEENT: Atraumatic, PERRLA, Mucous membr. moist/pink, EOMI, Sclerae nonicteric Neck: Supple, 2+ carotid pulse no bruit, No LAD, Without JVD or thyroid abnormality Respiratory: Clear to auscultation bilaterally, Normal air movement Cardiovascular: Regular rate/rhythm, Normal S1 S2 Gastrointestinal: Normal bowel sounds, No tenderness Musculoskeletal: No tenderness Integumentary: No rashes Neurological: Normal gait, Normal speech, Normal strength at 5/5 x4 extr, Normal tone, Normal affect Lymphatics: No axilla or inguinal lymphadenopathy - Diagnosis (Problem(s)) (1) Chest pain Status: Acute Qualifiers: Chest pain type: other chest pain Qualified Code(s): R07.89 - Other chest pain; R07.8 - Other chest pain (2) Dyslipidemia Onset Date: 10/23/14 Status: Chronic (3) Hypertension Onset Date: 02/03/15 Status: Chronic Qualifiers: Hypertension type: essential hypertension Qualified Code(s): I10 - Essential (primary) hypertension Treatment Summary: Overall during the hospital stay patient main stable Patient was initially admitted to the hospital for chest pain ACS. Cardiology was consulted. Stress test was done here in the hospital. Patient's stress test was negative for any acute abnormality. At that time cardiology recommended the patient to be discharged home under stable condition and her symptoms are most likely secondary to her major depressive disorder. Patient was asked to follow up with primary care provider and consider adding more antidepressant to her regimen for cognitive behavioral therapy. Patient demonstrate understanding and thus was discharged home under stable condition. - Disposition Disposition: ROUTINE DISCHARGE Condition: GOOD Diet: Regular Activity: Ad gerardo
--- OUTSIDE RECORDS SUMMARY | 2019-07-30 03:06 | XMS REPORT ---
:1940 [facility] Address [address] Delgado [address] [place] [id number] Care Team Providers Name Role Phone DOMINIC [...] ID: VIEW, NON DEPT EVARShould this be [phone] Chest one view performed at the INDICATION: [...] Talavera Verified Date/Time: 04/19/2018 10:16:05 Reading Location: [facility] Radiology Reading Room PHORUS 2018-04-19 05:21:00 Test Item Value Reference Range Comments PHOSPHORUS (BEAKER) (test pzhv=871) 4.0 mg/dL 2.3-4.7 [id number] 05:21:00 Test Item Value Reference Range Comments MAGNESIUM (BEAKER) (test uxvj=863) 2.2 mg/dL 1.6-2.6 BASIC METABOLIC [id number] 05:21:00 Test Item Value Reference Range Comments SODIUM (BEAKER) (test 141 meq/L 136-145 sszy=553) POTASSIUM (BEAKER) (test 3.6 meq/L 3.5-5.1 weiu=092) CHLORIDE (BEAKER) (test 106 meq/L 98-107 xeuh=308) CO2 (BEAKER) (test 28 meq/L 22-29 pzuw=040) BLOOD UREA NITROGEN 20 mg/dL 7-21 (BEAKER) (test jwml=276) CREATININE (BEAKER) (test 0.87 mg/dL 0.57-1.25 qgmh=646) GLUCOSE RANDOM (BEAKER) 122 mg/dL 70-105 (test axum=532) CALCIUM (BEAKER) (test 9.0 mg/dL 8.4-10.2 fgej=539) EGFR (BEAKER) (test 63 mL/min/1.73 sq m ESTIMATED GFR IS NOT vhll=2892) ACCURATE CREATININE CLEARANCE IN PREDICTING GLOMERULAR FILTRATION RATE. ESTIMATED GFR IS NOT APPLICABLE FOR DIALYSIS PATIENTS. [id number] 04:58:00 Test Item Value Reference Range Comments PARTIAL THROMBOPLASTIN TIME (BEAKER) (test 36.6 seconds 22.5-36.0 ulpj=705) PROTHROMBIN [id number] 04:57:00 Test Item Value Reference Range Comments PROTIME (BEAKER) (test xfys=567) 15.9 seconds 11.7-14.7 INR (BEAKER) (test uwgp=869) 1.3 <=5.9 RECOMMENDED COUMADIN/WARFARIN INR THERAPY RANGESSTANDARD DOSE: 2.0 - 3.0 Includes: PROPHYLAXIS forvenous thrombosis, systemic embolization; TREATMENT for venous thrombosis and/or pulmonary embolus.HIGH RISK: Target INR is 2.5-3.5 for patients with mechanical heart valves.CBC (HEMOGRAM ONLY)2018-04-19 04:47:00 Test Item Value Reference Range Comments WHITE BLOOD CELL COUNT (BEAKER) (test bmtg=999) 9.5 K/ L 3.5-10.5 RED BLOOD CELL COUNT (BEAKER) (test ozdf=723) 3.64 M/ L 3.93-5.22 HEMOGLOBIN (BEAKER) (test rxut=857) 10.6 GM/DL 11.2-15.7 HEMATOCRIT (BEAKER) (test inem=799) 33.8 % 34.1-44.9 MEAN CORPUSCULAR VOLUME (BEAKER) (test olee=855) 92.9 fL 79.4-94.8 MEAN CORPUSCULAR HEMOGLOBIN (BEAKER) (test 29.1 pg 25.6-32.2 qmml=737) MEAN CORPUSCULAR HEMOGLOBIN CONC (BEAKER) (test 31.4 GM/DL 32.2-35.5 naus=961) RED CELL DISTRIBUTION WIDTH (BEAKER) (test 14.1 % 11.7-14.4 tmfx=860) PLATELET COUNT (BEAKER) (test bary=932) 232 K/CU MM 150-450 MEAN PLATELET VOLUME (BEAKER) (test zxaa=809) 10.9 fL 9.4-12.3 NUCLEATED RED BLOOD CELLS (BEAKER) (test 0 /100 WBC 0-0 rzdz=621) RAD, CHEST, 1 VIEW, NON [id number] 08:00:00Reason for exam:->S/P EVARShould this be performed [...] Talavera Verified Date/Time: 04/18/2018 08:00:53 Reading Location: [facility] Radiology Reading Room [id number] 05:25:00 Test Item Value Reference Range Comments PHOSPHORUS (BEAKER) (test lhyk=327) 3.6 mg/dL 2.3-4.7 [id number] 05:25:00 Test Item Value Reference Range Comments MAGNESIUM (BEAKER) (test geoy=682) 2.2 mg/dL 1.6-2.6 BASIC METABOLIC [id number] 05:25:00 Test Item Value Reference Range Comments SODIUM (BEAKER) (test 139 meq/L 136-145 blgy=988) POTASSIUM (BEAKER) (test 3.2 meq/L 3.5-5.1 czsj=964) CHLORIDE (BEAKER) (test 103 meq/L 98-107 rfuz=379) CO2 (BEAKER) (test 25 meq/L 22-29 vncd=756) BLOOD UREA NITROGEN 17 mg/dL 7-21 (BEAKER) (test ldrh=324) CREATININE (BEAKER) (test 0.86 mg/dL 0.57-1.25 lhfr=691) GLUCOSE RANDOM (BEAKER) 150 mg/dL 70-105 (test ixlv=450) CALCIUM (BEAKER) (test 9.6 mg/dL 8.4-10.2 rhjh=583) EGFR (BEAKER) (test 64 mL/min/1.73 sq m ESTIMATED GFR IS NOT tmgo=1148) ACCURATE CREATININE CLEARANCE IN PREDICTING GLOMERULAR FILTRATION RATE. ESTIMATED GFR IS NOT APPLICABLE FOR DIALYSIS PATIENTS. [id number] 05:06:00 Test Item Value Reference Range Comments PARTIAL THROMBOPLASTIN TIME (BEAKER) (test 36.5 seconds 22.5-36.0 lksg=492) PROTHROMBIN [id number] 05:05:00 Test Item Value Reference Range Comments PROTIME (BEAKER) (test txwj=864) 16.5 seconds 11.7-14.7 INR (BEAKER) (test uzgn=115) 1.3 <=5.9 RECOMMENDED COUMADIN/WARFARIN INR THERAPY RANGESSTANDARD DOSE: 2.0 - 3.0 Includes: PROPHYLAXIS forvenous thrombosis, systemic embolization; TREATMENT for venous thrombosis and/or pulmonary embolus.HIGH RISK: Target INR is 2.5-3.5 for patients with mechanical heart valves.CBC (HEMOGRAM ONLY)2018-04-18 04:52:00 Test Item Value Reference Range Comments WHITE BLOOD CELL COUNT (BEAKER) (test bqpi=180) 11.2 K/ L 3.5-10.5 RED BLOOD CELL COUNT (BEAKER) (test apue=055) 3.90 M/ L 3.93-5.22 HEMOGLOBIN (BEAKER) (test mzrf=591) 11.3 GM/DL 11.2-15.7 HEMATOCRIT (BEAKER) (test tswq=147) 35.7 % 34.1-44.9 MEAN CORPUSCULAR VOLUME (BEAKER) (test ohtp=131) 91.5 fL 79.4-94.8 MEAN CORPUSCULAR HEMOGLOBIN (BEAKER) (test 29.0 pg 25.6-32.2 wgkk=777) MEAN CORPUSCULAR HEMOGLOBIN CONC (BEAKER) (test 31.7 GM/DL 32.2-35.5 jzbk=333) RED CELL DISTRIBUTION WIDTH (BEAKER) (test 14.2 % 11.7-14.4 vrrd=707) PLATELET COUNT (BEAKER) (test ktlv=189) 208 K/CU MM 150-450 MEAN PLATELET VOLUME (BEAKER) (test cdqp=009) 10.6 fL 9.4-12.3 NUCLEATED RED BLOOD CELLS (BEAKER) (test 0 /100 WBC 0-0 zosg=085) RAD, CHEST, 1 VIEW, NON [id number] 10:31:00Reason for exam:->S/P EVARShould this be performed at the bedside?->YesFINAL REPORT Chest, one view. HISTORY: Status post aortic repair COMPARISON: 2017 IMPRESSION: No significant change. Unchanged tortuosity and ectasia of the thoracic aorta.Mild interstitial edema. No large pleural effusion or pneumothorax. Signed: Gera Hernandez MDReport Verified Date/Time: 04/17/2018 10: 31:41 Reading Location: [facility] C013Y CT Body Reading Room [id number] 06: 43:00 Test Item Value Reference Range Comments PHOSPHORUS (BEAKER) (test egfo=833) 3.3 mg/dL 2.3-4.7 [id number] 06:43:00 Test Item Value Reference Range Comments MAGNESIUM (BEAKER) (test peba=519) 2.0 mg/dL 1.6-2.6 [id number] 06:23:00 Test Item Value Reference Range Comments PARTIAL THROMBOPLASTIN TIME (BEAKER) (test 36.4 seconds 22.5-36.0 ghhd=203) PROTHROMBIN TIME/[id number] 06:22:00 Test Item Value Reference Range Comments PROTIME (BEAKER) (test icrc=169) 17.3 seconds 11.7-14.7 INR (BEAKER) (test thij=661) 1.4 <=5.9 RECOMMENDED COUMADIN/WARFARIN INR THERAPY RANGESSTANDARD DOSE: 2.0 - 3.0 Includes: PROPHYLAXIS forvenous thrombosis, systemic embolization; TREATMENT for venous thrombosis and/or pulmonary embolus.HIGH RISK: Target INR is 2.5-3.5 for patients with mechanical heart valves.CBC (HEMOGRAM ONLY)2018-04-17 06:13:00 Test Item Value Reference Range Comments WHITE BLOOD CELL COUNT (BEAKER) (test utpm=615) 13.2 K/ L 3.5-10.5 RED BLOOD CELL COUNT (BEAKER) (test etlk=497) 3.84 M/ L 3.93-5.22 HEMOGLOBIN (BEAKER) (test wwtn=495) 11.5 GM/DL 11.2-15.7 HEMATOCRIT (BEAKER) (test oofd=588) 34.9 % 34.1-44.9 MEAN CORPUSCULAR VOLUME (BEAKER) (test tnrw=699) 90.9 fL 79.4-94.8 MEAN CORPUSCULAR HEMOGLOBIN (BEAKER) (test 29.9 pg 25.6-32.2 cvov=747) MEAN CORPUSCULAR HEMOGLOBIN CONC (BEAKER) (test 33.0 GM/DL 32.2-35.5 klxu=545) RED CELL DISTRIBUTION WIDTH (BEAKER) (test 14.0 % 11.7-14.4 acud=985) PLATELET COUNT (BEAKER) (test lmbj=495) 201 K/CU MM 150-450 MEAN PLATELET VOLUME (BEAKER) (test nawp=874) 10.6 fL 9.4-12.3 NUCLEATED RED BLOOD CELLS (BEAKER) (test 0 /100 WBC 0-0 cmei=154) RAD, CHEST, 1 VIEW, NON [id number] 09:02:00Reason for exam:->S/P EVARShould this be performed [...] MDReport Verified Date/Time: 04/16/2018 09:02:11 Reading Location: [facility] B1 C013Y CT Body Reading Room [id number] 06:11:00 Test Item Value Reference Range Comments PHOSPHORUS (BEAKER) (test mbab=312) 1.9 mg/dL 2.3-4.7 [id number] 06:11:00 Test Item Value Reference Range Comments MAGNESIUM (BEAKER) (test ymfo=332) 2.0 mg/dL 1.6-2.6 BASIC METABOLIC [id number] 06:11:00 Test Item Value Reference Range Comments SODIUM (BEAKER) (test 137 meq/L 136-145 dfsp=949) POTASSIUM (BEAKER) (test 3.2 meq/L 3.5-5.1 jaxe=957) CHLORIDE (BEAKER) (test 104 meq/L 98-107 mzgy=617) CO2 (BEAKER) (test 24 meq/L 22-29 ppal=112) BLOOD UREA NITROGEN 7 mg/dL 7-21 (BEAKER) (test ptoq=676) CREATININE (BEAKER) (test 0.86 mg/dL 0.57-1.25 cwkb=006) GLUCOSE RANDOM (BEAKER) 179 mg/dL 70-105 (test vbab=731) CALCIUM (BEAKER) (test 9.0 mg/dL 8.4-10.2 kmpd=379) EGFR (BEAKER) (test 64 mL/min/1.73 sq m ESTIMATED GFR IS NOT usbx=0958) ACCURATE CREATININE CLEARANCE IN PREDICTING GLOMERULAR FILTRATION RATE. ESTIMATED GFR IS NOT APPLICABLE FOR DIALYSIS PATIENTS. [id number] 05:46:00 Test Item Value Reference Range Comments PARTIAL THROMBOPLASTIN TIME (BEAKER) (test 32.0 seconds 22.5-36.0 kzey=085) PROTHROMBIN TIME/[id number] 05:45:00 Test Item Value Reference Range Comments PROTIME (BEAKER) (test zqsu=775) 15.0 seconds 11.7-14.7 INR (BEAKER) (test rdjp=927) 1.2 <=5.9 RECOMMENDED COUMADIN/WARFARIN INR THERAPY RANGESSTANDARD DOSE: 2.0 - 3.0 Includes: PROPHYLAXIS forvenous thrombosis, systemic embolization; TREATMENT for venous thrombosis and/or pulmonary embolus.HIGH RISK: Target INR is 2.5-3.5 for patients with mechanical heart valves.CBC (HEMOGRAM ONLY)2018-04-16 05:31:00 Test Item Value Reference Range Comments WHITE BLOOD CELL COUNT (BEAKER) (test tjgw=072) 12.0 K/ L 3.5-10.5 RED BLOOD CELL COUNT (BEAKER) (test mclr=524) 4.19 M/ L 3.93-5.22 HEMOGLOBIN (BEAKER) (test cost=449) 12.4 GM/DL 11.2-15.7 HEMATOCRIT (BEAKER) (test aanp=906) 38.6 % 34.1-44.9 MEAN CORPUSCULAR VOLUME (BEAKER) (test hman=167) 92.1 fL 79.4-94.8 MEAN CORPUSCULAR HEMOGLOBIN (BEAKER) (test 29.6 pg 25.6-32.2 cdzx=560) MEAN CORPUSCULAR HEMOGLOBIN CONC (BEAKER) (test 32.1 GM/DL 32.2-35.5 gplw=595) RED CELL DISTRIBUTION WIDTH (BEAKER) (test 14.0 % 11.7-14.4 kyxs=629) PLATELET COUNT (BEAKER) (test gkjj=990) 223 K/CU MM 150-450 MEAN PLATELET VOLUME (BEAKER) (test eobv=930) 10.3 fL 9.4-12.3 NUCLEATED RED BLOOD CELLS (BEAKER) (test 0 /100 WBC 0-0 jfgm=647) [id number] 13:56:00 Test Item Value Reference Range Comments ACTIVATED CLOTTING TIME [address] [facility] [address] (BEAKER) (test xnxj=569) [place] [address] RAD, ABDOMEN/KUB, 1 VIEW [id number] 12:39:00Reason for exam:->Postop AAAFINAL REPORT CLINICAL HISTORY: [...] GodwinMDReport Verified Date/Time: 2017 12:39:57 Reading Location: [facility] Radiology Reading Room RAD, CHEST , 1 VIEW, NON [id number] 12:38:00For chest painReason for exam:->post opShould this be performed at the bedside?->YesFINAL REPORT CLINICAL HISTORY: post op TECHNIQUE: 1 view of the chest. COMPARISON: 04/10/2018 IMPRESSION: There are no focal infiltrates or effusions. Cardiomegaly is again seen with tortuosity of the thoracic aorta. Signed: Hardik Godwin MDReport Verified Date/Time: 04/15/201812:38:40 Reading Location: [facility] Radiology Reading Room [id number] 11:51:00 Test Item Value Reference Range Comments PHOSPHORUS (BEAKER) (test ezjt=945) 3.2 mg/dL 2.3-4.7 BASIC METABOLIC [id number] 11:51:00 Test Item Value Reference Range Comments SODIUM (BEAKER) (test 140 meq/L 136-145 cmfl=442) POTASSIUM (BEAKER) (test 3.8 meq/L 3.5-5.1 pacd=474) CHLORIDE (BEAKER) (test 109 meq/L 98-107 heki=114) CO2 (BEAKER) (test 24 meq/L 22-29 lush=272) BLOOD UREA NITROGEN 12 mg/dL 7-21 (BEAKER) (test guby=985) CREATININE (BEAKER) (test 0.77 mg/dL 0.57-1.25 wson=300) GLUCOSE RANDOM (BEAKER) 176 mg/dL 70-105 (test dqxc=129) CALCIUM (BEAKER) (test 9.7 mg/dL 8.4-10.2 zkrw=183) EGFR (BEAKER) (test 73 mL/min/1.73 sq m ESTIMATED GFR IS NOT sgyo=8275) ACCURATE CREATININE CLEARANCE IN PREDICTING GLOMERULAR FILTRATION RATE. ESTIMATED GFR IS NOT APPLICABLE FOR DIALYSIS PATIENTS. CBC W/PLT COUNT & AUTO [id number] 11:23:00 Test Item Value Reference Range Comments WHITE BLOOD CELL COUNT (BEAKER) (test nasf=855) 12.0 K/ L 3.5-10.5 RED BLOOD CELL COUNT (BEAKER) (test dwlg=605) 3.84 M/ L 3.93-5.22 HEMOGLOBIN (BEAKER) (test olgp=968) 11.4 GM/DL 11.2-15.7 HEMATOCRIT (BEAKER) (test eegq=423) 35.7 % 34.1-44.9 MEAN CORPUSCULAR VOLUME (BEAKER) (test fzfv=922) 93.0 fL 79.4-94.8 MEAN CORPUSCULAR HEMOGLOBIN (BEAKER) (test 29.7 pg 25.6-32.2 nrkx=276) MEAN CORPUSCULAR HEMOGLOBIN CONC (BEAKER) (test 31.9 GM/DL 32.2-35.5 lfdn=180) RED CELL DISTRIBUTION WIDTH (BEAKER) (test 14.1 % 11.7-14.4 acwt=406) PLATELET COUNT (BEAKER) (test kkqh=313) 207 K/CU MM 150-450 MEAN PLATELET VOLUME (BEAKER) (test nkdw=001) 10.7 fL 9.4-12.3 NUCLEATED RED BLOOD CELLS (BEAKER) (test 0 /100 WBC 0-0 xbqe=022) NEUTROPHILS RELATIVE PERCENT (BEAKER) (test 77 % lsyc=799) LYMPHOCYTES RELATIVE PERCENT (BEAKER) (test 15 % diam=377) MONOCYTES RELATIVE PERCENT (BEAKER) (test 6 % vnrf=851) EOSINOPHILS RELATIVE PERCENT (BEAKER) (test 1 % hrww=480) BASOPHILS RELATIVE PERCENT (BEAKER) (test 1 % whmv=762) NEUTROPHILS ABSOLUTE COUNT (BEAKER) (test 9.14 K/ L 1.56-6.13 xpra=570) LYMPHOCYTES ABSOLUTE COUNT (BEAKER) (test 1.78 K/ L 1.18-3.74 hekz=050) MONOCYTES ABSOLUTE COUNT (BEAKER) (test 0.72 K/ L 0.24-0.36 lmkn=433) EOSINOPHILS ABSOLUTE COUNT (BEAKER) (test 0.16 K/ L 0.04-0.36 tnda=200) BASOPHILS ABSOLUTE COUNT (BEAKER) (test 0.06 K/ L 0.01-0.08 xlch=493) IMMATURE GRANULOCYTES-RELATIVE PERCENT (BEAKER) 1 % 0-1 (test mofg=4051) PROTHROMBIN [id number] 11:22:00 Test Item Value Reference Range Comments PROTIME (BEAKER) (test ymln=822) 15.7 seconds 11.7-14.7 INR (BEAKER) (test yvxu=741) 1.3 <=5.9 RECOMMENDED COUMADIN/WARFARIN INR THERAPY RANGESSTANDARD DOSE: 2.0 - 3.0 Includes: PROPHYLAXIS forvenous thrombosis, systemic embolization; TREATMENT for venous thrombosis and/or pulmonary embolus.HIGH RISK: Target INR is 2.5-3.5 for patients with mechanical heart valves.CALCIUM, [id number] 11:06:00 Test Item Value Reference Range Comments CALCIUM IONIZED (BEAKER) (test hmgc=965) 1.25 mmol/L 1.12-1.27 PH, BLOOD (BEAKER) (test qsoo=6156) 7.37 HEPATITIS C [id number] 15:18:00 Test Item Value Reference Range Comments HEPATITIS C ANTIBODY (BEAKER) (test htuk=298) Nonreactive Nonreactive HEPATITIS B [id number] 15:18:00 Test Item Value Reference Range Comments HEPATITIS B CORE TOTAL ANTIBODY (BEAKER) (test Nonreactive Nonreactive talm=942) HEPATITIS B SURFACE ANTIBODY (BEAKER) (test 63.1 mIU/mL <8.0 flaz=510) HEPATITIS B SURFACE ANTIGEN (2) (BEAKER) (test Nonreactive Nonreactive xtpj=9159) HIV-1 ANTIGEN WITH HIV-1/2 [id number] 15:18:00 Test Item Value Reference Range Comments HIV-1 ANTIGEN WITH HIV 1\T\2 ANTIBODY (2) Nonreactive Nonreactive (BEAKER) (test klyb=4318) [id number] 15:08:00 Test Item Value Reference Range Comments LIPASE (BEAKER) (test jfkv=928) 10 U/L 8-78 [id number] 15:08:00 Test Item Value Reference Range Comments AMYLASE (BEAKER) (test qhup=196) 40 U/L 25-125 BASIC METABOLIC [id number] 15:08:00 Test Item Value Reference Range Comments SODIUM (BEAKER) (test 141 meq/L 136-145 afzx=659) POTASSIUM (BEAKER) (test 3.6 meq/L 3.5-5.1 ofel=058) CHLORIDE (BEAKER) (test 104 meq/L 98-107 mgav=097) CO2 (BEAKER) (test 27 meq/L 22-29 anpv=637) BLOOD UREA NITROGEN 12 mg/dL 7-21 (BEAKER) (test ksur=245) CREATININE (BEAKER) (test 0.86 mg/dL 0.57-1.25 fded=435) GLUCOSE RANDOM (BEAKER) 112 mg/dL 70-105 (test mysh=344) CALCIUM (BEAKER) (test 9.8 mg/dL 8.4-10.2 lzph=529) EGFR (BEAKER) (test 64 mL/min/1.73 sq m ESTIMATED GFR IS NOT sxts=6677) ACCURATE CREATININE CLEARANCE IN PREDICTING GLOMERULAR FILTRATION RATE. ESTIMATED GFR IS NOT APPLICABLE FOR DIALYSIS PATIENTS. HEPATIC FUNCTION [id number] 15:08:00 Test Item Value Reference Range Comments TOTAL PROTEIN (BEAKER) (test bmbn=123) 7.1 gm/dL 6.0-8.3 ALBUMIN (BEAKER) (test sqhe=8206) 4.0 g/dL 3.5-5.0 BILIRUBIN TOTAL (BEAKER) (test qjfv=528) 0.4 mg/dL 0.2-1.2 BILIRUBIN DIRECT (BEAKER) (test nbmg=477) 0.2 mg/dL 0.1-0.5 ALKALINE PHOSPHATASE (BEAKER) (test iwoa=988) 135 U/L 40-150 AST (SGOT) (BEAKER) (test cebd=123) 22 U/L 5-34 ALT (SGPT) (BEAKER) (test ezyk=126) 22 U/L 6-55 LACTATE DEHYDROGENASE (LDH)2018-04-14 15:08:00 Test Item Value Reference Range Comments LACTATE DEHYDROGENASE (BEAKER) (test neoe=823) 238 U/L 125-220 [id number] 14:47:00 Test Item Value Reference Range Comments PARTIAL THROMBOPLASTIN TIME (BEAKER) (test 31.9 seconds 22.5-36.0 wegg=571) PROTHROMBIN [id number] 14:46:00 Test Item Value Reference Range Comments PROTIME (BEAKER) (test ejua=552) 14.1 seconds 11.7-14.7 INR (BEAKER) (test ujua=334) 1.1 <=5.9 RECOMMENDED COUMADIN/WARFARIN INR THERAPY RANGESSTANDARD DOSE: 2.0 - 3.0 Includes: PROPHYLAXIS forvenous thrombosis, systemic embolization; TREATMENT for venous thrombosis and/or pulmonary embolus.HIGH RISK: Target INR is 2.5-3.5 for patients with mechanical heart valves.RETICULOCYTE [id number] 14:36:00 Test Item Value Reference Range Comments RETICULOCYTE COUNT PCT (BEAKER) (test tanm=590) 1.0 % 0.5-1.7 CBC W/PLT COUNT & AUTO [id number] 14:36:00 Test Item Value Reference Range Comments WHITE BLOOD CELL COUNT (BEAKER) (test noqc=249) 9.3 K/ L 3.5-10.5 RED BLOOD CELL COUNT (BEAKER) (test iabf=602) 4.05 M/ L 3.93-5.22 HEMOGLOBIN (BEAKER) (test cqiz=966) 12.2 GM/DL 11.2-15.7 HEMATOCRIT (BEAKER) (test jmyr=818) 37.2 % 34.1-44.9 MEAN CORPUSCULAR VOLUME (BEAKER) (test xrls=971) 91.9 fL 79.4-94.8 MEAN CORPUSCULAR HEMOGLOBIN (BEAKER) (test 30.1 pg 25.6-32.2 gwpf=148) MEAN CORPUSCULAR HEMOGLOBIN CONC (BEAKER) (test 32.8 GM/DL 32.2-35.5 jblc=855) RED CELL DISTRIBUTION WIDTH (BEAKER) (test 14.2 % 11.7-14.4 xpaa=160) PLATELET COUNT (BEAKER) (test dqer=954) 259 K/CU MM 150-450 MEAN PLATELET VOLUME (BEAKER) (test vews=838) 11.1 fL 9.4-12.3 NUCLEATED RED BLOOD CELLS (BEAKER) (test 0 /100 WBC 0-0 nggs=030) NEUTROPHILS RELATIVE PERCENT (BEAKER) (test 70 % gbge=067) LYMPHOCYTES RELATIVE PERCENT (BEAKER) (test 19 % mjhc=809) MONOCYTES RELATIVE PERCENT (BEAKER) (test 8 % ejor=388) EOSINOPHILS RELATIVE PERCENT (BEAKER) (test 2 % xzie=291) BASOPHILS RELATIVE PERCENT (BEAKER) (test 1 % midu=536) NEUTROPHILS ABSOLUTE COUNT (BEAKER) (test 6.49 K/ L 1.56-6.13 fotg=876) LYMPHOCYTES ABSOLUTE COUNT (BEAKER) (test 1.74 K/ L 1.18-3.74 oxjm=714) MONOCYTES ABSOLUTE COUNT (BEAKER) (test 0.78 K/ L 0.24-0.36 rltu=654) EOSINOPHILS ABSOLUTE COUNT (BEAKER) (test 0.14 K/ L 0.04-0.36 jgpc=588) BASOPHILS ABSOLUTE COUNT (BEAKER) (test 0.07 K/ L 0.01-0.08 mqkp=866) IMMATURE GRANULOCYTES-RELATIVE PERCENT (BEAKER) 0 % 0-1 (test qdsz=9061) URINALYSIS W/ [id number] 14:25:00 Test Item Value Reference Range Comments COLOR (BEAKER) (test stcc=173) Yellow CLARITY (BEAKER) (test vcct=532) Clear SPECIFIC GRAVITY UA (BEAKER) (test mwjr=613) 1.010 1.001-1.035 PH UA (BEAKER) (test opoh=448) 6.5 5.0-8.0 PROTEIN UA (BEAKER) (test tsjc=068) 20 mg/dL Negative GLUCOSE UA (BEAKER) (test tvop=566) Negative Negative KETONES UA (BEAKER) (test cjqf=429) Negative Negative BILIRUBIN UA (BEAKER) (test uqxj=665) Negative Negative BLOOD UA (BEAKER) (test gerx=454) Negative Negative NITRITE UA (BEAKER) (test jvgb=929) Negative Negative LEUKOCYTE ESTERASE UA (BEAKER) (test vanb=892) Negative Negative UROBILINOGEN UA (BEAKER) (test jnjp=464) 0.2 mg/dL 0.2-1.0 RBC UA (BEAKER) (test cjue=973) < /HPF WBC UA (BEAKER) (test eqgf=471) < /HPF MUCUS (BEAKER) (test geeh=6331) Rare SQUAMOUS EPITHELIAL (BEAKER) (test mydx=687) < /HPF HYALINE CASTS (BEAKER) (test yrxy=039) 4 /LPF SOURCE(BEAKER) (test jplo=9800) RAD, CHEST, 2 [id number] 14:12:00Reason for exam:->surgeryFINAL REPORT Chest, two views HISTORY: Surgery COMPARISON: None. DISCUSSION: Lungs are clear without focal consolidation. Cardiomediastinal silhouette is unremarkable. Tortuosityand ectasia of the thoracic aorta. No acute osseous abnormality. No pleural effusion or pneumothorax. Visualized portions of the upper abdomen are unremarkable. IMPRESSION: No acute cardiopulmonary abnormality. Signed: Gera Hernandez MDReport Verified Date/Time: 04/14/2018 14:12:09 Reading Location: [address] Radiology Reading Room 02:12 PM
== END 2019-07-10 13:30 | disposition home or self-care (01) ==
LOC: ER 09:29 → ERHOLD 13:52 → 4TH 14:47
PROVIDERS: ADMIT Internal Medicine; ATTEND Internal Medicine
DX: R07.9 Chest pain, unspecified (principal); E78.5 Hyperlipidemia, unspecified; I10 Essential (primary) hypertension; I73.9 Peripheral vascular disease, unspecified; E11.9 Type 2 diabetes mellitus without complications; Z86.73 Personal history of transient ischemic attack (TIA), and cerebral infarction without residual deficits; Z88.2 Allergy status to sulfonamides; Z87.891 Personal history of nicotine dependence
CPT/HCPCS: 93005 ×2; 93017; 85025 ×2; 80048 ×3; 36415 ×2; 83735; 82550 ×3; 85610; 80061; 80076; 83036; 84484 ×5; 82553 ×3; 82728; 83540; 80053; 83880; 84466; 71275; 74175; 71045; 97116; 97161; 97530; 94760 ×4; 78452; 96374; 99285; Q9967; J0360; J1650 ×2; J2785; A9500; G0378 ×4; 81003; 81015

== ENCOUNTER 2019-09-07 23:50 | Emergency (ER) | payer OTHER ==
--- OUTSIDE RECORDS SUMMARY | 2019-09-08 | XMS REPORT ---
:1940 [facility] Address [address] [place] [address] Care Team Providers Name Role Phone DOMINIC [...] ID: VIEW, NON DEPT EVARShould this be [phone] Chest one view performed at the INDICATION: [...] MDReport Verified Date/Time: 04/19/2018 10:16:05 Reading Location: [facility] Radiology Reading Room PHORUS 2018-04-19 05:21:00 Test Item Value Reference Range Comments PHOSPHORUS (BEAKER) (test iwrt=277) 4.0 mg/dL 2.3-4.7 [id number] 05:21:00 Test Item Value Reference Range Comments MAGNESIUM (BEAKER) (test rfpt=607) 2.2 mg/dL 1.6-2.6 BASIC METABOLIC [id number] 05:21:00 Test Item Value Reference Range Comments SODIUM (BEAKER) (test 141 meq/L 136-145 cvvl=903) POTASSIUM (BEAKER) (test 3.6 meq/L 3.5-5.1 jygl=043) CHLORIDE (BEAKER) (test 106 meq/L 98-107 pakl=419) CO2 (BEAKER) (test 28 meq/L 22-29 magp=779) BLOOD UREA NITROGEN 20 mg/dL 7-21 (BEAKER) (test nzzq=579) CREATININE (BEAKER) (test 0.87 mg/dL 0.57-1.25 veuv=618) GLUCOSE RANDOM (BEAKER) 122 mg/dL 70-105 (test kxka=277) CALCIUM (BEAKER) (test 9.0 mg/dL 8.4-10.2 wriy=100) EGFR (BEAKER) (test 63 mL/min/1.73 sq m ESTIMATED GFR IS NOT qdwx=8414) ACCURATE CREATININE CLEARANCE IN PREDICTING GLOMERULAR FILTRATION RATE. ESTIMATED GFR IS NOT APPLICABLE FOR DIALYSIS PATIENTS. [id number] 04:58:00 Test Item Value Reference Range Comments PARTIAL THROMBOPLASTIN TIME (BEAKER) (test 36.6 seconds 22.5-36.0 nslt=014) PROTHROMBIN TIME/[id number] 04:57:00 Test Item Value Reference Range Comments PROTIME (BEAKER) (test tcnf=205) 15.9 seconds 11.7-14.7 INR (BEAKER) (test ldwg=054) 1.3 <=5.9 RECOMMENDED COUMADIN/WARFARIN INR THERAPY RANGESSTANDARD DOSE: 2.0 - 3.0 Includes: PROPHYLAXIS forvenous thrombosis, systemic embolization; TREATMENT for venous thrombosis and/or pulmonary embolus.HIGH RISK: Target INR is 2.5-3.5 for patients with mechanical heart valves.CBC (HEMOGRAM ONLY)2018-04-19 04:47:00 Test Item Value Reference Range Comments WHITE BLOOD CELL COUNT (BEAKER) (test nfal=587) 9.5 K/ L 3.5-10.5 RED BLOOD CELL COUNT (BEAKER) (test azts=804) 3.64 M/ L 3.93-5.22 HEMOGLOBIN (BEAKER) (test ayxb=762) 10.6 GM/DL 11.2-15.7 HEMATOCRIT (BEAKER) (test ucmh=066) 33.8 % 34.1-44.9 MEAN CORPUSCULAR VOLUME (BEAKER) (test ffiq=308) 92.9 fL 79.4-94.8 MEAN CORPUSCULAR HEMOGLOBIN (BEAKER) (test 29.1 pg 25.6-32.2 mcbg=978) MEAN CORPUSCULAR HEMOGLOBIN CONC (BEAKER) (test 31.4 GM/DL 32.2-35.5 msic=528) RED CELL DISTRIBUTION WIDTH (BEAKER) (test 14.1 % 11.7-14.4 oluf=429) PLATELET COUNT (BEAKER) (test rpbt=956) 232 K/CU MM 150-450 MEAN PLATELET VOLUME (BEAKER) (test kyzb=435) 10.9 fL 9.4-12.3 NUCLEATED RED BLOOD CELLS (BEAKER) (test 0 /100 WBC 0-0 qcze=016) RAD, CHEST, 1 VIEW, NON [id number] 08:00:00Reason for exam:->S/P EVARShould this be performed [...] MDReport Verified Date/Time: 04/18/2018 08:00:53 Reading Location: [facility] Radiology Reading Room [id number] 05:25:00 Test Item Value Reference Range Comments PHOSPHORUS (BEAKER) (test bbfx=120) 3.6 mg/dL 2.3-4.7 [id number] 05:25:00 Test Item Value Reference Range Comments MAGNESIUM (BEAKER) (test wshj=591) 2.2 mg/dL 1.6-2.6 BASIC METABOLIC [id number] 05:25:00 Test Item Value Reference Range Comments SODIUM (BEAKER) (test 139 meq/L 136-145 anlw=248) POTASSIUM (BEAKER) (test 3.2 meq/L 3.5-5.1 cnbb=517) CHLORIDE (BEAKER) (test 103 meq/L 98-107 rmsx=032) CO2 (BEAKER) (test 25 meq/L 22-29 dtia=663) BLOOD UREA NITROGEN 17 mg/dL 7-21 (BEAKER) (test wqph=038) CREATININE (BEAKER) (test 0.86 mg/dL 0.57-1.25 lfxq=035) GLUCOSE RANDOM (BEAKER) 150 mg/dL 70-105 (test dkym=099) CALCIUM (BEAKER) (test 9.6 mg/dL 8.4-10.2 kapb=412) EGFR (BEAKER) (test 64 mL/min/1.73 sq m ESTIMATED GFR IS NOT ygod=1855) ACCURATE CREATININE CLEARANCE IN PREDICTING GLOMERULAR FILTRATION RATE. ESTIMATED GFR IS NOT APPLICABLE FOR DIALYSIS PATIENTS. [id number] 05:06:00 Test Item Value Reference Range Comments PARTIAL THROMBOPLASTIN TIME (BEAKER) (test 36.5 seconds 22.5-36.0 kcao=073) PROTHROMBIN TIME/[id number] 05:05:00 Test Item Value Reference Range Comments PROTIME (BEAKER) (test ccks=759) 16.5 seconds 11.7-14.7 INR (BEAKER) (test gxpb=497) 1.3 <=5.9 RECOMMENDED COUMADIN/WARFARIN INR THERAPY RANGESSTANDARD DOSE: 2.0 - 3.0 Includes: PROPHYLAXIS forvenous thrombosis, systemic embolization; TREATMENT for venous thrombosis and/or pulmonary embolus.HIGH RISK: Target INR is 2.5-3.5 for patients with mechanical heart valves.CBC (HEMOGRAM ONLY)2018-04-18 04:52:00 Test Item Value Reference Range Comments WHITE BLOOD CELL COUNT (BEAKER) (test pwzd=271) 11.2 K/ L 3.5-10.5 RED BLOOD CELL COUNT (BEAKER) (test zomy=063) 3.90 M/ L 3.93-5.22 HEMOGLOBIN (BEAKER) (test bhrr=474) 11.3 GM/DL 11.2-15.7 HEMATOCRIT (BEAKER) (test xqdp=768) 35.7 % 34.1-44.9 MEAN CORPUSCULAR VOLUME (BEAKER) (test xbpw=777) 91.5 fL 79.4-94.8 MEAN CORPUSCULAR HEMOGLOBIN (BEAKER) (test 29.0 pg 25.6-32.2 swcd=325) MEAN CORPUSCULAR HEMOGLOBIN CONC (BEAKER) (test 31.7 GM/DL 32.2-35.5 bwxx=019) RED CELL DISTRIBUTION WIDTH (BEAKER) (test 14.2 % 11.7-14.4 wrme=611) PLATELET COUNT (BEAKER) (test kgsn=692) 208 K/CU MM 150-450 MEAN PLATELET VOLUME (BEAKER) (test emfm=746) 10.6 fL 9.4-12.3 NUCLEATED RED BLOOD CELLS (BEAKER) (test 0 /100 WBC 0-0 wwsa=516) RAD, CHEST, 1 VIEW, NON [id number] 10:31:00Reason for exam:->S/P EVARShould this be performed at the bedside?->YesFINAL REPORT Chest, one view. HISTORY: Status post aortic repair COMPARISON: 2017 IMPRESSION: No significant change. Unchanged tortuosity and ectasia of the thoracic aorta.Mild interstitial edema. No large pleural effusion or pneumothorax. Signed: Gera Hernandez Verified Date/Time: 04/17/2018 10: 31:41 Reading Location: [facility] C013Y CT Body Reading Room [id number] 06: 43:00 Test Item Value Reference Range Comments PHOSPHORUS (BEAKER) (test rtay=163) 3.3 mg/dL 2.3-4.7 [id number] 06:43:00 Test Item Value Reference Range Comments MAGNESIUM (BEAKER) (test repd=538) 2.0 mg/dL 1.6-2.6 [id number] 06:23:00 Test Item Value Reference Range Comments PARTIAL THROMBOPLASTIN TIME (BEAKER) (test 36.4 seconds 22.5-36.0 mpmz=734) PROTHROMBIN TIME/[id number] 06:22:00 Test Item Value Reference Range Comments PROTIME (BEAKER) (test julv=473) 17.3 seconds 11.7-14.7 INR (BEAKER) (test oblk=065) 1.4 <=5.9 RECOMMENDED COUMADIN/WARFARIN INR THERAPY RANGESSTANDARD DOSE: 2.0 - 3.0 Includes: PROPHYLAXIS forvenous thrombosis, systemic embolization; TREATMENT for venous thrombosis and/or pulmonary embolus.HIGH RISK: Target INR is 2.5-3.5 for patients with mechanical heart valves.CBC (HEMOGRAM ONLY)2018-04-17 06:13:00 Test Item Value Reference Range Comments WHITE BLOOD CELL COUNT (BEAKER) (test cmlp=242) 13.2 K/ L 3.5-10.5 RED BLOOD CELL COUNT (BEAKER) (test tawr=746) 3.84 M/ L 3.93-5.22 HEMOGLOBIN (BEAKER) (test vnkc=689) 11.5 GM/DL 11.2-15.7 HEMATOCRIT (BEAKER) (test plbi=015) 34.9 % 34.1-44.9 MEAN CORPUSCULAR VOLUME (BEAKER) (test jzvo=636) 90.9 fL 79.4-94.8 MEAN CORPUSCULAR HEMOGLOBIN (BEAKER) (test 29.9 pg 25.6-32.2 nzgp=363) MEAN CORPUSCULAR HEMOGLOBIN CONC (BEAKER) (test 33.0 GM/DL 32.2-35.5 hqew=403) RED CELL DISTRIBUTION WIDTH (BEAKER) (test 14.0 % 11.7-14.4 wwdv=788) PLATELET COUNT (BEAKER) (test wqhl=677) 201 K/CU MM 150-450 MEAN PLATELET VOLUME (BEAKER) (test dgic=439) 10.6 fL 9.4-12.3 NUCLEATED RED BLOOD CELLS (BEAKER) (test 0 /100 WBC 0-0 vewm=112) RAD, CHEST, 1 VIEW, NON [id number] 09:02:00Reason for exam:->S/P EVARShould this be performed [...] Hernandezeport Verified Date/Time: 04/16/2018 09:02:11 Reading Location: [facility] B1 C013Y CT Body Reading Room [id number] 06:11:00 Test Item Value Reference Range Comments PHOSPHORUS (BEAKER) (test aeej=079) 1.9 mg/dL 2.3-4.7 [id number] 06:11:00 Test Item Value Reference Range Comments MAGNESIUM (BEAKER) (test lolt=565) 2.0 mg/dL 1.6-2.6 BASIC METABOLIC [id number] 06:11:00 Test Item Value Reference Range Comments SODIUM (BEAKER) (test 137 meq/L 136-145 dfgn=197) POTASSIUM (BEAKER) (test 3.2 meq/L 3.5-5.1 bmdl=811) CHLORIDE (BEAKER) (test 104 meq/L 98-107 rwpf=065) CO2 (BEAKER) (test 24 meq/L 22-29 rqko=232) BLOOD UREA NITROGEN 7 mg/dL 7-21 (BEAKER) (test dwth=082) CREATININE (BEAKER) (test 0.86 mg/dL 0.57-1.25 iyse=954) GLUCOSE RANDOM (BEAKER) 179 mg/dL 70-105 (test maiz=814) CALCIUM (BEAKER) (test 9.0 mg/dL 8.4-10.2 mcth=357) EGFR (BEAKER) (test 64 mL/min/1.73 sq m ESTIMATED GFR IS NOT asdo=3847) ACCURATE CREATININE CLEARANCE IN PREDICTING GLOMERULAR FILTRATION RATE. ESTIMATED GFR IS NOT APPLICABLE FOR DIALYSIS PATIENTS. [id number] 05:46:00 Test Item Value Reference Range Comments PARTIAL THROMBOPLASTIN TIME (BEAKER) (test 32.0 seconds 22.5-36.0 axjq=055) PROTHROMBIN [id number] 05:45:00 Test Item Value Reference Range Comments PROTIME (BEAKER) (test wojr=766) 15.0 seconds 11.7-14.7 INR (BEAKER) (test mbri=255) 1.2 <=5.9 RECOMMENDED COUMADIN/WARFARIN INR THERAPY RANGESSTANDARD DOSE: 2.0 - 3.0 Includes: PROPHYLAXIS forvenous thrombosis, systemic embolization; TREATMENT for venous thrombosis and/or pulmonary embolus.HIGH RISK: Target INR is 2.5-3.5 for patients with mechanical heart valves.CBC (HEMOGRAM ONLY)2018-04-16 05:31:00 Test Item Value Reference Range Comments WHITE BLOOD CELL COUNT (BEAKER) (test utad=461) 12.0 K/ L 3.5-10.5 RED BLOOD CELL COUNT (BEAKER) (test kshb=944) 4.19 M/ L 3.93-5.22 HEMOGLOBIN (BEAKER) (test tmqg=307) 12.4 GM/DL 11.2-15.7 HEMATOCRIT (BEAKER) (test tmbg=087) 38.6 % 34.1-44.9 MEAN CORPUSCULAR VOLUME (BEAKER) (test uyoj=648) 92.1 fL 79.4-94.8 MEAN CORPUSCULAR HEMOGLOBIN (BEAKER) (test 29.6 pg 25.6-32.2 iurj=718) MEAN CORPUSCULAR HEMOGLOBIN CONC (BEAKER) (test 32.1 GM/DL 32.2-35.5 jjfs=042) RED CELL DISTRIBUTION WIDTH (BEAKER) (test 14.0 % 11.7-14.4 dwjw=163) PLATELET COUNT (BEAKER) (test kdam=025) 223 K/CU MM 150-450 MEAN PLATELET VOLUME (BEAKER) (test eqia=915) 10.3 fL 9.4-12.3 NUCLEATED RED BLOOD CELLS (BEAKER) (test 0 /100 WBC 0-0 glbj=940) [id number] 13:56:00 Test Item Value Reference Range Comments ACTIVATED CLOTTING TIME [address] [facility] [address] (BEAKER) (test tczx=261) [place] [address] RAD, ABDOMEN/KUB, 1 VIEW [id number] 12:39:00Reason for exam:->Postop AAAFINAL REPORT CLINICAL HISTORY: [...] GodwinMDReport Verified Date/Time: 2017 12:39:57 Reading Location: [facility] Radiology Reading Room RAD, CHEST , 1 VIEW, NON [id number] 12:38:00For chest painReason for exam:->post opShould this be performed at the bedside?->YesFINAL REPORT CLINICAL HISTORY: post op TECHNIQUE: 1 view of the chest. COMPARISON: 04/10/2018 IMPRESSION: There are no focal infiltrates or effusions. Cardiomegaly is again seen with tortuosity of the thoracic aorta. Signed: Hardik Godwin MDReport Verified Date/Time: 04/15/201812:38:40 Reading Location: [facility] Radiology Reading Room [id number] 11:51:00 Test Item Value Reference Range Comments PHOSPHORUS (BEAKER) (test xwgu=873) 3.2 mg/dL 2.3-4.7 BASIC METABOLIC [id number] 11:51:00 Test Item Value Reference Range Comments SODIUM (BEAKER) (test 140 meq/L 136-145 oobp=391) POTASSIUM (BEAKER) (test 3.8 meq/L 3.5-5.1 wtnr=814) CHLORIDE (BEAKER) (test 109 meq/L 98-107 opkh=154) CO2 (BEAKER) (test 24 meq/L 22-29 yuqg=033) BLOOD UREA NITROGEN 12 mg/dL 7-21 (BEAKER) (test vhtc=776) CREATININE (BEAKER) (test 0.77 mg/dL 0.57-1.25 lrmk=688) GLUCOSE RANDOM (BEAKER) 176 mg/dL 70-105 (test dxla=133) CALCIUM (BEAKER) (test 9.7 mg/dL 8.4-10.2 kwsi=318) EGFR (BEAKER) (test 73 mL/min/1.73 sq m ESTIMATED GFR IS NOT haxz=5267) ACCURATE CREATININE CLEARANCE IN PREDICTING GLOMERULAR FILTRATION RATE. ESTIMATED GFR IS NOT APPLICABLE FOR DIALYSIS PATIENTS. CBC W/PLT COUNT & AUTO [id number] 11:23:00 Test Item Value Reference Range Comments WHITE BLOOD CELL COUNT (BEAKER) (test pdrn=441) 12.0 K/ L 3.5-10.5 RED BLOOD CELL COUNT (BEAKER) (test ykkb=905) 3.84 M/ L 3.93-5.22 HEMOGLOBIN (BEAKER) (test bryj=620) 11.4 GM/DL 11.2-15.7 HEMATOCRIT (BEAKER) (test qrst=050) 35.7 % 34.1-44.9 MEAN CORPUSCULAR VOLUME (BEAKER) (test jrzh=176) 93.0 fL 79.4-94.8 MEAN CORPUSCULAR HEMOGLOBIN (BEAKER) (test 29.7 pg 25.6-32.2 txsz=733) MEAN CORPUSCULAR HEMOGLOBIN CONC (BEAKER) (test 31.9 GM/DL 32.2-35.5 kgab=998) RED CELL DISTRIBUTION WIDTH (BEAKER) (test 14.1 % 11.7-14.4 qenu=630) PLATELET COUNT (BEAKER) (test tlob=731) 207 K/CU MM 150-450 MEAN PLATELET VOLUME (BEAKER) (test jxur=241) 10.7 fL 9.4-12.3 NUCLEATED RED BLOOD CELLS (BEAKER) (test 0 /100 WBC 0-0 lrsr=260) NEUTROPHILS RELATIVE PERCENT (BEAKER) (test 77 % synm=331) LYMPHOCYTES RELATIVE PERCENT (BEAKER) (test 15 % qmbw=396) MONOCYTES RELATIVE PERCENT (BEAKER) (test 6 % fyav=760) EOSINOPHILS RELATIVE PERCENT (BEAKER) (test 1 % yzvx=180) BASOPHILS RELATIVE PERCENT (BEAKER) (test 1 % kgir=334) NEUTROPHILS ABSOLUTE COUNT (BEAKER) (test 9.14 K/ L 1.56-6.13 thlb=562) LYMPHOCYTES ABSOLUTE COUNT (BEAKER) (test 1.78 K/ L 1.18-3.74 tkne=933) MONOCYTES ABSOLUTE COUNT (BEAKER) (test 0.72 K/ L 0.24-0.36 hbdw=067) EOSINOPHILS ABSOLUTE COUNT (BEAKER) (test 0.16 K/ L 0.04-0.36 vzty=818) BASOPHILS ABSOLUTE COUNT (BEAKER) (test 0.06 K/ L 0.01-0.08 nbhj=694) IMMATURE GRANULOCYTES-RELATIVE PERCENT (BEAKER) 1 % 0-1 (test opeh=7610) PROTHROMBIN [id number] 11:22:00 Test Item Value Reference Range Comments PROTIME (BEAKER) (test hmzj=050) 15.7 seconds 11.7-14.7 INR (BEAKER) (test mntr=819) 1.3 <=5.9 RECOMMENDED COUMADIN/WARFARIN INR THERAPY RANGESSTANDARD DOSE: 2.0 - 3.0 Includes: PROPHYLAXIS forvenous thrombosis, systemic embolization; TREATMENT for venous thrombosis and/or pulmonary embolus.HIGH RISK: Target INR is 2.5-3.5 for patients with mechanical heart valves.CALCIUM, [id number] 11:06:00 Test Item Value Reference Range Comments CALCIUM IONIZED (BEAKER) (test uvwc=260) 1.25 mmol/L 1.12-1.27 PH, BLOOD (BEAKER) (test nxvv=2163) 7.37 HEPATITIS C [id number] 15:18:00 Test Item Value Reference Range Comments HEPATITIS C ANTIBODY (BEAKER) (test xfif=977) Nonreactive Nonreactive HEPATITIS B [id number] 15:18:00 Test Item Value Reference Range Comments HEPATITIS B CORE TOTAL ANTIBODY (BEAKER) (test Nonreactive Nonreactive zohb=930) HEPATITIS B SURFACE ANTIBODY (BEAKER) (test 63.1 mIU/mL <8.0 budm=548) HEPATITIS B SURFACE ANTIGEN (2) (BEAKER) (test Nonreactive Nonreactive mhbp=2763) HIV-1 ANTIGEN WITH HIV-1/2 [id number] 15:18:00 Test Item Value Reference Range Comments HIV-1 ANTIGEN WITH HIV 1\T\2 ANTIBODY (2) Nonreactive Nonreactive (BEAKER) (test xvaq=5640) [id number] 15:08:00 Test Item Value Reference Range Comments LIPASE (BEAKER) (test btjy=219) 10 U/L 8-78 [id number] 15:08:00 Test Item Value Reference Range Comments AMYLASE (BEAKER) (test gkww=160) 40 U/L 25-125 BASIC METABOLIC [id number] 15:08:00 Test Item Value Reference Range Comments SODIUM (BEAKER) (test 141 meq/L 136-145 cyop=851) POTASSIUM (BEAKER) (test 3.6 meq/L 3.5-5.1 hulh=950) CHLORIDE (BEAKER) (test 104 meq/L 98-107 wfow=659) CO2 (BEAKER) (test 27 meq/L 22-29 nyfv=125) BLOOD UREA NITROGEN 12 mg/dL 7-21 (BEAKER) (test zjto=013) CREATININE (BEAKER) (test 0.86 mg/dL 0.57-1.25 rhdl=067) GLUCOSE RANDOM (BEAKER) 112 mg/dL 70-105 (test zben=844) CALCIUM (BEAKER) (test 9.8 mg/dL 8.4-10.2 etka=947) EGFR (BEAKER) (test 64 mL/min/1.73 sq m ESTIMATED GFR IS NOT nzvi=7105) ACCURATE CREATININE CLEARANCE IN PREDICTING GLOMERULAR FILTRATION RATE. ESTIMATED GFR IS NOT APPLICABLE FOR DIALYSIS PATIENTS. HEPATIC FUNCTION [id number] 15:08:00 Test Item Value Reference Range Comments TOTAL PROTEIN (BEAKER) (test trdp=607) 7.1 gm/dL 6.0-8.3 ALBUMIN (BEAKER) (test jeuo=0441) 4.0 g/dL 3.5-5.0 BILIRUBIN TOTAL (BEAKER) (test wqni=664) 0.4 mg/dL 0.2-1.2 BILIRUBIN DIRECT (BEAKER) (test dscz=005) 0.2 mg/dL 0.1-0.5 ALKALINE PHOSPHATASE (BEAKER) (test eade=764) 135 U/L 40-150 AST (SGOT) (BEAKER) (test wvhn=038) 22 U/L 5-34 ALT (SGPT) (BEAKER) (test ftpl=554) 22 U/L 6-55 LACTATE DEHYDROGENASE (LDH)2018-04-14 15:08:00 Test Item Value Reference Range Comments LACTATE DEHYDROGENASE (BEAKER) (test wcuk=838) 238 U/L 125-220 [id number] 14:47:00 Test Item Value Reference Range Comments PARTIAL THROMBOPLASTIN TIME (BEAKER) (test 31.9 seconds 22.5-36.0 jmtm=181) PROTHROMBIN TIME/[id number] 14:46:00 Test Item Value Reference Range Comments PROTIME (BEAKER) (test mhbs=173) 14.1 seconds 11.7-14.7 INR (BEAKER) (test kobf=400) 1.1 <=5.9 RECOMMENDED COUMADIN/WARFARIN INR THERAPY RANGESSTANDARD DOSE: 2.0 - 3.0 Includes: PROPHYLAXIS forvenous thrombosis, systemic embolization; TREATMENT for venous thrombosis and/or pulmonary embolus.HIGH RISK: Target INR is 2.5-3.5 for patients with mechanical heart valves.RETICULOCYTE [id number] 14:36:00 Test Item Value Reference Range Comments RETICULOCYTE COUNT PCT (BEAKER) (test wwuy=004) 1.0 % 0.5-1.7 CBC W/PLT COUNT & AUTO [id number] 14:36:00 Test Item Value Reference Range Comments WHITE BLOOD CELL COUNT (BEAKER) (test oczx=057) 9.3 K/ L 3.5-10.5 RED BLOOD CELL COUNT (BEAKER) (test tpxy=503) 4.05 M/ L 3.93-5.22 HEMOGLOBIN (BEAKER) (test luff=219) 12.2 GM/DL 11.2-15.7 HEMATOCRIT (BEAKER) (test mlzh=174) 37.2 % 34.1-44.9 MEAN CORPUSCULAR VOLUME (BEAKER) (test ghso=247) 91.9 fL 79.4-94.8 MEAN CORPUSCULAR HEMOGLOBIN (BEAKER) (test 30.1 pg 25.6-32.2 hvaq=026) MEAN CORPUSCULAR HEMOGLOBIN CONC (BEAKER) (test 32.8 GM/DL 32.2-35.5 rlts=774) RED CELL DISTRIBUTION WIDTH (BEAKER) (test 14.2 % 11.7-14.4 onbn=835) PLATELET COUNT (BEAKER) (test zzoj=686) 259 K/CU MM 150-450 MEAN PLATELET VOLUME (BEAKER) (test hvxz=343) 11.1 fL 9.4-12.3 NUCLEATED RED BLOOD CELLS (BEAKER) (test 0 /100 WBC 0-0 oftr=728) NEUTROPHILS RELATIVE PERCENT (BEAKER) (test 70 % iuds=715) LYMPHOCYTES RELATIVE PERCENT (BEAKER) (test 19 % rbqy=307) MONOCYTES RELATIVE PERCENT (BEAKER) (test 8 % oard=461) EOSINOPHILS RELATIVE PERCENT (BEAKER) (test 2 % qyqi=525) BASOPHILS RELATIVE PERCENT (BEAKER) (test 1 % djnv=865) NEUTROPHILS ABSOLUTE COUNT (BEAKER) (test 6.49 K/ L 1.56-6.13 wbtn=824) LYMPHOCYTES ABSOLUTE COUNT (BEAKER) (test 1.74 K/ L 1.18-3.74 llvh=364) MONOCYTES ABSOLUTE COUNT (BEAKER) (test 0.78 K/ L 0.24-0.36 zjjt=470) EOSINOPHILS ABSOLUTE COUNT (BEAKER) (test 0.14 K/ L 0.04-0.36 lhiq=261) BASOPHILS ABSOLUTE COUNT (BEAKER) (test 0.07 K/ L 0.01-0.08 jhzv=887) IMMATURE GRANULOCYTES-RELATIVE PERCENT (BEAKER) 0 % 0-1 (test tmbf=0834) URINALYSIS W/ [id number] 14:25:00 Test Item Value Reference Range Comments COLOR (BEAKER) (test obmq=818) Yellow CLARITY (BEAKER) (test qezv=256) Clear SPECIFIC GRAVITY UA (BEAKER) (test uaxo=459) 1.010 1.001-1.035 PH UA (BEAKER) (test bdrh=334) 6.5 5.0-8.0 PROTEIN UA (BEAKER) (test dsms=712) 20 mg/dL Negative GLUCOSE UA (BEAKER) (test ussh=454) Negative Negative KETONES UA (BEAKER) (test xhai=933) Negative Negative BILIRUBIN UA (BEAKER) (test uwkk=891) Negative Negative BLOOD UA (BEAKER) (test bstg=241) Negative Negative NITRITE UA (BEAKER) (test ndxg=680) Negative Negative LEUKOCYTE ESTERASE UA (BEAKER) (test hqzf=734) Negative Negative UROBILINOGEN UA (BEAKER) (test ejhk=182) 0.2 mg/dL 0.2-1.0 RBC UA (BEAKER) (test veoi=973) < /HPF WBC UA (BEAKER) (test shvn=086) < /HPF MUCUS (BEAKER) (test eytv=2090) Rare SQUAMOUS EPITHELIAL (BEAKER) (test umdi=668) < /HPF HYALINE CASTS (BEAKER) (test odrf=595) 4 /LPF SOURCE(BEAKER) (test wthd=9777) RAD, CHEST, 2 [id number] 14:12:00Reason for exam:->surgeryFINAL REPORT Chest, two views HISTORY: Surgery COMPARISON: None. DISCUSSION: Lungs are clear without focal consolidation. Cardiomediastinal silhouette is unremarkable. Tortuosityand ectasia of the thoracic aorta. No acute osseous abnormality. No pleural effusion or pneumothorax. Visualized portions of the upper abdomen are unremarkable. IMPRESSION: No acute cardiopulmonary abnormality. Signed: Gera Hernandez MDReport Verified Date/Time: 04/14/2018 14:12:09 Reading Location: [address] Radiology Reading Room 02:12 PM
[2019-09-08 00:07] LABS: Absolute Lymphocytes (CBC) 2.9 K/uL (0.7-4.9); Basophils % 1.1 % (0-1.3); Hematocrit 34.2 % (36.0-45.0); Lymphocytes % 30.1 % (15.3-44.8); MPV 7.6 fL (7.6-11.3); RBC Red Blood Cell Count 4.48 M/uL (3.86-4.86)
[2019-09-08 00:08] LABS: Protime INR 0.99
[2019-09-08 00:16] LABS: Albumin 3.3 g/dL (3.4-5.0); BUN Blood Urea Nitrogen 15 mg/dL (7-18); Bicarbonate 29 mmol/L (21-32); Glucose Level 180 mg/dL (74-106); Potassium 3.7 mmol/L (3.5-5.1); Sodium Level 140 mmol/L (136-145)
[2019-09-08 00:22] LABS: ALT/SGPT 28 U/L (12-78); AST/SGOT 24 U/L (15-37); Alkaline Phosphatase 159 U/L (45-117); Bilirubin Direct < 0.1 mg/dL (0-0.2); Bilirubin Total 0.3 mg/dL (0.2-1.0); Protein, Total 7.4 g/dL (6.4-8.2); Troponin (Emerg Dept Use Only) < 0.02 ng/mL (0.0-0.045)
[2019-09-08 00:40] LABS: Anisocytosis 1+; Blood Morphology Comment NOTED (NOT SEEN); Platelet Estimate ADEQ; Urine White Blood Cell Casts OK
[2019-09-08 00:41] LABS: Poikilocytosis SLIGHT
--- NOTE | 2019-09-08 00:56 | ER ---
Nurse's Notes [facility] Name: Syl Sheikh Age: 79 yrs Sex: Female : 1940 Arrival Date: 09/07/2019 Time: 23:54 Bed 4 Private MD: Diagnosis: Dysphasia following nontraumatic intracerebral hemorrhage;Hypertensive emergency Presentation: 09/07 23:56 Presenting complaint: EMS states: Called for patient who woke up at 2300 with tingling lp1 to face, lips, L arm weakness, L foot tingling; headache to back of head; States going to sleep about 2200 at baseline; Hx of hemorrhagic CVA 7 years ago. 09/08 00:01 Transition of care: patient was not received from another setting of care. An acute lp1 neurological deficit is present. The patients blood glucose was checked before arriving to the hospital and was found to be normal. Onset of symptoms was September 07, 2019 at 23:00. Risk Assessment: Do you want to hurt yourself or someone else? Patient reports no desire to harm self or others. Initial Sepsis Screen: Does the patient meet any 2 criteria? No. Patient's initial sepsis screen is negative. Does the patient have a suspected source of infection? No. Patient's initial sepsis screen is negative. Care prior to arrival: IV initiated. 20 GA, in the right antecubital area, Glucose check: 181. 00:01 Method Of Arrival: EMS: [facility] lp1 00:01 Acuity: MP 1 lp1 00:01 Note Per EMS, patient hypertensive at 220/130. lp1 Triage Assessment: 09/07 23:56 The onset of the patients symptoms was September 07, 2019 at 23:56. rr5 Stroke Activation: Symptom onset < 3 hours Physician: Stroke Attending; Name: dr. haile; Notified At: 23:56; Arrived At: 23:56 Physician: Chief Stroke Resident; Name: ; Notified At: 23:56; Arrived At: Physician: Stroke Resident; Name: ; Notified At: 23:56; Arrived At: Physician: ED Attending; Name: ; Notified At: 23:56; Arrived At: 23:56 Physician: ED Resident; Name: ; Notified At: 23:56; Arrived At: Historical: - Allergies: 09/08 00:07 butorphanol tartrate; lp1 00:07 Codeine; lp1 00:07 Hydrocodone-Acetaminophen; lp1 00:07 Lisinopril; lp1 00:07 Stadol; lp1 00:07 statin drugs; lp1 - Home Meds: 00:07 pentoxifylline 400 mg oral TbER 1 tab 2 times per day [Active]; paroxetine HCl 10 mg lp1 oral tab 1 tab once daily [Active]; alprazolam 0.5 mg oral Tb24 1 tab once daily [Active]; pantoprazole 40 mg oral TbEC 1 tab once daily [Active]; amlodipine 2.5 mg tab 1 tab once daily [Active]; metoprolol succinate 25 mg oral Tb24 1 tab once daily [Active]; clonidine HCl 0.1 mg Oral tab 1 tab every 8 hours [Active]; - PMHx: 00:07 abdominal aortic aneurysm; CVA; Diabetes - NIDDM; GERD; Hypertension; TIA; lp1 - Immunization history:: Adult Immunizations up to date. - Ebola Screening: : No symptoms or risks identified at this time. - Social history:: Smoking status: Patient/guardian denies using tobacco. Screenin:09 Abuse screen: Denies threats or abuse. Denies injuries from another. Nutritional lp1 screening: No deficits noted. Tuberculosis screening: No symptoms or risk factors identified. Fall Risk Total Patel Fall Scale indicates High Risk Score (45 or more points). Fall prevention measures have been instituted. Side Rails Up X 2 Family Present and informed to notify staff if the need to leave the bedside As available patient and family educated on Fall Prevention Program and Strategies. 00:15 Patient has been NPO before screening. The patient is alert, able to follow commands. lp1 The patient does not exhibit slurred or garbled speech The patient is not exhibiting difficulty speaking. The patient does not exhibit difficulty understanding words. The patient is able to swallow own secretions with no drooling or need for suction. The patient did not tolerate one teaspoon of water. Drooling, immediate coughing, gurgling, or clearing of the throat was noted. Bedside swallow screening discontinued. Patient kept NPO until cleared by Speech Therapy or Physician. Assessment: 09/07 23:55 VAN Scoring: Arm Drift: Patients demonstrates NO arm weakness. Patient is VAN Negative. lp1 Visual Disturbance: No visual disturbance noted. Aphasia: Expressive aphasia noted. Provider notified of +VAN scoring. 09/08 00:02 Reassessment: Patient returned from CT. lp1 00:05 General: Appears in no apparent distress. uncomfortable, Behavior is calm, cooperative. rr5 00:05 Pain: Complains of pain in back of the head Pain does not radiate. Pain Quality of pain rr5 is described as aching, Pain began suddenly, Is intermittent. Neuro: Level of Consciousness is awake, alert, obeys commands, Oriented to person, place, time, situation, Still Worker Helper are weak on left Moves all extremities. Full function Pupils are PERRLA, Reports headache occipital area, numbness in face and left side of the body weakness in left side of the body. Cardiovascular: Capillary refill < 3 seconds Patient's skin is warm and dry. Respiratory: Airway is patent Respiratory effort is even, unlabored, Respiratory pattern is regular, symmetrical. GI: No signs and/or symptoms were reported involving the gastrointestinal system. : No signs and/or symptoms were reported regarding the genitourinary system. EENT: Derm: Skin is intact, is healthy with good turgor, Skin temperature is warm. Musculoskeletal: Capillary refill < 3 seconds, Reports weakness in left arm and left leg numbness in face,left arm and left leg. 00:15 Patient has been NPO before screening. The patient is alert, and able to follow lp1 commands. The patient does not exhibit slurred or garbled speech. The patient is not exhibiting difficulty speaking. The patient does not exhibit difficulty understanding words. The patient is able to swallow own secretions with no drooling or need for suction. The patient did not tolerate one teaspoon of water. Drooling, immediate coughing, gurgling, or clearing of the throat was noted. Bedside swallow screening discontinued. Patient kept NPO until cleared by Speech Therapy or Physician. The patient failed the bedside swallow screening. The patient will be kept NPO until cleared by Speech Therapy or Physician. Provider notified of bedside swallow screening results: Negrito Haile MD. 00:15 not performed failed in teaspoon of water. rr5 00:32 T-PA (Activase) Screening: Contraindications: Intracranial hemorrhage and its risk rr5 factor and suspicion of subarachnoid bleed: Yes. 00:39 Reassessment: Dr. Haile at bedside to discuss plan of care with patient and son. lp1 01:20 Reassessment: Shaylee PINEDA formerly [facility] informed and accepted the case. rr5 01:54 Reassessment: Patient appears in no apparent distress at this time. Patient is alert, rr5 oriented x 3, equal unlabored respirations, skin warm/dry/pink. BP 140/81mmHg nicardipine drip discontinue. patient said she is having clonidine 0.2mg patch on her left arm. ED provider aware to keep it on. 02:30 Reassessment: Patient appears in no apparent distress at this time. Patient is alert, rr5 oriented x 3, equal unlabored respirations, skin warm/dry/pink. report given to [facility] awake, alert, conscious and coherent, not in distress, breathing spontaneously at room, no complaints made. vital signs taken and recorded. with IV cannula G20 right AC intact ongoing nicardipine drip at 5mg/hr. with IV cannula G20 left forearm intact. Vital Signs: 00:03 BP 176 / 97; Pulse 74; Resp 18; Temp 97.4(TE); Pulse Ox 100% on R/A; Weight 56.7 kg lp1 (R); Height 5 ft. 7 in. (170.18 cm); Pain 6/10; 00:30 BP 191 / 97; Pulse 82; Resp 18; Pulse Ox 100% on R/A; lp1 00:40 BP 189 / 91; Pulse 80; Resp 20; Pulse Ox 100% on R/A; lp1 01:21 BP 191 / 96; Pulse 83; Resp 20; Pulse Ox 97% on R/A; lp1 01:25 BP 197 / 87; Pulse 74; Resp 15; Pulse Ox 99% ; rr5 01:40 BP 140 / 81; Pulse 90; Resp 16; Pulse Ox 98% ; rr5 02:26 BP 163 / 88; Pulse 82; Resp 18; Pulse Ox 100% ; rr5 00:03 Body Mass Index 19.58 (56.70 kg, 170.18 cm) lp1 01:40 nicardipine drip discontinued. rr5 02:26 nicardipine drip restarted. rr5 NIH Stroke Scale Scores: 00:00 NIHSS Score: 3 lp1 ED Course: 09/07 23:53 Maintain EMS IV. Dressing intact. Good blood return noted. Site clean \T\ dry. Gauge \T\ lp 1 site: 20g to R AC. 23:53 Initial lab(s) drawn, by ED staff, sent to lab. lp1 23:54 Patient arrived in ED. lp1 23:55 Patient has correct armband on for positive identification. Placed in gown. Bed in low lp1 position. customer account manager on. Pulse ox on. NIBP on. 23:57 Negrito Haile MD is Attending Physician. tw4 23:[address] stretcher. lp1 09/08 00:02 Triage completed. lp1 00:02 Arm band placed on. lp1 00:07 EKG done, by ED staff, reviewed by Negrito Haile MD. lp1 00:10 X-ray(s) taken. lp1 00:11 Jason Beckwith RN is Primary Nurse. rr5 00:27 Stroke CXR 1 View In Process Unspecified. EDMS 00:28 Jason Beckwith RN is Primary Nurse. rr5 00:32 CT Stroke Brain w/o Contrast In Process Unspecified. EDMS 00:40 Jason Beckwith RN is Primary Nurse. rr5 01:55 Inserted saline lock: 20 gauge in left forearm, using aseptic technique. rr5 02:30 No provider procedures requiring assistance completed. Patient transferred, IV remains rr5 in place. intact, No redness/swelling at site. Administered Medications: 01:25 Drug: niCARdipine (25mg/250mL) 5 mg/h {Note: BP 197/87.} Route: IV; Rate: Titrate; rr5 Site: right antecubital; 01:40 Follow up: Response: Blood pressure is lowered; IV Status: Order to discontinue rr5 infusion; BP of 140/80 02:26 Follow up: Response: Blood pressure is elevated; IV Status: Infusion continued upon rr5 transfer; BP 163/88 mmHg nicardipine restarted. 01:38 Not Given (Duplicate Order): Cardene 5 mcg/kg/min IV at calculated rate continuous; rr5 5mg/hr Point of Care Testing: Blood Glucose: 09/07 23:56 Blood Glucose: 178 mg/dL; lp1 Ranges: Intake: Outcome: 09/08 00:55 ER care complete, transfer ordered by . tw4 02:30 Transferred by ground EMS to [facility], Transfer form completed. rr5 Note: by [facility] 02:30 Condition: stable 02:30 Instructed on the need for transfer. 02:42 Patient left the ED. rr5 NIH Stroke Scale - NIH Stroke Score Date: 09/08/2019 Time: 00:00 Total Score = 3 1a. Level of Consciousness (LOC) - 0(Alert) 1b. Level of Consciousness (LOC) (Year \T\ Age) - 0(Both) 1c. LOC Commands (Open \T\ Closes Eyes/Management Advisor) - 0(Both) 2. Best Gaze (Lateral Gaze Paresis) - 0(Normal) 3. Visual Field Loss - 0(No visual loss) 4. Facial Palsy - 0(Normal) 5a. Left Arm: Motor (10-second hold) - 0(No drift) 5b. Right Arm: Motor (10-second hold) - 0(No drift) 6a. Left Leg: Motor (5-second hold - always test supine) - 1(Drift) 6b. Right Leg: Motor (5-second hold - always test supine) - 0(No drift) 7. Limb Ataxia (finger/nose \T\ heel/luna - test with eyes open) - 0(Absent) 8. Sensory Loss (pinprick arms/legs/face) - 1(Mild to moderate loss) 9. Best Language: Aphasia (description/naming/reading) - 1(Mild to moderate aphasia) 10. Dysarthria (speech clarity - read or repeat words) - 0(Normal) 11. Extinction and Inattention (visual/tactile/auditory/spatial/personal) - 0(No abnormality) Initials: lp1 Signatures: Dispatcher [employer] EDMS Tonia Finley, RN RN lp1 Negrito Haile MD MD tw4 Jason Beckwith, RN RN rr5 Corrections: (The following items were deleted from the chart) 00:12 00:05 EKG done, by ED staff, reviewed by Negrito Haile MD lp1 lp1 00:40 00:03 BP 176 / 97; Pulse 74bpm; Resp 18bpm; Pulse Ox 100% RA; Temp 97.4F lp1 Temporal; lp1
--- NOTE | 2019-09-08 00:56 | EDPHYS ---
Physician Documentation [facility] Name: Syl Sheikh Age: 79 yrs Sex: Female : 1940 Arrival Date: 09/07/2019 Time: 23:54 Bed 4 Private MD: ED Physician Negrito Phelps HPI: 09/08 01:05 This 79 yrs old Female presents to ER via EMS with complaints of Weakness. tw4 01:05 The patient presents to the emergency department with a speech or higher order brain tw4 function problem, aphasia, that is moderate. Onset: The symptoms/episode began/occurred just prior to arrival, 1 hour(s) ago. Context: occurred at home, occurred while the patient was getting up from bed. Associated signs and symptoms: The patient has no apparent associated signs or symptoms. Severity of symptoms: At their worst the symptoms were moderate in the emergency department the symptoms have improved. Patient's baseline: Neuro: alert and fully oriented, Motor: no deficits, Ambulation:. The patient has not experienced similar symptoms in the past. Historical: - Allergies: 00:07 butorphanol tartrate; lp1 00:07 Codeine; lp1 00:07 Hydrocodone-Acetaminophen; lp1 00:07 Lisinopril; lp1 00:07 Stadol; lp1 00:07 statin drugs; lp1 - Home Meds: 00:07 pentoxifylline 400 mg oral TbER 1 tab 2 times per day [Active]; paroxetine HCl 10 mg lp1 oral tab 1 tab once daily [Active]; alprazolam 0.5 mg oral Tb24 1 tab once daily [Active]; pantoprazole 40 mg oral TbEC 1 tab once daily [Active]; amlodipine 2.5 mg tab 1 tab once daily [Active]; metoprolol succinate 25 mg oral Tb24 1 tab once daily [Active]; clonidine HCl 0.1 mg Oral tab 1 tab every 8 hours [Active]; - PMHx: 00:07 abdominal aortic aneurysm; CVA; Diabetes - NIDDM; GERD; Hypertension; TIA; lp1 - Immunization history:: Adult Immunizations up to date. - Ebola Screening: : No symptoms or risks identified at this time. - Social history:: Smoking status: Patient/guardian denies using tobacco. ROS: 01:05 Constitutional: Negative for fever, chills, and weight loss, Eyes: Negative for injury, tw4 pain, redness, and discharge, ENT: Negative for injury, pain, and discharge, Cardiovascular: Negative for chest pain, palpitations, and edema, Respiratory: Negative for shortness of breath, cough, wheezing, and pleuritic chest pain, Abdomen/GI: Negative for abdominal pain, nausea, vomiting, diarrhea, and constipation, Back: Negative for injury and pain, MS/Extremity: Negative for injury and deformity. 01:05 Neuro: Positive for speech changes, Negative for altered mental status, dizziness, gait disturbance, headache, hearing loss, loss of consciousness, syncope, near syncope, tingling, tinnitus, tremor. Exam: 01:05 Constitutional: This is a well developed, well nourished patient who is awake, alert, tw4 and in no acute distress. Head/Face: Normocephalic, atraumatic. Chest/axilla: Normal chest wall appearance and motion. Nontender with no deformity. No lesions are appreciated. Cardiovascular: Regular rate and rhythm with a normal S1 and S2. No gallops, murmurs, or rubs. Normal PMI, no JVD. No pulse deficits. Respiratory: Lungs have equal breath sounds bilaterally, clear to auscultation and percussion. No rales, rhonchi or wheezes noted. No increased work of breathing, no retractions or nasal flaring. Abdomen/GI: Soft, non-tender, with normal bowel sounds. No distension or tympany. No guarding or rebound. No evidence of tenderness throughout. Back: No spinal tenderness. No costovertebral tenderness. Full range of motion. MS/ Extremity: Pulses equal, no cyanosis. Neurovascular intact. Full, normal range of motion. 01:05 Neuro: Orientation: is normal, Mentation: is normal, Cerebellar function: is grossly normal, Motor: is normal. Vital Signs: 00:03 BP 176 / 97; Pulse 74; Resp 18; Temp 97.4(TE); Pulse Ox 100% on R/A; Weight 56.7 kg lp1 (R); Height 5 ft. 7 in. (170.18 cm); Pain 6/10; 00:30 BP 191 / 97; Pulse 82; Resp 18; Pulse Ox 100% on R/A; lp1 00:40 BP 189 / 91; Pulse 80; Resp 20; Pulse Ox 100% on R/A; lp1 01:21 BP 191 / 96; Pulse 83; Resp 20; Pulse Ox 97% on R/A; lp1 01:25 BP 197 / 87; Pulse 74; Resp 15; Pulse Ox 99% ; rr5 01:40 BP 140 / 81; Pulse 90; Resp 16; Pulse Ox 98% ; rr5 02:26 BP 163 / 88; Pulse 82; Resp 18; Pulse Ox 100% ; rr5 00:03 Body Mass Index 19.58 (56.70 kg, 170.18 cm) lp1 01:40 nicardipine drip discontinued. rr5 02:26 nicardipine drip restarted. rr5 NIH Stroke Scale Scores: 00:00 NIHSS Score: 3 lp1 MDM: 09/07 23:57 Patient medically screened. tw4 09/08 01:05 Data reviewed: vital signs, nurses notes. Data interpreted: Pulse oximetry: tw4 Interpretation:. Test interpretation: by ED physician or midlevel provider: ECG. Counseling: I had a detailed discussion with the patient and/or guardian regarding: the historical points, exam findings, and any diagnostic results supporting the discharge/admit diagnosis, lab results, radiology results. ED course: Pt's CT scan revealed pontine hemorrhage measuring 0.5 cm x 0.9 cm . Pt will need higher level of care secondary to lack of Neurosurgery coverage.. 01:20 ED course: Pt will require BP control with Cardene drip. D/W Dr Lou for [facility] who tw4 agrees and accepts patient from transfer to the neuro ICU [id number]. 02:18 Counseling: I had a detailed discussion with the patient and/or guardian regarding: the tw4 presence of at least one elevated blood pressure reading (>120/80) during this emergency department visit. 09/07 23:55 Order name: Hepatic Function; Complete Time: 01:01 lp1 09/08 01:01 Interpretation: Normal except: ALB 3.3; ALK 159; GLOB 4.1; A/G 0.8. tw4 09/07 23:55 Order name: Troponin (emerg Dept Use Only); Complete Time: 01:01 lp1 09/08 01:02 Interpretation: Within normal limits: TROPED < 0.02. tw4 09/07 23:55 Order name: Basic Metabolic Panel; Complete Time: 01:01 1 09/08 01:01 Interpretation: Normal except: GLUC 180; GFR 67. tw4 09/07 23:55 Order name: CBC with Diff; Complete Time: 01:01 1 09/08 01:02 Interpretation: Normal except: HGB 11.4; HCT 34.2; MCV 76.5; MCH 25.4; RDW 20.4. tw4 09/07 23:55 Order name: Protime (+inr); Complete Time: 01:01 1 09/08 01:02 Interpretation: Within normal limits: PT 11.7. tw4 09/07 23:55 Order name: Ptt, Activated; Complete Time: 01:01 1 09/08 01:03 Interpretation: Within normal limits: PTT 28.5. tw4 09/07 23:55 Order name: Call for Old EKG; Complete Time: 00:01 1 09/07 23:55 Order name: CT Stroke Brain w/o Contrast [facility] 09/07 23:55 Order name: Stroke CXR 1 View [facility] 09/08 00:07 Order name: Glucose, Ancillary Testing; Complete Time: 01:01 [facility] 09/08 01:02 Interpretation: Normal except: GLUC,ANCIL 176. tw4 09/08 00:41 Order name: CBC Smear Scan; Complete Time: 01:01 [facility] 09/07 23:55 Order name: EKG; Complete Time: 08:42 1 09/07 23:55 Order name: Accucheck; Complete Time: 00:22 1 09/07 23:55 Order name: Cardiac monitoring; Complete Time: 00:22 1 09/07 23:55 Order name: EKG - Nurse/Tech; Complete Time: 00:16 1 09/07 23:55 Order name: IV Saline Lock; Complete Time: 00:22 1 09/07 23:55 Order name: Labs collected and sent; Complete Time: 00:22 1 09/07 23:55 Order name: NPO; Complete Time: 00:23 1 09/07 23:55 Order name: O2 Per Protocol; Complete Time: 00:23 lp1 09/07 23:55 Order name: O2 Sat Monitoring; Complete Time: 00:23 1 09/07 23:55 Order name: Stroke Swallow Screen; Complete Time: 00:58 lp1 EC:20 Rate is 74 beats/min. Rhythm is regular. QRS [place] is Normal. [place] interval is normal. QRS tw4 interval is normal. QT interval is normal. No Q waves. T waves are Normal. No ST changes noted. Clinical impression: Normal ECG. Interpreted by me. Reviewed by me. Administered Medications: 01:25 Drug: niCARdipine (25mg/250mL) 5 mg/h {Note: BP 197/87.} Route: IV; Rate: Titrate; rr5 Site: right antecubital; 01:40 Follow up: Response: Blood pressure is lowered; IV Status: Order to discontinue rr5 infusion; BP of 140/80 02:26 Follow up: Response: Blood pressure is elevated; IV Status: Infusion continued upon rr5 transfer; BP 163/88 mmHg nicardipine restarted. 01:38 Not Given (Duplicate Order): Cardene 5 mcg/kg/min IV at calculated rate continuous; rr5 5mg/hr Point of Care Testing: Blood Glucose: 09/07 23:56 Blood Glucose: 178 mg/dL; lp1 Ranges: Critical Glucose Levels:Adult <50 mg/dl or >400 mg/dl <40 mg/dl or >180 mg/dl Disposition: 09/08/19 00:55 Transfer ordered to [facility]. Diagnosis are Dysphasia following nontraumatic intracerebral hemorrhage, Hypertensive emergency. - Reason for transfer: Higher level of care. - Accepting physician is Dr Lou . - Condition is Stable. - Problem is new. - Symptoms have improved. Critical care time excluding procedures: 09/08 01:20 Critical care time: Bedside Care: 40 minutes, Consultation: 5 minutes, Family tw4 Intervention: 2 minutes. Total time: 47 minutes NIH Stroke Scale - NIH Stroke Score Date: 09/08/2019 Time: 00:00 Total Score = 3 1a. Level of Consciousness (LOC) - 0(Alert) 1b. Level of Consciousness (LOC) (Year \T\ Age) - 0(Both) 1c. LOC Commands (Open \T\ Closes Eyes/Fresh Foods Technician) - 0(Both) 2. Best Gaze (Lateral Gaze Paresis) - 0(Normal) 3. Visual Field Loss - 0(No visual loss) 4. Facial Palsy - 0(Normal) 5a. Left Arm: Motor (10-second hold) - 0(No drift) 5b. Right Arm: Motor (10-second hold) - 0(No drift) 6a. Left Leg: Motor (5-second hold - always test supine) - 1(Drift) 6b. Right Leg: Motor (5-second hold - always test supine) - 0(No drift) 7. Limb Ataxia (finger/nose \T\ heel/luna - test with eyes open) - 0(Absent) 8. Sensory Loss (pinprick arms/legs/face) - 1(Mild to moderate loss) 9. Best Language: Aphasia (description/naming/reading) - 1(Mild to moderate aphasia) 10. Dysarthria (speech clarity - read or repeat words) - 0(Normal) 11. Extinction and Inattention (visual/tactile/auditory/spatial/personal) - 0(No abnormality) Initials: lp1 Signatures: Dispatcher [employer] EDKY Tonia Finley RN RN lp1 Negrito Phelps MD MD tw4 Jason Beckwith RN RN rr5 Corrections: (The following items were deleted from the chart) 00:32 09/07 23:55 CT-STROKE BRAIN W/O CONTRAST+CT.RAD.BRZ ordered. [facility] 09/08 02:42 00:55 09/08/2019 00:55 Transfer ordered to [facility]. rr5 Diagnosis is Dysphasia following nontraumatic intracerebral hemorrhage; Hypertensive emergency. Reason for transfer: Higher level of care. Accepting physician is Dr Lou . Condition is Stable. Problem is new. Symptoms have improved. tw4
[2019-09-08] MEDS ORDERED: Nicardipine/NS 25 MG/250 ML KIT IV ONE (01:06)
[2019-09-08 03:46] VITALS: TEMP 97.4
[2019-09-08 04:07] VITALS: BP 163/88; O2SAT 100
--- NOTE | 2019-09-08 10:18 | RAD REPORT ---
EXAM DESCRIPTION: RAD - Chest Single View - 09/08/2019 12:20 am CLINICAL HISTORY: Facial tingling, left arm weakness, Stroke protocol chest examination COMPARISON: July 08 ; June 2018 and September 2015 TECHNIQUE: AP portable chest image was obtained 0010 hours . FINDINGS: No focal lung parenchymal process is seen. Interstitial pattern is not substantially diffe rent from comparison. Minimal interstitial edema or infiltrate could be present. Heart size is upper normal. Pulmonary arteries are within normal limits. No measurable pleural effusion and no pneumothor ax. No acute bony abnormality seen. Aorta is tortuous and appears dilated. This is a stable pattern f rom the recent comparison. More remote imaging shows a prominent aorta. It does appear the dilatation has progressed over time. No CT chest imaging is seen. IMPRESSION: 1. No focal lung parenchymal process seen. Minimal interstitial edema or infiltrate coul d be masked by the chronic pattern. 2. Dilated tortuous aorta, stable over short interval but showing slow progression compared to 2016. Follow-up CT chest imaging with contrast would be suggested for full evaluation of the aorta.
--- NOTE | 2019-09-08 11:52 | RAD REPORT ---
EXAM DESCRIPTION: CT - Ct Stroke Brain Wo Cont - 09/08/2019 2:00 am CLINICAL HISTORY: The patient is 79 years old and is Female; Aphasia;Numbness;Weakness TECHNIQUE: Axial computed tomography images of the head/brain without intravenous contrast. Sagitt al and coronal reformatted images were created and reviewed. This CT exam was performed using one o r more of the following dose reduction techniques: automated exposure control, adjustment of the mA and/or kV according to patient size, and/or use of iterative reconstruction technique. COMPARISON: No relevant prior studies available. FINDINGS: BRAIN: Diffuse cerebral atrophy is noted. There are nonspecific periventricular white ma tter changes, which are likely related to chronic small vessel disease. The roldan-white differentiatio n is maintained. Focal area of hemorrhage within the right racheal is present. This measures approximate ly 0.9 x 0.5 cm on coronal image 37. VENTRICLES: There is diffuse prominence of the ventricles, which is likely related to central at rophy. BONES/JOINTS: No acute fracture. SOFT TISSUES: Unremarkable. VASCULATURE: Atherosclerosis of intracranial vessels is present. Focal high density within the l eft middle cerebral artery is present. SINUSES: Unremarkable as visualized. No acute sinusitis. MASTOID AIR CELLS: Unremarkable as visualized. No mastoid effusion. ORBITS: Unremarkable as visualized. IMPRESSION: 1. Right pontine hemorrhage. 2. Focal area of hypodensity within the left middle cerebral artery which may be artifactual given the appearance. However, there is continued concern, CTA versus MRI/MRA could be performed. 3. Nonspecific periventricular white matter changes, likely related to chronic small vessel disease. 4. Diffuse cerebral atrophy. THIS REPORT CONTAINS FINDINGS THAT MAY BE CRITICAL TO PATIENT CARE: The findings were verbally discussed via telephone conference with Dr. Negrito Phelps by Dr. Emily Rich on 09/08/2019 12:32 AM BARBER TOOL SHARPENER .The results were acknowledged and understood. Electronically signed by: Lucy Rich MD 09/08/2019 12:35 AM BARBER TOOL SHARPENER Due to temporary technical issues with the PACS/Fluency reporting system, reports are being signed by the in house radiologist as a courtesy to ensure prompt reporting. The interpreting radiologist is f ully responsible for the content of the report.
--- NOTE | 2019-09-08 16:35 | EKG ---
Test Date: 2019-09-08 Test Time: 00:07:45 Composition Weatherboard Installer: SUHAS MEASUREMENT RESULTS: Intervals: Rate: 74 CA: 200 QRSD: 80 QT: 392 QTc: 435 [place]: P: 75 CA: 200 QRS: 17 T: 80 INTERPRETIVE STATEMENTS: Normal sinus rhythm Normal ECG Compared to ECG 07/10/2019 07:42:22 First degree AV block no longer present Myocardial infarct finding no longer present Electronically Signed On 09-08-19 16:34:00 DIETARY WORKER by Nadeem Swenson
== END 2019-09-08 02:42 | disposition short-term general hospital (02) ==
LOC: ER 23:50
DX: I69.191 Dysphagia following nontraumatic intracerebral hemorrhage (principal); R13.10 Dysphagia, unspecified; I16.0 Hypertensive urgency; E11.9 Type 2 diabetes mellitus without complications; I10 Essential (primary) hypertension; K21.9 Gastro-esophageal reflux disease without esophagitis; Z88.6 Allergy status to analgesic agent; Z86.73 Personal history of transient ischemic attack (TIA), and cerebral infarction without residual deficits; Z88.8 Allergy status to other drugs, medicaments and biological substances
CPT/HCPCS: 36415; 70450; 71045; 80048; 80076; 82947; 84484; 85025; 85610; 85730; 93005; 96374; 99291

== ENCOUNTER 2020-02-21 09:34 | Observation (INO) | payer OTHER ==
--- OUTSIDE RECORDS SUMMARY | 2020-02-21 10:23 | XMS REPORT | Clinical Summary ---
:1940 Author Organization [facility] Address [address] [place] [address] Care Team Providers Name Role Phone MD Jourdan Primary Care Provider Paul Sánchez Unavailable Allergies Active Allergy Reactions Severity Noted Date Comments Codeine Other (See Comments) 09/08/2019 dizzine ss Hydrocodone-Acetaminophen Other (See Comments) 018 hyperactivity Lisinopril 04/13/2018 angioedema Butorphanol Tartrate Other (See Comments) 04/14/2018 Hallucinations Hcurnrb-Uai-Xqv Reductase Other (See Comments) 018 Flu like symptoms Inhibitors Medications Medication Sig Dispensed Refills Start Date End Date Status ALPRAZolam (XANAX) Take 0.5 mg 0 Active 0.5 MG tablet by mouth 3 (three) times daily as needed for Anxiety. PARoxetine (PAXIL) Take 10 mg by 0 Active 10 MG tablet mouth every morning. loratadine Take 10 mg by 0 Activ e (CLARITIN) 10 mg mouth daily. tablet famotidine (PEPCID) Take 20 mg by 0 Active 20 MG tablet mouth daily. triamcinolone 2 sprays by 0 Acti ve (NASACORT) 55 mcg Nasal route nasal inhaler daily. acetaminophen Take 2 30 tablet 0 04/19/2018 Activ e (TYLENOL) 325 MG tablets (650 tablet mg total) by mouth every 6 (six) hours as needed for Fever. pantoprazole Take 40 mg by 0 Act ike (PROTONIX) 40 MG mouth daily. tablet cloNIDine HCl Take 0.1 mg 0 Acti ve (CATAPRES) 0.1 MG by mouth 3 tablet (three) times daily as needed. metoprolol Take 25 mg by 0 09/12/2019 Disc ontinued (TOPROL-XL) 25 MG 24 mouth daily. hr tablet pentoxifylline Take 400 mg 0 09/12/2019 Di scontinued (TRENTAL) 400 mg CR by mouth 3 tablet (three) times daily with meals. cloNIDine Place 1 patch 4 patch 0 09/15/2019 10/13/2019 Expi red (CATAPRES-TTS) 0.2 onto the skin mg/24 hr patch once a week for 28 days. metoprolol Take 1 tablet 60 tablet 1 09/12/2019 11/11/2019 Exp ired (LOPRESSOR) 50 MG (50 mg total) tablet by mouth 2 (two) times daily for 60 days. amLODIPine (NORVASC) Take 1 tablet 30 tablet 1 09/12/201910/22 10 MG tablet (10 mg total) by mouth daily for 60 days. traMADol (ULTRAM) 50 Take 1 tablet 30 tablet 0 09/12/201908/22 mg tablet (50 mg total) by mouth every 6 (six) hours as needed for up to 7 days. 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); 09/13/2019 Medicine Leandro, Essential hyper tension; Hypertensive urgency; Sarita, Abdominal aorti c aneurysm (AAA) without rupture (HCC); MD Serg At high risk for hemodynamic instability ; Thomas H/O endovascuiesha r stent graft for abdominal aortic aneurysm MD Randall 09/08/2019 Travel after 02/20/2019 Social History Tobacco Use Types Packs/Day Years [...] Vital Sign Reading Time Taken Blood Pressure 178/89 09/13/2019 7:40 AM REVIEW ANALYST Pulse 78 09/13/2019 7:40 AM REVIEW ANALYST Temperature 35.8 C (96.4 F) 09/13/2019 7:40 AM REVIEW ANALYST Respiratory Rate 18 09/13/2019 10:29 AM REVIEW ANALYST Oxygen Saturation 94% 09/13/2019 7:40 AM REVIEW ANALYST Inhaled Oxygen Concentration 21% 09/11/2019 8:05 PM REVIEW ANALYST Weight 42.2 kg (93 lb 0.6 oz) 09/08/2019 4:15 AM REVIEW ANALYST Height 167.6 cm (5' 6") 09/08/2019 4:15 AM REVIEW ANALYST Body Mass Index 15.02 09/08/2019 4:15 AM REVIEW ANALYST Plan of Treatment Not on file Implants Implanted Type Area Quality Control Assessor Device Shelf Model / Identifier Expiration Serial / Date Lot Zbigniew Iliac Aaa Leg 13x90 [id number] - [id number] CV Aneurysm Right: CO OK:AORTIC 10/13/2020 [id number] / Implanted: Qty: 1 on 04/15/2018 by Arnaldo Avelar MD Groin INTERVENTION / [id number] Closure Sys Perclose Progl 6fr 43229-70 - [id number] Cardiovascular Left: WANG 11/18/2019 [id number] / Implanted: Qty: 1 on 04/15/2018 by Arnaldo Avelar MD Groin LAB:VASC DEV / [id number] Closure Sys Perclose Progl 6fr 58511-86 - [id number] Cardiovascular Left: WANG 01/18/2020 [id number] / Implanted: Qty: 1 on 04/15/2018 by Arnaldo Avelar MD Groin LAB:VASC DEV / [id number] Closure Sys Perclose Progl 6fr 31823-84 - [id number] Cardiovascul ar Right: WANG 11/18/2019 [id number] / Implanted: Qty: 1 on 04/15/2018 by Arnaldo Avelar MD Groin LAB:VASC DEV / [id number] Closure Sys Perclose Progl 6fr 83204-42 - [id number] Cardiovascul ar Right: WANG 11/18/2019 [id number] / Implanted: Qty: 1 on 04/15/2018 by Arnaldo Avelar MD Groin LAB:[facility] DEV / [id number] [id number] Endovascular Graft N/A: [facility] 0 05/2020 [id number] / Implanted: Qty: 1 on 04/15/2018 by Arnaldo Avelar MD Groin / [id number] Aaa Iliac Leg Graft Right: [facility] 021 [id number] / Implanted: Qty: 1 on 04/15/2018 by Arnaldo Avelar MD Groin / Procedures Procedure Name Priority Date/Time Associated Comments Diagnosis RHYTHM STRIP - SCAN 09/15/2019 5:51 PM REVIEW ANALYST POCT-GLUCOSE METER Routine 09/13/2019 8:24 AM Re sults for this REVIEW ANALYST procedure are i n the results section. POCT-GLUCOSE METER Routine 09/12/2019 9:03 PM Re sults for this REVIEW ANALYST procedure are i n the results section. POCT-GLUCOSE METER Routine 09/12/2019 4:56 PM Re sults for this REVIEW ANALYST procedure are i n the results section. POCT-GLUCOSE METER Routine 09/12/2019 12:26 PM Re sults for this REVIEW ANALYST procedure are i n the results section. TROPONIN I Routine 09/12/2019 11:59 AM Results for this REVIEW ANALYST procedure are i n the results section. ECG 12-LEAD STAT 09/12/2019 10:20 AM Results for this REVIEW ANALYST procedure are i n the results section. POCT-GLUCOSE METER Routine 09/12/2019 8:29 AM Re sults for this REVIEW ANALYST procedure are i n the results section. TROPONIN I Routine 09/12/2019 4:46 AM Results for this REVIEW ANALYST procedure are i n the results section. POCT-GLUCOSE METER Routine 09/11/2019 8:56 PM Re sults for this REVIEW ANALYST procedure are i n the results section. POCT-GLUCOSE METER Routine 09/11/2019 5:16 PM Re sults for this REVIEW ANALYST procedure are i n the results section. POCT-GLUCOSE METER Routine 09/11/2019 1:36 PM Re sults for this REVIEW ANALYST procedure are i n the results section. CT BRAIN WITHOUT IV STAT 09/11/2019 12:28 PM R esults for this CONTRAST REVIEW ANALYST procedure are i n the results section. ECG 12-LEAD STAT 09/11/2019 11:25 AM Results for this REVIEW ANALYST procedure are i n the results section. POCT-GLUCOSE METER Routine 09/11/2019 7:57 AM Re sults for this REVIEW ANALYST procedure are i n the results section. POCT-GLUCOSE METER Routine 09/10/2019 9:47 PM Re sults for this REVIEW ANALYST procedure are i n the results section. POCT-GLUCOSE METER Routine 09/10/2019 5:33 PM Re sults for this REVIEW ANALYST procedure are i n the results section. POCT-GLUCOSE METER Routine 09/10/2019 12:28 PM Re sults for this REVIEW ANALYST procedure are i n the results section. POCT-GLUCOSE METER Routine 09/10/2019 10:55 AM Re sults for this REVIEW ANALYST procedure are i n the results section. POCT-GLUCOSE METER Routine 09/09/2019 8:50 PM Re sults for this REVIEW ANALYST procedure are i n the results section. POCT-GLUCOSE METER Routine 09/09/2019 12:33 PM Re sults for this REVIEW ANALYST procedure are i n the results section. POTASSIUM Routine 09/09/2019 12:25 PM Results for this REVIEW ANALYST procedure are i n the results section. MAGNESIUM Routine 09/09/2019 12:25 PM Results for this REVIEW ANALYST procedure are i n the results section. POCT-GLUCOSE METER Routine 09/09/2019 9:17 AM Re sults for this REVIEW ANALYST procedure are i n the results section. CBC (HEMOGRAM ONLY) Routine 09/09/2019 3:35 AM R esults for this REVIEW ANALYST procedure are i n the results section. PHOSPHORUS Routine 09/09/2019 3:35 AM Results for this REVIEW ANALYST procedure are i n the results section. MAGNESIUM Routine 09/09/2019 3:35 AM Results for this REVIEW ANALYST procedure are i n the results section. BASIC METABOLIC Routine 09/09/2019 3:35 AM Resul ts for this PANEL (7) REVIEW ANALYST procedure are i n the results section. POCT-GLUCOSE METER Routine 09/08/2019 6:29 PM Re sults for this REVIEW ANALYST procedure are i n the results section. CT BRAIN WITHOUT IV [place] 09/08/2019 4:13 PM R esults for this CONTRAST REVIEW ANALYST procedure are i n the results section. POCT-GLUCOSE METER Routine 09/08/2019 1:25 PM Re sults for this REVIEW ANALYST procedure are i n the results section. POCT-GLUCOSE METER Routine 09/08/2019 11:35 AM Re sults for this REVIEW ANALYST procedure are i n the results section. HEPATIC FUNCTION Routine 09/08/2019 6:09 AM Resu lts for this PANEL REVIEW ANALYST procedure are i n the results section. after 02/20/2019 Results RHYTHM STRIP - SCAN (09/15/2019 5:51 PM REVIEW ANALYST) Narrative Performed At This result has an attachment that is no t available. POC-Glucose meter (09/13/2019 8:24 AM REVIEW ANALYST)Only the most recent of19 results within the time period is included. POC-Glucose Meter 194 (H)Comment: : Notified 70 - 110 mg/dL [facility] RN/MD: TESTED AT [address], [address]: Technician Telecommunication Systems/Lead Refinery Supervisor ID = [id number] for RASHAUN RAMIREZ Specimen Blood Performing Organization Address [facility] Phone Number [address] [address] [place] Troponin I (09/12/2019 11:59 AM REVIEW ANALYST)Only the most recent of2 resultswithin the time period is included. Troponin I <0.01 0.00 - 0.03 ng/mL [facility] Specimen Blood Narrative Performed At Troponin I (TnI) levels must be interpreted [facility] in the context of the presenting symptoms and the clinical findings. Elevated TnI levels indicate myocardial damage, but are not specific for ischemic heart disease. Elevated TnI levels are seen in patients with other cardiac conditions (including myocarditis and congestive heart failure), and slight TnI elevations occur in patients with other conditions, including sepsis, renal failure, acidosis, acute neurological disease, and persistent tachyarrhythmia. Performing Organization Address City/[facility] Phone Number [address] [address] [place] ECG 12 lead (09/12/2019 10:20 AM REVIEW ANALYST)Only the most recent of2 resultswithin the time period is included. Specimen Narrative Performed At Ventricular Rate 87 BPM GE MUSE Atrial Rate 87 BPM P-R Interval 208 ms QRS Duration 80 ms Q-T Interval 368 ms QTC Calculation(Bazett) 442 ms P [place] 44 degrees R [place] -30 degrees T [place] 71 degrees Normal sinus rhythm Left axis deviation Moderate voltage criteria for LVH, may b e normal variant Cannot rule out anteroapical infarct 11 Sep 2019 Inferior infarct (cited on or before Mar-2018) Abnormal ECG When compared with ECG of 11-SEP-2019 11 :25, Borderline criteria for Lateral infarct are no longer Presentv ersus right precordial leads are no longer use d Confirmed by MD ROJAS YOCHAI ([id number]) on 09/12/2019 3:55:11 PM Procedure Note Interface, External Ris In - 09/12/2019 3:55 PM REVIEW ANALYST Ventricular Rate 87 BPM Atrial Rate 87 BPM P-R Interval 208 ms QRS Duration 80 ms Q-T Interval 368 ms QTC Calculation(Bazett) 442 ms P [place] 44 degrees R [place] -30 degrees T [place] 71 degrees Normal sinus rhythm Left axis deviation Moderate voltage criteria for LVH, may b e normal variant Cannot rule out anteroapical infarct 2 22 Aug 2019 Inferior infarct (cited on or before Mar-2018) Abnormal ECG When compared with ECG of 11-SEP-2019 11 :25, Borderline criteria for Lateral infarct are no longer Present v ersus right precordial leads are no longer used Confirmed by MD ROJAS YOCHAI ([id number]) on 09/12/2019 3:55:11 PM Performing Organization Address City/State/Zipcode Phone Number VeriTweet CT brain without IV contrast (09/11/2019 12:28 PM REVIEW ANALYST)Only the most recent of2 resultswithin the time period is included. Specimen Narrative Performed At FINAL REPORT Sleep Number CT, BRAIN, WITHOUT CONTRAST CLINICAL INDICATION:follow up ICH, w orsening headache COMPARISON: September 08, 2019 TECHNIQUE:Noncontrast axial CT imagi ng of the brain and skull. DOSE REDUCTION: Dose modulation, iterati ve reconstruction, and/or weight-based adjustment of the mA/kV was utilized to reduce the radiation dose to as low as reasonably a chievable. FINDINGS: Unchanged appearance of pontine hemorrha ge without extension or expansion. No new hemorrhage or infarct is detected in the remaining portions of the brain parenchyma. There is no midline shift or hydrocephalus. Osseous structures are st able. IMPRESSION: Stable intracranial appearance when comp ared to September 08, 2019 Signed: JR Christopher Robert MD Report Verified Date/Time:09/11/2019 12:30:54 Reading Location: [facility] B1 C013V Neuro [place] [facility] Room Procedure Note Interface, External Ris In - 09/11/2019 12:33 PM REVIEW ANALYST FINAL REPORT CT, BRAIN, WITHOUT CONTRAST CLINICAL INDICATION: follow up ICH, wor sening headache COMPARISON: September 08, 2019 TECHNIQUE: Noncontrast axial CT imaging of the brain and skull. DOSE REDUCTION: Dose modulation, iterati ve reconstruction, and/or weight-based adjustment of the mA/kV was utilized to reduce the radiation dose to as low as reasonably a chievable. FINDINGS: Unchanged appearance of pontine hemorrha ge without extension or expansion. No new hemorrhage or infarct is detected in the remaining portions of the brain parenchyma. There is no midline shift or hydrocephalus. Osseous structures are st able. IMPRESSION: Stable intracranial appearance when comp ared to September 08, 2019 Signed: JR Christopher Robert MD Report Verified Date/Time: 09/11/2019 1 2:30:54 Reading Location: [facility] C013V Neuro [place] [facility] Room Performing Organization Address City/[facility]/Zipcode Phone Number RIS Potassium (09/09/2019 12:25 PM REVIEW ANALYST) Potassium 3.7 3.5 - 5.1 meq/L [facility] Specimen Blood Narrative Performed At Check Serum Potassium level 2 hours after [facility] oral potassium replacement completed or 30 min after intravenous potassium replacement. Performing Organization Address City/State/Zipcode Phone Number [facility] [address] [place] [address] CENTER Magnesium (09/09/2019 12:25 PM REVIEW ANALYST)Only the most recent of2 resultswithin the time period is included. Magnesium 2.3 1.6 - 2.6 mg/dL [facility] Specimen Blood Narrative Performed At Check Serum Potassium level 2 hours after [facility] oral potassium replacement completed or 30 min after intravenous potassium replacement. Performing Organization Address City/[facility] Phone Number [address] [address] [place] CBC (Hemogram only) (09/09/2019 3:35 AM REVIEW ANALYST) WBC 9.5 3.5 - 10.5 K/L [facility] RBC 4.40 3.93 - 5.22 M/L [facility] Hemoglobin 10.9 (L) 11.2 - 15.7 GM/DL [facility] Hematocrit 34.9 34.1 - 44.9 % [facility] MCV 79.3 (L) 79.4 - 94.8 fL [facility] MCH 24.8 (L) 25.6 - 32.2 pg [facility] MCHC 31.2 (L) 32.2 - 35.5 GM/DL [facility] RDW 19.2 (H) 11.7 - 14.4 % [facility] Platelets 236 150 - 450 K/CU MM [facility] MPV 9.2 (L) 9.4 - 12.3 fL [facility] nRBC 0 0 - 0 /100 WBC [facility] Specimen Blood Performing Organization Address City/[facility] Phone Number [phone] [place] [address] [place] Phosphorus (09/09/2019 3:35 AM REVIEW ANALYST) Phosphorus 2.9 2.3 - 4.7 mg/dL [facility] Specimen Blood Narrative Performed At Once on admission and Daily AM afterward s [facility] Once on admission and Daily AM afterward s Once on admission and Daily AM afterwards Performing Organization Address [facility] Phone Number [phone] [place] Basic Metabolic Panel (09/09/2019 3:35 AM REVIEW ANALYST) Sodium 140 136 - 145 meq/L [facility] Potassium 3.6 3.5 - 5.1 meq/L [facility] Chloride 106 98 - 107 meq/L [facility] CO2 25 22 - 29 meq/L [facility] BUN 13 7 - 21 mg/dL [facility] Creatinine 0.78 0.57 - 1.25 mg/dL [facility] Glucose 178 (H) 70 - 105 mg/dL [facility] Calcium 9.1 8.4 - 10.2 mg/dL [facility] EGFR 72Comment: ESTIMATED GFR IS mL/min/1.73 sq m [facility] NOT ACCURATE CREATININE [facility] CLEARANCE IN PREDICTING GLOMERULAR FILTRATION RATE. ESTIMATED GFR IS NOT APPLICABLE FOR DIALYSIS PATIENTS. Specimen Blood Narrative Performed At Once on admission and Daily AM afterward s [facility] Once on admission and Daily AM afterward s Once on admission and Daily AM afterwards Performing Organization Address City/State/Zipcode Phone Number [phone] [place] Hepatic function panel (09/08/2019 6:09 AM REVIEW ANALYST) Protein, Total 7.5 6.0 - 8.3 gm/dL [facility] Albumin 4.0 3.5 - 5.0 g/dL [facility] Total Bilirubin 0.6 0.2 - 1.2 mg/dL [facility] Bilirubin, Direct 0.2 0.1 - 0.5 mg/dL [facility] Alkaline Phosphatase 163 (H) 40 - 150 U/L [facility] AST 22 5 - 34 U/L [facility]AS[facility] ALT 18 6 - 55 U/L [facility] OBDULIA [facility] Specimen Blood Performing Organization Address City/State/Zipcode Phone Number MONICA VELASQUEZ [facility] [address] [place] [address] CENTER after 02/20/2019 Insurance Payer Benefit Plan / Group Subscriber ID Type Phone A ddress MEDICARE MEDICARE A B xxxxxxxxxxx Medicare MCR SUPPLEMENT/[employer] xxxxxxxx Medigap Advance Directives For more information, please contact:MONICA Tesfaye [id number] [place], [place] [phone] Code Status Date Activated Date Inactivated Comments Full Code 09/08/2019 4:26 AM 09/13/2019 3:28 PM This code status was determined by: Patient Full Code 04/15/2018 10:55 AM 04/19/2018 6:23 PM This code status was determined by: Patient Full Code 04/15/2018 6:03 AM 04/15/2018 10:55 AM This code status was determined by: Patient
--- OUTSIDE RECORDS SUMMARY | 2020-02-21 10:24 | XMS REPORT | Continuity of Care Document ---
:1940 Author Organization [facility] t Address [address] [place] [address] Care Team Providers Name Role Phone GAYE BENOIT Attending Clinician Unavailable TK ANN Attending Clinician Unavailable GAYE BENOIT Admitting Clinician Unavailable TK ANN Admitting Clinician Unavailable Problems This patient has no known problems. Allergies, Adverse Reactions, Alerts This patient has no known allergies or adverse reactions. Medications This patient has no known medications. Procedures This patient has no known procedures. Results Test Description Test Time Test Comments Results Result Comments Source POCT-GLUCOSE METER 2019-09-13 08:37:00 Test Item Value Reference Range Interpretation Comme nts POC-GLUCOSE METER (GAMA) 194 mg/dL 70-110 H : Notified RN/MD: TESTED AT [facility] (test code = 1538) [address] [place] [address], [address]: Transfer Worker/Techni chalino ID = [id number] for TSEGGAI, TSIGHE REDA POCT-GLUCOSE [id number] 21:14:00 Test Item Value Reference Range Interpretation Comments POC-GLUCOSE METER 232 mg/dL 70-110 H : Notified RN/MD: (GAMA) (test code = TESTED AT [place] [address] 1538) [facility], [address]: Transfer Worker/Techni cahlino ID = [id number] for LATHBRIDGE, JUANITA ICE POCT-GLUCOSE [id number] 17:08:00 Test Item Value Reference Range Interpretation Comments POC-GLUCOSE METER 210 mg/dL 70-110 H : TESTED A T [place] [address] (GAMA) (test code [facility], = 1538) [address]: Transfer Worker/Techni chalino ID = [id number] for TSEG GAI, TSIGHEREDA POCT-GLUCOSE [id number] 12:37:00 Test Item Value Reference Range Interpretation Comments POC-GLUCOSE METER 206 mg/dL 70-110 H : TESTED A T [facility] 67[facility] (BEAKER) (test code [facility], = 1538) [address]: Transfer Worker/Techni chalino ID = [id number] for KANNAN GAMiguel, TSROCCOEREDA TROPONIN [id number] 12:31:00 Test Item Value Reference Range Interpretation Comments TROPONIN I (GAMA) (test code = 397) < ng/mL 0.00-0.03 Troponin I (TnI) levels must be interpreted in the context of the presenting symptoms and the clinical findings. Elevated TnI levels indicate myocardial damage, but are not specific for ischemic heart disease. Elevated TnI levels are seen in patients with other cardiac conditions (including myocarditis and congestive heart failure), and slight TnI elevations occur in patients with other conditions, including sepsis, renal failure, acidosis, acute neurological disease, and persistent tachyarrhythmia.POCT-GLUCOSE [id number] 08:45:00 Test Item Value Reference Range Interpretation Comments POC-GLUCOSE METER 194 mg/dL 70-110 H : Notified RN/MD: TESTED (GAMA) (test code AT [facility] [address] [facility] = 1538) [facility], [address]: Transfer Worker/Techni chalino ID = [id number] for KANNAN GAI, TSBRANDONA TROPONIN [id number] 06:15:00 Test Item Value Reference Range Interpretation Comments TROPONIN I (GAMA) (test code = 397) < ng/mL 0.00-0.03 Troponin I (TnI) levels must be interpreted in the context of the presenting symptoms and the clinical findings. Elevated TnI levels indicate myocardial damage, but are not specific for ischemic heart disease. Elevated TnI levels are seen in patients with other cardiac conditions (including myocarditis and congestive heart failure), and slight TnI elevations occur in patients with other conditions, including sepsis, renal failure, acidosis, acute neurological disease, and persistent tachyarrhythmia.POCT-GLUCOSE [id number] 21:12:00 Test Item Value Reference Range Interpretation Comments POC-GLUCOSE METER 229 mg/dL 70-110 H : TESTED A T [facility] (BEAKER) (test code = [place] [facility], 1538) [address]: Transfer Worker/Techni chalino ID = [id number] for DE NNIS, DINO POCT-GLUCOSE [id number] 17:27:00 Test Item Value Reference Range Interpretation Comments POC-GLUCOSE METER 148 mg/dL 70-110 H : Notified RN/MD: (GAMA) (test code = TESTED AT [place] [address] 1538) [facility], [address]: Transfer Worker/Techni chalino ID = [id number] for JD MENDEZ POCT-GLUCOSE [id number] 13:47:00 Test Item Value Reference Range Interpretation Comments POC-GLUCOSE METER 252 mg/dL 70-110 H : TESTED A T [place] [address] (CRISTHIANDIANNA) (test code = [place] [facility], 1538) [address]: Transfer Worker/Techni chalino ID = [id number] for FLY SOLIS CT, BRAIN, WITHOUT [id number] 12:30:00FINAL REPORT CT, BRAIN, WITHOUT CONTRAST CLINICAL INDICATION: follow up [facility], worsening headache COMPARISON: September 08, 2019 TECHNIQUE: Noncontrast axial CT imaging of the brain and skull. DOSE REDUCTION: Dose modulation, iterative reconstruction, and/or weight-based adjustment of the mA/kV was utilized to reduce the radiation dose to as low as reasonably achievable. 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 No new hemorrhage or infarct is detected in the remaining portions of the brain parenchyma. There is no midline shift or hydrocephalus. Osseous structures are stable. IMPRESSION: Stable intracranial appearance when compared to September 08, 2019 Signed: JR Christopher Robert MDReport Verified Date/Time: 09/11/2019 12:30:54 Reading Location: [address] Neuro Reading Room POCT-GLUCOSE METER 2019-09-11 08:09:00 Test Item Value Reference Range Interpretation Comments POC-GLUCOSE METER 193 mg/dL 70-110 H : Notified RN/MD: (GAMA) (test code = TESTED AT [place] [address] 1538) [facility], [address]: Transfer Worker/Techni chalino ID = [id number] for NORMA GOFFO, MILADETI POCT-GLUCOSE [id number] 22:01:00 Test Item Value Reference Range Interpretation Comments POC-GLUCOSE METER 251 mg/dL 70-110 H : Notified RN/MD: (CRISTHIANAKER) (test code = TESTED AT [facility] 1538) [facility], [address]: Transfer Worker/Techni chalino ID = [id number] for JUANITA TATUM POCT-GLUCOSE [id number] 18:45:00 Test Item Value Reference Range Interpretation Comments POC-GLUCOSE METER 192 mg/dL 70-110 H : TESTED A T [facility] 6720 (BEAKER) (test code = [facility], 1538) [address]: Transfer Worker/Techni chalino ID = [id number] for FLY SOLIS POCT-GLUCOSE [id number] 12:40:00 Test Item Value Reference Range Interpretation Comments POC-GLUCOSE METER 198 mg/dL 70-110 H : TESTED A T [facility] 6720 (BEAKER) (test code = [facility], 1538) [address]: Transfer Worker/Techni chalino ID = [id number] for LAMONT LANDRY FYL POCT-GLUCOSE [id number] 11:07:00 Test Item Value Reference Range Interpretation Comments POC-GLUCOSE METER 223 mg/dL 70-110 H : TESTED A T [facility] 6720 (BEAKER) (test code = [facility], 1538) [address]: Transfer Worker/Techni chalino ID = [id number] for LAMONT LANDRY FLY POCT-GLUCOSE [id number] 21:01:00 Test Item Value Reference Range Interpretation Comments POC-GLUCOSE METER 284 mg/dL 70-110 H : TESTED A T [facility] 6720 (BEAKER) (test code = [facility], 1538) [address]: Transfer Worker/Techni chalino ID = [id number] for JOSE MOREJON NADINA [id number] 13:03:00 Test Item Value Reference Range Interpretation Comments POTASSIUM (BEAKER) (test code = 3.7 meq/L 3.5-5.1 379) Check Serum Potassium level 2 hours after oral potassium replacement completed or 30 min after intravenous potassium replacement.[id number] 13:03:00 Test Item Value Reference Range Interpretation Comments MAGNESIUM (BEAKER) (test code = 2.3 mg/dL 1.6-2.6 627) Check Serum Potassium level 2 hours after oral potassium replacement completed or 30 min after intravenous potassium replacement.POCT-GLUCOSE [id number] 12:44:00 Test Item Value Reference Range Interpretation Comments POC-GLUCOSE METER 188 mg/dL 70-110 H : TESTED A T [facility] 6720 (BEAKER) (test code = [place] [facility], 1538) [address]: Transfer Worker/Techni chalino ID = [id number] for TAQUERIA MCNULTY POCT-GLUCOSE [id number] 09:29:00 Test Item Value Reference Range Interpretation Comments POC-GLUCOSE METER 179 mg/dL 70-110 H : Notified RN/MD: (BEAKER) (test code = TESTED AT [facility] 6720 1538) [facility], [address]: Transfer Worker/Techni chalino ID = [id number] for ELZA RAO [id number] 04:17:00 Test Item Value Reference Range Interpretation Comments PHOSPHORUS (BEAKER) (test code = 2.9 mg/dL 2.3-4.7 604) Once on admission and Daily AM afterwardsOnce on admission and Daily AM afterwardsOnce on admission and Daily AM [id number] 04:17:00 Test Item Value Reference Range Interpretation Comments MAGNESIUM (BEAKER) (test code = 1.8 mg/dL 1.6-2.6 627) Once on admission and Daily AM afterwardsOnce on admission and Daily AM afterwardsOnce on admission and Daily AM afterwardsBASIC METABOLIC PANEL 2019-09-09 04:17:00 Test Item Value Reference Range Interpretation Comments SODIUM (BEAKER) 140 meq/L 136-145 (test code = 381) POTASSIUM (BEAKER) 3.6 meq/L 3.5-5.1 (test code = 379) CHLORIDE (BEAKER) 106 meq/L 98-107 (test code = 382) CO2 (BEAKER) (test 25 meq/L 22-29 code = 355) BLOOD UREA NITROGEN 13 mg/dL 7-21 (BEAKER) (test code = 354) CREATININE (BEAKER) 0.78 mg/dL 0.57-1.25 (test code = 358) GLUCOSE RANDOM 178 mg/dL 70-105 H (BEAKER) (test code = 652) CALCIUM (BEAKER) 9.1 mg/dL 8.4-10.2 (test code = 697) EGFR (BEAKER) (test 72 mL/min/1.73 ESTIMA DOMITILA GFR IS code = 1092) sq m NOT ACCURATE CREATININE CLEARANCE IN PREDICTING GLOMERULAR FILTRATION RATE . ESTIMATED GFR I S NOT APPLICABLE FOR DIALYSIS PATIEN TS. Once on admission and Daily AM afterwardsOnce on admission and Daily AM afterwardsOnce on admission and Daily AM afterwardsCBC (HEMOGRAM ONLY)2019-09-09 03:55:00 Test Item Value Reference Range Interpretation Comments WHITE BLOOD CELL COUNT (BEAKER) 9.5 K/ L 3.5-10.5 (test code = 775) RED BLOOD CELL COUNT (BEAKER) 4.40 M/ L 3.93-5.22 (test code = 761) HEMOGLOBIN (BEAKER) (test code = 10.9 GM/DL 11.2-15.7 L 410) HEMATOCRIT (BEAKER) (test code = 34.9 % 34.1-44.9 411) MEAN CORPUSCULAR VOLUME (BEAKER) 79.3 fL 79.4-94.8 L (test code = 753) MEAN CORPUSCULAR HEMOGLOBIN 24.8 pg 25.6-32.2 L (BEAKER) (test code = 751) MEAN CORPUSCULAR HEMOGLOBIN CONC 31.2 GM/DL 32.2-35.5 L (BEAKER) (test code = 752) RED CELL DISTRIBUTION WIDTH 19.2 % 11.7-14.4 H (BEAKER) (test code = 412) PLATELET COUNT (BEAKER) (test 236 K/CU MM 150-450 code = 756) MEAN PLATELET VOLUME (BEAKER) 9.2 fL 9.4-12.3 L (test code = 754) NUCLEATED RED BLOOD CELLS 0 /100 WBC 0-0 (BEAKER) (test code = 413) POCT-GLUCOSE [id number] 21:26:00 Test Item Value Reference Range Interpretation Comments POC-GLUCOSE METER 250 mg/dL 70-110 H : TESTED A T [facility] 6720 (BEAKER) (test code = [facility], 1538) [address]: Transfer Worker/Techni chalino ID = [id number] for An Yasmin julien CT, BRAIN, WITHOUT [id number] 17:20:00FINAL REPORT CT, BRAIN, WITHOUT CONTRAST INDICATION: Cerebral hemorrhage suspected TECHNIQUE: Noncontrast axial imaging was obtained from the vertex to the skull base. Axial images were reconstructed using a bone algorithm. DOSE REDUCTION: Dose modulation, iterative reconstruction, and/or weight-based adjustment of the mA/kV was utilized to reduce the radiation dose to as low as reasonably achievable. COMPARISON: None. FINDINGS: Intracranial: Faint hyperattenuating focus within the right dorsal racheal. 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 Generalized cerebral atrophy with ex vacuo dilatation of the ventricular system proportionate to sulci. Extensive, confluent hypoattenuation within the periventricular and subcortical white matter is a nonspecific finding commonly attributed to chronic small vessel ischemic disease. No abnormal extra-axial collection. No evidence of acute territorial infarct. No mass effect. No hydrocephalus. Osseous structures: No fracture. No suspicious lesion. Paranasal sinuses and mastoid air cells: No evidence of sinusitis. Mastoids are clear. Orbital contents: Globes are intact. IMPRESSION: Faintly hyperdense focus within the right dorsal racheal may represent an evolving hemorrhage or cavernous malformation. Correlation with prior exam would be helpful. Alternatively, MRI may be performed for further characterization. Signed: Suzie Fariasort Verified Date/Time: 09/08/2019 17:20:18 POCT-GLUCOSE [id number] 13:37:00 Test Item Value Reference Range Interpretation Comments POC-GLUCOSE METER 168 mg/dL 70-110 H : TESTED A T [facility] 6720 (Celnyx) (test code = [facility], 1538) [address]: Transfer Worker/Techni chalino ID = [id number] for An Arianna julienia POCT-GLUCOSE [id number] 11:53:00 Test Item Value Reference Range Interpretation Comments POC-GLUCOSE METER 193 mg/dL 70-110 H : TESTED A T [facility] 6720 (Celnyx) (test code = [facility], 1538) [address]: Transfer Worker/Techni chalino ID = [id number] for LL OYD, TIKEYA HEPATIC FUNCTION [id number] 07:38:00 Test Item Value Reference Range Interpretation Comments TOTAL PROTEIN (Celnyx) (test code = 7.5 gm/dL 6.0-8.3 770) ALBUMIN (BEAKER) (test code = 1145) 4.0 g/dL 3.5-5.0 BILIRUBIN TOTAL (BEAKER) (test code 0.6 mg/dL 0.2-1.2 = 377) BILIRUBIN DIRECT (BEAKER) (test 0.2 mg/dL 0.1-0.5 code = 706) ALKALINE PHOSPHATASE (BEAKER) (test 163 U/L 40-150 H code = 346) AST (SGOT) (BEAKER) (test code = 22 U/L 5-34 353) ALT (SGPT) (BEAKER) (test code = 18 U/L 6-55 347) RAD, CHEST, 1 VIEW, NON [id number] 10:16:00Reason for exam:->S/P EVARShould this be performed at [...] Talavera Verified Date/Time: 04/19/2018 10:16:05 Reading Location: [facility] Radiology Reading Room [id number] 05:21:00 Test Item Value Reference Range Interpretation Comments PHOSPHORUS (BEAKER) (test code = 4.0 mg/dL 2.3-4.7 604) [id number] 05:21:00 Test Item Value Reference Range Interpretation Comments MAGNESIUM (BEAKER) (test code = 2.2 mg/dL 1.6-2.6 627) BASIC METABOLIC [id number] 05:21:00 Test Item Value Reference Range Interpretation Comments SODIUM (BEAKER) 141 meq/L 136-145 (test code = 381) POTASSIUM (BEAKER) 3.6 meq/L 3.5-5.1 (test code = 379) CHLORIDE (BEAKER) 106 meq/L 98-107 (test code = 382) CO2 (BEAKER) (test 28 meq/L 22-29 code = 355) BLOOD UREA NITROGEN 20 mg/dL 7-21 (BEAKER) (test code = 354) CREATININE (BEAKER) 0.87 mg/dL 0.57-1.25 (test code = 358) GLUCOSE RANDOM 122 mg/dL 70-105 H (BEAKER) (test code = 652) CALCIUM (BEAKER) 9.0 mg/dL 8.4-10.2 (test code = 697) EGFR (BEAKER) (test 63 mL/min/1.73 ESTIMA DOMITILA GFR IS code = 1092) sq m NOT ACCURATE CREATININE CLEARANCE IN PREDICTING GLOMERULAR FILTRATION RATE . ESTIMATED GFR I S NOT APPLICABLE FOR DIALYSIS PATIAIDEN GREEN [id number] 04:58:00 Test Item Value Reference Range Interpretation Comments PARTIAL THROMBOPLASTIN TIME 36.6 seconds 22.5-36.0 H (BEAKER) (test code = 760) PROTHROMBIN [id number] 04:57:00 Test Item Value Reference Range Interpretation Comments PROTIME (BEAKER) (test code = 15.9 seconds 11.7-14.7 H 759) INR (BEAKER) (test code = 370) 1.3 <=5.9 RECOMMENDED COUMADIN/WARFARIN INR THERAPY RANGESSTANDARD DOSE: 2.0 - 3.0 Includes: PROPHYLAXIS forvenous thrombosis, systemic embolization; TREATMENT for venous thrombosis and/or pulmonary embolus.HIGH RISK: Target INR is 2.5-3.5 for patients with mechanical heart valves.CBC (HEMOGRAM ONLY)2018-04-19 04:47:00 Test Item Value Reference Range Interpretation Comments WHITE BLOOD CELL COUNT (BEAKER) 9.5 K/ L 3.5-10.5 (test code = 775) RED BLOOD CELL COUNT (BEAKER) 3.64 M/ L 3.93-5.22 L (test code = 761) HEMOGLOBIN (BEAKER) (test code = 10.6 GM/DL 11.2-15.7 L 410) HEMATOCRIT (BEAKER) (test code = 33.8 % 34.1-44.9 L 411) MEAN CORPUSCULAR VOLUME (BEAKER) 92.9 fL 79.4-94.8 (test code = 753) MEAN CORPUSCULAR HEMOGLOBIN 29.1 pg 25.6-32.2 (BEAKER) (test code = 751) MEAN CORPUSCULAR HEMOGLOBIN CONC 31.4 GM/DL 32.2-35.5 L (BEAKER) (test code = 752) RED CELL DISTRIBUTION WIDTH 14.1 % 11.7-14.4 (BEAKER) (test code = 412) PLATELET COUNT (BEAKER) (test 232 K/CU MM 150-450 code = 756) MEAN PLATELET VOLUME (BEAKER) 10.9 fL 9.4-12.3 (test code = 754) NUCLEATED RED BLOOD CELLS 0 /100 WBC 0-0 (BEAKER) (test code = 413) RAD, CHEST, 1 VIEW, NON [id number] 08:00:00Reason for exam:->S/P EVARShould this be performed at the bedside?->YesFINAL REPORT Chest one view INDICATION: EVAR COMPARISON: 04/17/2018 IMPRESSION: The aorta remains ectatic/tortuous. There is stable cardiomegaly. There are coarsened interstitial markings. Faint basilar opacities suggest atelectasis. No new consolidation, significant pleural effusion, or pneumothorax is seen. Abdominal aortic stent graft is present. The bones appear unchanged. Signed: Dena Talaveraeport Verified Date/Time: 04/18/2018 08:00:53 Reading Location: [facility] Radiology Reading Room [id number] 05:25:00 Test Item Value Reference Range Interpretation Comments PHOSPHORUS (BEAKER) (test code = 3.6 mg/dL 2.3-4.7 604) [id number] 05:25:00 Test Item Value Reference Range Interpretation Comments MAGNESIUM (BEAKER) (test code = 2.2 mg/dL 1.6-2.6 627) BASIC METABOLIC [id number] 05:25:00 Test Item Value Reference Range Interpretation Comments SODIUM (BEAKER) 139 meq/L 136-145 (test code = 381) POTASSIUM (BEAKER) 3.2 meq/L 3.5-5.1 L (test code = 379) CHLORIDE (BEAKER) 103 meq/L 98-107 (test code = 382) CO2 (BEAKER) (test 25 meq/L 22-29 code = 355) BLOOD UREA NITROGEN 17 mg/dL 7-21 (BEAKER) (test code = 354) CREATININE (BEAKER) 0.86 mg/dL 0.57-1.25 (test code = 358) GLUCOSE RANDOM 150 mg/dL 70-105 H (BEAKER) (test code = 652) CALCIUM (BEAKER) 9.6 mg/dL 8.4-10.2 (test code = 697) EGFR (BEAKER) (test 64 mL/min/1.73 ESTIMA DOMITILA GFR IS code = 1092) sq m NOT ACCURATE CREATININE CLEARANCE IN PREDICTING GLOMERULAR FILTRATION RATE . ESTIMATED GFR I S NOT APPLICABLE FOR DIALYSIS PATIAIDEN MAYS. [id number] 05:06:00 Test Item Value Reference Range Interpretation Comments PARTIAL THROMBOPLASTIN TIME 36.5 seconds 22.5-36.0 H (BEAKER) (test code = 760) PROTHROMBIN TIME/[id number] 05:05:00 Test Item Value Reference Range Interpretation Comments PROTIME (BEAKER) (test code = 16.5 seconds 11.7-14.7 H 759) INR (BEAKER) (test code = 370) 1.3 <=5.9 RECOMMENDED COUMADIN/WARFARIN INR THERAPY RANGESSTANDARD DOSE: 2.0 - 3.0 Includes: PROPHYLAXIS forvenous thrombosis, systemic embolization; TREATMENT for venous thrombosis and/or pulmonary embolus.HIGH RISK: Target INR is 2.5-3.5 for patients with mechanical heart valves.CBC (HEMOGRAM ONLY)2018-04-18 04:52:00 Test Item Value Reference Range Interpretation Comments WHITE BLOOD CELL COUNT (BEAKER) 11.2 K/ L 3.5-10.5 H (test code = 775) RED BLOOD CELL COUNT (BEAKER) 3.90 M/ L 3.93-5.22 L (test code = 761) HEMOGLOBIN (BEAKER) (test code = 11.3 GM/DL 11.2-15.7 410) HEMATOCRIT (BEAKER) (test code = 35.7 % 34.1-44.9 411) MEAN CORPUSCULAR VOLUME (BEAKER) 91.5 fL 79.4-94.8 (test code = 753) MEAN CORPUSCULAR HEMOGLOBIN 29.0 pg 25.6-32.2 (BEAKER) (test code = 751) MEAN CORPUSCULAR HEMOGLOBIN CONC 31.7 GM/DL 32.2-35.5 L (BEAKER) (test code = 752) RED CELL DISTRIBUTION WIDTH 14.2 % 11.7-14.4 (BEAKER) (test code = 412) PLATELET COUNT (BEAKER) (test 208 K/CU MM 150-450 code = 756) MEAN PLATELET VOLUME (BEAKER) 10.6 fL 9.4-12.3 (test code = 754) NUCLEATED RED BLOOD CELLS 0 /100 WBC 0-0 (BEAKER) (test code = 413) RAD, CHEST, 1 VIEW, NON [id number] 10:31:00Reason for exam:->S/P EVARShould this be performed at the bedside?->YesFINAL REPORT Chest, one view. HISTORY: Status post aortic repair COMPARISON: IMPRESSION: No significant change. Unchanged tortuosity and ectasia of the thoracic aorta.Mild interstitial edema. No large pleural effusion or pneumothorax. Signed: Gera Hebert Verified Date/Time: 04/17/2018 10:31:41 Reading Location: [address] Body Reading Room [id number] 06:43:00 Test Item Value Reference Range Interpretation Comments PHOSPHORUS (BEAKER) (test code = 3.3 mg/dL 2.3-4.7 604) [id number] 06:43:00 Test Item Value Reference Range Interpretation Comments MAGNESIUM (BEAKER) (test code = 2.0 mg/dL 1.6-2.6 627) [id number] 06:23:00 Test Item Value Reference Range Interpretation Comments PARTIAL THROMBOPLASTIN TIME 36.4 seconds 22.5-36.0 H (BEAKER) (test code = 760) PROTHROMBIN [id number] 06:22:00 Test Item Value Reference Range Interpretation Comments PROTIME (BEAKER) (test code = 17.3 seconds 11.7-14.7 H 759) INR (BEAKER) (test code = 370) 1.4 <=5.9 RECOMMENDED COUMADIN/WARFARIN INR THERAPY RANGESSTANDARD DOSE: 2.0 - 3.0 Includes: PROPHYLAXIS forvenous thrombosis, systemic embolization; TREATMENT for venous thrombosis and/or pulmonary embolus.HIGH RISK: Target INR is 2.5-3.5 for patients with mechanical heart valves.CBC (HEMOGRAM ONLY)2018-04-17 06:13:00 Test Item Value Reference Range Interpretation Comments WHITE BLOOD CELL COUNT (BEAKER) 13.2 K/ L 3.5-10.5 H (test code = 775) RED BLOOD CELL COUNT (BEAKER) 3.84 M/ L 3.93-5.22 L (test code = 761) HEMOGLOBIN (BEAKER) (test code = 11.5 GM/DL 11.2-15.7 410) HEMATOCRIT (BEAKER) (test code = 34.9 % 34.1-44.9 411) MEAN CORPUSCULAR VOLUME (BEAKER) 90.9 fL 79.4-94.8 (test code = 753) MEAN CORPUSCULAR HEMOGLOBIN 29.9 pg 25.6-32.2 (BEAKER) (test code = 751) MEAN CORPUSCULAR HEMOGLOBIN CONC 33.0 GM/DL 32.2-35.5 (BEAKER) (test code = 752) RED CELL DISTRIBUTION WIDTH 14.0 % 11.7-14.4 (BEAKER) (test code = 412) PLATELET COUNT (BEAKER) (test 201 K/CU MM 150-450 code = 756) MEAN PLATELET VOLUME (BEAKER) 10.6 fL 9.4-12.3 (test code = 754) NUCLEATED RED BLOOD CELLS 0 /100 WBC 0-0 (BEAKER) (test code = 413) RAD, CHEST, 1 VIEW, NON [id number] 09:02:00Reason for exam:->S/P EVARShould this be performed at the bedside?->YesFINAL REPORT Chest, one view. HISTORY: Status post aortic repair COMPARISON: IMPRESSION: No significant change. Unchanged tortuosity and ectasia of the thoracic aorta.Lungs clear without focal consolidation. No large pleural effusion or pneumothorax. Unchanged right apical pleural thickening. Partially visualized aortic stent graft in the abdominal aorta. Signed: Gera Hebert Verified Date/Time: 04/16/2018 09:02:11 Reading Location: [facility] C013Y CT Body Reading Room [id number] 06:11:00 Test Item Value Reference Range Interpretation Comments PHOSPHORUS (BEAKER) (test code = 1.9 mg/dL 2.3-4.7 L 604) [id number] 06:11:00 Test Item Value Reference Range Interpretation Comments MAGNESIUM (BEAKER) (test code = 2.0 mg/dL 1.6-2.6 627) BASIC METABOLIC [id number] 06:11:00 Test Item Value Reference Range Interpretation Comments SODIUM (BEAKER) 137 meq/L 136-145 (test code = 381) POTASSIUM (BEAKER) 3.2 meq/L 3.5-5.1 L (test code = 379) CHLORIDE (BEAKER) 104 meq/L 98-107 (test code = 382) CO2 (BEAKER) (test 24 meq/L 22-29 code = 355) BLOOD UREA NITROGEN 7 mg/dL 7-21 (BEAKER) (test code = 354) CREATININE (BEAKER) 0.86 mg/dL 0.57-1.25 (test code = 358) GLUCOSE RANDOM 179 mg/dL 70-105 H (BEAKER) (test code = 652) CALCIUM (BEAKER) 9.0 mg/dL 8.4-10.2 (test code = 697) EGFR (BEAKER) (test 64 mL/min/1.73 ESTIMA DOMITILA GFR IS code = 1092) sq m NOT ACCURATE CREATININE CLEARANCE IN PREDICTING GLOMERULAR FILTRATION RATE . ESTIMATED GFR I S NOT APPLICABLE FOR DIALYSIS PATIEN TS. [id number] 05:46:00 Test Item Value Reference Range Interpretation Comments PARTIAL THROMBOPLASTIN TIME 32.0 seconds 22.5-36.0 (BEAKER) (test code = 760) PROTHROMBIN TIME/[id number] 05:45:00 Test Item Value Reference Range Interpretation Comments PROTIME (BEAKER) (test code = 15.0 seconds 11.7-14.7 H 759) INR (BEAKER) (test code = 370) 1.2 <=5.9 RECOMMENDED COUMADIN/WARFARIN INR THERAPY RANGESSTANDARD DOSE: 2.0 - 3.0 Includes: PROPHYLAXIS forvenous thrombosis, systemic embolization; TREATMENT for venous thrombosis and/or pulmonary embolus.HIGH RISK: Target INR is 2.5-3.5 for patients with mechanical heart valves.CBC (HEMOGRAM ONLY)2018-04-16 05:31:00 Test Item Value Reference Range Interpretation Comments WHITE BLOOD CELL COUNT (BEAKER) 12.0 K/ L 3.5-10.5 H (test code = 775) RED BLOOD CELL COUNT (BEAKER) 4.19 M/ L 3.93-5.22 (test code = 761) HEMOGLOBIN (BEAKER) (test code = 12.4 GM/DL 11.2-15.7 410) HEMATOCRIT (BEAKER) (test code = 38.6 % 34.1-44.9 411) MEAN CORPUSCULAR VOLUME (BEAKER) 92.1 fL 79.4-94.8 (test code = 753) MEAN CORPUSCULAR HEMOGLOBIN 29.6 pg 25.6-32.2 (BEAKER) (test code = 751) MEAN CORPUSCULAR HEMOGLOBIN CONC 32.1 GM/DL 32.2-35.5 L (BEAKER) (test code = 752) RED CELL DISTRIBUTION WIDTH 14.0 % 11.7-14.4 (BEAKER) (test code = 412) PLATELET COUNT (BEAKER) (test 223 K/CU MM 150-450 code = 756) MEAN PLATELET VOLUME (BEAKER) 10.3 fL 9.4-12.3 (test code = 754) NUCLEATED RED BLOOD CELLS 0 /100 WBC 0-0 (BEAKER) (test code = 413) [id number] 13:56:00 Test Item Value Reference Range Interpretation Comments ACTIVATED CLOTTING TIME 257 sec TEST ED AT [facility] 6720 (BEAKER) (test code = [place] [address]) [address] RAD, ABDOMEN/KUB, 1 VIEW [id number] 12:39:00Reason for exam:->Postop AAA FINAL REPORT CLINICAL HISTORY: Postop AAA TECHNIQUE: Supine abdomen COMPARISON: None IMPRESSION: The bowel gas pattern is nonspecific. Free air and air-fluid levels are not seen but cannot be definitively excluded on the supine view. There is vicarious excretion of contrast in the bilateral nephroureteral collecting systems. There is an aortobiiliac stent. Signed: Hardik DavisMDReport Verified Date/Time: 04/15/2018 12:39:57 Reading Location: [facility] Radiology Reading Room RAD, CHEST, 1 VIEW, NON [id number] 12:38:00For chest painReason for exam:->post opShould this be performed at the bedside?->YesFINAL REPORT CLINICAL HISTORY: post op TECHNIQUE: 1 view of the chest. COMPARISON: 04/10/2018 IMPRESSION: There are no focal infiltrates or effusions. Cardiomegaly is again seen with tortuosity of the thoracic aorta. Signed: Hardik Davis MDRepyarely Verified Date/Time: 04/15/201812:38:40 Reading Location: [facility] Radiology Reading Room [id number] 11:51:00 Test Item Value Reference Range Interpretation Comments PHOSPHORUS (BEAKER) (test code = 3.2 mg/dL 2.3-4.7 604) BASIC METABOLIC [id number] 11:51:00 Test Item Value Reference Range Interpretation Comments SODIUM (BEAKER) 140 meq/L 136-145 (test code = 381) POTASSIUM (BEAKER) 3.8 meq/L 3.5-5.1 (test code = 379) CHLORIDE (BEAKER) 109 meq/L 98-107 H (test code = 382) CO2 (BEAKER) (test 24 meq/L 22-29 code = 355) BLOOD UREA NITROGEN 12 mg/dL 7-21 (BEAKER) (test code = 354) CREATININE (BEAKER) 0.77 mg/dL 0.57-1.25 (test code = 358) GLUCOSE RANDOM 176 mg/dL 70-105 H (BEAKER) (test code = 652) CALCIUM (BEAKER) 9.7 mg/dL 8.4-10.2 (test code = 697) EGFR (BEAKER) (test 73 mL/min/1.73 ESTIMA DOMITILA GFR IS code = 1092) sq m NOT ACCURATE CREATININE CLEARANCE IN PREDICTING GLOMERULAR FILTRATION RATE . ESTIMATED GFR I S NOT APPLICABLE FOR DIALYSIS PATIEN TS. CBC W/PLT COUNT & AUTO [id number] 11:23:00 Test Item Value Reference Range Interpretation Comments WHITE BLOOD CELL COUNT (BEAKER) 12.0 K/ L 3.5-10.5 H (test code = 775) RED BLOOD CELL COUNT (BEAKER) 3.84 M/ L 3.93-5.22 L (test code = 761) HEMOGLOBIN (BEAKER) (test code = 11.4 GM/DL 11.2-15.7 410) HEMATOCRIT (BEAKER) (test code = 35.7 % 34.1-44.9 411) MEAN CORPUSCULAR VOLUME (BEAKER) 93.0 fL 79.4-94.8 (test code = 753) MEAN CORPUSCULAR HEMOGLOBIN 29.7 pg 25.6-32.2 (BEAKER) (test code = 751) MEAN CORPUSCULAR HEMOGLOBIN CONC 31.9 GM/DL 32.2-35.5 L (BEAKER) (test code = 752) RED CELL DISTRIBUTION WIDTH 14.1 % 11.7-14.4 (BEAKER) (test code = 412) PLATELET COUNT (BEAKER) (test 207 K/CU MM 150-450 code = 756) MEAN PLATELET VOLUME (BEAKER) 10.7 fL 9.4-12.3 (test code = 754) NUCLEATED RED BLOOD CELLS 0 /100 WBC 0-0 (BEAKER) (test code = 413) NEUTROPHILS RELATIVE PERCENT 77 % (BEAKER) (test code = 429) LYMPHOCYTES RELATIVE PERCENT 15 % (BEAKER) (test code = 430) MONOCYTES RELATIVE PERCENT 6 % (BEAKER) (test code = 431) EOSINOPHILS RELATIVE PERCENT 1 % (BEAKER) (test code = 432) BASOPHILS RELATIVE PERCENT 1 % (BEAKER) (test code = 437) NEUTROPHILS ABSOLUTE COUNT 9.14 K/ L 1.56-6.13 H (BEAKER) (test code = 670) LYMPHOCYTES ABSOLUTE COUNT 1.78 K/ L 1.18-3.74 (BEAKER) (test code = 414) MONOCYTES ABSOLUTE COUNT (BEAKER) 0.72 K/ L 0.24-0.36 H (test code = 415) EOSINOPHILS ABSOLUTE COUNT 0.16 K/ L 0.04-0.36 (BEAKER) (test code = 416) BASOPHILS ABSOLUTE COUNT (BEAKER) 0.06 K/ L 0.01-0.08 (test code = 417) IMMATURE GRANULOCYTES-RELATIVE 1 % 0-1 PERCENT (BEAKER) (test code = 2801) PROTHROMBIN [id number] 11:22:00 Test Item Value Reference Range Interpretation Comments PROTIME (BEAKER) (test code = 15.7 seconds 11.7-14.7 H 759) INR (BEAKER) (test code = 370) 1.3 <=5.9 RECOMMENDED COUMADIN/WARFARIN INR THERAPY RANGESSTANDARD DOSE: 2.0 - 3.0 Includes: PROPHYLAXIS forvenous thrombosis, systemic embolization; TREATMENT for venous thrombosis and/or pulmonary embolus.HIGH RISK: Target INR is 2.5-3.5 for patients with mechanical heart valves.CALCIUM, [id number] 11:06:00 Test Item Value Reference Range Interpretation Comments CALCIUM IONIZED (BEAKER) (test 1.25 mmol/L 1.12-1.27 code = 698) PH, BLOOD (BEAKER) (test code = 7.37 1810) HEPATITIS C [id number] 15:18:00 Test Item Value Reference Range Interpretation Comments HEPATITIS C ANTIBODY (BEAKER) Nonreactive Nonreactive (test code = 367) HEPATITIS B [id number] 15:18:00 Test Item Value Reference Range Interpretation Comments HEPATITIS B CORE TOTAL ANTIBODY Nonreactive Nonreactive (BEAKER) (test code = 497) HEPATITIS B SURFACE ANTIBODY 63.1 mIU/mL <8.0 H (BEAKER) (test code = 647) HEPATITIS B SURFACE ANTIGEN (2) Nonreactive Nonreactive (BEAKER) (test code = 2585) HIV-1 ANTIGEN WITH HIV-1/2 [id number] 15:18:00 Test Item Value Reference Range Interpretation Comments HIV-1 ANTIGEN WITH HIV 1\T\2 Nonreactive Nonreactive ANTIBODY (2) (BEAKER) (test code = 2586) [id number] 15:08:00 Test Item Value Reference Range Interpretation Comments LIPASE (BEAKER) (test code = 749) 10 U/L 8-78 [id number] 15:08:00 Test Item Value Reference Range Interpretation Comments AMYLASE (BEAKER) (test code = 349) 40 U/L 25-125 BASIC METABOLIC [id number] 15:08:00 Test Item Value Reference Range Interpretation Comments SODIUM (BEAKER) 141 meq/L 136-145 (test code = 381) POTASSIUM (BEAKER) 3.6 meq/L 3.5-5.1 (test code = 379) CHLORIDE (BEAKER) 104 meq/L 98-107 (test code = 382) CO2 (BEAKER) (test 27 meq/L 22-29 code = 355) BLOOD UREA NITROGEN 12 mg/dL 7-21 (BEAKER) (test code = 354) CREATININE (BEAKER) 0.86 mg/dL 0.57-1.25 (test code = 358) GLUCOSE RANDOM 112 mg/dL 70-105 H (BEAKER) (test code = 652) CALCIUM (BEAKER) 9.8 mg/dL 8.4-10.2 (test code = 697) EGFR (BEAKER) (test 64 mL/min/1.73 ESTIMA DOMITILA GFR IS code = 1092) sq m NOT ACCURATE CREATININE CLEARANCE IN PREDICTING GLOMERULAR FILTRATION RATE . ESTIMATED GFR I S NOT APPLICABLE FOR DIALYSIS PATIEN TS. HEPATIC FUNCTION [id number] 15:08:00 Test Item Value Reference Range Interpretation Comments TOTAL PROTEIN (BEAKER) (test code = 7.1 gm/dL 6.0-8.3 770) ALBUMIN (BEAKER) (test code = 1145) 4.0 g/dL 3.5-5.0 BILIRUBIN TOTAL (BEAKER) (test code 0.4 mg/dL 0.2-1.2 = 377) BILIRUBIN DIRECT (BEAKER) (test 0.2 mg/dL 0.1-0.5 code = 706) ALKALINE PHOSPHATASE (BEAKER) (test 135 U/L 40-150 code = 346) AST (SGOT) (BEAKER) (test code = 22 U/L 5-34 353) ALT (SGPT) (BEAKER) (test code = 22 U/L 6-55 347) LACTATE DEHYDROGENASE (LDH)[id number] 15:08:00 Test Item Value Reference Range Interpretation Comments LACTATE DEHYDROGENASE (BEAKER) (test 238 U/L 125-220 H code = 635) [id number] 14:47:00 Test Item Value Reference Range Interpretation Comments PARTIAL THROMBOPLASTIN TIME 31.9 seconds 22.5-36.0 (BEAKER) (test code = 760) PROTHROMBIN [id number] 14:46:00 Test Item Value Reference Range Interpretation Comments PROTIME (BEAKER) (test code = 14.1 seconds 11.7-14.7 759) INR (BEAKER) (test code = 370) 1.1 <=5.9 RECOMMENDED COUMADIN/WARFARIN INR THERAPY RANGESSTANDARD DOSE: 2.0 - 3.0 Includes: PROPHYLAXIS forvenous thrombosis, systemic embolization; TREATMENT for venous thrombosis and/or pulmonary embolus.HIGH RISK: Target INR is 2.5-3.5 for patients with mechanical heart valves.RETICULOCYTE [id number] 14:36:00 Test Item Value Reference Range Interpretation Comments RETICULOCYTE COUNT PCT (BEAKER) (test 1.0 % 0.5-1.7 code = 575) CBC W/PLT COUNT & AUTO [id number] 14:36:00 Test Item Value Reference Range Interpretation Comments WHITE BLOOD CELL COUNT (BEAKER) 9.3 K/ L 3.5-10.5 (test code = 775) RED BLOOD CELL COUNT (BEAKER) 4.05 M/ L 3.93-5.22 (test code = 761) HEMOGLOBIN (BEAKER) (test code = 12.2 GM/DL 11.2-15.7 410) HEMATOCRIT (BEAKER) (test code = 37.2 % 34.1-44.9 411) MEAN CORPUSCULAR VOLUME (BEAKER) 91.9 fL 79.4-94.8 (test code = 753) MEAN CORPUSCULAR HEMOGLOBIN 30.1 pg 25.6-32.2 (BEAKER) (test code = 751) MEAN CORPUSCULAR HEMOGLOBIN CONC 32.8 GM/DL 32.2-35.5 (BEAKER) (test code = 752) RED CELL DISTRIBUTION WIDTH 14.2 % 11.7-14.4 (BEAKER) (test code = 412) PLATELET COUNT (BEAKER) (test 259 K/CU MM 150-450 code = 756) MEAN PLATELET VOLUME (BEAKER) 11.1 fL 9.4-12.3 (test code = 754) NUCLEATED RED BLOOD CELLS 0 /100 WBC 0-0 (BEAKER) (test code = 413) NEUTROPHILS RELATIVE PERCENT 70 % (BEAKER) (test code = 429) LYMPHOCYTES RELATIVE PERCENT 19 % (BEAKER) (test code = 430) MONOCYTES RELATIVE PERCENT 8 % (BEAKER) (test code = 431) EOSINOPHILS RELATIVE PERCENT 2 % (BEAKER) (test code = 432) BASOPHILS RELATIVE PERCENT 1 % (BEAKER) (test code = 437) NEUTROPHILS ABSOLUTE COUNT 6.49 K/ L 1.56-6.13 H (BEAKER) (test code = 670) LYMPHOCYTES ABSOLUTE COUNT 1.74 K/ L 1.18-3.74 (BEAKER) (test code = 414) MONOCYTES ABSOLUTE COUNT (BEAKER) 0.78 K/ L 0.24-0.36 H (test code = 415) EOSINOPHILS ABSOLUTE COUNT 0.14 K/ L 0.04-0.36 (BEAKER) (test code = 416) BASOPHILS ABSOLUTE COUNT (BEAKER) 0.07 K/ L 0.01-0.08 (test code = 417) IMMATURE GRANULOCYTES-RELATIVE 0 % 0-1 PERCENT (BEAKER) (test code = 2801) URINALYSIS W/ [id number] 14:25:00 Test Item Value Reference Range Interpretation Comments COLOR (BEAKER) (test code = 470) Yellow CLARITY (BEAKER) (test code = 469) Clear SPECIFIC GRAVITY UA (BEAKER) (test 1.010 1.001-1.035 code = 468) PH UA (BEAKER) (test code = 467) 6.5 5.0-8.0 PROTEIN UA (BEAKER) (test code = 20 mg/dL Negative A 464) GLUCOSE UA (BEAKER) (test code = Negative Negative 365) KETONES UA (BEAKER) (test code = Negative Negative 371) BILIRUBIN UA (BEAKER) (test code = Negative Negative 462) BLOOD UA (BEAKER) (test code = 461) Negative Negative NITRITE UA (BEAKER) (test code = Negative Negative 465) LEUKOCYTE ESTERASE UA (BEAKER) Negative Negative (test code = 466) UROBILINOGEN UA (BEAKER) (test code 0.2 mg/dL 0.2-1.0 = 463) RBC UA (BEAKER) (test code = 519) < /HPF WBC UA (BEAKER) (test code = 520) < /HPF MUCUS (BEAKER) (test code = 1574) Rare SQUAMOUS EPITHELIAL (BEAKER) (test < /HPF code = 516) HYALINE CASTS (BEAKER) (test code = 4 /LPF 514) SOURCE(BEAKER) (test code = 2795) RAD, CHEST, 2 [id number] 14:12:00Reason for exam:->surgeryFINAL REPORT Chest, two views HISTORY: Surgery COMPARISON: None. DISCUSSION: Lungs are clear without focal consolidation. Cardiomediastinal silhouette is unremarkable. Tortuosityand ectasia of the thoracic aorta. No acute osseous abnormality. No pleural effusion or pneumothorax. Visualized portions of the upper abdomen are unremarkable. IMPRESSION: No acute cardiopulmonary abnormality. Signed: Gera Hebert MDReport Verified Date/Time: 04/14/2018 14:12:09 Reading Location: [address] Radiology Reading Room 02:12 PM
--- NOTE | 2020-02-21 11:01 | RAD REPORT ---
EXAM DESCRIPTION: CT - Head Brain Wo Cont - 02/21/2020 10:36 am CLINICAL HISTORY: Alteration of awareness/confusion COMPARISON: November 2019 TECHNIQUE: Computed axial tomography of the head was obtained. IV contrast was not requested. All CT scans are performed using dose optimization technique as appropriate and may include automated exposure control or mA/KV adjustment according to patient size. FINDINGS: An intracranial bleed is not seen . The ventricles are normal in caliber. No extra-axial fluid collection is noted. 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 Fluid within the sinuses/ mastoids is not seen. IMPRESSION: No acute intracranial abnormality is seen. If patient's symptoms persist MRI of the bra in would be recommended.
[2020-02-21 11:06] LABS: Absolute Lymphocytes (CBC) 1.5 K/uL (0.7-4.9); Hematocrit 38.9 % (36.0-45.0); Lymphocytes % 17.1 % (15.3-44.8); RBC Red Blood Cell Count 4.74 M/uL (3.86-4.86)
[2020-02-21 11:07] LABS: Protime INR 0.98
[2020-02-21 11:25] LABS: ALT/SGPT 18 U/L (12-78); AST/SGOT 17 U/L (15-37); Albumin 3.7 g/dL (3.4-5.0); Alkaline Phosphatase 166 U/L (45-117); BUN Blood Urea Nitrogen 14 mg/dL (7-18); Bicarbonate 28 mmol/L (21-32); Bilirubin Direct < 0.1 mg/dL (0-0.2); Bilirubin Total 0.6 mg/dL (0.2-1.0); Glucose Level 123 mg/dL (74-106); Magnesium 2.3 mg/dL (1.8-2.4); NT PRO-BNP 1018 pg/mL (<450); Potassium 3.9 mmol/L (3.5-5.1); Protein, Total 7.9 g/dL (6.4-8.2); Sodium Level 141 mmol/L (136-145); Troponin (Emerg Dept Use Only) < 0.02 ng/mL (0.0-0.045)
--- NOTE | 2020-02-21 11:55 | RAD REPORT ---
EXAM DESCRIPTION: Essie Single View02/21/2020 11:45 am CLINICAL HISTORY: Chest pain COMPARISON: 2019 FINDINGS: The lungs appear clear of acute infiltrate. The heart is mildly enlarged. Aorta is tortuous/ectatic without significant change IMPRESSION: No acute abnormalities displayed
--- NOTE | 2020-02-21 14:03 | RAD REPORT ---
EXAM DESCRIPTION: MRI - Brain W/Wo Cont - 02/21/2020 1:42 pm CLINICAL HISTORY: DIZZINESSheadache, weakness, stroke-like symptoms, history of CVA August 2019 COMPARISON: MRA Head Wo Cont dated 02/21/2020; MRA Neck W/Wo Cont dated 02/21/2020; Head Brain Wo Cont d ated 02/21/2020 TECHNIQUE: Sagittal and axial T1-weighted images were obtained. Axial PD/heavily T2-weighted and T2- FLAIR images were obtained along with axial DWI/ADC mapping sequences. Coronal heavily T2 weighted s equence obtained. Axial and coronal post-contrast T1-weighted images were also obtained. A 13 ml Mul tihance contrast following utilized. FINDINGS: Diffusion-weighted imaging shows no hyperintense foci associated with an acute ischemic in jury. No intracranial hemorrhage is present. No mass, edema or shift of midline structures. Moderate atrophy and advanced chronic ischemic changes are present as a baseline. Ventricles are in proportion to the volume loss. Punctate hypointense signal foci in the right lentiform nucleus and left thalamus noted. Thalamus fin dings are hyperintense on ADC mapping with the pattern mixed in the right lentiform nucleus. These ar eas are hyperintense on T2/ proton density sequencing and hypointense on noncontrast T1 weighted imag ing. In the right-side of the racheal hypointense T1 foci present. There is corresponding hypointense T2 /IR sequencing and a blooming affect of this hypointense signal on the diffusion-weighted imaging. Po st-contrast view show no abnormal enhancement of the brain parenchyma or dura. The multiple areas of abnormal signal detailed above are believed to be the sequela of a prior CVA ev ent. Patient likely has hemosiderin deposition from the prior events. Mastoid air cells and paranasal sinuses are clear. No globe or orbital content abnormality identified. Vascular findings are detailed in separate MRA report. IMPRESSION: No acute infarction changes are present. No intracranial hemorrhage, mass, edema or othe r acute intracranial process. Patient has advanced atrophy and chronic ischemic changes with ventricles in proportion to volume los s. Brain parenchymal signal abnormalities detailed above are believed to be the sequela of prior ischemi c events.
--- NOTE | 2020-02-21 14:06 | RAD REPORT ---
EXAM DESCRIPTION: MRI - MRA Head Wo Cont - 02/21/2020 1:42 pm CLINICAL HISTORY: Weakness, dizziness, stroke-like symptoms COMPARISON: None. TECHNIQUE: Axial and coronal 3D [id number] image acquisition was performed. 3D rotational images were generated with source and reconstruction images reviewed. Horizontal and vertical axis rotation al views generated using MIP protocol. FINDINGS: No aneurysm or vascular malformation identified. No vasculitis findings seen. Vertebrobasilar vasculature is tortuous. Proximal most portion of the basilar artery is minimally ect atic. There is slightly bulbous appearance to the origin of the right superior cerebellar artery. Thi s is not believed to be an aneurysm. No dissection seen. Patient has significant atherosclerotic change causing substantial narrowing of the vessel lumen of b oth posterior cerebral arteries. Moderately severe atherosclerotic changes involve the peripheral bra nches of each middle cerebral artery. The right anterior cerebral artery A1 segment is absent or very atrophic as a variant. Both anterior cerebral arteries are supplied by the left carotid circulation. No significant anterior cerebral artery disease. Distal Internal carotid artery show moderately severe disease in each cavernous sinus. Disease is est imated at up to 50% on the right. IMPRESSION: Moderate severity middle cerebral artery atherosclerotic change with advanced bilateral posterior cerebral artery atherosclerotic disease. Estimated 50% stenosis in the cavernous portion of the right internal carotid artery. No aneurysm or vascular malformation identified.
--- NOTE | 2020-02-21 14:14 | RAD REPORT ---
EXAM DESCRIPTION: MRI - MRA Neck W/Wo Cont - 02/21/2020 1:42 pm CLINICAL HISTORY: Weakness, dizziness, stroke-like symptoms COMPARISON: MRA neck July 2012 TECHNIQUE: MR angiography of the cervical vasculature performed. Coronal imaging plane acquisition u tilized. A 13 MultiHance contrast volume was utilized. Coronal reformatted images were generated and reviewed. Vertical axis 3D rotational projections obtained using maximum intensity projection protoco l. FINDINGS: Aortic arch is 3 vessel configuration. The right proximal most subclavian artery show sign ificant stenosis between the origin of the right common carotid artery and origin of the right verteb ral artery. This may be a developmental variant. This was present in 2011. There is some minimal prog ression suspected. This does reduce substantially the diameter of the vessel. Right vertebral artery origin is unremarkable. No left common carotid artery origin stenosis. Left subclavian artery origin show 60% stenosis. Left vertebral artery origin shows no stenosis. Bilateral vertebral arteries are tortuous. No vertebral artery dissection, stenosis or significant fi nding noted. The right common carotid artery shows no acute finding. Right carotid bulb shows approximately 60-70% narrowing. The right internal carotid artery shows no significant disease. The left common carotid a rtery shows no significant change. There are mild atherosclerotic changes at the origin of the left c arotid bulb but no significant luminal narrowing seen. Remainder of the left internal carotid artery shows no significant finding. 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 This is dista l to the left subclavian artery origin. Dilatation of the aorta was present in 2012. This MRA neck ex amination is not adequate for full assessment. IMPRESSION: Approximately 60% stenosis at the origin of the left subclavian artery showing a minimal amount of progression since 2012. Significant stenosis at the right subclavian artery origin prior to the vertebral artery origin. This appears to have progressed slightly since prior imaging. Approximately 60- 70% stenosis suspected at the right carotid bulb. Aneurysmal dilatation of the aortic arch distal to the left subclavian artery origin to approximately 4.3 cm. This is not new from 2012. Neither the current or prior examination adequately images the ao rta.
--- NOTE | 2020-02-21 15:08 | EDPHYS ---
Physician Documentation [facility] Name: Syl Sheikh Age: 79 yrs Sex: Female : 1940 Arrival Date: 02/21/2020 Time: 09:36 Bed 19 Private MD: Wally Soliman Physician Rolando Casillas HPI: 02/20 10:19 This 79 yrs old Female presents to ER via Ambulatory with complaints of High kdr Blood Pressure. 10:19 The patient has multiple c/o including chest pain, mild speech difficulty and tingling kdr to her left hand . Onset: The symptoms/episode began/occurred gradually, at an unknown time. Awoke this morning with the signs mentioned. Severity of symptoms: At their worst the symptoms were mild in the emergency department the symptoms are unchanged. The patient has not experienced similar symptoms in the past. The patient has not recently seen a physician. Historical: - Allergies: 10:01 butorphanol tartrate; sv 10:01 Codeine; sv 10:01 Hydrocodone-Acetaminophen; sv 10:01 Lisinopril; sv 10:01 Stadol; sv 10:01 statin drugs; sv - PMHx: 10:01 abdominal aortic aneurysm; CVA; Diabetes - NIDDM; GERD; Hypertension; TIA; sv - Immunization history:: Adult Immunizations up to date. - Social history:: Smoking status: Patient denies any tobacco usage or history of. ROS: 10:19 Constitutional: Negative for fever, chills, and weight loss, Eyes: Negative for injury, kdr pain, redness, and discharge, Neck: Negative for injury, pain, and swelling, Abdomen/GI: Negative for abdominal pain, nausea, vomiting, diarrhea, and constipation, Back: Negative for injury and pain, : Negative for injury, bleeding, discharge, and swelling, MS/Extremity: Negative for injury and deformity, Skin: Negative for injury, rash, and discoloration, Psych: Negative for depression, anxiety, suicide ideation, homicidal ideation, and hallucinations, Allergy/Immunology: Negative for hives, rash, and allergies, Endocrine: Negative for neck swelling, polydipsia, polyuria, polyphagia, and marked weight changes, Hematologic/Lymphatic: Negative for swollen nodes, abnormal bleeding, and unusual bruising. 10:19 Cardiovascular: Positive for chest pain, of the anterior aspect of left upper chest, Negative for edema, orthopnea, palpitations, paroxysmal nocturnal dyspnea. 10:19 Respiratory: Positive for cough, with no reported sputum, Negative for hemoptysis, orthopnea, pleurisy, shortness of breath, sputum production, wheezing. 10:19 Neuro: Positive for speech changes, tingling, Negative for altered mental status, dizziness, gait disturbance, headache, hearing loss, loss of consciousness, numbness, seizure activity, syncope, near syncope, tinnitus, tremor, visual changes, weakness. Exam: 10:19 Constitutional: This is a well developed, well nourished patient who is awake, alert, kdr and in no acute distress. Head/Face: Normocephalic, atraumatic. Eyes: Pupils equal round and reactive to light, extra-ocular motions intact. Lids and lashes normal. Conjunctiva and sclera are non-icteric and not injected. Cornea within normal limits. Periorbital areas with no swelling, redness, or edema. Neck: Trachea midline, no thyromegaly or masses palpated, and no cervical lymphadenopathy. Supple, full range of motion without nuchal rigidity, or vertebral point tenderness. No Meningismus. Chest/axilla: Normal chest wall appearance and motion. Nontender with no deformity. No lesions are appreciated. Cardiovascular: Regular rate and rhythm with a normal S1 and S2. No gallops, murmurs, or rubs. Normal PMI, no JVD. No pulse deficits. Respiratory: Lungs have equal breath sounds bilaterally, clear to auscultation and percussion. No rales, rhonchi or wheezes noted. No increased work of breathing, no retractions or nasal flaring. Abdomen/GI: Soft, non-tender, with normal bowel sounds. No distension or tympany. No guarding or rebound. No evidence of tenderness throughout. Back: No spinal tenderness. No costovertebral tenderness. Full range of motion. Skin: Warm, dry with normal turgor. Normal color with no rashes, no lesions, and no evidence of cellulitis. MS/ Extremity: Pulses equal, no cyanosis. Neurovascular intact. Full, normal range of motion. Neuro: Awake and alert, GCS 15, oriented to person, place, time, and situation. Cranial nerves II-XII grossly intact. Motor strength 5/5 in all extremities. Sensory grossly intact. Cerebellar exam normal. Normal gait. Psych: Awake, alert, with orientation to person, place and time. Behavior, mood, and affect are within normal limits. Vital Signs: 09:59 BP 178 / 98; Pulse 73; Resp 16; Temp 98.3; sv 10:03 BP 160 / 100; Pulse 72; Resp 16 S; Pulse Ox 97% on R/A; ca1 11:02 BP 168 / 103; Pulse 71; Resp 16 S; Pulse Ox 96% on R/A; ca1 12:00 BP 165 / 96; Pulse 75; Resp 16 S; Pulse Ox 97% on R/A; ca1 12:39 BP 157 / 93; Pulse 76; Resp 15 S; Pulse Ox 96% on R/A; ca1 14:06 BP 175 / 97; Pulse 72; Resp 16 S; Pulse Ox 96% on R/A; ca1 14:49 BP 193 / 85; Pulse 66; Resp 17 S; Pulse Ox 97% on R/A; ca1 15:19 BP 180 / 90; Pulse 73; Resp 16 S; Pulse Ox 97% on R/A; ca1 16:03 BP 176 / 93; Pulse 76; Resp 16 S; Pulse Ox 98% on R/A; ca1 16:22 BP 179 / 80; Pulse 74; Resp 16 S; Pulse Ox 98% on R/A; ca1 17:13 BP 160 / 104; Pulse 71; Resp 15 S; Pulse Ox 98% on R/A; ca1 MDM: 10:19 Data reviewed: vital signs, nurses notes, lab test result(s), EKG, radiologic studies. kdr Counseling: I had a detailed discussion with the patient and/or guardian regarding: the historical points, exam findings, and any diagnostic results supporting the discharge/admit diagnosis, lab results, radiology results. 15:07 Patient medically screened. kdr 02/20 10:17 Order name: Basic Metabolic Panel; Complete Time: 11:41 kdr 02/20 10:17 Order name: CBC with Diff; Complete Time: 11:41 kdr 02/20 10:17 Order name: LFT's; Complete Time: 11:41 kdr 02/20 10:17 Order name: Magnesium; Complete Time: 11:41 kdr 02/20 10:17 Order name: NT PRO-BNP; Complete Time: 11:41 kdr 02/20 10:17 Order name: PT-INR; Complete Time: 11:41 kdr 02/20 10:17 Order name: Troponin (emerg Dept Use Only); Complete Time: 11:41 kdr 02/20 10:17 Order name: XRAY Chest (1 view); Complete Time: 13:15 kdr 02/20 10:17 Order name: CT Head Brain wo Cont; Complete Time: 11:41 kdr 02/20 11:43 Order name: Troponin (emerg Dept Use Only); Complete Time: 15:05 kdr 02/20 15:49 Order name: Basic Metabolic Panel EDMS 02/20 15:49 Order name: Basic Metabolic Panel EDMS 02/20 15:49 Order name: CBC with Automated Diff EDMS 02/20 15:49 Order name: CBC with Automated Diff EDMS 02/20 10:17 Order name: EKG; Complete Time: 10:18 kdr 02/20 10:17 Order name: Cardiac monitoring; Complete Time: 10:57 kdr 02/20 10:17 Order name: EKG - Nurse/Tech; Complete Time: 11:09 kdr 02/20 10:17 Order name: IV Saline Lock; Complete Time: 10:57 kdr 02/20 10:17 Order name: Labs collected and sent; Complete Time: 10:57 kdr 02/20 10:17 Order name: O2 Per Protocol; Complete Time: 10:57 kdr 02/20 10:17 Order name: O2 Sat Monitoring; Complete Time: 10:57 kdr 02/20 13:19 Order name: MRA Head Wo Cont; Complete Time: 15:05 EDMS 02/20 13:20 Order name: MRA Neck W/Wo Cont; Complete Time: 15:05 EDMS 02/20 13:20 Order name: Brain W/Wo Cont; Complete Time: 15:05 EDMS 02/20 15:49 Order name: Regular EDMS Administered Medications: 15:18 Not Given (Pt states, "I got a clonidine 0.2 patch that I put on this morning". ca1 Provider notified, VO to hold off on clonidine PO ordered): cloNIDine 0.2 mg PO once 16:02 Not Given (Patient Refused; states, "I had Xanax before MRI"): Ativan 0.5 mg PO once ca1 Disposition: 02/21/20 15:41 Hospitalization ordered by Wally Soliman for Observation. Preliminary diagnosis are Hypertensive heart disease, Malaise and fatigue, Weakness. - Bed requested for Telemetry/MedSurg (observation). - Status is Observation. sv - Condition is Stable. - Problem is an acute exacerbation. - Symptoms are resolved. Signatures: Dispatcher [employer] EDCO Charis Dwyer Edie Whitney, RN RN Rolando Schwarz MD MD kdr Zen, Dee Dee RN RN ca1 Corrections: (The following items were deleted from the chart) 13:19 11:44 MR STROKE PROTOCOL+MRI.RAD.BRZ ordered. EDCO EDCO 15:40 15:07 02/21/2020 15:07 Discharged to Home. Impression: Hypertensive heart disease. kdr Condition is Stable. Forms are Medication Reconciliation Form, Thank You Letter, Antibiotic Education, Prescription Opioid Use. Follow up: Wally Soliman; When: 2 - 3 days; Reason: If symptoms return, Further diagnostic work-up, Recheck today's complaints, Continuance of care, Re-evaluation by your physician. kdr 16:18 15:41 Hospitalization Ordered by Wally Soliman MD for Observation. Preliminary bd diagnosis is Hypertensive heart disease; Malaise and fatigue; Weakness. Bed requested for Telemetry/MedSurg (observation). Status is Observation. Condition is Stable. Problem is an acute exacerbation. Symptoms are resolved. kdr 17:35 16:18 02/21/2020 15:41 Hospitalization Ordered by Wally Soliman MD for Observation. sv Preliminary diagnosis is Hypertensive heart disease; Malaise and fatigue; Weakness. Bed requested for Telemetry/MedSurg (observation). Status is Observation. Condition is Stable. Problem is an acute exacerbation. Symptoms are resolved. bd
--- NOTE | 2020-02-21 15:08 | ER ---
Nurse's Notes [facility] Name: Syl Sheikh Age: 79 yrs Sex: Female : 1940 Arrival Date: 02/21/2020 Time: 09:36 Bed 19 Private MD: Wally Soliman Diagnosis: Hypertensive heart disease;Malaise and fatigue;Weakness Presentation: 02/20 09:59 Chief complaint: Patient states: generalized weakness x 1 week but has been increasing. sv HTN since today. c/o fingers tingling. Pt stated that she just changed her Clonidine patch today because it was due. Coronavirus screen: Proceed with normal triage. Patient denies a cough. Patient denies shortness of breath or difficulty breathing. Patient denies measured and/or subjective temperature greater than 100.4F prior to today's visit. Patient denies travel on a cruise ship or to a country the [facility] currently lists as an affected area. Patient denies contact with known and/or suspected case of COVID-19. Ebola Screen: No symptoms or risks identified at this time. Initial Sepsis Screen: Does the patient meet any 2 criteria? No. Patient's initial sepsis screen is negative. Does the patient have a suspected source of infection? No. Patient's initial sepsis screen is negative. Risk Assessment: Do you want to hurt yourself or someone else? Patient reports no desire to harm self or others. Onset of symptoms was February 14, 2020. 09:59 Method Of Arrival: Ambulatory sv 09:59 Acuity: MP 2 sv Historical: - Allergies: 10:01 butorphanol tartrate; sv 10:01 Codeine; sv 10:01 Hydrocodone-Acetaminophen; sv 10:01 Lisinopril; sv 10:01 Stadol; sv 10:01 statin drugs; sv - PMHx: 10:01 abdominal aortic aneurysm; CVA; Diabetes - NIDDM; GERD; Hypertension; TIA; sv - Immunization history:: Adult Immunizations up to date. - Social history:: Smoking status: Patient denies any tobacco usage or history of. Screenin:03 Abuse screen: Denies threats or abuse. Denies injuries from another. Nutritional ca1 screening: No deficits noted. Tuberculosis screening: No symptoms or risk factors identified. Fall Risk IV access (20 points). Assessment: 10:00 General: Appears in no apparent distress. comfortable, Behavior is calm, cooperative, ca1 appropriate for age. Pain: Complains of pain in anterior aspect of left upper chest Pain does not radiate. Quality of pain is described as pressure, Pain began a week. Neuro: Level of Consciousness is awake, alert, obeys commands, Oriented to person, place, time, situation, Appropriate for age. Cardiovascular: Heart tones S1 S2 present Capillary refill < 3 seconds Patient's skin is warm and dry. Rhythm is atrial fibrillation. Respiratory: Airway is patent Respiratory effort is even, unlabored, Respiratory pattern is regular, symmetrical, Breath sounds are clear bilaterally. GI: Abdomen is flat, non-distended, Bowel sounds present X 4 quads. Abd is soft and non tender X 4 quads. : No signs and/or symptoms were reported regarding the genitourinary system. EENT: No signs and/or symptoms were reported regarding the EENT system. Derm: Skin is intact, is healthy with good turgor, Skin is pink, warm \\T\\ dry. Musculoskeletal: Circulation, motion, and sensation intact. Capillary refill < 3 seconds. 11:09 Reassessment: Patient appears in no apparent distress at this time. Patient and/or ca1 family updated on plan of care and expected duration. Pain level reassessed. Patient is alert, oriented x 3, equal unlabored respirations, skin warm/dry/pink. 12:03 Reassessment: Patient appears in no apparent distress at this time. Patient and/or ca1 family updated on plan of care and expected duration. Pain level reassessed. Patient is alert, oriented x 3, equal unlabored respirations, skin warm/dry/pink. 12:40 Reassessment: Pt asked if she could take Xanax for anxiety prior to going to MRI. Pt ca1 takes Xanax 0.5 mg 1/[address] Casillas. VO okay. Pt took 1/2 tab Xanax 0.5 mg from home meds brought to ER. 12:44 Reassessment: Pt to MRI. ca1 14:06 Reassessment: Patient appears in no apparent distress at this time. Patient and/or ca1 family updated on plan of care and expected duration. Pain level reassessed. Patient is alert, oriented x 3, equal unlabored respirations, skin warm/dry/pink. 14:41 Reassessment: Patient appears in no apparent distress at this time. Patient and/or ca1 family updated on plan of care and expected duration. Pain level reassessed. Patient is alert, oriented x 3, equal unlabored respirations, skin warm/dry/pink. 15:45 Reassessment: Patient appears in no apparent distress at this time. Patient and/or ca1 family updated on plan of care and expected duration. Pain level reassessed. Patient is alert, oriented x 3, equal unlabored respirations, skin warm/dry/pink. 16:20 Reassessment: Patient appears in no apparent distress at this time. Patient is alert, ca1 oriented x 3, equal unlabored respirations, skin warm/dry/pink. Called for report. Nurse will call back. 17:12 Reassessment: Patient appears in no apparent distress at this time. Patient is alert, ca1 oriented x 3, equal unlabored respirations, skin warm/dry/pink. Called for report. Nurse will call back. Vital Signs: 09:59 BP 178 / 98; Pulse 73; Resp 16; Temp 98.3; sv 10:03 BP 160 / 100; Pulse 72; Resp 16 S; Pulse Ox 97% on R/A; ca1 11:02 BP 168 / 103; Pulse 71; Resp 16 S; Pulse Ox 96% on R/A; ca1 12:00 BP 165 / 96; Pulse 75; Resp 16 S; Pulse Ox 97% on R/A; ca1 12:39 BP 157 / 93; Pulse 76; Resp 15 S; Pulse Ox 96% on R/A; ca1 14:06 BP 175 / 97; Pulse 72; Resp 16 S; Pulse Ox 96% on R/A; ca1 14:49 BP 193 / 85; Pulse 66; Resp 17 S; Pulse Ox 97% on R/A; ca1 15:19 BP 180 / 90; Pulse 73; Resp 16 S; Pulse Ox 97% on R/A; ca1 16:03 BP 176 / 93; Pulse 76; Resp 16 S; Pulse Ox 98% on R/A; ca1 16:22 BP 179 / 80; Pulse 74; Resp 16 S; Pulse Ox 98% on R/A; ca1 17:13 BP 160 / 104; Pulse 71; Resp 15 S; Pulse Ox 98% on R/A; ca1 ED Course: 09:36 Patient arrived in ED. ag5 09:36 Wally Soliman MD is Private Physician. ag5 09:49 Rolando Casillas MD is Attending Physician. kdr 10:00 Arm band placed on. ca1 10:01 Triage completed. sv 10:02 Dee Dee Zaldivar, MIRIAM is Primary Nurse. ca1 10:03 Patient has correct armband on for positive identification. Bed in low position. Call ca1 light in reach. Side rails up X 1. Pulse ox on. NIBP on. Warm blanket given. 10:37 CT Head Brain wo Cont In Process Unspecified. EDMS 10:57 No provider procedures requiring assistance completed. Initial lab(s) drawn, by de, ca1 sent to lab. Inserted saline lock: 22 gauge in right antecubital area, using aseptic technique. Blood collected. 11:45 XRAY Chest (1 view) In Process Unspecified. EDMS 13:41 MRA Head Wo Cont In Process Unspecified. EDMS 13:41 MRA Neck W/Wo Cont In Process Unspecified. EDMS 13:41 Brain W/Wo Cont In Process Unspecified. EDMS 15:07 Wally Soliman MD is Referral Physician. kdr 15:40 Wally Soliman MD is Hospitalizing Provider. kdr 17:33 Patient admitted, IV remains in place. ca1 Administered Medications: 15:18 Not Given (Pt states, "I got a clonidine 0.2 patch that I put on this morning". ca1 Provider notified, VO to hold off on clonidine PO ordered): cloNIDine 0.2 mg PO once 16:02 Not Given (Patient Refused; states, "I had Xanax before MRI"): Ativan 0.5 mg PO once ca1 Outcome: 15:07 Discharge ordered by . kdr 15:41 Decision to Hospitalize by Provider. kdr 17:30 Admitted to Tele accompanied by tech, via wheelchair, room 207, with chart, Report sv called to Domingo PINEDA 17:30 Condition: stable 17:30 Instructed on the need for admit. 17:35 Patient left the ED. sv Signatures: Dispatcher [employer] Edie Quiroz RN RN sv Rittger, Kevin, MD MD kdr Zach Julien em1 Dee Dee Zaldivar RN RN ca1 Awilda Mirza ag5 Corrections: (The following items were deleted from the chart) 11:09 10:00 Pain: Complains of pain in anterior aspect of left upper chest Pain does not ca1 radiate. Quality of pain is described as pressure, ca1 11:24 10:00 Cardiovascular: Heart tones S1 S2 present Capillary refill < 3 seconds Patient's ca1 skin is warm and dry. ca1 16:03 15:39 BP 176 / 93; em1 ca1
[2020-02-21] MEDS ORDERED: cloNIDine HCL 0.1 MG TAB ONE (15:19)
[2020-02-21] MEDS ORDERED: ONDANSETRON 4 MG/2 ML VIAL IV PRN (15:44)
[2020-02-21] MEDS ORDERED: ACETAMINOPHEN 500 MG TAB PO PRN (15:44)
--- NOTE | 2020-02-21 16:28 | EKG ---
Test Date: 2020-02-21 Test Time: 11:06:07 Benefits Manager: [facility]ONT MEASUREMENT RESULTS: Intervals: Rate: 71 LA: 206 QRSD: 78 QT: 422 QTc: 458 [place]: P: 65 LA: 206 QRS: -11 T: 74 INTERPRETIVE STATEMENTS: Sinus rhythm with premature atrial complexes Left ventricular hypertrophy with repolarization abnormality Inferior infarct, age undetermined Abnormal ECG Compared to ECG 09/08/2019 00:07:45 Atrial premature complex(es) now present Left ventricular hypertrophy now present Early repolarization now present Myocardial infarct finding now present Electronically Signed On 02-21-20 16:27:24 CDT by Nadeem Swenson
[2020-02-21 18:49] VITALS: BMI 20.1
[2020-02-21] MEDS: D5 0.45 NS 1,000 ML IV SCH (20:19)
[2020-02-21] MEDS: METOPROLOL TAR 50 MG TAB PO SCH (21:00)
[2020-02-21] MEDS ORDERED: cloNIDine HCL 0.1 MG TAB PO PRN (22:43)
[2020-02-21] MEDS ORDERED: ALPRAZOLAM 0.25 MG TABLET PO PRN (22:51)
[2020-02-21 23:03] LABS: Urine Appearance CLEAR; Urine Bilirubin NEGATIVE (NEG); Urine Blood TRACE (NEG); Urine Color YELLOW; Urine Glucose NEGATIVE (NEG); Urine Protein 1+ (NEG); Urine Urobilinogen 0.2 mg/dL (0.2-1.0)
[2020-02-21 23:14] LABS: Urine Microscopic Reflex ORDER UMIC
[2020-02-22 00:10] LABS: Urine Amorphous Sediment 1+ /HPF (NONE SEEN); Urine Bacteria <20 /HPF (<20); Urine Culture Reflex Order NOT NEEDED; Urine RBC <5 /HPF (NONE SEEN)
[2020-02-22] MEDS: D5 0.45 NS 1,000 ML IV SCH ×3 (05:20→18:40)
[2020-02-22 05:47] LABS: Absolute Lymphocytes (CBC) 2.1 K/uL (0.7-4.9); Basophils % 0.8 % (0-1.3); Hematocrit 36.1 % (36.0-45.0); Lymphocytes % 25.9 % (15.3-44.8); RBC Red Blood Cell Count 4.37 M/uL (3.86-4.86)
[2020-02-22 06:00] LABS: Potassium 3.8 mmol/L (3.5-5.1)
[2020-02-22] MEDS: AMLODIPINE 2.5 MG TAB PO SCH (08:05)
[2020-02-22] MEDS: ASPIRIN 81 MG CHEWABLE TABLET PO SCH (08:06)
[2020-02-22] MEDS ORDERED: PNEUMOCOCCAL VACCINE 0.5 ML IMVAC ONE (10:00)
[2020-02-22] MEDS ORDERED: PARoxetine HCL 10 MG TAB PO ONE (15:37)
[2020-02-22 20:54] VITALS: O2SAT 97
[2020-02-22] MEDS: METOPROLOL TAR 50 MG TAB PO SCH (21:09)
--- NOTE | 2020-02-23 00:28 | CON ---
Date of Consultation: 02/22/2020 Reason: Abnormal MRI. History: 79-year-old lady who came to the emergency department with complaints of chest discomfort a nd left arm and hand numbness. She has had a prior pontine hemorrhage that presented primarily with left arm numbness and weakness in the hand just never really got back to 100% when she had the hemorr марина that was treated up in [place]. Repeat MR in November of this year demonstrated pontine hemorrhage resolved and chronic ischemic changes throughout. So as part of this workup, she had repeat imaging appropriately given the complaints of left hand and arm numbness. Blood pressure in the emergency d epartment was 160 to 180 systolic. Those studies have been reviewed not only in the reports, but the actual images have been reviewed. She has a very similar brain MRI as before demonstrating no acute stroke. There is the hypodensity T1 right side of the racheal, hyperintensity in the thalamus and lent iform nuclei and significant chronic ischemic change throughout. Patient has a very ectatic vertebro basilar system with actual gross indentation of the racheal by the basilar artery on imaging with intrac ranial atherosclerosis throughout. She is allergic to statins. She is on aspirin, given the imaging abnormalities. Consultation was requested. Past Medical History: Hypertension, prior cerebral hemorrhage, prior abdominal aortic aneurysm, diab etes. Allergies: STADOL, CODEINE, HYDROCODONE, LISINOPRIL, AND STATINS. Social History: Nonsmoker. Normally independent with basic activities of daily living. Family History: Noncontributory. Medications: Normally Ozempic, aspirin, clonidine, Norvasc, Lopressor, Paxil, Protonix, and Xanax. Review of Systems: General: Chronically ill. Eyes: Negative. Ears, Nose, and Throat: No dysarthria. Cardiovascular: Hypertension. Pulmonary: Denies. GI: Negative. : Negative. Musculoskeletal: Neck discomfort. Neurologic: As noted. Psychiatric: Anxiety. Endocrine: History of diabetes. Physical Examination: Vital Signs: 97.2, 77, 16, 160/90. General: She is a pleasant lady sitting in bed, in no distress. Neurologic: Mild anisocoria but pupils reactive. Ocular motion full. Visual rush full. Facial s trength and sensation normal. Tongue protrudes evenly. Soft palate elevates symmetrically bilateral ly. Extremity strength full. Sensation decreased to light touch, left hand versus right. Reflexes 2 /4. Toes are downgoing. Cerebellar exam demonstrates no ataxia. Mild cervical paraspinous tightnes s. Impression: Prior pontine hemorrhage, ischemic vascular disease. Plan: Continue aspirin. There is no evidence of a new stroke. Ideally, she would be able to takes some type of statin, but she is allergic. I think it will be reasonable to at least check her lipids in the morning and check a plain film of the cervical spine long-term. Better control of her blood pressure. There is really not any highly convincing evidence for something like amyloid angiopathy a s opposed to just advanced atherosclerosis on imaging. Thank you for the consult. We will continue to follow with you. GABBI Voice ID: [id number] Report ID: [id number]
[2020-02-23] MEDS: D5 0.45 NS 1,000 ML IV SCH ×2 (01:25→08:00)
[2020-02-23] MEDS: ASPIRIN 81 MG CHEWABLE TABLET PO SCH (08:10)
[2020-02-23] MEDS: AMLODIPINE 2.5 MG TAB PO SCH (08:10)
--- NOTE | 2020-02-23 08:36 | RAD REPORT ---
EXAM DESCRIPTION: RAD - C Spine Ap/Lat - 02/23/2020 6:24 am CLINICAL HISTORY: neck pain COMPARISON: No comparisons FINDINGS: Cervical bodies are normal in height and alignment.No fracture or acute bony process seen. Moderate degenerative changes present involving C4-5, C5-6 and C6-7 with disc thinning and posterior osteophyte. No prevertebral soft tissue thickening or other suspicious soft tissue finding. IMPRESSION: Moderate midcervical spondylosis.
[2020-02-23 12:21] VITALS: TEMP 97.2
[2020-02-23] MEDS ORDERED: PARoxetine HCL 10 MG TAB PO ONE (16:00)
[2020-02-23 16:32] VITALS: BP 136/70
--- NOTE | 2020-02-25 15:22 | HP ---
Date of Admission: 02/21/2020 Entrance Complaint: Chest discomfort and left arm and hand tingling. History Of Present Illness: The patient has had multiple episodes over the past few years, somewhat similar symptoms. She had a pontine area stroke approximately 6 to 7 months ago. Had been doing jack rly well since then, although she has certain symptomatology related to the vertigo and her hand and arm not infrequently. Also has chest pain. She has been under considerable anxiety. EKGs, cardiac workup have basically been negative. MRIs of the head have been done as well, which showed some chron ic ischemic changes. Also has a history of variable blood pressure, which she has difficulty control ling, often related to the stress system. In any event since these symptoms seem to be more prominen t, we decided to admit her. Past History: As above, CVA, hypertension, repaired AAA, NIDDM controlled on diet. Social History: Nonsmoker. Family History: Noncontributory. Physical Examination: General: The patient is an elderly female, somewhat anxious, in no acute distress. Vital Signs: Slightly elevated blood pressure. Head and Neck: Normocephalic. Pupils equal and reactive to light and accommodation. Fundi negative. Trachea midline. Thyroid not palpable. ENT: Negative. Chest: Clear to P and A. Cardiovascular: PMI in midclavicular line. Heart sounds normal. Peripheral pulses present and equa l bilaterally. Abdomen: No organomegaly. Bowel sounds present. Extremities: Good tone and movement bilaterally. Questionable loss of sensation in the left lower e xtremity with good tone and movement. Reflexes physiologic. Rectal: Deferred. Pelvic: Deferred. Impression: Transient ischemic attack, hypertension labile, generalized anxiety disorder, non-insuli n-dependent diabetes mellitus good control. Plan: Patient will be admitted. Neurological evaluation will be accomplished. She also seen by her neurologist. Neuro signs will be taken. Continue on her aspirin. However, she cannot tolerate lipi ds and there is a limited apparently as how much Paxil she can take as well as she states that result ed in a marked hypertensive reaction. Depending on the workup for the neurological system and the ne urologist's evaluation, she should be able to be discharged in a day or two. HR/MODL Voice ID: [id number]
--- NOTE | 2020-02-26 15:48 | PN ---
Patient seems somewhat better today. She stayed on her 10 mg of Paxil rather than 20 as she said the last time she tried it, she became hypertensive. Vital signs are basically stable. Her mental stat us has improved. Discussion was held as far as physical therapy at home. She has had that up until the past couple of weeks and whether from an insurance issue or otherwise it was discontinued. This will be evaluated next week. She will continue on rest of her medications. HR/MODL Voice ID: [id number] Report ID: [id number]
--- NOTE | 2020-03-24 17:19 | PN ---
Hospital Course: The patient was admitted to the hospital on 02/20, after presenting to the emergenc y room complaining of chest discomfort with some left arm and hand numbness. She was found to have a markedly elevated blood pressure. This was treated in the ER and was decided to admit her for obser vation due to the problems in the past that she has had with multiple vascular problems including CVA , TIA, and hypertension. When she was admitted, her blood pressure stabilized. Her mental status im proved considerably until where she was back at baseline. There was no evidence of any cardiac disea se. She was seen by the neurologist who felt the possibility of being a vascular insult, probable TI A was likely. During her hospital stay, her paresthesias improved as did her chest discomfort. She was continued on her aspirin. She cannot take statins. Her blood pressure as mentioned stabilized a nd she felt well enough to be discharged home in fair condition to continue home health for physical therapy on 02/22. 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 HR/MODL Voice ID: [id number] Report ID: [id number]
== END 2020-02-23 16:27 | disposition home or self-care (01) ==
LOC: ER 09:34 → ERHOLD 15:48 → 2ND 17:31
PROVIDERS: ADMIT Family Medicine; ATTEND Family Medicine
DX: G45.9 Transient cerebral ischemic attack, unspecified (principal); I99.8 Other disorder of circulatory system; I67.2 Cerebral atherosclerosis; I70.8 Atherosclerosis of other arteries; I11.9 Hypertensive heart disease without heart failure; I49.1 Atrial premature depolarization; R94.31 Abnormal electrocardiogram [ECG] [EKG]; M47.812 Spondylosis without myelopathy or radiculopathy, cervical region; F41.1 Generalized anxiety disorder; Z11.59 Encounter for screening for other viral diseases; E11.9 Type 2 diabetes mellitus without complications; Z79.82 Long term (current) use of aspirin; Z79.899 Other long term (current) drug therapy; Z86.73 Personal history of transient ischemic attack (TIA), and cerebral infarction without residual deficits
CPT/HCPCS: 36415; 70450; 70544; 70549; 70553; 71045; 72040; 80048; 80061; 80076; 81003; 81015; 82947; 83735; 83880; 84484; 85025; 85610; 93005; 99285; A9577; G0378; J7799; U0002

== ENCOUNTER 2020-05-27 10:28 | Emergency (ER) | payer OTHER ==
--- OUTSIDE RECORDS SUMMARY | 2020-05-27 10:30 | XMS REPORT | Clinical Summary ---
:1940 Author Organization [facility] Address [address] [place] [address] Care Team Providers Name Role Phone MD Jourdan Primary Care Provider Paul Sánchez Unavailable Allergies Active Allergy Reactions Severity Noted Date Comments Codeine Other (See Comments) 09/08/2019 dizzine ss Hydrocodone-Acetaminophen Other (See Comments) 018 hyperactivity Lisinopril 04/13/2018 angioedema Butorphanol Tartrate Other (See Comments) 04/14/2018 Hallucinations Ykfuvdv-Gst-Cvl Reductase Other (See Comments) 018 Flu like [...] aortic aneurysm MD Randall 09/08/2019 Travel after 05/27/2019 Social History Tobacco Use Types Packs/Day Years [...] Taken Blood Pressure 178/89 09/13/2019 7:40 AM ATHLETIC DIRECTOR Pulse 78 09/13/2019 7:40 AM ATHLETIC DIRECTOR Temperature 35.8 C (96.4 F) 09/13/2019 7:40 AM ATHLETIC DIRECTOR Respiratory Rate 18 09/13/2019 10:29 AM ATHLETIC DIRECTOR Oxygen Saturation 94% 09/13/2019 7:40 AM ATHLETIC DIRECTOR Inhaled Oxygen Concentration 21% 09/11/2019 8:05 PM ATHLETIC DIRECTOR Weight 42.2 kg (93 lb 0.6 oz) 09/08/2019 4:15 AM ATHLETIC DIRECTOR Height 167.6 cm (5' 6") 09/08/2019 4:15 AM ATHLETIC DIRECTOR Body Mass Index 15.02 09/08/2019 4:15 AM ATHLETIC DIRECTOR Plan of Treatment Not on file Implants Implanted Type Area Youth Development Professional Device Shelf Model / Identifier Expiration Serial / Date Lot Zbigniew Iliac Aaa Leg 13x90 [id number] - [id number] CV Aneurysm Right: CO OK:AORTIC 10/13/2020 [id number] / Implanted: Qty: 1 on 04/15/2018 by Arnaldo Avelar MD Groin INTERVENTION / [id number] Closure Sys Perclose Progl 6fr 35519-29 - [id number] Cardiovascular Left: WANG 11/18/2019 [id number] / Implanted: Qty: 1 on 04/15/2018 by Arnaldo Avelar MD Groin LAB:VASC DEV / [id number] Closure Sys Perclose Progl 6fr 21833-67 - [id number] Cardiovascular Left: WANG 01/18/2020 24116-37 / Implanted: Qty: 1 on 04/15/2018 by Arnaldo Avelar MD Groin LAB:VASC DEV / [id number] Closure Sys Perclose Progl 6fr 65660-11 - [id number] Cardiovascul ar Right: WANG 11/18/2019 [id number] / Implanted: Qty: 1 on 04/15/2018 by Arnaldo Avelar MD Groin LAB:VASC DEV / [id number] Closure Sys Perclose Progl 6fr 25019-81 - [id number] Cardiovascul ar Right: WANG 11/18/2019 [id number] / Implanted: Qty: 1 on 04/15/2018 by Arnaldo Avelar MD Groin LAB:[facility] DEV / [id number] [id number] Endovascular Graft N/A: [employer] 0 05/2020 [id number] / Implanted: Qty: 1 on 04/15/2018 by Arnaldo Avelar MD Groin / [id number] Aaa Iliac Leg Graft Right: [facility] 021 [id number] / Implanted: Qty: 1 on 04/15/2018 by Arnaldo Avelar MD Groin / Procedures Procedure Name Priority Date/Time Associated Comments Diagnosis RHYTHM STRIP - SCAN 09/15/2019 5:51 PM ATHLETIC DIRECTOR POCT-GLUCOSE METER Routine 09/13/2019 8:24 AM Re sults for this ATHLETIC DIRECTOR procedure are i n the results section. POCT-GLUCOSE METER Routine 09/12/2019 9:03 PM Re sults for this ATHLETIC DIRECTOR procedure are i n the results section. POCT-GLUCOSE METER Routine 09/12/2019 4:56 PM Re sults for this ATHLETIC DIRECTOR procedure are i n the results section. POCT-GLUCOSE METER Routine 09/12/2019 12:26 PM Re sults for this ATHLETIC DIRECTOR procedure are i n the results section. TROPONIN I Routine 09/12/2019 11:59 AM Results for this ATHLETIC DIRECTOR procedure are i n the results section. ECG 12-LEAD STAT 09/12/2019 10:20 AM Results for this ATHLETIC DIRECTOR procedure are i n the results section. POCT-GLUCOSE METER Routine 09/12/2019 8:29 AM Re sults for this ATHLETIC DIRECTOR procedure are i n the results section. TROPONIN I Routine 09/12/2019 4:46 AM Results for this ATHLETIC DIRECTOR procedure are i n the results section. POCT-GLUCOSE METER Routine 09/11/2019 8:56 PM Re sults for this ATHLETIC DIRECTOR procedure are i n the results section. POCT-GLUCOSE METER Routine 09/11/2019 5:16 PM Re sults for this ATHLETIC DIRECTOR procedure are i n the results section. POCT-GLUCOSE METER Routine 09/11/2019 1:36 PM Re sults for this ATHLETIC DIRECTOR procedure are i n the results section. CT BRAIN WITHOUT IV STAT 09/11/2019 12:28 PM R esults for this CONTRAST ATHLETIC DIRECTOR procedure are i n the results section. ECG 12-LEAD STAT 09/11/2019 11:25 AM Results for this ATHLETIC DIRECTOR procedure are i n the results section. POCT-GLUCOSE METER Routine 09/11/2019 7:57 AM Re sults for this ATHLETIC DIRECTOR procedure are i n the results section. POCT-GLUCOSE METER Routine 09/10/2019 9:47 PM Re sults for this ATHLETIC DIRECTOR procedure are i n the results section. POCT-GLUCOSE METER Routine 09/10/2019 5:33 PM Re sults for this ATHLETIC DIRECTOR procedure are i n the results section. POCT-GLUCOSE METER Routine 09/10/2019 12:28 PM Re sults for this ATHLETIC DIRECTOR procedure are i n the results section. POCT-GLUCOSE METER Routine 09/10/2019 10:55 AM Re sults for this ATHLETIC DIRECTOR procedure are i n the results section. POCT-GLUCOSE METER Routine 09/09/2019 8:50 PM Re sults for this ATHLETIC DIRECTOR procedure are i n the results section. POCT-GLUCOSE METER Routine 09/09/2019 12:33 PM Re sults for this ATHLETIC DIRECTOR procedure are i n the results section. POTASSIUM Routine 09/09/2019 12:25 PM Results for this ATHLETIC DIRECTOR procedure are i n the results section. MAGNESIUM Routine 09/09/2019 12:25 PM Results for this ATHLETIC DIRECTOR procedure are i n the results section. POCT-GLUCOSE METER Routine 09/09/2019 9:17 AM Re sults for this ATHLETIC DIRECTOR procedure are i n the results section. CBC (HEMOGRAM ONLY) Routine 09/09/2019 3:35 AM R esults for this ATHLETIC DIRECTOR procedure are i n the results section. PHOSPHORUS Routine 09/09/2019 3:35 AM Results for this ATHLETIC DIRECTOR procedure are i n the results section. MAGNESIUM Routine 09/09/2019 3:35 AM Results for this ATHLETIC DIRECTOR procedure are i n the results section. BASIC METABOLIC Routine 09/09/2019 3:35 AM Resul ts for this PANEL (7) ATHLETIC DIRECTOR procedure are i n the results section. POCT-GLUCOSE METER Routine 09/08/2019 6:29 PM Re sults for this ATHLETIC DIRECTOR procedure are i n the results section. CT BRAIN WITHOUT IV [place] 09/08/2019 4:13 PM R esults for this CONTRAST ATHLETIC DIRECTOR procedure are i n the results section. POCT-GLUCOSE METER Routine 09/08/2019 1:25 PM Re sults for this ATHLETIC DIRECTOR procedure are i n the results section. POCT-GLUCOSE METER Routine 09/08/2019 11:35 AM Re sults for this ATHLETIC DIRECTOR procedure are i n the results section. HEPATIC FUNCTION Routine 09/08/2019 6:09 AM Resu lts for this PANEL ATHLETIC DIRECTOR procedure are i n the results section. after 05/27/2019 Results RHYTHM STRIP - SCAN (09/15/2019 5:51 PM ATHLETIC DIRECTOR) Narrative Performed At This result has an attachment that is no t available. POC-Glucose meter (09/13/2019 8:24 AM ATHLETIC DIRECTOR)Only the most recent of19 results within the time period is included. POC-Glucose Meter 194 (H)Comment: : Notified 70 - 110 mg/dL [facility] RN/MD: TESTED AT [address], [id number]: Fixing Machine Operator/Loading Machine Operator Helper ID = [id number] for RASHAUN RAMIREZ Specimen Blood Performing Organization Address [facility] Phone Number [address] [address] [place] Troponin I (09/12/2019 11:59 AM ATHLETIC DIRECTOR)Only the most recent of2 resultswithin the time period is included. Troponin I <0.01 0.00 - 0.03 ng/mL [facility] Specimen Blood Narrative Performed At Troponin I (TnI) levels must be interpreted [facility] in the context of the presenting symptoms [...] disease, and persistent tachyarrhythmia. Performing Organization Address City/[facility] Phone Number [address] [address] [place] ECG 12 lead (09/12/2019 10:20 AM ATHLETIC DIRECTOR)Only the most recent of2 resultswithin the time period is included. Specimen Narrative Performed At Ventricular Rate 87 BPM GE MUSE Atrial Rate 87 BPM P-R Interval 208 ms QRS Duration 80 ms Q-T Interval 368 ms QTC Calculation(Bazett) 442 ms P [place] 44 degrees R [place] -30 degrees T [place] 71 degrees Normal sinus rhythm Left axis [...] External Ris In - 09/12/2019 3:55 PM ATHLETIC DIRECTOR Ventricular Rate 87 BPM Atrial Rate 87 BPM P-R Interval 208 ms QRS Duration 80 ms Q-T Interval 368 ms QTC Calculation(Bazett) 442 ms P [place] 44 degrees R [place] -30 degrees T [place] 71 degrees Normal sinus rhythm Left axis [...] PM Performing Organization Address City/State/Zipcode Phone Number [employer] CT brain without IV contrast (09/11/2019 12:28 PM ATHLETIC DIRECTOR)Only the most recent of2 resultswithin the time period is included. Specimen Narrative Performed At FINAL REPORT [employer] CT, BRAIN, WITHOUT CONTRAST CLINICAL INDICATION:follow up [...] MD Report Verified Date/Time:09/11/2019 12:30:54 Reading Location: [facility] B1 C013V Neuro [facility] Room Procedure Note Interface, External Ris In - 09/11/2019 12:33 PM ATHLETIC DIRECTOR FINAL REPORT CT, BRAIN, WITHOUT CONTRAST CLINICAL [...] Verified Date/Time: 09/11/2019 1 2:30:54 Reading Location: [facility] C013V Neuro [facility] Room Performing Organization Address City/[facility]/Zipcode Phone Number RIS Potassium (09/09/2019 12:25 PM ATHLETIC DIRECTOR) Potassium 3.7 3.5 - 5.1 meq/L [facility] Specimen Blood Narrative Performed At Check Serum Potassium level 2 hours after [facility] oral potassium replacement completed or 30 min after intravenous potassium replacement. Performing Organization Address City/State/Zipcode Phone Number [facility] [address] [place] [address] CENTER Magnesium (09/09/2019 12:25 PM ATHLETIC DIRECTOR)Only the most recent of2 resultswithin the time period is included. Magnesium 2.3 1.6 - 2.6 mg/dL [facility] Specimen Blood Narrative Performed At Check Serum Potassium level 2 hours after [facility] oral potassium replacement completed or 30 min after intravenous potassium replacement. Performing Organization Address City/[facility] Phone Number [address] [address] [place] CBC (Hemogram only) (09/09/2019 3:35 AM ATHLETIC DIRECTOR) WBC 9.5 3.5 - 10.5 K/L [facility] RBC 4.40 3.93 - 5.22 M/L [facility] Hemoglobin 10.9 (L) 11.2 - 15.7 GM/DL [facility] Hematocrit 34.9 34.1 - 44.9 % [facility] MCV 79.3 (L) 79.4 - 94.8 fL [facility] MCH 24.8 (L) 25.6 - 32.2 pg [facility] MCHC 31.2 (L) 32.2 - 35.5 GM/DL [facility] RDW 19.2 (H) 11.7 - 14.4 % [facility] Platelets 236 150 - 450 K/CU MM [facility] MPV 9.2 (L) 9.4 - 12.3 fL [facility] nRBC 0 0 - 0 /100 WBC [facility] Specimen Blood Performing Organization Address City/[facility] Phone Number [place] [phone] [place] [address] [place] Phosphorus (09/09/2019 3:35 AM ATHLETIC DIRECTOR) Phosphorus 2.9 2.3 - 4.7 mg/dL [facility] Specimen Blood Narrative Performed At Once on admission and Daily AM afterward s [facility] Once on admission and Daily AM afterward s Once on admission and Daily AM afterwards Performing Organization Address [facility] Phone Number [facility] [address] [phone] [place] Basic Metabolic Panel (09/09/2019 3:35 AM ATHLETIC DIRECTOR) Sodium 140 136 - 145 meq/L [facility] Potassium 3.6 3.5 - 5.1 meq/L [facility] Chloride 106 98 - 107 meq/L [facility] CO2 25 22 - 29 meq/L [facility] BUN 13 7 - 21 mg/dL [facility] Creatinine 0.78 0.57 - 1.25 mg/dL [facility] Glucose 178 (H) 70 - 105 mg/dL [facility] Calcium 9.1 8.4 - 10.2 mg/dL [facility] EGFR 72Comment: ESTIMATED GFR IS mL/min/1.73 sq m [facility] NOT ACCURATE CREATININE [facility] CLEARANCE IN PREDICTING GLOMERULAR FILTRATION RATE. ESTIMATED GFR IS NOT APPLICABLE FOR DIALYSIS PATIENTS. Specimen Blood Narrative Performed At Once on admission and Daily AM afterward s [facility] Once on admission and Daily AM afterward s Once on admission and Daily AM afterwards Performing Organization Address City/State/Zipcode Phone Number [phone] [place] Hepatic function panel (09/08/2019 6:09 AM ATHLETIC DIRECTOR) Protein, Total 7.5 6.0 - 8.3 gm/dL [facility] Albumin 4.0 3.5 - 5.0 g/dL [facility] Total Bilirubin 0.6 0.2 - 1.2 mg/dL [facility] Bilirubin, Direct 0.2 0.1 - 0.5 mg/dL [facility] Alkaline Phosphatase 163 (H) 40 - 150 U/L [facility] AST 22 5 - 34 U/L MONICA VELASQUEZ [facility] ALT 18 6 - 55 U/L MONICA OBDULIA [facility] Specimen Blood Performing Organization Address City/State/Zipcode Phone Number MONICA VELASQUEZ [facility] [address] [place] [address] CENTER after 05/27/2019 Insurance Payer Benefit Plan / Group Subscriber ID Type Phone A ddress MEDICARE MEDICARE A B xxxxxxxxxxx Medicare MCR SUPPLEMENT/[employer] xxxxxxxx Medigap Advance Directives For more information, please contact:MONICA Tesfaye [address] [place], [place] [phone] Code Status Date Activated Date Inactivated Comments Full Code 09/08/2019 4:26 AM 09/13/2019 3:28 PM This code status was determined by: Patient Full Code 04/15/2018 10:55 AM 04/19/2018 6:23 PM This code status was determined by: Patient Full Code 04/15/2018 6:03 AM 04/15/2018 10:55 AM This code status was determined by: Patient
--- OUTSIDE RECORDS SUMMARY | 2020-05-27 10:32 | XMS REPORT | Continuity of Care Document ---
:1940 Author Organization [facility] t Address [address] [place] [address] Care Team Providers Name Role Phone Jourdan LAING Primary Care Physician Leandro Tamez MD Attending Clinician Sarita LIANG Attending Clinician Thomas LIANG Attending Clinician LEANDRO TAMEZ Attending Clinician Unavailable TK ANN Attending Clinician Unavailable LEANDRO TAMEZ Admitting Clinician Unavailable TK ANN Admitting Clinician Unavailable Payers Payer Name Policy Policy Number Effective Expiration Source Type Date Date MEDICAREMEDICARE A xxxxxxxxxxx [facility] MCR xxxxxxxx [facility] SUPPLEMENT/INDIVIDUALMUT [facility] - [facility] Problems Condition Condition Condition Status Onset Resolution Last Treating Co mments Source Name Details Category Date Date Treatment Clinician Date ICH ICH Disease Active 2018-[address] [facility] (intracere (intracere 2-20 Adelaida kes - bral bral 00:00: Medical hemorrhage hemorrhage 00 Ce nter ) ) Essential Essential Disease Active 2018-[address] hypertensi hypertensi 2-20 Adelaida kes - on on 00:00: Medical 00 Center Hypertensi Hypertensi Disease Active 2018-[address] ve urgency ve urgency 2-20 Adelaida kes - 00:00: Medical 00 Center Abdominal Abdominal Disease Active [facility] aortic aortic 7- [facility] - aneurysm aneurysm 00:00: Medica l (AAA) 3.0 (AAA) 3.0 00 Cent er cm to 5.0 cm to 5.0 cm in cm in diameter diameter in female in female Abdominal Abdominal Disease Active [facility] aortic aortic 04-15 [facility] - aneurysm aneurysm 00:00: Medica l (AAA) (AAA) 00 Center At high At high Disease Active [facility] risk for risk for 04-15 [facility] - hemodynami hemodynami 00:00: Me dical c c 00 Center instabilit instabilit y y Endovascul Endovascul Disease Active [facility] ar stent ar stent 04-15 [facility] - graft for graft for 00:00: Medi pura abdominal abdominal 00 Cent er aortic aortic aneurysm aneurysm Allergies, Adverse Reactions, Alerts Allergy Allergy Status Severity Reaction(s) Onset Inactive Treating Comm ents Source Name Type Date Date Clinician Codeine Drug Active Other (See 2018-[address] Allergy Comments) 11-09 [facility] - 00:00: Medical 00 [place] Butorpha Propensi Active Other (See Hallucina [facility] nol ty to Comments) 7-26 tions [facility] - Tartrate adverse 00:00: Medical reaction 00 [place] s Statins- Propensi Active Other (See Flu like [facility] Hmg-Coa ty to Comments) 7- symptoms [facility] - Reductas adverse 00:00: Medical e reaction 00 [place] Inhibito s rs Hydrocod Propensi Active Other (See hyperacti [facility] one-Acet ty to Comments) 7-25 vity [facility] - aminophe adverse 00:00: Medical n reaction 00 [place] s Lisinopr Propensi Active angioedem [facility] il ty to 7 a [facility] - adverse 00:00: Medical reaction 00 [place] s Social History Social Habit Start Date Stop Date Quantity Comments Source Sex Assigned At [facility] Smoking Status Start Date Stop Date Source Former smoker 2019-09-08 00:00:00 2019-09-08 00:00:00 [facility] Medications Ordered Filled Start Stop Current Ordering Indication Dosage Frequency Signature Comments Components Source Medication Medication Date Date Medication? Clinician (SIG) Name Name cloNIDine 2018-09 2020- No 1{patch Q7D Place [address] (CATAPRES-T 11-16 } patch onto L [facility] - TS) 0.2 00:00: 23:59 the skin Medic al mg/24 hr 00 :00 once a Center patch week for 28 days. metoprolol 2018-09 No 25mg QD Take [address] (TOPROL-XL) 2-24 12-24 by mouth Fady es - 25 MG 24 hr 08:34: 00:00 daily. Med ical tablet 38 :00 Center pentoxifyll 2018-09 No 400mg Take [address] ine 2-24 12-24 mg by [facility] - (TRENTAL) 08:34: 00:00 mouth 3 Medi pura 400 mg CR 38 :00 (three) Center tablet times daily with meals. metoprolol 2018-09- No 50mg Q.5D Take [address] (LOPRESSOR) 2-22 tablet (50 L ukes - 50 MG 00:00: 23:59 mg total) Medica l tablet 00 :00 by mouth 2 Center (two) times daily for 60 days. amLODIPine 2018-09 No 10mg QD Take [address] (NORVASC) 11-13- tablet (10 Fady es - 10 MG 00:00: 23:59 mg total) Medica l tablet 00 :00 by mouth Center daily for 60 days. traMADol 2018-09- No 50mg Take [address] (ULTRAM) 50 -12 09-31 tablet (50 L ukes - mg tablet 00:00: 23:59 mg total) Me dical 00 :00 by mouth Center every 6 (six) hours as needed for up to 7 days. Max Daily Amount: 200 mg cloNIDine 2018-09 Yes .1mg Take 0.[address] HCl 2-20 mg by [facility] - (CATAPRES) 05:15: mouth 3 Medi pura 0.1 MG 35 (three) Center tablet times daily as needed. pantoprazol 2018-09 Yes 40mg QD Take [address] e 2-20 by mouth [facility] - (PROTONIX) 05:15: daily. Medic al 40 MG 34 Center tablet acetaminoph Yes 650mg Take [address] en 7-31 tablets [facility] - (TYLENOL) 00:00: (650 mg Medic al 325 MG 00 total) by Center tablet mouth every 6 (six) hours as needed for Fever. ALPRAZolam Yes .5mg Take 0.[address] (XANAX) 0.5 7-26 mg by [facility] - MG tablet 12:44: mouth 3 Medic al 30 (three) Center times daily as needed for Anxiety. PARoxetine Yes 10mg QD Take [address] (PAXIL) 10 7-26 by mouth [facility] - MG tablet 12:44: every Medical 30 morning. [place] loratadine Yes 10mg QD Take [address] (CLARITIN) 7-26 by mouth [facility] - 10 mg 12:44: daily. Medical tablet 30 [place] famotidine Yes 20mg QD Take [address] (PEPCID) 20 7- by mouth Luke s - MG tablet 12:44: daily. Medica l 30 [place] triamcinolo Yes 2{spray QD [address] ne - } by Nasal [facility] - (NASACORT) 12:44: route Medica l 55 mcg 30 daily. [place] nasal inhaler Vital Signs Vital Name Observation Time Observation Value Comments Source Respiratory rate 2019-09-13 10:29:00 18 /min [facility] Systolic blood 2019-09-13 07:40:00 178 mm[Hg] [facility] pressure [facility] Diastolic blood 2019-09-13 07:40:00 89 mm[Hg] [facility] Heart rate 2019-09-13 07:40:00 78 /min [facility] Body temperature 2019-09-13 07:40:00 35.78 Melissa [facility] Oxygen saturation in 2019-09-13 07:40:00 94 /min [facility] Arterial blood by Medical Ce nter Pulse oximetry Body height 2019-09-08 04:15:00 167.6 cm [facility] Body weight Measured 2019-09-08 04:15:00 42.2 kg [facility] BMI 2019-09-08 04:15:00 15.02 kg/m2 [facility] Procedures Procedure Date / Time Performed Performing Clinician Sour e RHYTHM STRIP - SCAN 2019-09-15 17:51:45 Provider, Default [facility] POCT-GLUCOSE METER 2019-09-13 08:24:00 [facility] 2019-09-12 21:03:00 [facility]SE METER 2019-09-12 16:56:00 [facility] POCT-GLUCOSE METER 2019-09-12 12:26:00 [facility] TROPONIN I 2019-09-12 11:59:00 Thomas [facility] ECG 12-LEAD 2019-09-12 10:20:30 Thomas [facility] POCT-GLUCOSE METER 2019-09-12 08:29:00 Thomas [facility] TROPONIN I 2019-09-12 04:46:00 Thomas [facility] POCT-GLUCOSE METER 2019-09-11 20:56:00 Thomas [facility] POCT-GLUCOSE METER 2019-09-11 17:16:00 Thomas [facility] POCT-GLUCOSE METER 2019-09-11 13:36:[address] [facility] [address] BRAIN WITHOUT IV 2019-09-11 12:28:00 [facility] 12-LEAD 2019-09-11 11:25:38 [facility] POCT-GLUCOSE METER 2019-09-11 07:57:00 Thomas, [facility] POCT-GLUCOSE METER 2019-09-10 21:47:00 Sarita Serg [facility] POCT-GLUCOSE METER 2019-09-10 17:33:00 Sarita [facility] POCT-GLUCOSE METER 2019-09-10 12:28:00 Sarita [facility] POCT-GLUCOSE METER 2019-09-10 10:55:00 Sarita, [facility] POCT-GLUCOSE METER 2019-09-09 20:50:00 Sarita [facility] POCT-GLUCOSE METER 2019-09-09 12:33:00 [facility] MAGNESIUM 2019-09-09 12:25:00 Yamilka Irene [facility] POTASSIUM 2019-09-09 12:25:00 Yamilka Irene [facility] POCT-GLUCOSE METER 2019-09-09 09:17:[facility] BASIC [facility]ABOLIC PANEL 2019-09-09 03:35:00 Yamilka Irene [address] MAGNESIUM 2019-09-09 03:35:00 Yamilka Irene [facility] PHOSPHORUS 2019-09-09 03:35:00 Yamilka Irene [facility] CBC (HEMOGRAM ONLY) 2019-09-09 03:35:00 Yamilka Irene [facility] POCT-GLUCOSE METER 2019-09-08 18:29:00 [facility] CT BRAIN WITHOUT IV 2019-09-08 16:13:00 Álvaro Pérez [facility] POCT-GLUCOSE METER 2019-09-08 13:25:00 [facility] POCT-GLUCOSE METER 2019-09-08 11:35:00 [facility] HEPATIC FUNCTION PANEL 2019-09-08 06:09:00 Yamilka Irene [facility] Results Test Description Test Time Test Comments Results Result Comments Source POC-Glucose meter 2019-09-13 08:37:00 Test Item Value Reference Range Interpretation Comme nts POC-Glucose Meter (test code = 194 mg/dL 70-110 H : Notified RN/MD: TESTED AT [facility] 1539) [address] [facility], [address]: Manager Star/Techni chalino ID = [id number] for JONATHAN RAMIREZ Lab Interpretation (test code = Abnormal 34811-7) [facility] [id number] 08:37:00 Test Item Value Reference Range Interpretation Comments POC-GLUCOSE METER 194 mg/dL 70-110 H : Notified RN/MD: TESTED (GAMA) (test code AT [facility] [address] [facility] [place] = 1538) [facility], [address]: Manager Star/Techni chalino ID = [id number] for RASHAUN MARTINI POCT-GLUCOSE [id number] 21:14:00 Test Item Value Reference Range Interpretation Comments POC-GLUCOSE METER 232 mg/dL 70-110 H : Notified RN/MD: (GAMA) (test code = TESTED AT [facility] 6720 1538) [facility], [address]: Manager Star/Techni chalino ID = [id number] for LATLONDONRIDSTEVEN LOMAXN ICE POCT-GLUCOSE [id number] 17:08:00 Test Item Value Reference Range Interpretation Comments POC-GLUCOSE METER 210 mg/dL 70-110 H : TESTED A T [facility] 6720 ([facility]) (test code [facility], = 1538) [address]: Manager Star/Techni chalino ID = [id number] for RASHAUN MARTINI ECG 12 [id number] 15:55:15Interface, External Ris In - 09/12/2019 3:55 PM CSTVentricular Rate 87 BPMAtrial Rate 87 BPMP-R Interval 208 msQRS Duration 80 msQ-T Interval 368 msQTC Calculation(Bazett) 442 msP [place] 44 degreesR [place] -30 degreesT [place] 71 degreesNormal sinus rhythmLeft axis deviationModerate voltage criteria for LVH, may be normal variantCannot rule out anteroapical infarct 11 Sep 2019Inferior infarct (cited on or before 14-APR-2018)Abnormal ECGWhen compared with ECG of 11-SEP-2019 11:25,Borderline criteria for Lateral infarct are no longer Present v ersus right precordial leads are no longer usedConfirmed by MD BOB, MICKY ([id number]) on 09/12/2019 3:55:11 [facility] [id number] 12:37:00 Test Item Value Reference Range Interpretation Comments POC-GLUCOSE METER 206 mg/dL 70-110 H : TESTED A T [facility] 67[address] (GAMA) (test code [facility], = 1538) [address]: Manager Star/Techni chalino ID = [id number] for TSEG GAI, TSIGHEREDA Troponin [id number] 12:31:00 Test Item Value Reference Range Interpretation Comments Troponin I (test code = <0.01 0-0.03 48291-7) DEVI (test code = DEVI) Troponin I (TnI) levels must be interpreted [...] acidosis, acute neurological disease, and persistent tachyarrhythmia. Lab Interpretation (test Normal code = 96392-6) [facility] [id number] 12:31:00 Test Item Value Reference Range Interpretation [...] acidosis, acute neurological disease, and persistent tachyarrhythmia.POCT-GLUCOSE [id number] 08:45:00 Test Item Value Reference Range Interpretation Comments POC-GLUCOSE METER 194 mg/dL 70-110 H : Notified RN/MD: TESTED (GAMA) (test code AT [facility] [address] [facility] [place] = 1538) [facility], [address]: Manager Star/Techni chalino ID = [id number] for TSEG GAI, TSIGHEREDA TROPONIN [id number] 06:15:00 Test Item Value Reference Range Interpretation [...] acidosis, acute neurological disease, and persistent tachyarrhythmia.POCT-GLUCOSE [id number] 21:12:00 Test Item Value Reference Range Interpretation Comments POC-GLUCOSE METER 229 mg/dL 70-110 H : [facility] ([facility]) (test code = [facility], 1538) [address]: Manager Star/Techni chalino ID = [id number] for DINO SETH POCT-GLUCOSE [id number] 17:27:00 Test Item Value Reference Range Interpretation Comments POC-GLUCOSE METER 148 mg/dL 70-110 H : Notified RN/MD: ([facility]) (test code = TESTED AT [facility] 6720 1538) [facility], [address]: Manager Star/Techni chalino ID = [id number] for JD MENDEZ POCT-GLUCOSE [id number] 13:47:00 Test Item Value Reference Range Interpretation Comments POC-GLUCOSE METER 252 mg/dL 70-110 H : [facility] ([facility]) (test code = [facility], 1538) [address]: Manager Star/Techni chalino ID = [id number] for FLY SOLIS CT, BRAIN, WITHOUT [id number] 12:30:00FINAL REPORT CT, BRAIN, WITHOUT CONTRAST CLINICAL [...] MDReport Verified Date/Time: 09/11/2019 12:30:54 Reading Location: [address] Neuro Reading Room CT brain without IV [id number] 12:30:00Interface, External Ris In - 09/11/2019 12:[address], BRAIN, WITHOUT CONTRAST CLINICAL INDICATION: follow up ICH, worsening headache COMPARISON: September 08, 2019 TECHNIQUE: Noncontrast axial CT imaging of the brain and skull. DOSE REDUCTION: Dose modulation, iterative reconstruction, and/or weight-based adjustment of the mA/kV was utilized to reduce the radiation dose to as low as reasonably achievable. 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 No new hemorrhage or infarct is detected in the remaining portions of the brain parenchyma. There is no midline shift or hydrocephalus. Osseous structures are stable. IMPRESSION: Stable intracranial appearance when compared to September 08, 2019 Signed: JR Christopher Robert MDReport Verified Date/Time: 09/11/2019 12:30:54 Reading Location: [facility] C013 Neuro Reading Room [facility] [id number] 08:09:00 Test Item Value Reference Range Interpretation Comments POC-GLUCOSE METER 193 mg/dL 70-110 H : Notified RN/MD: (GAMA) (test code = TESTED AT [place] [address]38) [facility], [address]: Manager Star/Techni chalino ID = [id number] for MILAD MENDZEETI POCT-GLUCOSE [id number] 22:01:00 Test Item Value Reference Range Interpretation Comments POC-GLUCOSE METER 251 mg/dL 70-110 H : Notified RN/MD: (GAMA) (test code = TESTED AT [facility] 6720 [address]38) [facility], [address]: Manager Star/Techni chalino ID = [id number] for JUANITA TATUM ICE POCT-GLUCOSE [id number] 18:45:00 Test Item Value Reference Range Interpretation Comments POC-GLUCOSE METER 192 mg/dL 70-110 H : TESTED A T [facility] 67[address] (BEAKER) (test code = [facility], 1538) [address]: Manager Star/Techni chalino ID = [id number] for FLY SOLIS POCT-GLUCOSE [id number] 12:40:00 Test Item Value Reference Range Interpretation Comments POC-GLUCOSE METER 198 mg/dL 70-110 H : TESTED A T [facility] 67[address] (BEAKER) (test code = [facility], 1538) [address]: Manager Star/Techni chalino ID = [id number] for FLY SOLIS POCT-GLUCOSE [id number] 11:07:00 Test Item Value Reference Range Interpretation Comments POC-GLUCOSE METER 223 mg/dL 70-110 H : TESTED A T [facility] 67[address] (BEAKER) (test code = [facility], 1538) [address]: Manager Star/Techni chalino ID = [id number] for FLY SOLIS POCT-GLUCOSE [id number] 21:01:00 Test Item Value Reference Range Interpretation Comments POC-GLUCOSE METER 284 mg/dL 70-110 H : TESTED A T [facility] 67[address] (BEAKER) (test code = [facility], 1538) [address]: Manager Star/Techni chalino ID = [id number] for EULALIA RAMSEY [id number] 13:03:00 Test Item Value Reference Range Interpretation Comments Magnesium (test code = 2.3 mg/dL 1.6-2.6 70875-8) DEVI (test code = DEVI) Check Serum Potassium level 2 hours after oral potassium replacement completed or 30 min after intravenous potassium replacement. Lab Interpretation (test Normal code = 88058-5) [facility] CenterPotassium2019-12-21 13:03:00 Test Item Value Reference Range Interpretation Comments Potassium (test code = 3.7 meq/L 3.5-5.1 2823-3) DEVI (test code = DEVI) Check Serum Potassium level 2 hours after oral potassium replacement completed or 30 min after intravenous potassium replacement. Lab Interpretation (test Normal code = 65404-3) [facility] CenterPOTASSIUM2019-12-21 13:03:00 Test Item Value Reference Range Interpretation Comments POTASSIUM (BEAKER) (test code = 3.7 meq/L 3.5-5.1 379) Check Serum Potassium level 2 hours after oral potassium replacement completed or 30 min after intravenous potassium replacement.[id number] 13:03:00 Test Item Value Reference Range Interpretation Comments MAGNESIUM (GAMA) (test code = 2.3 mg/dL 1.6-2.6 627) Check Serum Potassium level 2 hours after oral potassium replacement completed or 30 min after intravenous potassium replacement.POCT-GLUCOSE [id number] 12:44:00 Test Item Value Reference Range Interpretation Comments POC-GLUCOSE METER 188 mg/dL 70-110 H : TESTED A T [facility] 6720 (GAMA) (test code = [facility], 1538) [address]: Manager Star/Techni chalino ID = [id number] for TAQUERIA MCNULTY POCT-GLUCOSE [id number] 09:29:00 Test Item Value Reference Range Interpretation Comments POC-GLUCOSE METER 179 mg/dL 70-110 H : Notified RN/MD: (GAMA) (test code = TESTED AT [facility] 67[address] 1538) [facility], [address]: Manager Star/Techni chalino ID = [id number] for DARLENE ELZA GUALLPA Basic Metabolic [id number] 04:17:00 Test Item Value Reference Range Interpretation Comments Sodium (test code = 140 meq/L 632-928 1353-2) Potassium (test code 3.6 meq/L 3.5-5.1 = 2823-3) Chloride (test code 106 meq/L 98-107 = 2075-0) CO2 (test code = 25 meq/L -29 8-9) BUN (test code = 13 mg/dL - 3094-0) Creatinine (test 0.78 mg/dL 0.57-1.25 code = 2160-0) Glucose (test code = 178 mg/dL 70-105 H 2345-7) Calcium (test code = 9.1 mg/dL 8.4-10.2 80817-4) EGFR (test code = 72 mL/min/1.73 sq ESTIMATE D GFR 95138-7) m IS NOT ACCURATE CREATININE CLEARANCE IN PREDICTING GLOMERULAR FILTRATION RATE. ESTIMATED GFR IS NOT APPLICABLE FOR DIALYSIS PATIENTS. DEVI (test code = Once on admission DEVI) and Daily AM afterwardsOnce on admission and Daily AM afterwardsOnce on admission and Daily AM afterwards Lab Interpretation Abnormal (test code = 98257-0) [facility] CenterPhosphorus2019-12-21 04:17:00 Test Item Value Reference Range Interpretation Comments Phosphorus (test code = 2.9 mg/dL 2.3-4.7 2777-1) DEVI (test code = DEVI) Once on admission and Daily AM afterwardsOnce on admission and Daily AM afterwardsOnce on admission and Daily AM afterwards Lab Interpretation Normal (test code = 34861-3) [facility] CenterPHOSPHORUS2019-12-21 04:17:00 Test Item Value Reference Range Interpretation Comments PHOSPHORUS (BEAKER) (test code = 2.9 mg/dL 2.3-4.7 604) Once on admission and Daily AM afterwardsOnce on admission and Daily AM afterwardsOnce on admission and Daily AM [id number] 04:17:00 Test Item Value Reference Range Interpretation [...] afterwardsOnce on admission and Daily AM afterwardsCBC (Hemogram only)2019-09-09 03:55:00 Test Item Value Reference Range Interpretation Comments WBC (test code = 6690-2) 9.5 3.5- 10.5 K/L RBC (test code = 789-8) 4.40 3.93- 5.22 M/L MCHC (test code = 786-4) 31.2 32.2- 35.5 GM/DL L Hematocrit (test code = 4544-3) 34.9 % 34.1-44.9 MCV (test code = 787-2) 79.3 fL 79.4-94.8 L MCH (test code = 785-6) 24.8 pg 25.6-32.2 L RDW (test code = 788-0) 19.2 % 11.7-14.4 H Platelets (test code = 777-3) 236 150- 450 K/CU MM MPV (test code = 05038-1) 9.2 fL 9.4-12.3 L nRBC (test code = 413) 0 0- 0 /100 WBC Lab Interpretation (test code = Abnormal 54987-4) [facility]CBC (HE[facility] ONLY)2019-09-09 03:55:00 Test Item Value Reference [...] 0-0 (BEAKER) (test code = 413) POCT-GLUCOSE [id number] 21:26:00 Test Item Value Reference Range Interpretation Comments POC-GLUCOSE METER 250 mg/dL 70-110 H : TESTED A T [facility] 6720 (BEAKER) (test code = [place], 1538) [address]: Manager Star/Techni chalino ID = [id number] for An Yasmin julien CT, BRAIN, WITHOUT [id number] 17:20:00FINAL REPORT CT, BRAIN, WITHOUT CONTRAST INDICATION: [...] be performed for further characterization. Signed: Suzie Farias Verified Date/Time: 09/08/2019 17:20:18 POCT-GLUCOSE [id number] 13:37:00 Test Item Value Reference Range Interpretation Comments POC-GLUCOSE METER 168 mg/dL 70-110 H : TESTED A T [facility] 6720 (BEAKER) (test code = [place], 1538) [address]: Manager Star/Techni chalino ID = [id number] for An Yasmin julien POCT-GLUCOSE [id number] 11:53:00 Test Item Value Reference Range Interpretation Comments POC-GLUCOSE METER 193 mg/dL 70-110 H : TESTED A T [facility] 6720 (BEAKER) (test code = [place]TA Vega [facility], 1538) [address]: Manager Star/Techni chalino ID = [id number] for BEULAH JOHNSTON Hepatic function [id number] 07:38:00 Test Item Value Reference Range Interpretation Comments Protein, Total (test code = 2885-2) 7.5 6.0- 8.3 gm/dL Albumin (test code = 17656-2) 4.0 g/dL 3.5-5 Total Bilirubin (test code = 0.6 mg/dL 0.2-1.2 1974-2) Bilirubin, Direct (test code = 0.2 mg/dL 0.1-0.5 1967-7) Alkaline Phosphatase (test code = 163 U/L 40-150 H 6768-6) AST (test code = 1920-8) 22 U/L 5-34 ALT (test code = 1742-6) 18 U/L 6-55 Lab Interpretation (test code = Abnormal 51345-4) [facility] CenterHEPATIC FUNCTION [id number] 07:38:00 Test Item Value Reference Range Interpretation Comments TOTAL PROTEIN (BEAKER) (test code = 7.5 gm/dL 6.0-8.3 770) [...] 6-55 347) RAD, CHEST, 1 VIEW, NON [id number] 10:16:00Reason for exam:->S/P EVARShould this be performed [...] skin fold is suspected. Signed: Dena Talavera [facility] Verified Date/Time: 04/19/2018 10:16:05 Reading Location: [facility] Radiology Reading Room [id number] 05:21:00 Test Item Value Reference Range Interpretation Comments PHOSPHORUS (BEAKER) (test code = 4.0 mg/dL 2.3-4.7 604) [id number] 05:21:00 Test Item Value Reference Range Interpretation Comments MAGNESIUM (BEAKER) (test code = 2.2 mg/dL 1.6-2.6 627) BASIC METABOLIC [id number] 05:21:00 Test Item Value Reference Range Interpretation [...] I S NOT APPLICABLE FOR DIALYSIS PATIEN [id number] 04:58:00 Test Item Value Reference Range Interpretation Comments PARTIAL THROMBOPLASTIN TIME 36.6 seconds 22.5-36.0 H (BEAKER) (test code = 760) PROTHROMBIN [id number] 04:57:00 Test Item Value Reference Range Interpretation [...] = 413) RAD, CHEST, 1 VIEW, NON [id number] 08:00:00Reason for exam:->S/P EVARShould this be performed at the bedside?->YesFINAL REPORT Chest one view INDICATION: EVAR COMPARISON: 04/17/2018 IMPRESSION: The aorta remains ectatic/tortuous. There is stable cardiomegaly. There are coarsened interstitial markings. Faint basilar opacities suggest atelectasis. No new consolidation, significant pleural effusion, or pneumothorax is seen. Abdominal aortic stent graft is present. The bones appear unchanged. Signed: Dena Talavera [facility] Verified Date/Time: 04/18/2018 08:00:53 Reading Location: [facility] Radiology Reading Room [id number] 05:25:00 Test Item Value Reference Range Interpretation Comments PHOSPHORUS (BEAKER) (test code = 3.6 mg/dL 2.3-4.7 604) [id number] 05:25:00 Test Item Value Reference Range Interpretation Comments MAGNESIUM (BEAKER) (test code = 2.2 mg/dL 1.6-2.6 627) BASIC METABOLIC [id number] 05:25:00 Test Item Value Reference Range Interpretation [...] S NOT APPLICABLE FOR DIALYSIS PATIEN TS. [id number] 05:06:00 Test Item Value Reference Range Interpretation Comments PARTIAL THROMBOPLASTIN TIME 36.5 seconds 22.5-36.0 H (BEAKER) (test code = 760) PROTHROMBIN [id number] 05:05:00 Test Item Value Reference Range Interpretation [...] = 413) RAD, CHEST, 1 VIEW, NON [id number] 10:31:00Reason for exam:->S/P EVARShould this be performed at the bedside?->YesFINAL REPORT Chest, one view. HISTORY: Status post aortic repair COMPARISON: IMPRESSION: No significant change. Unchanged tortuosity and ectasia of the thoracic aorta.Mild interstitial edema. No large pleural effusion or pneumothorax. Signed: Gera Hebert MDR[facility] Verified Date/Time: 04/17/2018 10:31:41 Reading Location: [address] Body Reading Room [id number] 06:43:00 Test Item Value Reference Range Interpretation Comments PHOSPHORUS (BEAKER) (test code = 3.3 mg/dL 2.3-4.7 604) [id number] 06:43:00 Test Item Value Reference Range Interpretation Comments MAGNESIUM (BEAKER) (test code = 2.0 mg/dL 1.6-2.6 627) [id number] 06:23:00 Test Item Value Reference Range Interpretation Comments PARTIAL THROMBOPLASTIN TIME 36.4 seconds 22.5-36.0 H (BEAKER) (test code = 760) PROTHROMBIN [id number] 06:22:00 Test Item Value Reference Range Interpretation [...] = 413) RAD, CHEST, 1 VIEW, NON [id number] 09:02:00Reason for exam:->S/P EVARShould this be performed at the bedside?->YesFINAL REPORT Chest, one view. HISTORY: Status post aortic repair COMPARISON: IMPRESSION: No significant change. Unchanged tortuosity and ectasia of the thoracic aorta.Lungs clear without focal consolidation. No large pleural effusion or pneumothorax. Unchanged right apical pleural thickening. Partially visualized aortic stent graft in the abdominal aorta. Signed: Gera Hebert MDR[facility] Verified Date/Time: 04/16/2018 09:02:11 Reading Location: [facility] C013Y CT Body Reading Room [id number] 06:11:00 Test Item Value Reference Range Interpretation Comments PHOSPHORUS (BEAKER) (test code = 1.9 mg/dL 2.3-4.7 L 604) [id number] 06:11:00 Test Item Value Reference Range Interpretation Comments MAGNESIUM (BEAKER) (test code = 2.0 mg/dL 1.6-2.6 627) BASIC METABOLIC [id number] 06:11:00 Test Item Value Reference Range Interpretation [...] S NOT APPLICABLE FOR DIALYSIS PATIEN TS. [id number] 05:46:00 Test Item Value Reference Range Interpretation Comments PARTIAL THROMBOPLASTIN TIME 32.0 seconds 22.5-36.0 (BEAKER) (test code = 760) PROTHROMBIN [id number] 05:45:00 Test Item Value Reference Range Interpretation [...] WBC 0-0 (BEAKER) (test code = 413) [id number] 13:56:00 Test Item Value Reference Range Interpretation Comments ACTIVATED CLOTTING TIME [address] [facility] 6720 (BEAKER) (test code = RENETTA Silvia [facility] 441) [address] RAD, ABDOMEN/KUB, 1 VIEW [id number] 12:39:00Reason for exam:->Postop AAA FINAL REPORT CLINICAL [...] DavisMDReport Verified Date/Time: 04/15/2018 12:39:57 Reading Location: [facility] Radiology Reading Room RAD, CHEST, 1 VIEW, NON [id number] 12:38:00For chest painReason for exam:->post opShould this be performed at the bedside?->YesFINAL REPORT CLINICAL HISTORY: post op TECHNIQUE: 1 view of the chest. COMPARISON: 04/10/2018 IMPRESSION: There are no focal infiltrates or effusions. Cardiomegaly is again seen with tortuosity of the thoracic aorta. Signed: Hardik Davis MDR[facility] Verified Date/Time: 04/15/201812:38:40 Reading Location: [facility] Radiology Reading Room [id number] 11:51:00 Test Item Value Reference Range Interpretation Comments PHOSPHORUS (BEAKER) (test code = 3.2 mg/dL 2.3-4.7 604) BASIC METABOLIC [id number] 11:51:00 Test Item Value Reference Range Interpretation [...] PATIEN TS. CBC W/PLT COUNT & AUTO [id number] 11:23:00 Test Item Value Reference Range Interpretation [...] PERCENT (BEAKER) (test code = 2801) PROTHROMBIN [id number] 11:22:00 Test Item Value Reference Range Interpretation Comments PROTIME (BEAKER) (test code = 15.7 seconds 11.7-14.7 H 759) INR (BEAKER) (test code = 370) 1.3 <=5.9 RECOMMENDED COUMADIN/WARFARIN INR THERAPY RANGESSTANDARD DOSE: 2.0 - 3.0 Includes: PROPHYLAXIS forvenous thrombosis, systemic embolization; TREATMENT for venous thrombosis and/or pulmonary embolus.HIGH RISK: Target INR is 2.5-3.5 for patients with mechanical heart valves.CALCIUM, [id number] 11:06:00 Test Item Value Reference Range Interpretation Comments CALCIUM IONIZED (BEAKER) (test 1.25 mmol/L 1.12-1.27 code = 698) PH, BLOOD (BEAKER) (test code = 7.37 1810) HEPATITIS C [id number] 15:18:00 Test Item Value Reference Range Interpretation Comments HEPATITIS C ANTIBODY (BEAKER) Nonreactive Nonreactive (test code = 367) HEPATITIS B [id number] 15:18:00 Test Item Value Reference Range Interpretation Comments HEPATITIS B CORE TOTAL ANTIBODY Nonreactive Nonreactive (BEAKER) (test code = 497) HEPATITIS B SURFACE ANTIBODY 63.1 mIU/mL <8.0 H (BEAKER) (test code = 647) HEPATITIS B SURFACE ANTIGEN (2) Nonreactive Nonreactive (BEAKER) (test code = 2585) HIV-1 ANTIGEN WITH HIV-1/2 [id number] 15:18:00 Test Item Value Reference Range Interpretation Comments HIV-1 ANTIGEN WITH HIV 1\T\2 Nonreactive Nonreactive ANTIBODY (2) (BEAKER) (test code = 2586) [id number] 15:08:00 Test Item Value Reference Range Interpretation Comments LIPASE (BEAKER) (test code = 749) 10 U/L 8-78 [id number] 15:08:00 Test Item Value Reference Range Interpretation Comments AMYLASE (BEAKER) (test code = 349) 40 U/L 25-125 BASIC METABOLIC [id number] 15:08:00 Test Item Value Reference Range Interpretation [...] APPLICABLE FOR DIALYSIS PATIEN TS. HEPATIC FUNCTION [id number] 15:08:00 Test Item Value Reference Range Interpretation [...] 238 U/L 125-220 H code = 635) [id number] 14:47:00 Test Item Value Reference Range Interpretation Comments PARTIAL THROMBOPLASTIN TIME 31.9 seconds 22.5-36.0 (BEAKER) (test code = 760) PROTHROMBIN [id number] 14:46:00 Test Item Value Reference Range Interpretation Comments PROTIME (BEAKER) (test code = 14.1 seconds 11.7-14.7 759) INR (BEAKER) (test code = 370) 1.1 <=5.9 RECOMMENDED COUMADIN/WARFARIN INR THERAPY RANGESSTANDARD DOSE: 2.0 - 3.0 Includes: PROPHYLAXIS forvenous thrombosis, systemic embolization; TREATMENT for venous thrombosis and/or pulmonary embolus.HIGH RISK: Target INR is 2.5-3.5 for patients with mechanical heart valves.RETICULOCYTE [id number] 14:36:00 Test Item Value Reference Range Interpretation Comments RETICULOCYTE COUNT PCT (BEAKER) (test 1.0 % 0.5-1.7 code = 575) CBC W/PLT COUNT & AUTO [id number] 14:36:00 Test Item Value Reference Range Interpretation [...] (BEAKER) (test code = 2801) URINALYSIS W/ [id number] 14:25:00 Test Item Value Reference Range Interpretation [...] (test code = 2795) RAD, CHEST, 2 [id number] 14:12:00Reason for exam:->surgeryFINAL REPORT Chest, two views HISTORY: Surgery COMPARISON: None. DISCUSSION: Lungs are clear without focal consolidation. Cardiomediastinal silhouette is unremarkable. Tortuosityand ectasia of the thoracic aorta. No acute osseous abnormality. No pleural effusion or pneumothorax. Visualized portions of the upper abdomen are unremarkable. IMPRESSION: No acute cardiopulmonary abnormality. Signed: Gera Hebert [facility] Verified Date/Time: 04/14/2018 14:12:09 Reading Location: [address] Radiology Reading Room 02:12 PM
[2020-05-27 11:45] LABS: Urine Blood 1+ (NEG); Urine Glucose NEGATIVE (NEG); Urine Protein TRACE (NEG)
[2020-05-27 11:49] LABS: Absolute Lymphocytes (CBC) 1.4 K/uL (0.7-4.9); Basophils % 0.6 % (0-1.3); Hematocrit 36.3 % (36.0-45.0); Lymphocytes % 18.1 % (15.3-44.8); MPV 8.5 fL (7.6-11.3); RBC Red Blood Cell Count 4.35 M/uL (3.86-4.86)
[2020-05-27 11:55] LABS: Albumin 3.3 g/dL (3.4-5.0); Bilirubin Total 0.4 mg/dL (0.2-1.0); Protein, Total 6.9 g/dL (6.4-8.2)
--- NOTE | 2020-05-27 12:04 | RAD REPORT ---
EXAM DESCRIPTION: CT - Head Brain Wo Cont - 05/27/2020 11:35 am CLINICAL HISTORY: weakness, LE bilat, altered mental status COMPARISON: Head Brain Wo Cont dated 02/21/2020 TECHNIQUE: Axial 5 mm thick images of the head were obtained without IV contrast. All CT scans are performed using dose optimization technique as appropriate and may include automated exposure control or mA/KV adjustment according to patient size. FINDINGS: No intracranial hemorrhage, mass, edema or shift of mid-line structures. No acute infarcti on changes seen. No cortical edema or sulcal effacement. Patient has advanced chronic ischemic change in the cerebral white matter with involvement of the basal ganglia, thalamus and brainstem tissues. External capsule and insular cortex involvement noted as well. Moderate severity atrophy changes are present with ventricles in proportion to volume loss. Intracranial findings are similar to the February 20 study. Mastoid air cells and visualized portions of the paranasal sinuses are clear. No acute bony findings. IMPRESSION: No hemorrhage, mass or acute intracranial finding. Prominent atrophy and chronic ischemic change as detailed. Findings are similar to comparison.
--- NOTE | 2020-05-27 12:04 | RAD REPORT ---
EXAM DESCRIPTION: RAD - Chest Single View - 05/27/2020 11:43 am CLINICAL HISTORY: CONGESTION, weakness, history aortic aneurysm COMPARISON: Portable February 20 TECHNIQUE: AP portable chest image was obtained 05/27/2020 11:43 am . FINDINGS: No acute lung parenchymal process. Interstitial pattern matches comparison. Heart and vasc ulature are normal. No measurable pleural effusion and no pneumothorax. No acute bony abnormality see n. Prominent tortuous aorta noted. Aortic pattern is similar to comparison. IMPRESSION: No acute cardiopulmonary process. No significant change from comparison.
--- NOTE | 2020-05-27 12:56 | EDPHYS ---
Physician Documentation [facility] Name: Syl Sheikh Age: 80 yrs Sex: Female : 1940 Arrival Date: 05/27/2020 Time: 10:33 Bed 20 Private MD: ED Physician Ankit Mario HPI: 05/27 11:57 This 80 yrs old Female presents to ER via EMS with complaints of General ma2 Weakness. 11:57 generalized weakness for few days, mild . Onset: The symptoms/episode began/occurred ma2 gradually, 1 day(s) ago. Severity of symptoms: in the emergency department the symptoms have improved. The patient has not experienced similar symptoms in the past. Historical: - Allergies: 10:49 butorphanol tartrate; iw 10:49 Codeine; iw 10:49 Hydrocodone-Acetaminophen; iw 10:49 Lisinopril; iw 10:49 Stadol; iw 10:49 statin drugs; iw 10:49 Ibuprofen; iw - PMHx: 10:49 abdominal aortic aneurysm; CVA; Diabetes - NIDDM; GERD; Hypertension; TIA; iw - Immunization history:: Adult Immunizations up to date. - Social history:: Patient/guardian denies using alcohol, street drugs, The patient lives Smoking status: unknown. - Family history:: not pertinent. ROS: 11:57 Constitutional: Negative for fever, chills, and weight loss. ma2 11:57 All other systems are negative. Exam: 11:57 Constitutional: This is a well developed, well nourished patient who is awake, alert, ma2 and in no acute distress. Head/Face: Normocephalic, atraumatic. Eyes: Pupils equal round and reactive to light, extra-ocular motions intact. Lids and lashes normal. Conjunctiva and sclera are non-icteric and not injected. Cornea within normal limits. Periorbital areas with no swelling, redness, or edema. ENT: Nares patent. No nasal discharge, no septal abnormalities noted. Tympanic membranes are normal and external auditory canals are clear. Oropharynx with no redness, swelling, or masses, exudates, or evidence of obstruction, uvula midline. Mucous membranes moist. Neck: Trachea midline, no thyromegaly or masses palpated, and no cervical lymphadenopathy. Supple, full range of motion without nuchal rigidity, or vertebral point tenderness. No Meningismus. Chest/axilla: Normal chest wall appearance and motion. Nontender with no deformity. No lesions are appreciated. Cardiovascular: Regular rate and rhythm with a normal S1 and S2. No gallops, murmurs, or rubs. Normal PMI, no JVD. No pulse deficits. Respiratory: Lungs have equal breath sounds bilaterally, clear to auscultation and percussion. No rales, rhonchi or wheezes noted. No increased work of breathing, no retractions or nasal flaring. Abdomen/GI: Soft, non-tender, with normal bowel sounds. No distension or tympany. No guarding or rebound. No evidence of tenderness throughout. Back: No spinal tenderness. No costovertebral tenderness. Full range of motion. Skin: Warm, dry with normal turgor. Normal color with no rashes, no lesions, and no evidence of cellulitis. MS/ Extremity: Pulses equal, no cyanosis. Neurovascular intact. Full, normal range of motion. Neuro: Awake and alert, GCS 15, oriented to person, place, time, and situation. Cranial nerves II-XII grossly intact. Motor strength 5/5 in all extremities. Sensory grossly intact. Cerebellar exam normal. Normal gait. Vital Signs: 10:45 BP 144 / 91; Pulse 75; Resp 16; Temp 98.8; Pulse Ox 99% on R/A; Weight 63.5 kg; Height iw 5 ft. 6 in. (167.64 cm); 13:10 BP 163 / 82; Pulse 73; Resp 16; Pulse Ox 99% ; bp 10:45 Body Mass Index 22.60 (63.50 kg, 167.64 cm) iw MDM: 10:43 Patient medically screened. ma2 11:57 Differential Diagnosis sepsis, uti, vs electrolyte abnormality . Data reviewed: vital ma2 signs, nurses notes. Counseling: I had a detailed discussion with the patient and/or guardian regarding: the historical points, exam findings, and any diagnostic results supporting the discharge/admit diagnosis, the presence of at least one elevated blood pressure reading (>120/80) during this emergency department visit, the need for outpatient follow up. Response to treatment: the patient's symptoms have markedly improved after treatment. 05/27 11:13 Order name: Urine Dipstick--Ancillary (enter results); Complete Time: 11:56 05/27 11:18 Order name: CMP; Complete Time: 11:[address] [facility] 05/27 11:18 Order name: CBC with Diff; Complete Time: 11:[address] [facility] 05/27 11:18 Order name: CT Head Brain wo Cont; Complete Time: 12:[address] [facility] 05/27 11:18 Order name: Lactate; Complete Time: 11:[address] [facility] 05/27 11:18 Order name: Chest Single View XRAY; Complete Time: 12:[address] [facility] 05/27 11:14 Order name: Urine Dipstick-Ancillary (obtain specimen); Complete Time: 11:14 Administered Medications: No medications were administered Disposition: 05/27/20 12:56 Discharged to Home. Impression: Weakness. - Condition is Stable. - Discharge Instructions: Weakness, Rdag-[id number]-[id number]. - Medication Reconciliation Form, Thank You Letter, Antibiotic Education, Prescription Opioid Use form. - Follow up: Private Physician; When: Tomorrow; Reason: Continuance of care. Signatures: Dispatcher [employer] Kasandra Norris RN Rico Valadez RN RN bp Ankit Mario MD MD ma2 Corrections: (The following items were deleted from the chart) 13:13 12:56 05/27/2020 12:56 Discharged to Home. Impression: Weakness. Condition is Stable. bp Forms are Medication Reconciliation Form, Thank You Letter, Antibiotic Education, Prescription Opioid Use. Follow up: Private Physician; When: Tomorrow; Reason: Continuance of care. ma2
--- NOTE | 2020-05-27 12:56 | ER ---
Nurse's Notes [facility] Name: Syl Sheikh Age: 80 yrs Sex: Female : 1940 Arrival Date: 05/27/2020 Time: 10:33 Bed 20 Private MD: Diagnosis: Weakness Presentation: 05/27 10:35 Chief complaint: EMS states: not feeling well, generalized weakness X 2 days. iw 10:35 Acuity: MP 3 iw 10:45 Coronavirus screen: At this time, the client does not indicate any symptoms associated iw with coronavirus-19. Ebola Screen: Patient negative for fever greater than or equal to 101.5 degrees Fahrenheit, and additional compatible Ebola Virus Disease symptoms Patient denies exposure to infectious person. Patient denies travel to an Ebola-affected area in the 21 days before illness onset. No symptoms or risks identified at this time. Initial Sepsis Screen: Does the patient meet any 2 criteria? No. Patient's initial sepsis screen is negative. Does the patient have a suspected source of infection? No. Patient's initial sepsis screen is negative. Risk Assessment: Do you want to hurt yourself or someone else? Patient reports no desire to harm self or others. Onset of symptoms was May 25, 2020. 10:45 Method Of Arrival: EMS: [facility] iw 11:07 Care prior to arrival: IV initiated. 20 GA, in the left antecubital area, Glucose iw check: 143. Triage Assessment: 10:50 General: Appears distressed, comfortable, Behavior is cooperative, appropriate for age, bp anxious. Pain: Denies pain. EENT: No deficits noted. Neuro: Reports weakness. Cardiovascular: No deficits noted. Respiratory: No deficits noted. GI: No signs and/or symptoms were reported involving the gastrointestinal system. : No signs and/or symptoms were reported regarding the genitourinary system. Derm: No deficits noted. Musculoskeletal: No deficits noted. Historical: - Allergies: 10:49 butorphanol tartrate; iw 10:49 Codeine; iw 10:49 Hydrocodone-Acetaminophen; iw 10:49 Lisinopril; iw 10:49 Stadol; iw 10:49 statin drugs; iw 10:49 Ibuprofen; iw - PMHx: 10:49 abdominal aortic aneurysm; CVA; Diabetes - NIDDM; GERD; Hypertension; TIA; iw - Immunization history:: Adult Immunizations up to date. - Social history:: Patient/guardian denies using alcohol, street drugs, The patient lives Smoking status: unknown. - Family history:: not pertinent. Screenin:15 Abuse screen: Denies threats or abuse. Denies injuries from another. Nutritional iw screening: No deficits noted. Tuberculosis screening: No symptoms or risk factors identified. Fall Risk IV access (20 points). Assessment: 11:14 General: Appears in no apparent distress. Behavior is calm, cooperative. General: iw Reports fatigue for Denies fever. Pain: Denies pain. Neuro: Level of Consciousness is awake, alert, obeys commands, Oriented to person, place, time, situation, Moves all extremities. Full function. Cardiovascular: Patient's skin is warm and dry. Respiratory: Respiratory effort is even, unlabored, Respiratory pattern is regular, symmetrical. : Reports incontinence, Denies burning with urination. Derm: Skin is intact, is fragile. Musculoskeletal: Range of motion: intact in all extremities. 13:11 Reassessment: PT D/C HOME VIA W/C WITH FAMILY, DX WITH GEN WEAKNESS. bp Vital Signs: 10:45 BP 144 / 91; Pulse 75; Resp 16; Temp 98.8; Pulse Ox 99% on R/A; Weight 63.5 kg; Height iw 5 ft. 6 in. (167.64 cm); 13:10 BP 163 / 82; Pulse 73; Resp 16; Pulse Ox 99% ; bp 10:45 Body Mass Index 22.60 (63.50 kg, 167.64 cm) iw ED Course: 10:33 Patient arrived in ED. iw 10:34 Kasandra Cole, RN is Primary Nurse. iw 10:35 Triage completed. iw 10:43 Ankit Mario MD is Attending Physician. ma2 11:03 Arm band placed on. iw 11:07 Maintain EMS IV. Dressing intact. Good blood return noted. Site clean \T\ dry. Gauge \T\ iw site: 20 LAC. 11:34 CT Head Brain wo Cont In Process Unspecified. EDMS 11:42 Chest Single View XRAY In Process Unspecified. EDMS 13:11 Patient has correct armband on for positive identification. Bed in low position. Call bp light in reach. Side rails up X2. 13:11 No provider procedures requiring assistance completed. IV discontinued, intact, bp bleeding controlled, No redness/swelling at site. Pressure dressing applied. Administered Medications: No medications were administered Outcome: 12:56 Discharge ordered by MD. huynh 13:11 Discharged to home via wheelchair, with family. bp 13:11 Condition: stable 13:11 Discharge instructions given to patient, Instructed on discharge instructions, follow up and referral plans. Demonstrated understanding of instructions, follow-up care. 13:13 Patient left the ED. bp Signatures: Dispatcher [employer] EDKasandra Lomeli RN RN iw Peltier, Brian RN RN Ankit Ochoa MD MD ma2 Corrections: (The following items were deleted from the chart) 10:48 10:35 Chief complaint: EMS states: not feeling well X 2 days iw 10:48 10:35 Chief complaint: EMS states: not feeling well X 2 days iw
[2020-05-28 01:29] VITALS: TEMP 98.8; O2SAT 99
[2020-05-28 01:31] VITALS: BP 163/82
== END 2020-05-27 13:13 | disposition home or self-care (01) ==
LOC: ER 10:28
DX: R53.1 Weakness (principal); I10 Essential (primary) hypertension; Z86.73 Personal history of transient ischemic attack (TIA), and cerebral infarction without residual deficits; Z88.5 Allergy status to narcotic agent; Z88.6 Allergy status to analgesic agent; Z88.8 Allergy status to other drugs, medicaments and biological substances
CPT/HCPCS: 36415; 70450; 71045; 80053; 81003; 83605; 85025; 99283

== ENCOUNTER 2020-07-24 10:53 | Emergency (ER) | payer OTHER ==
--- OUTSIDE RECORDS SUMMARY | 2020-07-24 10:55 | XMS REPORT | Clinical Summary ---
:1940 Author Organization [facility] Address [address] [place] [address] Care Team Providers Name Role Phone MD Jourdan Primary Care Provider Paul Sánchez Unavailable Allergies Active Allergy Reactions Severity Noted Date Comments Codeine Other (See Comments) 09/08/2019 dizzine ss Hydrocodone-Acetaminophen Other (See Comments) 018 hyperactivity Lisinopril 04/13/2018 angioedema Butorphanol Tartrate Other (See Comments) 04/14/2018 Hallucinations Cqmwzct-Agl-Crk Reductase Other (See Comments) 018 Flu like symptoms Inhibitors Medications Medication Sig Dispensed Refills Start Date End Date Status ALPRAZolam (XANAX) Take 0.5 mg 0 Active 0.5 MG tablet by mouth 3 (three) times daily as needed for Anxiety. PARoxetine (PAXIL) Take 10 mg 0 Active 10 MG tablet by mouth every morning. loratadine Take 10 mg 0 Active (CLARITIN) 10 mg by mouth tablet daily. famotidine (PEPCID) Take 20 mg 0 Active 20 MG tablet by mouth daily. triamcinolone 2 sprays by 0 Acti ve (NASACORT) 55 mcg Nasal route nasal inhaler daily. acetaminophen Take 2 30 tablet 0 04/19/2018 Activ e (TYLENOL) 325 MG tablets (650 tablet mg total) by mouth every 6 (six) hours as needed for Fever. pantoprazole Take 40 mg 0 Active (PROTONIX) 40 MG by mouth tablet daily. cloNIDine HCl Take 0.1 mg 0 Acti ve (CATAPRES) 0.1 MG by mouth 3 tablet (three) times daily as needed. metoprolol Take 25 mg 0 Disconti nued (TOPROL-XL) 25 MG by mouth 9 (S top Taking at 24 hr tablet daily. Dischar ge) pentoxifylline Take 400 mg 0 Dis continued (TRENTAL) 400 mg CR by mouth 3 9 (Stop Taking at tablet (three) Discharge) times daily with meals. cloNIDine Place 1 4 patch 0 09/15/2019 (CATAPRES-TTS) 0.2 patch onto 0 mg/24 hr patch the skin once a week for 28 days. metoprolol Take 1 60 tablet 1 09/12/2019 (LOPRESSOR) 50 MG tablet (50 0 tablet mg total) by mouth 2 (two) times daily for 60 days. amLODIPine Take 1 30 tablet 1 09/12/2019 (NORVASC) 10 MG tablet (10 0 tablet mg total) by mouth daily for 60 days. traMADol (ULTRAM) Take 1 30 tablet 0 09/12/2019 E xpired 50 mg tablet tablet (50 9 mg total) by mouth every 6 (six) [...] At high risk for hemodynamic instability ; Thomas, H/O endovascuiesha r stent graft for abdominal aortic aneurysm MD Randall 09/08/2019 Travel after 07/24/2019 Social History Tobacco Use Types Packs/Day Years Used Date Former Smoker Smokeless Tobacco: Never Used Alcohol Use Drinks/Week oz/Week Comments No Sex Assigned at Date Recorded Not on file Last Filed Vital Signs Vital Sign Reading Time Taken Comments Blood Pressure 178/89 09/13/2019 7:[address] [facility] Pulse 78 09/13/2019 7:[address] [facility] Temperature 35.8 C (96.4 F) 09/13/2019 7:[address] [facility] Respiratory Rate 18 09/13/2019 10:[address] [facility] Oxygen Saturation 94% 09/13/2019 7:[address] [facility] Inhaled Oxygen Concentration 21% 09/11/2019 8:[address] [facility] Weight 42.2 kg (93 lb 0.6 oz) 09/08/2019 4:[address] [facility] Height 167.6 cm (5' 6") 09/08/2019 4:[address] [facility] Body Mass Index 15.02 09/08/2019 4:[address] [facility] Plan of Treatment Health Maintenance Due Date Last Done Comments PNEUMOCOCCAL 65+ YRS (1 of 1 - [id number]) 2007 MEDICARE ANNUAL WELLNESS (YEAR 2 or FIRST YEAR if no 02/20/2008 IPPE) INFLUENZA VACCINE (#1) 2020 Implants Implanted Type Area Knot Tying Operator Device Shelf Model / Identifier Expiration Serial / Date Lot Zbigniew Iliac Aaa Leg 13x90 [id number] - [id number] CV Aneurysm Right: CO OK:AORTIC 10/13/2020 [id number] / Implanted: Qty: 1 on 04/15/2018 by Arnaldo Herrmann MD at [facility] Groin INTERVENTION / [id number] Description:Left Iliac Closure Sys Perclose Progl 6fr 71330-31 - [id number] Cardiovascul ar Left: Groin WANG LAB:VASC 11/18/2019 [id number] / Implanted: Qty: 1 on 04/15/2018 by Arnadlo Herrmann MD at [facility] DEV / [id number] Closure Sys Perclose Progl 6fr 36549-11 - [id number] Cardiovascul ar Left: Groin WANG LAB:VASC 01/18/2020 [id number] / Implanted: Qty: 1 on 04/15/2018 by Arnaldo Herrmann MD at [facility] DEV / [id number] Closure Sys Perclose Progl 6fr 00279-65 - [id number] Cardiovascul ar Right: Groin WANG LAB:VASC 11/18/2019 [id number] / Implanted: Qty: 1 on 04/15/2018 by Arnaldo Herrmann MD at [facility] DEV / [id number] Closure Sys Perclose Progl 6fr 13686-88 - [id number] Cardiovascul ar Right: Groin WANG LAB:VASC 11/18/2019 [id number] / Implanted: Qty: 1 on 04/15/2018 by Arnaldo Herrmann MD at [facility] DEV / [id number] Aaa Endovascular Graft N/A: [facility] 05/2020 [id number] / Implanted: Qty: 1 on 04/15/2018 by Arnaldo Herrmann MD at [facility] / [id number] Description:Main Body Aaa Iliac Leg Graft Right: [facility] 12/19 [id number] / Implanted: Qty: 1 on 04/15/2018 by Arnaldo Herrmann MD at [facility] / Description:Right common Iliac Procedures Procedure Name Priority Date/Time Associated Comments Diagnosis RHYTHM STRIP - SCAN 09/15/2019 5:[address] [facility] POCT-GLUCOSE METER Routine 09/13/2019 8:24 AM Re sults for this COURT [facility] procedure are i n the results section. POCT-GLUCOSE METER Routine 09/12/2019 9:03 PM Re sults for this COURT [facility] procedure are i n the results section. POCT-GLUCOSE METER Routine 09/12/2019 4:56 PM Re sults for this COURT [facility] procedure are i n the results section. POCT-GLUCOSE METER Routine 09/12/2019 12:26 PM Re sults for this COURT [facility] procedure are i n the results section. TROPONIN I Routine 09/12/2019 11:59 AM Results for this COURT [facility] procedure are i n the results section. ECG 12-LEAD STAT 09/12/2019 10:20 AM Results for this COURT [facility] procedure are i n the results section. POCT-GLUCOSE METER Routine 09/12/2019 8:29 AM Re sults for this COURT [facility] procedure are i n the results section. TROPONIN I Routine 09/12/2019 4:46 AM Results for this COURT [facility] procedure are i n the results section. POCT-GLUCOSE METER Routine 09/11/2019 8:56 PM Re sults for this COURT [facility] procedure are i n the results section. POCT-GLUCOSE METER Routine 09/11/2019 5:16 PM Re sults for this COURT [facility] procedure are i n the results section. POCT-GLUCOSE METER Routine 09/11/2019 1:36 PM Re sults for this COURT [facility] procedure are i n the results section. CT BRAIN WITHOUT IV STAT 09/11/2019 12:28 PM R esults for this CONTRAST COURT [facility] procedure are i n the results section. ECG 12-LEAD STAT 09/11/2019 11:25 AM Results for this COURT [facility] procedure are i n the results section. POCT-GLUCOSE METER Routine 09/11/2019 7:57 AM Re sults for this COURT [facility] procedure are i n the results section. POCT-GLUCOSE METER Routine 09/10/2019 9:47 PM Re sults for this COURT [facility] procedure are i n the results section. POCT-GLUCOSE METER Routine 09/10/2019 5:33 PM Re sults for this COURT [facility] procedure are i n the results section. POCT-GLUCOSE METER Routine 09/10/2019 12:28 PM Re sults for this COURT [facility] procedure are i n the results section. POCT-GLUCOSE METER Routine 09/10/2019 10:55 AM Re sults for this COURT [facility] procedure are i n the results section. POCT-GLUCOSE METER Routine 09/09/2019 8:50 PM Re sults for this COURT [facility] procedure are i n the results section. POCT-GLUCOSE METER Routine 09/09/2019 12:33 PM Re sults for this COURT [facility] procedure are i n the results section. POTASSIUM Routine 09/09/2019 12:25 PM Results for this COURT [facility] procedure are i n the results section. MAGNESIUM Routine 09/09/2019 12:25 PM Results for this COURT [facility] procedure are i n the results section. POCT-GLUCOSE METER Routine 09/09/2019 9:17 AM Re sults for this COURT [facility] procedure are i n the results section. CBC (HEMOGRAM ONLY) Routine 09/09/2019 3:35 AM R esults for this COURT [facility] procedure are i n the results section. PHOSPHORUS Routine 09/09/2019 3:35 AM Results for this COURT [facility] procedure are i n the results section. MAGNESIUM Routine 09/09/2019 3:35 AM Results for this COURT [facility] procedure are i n the results section. BASIC METABOLIC Routine 09/09/2019 3:35 AM Resul ts for this PANEL (7) COURT [facility] procedure are i n the results section. POCT-GLUCOSE METER Routine 09/08/2019 6:29 PM Re sults for this COURT [facility] procedure are i n the results section. CT BRAIN WITHOUT IV [place] 09/08/2019 4:13 PM R esults for this CONTRAST COURT [facility] procedure are i n the results section. POCT-GLUCOSE METER Routine 09/08/2019 1:25 PM Re sults for this COURT [facility] procedure are i n the results section. POCT-GLUCOSE METER Routine 09/08/2019 11:35 AM Re sults for this COURT [facility] procedure are i n the results section. HEPATIC FUNCTION Routine 09/08/2019 6:09 AM Resu lts for this PANEL COURT [facility] procedure are i n the results section. after 07/24/2019 Results RHYTHM STRIP - SCAN (09/15/2019 5:[address] [facility]) Narrative Performed At This result has an attachment that is no t available. POC-Glucose meter (09/13/2019 8:[address] [facility])Only the most recent of19 results within the time period is included. POC-Glucose Meter 194 (H)Comment: : 70 - [address] [facility] Notified RN/MD: mg/dL [facility] TESTED AT [address], [address]: Dressmaker Garment Fitter/Technicia n ID = [id number] for RASHAUN RAMIREZ Specimen Blood Performing Organization Address City/State/Zipcode Phone Number [facility] [address] [place] [phone] CENTER Troponin I (09/12/2019 11:[address] [facility])Only the most recent of2 resultswithin the time period is included. Pathologist Sig nature Troponin I <0.01 0.00 - 0.03 ng/mL [facility] Specimen Blood Narrative Performed At Troponin I (TnI) levels must be interpreted [facility] in the context of the presenting symptoms [...] disease, and persistent tachyarrhythmia. Performing Organization Address City/State/Zipcode Phone Number [facility] [address] [place] [address] CENTER ECG 12 lead (09/12/2019 10:[address] [facility])Only the most recent of2 resultswithin the time period is included. Specimen Narrative Performed At Ventricular Rate 87 BPM GE MUSE Atrial Rate 87 BPM P-R Interval 208 ms QRS Duration 80 ms Q-T Interval 368 ms QTC Calculation(Bazett) 442 ms P Mounds 44 degrees R Mounds -30 degrees T Mounds 71 degrees Normal sinus rhythm Left axis [...] no longer use d Confirmed by MD BOB, MICKY ([id number]) on 09/12/2019 3:55:11 PM Procedure Note Interface, External Ris In - 09/12/2019 3:[address] [facility] Ventricular Rate 87 BPM Atrial Rate 87 BPM P-R Interval 208 ms QRS Duration 80 ms Q-T Interval 368 ms QTC Calculation(Bazett) 442 ms P Mounds 44 degrees R Mounds -30 degrees T Mounds 71 degrees Normal sinus rhythm Left axis [...] on 09/12/2019 3:55:11 PM Performing Organization Address City/[facility]/Zipcode Phone Number Major Aide MUSE CT brain without IV contrast (09/11/2019 12:[address] [facility])Only the most recent of2 resultswithin the time period is included. Specimen Narrative Performed At FINAL REPORT [facility] CT, BRAIN, WITHOUT CONTRAST CLINICAL INDICATION: follow up [facility], wo rsening headache COMPARISON: September 08, 2019 TECHNIQUE: Noncontrast axial CT imagin g of the brain and skull. DOSE REDUCTION: [...] Christopher Robert MD Report Verified Date/Time: 09/11/2019 12:30:54 Reading Location: [address] Procedure Note Interface, External Ris In - 09/11/2019 12:[address] [facility] FINAL REPORT CT, BRAIN, WITHOUT CONTRAST CLINICAL [...] Verified Date/Time: 09/11/2019 1 2:30:54 Reading Location: [address] Room Performing Organization Address City/State/Zipcode Phone Number GE RIS Potassium (09/09/2019 12:[address] [facility]) [facility] Potassium 3.7 3.5 - 5.1 meq/L [facility] Specimen Blood Narrative Performed At Check Serum Potassium level 2 hours after [facility] oral potassium replacement completed or 30 min after intravenous potassium replacement. Performing Organization Address City/State/Zipcode Phone Number [address] [phone] CENTER Magnesium (09/09/2019 12:[address] [facility])Only the most recent of2 resultswithin the time period is included. Pathologist Sig nature Magnesium 2.3 1.6 - 2.6 mg/dL [facility] Specimen Blood Narrative Performed At Check Serum Potassium level 2 hours after [facility] oral potassium replacement completed or 30 min after intravenous potassium replacement. Performing Organization Address City/[facility] Phone Number [address] [phone] [place] CBC (Hemogram only) (09/09/2019 3:[address] [facility]) Pathologist Sig nature WBC 9.5 3.5 - 10.5 K/L [facility] RBC 4.40 3.93 - 5.22 M/L [facility] Hemoglobin 10.9 (L) 11.2 - 15.7 GM/DL [facility] Hematocrit 34.9 34.1 - 44.9 % [facility] MCV 79.3 (L) 79.4 - 94.8 fL [facility] MCH 24.8 (L) 25.6 - 32.2 pg [facility] MCHC 31.2 (L) 32.2 - 35.5 GM/DL [facility] RDW 19.2 (H) 11.7 - 14.4 % [facility] Platelets 236 150 - 450 K/CU MM [facility] MPV 9.2 (L) 9.4 - 12.3 fL [facility] nRBC 0 0 - 0 /100 WBC [facility] Specimen Blood Performing Organization Address City/State/Zipcode Phone Number [address] [address] CENTER Phosphorus (09/09/2019 3:[address] [facility]) Pathologist Sig nature Phosphorus 2.9 2.3 - 4.7 mg/dL [facility] Specimen Blood Narrative Performed At Once on admission and Daily AM afterward s [facility] Once on admission and Daily AM afterward s Once on admission and Daily AM afterwards Performing Organization Address City/[facility] Phone Number [address] [phone] [place] Basic Metabolic Panel (09/09/2019 3:[address] [facility]) Sodium 140 136 - 145 meq/L [facility] Potassium 3.6 3.5 - 5.1 meq/L [facility] Chloride 106 98 - 107 meq/L [facility] CO2 25 22 - 29 meq/L [facility] BUN 13 7 - 21 mg/dL [facility] Creatinine 0.78 0.57 - 1.25 [facility] mg/dL [facility] Glucose 178 (H) 70 - 105 mg/dL [facility] Calcium 9.1 8.4 - 10.2 [facility] mg/dL [facility] EGFR 72Comment: ESTIMATED mL/min/1.73 sq [facility] GFR IS NOT m [facility] [place] CREATININE CLEARANCE IN PREDICTING GLOMERULAR FILTRATION RATE. ESTIMATED GFR IS NOT APPLICABLE FOR DIALYSIS PATIENTS. Specimen Blood Narrative Performed At Once on admission and Daily AM afterward s [facility] Once on admission and Daily AM afterward s Once on admission and Daily AM afterwards Performing Organization Address City/State/Zipcode Phone Number [facility] [address] [place] [phone] [place] Hepatic function panel (09/08/2019 6:[address] [facility]) Pathologist Sig nature Protein, Total 7.5 6.0 - 8.3 gm/dL [facility] Albumin 4.0 3.5 - 5.0 g/dL [facility] Total Bilirubin 0.6 0.2 - 1.2 mg/dL [facility] Bilirubin, Direct 0.2 0.1 - 0.5 mg/dL [facility] Alkaline Phosphatase 163 (H) 40 - 150 U/L [facility] AST 22 5 - 34 U/L [facility] ALT 18 6 - 55 U/L [facility] Specimen Blood Performing Organization Address City/State/Zipcode Phone Number [facility] [address] [place] [address] [place] after 07/24/2019 Insurance Payer Benefit Plan / Subscriber ID Effective Dates Phone Addre ss Type Group MEDICARE MEDICARE A B [id number] 2007-Present Medicare [employer] [id number] 2011-Present Medigap SUPPLEMENT/INDIV IDUAL Advance Directives For more information, please contact: [phone] Code Status Date Activated Date Inactivated Comments Full Code 09/08/2019 4:26 AM 09/13/2019 3:28 PM This code status was determined by: Patient Full Code 04/15/2018 10:55 AM 04/19/2018 6:23 PM This code status was determined by: Patient Full Code 04/15/2018 6:03 AM 04/15/2018 10:55 AM This code status was determined by: Patient
--- OUTSIDE RECORDS SUMMARY | 2020-07-24 10:56 | XMS REPORT | Continuity of Care Document ---
:1940 Author Organization [facility] t Address [address] [place] [address] Care Team Providers Name Role Phone Jourdan LIANG Primary Care Physician Leandro Tamez MD Attending Clinician Sarita LIANG Attending Clinician Thomas LIANG Attending Clinician LEANDRO TAMEZ Attending Clinician Unavailable TK ANN Attending Clinician Unavailable LEANDRO TAMEZ Admitting Clinician Unavailable TK ANN Admitting Clinician Unavailable Payers Payer Name Policy Type Policy Effective Date Expiration Date Sour ce Number MEDICAREMEDICARE A [id number] 2007 MONICA Ann [id number] 2006-P 00:00:00 - Medical [facility] MCR [id number] 2011 MONICA Moreno SUPPLEMENT/INDIVIDUALM 00:00:00 - [id number]- PresentMedigap Problems Condition Condition Condition Status Onset Resolution [...] 2-20 Adelaida kes - 00:00: Medical 00 [place] Abdominal Abdominal Disease Active [facility] aortic [...] At high At high Disease Active [facility] for 04[facility]15 [facility] - [...] 2018-[address] Allergy Comments) 2-20 [facility] - 00:00: Medical 00 [place] Butorpha Propensi Active Other (See Hallucina [facility] nol ty to Comments) 7-26 tions [facility] - Tartrate adverse 00:00: Medical reaction 00 [place] s Statins- Propensi Active Other (See Flu like [facility] Hmg-Coa ty to Comments) 7-26 symptoms Luke [facility] - Reductas adverse 00:00: Medical e reaction 00 [place] Inhibito s rs Hydrocod Propensi Active Other (See hyperacti [facility] one-Acet ty to Comments) 7-25 vity [facility] - aminophe adverse 00:00: Medical n reaction 00 [place] s Lisinopr Propensi Active angioedem [facility] il ty to 7-25 a [facility] - adverse 00:00: Medical reaction 00 [place] s Social History Social Habit Start Date Stop Date Quantity Comments Source Sex Assigned At [facility] Tobacco use and 2019-09-08 2019-09-08 Never used [facility] - exposure 00:00:00 00:00:00 [facility] Alcohol intake 2019-09-08 2019-09-08 Current [facility] es - 00:00:00 00:00:00 non-drinker of Medical Ce nter alcohol (finding) Smoking Status Start Date Stop Date Source Former smoker 2019-09-08 00:00:00 2019-09-08 00:00:[address] [facility] Medications Ordered Filled Start Stop Current Ordering Indication Dosage Frequency Signature Comments Components Source Medication Medication Date Date Medication? Clinician (SIG) Name Name cloNIDine 2018-09 2020- No 1{patch Q7D Place [address] (CATAPRES-T 11-16 } patch onto L [facility] - TS) 0.2 00:00: 23:59 the skin Medic al mg/24 hr 00 :00 once a Center patch week for 28 days. ALPRAZolam 2018-09 Yes .5mg Take 0.[address] (XANAX) 0.5 2-25 mg by [facility] - MG tablet 13:28: mouth 3 Medic al 37 (three) Center times daily as needed for Anxiety. PARoxetine 2018-09 Yes 10mg QD Take [address] (PAXIL) 10 2-25 by mouth [facility] - MG tablet 13:28: every Medical 37 morning. [place] loratadine 2018-09 Yes 10mg QD Take [address] (CLARITIN) 2-25 by mouth [facility] - 10 mg 13:28: daily. Medical tablet 37 Center famotidine 2018-09 Yes 20mg QD Take [address] (PEPCID) 20 2-25 by mouth Luke s - MG tablet 13:28: daily. Medica l 37 Center triamcinolo 2018-09 Yes 2{spray QD [address] ne 2-25 } by Nasal [facility] - (NASACORT) 13:28: route Medica l 55 mcg 37 daily. Center nasal inhaler pantoprazol 2018-09 Yes 40mg QD Take [address] e 2-25 by mouth [facility] - (PROTONIX) 13:28: daily. Medic al 40 MG 37 Center tablet cloNIDine 2018-09 Yes .1mg Take 0.[address] HCl 2-25 mg by [facility] - (CATAPRES) 13:28: mouth 3 Medi pura 0.1 MG 37 (three) Center tablet times daily as needed. metoprolol 2018-09 2019- No 25mg QD Take [address] (TOPROL-XL) 2-24 12-24 by mouth Fady es - 25 MG 24 hr 08:34: 00:00 daily. Med ical tablet 39 :00 Center pentoxifyll 2018-09- No 400mg Take [address] ine 2-24 12-24 mg by [facility] - (TRENTAL) 08:34: 00:00 mouth 3 Medi pura 400 mg CR 39 :00 (three) Center tablet times daily with meals. metoprolol 2018-09- No 50mg Q.5D Take [address] (LOPRESSOR) 11-13- tablet (50 L ukes - 50 MG 00:00: 23:59 mg total) Medica l tablet 00 :00 by mouth 2 Center (two) times daily for 60 days. amLODIPine 2018-09- No 10mg QD Take [address] (NORVASC) 11-13- tablet (10 Fady es - 10 MG 00:00: 23:59 mg total) Medica l tablet 00 :00 by mouth Center daily for 60 days. traMADol 2018-09 No 50mg Take [address] (ULTRAM) 50 2-24 12-31 tablet (50 L ukes - mg tablet 00:00: 23:59 mg total) Me dical 00 :00 by mouth Center every 6 (six) hours as needed for up to 7 days. Max Daily Amount: 200 mg acetaminoph Yes 650mg Take [address] en 7-31 tablets [facility]ukes - (TYLENOL) 00:00: (650 mg Medic al 325 MG 00 total) by Center tablet mouth every 6 (six) hours as needed for Fever. Vital Signs Vital Name Observation Time Observation Value Comments Source Respiratory rate 2019-09-13 10:29:00 18 /min [facility] Systolic blood 2019-09-13 07:40:00 178 mm[Hg] NOTIFIED MIRIAM Mcgee [facility] Diastolic blood 2019-09-13 07:40:00 89 mm[Hg] NOTIFIED MIRIAM solomon [facility] Heart rate 2019-09-13 07:40:00 78 /min [facility] Body temperature 2019-09-13 07:40:00 35.78 Melissa [facility] Oxygen saturation in 2019-09-13 07:40:00 94 /min [facility] - Arterial blood by Medical Ce nter Pulse oximetry Body height 2019-09-08 04:15:00 167.6 cm [facility] Body weight 2019-09-08 04:15:00 42.2 kg [facility] BMI 2019-09-08 04:15:00 15.02 kg/m2 [facility] Procedures Procedure Date / Time Performed Performing Clinician [facility] RHYTHM STRIP - SCAN 2019-09-15 17:51:45 Provider, Patrica [facility] POCT-GLUCOSE METER 2019-09-13 08:24:00 [facility] POCT-GLUCOSE METER 2019-09-12 21:03:00 [facility] POCT-GLUCOSE METER 2019-09-12 16:56:00 [facility] POCT-GLUCOSE METER 2019-09-12 12:26:00 Thomas [facility] TROPONIN I 2019-09-12 11:59:00 Thomas [facility] ECG 12-LEAD 2019-09-12 10:20:30 Thomas [facility] POCT-GLUCOSE METER 2019-09-12 08:29:00 Thomas [facility] TROPONIN I 2019-09-12 04:46:00 Thomas [facility] POCT-GLUCOSE METER 2019-09-11 20:56:00 Thomas [facility] POCT-GLUCOSE METER 2019-09-11 17:16:00 [facility] POCT-GLUCOSE METER 2019-09-11 13:36:00 Thomas [facility] CT BRAIN WITHOUT IV 2019-09-11 12:28:00 Thomas [facility] ECG 12-LEAD 2019-09-11 11:25:38 Thomas [facility] POCT-GLUCOSE METER 2019-09-11 07:57:00 Bibi Guzmaneraj [facility] POCT-GLUCOSE METER 2019-09-10 21:47:00 Sarita [facility] POCT-GLUCOSE METER 2019-09-10 17:33:00 Sarita [facility] POCT-GLUCOSE METER 2019-09-10 12:28:00 Sarita [facility] POCT-GLUCOSE METER 2019-09-10 10:55:00 Sarita [facility] POCT-GLUCOSE METER 2019-09-09 20:50:00 Sarita [facility] POCT-GLUCOSE METER 2019-09-09 12:33:00 [facility] 2019-09-09 12:25:00 Yamilka Irene [facility] POTASSIUM 2019-09-09 12:25:00 Yamilka Irene [facility] POCT-GLUCOSE METER 2019-09-09 09:17:00 Dashawn [facility] BASIC METABOLIC PANEL 2019-09-09 03:35:[address] [facility] MAGNESIUM 2019-09-09 03:35:00 Yamilka Irene [facility] PHOSPHORUS 2019-09-09 03:35:00 Yamilka Irene [facility] CBC (HEMOGRAM ONLY) 2019-09-09 03:35:00 Yamilka Irene [facility] POCT-GLUCOSE METER 2019-09-08 18:29:00 [facility] CT BRAIN WITHOUT IV 2019-09-08 16:13:00 Álvaro Pérez [facility] POCT-GLUCOSE METER 2019-09-08 13:25:00 [facility] POCT-GLUCOSE METER 2019-09-08 11:35:00 Dashawn, Isra [facility] HEPATIC FUNCTION PANEL 2019-09-08 06:09:00 Yamilka Irene [facility] Plan of Care Planned Activity Planned Date Details Comments Source Future Scheduled 2020-05-21 INFLUENZA VACCINE (#1) [facility] Test 00:00:00 [code = INFLUENZA Medical Ce nter VACCINE (#1)] Future Scheduled 2008-02-[address] [facility] - Test 00:00:00 WELLNESS (YEAR 2 or Medical Center FIRST YEAR if no IPPE) [code = MEDICARE ANNUAL WELLNESS (YEAR 2 or FIRST YEAR if no IPPE)] Future Scheduled 2007 PNEUMOCOCCAL 65+ YRS [facility] - Test 00:00:00 (1 of 1 - [facility] [id number] PCV13) [code = PNEUMOCOCCAL 65+ YRS (1 of 1 - [id number] PCV13)] Results Test Description Test Time Test Comments Results Result Comments Source POC-Glucose meter 2019-09-13 08:37:00 Test Item Value Reference Range Interpretation Comme [facility] POC-Glucose Meter (test code = 194 mg/dL 70-110 H : Notified RN/MD: TESTED AT [facility] 1538) [address] [place] [address], [address]: Lead Cook/Techni chalino ID = [id number] for TSEGGAI, MARYE REDA Lab Interpretation (test code = Abnormal 70890-2) [facility] [id number] 08:37:00 Test Item Value Reference Range Interpretation Comments POC-GLUCOSE METER 194 mg/dL 70-110 H : Notified RN/MD: TESTED (GAMA) (test code AT [facility] [address] [facility] = 1538) [facility] [address]: Lead Cook/Techni chalino ID = [id number] for TSEG GAI, TSIGHEREDA POCT-GLUCOSE [id number] 21:14:00 Test Item Value Reference Range Interpretation Comments POC-GLUCOSE METER 232 mg/dL 70-110 H : Notified RN/MD: (GAMA) (test code = TESTED AT [facility] 67[address] 1538) [facility], [address]: Lead Cook/Techni chalino ID = [id number] for JOELRIDJUANITA LOMAX ICE POCT-GLUCOSE [id number] 17:08:00 Test Item Value Reference Range Interpretation Comments POC-GLUCOSE METER 210 mg/dL 70-110 H : TESTED A T [facility] 6720 (BEAKER) (test code [facility], = 1538) [address]: Lead Cook/Techni chalino ID = [id number] for LUIS ANTONIO MARTINIA ECG 12 [id number] 15:55:15Interface, External Ris In - 09/12/2019 3:55 PM CSTVentricular Rate 87 BPMAtrial Rate 87 BPMP-R Interval 208 msQRS Duration 80 msQ-T Interval 368 msQTC Calculation(Bazett) 442 msP [place] 44 degreesR [place] -30 degreesT [place] 71 degreesNormal sinus rhythmLeft axis deviationModerate voltage criteria for LVH, may be normal variantCannot rule out anteroapical infarct 11 Sep 2019Inferior infarct (cited on or before 14-APR-2018)Abnormal ECGWhen compared with ECG of 11-SEP-2019 11:25,Borderline criteria for Lateral infarct are no longer Present v ersus right precordial leads are no longer usedConfirmed by MD BOB, MICKY ([id number]) on 09/12/2019 3:55:11 [facility] [id number] 12:37:00 Test Item Value Reference Range Interpretation Comments POC-GLUCOSE METER 206 mg/dL 70-110 H : TESTED A T [facility] 6720 (BEAKER) (test code [facility], = 1538) [address]: Lead Cook/Techni chalino ID = [id number] for RASHAUN MARTINI Troponin [id number] 12:31:00 Test Item Value Reference Range Interpretation Comments Troponin I (test code = <0.01 0-0.03 95079-3) DEVI (test code = DEVI) Troponin I [...] tachyarrhythmia. Lab Interpretation (test Normal code = 19916-7) [facility] [id number] 12:31:00 Test Item Value Reference Range Interpretation [...] acidosis, acute neurological disease, and persistent tachyarrhythmia.POCT-GLUCOSE [id number] 08:45:00 Test Item Value Reference Range Interpretation Comments POC-GLUCOSE METER 194 mg/dL 70-110 H : Notified RN/MD: TESTED (GAMA) (test code AT [facility] [address] [facility] [address]: Lead Cook/Techni chalino ID = [id number] for RASHAUN MARTINI TROPONIN [id number] 06:15:00 Test Item Value Reference Range Interpretation [...] acidosis, acute neurological disease, and persistent tachyarrhythmia.POCT-GLUCOSE [id number] 21:12:00 Test Item Value Reference Range Interpretation Comments POC-GLUCOSE METER 229 mg/dL 70-110 H : TESTED A T [facility] 6720 (BEAKER) (test code = [place] [facility], 1538) [address]: Lead Cook/Techni chalino ID = [id number] for DE NNCARLOS, DINO POCT-GLUCOSE [id number] 17:27:00 Test Item Value Reference Range Interpretation Comments POC-GLUCOSE METER 148 mg/dL 70-110 H : Notified RN/MD: (GAMA) (test code = TESTED AT [facility] 67[address] 1538) [facility], [address]: Lead Cook/Techni chalino ID = [id number] for JD MENDEZ POCT-GLUCOSE [id number] 13:47:00 Test Item Value Reference Range Interpretation Comments POC-GLUCOSE METER 252 mg/dL 70-110 H : TESTED A T [facility] 6720 [facility] (test code = [place], 1538) [address]: Lead Cook/Techni chalino ID = [id number] for FLY SOLIS CT, BRAIN, WITHOUT [id number] 12:30:00FINAL REPORT CT, BRAIN, WITHOUT CONTRAST CLINICAL [...] MDReport Verified Date/Time: 09/11/2019 12:30:54 Reading Location: [address] Neuro Reading Room CT brain without IV [id number] 12:30:00Interface, External Ris In - 09/11/2019 12:33 [...] MDReport Verified Date/Time: 09/11/2019 12:30:54 Reading Location: [facility] C013V Neuro Reading Room [facility] [id number] 08:09:00 Test Item Value Reference Range Interpretation Comments POC-GLUCOSE METER 193 mg/dL 70-110 H : Notified RN/MD: ([facility] (test code = TESTED AT [facility] 67[address] 1538) [facility], [address]: Lead Cook/Techni chalino ID = [id number] for OK ELLO, GORETI POCT-GLUCOSE [id number] 22:01:00 Test Item Value Reference Range Interpretation Comments POC-GLUCOSE METER 251 mg/dL 70-110 H : Notified RN/MD: (GAMA) (test code = TESTED AT [facility] 67[address] 1538) [facility], [address]: Lead Cook/Techni chalino ID = [id number] for LATHBRIDGE, JUANITA ICE POCT-GLUCOSE [id number] 18:45:00 Test Item Value Reference Range Interpretation Comments POC-GLUCOSE METER 192 mg/dL 70-110 H : TESTED A T [facility] 6720 (BEAKER) (test code = [facility], 1538) [address]: Lead Cook/Techni chalino ID = [id number] for CA BALLERO, FLY POCT-GLUCOSE [id number] 12:40:00 Test Item Value Reference Range Interpretation Comments POC-GLUCOSE METER 198 mg/dL 70-110 H : TESTED A T [facility] 6720 (BEAKER) (test code = [facility], 1538) [address]: Lead Cook/Techni chalino ID = [id number] for CA BALLERO, FLY POCT-GLUCOSE [id number] 11:07:00 Test Item Value Reference Range Interpretation Comments POC-GLUCOSE METER 223 mg/dL 70-110 H : TESTED A T [facility] 6720 (BEAKER) (test code = [facility], 1538) [address]: Lead Cook/Techni chalino ID = [id number] for CA BALLERO, FLY POCT-GLUCOSE [id number] 21:01:00 Test Item Value Reference Range Interpretation Comments POC-GLUCOSE METER 284 mg/dL 70-110 H : TESTED A T [facility] 6720 (BEAKER) (test code = [facility] [facility], 1538) [address]: Lead Cook/Techni chalino ID = [id number] for EULALIA RAMSEY [id number] 13:03:00 Test Item Value Reference Range Interpretation Comments Magnesium (test code = 2.3 mg/dL 1.6-2.6 75219-6) DEVI (test code = DEVI) Check Serum Potassium level 2 hours after oral potassium replacement completed or 30 min after intravenous potassium replacement. Lab Interpretation (test Normal code = 92069-8) [facility] Center[facility] 13:03:00 Test Item Value Reference Range Interpretation Comments Potassium (test code = 3.7 meq/L 3.5-5.1 2823-3) DEVI (test code = DEVI) Check Serum Potassium level 2 hours after oral potassium replacement completed or 30 min after intravenous potassium replacement. Lab Interpretation (test Normal code = 47893-2) [facility]2019-12-21 13:03:00 Test Item Value Reference Range Interpretation Comments POTASSIUM (BEAKER) (test code = 3.7 meq/L 3.5-5.1 379) Check Serum Potassium level 2 hours after oral potassium replacement completed or 30 min after intravenous potassium replacement.[id number] 13:03:00 Test Item Value Reference Range Interpretation Comments MAGNESIUM (BEAKER) (test code = 2.3 mg/dL 1.6-2.6 627) Check Serum Potassium level 2 hours after oral potassium replacement completed or 30 min after intravenous potassium replacement.POCT-GLUCOSE [id number] 12:44:00 Test Item Value Reference Range Interpretation Comments POC-GLUCOSE METER 188 mg/dL 70-110 H : TESTED A T [facility] 6720 (BEAKER) (test code = [facility] [facility], 1538) [address]: Lead Cook/Techni chalino ID = [id number] for TAQUERIA MCNULTY POCT-GLUCOSE [id number] 09:29:00 Test Item Value Reference Range Interpretation Comments POC-GLUCOSE METER 179 mg/dL 70-110 H : Notified RN/MD: (GAMA) (test code = TESTED AT [facility] 67[address] 1538) [place], [address]: Lead Cook/Techni chalino ID = [id number] for ELZA RAO Basic Metabolic [id number] 04:17:00 Test Item Value Reference Range Interpretation Comments Sodium (test code = 140 meq/L 696-390 0002-2) Potassium (test code 3.6 meq/L 3.5-5.1 = 2823-3) Chloride (test code 106 meq/L 98-107 = 2075-0) CO2 (test code = 25 meq/L 22-29 2028-9) BUN (test code = 13 mg/dL 7- 3094-0) Creatinine (test 0.78 mg/dL 0.57-1.25 code = 2160-0) Glucose (test code = 178 mg/dL 70-105 H 2345-7) Calcium (test code = 9.1 mg/dL 8.4-10.2 54793-3) EGFR (test code = 72 mL/min/1.73 sq ESTIMATE D GFR 79559-5) m IS NOT ACCURATE CREATININE CLEARANCE IN PREDICTING GLOMERULAR FILTRATION RATE. ESTIMATED GFR IS NOT APPLICABLE FOR DIALYSIS PATIENTS. DEVI (test code = Once on admission DEVI) and Daily AM afterwardsOnce on admission and Daily AM afterwardsOnce on admission and Daily AM afterwards Lab Interpretation Abnormal (test code = 70750-4) [facility] Center[facility]osph[facility]2019-12-[facility] 04:17:00 Test Item Value Reference Range Interpretation Comments Phosphorus (test code = 2.9 mg/dL 2.3-4.7 2777-1) DEVI (test code = DEVI) Once on admission and Daily AM afterwardsOnce on admission and Daily AM afterwardsOnce on admission and Daily AM afterwards Lab Interpretation Normal (test code = 72157-5) [facility] CenterPHOSPH[facility]US2019-12-21 04:17:00 Test Item Value Reference Range Interpretation Comments PHOSPHORUS (BEAKER) (test code = 2.9 mg/dL 2.3-4.7 604) Once on admission and Daily AM afterwardsOnce on admission and Daily AM afterwardsOnce on admission and Daily AM [id number] 04:17:00 Test Item Value Reference Range Interpretation [...] 450 K/CU MM MPV (test code = 98164-5) 9.2 fL 9.4-12.3 L nRBC (test code = 413) 0 0- 0 /100 WBC Lab Interpretation (test code = Abnormal 16640-8) [facility] (HEMOGRAM ONLY)2019-09-09 03:55:00 Test Item Value Reference [...] 0-0 (BEAKER) (test code = 413) POCT-GLUCOSE [id number] 21:26:00 Test Item Value Reference Range Interpretation Comments POC-GLUCOSE METER 250 mg/dL 70-110 H : TESTED A T [facility] 6720 (BEAKER) (test code = [place], 1538) [address]: Lead Cook/Techni chalino ID = [id number] for An Yasmin julien CT, BRAIN, WITHOUT [id number] 17:20:00FINAL REPORT CT, BRAIN, WITHOUT CONTRAST INDICATION: [...] Suzie Farias Verified Date/Time: 09/08/2019 17:20:18 POCT-GLUCOSE [id number] 13:37:00 Test Item Value Reference Range Interpretation Comments POC-GLUCOSE METER 168 mg/dL 70-110 H : [facility] (Bringg) (test code = [facility], 1538) [address]: Lead Cook/Techni chalino ID = [id number] for An akArianna verdeia POCT-GLUCOSE [id number] 11:53:00 Test Item Value Reference Range Interpretation Comments POC-GLUCOSE METER 193 mg/dL 70-110 H : TESTED A T [facility] 6720 (Bringg) (test code = [facility], 1538) [address]: Lead Cook/Techni chalino ID = [id number] for LL OYD, TIKEYA Hepatic function [id number] 07:38:00 Test Item Value Reference Range Interpretation Comments Protein, Total (test code = 2885-2) 7.5 6.0- 8.3 gm/dL Albumin (test code = 64453-7) 4.0 g/dL 3.5-5 Total Bilirubin (test code = 0.6 mg/dL 0.2-1.2 1974-2) Bilirubin, Direct (test code = 0.2 mg/dL 0.1-0.5 1967-7) Alkaline Phosphatase (test code = 163 U/L 40-150 H 6768-6) AST (test code = 1920-8) 22 U/L 5-34 ALT (test code = 1742-6) 18 U/L 6-55 Lab Interpretation (test code = Abnormal 89929-7) [facility] Center[facility]AT[facility] FUNCTION [id number] 07:38:00 Test Item Value Reference Range Interpretation [...] 6-55 347) RAD, CHEST, 1 VIEW, NON [id number] 10:16:00Reason for exam:->S/P EVARShould this be performed [...] right chest skin fold is suspected. Signed: Matthieu,Visveshwar MDReport Verified Date/Time: 04/19/2018 10:16:05 Reading Location: [facility] Radiology Reading Room [id number] 05:21:00 Test Item Value Reference Range Interpretation Comments PHOSPHORUS (BEAKER) (test code = 4.0 mg/dL 2.3-4.7 604) [id number] 05:21:00 Test Item Value Reference Range Interpretation Comments MAGNESIUM (BEAKER) (test code = 2.2 mg/dL 1.6-2.6 627) BASIC METABOLIC [id number] 05:21:00 Test Item Value Reference Range Interpretation [...] S NOT APPLICABLE FOR DIALYSIS PATIEN TS. [id number] 04:58:00 Test Item Value Reference Range Interpretation Comments PARTIAL THROMBOPLASTIN TIME 36.6 seconds 22.5-36.0 H (BEAKER) (test code = 760) PROTHROMBIN [id number] 04:57:00 Test Item Value Reference Range Interpretation [...] = 413) RAD, CHEST, 1 VIEW, NON [id number] 08:00:00Reason for exam:->S/P EVARShould this be performed [...] MDReport Verified Date/Time: 04/18/2018 08:00:53 Reading Location: [facility] Reading Room [id number] 05:25:00 Test Item Value Reference Range Interpretation Comments PHOSPHORUS (BEAKER) (test code = 3.6 mg/dL 2.3-4.7 604) [id number] 05:25:00 Test Item Value Reference Range Interpretation Comments MAGNESIUM (BEAKER) (test code = 2.2 mg/dL 1.6-2.6 627) BASIC METABOLIC [id number] 05:25:00 Test Item Value Reference Range Interpretation [...] S NOT APPLICABLE FOR DIALYSIS PATIEN TS. [id number] 05:06:00 Test Item Value Reference Range Interpretation Comments PARTIAL THROMBOPLASTIN TIME 36.5 seconds 22.5-36.0 H (BEAKER) (test code = 760) PROTHROMBIN [id number] 05:05:00 Test Item Value Reference Range Interpretation [...] = 413) RAD, CHEST, 1 VIEW, NON [id number] 10:31:00Reason for exam:->S/P EVARShould this be performed at the bedside?->YesFINAL REPORT Chest, one view. HISTORY: Status post aortic repair COMPARISON: IMPRESSION: No significant change. Unchanged tortuosity and ectasia of the thoracic aorta.Mild interstitial edema. No large pleural effusion or pneumothorax. Signed: David, Gertrudis MDReport Verified Date/Time: 04/17/2018 10:31:41 Reading Location: [facility] B1 C013Y CT Body Reading Room [id number] 06:43:00 Test Item Value Reference Range Interpretation Comments PHOSPHORUS (BEAKER) (test code = 3.3 mg/dL 2.3-4.7 604) [id number] 06:43:00 Test Item Value Reference Range Interpretation Comments MAGNESIUM (BEAKER) (test code = 2.0 mg/dL 1.6-2.6 627) [id number] 06:23:00 Test Item Value Reference Range Interpretation Comments PARTIAL THROMBOPLASTIN TIME 36.4 seconds 22.5-36.0 H (BEAKER) (test code = 760) PROTHROMBIN TIME/[id number] 06:22:00 Test Item Value Reference Range Interpretation [...] = 413) RAD, CHEST, 1 VIEW, NON [id number] 09:02:00Reason for exam:->S/P EVARShould this be performed at the bedside?->YesFINAL REPORT Chest, one view. HISTORY: Status post aortic repair COMPARISON: IMPRESSION: No significant change. Unchanged tortuosity and ectasia of the thoracic aorta.Lungs clear without focal consolidation. No large pleural effusion or pneumothorax. Unchanged right apical pleural thickening. Partially visualized aortic stent graft in the abdominal aorta. Signed: Gertrudis Hebert MDReport Verified Date/Time: 04/16/2018 09:02:11 Reading Location: [address] Body Reading Room [id number] 06:11:00 Test Item Value Reference Range Interpretation Comments PHOSPHORUS (BEAKER) (test code = 1.9 mg/dL 2.3-4.7 L 604) [id number] 06:11:00 Test Item Value Reference Range Interpretation Comments MAGNESIUM (BEAKER) (test code = 2.0 mg/dL 1.6-2.6 627) BASIC METABOLIC [id number] 06:11:00 Test Item Value Reference Range Interpretation [...] S NOT APPLICABLE FOR DIALYSIS PATIEN TS. [id number] 05:46:00 Test Item Value Reference Range Interpretation Comments PARTIAL THROMBOPLASTIN TIME 32.0 seconds 22.5-36.0 (BEAKER) (test code = 760) PROTHROMBIN [id number] 05:45:00 Test Item Value Reference Range Interpretation [...] WBC 0-0 (BEAKER) (test code = 413) [id number] 13:56:00 Test Item Value Reference Range Interpretation Comments ACTIVATED CLOTTING TIME 257 sec TEST ED AT [facility] 67[address] ([facility]) (test code = [place] 441) [address] RAD, ABDOMEN/KUB, 1 VIEW [id number] 12:39:00Reason for exam:->Postop AAA FINAL REPORT CLINICAL [...] DavisMDReport Verified Date/Time: 04/15/2018 12:39:57 Reading Location: [facility] Radiology Reading Room RAD, CHEST, 1 VIEW, NON [id number] 12:38:00For chest painReason for exam:->post opShould this be performed at the bedside?->YesFINAL REPORT CLINICAL HISTORY: post op TECHNIQUE: 1 view of the chest. COMPARISON: 04/10/2018 IMPRESSION: There are no focal infiltrates or effusions. Cardiomegaly is again seen with tortuosity of the thoracic aorta. Signed: Hardik Davis MDRepyarely Verified Date/Time: 04/15/201812:38:40 Reading Location: [facility] Radiology Reading Room [id number] 11:51:00 Test Item Value Reference Range Interpretation Comments PHOSPHORUS (BEAKER) (test code = 3.2 mg/dL 2.3-4.7 604) BASIC METABOLIC [id number] 11:51:00 Test Item Value Reference Range Interpretation [...] PATIEN TS. CBC W/PLT COUNT & AUTO [id number] 11:23:00 Test Item Value Reference Range Interpretation [...] PERCENT (BEAKER) (test code = 2801) PROTHROMBIN [id number] 11:22:00 Test Item Value Reference Range Interpretation Comments PROTIME (BEAKER) (test code = 15.7 seconds 11.7-14.7 H 759) INR (BEAKER) (test code = 370) 1.3 <=5.9 RECOMMENDED COUMADIN/WARFARIN INR THERAPY RANGESSTANDARD DOSE: 2.0 - 3.0 Includes: PROPHYLAXIS forvenous thrombosis, systemic embolization; TREATMENT for venous thrombosis and/or pulmonary embolus.HIGH RISK: Target INR is 2.5-3.5 for patients with mechanical heart valves.CALCIUM, [id number] 11:06:00 Test Item Value Reference Range Interpretation Comments CALCIUM IONIZED (BEAKER) (test 1.25 mmol/L 1.12-1.27 code = 698) PH, BLOOD (BEAKER) (test code = 7.37 1810) HEPATITIS C [id number] 15:18:00 Test Item Value Reference Range Interpretation Comments HEPATITIS C ANTIBODY (BEAKER) Nonreactive Nonreactive (test code = 367) HEPATITIS B [id number] 15:18:00 Test Item Value Reference Range Interpretation Comments HEPATITIS B CORE TOTAL ANTIBODY Nonreactive Nonreactive (BEAKER) (test code = 497) HEPATITIS B SURFACE ANTIBODY 63.1 mIU/mL <8.0 H (BEAKER) (test code = 647) HEPATITIS B SURFACE ANTIGEN (2) Nonreactive Nonreactive (BEAKER) (test code = 2585) HIV-1 ANTIGEN WITH HIV-1/2 [id number] 15:18:00 Test Item Value Reference Range Interpretation Comments HIV-1 ANTIGEN WITH HIV 1\T\2 Nonreactive Nonreactive ANTIBODY (2) (BEAKER) (test code = 2586) [id number] 15:08:00 Test Item Value Reference Range Interpretation Comments LIPASE (BEAKER) (test code = 749) 10 U/L 8-78 [id number] 15:08:00 Test Item Value Reference Range Interpretation Comments AMYLASE (BEAKER) (test code = 349) 40 U/L 25-125 BASIC METABOLIC [id number] 15:08:00 Test Item Value Reference Range Interpretation [...] APPLICABLE FOR DIALYSIS PATIEN TS. HEPATIC FUNCTION [id number] 15:08:00 Test Item Value Reference Range Interpretation [...] 238 U/L 125-220 H code = 635) [id number] 14:47:00 Test Item Value Reference Range Interpretation Comments PARTIAL THROMBOPLASTIN TIME 31.9 seconds 22.5-36.0 (BEAKER) (test code = 760) PROTHROMBIN [id number] 14:46:00 Test Item Value Reference Range Interpretation Comments PROTIME (BEAKER) (test code = 14.1 seconds 11.7-14.7 759) INR (BEAKER) (test code = 370) 1.1 <=5.9 RECOMMENDED COUMADIN/WARFARIN INR THERAPY RANGESSTANDARD DOSE: 2.0 - 3.0 Includes: PROPHYLAXIS forvenous thrombosis, systemic embolization; TREATMENT for venous thrombosis and/or pulmonary embolus.HIGH RISK: Target INR is 2.5-3.5 for patients with mechanical heart valves.RETICULOCYTE [id number] 14:36:00 Test Item Value Reference Range Interpretation Comments RETICULOCYTE COUNT PCT (BEAKER) (test 1.0 % 0.5-1.7 code = 575) CBC W/PLT COUNT & AUTO [id number] 14:36:00 Test Item Value Reference Range Interpretation [...] (BEAKER) (test code = 2801) URINALYSIS W/ [id number] 14:25:00 Test Item Value Reference Range Interpretation [...] (test code = 2795) RAD, CHEST, 2 [id number] 14:12:00Reason for exam:->surgeryFINAL REPORT Chest, two views HISTORY: Surgery COMPARISON: None. DISCUSSION: Lungs are clear without focal consolidation. Cardiomediastinal silhouette is unremarkable. Tortuosityand ectasia of the thoracic aorta. No acute osseous abnormality. No pleural effusion or pneumothorax. Visualized portions of the upper abdomen are unremarkable. IMPRESSION: No acute cardiopulmonary abnormality. Signed: Gertrudis Hebert MDReport Verified Date/Time: 04/14/2018 14:12:09 Reading Location: [address] Radiology Reading Room 02:12 PM
--- NOTE | 2020-07-24 11:34 | RAD REPORT ---
EXAM DESCRIPTION: RAD - Chest Single View - 07/24/2020 11:22 am CLINICAL HISTORY: Chest pain;Dyspnea COMPARISON: Portable May 27, 2020 TECHNIQUE: AP portable chest image was obtained 07/24/2020 11:22 am . FINDINGS: Scattered interstitial fibrotic changes evident. This is not clearly different from the co mparison. A very minimal interstitial edema or infiltrate would be potentially mass. No consolidation , mass or failure findings. Heart and vasculature are normal. No measurable pleural effusion and no pneumothorax. No acute bony abnormality seen. Aortic dilatation and tortuosity match comparison. No suspicion for an acute aortic finding. IMPRESSION: Chronic interstitial lung disease similar to comparison. No acute lung parenchymal proce ss. Dilated and tortuous aorta matching comparison.
[2020-07-24 12:21] LABS: Absolute Lymphocytes (CBC) 1.7 K/uL (0.7-4.9); Basophils % 1.1 % (0-1.3); Hematocrit 38.1 % (36.0-45.0); Lymphocytes % 18.8 % (15.3-44.8); MPV 8.2 fL (7.6-11.3); RBC Red Blood Cell Count 4.55 M/uL (3.86-4.86)
[2020-07-24 12:46] LABS: BUN Blood Urea Nitrogen 16 mg/dL (7-18); Bicarbonate 30 mmol/L (21-32); Glucose Level 116 mg/dL (74-106); NT PRO-BNP 515 pg/mL (<450); Sodium Level 142 mmol/L (136-145); Troponin (Emerg Dept Use Only) < 0.02 ng/mL (0.0-0.045)
--- NOTE | 2020-07-24 13:34 | RAD REPORT ---
EXAM DESCRIPTION: CT - Chest For Pe Angio - 07/24/2020 1:19 pm CLINICAL HISTORY: Chest pain. CHEST PAIN COMPARISON: No comparisons TECHNIQUE: CT angiogram of the pulmonary arteries was performed with MIP. All CT scans are performed using dose optimization technique as appropriate and may include automated exposure control or mA/KV adjustment according to patient size. FINDINGS: No evidence of pulmonary thromboembolism. Aneurysmal dilatation of the thoracic aorta is noted. This includes dilatation of root of the rib aor ta to 5 cm the aortic arch at 5.4 cm. Ectatic change in the descending thoracic aorta is noted as wel l. Linear subsegmental atelectasis in both posterior lung bases. No significant pericardial or pleural fluid. No concerning bony finding. Numerous cysts are present in liver. IMPRESSION: No evidence of pulmonary thromboembolism. Aneurysmal dilatation the thoracic aorta is present.
--- NOTE | 2020-07-24 14:22 | EDPHYS ---
Physician Documentation [facility] Name: Syl Sheikh Age: 80 yrs Sex: Female : 1940 Arrival Date: 07/24/2020 Time: 10:54 Bed 20 Private MD: ED Physician Gregg Silvestre HPI: 07/24 13:34 This 80 yrs old Female presents to ER via EMS with complaints of chest pain. rn 13:34 The patient or guardian reports chest pain that is located primarily in the anterior rn chest wall, left. Onset: at an unknown time. The pain radiates to the left arm. Associated signs and symptoms: Pertinent positives: shortness of breath, Pertinent negatives: abdominal pain, cough, diaphoresis, lower extremity swelling, lightheadedness, palpitations, syncope, vomiting. The chest pain is described as dull. Duration: The patient or guardian reports multiple episodes, that are intermittent. Modifying factors: The symptoms are alleviated by nothing. the symptoms are aggravated by nothing. Severity of pain: At its worst the pain was mild in the emergency department the pain is unchanged. The patient has experienced similar episodes in the past. Reports chest pain, left sided, radiates to left arm, intermittent, no fever, no trauma. Does not feel ill, no cough. No hx of PE/DVT. Denies previous heart attack. Has had 2 strokes. . Historical: - Allergies: 11:05 Lisinopril; bp 11:05 Codeine; bp 11:05 Vicodin; bp 11:05 Sulfa (Sulfonamide Antibiotics); bp 11:05 Vancomycin; bp 11:05 statin drugs; bp 11:05 Hydrocodone-Acetaminophen; bp 11:05 butorphanol tartrate; bp 11:05 Ibuprofen; bp 11:05 Stadol; bp 11:05 metformin; bp - Home Meds: 11:05 Clonidine Oral [Active]; amlodipine 2.5 mg tab 1 tab once daily [Active]; bp pentoxifylline 400 mg Oral TbER 1 tab 2 times per day [Active]; paroxetine HCl 10 mg Oral tab 1 tab once daily [Active]; pantoprazole 40 mg Oral TbEC 1 tab once daily [Active]; - PMHx: 11:05 abdominal aortic aneurysm; Diabetes - NIDDM; GERD; TIA; Hypertension; CVA; bp - Immunization history:: Last tetanus immunization: up to date. - Social history:: Smoking status: unknown. - Family history:: not pertinent. - Hospitalizations: : No recent hospitalization is reported. ROS: 14:19 Constitutional: Negative for fever, chills, and weight loss, Eyes: Negative for injury, rn pain, redness, and discharge, Neck: Negative for injury, pain, and swelling, Cardiovascular: Negative for palpitations, and edema, Respiratory: Negative for cough, wheezing, and pleuritic chest pain, Abdomen/GI: Negative for abdominal pain, nausea, vomiting, diarrhea, and constipation, MS/Extremity: Negative for injury and deformity, Skin: Negative for injury, rash, and discoloration, Neuro: Negative for headache, weakness, numbness, tingling, and seizure. Exam: 14:19 Constitutional: This is a well developed, well nourished patient who is awake, alert, rn and in no acute distress. Head/Face: Normocephalic, atraumatic. Cardiovascular: Regular rate and rhythm. No pulse deficits. Respiratory: No increased work of breathing, no retractions or nasal flaring. Abdomen/GI: soft, non-tender Skin: Warm, dry MS/ Extremity: Pulses equal, no cyanosis. Neurovascular intact. Full, normal range of motion. Equal circumference. Neuro: Awake and alert, GCS 15 14:22 ECG was reviewed by the Attending Physician. rn Vital Signs: 10:54 BP 171 / 108; Pulse 86; Resp 18; Pulse Ox 99% ; bp 12:06 BP 164 / 90; Pulse 89; Resp 23; Pulse Ox 100% ; bp 13:00 BP 168 / 93; Pulse 80; Resp 16; Pulse Ox 98% ; bp 14:30 BP 168 / 94; Pulse 94; Resp 24; Temp 98; Pulse Ox 98% ; bp MDM: 11:00 Patient medically screened. rn 14:19 Differential diagnosis: acute myocardial infarction, acute pericarditis, anxiety, rn coronary artery disease chest wall pain, costochondritis, esophagitis, gastroesophageal reflux disease (GERD), pleurisy, pneumonia, pneumothorax, pulmonary embolus. Data reviewed: vital signs, nurses notes, lab test result(s), EKG, radiologic studies, CT scan, plain films, and as a result, I will discharge patient. Counseling: I had a detailed discussion with the patient and/or guardian regarding: the historical points, exam findings, and any diagnostic results supporting the discharge/admit diagnosis, lab results, radiology results, the need for outpatient follow up, to return to the emergency department if symptoms worsen or persist or if there are any questions or concerns that arise at home. Response to treatment: the patient's symptoms have markedly improved after treatment, and as a result, I will discharge patient. Special discussion: Based on the patient's history, exam, and Dx evaluation, there is no indication for emergent intervention or inpatient Tx. It is understood by the patient/guardian that if the Sx's persist or worsen they need to return immediately for re-evaluation. I discussed with the patient/guardian in detail that at this point there is no indication for admission to the hospital. It is understood, however, that if the symptoms persist or worsen the patient needs to return immediately for re-evaluation. ED course: Consulted with Dr. Soliman, states believes can be discharged after negative w/u here, has had multiple chest pain evaluations, and states very anxious. Recommends dc home with clinic visit in AM. . 07/24 11:01 Order name: CBC with Diff; Complete Time: 12:25 rn 07/24 11:01 Order name: Basic Metabolic Panel; Complete Time: 12:49 rn 07/24 11:01 Order name: Troponin (emerg Dept Use Only); Complete Time: 12:49 rn 07/24 11:01 Order name: XRAY Chest (1 view); Complete Time: 11:47 rn 07/24 11:01 Order name: D-Dimer; Complete Time: 12:49 rn 07/24 11:01 Order name: BNP; Complete Time: 12:49 rn 07/24 11:01 Order name: IV Start; Complete Time: 12:07 rn 07/24 11:01 Order name: EKG; Complete Time: 11:02 rn 07/24 11:01 Order name: EKG - Nurse/Tech; Complete Time: 12:07 rn 07/24 12:49 Order name: CT Chest For PE Angio; Complete Time: 13:36 rn EC:22 Rate is 82 beats/min. Rhythm is regular. QRS [place] is Normal. [place] interval is normal. QRS rn interval is normal. QT interval is normal. No Q waves. T waves are Normal. No ST changes noted. Clinical impression: NSR w/ Non-specific ST/T Changes. Interpreted by me. Reviewed by me. Administered Medications: No medications were administered Disposition: 07/24/20 14:22 Discharged to Home. Impression: Chest pain, unspecified. - Condition is Stable. - Discharge Instructions: Nonspecific Chest Pain. - Medication Reconciliation Form, Thank You Letter, Antibiotic Education, Prescription Opioid Use form. - Follow up: Private Physician; When: Tomorrow; Reason: Recheck today's complaints, Re-evaluation by your physician. - Problem is new. - Symptoms have improved. Signatures: Dispatcher [employer] EDMS Gregg Silvestre MD MD rn Cassie Byrd RN RN ss Rico Riley RN RN bp Corrections: (The following items were deleted from the chart) 15:09 14:22 07/24/2020 14:22 Discharged to Home. Impression: Chest pain, unspecified. ss Condition is Stable. Forms are Medication Reconciliation Form, Thank You Letter, Antibiotic Education, Prescription Opioid Use. Follow up: Private Physician; When: Tomorrow; Reason: Recheck today's complaints, Re-evaluation by your physician. Problem is new. Symptoms have improved. rn
--- NOTE | 2020-07-24 14:22 | ER ---
Nurse's Notes [facility] Name: Syl Sheikh Age: 80 yrs Sex: Female : 1940 Arrival Date: 07/24/2020 Time: 10:54 Bed 20 Private MD: Diagnosis: Chest pain, unspecified Presentation: 07/24 10:54 Chief complaint: EMS states: ANXIETY AND LEFT CHEST PAIN. bp 10:54 Coronavirus screen: At this time, the client does not indicate any symptoms associated bp with coronavirus-19. Ebola Screen: No symptoms or risks identified at this time. Initial Sepsis Screen: Does the patient meet any 2 criteria? No. Patient's initial sepsis screen is negative. Does the patient have a suspected source of infection? No. Patient's initial sepsis screen is negative. Risk Assessment: Do you want to hurt yourself or someone else? Patient reports no desire to harm self or others. Onset of symptoms is unknown. 10:54 Method Of Arrival: EMS: [facility] bp 10:54 Acuity: MP 3 bp 10:54 Care prior to arrival: Glucose check: 129. bp Triage Assessment: 10:55 General: Appears in no apparent distress. uncomfortable, slender, Behavior is bp cooperative, appropriate for age, anxious. Pain: Complains of pain in chest. EENT: No deficits noted. Neuro: Level of Consciousness is awake, alert, obeys commands, Oriented to Appropriate for age. Cardiovascular: No deficits noted. Rhythm is sinus rhythm. Respiratory: No deficits noted. GI: No signs and/or symptoms were reported involving the gastrointestinal system. : No signs and/or symptoms were reported regarding the genitourinary system. Derm: No deficits noted. Musculoskeletal: No deficits noted. Historical: - Allergies: 11:05 Lisinopril; bp 11:05 Codeine; bp 11:05 Vicodin; bp 11:05 Sulfa (Sulfonamide Antibiotics); bp 11:05 Vancomycin; bp 11:05 statin drugs; bp 11:05 Hydrocodone-Acetaminophen; bp 11:05 butorphanol tartrate; bp 11:05 Ibuprofen; bp 11:05 Stadol; bp 11:05 metformin; bp - Home Meds: 11:05 Clonidine Oral [Active]; amlodipine 2.5 mg tab 1 tab once daily [Active]; bp pentoxifylline 400 mg Oral TbER 1 tab 2 times per day [Active]; paroxetine HCl 10 mg Oral tab 1 tab once daily [Active]; pantoprazole 40 mg Oral TbEC 1 tab once daily [Active]; - PMHx: 11:05 abdominal aortic aneurysm; Diabetes - NIDDM; GERD; TIA; Hypertension; CVA; bp - Immunization history:: Last tetanus immunization: up to date. - Social history:: Smoking status: unknown. - Family history:: not pertinent. - Hospitalizations: : No recent hospitalization is reported. Screenin:00 Abuse screen: Denies threats or abuse. Denies injuries from another. Nutritional bp screening: No deficits noted. Tuberculosis screening: No symptoms or risk factors identified. Fall Risk No fall in past 12 months (0 pts). Assessment: 11:00 General: SEE TRIAGE NOTE. bp 12:07 Reassessment: Patient appears in no apparent distress at this time. Patient and/or bp family updated on plan of care and expected duration. Pain level reassessed. Patient is alert, oriented x 3, equal unlabored respirations, skin warm/dry/pink. ALL CURRENT ORDERS COMPLETED. 12:36 Reassessment: Dr. Silvestre notified of critical lab value : DDIMER 21,[id number]. ss 13:45 Reassessment: Patient appears in no apparent distress at this time. Patient and/or bp family updated on plan of care and expected duration. Pain level reassessed. Patient is alert, oriented x 3, equal unlabored respirations, skin warm/dry/pink. ALL CURRENT ORDERS COMPLETE AND RESULTED. 14:44 Reassessment: PT D/C HOME VIA W/C WITH FAMILY, DX WITH NONSPECIFIC CHEST PAIN. bp Vital Signs: 10:54 BP 171 / 108; Pulse 86; Resp 18; Pulse Ox 99% ; bp 12:06 BP 164 / 90; Pulse 89; Resp 23; Pulse Ox 100% ; bp 13:00 BP 168 / 93; Pulse 80; Resp 16; Pulse Ox 98% ; bp 14:30 BP 168 / 94; Pulse 94; Resp 24; Temp 98; Pulse Ox 98% ; bp ED Course: 10:54 Patient arrived in ED. bp 10:55 Arm band placed on. bp 10:58 Triage completed. bp 11:00 Gregg Silvestre MD is Attending Physician. rn 11:00 Patient has correct armband on for positive identification. Placed in gown. Bed in low bp position. Call light in reach. Side rails up X2. roving teller on. Pulse ox on. NIBP on. 11:11 Rico Riley, RN is Primary Nurse. bp 11:22 XRAY Chest (1 view) In Process Unspecified. EDMS 12:05 Inserted saline lock: 22 gauge in right forearm, using aseptic technique. Blood bp collected. 13:19 CT Chest For PE Angio In Process Unspecified. EDMS 14:30 No provider procedures requiring assistance completed. IV discontinued, intact, bp bleeding controlled, No redness/swelling at site. Pressure dressing applied. Administered Medications: No medications were administered Outcome: 14:22 Discharge ordered by . rn 14:30 Discharged to home via wheelchair. bp 14:30 Condition: stable 14:30 Discharge instructions given to patient, Instructed on discharge instructions, follow up and referral plans. Demonstrated understanding of instructions, follow-up care. 15:09 Patient left the ED. Signatures: Dispatcher [employer] EDTX Gregg Silvestre MD MD rn Smirch, Shelby, RN RN Rico Riley, RN RN bp
[2020-07-24 15:50] VITALS: O2SAT 98
[2020-07-24 15:51] VITALS: BP 168/94; TEMP 98
--- NOTE | 2020-07-25 07:34 | EKG ---
Test Date: 2020-07-24 Test Time: 11:54:27 Paint Stock Clerk: BP MEASUREMENT RESULTS: Intervals: Rate: 82 VT: 226 QRSD: 76 QT: 392 QTc: 457 [place]: P: 50 VT: 226 QRS: -26 T: 74 INTERPRETIVE STATEMENTS: Sinus rhythm with 1st degree AV block Minimal voltage criteria for LVH, may be normal variant Septal infarct, age undetermined Inferior infarct, age undetermined Abnormal ECG Compared to ECG 02/21/2020 11:06:07 First degree AV block now present Atrial premature complex(es) no longer present Early repolarization no longer present Myocardial infarct finding still present Electronically Signed On 07-25-20 07:32:30 ANSWERING SERVICE TELEPHONE OPERATOR by Nadeem Swenson
== END 2020-07-24 15:09 | disposition home or self-care (01) ==
LOC: ER 10:53
DX: R07.89 Other chest pain (principal); I10 Essential (primary) hypertension; E11.9 Type 2 diabetes mellitus without complications; Z86.73 Personal history of transient ischemic attack (TIA), and cerebral infarction without residual deficits; Z88.2 Allergy status to sulfonamides; Z88.3 Allergy status to other anti-infective agents; Z88.5 Allergy status to narcotic agent; Z88.6 Allergy status to analgesic agent; Z88.8 Allergy status to other drugs, medicaments and biological substances
CPT/HCPCS: 93005; 85025; 80048; 36415; 85379; 84484; 83880; 71275; 71045; 99284; Q9967